=== PATIENT | male | born 1935 | race Caucasian/White ===

== ENCOUNTER 2016-08-09 10:56 | Inpatient (IN) | payer MEDICARE ==
[~2016-08-09 10:56] MED LIST: ALPRAZolam 0.25 MG TAB PO PRN; ALPRAZolam 0.5 MG TAB PO PRN; ASPIRIN 325 MG TAB PO STA; ATORVASTATIN 80 MG TAB PO STA; NITROGLYCERIN SL TABS 0.4 MG TAB SUBLINGUAL PRN; SODIUM CHLORIDE 0.9% 1,000 ML in EMPTY BAG 1 BAG IV ONE
[2016-08-09 11:36] LABS: Basophils % (A) 0 %; CH 33.1; CHCM 33.4; Eosinophils # (A) 0.1 k/uL (0-0.7); Eosinophils % (A) 2 %; HCT 42.5 % (39.0-53.0); HDW 2.39; HGB 14.1 gm/dL (13.0-17.5); Luc # (Auto) 0.04; Luc % (Auto) 1; Lymphocytes # (A) 1.7 k/uL (1.0-4.8); Lymphocytes % (A) 38 %; MCH 33.2 pg (25.0-35.0); MCHC 33.3 g/dL (31.0-37.0); MCV 99.6 fL (80.0-100.0); Mean Platelet Volume 9.1; Monocytes # (A) 0.2 k/uL (0-1.0); Monocytes % (A) 5 %; Neutrophils # (A) 2.4 k/uL (1.3-7.7); Neutrophils % (A) 55 %; RBC 4.26 m/uL (4.30-5.90); RDW 14.1 % (11.5-15.5); WBC 4.4 k/uL (3.8-10.6); WBC (Perox) 4.28
[2016-08-09] MEDS ORDERED: HEPARIN SODIUM 1,000 UNIT/ML VIAL ONE (11:39)
[2016-08-09] MEDS ORDERED: VERAPAMIL 2.5 MG/ML 2 ML AMP ONE (11:39)
[2016-08-09] MEDS ORDERED: LIDOCAINE 2% INJ 20 MG/ML (20 ML MDV) ONE (11:40)
[2016-08-09 11:42] LABS: INR 1.3 (<1.1); Prothrombin Time 12.9 sec (9.0-12.0)
[2016-08-09 11:47] LABS: Glucose 205 mg/dL (74-99)
[2016-08-09 11:48] LABS: Anion Gap 9 mmol/L; Blood Urea Nitrogen 15 mg/dL (9-20); Calcium 9.2 mg/dL (8.4-10.2); Carbon Dioxide 26 mmol/L (22-30); Chloride 108 mmol/L (98-107); Non-African American GFR(MDRD) >60 (>60 ml/min/1.73 sqM); Potassium 4.3 mmol/L (3.5-5.1); Sodium 143 mmol/L (137-145)
[2016-08-09 11:56] LABS: RBC Morphology Normal
[2016-08-09] MEDS ORDERED: MIDAZOLAM 2 MG/2 ML VIAL ONE (11:59)
[2016-08-09] MEDS ORDERED: MIDAZOLAM 2 MG/2 ML VIAL IV ONE (12:24)
[2016-08-09] MEDS ORDERED: fentaNYL (PF) 50 MCG/ML 2 ML AMP ONE ×2 (12:26→12:27)
[2016-08-09] MEDS ORDERED: LIDOCAINE 2% INJ 20 MG/ML SQ ONE (12:26)
[2016-08-09] MEDS: fentaNYL (PF) 50 MCG/ML 2 ML AMP IV ONE ×2 (12:30→12:40)
[2016-08-09] MEDS: VERAPAMIL SYRINGE (5 MG/10 ML) IV ONE ×2 (12:35→12:45)
[2016-08-09] MEDS ORDERED: HEPARIN SODIUM 1,000 UNIT/ML VIAL IV ONE (12:35)
[2016-08-09] MEDS ORDERED: IOHEXOL 350 MG/ML 125ML BOTTLE INJ ONE (12:47)
[2016-08-09 12:58] LABS: Glucose,Whole Blood 184 mg/dL (75-99)
[2016-08-09] MEDS ORDERED: RX INFO: IV CONTRAST WAS GIVEN 1 EACH MISC MISCELLANE PRN (12:59)
[2016-08-09] MEDS ORDERED: SODIUM CHLORIDE 0.9% 1,000 ML IV SCH (13:00)
[2016-08-09 13:28] LABS: Glucose,Whole Blood 151 mg/dL (75-99)
--- NOTE | 2016-08-09 13:54 | P.GSCN ---
History of Present Illness Consult date: 08/09/16 Reason for Consult: Coronary artery disease History of present illness: The patient is an 80-year-old male a history of multiple medical problems who reports worsening dyspnea on exertion for the past several months. He states that he can only walk about 20 yards before getting short of breath. He denies chest pain. He denies uterus, chills, swelling in his legs, or syncopal episodes. He states that overall he is quite independent. He lives alone at home and does all of his activities of daily living himself. Elective cardiac catheterization performed today reveals multivessel coronary artery disease. I was asked to evaluate him for possible coronary artery bypass surgery. 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) - Cardiovascular Reports decreased exercise tolerance, Reports dyspnea on exertion, Reports shortness of breath - Genitourinary Reports kidney stones, Reports urinary hesitancy Past Medical History Past Medical History: Diabetes Mellitus, Deep Vein Thrombosis (DVT), Eye Disorder, Hyperlipidemia, Osteoarthritis (OA), Prostate Disorder, Pulmonary Embolus (PE) Additional Past Medical History / Comment(s): SOB w/exertion History of Any Multi-Drug Resistant Organisms: None Reported Additional Past Surgical History / Comment(s): corneal transplant Past Anesthesia/Blood Transfusion Reactions: No Reported Reaction Past Psychological History: No Psychological Hx Reported Smoking Status: Former smoker Past Alcohol Use History: None Reported Additional Past Alcohol Use History / Comment(s): smoked a little as teen Past Drug Use History: None Reported - Past Family History Mother Family Medical History: No Reported History Medications and Allergies Home Medications Medication Instructions Recorded Confirmed Type Clindamycin Opthalmic 1 drop BOTH EYES TUTH 08/06/16 History Dorzolamide 2% [Trusopt 2%] 1 drops LEFT EYE DAILY 08/06/16 08/09/16 History Glimepiride [Amaryl] 4 mg PO BID 08/06/16 08/09/16 History Ibuprofen [Motrin] 800 mg PO Q8HR PRN 08/06/16 08/09/16 History Metoprolol Succinate [Toprol XL] 25 mg PO DAILY 08/06/16 08/09/16 History Pravastatin Sodium [Pravachol] 10 mg PO DAILY 08/06/16 08/09/16 History Warfarin [Coumadin] 10 mg PO DAILY 08/06/16 08/09/16 History glipiZIDE [Glucotrol] 10 mg PO DAILY 08/06/16 08/09/16 History metFORMIN HCL [metFORMIN HCL ER] 1,000 mg PO BID 08/06/16 08/09/16 History Allergies Allergy/AdvReac Type Severity Reaction Status Date / Time Penicillins Allergy Swelling Verified 08/09/16 11:17 codeine AdvReac agitated Verified 08/09/16 11:17 Surgical - Exam Vital Signs Temp Pulse Resp BP Pulse Ox 97.6 F 61 18 166/77 95 08/09/16 11:27 08/09/16 11:27 08/09/16 11:27 08/09/16 11:27 08/09/16 11:27 - General well developed, well nourished, no distress - Eyes normal ocular movement - Respiratory normal respiratory effort, clear to auscultation - Cardiovascular Rhythm: regular - Abdomen Abdomen: soft, non tender - Psychiatric oriented to time, oriented to person, oriented to place, speech is normal Results - Labs 08/09/16 11:20 08/09/16 11:20 Abnormal Lab Results - Last 24 Hours (Table) 08/09/16 08/09/16 08/09/16 Range/Units 11:20 11:20 11:20 RBC 4.26 L (4.30-5.90) m/uL Plt Count 68 L (150-450) k/uL PT 12.9 H (9.0-12.0) sec Chloride 108 H (98-107) mmol/L Glucose 205 H (74-99) mg/dL POC Glucose (mg/dL) (75-99) mg/dL 08/09/16 08/09/16 Range/Units 11:22 13:07 RBC (4.30-5.90) m/uL Plt Count (150-450) k/uL PT (9.0-12.0) sec Chloride (98-107) mmol/L Glucose (74-99) mg/dL POC Glucose (mg/dL) 184 H 151 H (75-99) mg/dL Diabetes panel 08/09/16 Range/Units 11:20 Sodium 143 (137-145) mmol/L Potassium 4.3 (3.5-5.1) mmol/L Chloride 108 H (98-107) mmol/L Carbon Dioxide 26 (22-30) mmol/L BUN 15 (9-20) mg/dL Creatinine 1.06 (0.66-1.25) mg/dL Glucose 205 H (74-99) mg/dL Calcium 9.2 (8.4-10.2) mg/dL Calcium panel 08/09/16 Range/Units 11:20 Calcium 9.2 (8.4-10.2) mg/dL Pituitary panel 08/09/16 Range/Units 11:20 Sodium 143 (137-145) mmol/L Potassium 4.3 (3.5-5.1) mmol/L Chloride 108 H (98-107) mmol/L Carbon Dioxide 26 (22-30) mmol/L BUN 15 (9-20) mg/dL Creatinine 1.06 (0.66-1.25) mg/dL Glucose 205 H (74-99) mg/dL Calcium 9.2 (8.4-10.2) mg/dL Adrenal panel 08/09/16 Range/Units 11:20 Sodium 143 (137-145) mmol/L Potassium 4.3 (3.5-5.1) mmol/L Chloride 108 H (98-107) mmol/L Carbon Dioxide 26 (22-30) mmol/L BUN 15 (9-20) mg/dL Creatinine 1.06 (0.66-1.25) mg/dL Glucose 205 H (74-99) mg/dL Calcium 9.2 (8.4-10.2) mg/dL Assessment and Plan (1) Coronary artery disease Status: Acute Plan: The patient's cardiac catheterization was personally reviewed. He does appear to have targets suitable for bypass. A coronary artery bypass is recommended. The risks, benefits, and alternatives to this procedure were discussed with the patient and his family members. All of their questions were answered. At this point, the patient is unsure whether he would like to proceed with surgery. He would like to consider his options and discuss them with his family tonight. In fact he wishes to be discharged home this afternoon. I did provide him with my contact information and told him we will check on him again if he is still here in the morning. If he is agreeable, we will obtain the standard preoperative workup to assist in risk-stratifying his surgery. After reviewing his workup thus far, he does appear to have some thrombocytopenia. His most recent platelet count is 68,000. I would like him to be evaluated by hematology as part of his workup. Thank you for allowing me to participate in the care of this patient. Should you have any questions please feel free to contact me at your earliest convenience. Time with Patient: Greater than 30
--- NOTE | 2016-08-09 15:23 | LTR ---
August 09, 2016 RE: Angel Michele Dear Sage: Mr. Angel Michele underwent a heart catheterization today and that showed critical disease involving the distal left main coronary artery with severe triple-vessel CAD. In view of his anatomy, I recommended proceeding with coronary artery bypass grafting. I want to thank you for allowing me to participate in his care and please do not hesitate to call if you have any questions or concerns. Sincerely, FRANCES OLEARY MD
[2016-08-09] MEDS ORDERED: MD COMMUNICATION TO PHARMACY 1 EACH MISC PO ONE (15:33)
[2016-08-09 16:20] LABS: Basophils % (A) 0 %; CH 33.5; CHCM 34.1; Eosinophils # (A) 0.1 k/uL (0-0.7); Eosinophils % (A) 2 %; HDW 2.51; HGB 13.5 gm/dL (13.0-17.5); Luc # (Auto) 0.03; Luc % (Auto) 1; Lymphocytes # (A) 1.3 k/uL (1.0-4.8); Lymphocytes % (A) 36 %; MCH 32.5 pg (25.0-35.0); MCHC 32.9 g/dL (31.0-37.0); MCV 98.7 fL (80.0-100.0); Mean Platelet Volume 9.4; Monocytes # (A) 0.2 k/uL (0-1.0); Monocytes % (A) 6 %; Neutrophils % (A) 56 %; RBC 4.16 m/uL (4.30-5.90); RDW 13.8 % (11.5-15.5); WBC 3.6 k/uL (3.8-10.6); WBC (Perox) 3.36
[2016-08-09 16:24] LABS: INR 1.3 (<1.1); Partial Thromboplastin Time 24.5 sec (22.0-30.0); Prothrombin Time 12.6 sec (9.0-12.0)
[2016-08-09 16:29] LABS: ALT 55 U/L (21-72); AST 37 U/L (17-59); Alkaline Phosphatase 68 U/L (38-126); Anion Gap 7 mmol/L; Blood Urea Nitrogen 14 mg/dL (9-20); Calcium 9.1 mg/dL (8.4-10.2); Carbon Dioxide 25 mmol/L (22-30); Chloride 109 mmol/L (98-107); Cholesterol 175 mg/dL (<200); Glucose 211 mg/dL (74-99); HDL Cholesterol 36 mg/dL (40-60); Magnesium 1.9 mg/dL (1.6-2.3); Non-African American GFR(MDRD) >60 (>60 ml/min/1.73 sqM); Potassium 3.9 mmol/L (3.5-5.1); Sodium 141 mmol/L (137-145); Total Bilirubin 2.1 mg/dL (0.2-1.3); Total Protein 6.5 g/dL (6.3-8.2); Triglycerides 314 mg/dL (<150)
[2016-08-09 16:58] LABS: Hepatitis B Surface Ag Index 0.06
[2016-08-09] MEDS ORDERED: HEPARIN SODIUM,PORCINE 5,000 UNIT/ML 1 ML VIAL IV ONE (17:00)
[2016-08-09 17:04] LABS: Hepatitis B Core IgM Index 0.01
[2016-08-09 17:15] LABS: Hepatitis C Virus IgG Index 0.02
[2016-08-09 17:20] LABS: Hepatitis C Virus IgG Ab Negative (Negative)
[2016-08-09] MEDS: HEPARIN SODIUM,PORCINE/D5W PMX 25,000 UNIT in DEXTROSE/WATER 1 500ML.BAG IV SCH (17:28)
--- NOTE | 2016-08-09 19:20 | XR ---
EXAMINATION TYPE: XR chest 2V DATE OF EXAM: 08/09/2016 6:30 PM COMPARISON: NONE HISTORY: Preoperative. Cardiac surgery. TECHNIQUE: Frontal and lateral views of the chest are obtained. FINDINGS: There is no focal air space opacity, pleural effusion, or pneumothorax seen. The cardiac silhouette size is upper limits of normal. The osseous structures are intact. IMPRESSION: No acute cardiopulmonary process.
[2016-08-09 21:06] LABS: Glucose,Whole Blood 186 mg/dL (75-99)
[2016-08-09] MEDS: GLIMEPIRIDE 4 MG TAB PO SCH (22:06)
[2016-08-09] MEDS: HEPARIN SODIUM,PORCINE 5,000 UNIT/ML 1 ML VIAL IV PRN (22:06)
[2016-08-09 22:29] LABS: Appearance,Urine Clear (Clear); Bilirubin,Urine Negative (Negative); Glucose,Urine (UA) Negative (Negative); Ketones,Urine Negative (Negative); Leukocyte Esterase,Urine Negative (Negative); Nitrite,Urine Negative (Negative); PH, Urine 6.5 (5.0-8.0); Protein,Urine Negative (Negative); Specific Gravity,Urine 1.023 (1.001-1.035); UA Billing (MACRO vs. MICRO) CHEM; Urobilinogen,Urine <2.0 mg/dL (<2.0)
[2016-08-10 06:00] LABS: Glucose,Whole Blood 155 mg/dL (75-99)
[2016-08-10] MEDS: HEPARIN SODIUM,PORCINE 5,000 UNIT/ML 1 ML VIAL IV PRN ×2 (06:21→16:12)
[2016-08-10 06:40] LABS: CH 32.9; MCV 97.4 fL (80.0-100.0); Monocytes # (A) 0.2 k/uL (0-1.0); RDW 13.8 % (11.5-15.5)
[2016-08-10 07:17] LABS: Basophils % (A) 0 %; Eosinophils # (A) 0.1 k/uL (0-0.7); Eosinophils % (A) 2 %; HCT 39.2 % (39.0-53.0); HDW 2.49; HGB 13.1 gm/dL (13.0-17.5); Luc # (Auto) 0.06; Luc % (Auto) 2; Lymphocytes # (A) 1.4 k/uL (1.0-4.8); Lymphocytes % (A) 36 %; MCH 32.6 pg (25.0-35.0); MCHC 33.4 g/dL (31.0-37.0); Mean Platelet Volume 9.5; Monocytes % (A) 6 %; Neutrophils # (A) 2.2 k/uL (1.3-7.7); Neutrophils % (A) 55 %; RBC 4.02 m/uL (4.30-5.90); WBC (Perox) 3.47
--- NOTE | 2016-08-10 08:07 | US ---
EXAMINATION TYPE: US carotid duplex BILAT DATE OF EXAM: 08/09/2016 5:03 PM COMPARISON: NONE CLINICAL HISTORY: Ankle Brachial Index (JENNIFER) . EXAM MEASUREMENTS: RIGHT: Peak Systolic Velocity (PSV) cm/sec ----- Right CCA: 54.3 ----- Right ICA: 51.0 ----- Right ECA: 112.4 ICA/CCA ratio: 0.9 RIGHT: End Diastole cm/sec ----- Right CCA: 11.3 ----- Right ICA: 16.4 ----- Right ECA: 7.2 LEFT: Peak Systolic Velocity (PSV) cm/sec ----- Left CCA: 65.5 ----- Left ICA: 61.2 ----- Left ECA: 82.4 ICA/CCA ratio: 0.9 LEFT: End Diastole cm/sec ----- Left CCA: 12.4 ----- Left ICA: 18.5 ----- Left ECA: 13.3 VERTEBRALS (direction of flow): Right Vertebral: Antegrade Left Vertebral: Antegrade No significant velocity elevations IMPRESSION: 1. Atheromatous plaquing without significant flow-limiting stenosis. Criteria for Assigning % of Stenosis / Diameter reduction (Estimation based on the indirect measurements of the internal carotid artery velocities (ICA PSV). 1. Normal (no stenosis)=ICA PSV < 125 cm/s: ratio < 2.0: ICA EDV<40 cm/s. 2. Less than 50% stenosis=ICA PSV < 125 cm/s: ratio < 2.0: ICA EDV<40 cm/s. 3. 50 to 69% stenosis=ICA PSV of 125 to 230 cm/s: ration 2.0 ? 4.0: ICA EDV 40-100 cm/s. 4. Greater than 70% stenosis to near occlusion= ICA PSV > 230 cm/s: ratio > 4.0: ICA EDV > 100 cm/s. 5. Near occlusion= ICA PSV velocities may be low or undetectable: variable ratio and ICA EDV. 6. Total occlusion=unable to detect flow.
[2016-08-10] MEDS ORDERED: PRAVASTATIN SODIUM 20 MG TAB PO SCH (09:00)
[2016-08-10] MEDS: DORZOLAMIDE HCL 2% DROPS 10 ML BTL LEFT EYE SCH (09:01)
[2016-08-10] MEDS: MUPIROCIN 2% OINT 22 GM TUBE TOPICAL SCH ×2 (09:02→21:08)
[2016-08-10] MEDS: GLIMEPIRIDE 4 MG TAB PO SCH ×2 (09:02→21:08)
[2016-08-10] MEDS: glipiZIDE 10 MG TAB PO SCH (09:02)
[2016-08-10] MEDS: METOPROLOL SUCCINATE (ER) 25 MG TAB.ER.24H PO SCH (09:02)
--- NOTE | 2016-08-10 09:29 | ECHOF ---
Referral Reason:LV function MEASUREMENTS -------- HEIGHT: 177.8 cm WEIGHT: 111.6 kg BP: 151/70 IVSd: 1.6 cm (0.6 - 1.1) LVIDd: 5.1 cm (3.9 - 5.3) LVPWd: 1.6 cm (0.6 - 1.1) IVSs: 2.4 cm LVIDs: 3.6 cm LVPWs: 2.4 cm LAESV Index (A-L): 16.65 ml/m Ao Diam: 3.5 cm (2.0 - 3.7) AV Cusp: 1.9 cm (1.5 - 2.6) LA Diam: 3.8 cm (2.7 - 3.8) MV E Marcio: 0.61 m/s MV DecT: 267 ms MV A Marcio: 0.81 m/s MV E/A Ratio: 0.76 AV maxP.95 mmHg AV meanP.53 mmHg RAP: 5.00 mmHg RVSP: 12.04 mmHg FINDINGS -------- Sinus rhythm. This was a technically difficult study with suboptimal views. There is moderate concentric left ventricular hypertrophy. Overall left ventricular systolic function is low-normal with, an EF between 50 - 55 %. The right ventricle is normal in size and function. Normal LA size by volume 22+/-6 ml/m2. The right atrium is normal in size. 1.5mg of Definity was utilized for enhancement of images Aortic valve is trileaflet and is mildly thickened. There is no evidence of aortic regurgitation. There is no evidence of aortic stenosis. Mild mitral annular calcification present. There is trace mitral regurgitation. Trace tricuspid regurgitation present. There is no evidence of pulmonary hypertension. The right ventricular systolic pressure, as measured by Doppler, is 12.04mmHg. The pulmonic valve was not well visualized. The aortic root size is normal. There is no pericardial effusion. CONCLUSIONS -------- 1. Sinus rhythm. 2. Trace tricuspid regurgitation present. 3. There is no evidence of pulmonary hypertension. 4. The right ventricular systolic pressure, as measured by Doppler, is 12.04mmHg. 5. The pulmonic valve was not well visualized. 6. The aortic root size is normal. 7. There is no pericardial effusion. 8. This was a technically difficult study with suboptimal views. 9. There is moderate concentric left ventricular hypertrophy. 10. Overall left ventricular systolic function is low-normal with, an EF between 50 - 55 %. 11. Normal LA size by volume 22+/-6 ml/m2. 12. 1.5mg of Definity was utilized for enhancement of images 13. Aortic valve is trileaflet and is mildly thickened. 14. Mild mitral annular calcification present. 15. There is trace mitral regurgitation. INVESTMENT ACCOUNTANT: Darwin Schaefer RDCS
--- NOTE | 2016-08-10 09:56 | CC ---
DATE OF SERVICE: August 09, 2016 PERFORMING PHYSICIAN: Angel Tinsley MD, cigar packer and grader. PROCEDURE PERFORMED: Selective right and left coronary angiogram. INDICATION: This is a pleasant 80-year-old gentleman who was referred by Dr. Sage Parks for further evaluation of chest discomfort. The patient has been experiencing intermittent episodes of chest discomfort consistent with angina. He underwent dobutamine stress echocardiogram which showed anterior and inferior ischemia. He was brought today to undergo a heart catheterization. APPROACH: Right radial artery. COMPLICATIONS: None. LEVEL OF SEDATION: Moderate. Sedation length of 30 minutes. PROCEDURE DESCRIPTION: After obtaining informed consent, the patient was brought to the cardiac molder labels. The right common femoral artery was cannulated using micropuncture technique. The micropuncture wire passed easily, then I placed a 6 [place] sheath in the right radial artery. Subsequently, I did selective right and left coronary angiogram using JR4 and JL 3.5 catheters. The procedure was completed without any complication. SELECTIVE CORONARY ANGIOGRAM: 1. The right coronary artery is a large-caliber vessel and it is totally occluded in the midportion. 2. The left main has critical lesion distally appeared to be in the range of 80 to 90%. The lesion involving the ostial left circumflex. 3. The left circumflex is a large-caliber vessel and a nondominant vessel. The ostial left circumflex is diseased in the range of 80% and involving in the plaque from the left main. The left circumflex in the proximal portion gives rise into a large OM branch, which has another disease in the range of 90% to 95%. The left circumflex continues after that as a small to medium caliber vessel in the AV groove. 4. Left anterior descending artery: The ostial/proximal LAD is involved in the plaque from the left main and is heavy calcified with disease that appeared to be in the range of 80% to 90%. The proximal LAD after that had another eccentric lesion, seems to be in the range of 80% to 90%. The LAD in the midportion, seems to have intermediate disease only and distally appeared to have mild disease only. Extensive left to right collaterals were seen filling the RCA distally. CONCLUSION: 1. Heavily calcified right and left coronary system. 2. Occluded right coronary artery in the midportion with collateral fills from the left coronary system. 3. Critical disease involving the distal left main coronary artery and involving the ostial left circumflex and ostial left anterior descending. 4. Critical disease involving the first obtuse marginal branch of the left circumflex. 5. Critical disease involving the proximal left anterior descending. POSTPROCEDURE MANAGEMENT: The patient will be scheduled to be seen by a surgeon for evaluation of coronary arteries.
--- NOTE | 2016-08-10 11:04 | P.PN ---
Subjective Principal diagnosis: Multivessel coronary artery disease, preop coronary artery bypass grafting surgery. Patient currently sitting up in bed in no apparent distress. Son at bedside. Patient is frustrated that he has to wait for surgery. Objective - Vital Signs Vital signs: Vital Signs Temp 97.6 F 08/10/16 09:04 Pulse 60 08/10/16 09:04 Resp 18 08/10/16 09:04 BP 140/81 08/10/16 09:04 Pulse Ox 95 08/10/16 09:04 Intake & Output 08/09/16 08/10/16 08/10/16 18:59 06:59 18:59 Intake Total 795 892.584 240 Output Total 300 300 400 Balance 495 592.584 -160 Weight 109.6 kg Intake: IV 325 600 Sodium Chloride 0.9% 1, 200 600 000 ml @ 100 mls/hr IV . Q10H [facility]OR Rx#:[id number] Intake, IV Titration 20 292.584 Amount Heparin Sodium,Porcine/ 20 292.584 D5w Pmx 25,000 unit In Dextrose/Water 1 500ml. bag @ 8.9 UNITS/KG/HR 19. 86 mls/hr IV .Q24H [facility] Rx #:[id number] Oral 450 240 Output: Urine 300 300 400 Other: Voiding Method Toilet Toilet # Voids 1 1 - Constitutional General appearance: Present: cooperative, no acute distress, obese - Respiratory Details: Lungs sounds most bilaterally. Respirations even, nonlabored. Currently on room air with oxygen saturation 95%. - Cardiovascular Details: S1, S2 present. Regular rate and rhythm, normal sinus rhythm on telemetry. - Gastrointestinal Gastrointestinal Comment(s): Abdomen soft, nontender, nondistended. Active bowel sounds 4 quadrants. - Genitourinary Genitourinary Comment(s): Voiding clear, yellow urine. - Musculoskeletal Musculoskeletal: Present: gait normal, strength equal bilaterally - Psychiatric Psychiatric: Present: A&O x's 3, appropriate affect, intact judgment & insight - Allied health notes Allied health notes reviewed: nursing - Labs CBC & Chem 7: 08/10/16 04:30 08/09/16 15:45 Labs: Abnormal Lab Results - Last 24 Hours (Table) 08/09/16 08/09/16 08/09/16 Range/Units 11:20 11:20 11:20 WBC (3.8-10.6) k/uL RBC 4.26 L (4.30-5.90) m/uL Plt Count 68 L (150-450) k/uL PT 12.9 H (9.0-12.0) sec APTT (22.0-30.0) sec Chloride 108 H (98-107) mmol/L Glucose 205 H (74-99) mg/dL POC Glucose (mg/dL) (75-99) mg/dL Hemoglobin A1c (4.2-6.1) % Total Bilirubin (0.2-1.3) mg/dL Triglycerides (<150) mg/dL HDL Cholesterol (40-60) mg/dL 08/09/16 08/09/16 08/09/16 Range/Units 11:22 13:07 15:45 WBC 3.6 L (3.8-10.6) k/uL RBC 4.16 L (4.30-5.90) m/uL Plt Count 63 L (150-450) k/uL PT (9.0-12.0) sec APTT (22.0-30.0) sec Chloride (98-107) mmol/L Glucose (74-99) mg/dL POC Glucose (mg/dL) 184 H 151 H (75-99) mg/dL Hemoglobin A1c (4.2-6.1) % Total Bilirubin (0.2-1.3) mg/dL Triglycerides (<150) mg/dL HDL Cholesterol (40-60) mg/dL 08/09/16 08/09/16 08/09/16 Range/Units 15:45 15:45 15:45 WBC (3.8-10.6) k/uL RBC (4.30-5.90) m/uL Plt Count (150-450) k/uL PT 12.6 H (9.0-12.0) sec APTT (22.0-30.0) sec Chloride 109 H (98-107) mmol/L Glucose 211 H (74-99) mg/dL POC Glucose (mg/dL) (75-99) mg/dL Hemoglobin A1c 7.0 H (4.2-6.1) % Total Bilirubin 2.1 H (0.2-1.3) mg/dL Triglycerides 314 H (<150) mg/dL HDL Cholesterol 36 L (40-60) mg/dL 08/09/16 08/09/16 08/10/16 Range/Units 20:35 21:05 04:30 WBC (3.8-10.6) k/uL RBC 4.02 L (4.30-5.90) m/uL Plt Count 57 L (150-450) k/uL PT (9.0-12.0) sec APTT 43.3 H (22.0-30.0) sec Chloride (98-107) mmol/L Glucose (74-99) mg/dL POC Glucose (mg/dL) 186 H (75-99) mg/dL Hemoglobin A1c (4.2-6.1) % Total Bilirubin (0.2-1.3) mg/dL Triglycerides (<150) mg/dL HDL Cholesterol (40-60) mg/dL 08/10/16 08/10/16 Range/Units 04:31 05:58 WBC (3.8-10.6) k/uL RBC (4.30-5.90) m/uL Plt Count (150-450) k/uL PT (9.0-12.0) sec APTT 40.8 H (22.0-30.0) sec Chloride (98-107) mmol/L Glucose (74-99) mg/dL POC Glucose (mg/dL) 155 H (75-99) mg/dL Hemoglobin A1c (4.2-6.1) % Total Bilirubin (0.2-1.3) mg/dL Triglycerides (<150) mg/dL HDL Cholesterol (40-60) mg/dL - Imaging and Cardiology Chest x-ray: image reviewed Carotid Dopplers, pulmonary function test, echocardiogram, lower extremity vein mapping reviewed. Assessment and Plan (1) Diabetes Status: Acute (2) Hyperlipidemia Status: Acute (3) History of pulmonary embolus (PE) Status: Acute (4) History of deep vein thrombosis Status: Acute (5) Thrombocytopenia Status: Acute (6) Coronary artery disease Status: Acute Plan: 1. Continue beta abran, statin, heparin drip. Recommend daily aspirin. No Plavix or Coumadin in anticipation of pending surgery. 2. Preoperative teaching initiated and reinforced. 3. Preoperative testing initiated, results reviewed. 4. Hematology consulted secondary to thrombocytopenia. Appreciate recommendations. 5. Patient is agreeable at this time for surgery, however he states that he has to wait longer than Tuesday he wished to go home and come back one week and take him to surgery. Reinforced medical recommendation to remain in the hospital secondary to the nature of his disease process. 6. Encourage increased activity, ambulate in the hallway. 7. Encourage incentive spirometry practice preoperatively. 8. GI/DVT prophylaxis. 9. Anticipate possible coronary artery bypass graft surgery on Tuesday pending completion of all preoperative testing and recommendations of hematology and pulmonology.
[2016-08-10 11:14] LABS: Glucose,Whole Blood 170 mg/dL (75-99)
--- NOTE | 2016-08-10 12:28 | P.CNPUL ---
History of Present Illness Consult date: 08/10/16 Chief complaint: Preoperative pulmonary evaluation for coronary artery bypass surgery History of present illness: 80-year-old male patient, complaining of exertional dyspnea over the past several months. The patient denied having any chest pain. 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 The patient was found to have occluded right coronary artery with collaterals filling from the left. The patient was found to have critical disease involving the left main coronary artery and critical disease involving diffuse marginal branch of circumflex and proximal LAD. Based on this, coronary artery bypass surgery was recommended. The patient was seen by cardiothoracic surgery and the tentative plan to undergo surgery on this patient is on Tuesday. The preoperative echocardiogram showed a preserved LV function with an ejection fraction of 50-55%. No evidence of any pulmonary hypertension. No evidence of any valvular abnormalities. There is evidence of hypertensive heart disease with concentric left ventricular hypertrophy. Chest x-ray shows no acute cardio pulmonary process. He has history of pulmonary embolism and DVT and the patient has been maintained on anticoagulation on outpatient basis with warfarin. Review of Systems All systems: negative Constitutional: Denies chills, Denies fever Eyes: denies blurred vision, denies pain Ears, nose, mouth and throat: Denies headache, Denies sore throat Cardiovascular: Denies chest pain, Denies shortness of breath Respiratory: Reports dyspnea, Denies cough Gastrointestinal: Denies abdominal pain, Denies diarrhea, Denies nausea, Denies vomiting Musculoskeletal: Denies myalgias Integumentary: Denies pruritus, Denies rash Neurological: Denies numbness, Denies weakness Psychiatric: Denies anxiety, Denies depression Endocrine: Denies fatigue, Denies weight change Past Medical History Past Medical History: Diabetes Mellitus, Deep Vein Thrombosis (DVT), Eye Disorder, Hyperlipidemia, Osteoarthritis (OA), Prostate Disorder, Pulmonary Embolus (PE) Additional Past Medical History / Comment(s): Three-vessel coronary artery disease and details discussed above History of Any Multi-Drug Resistant Organisms: None Reported Additional Past Surgical History / Comment(s): corneal transplant Past Anesthesia/Blood Transfusion Reactions: No Reported Reaction Past Psychological History: No Psychological Hx Reported Smoking Status: Former smoker Past Alcohol Use History: None Reported Additional Past Alcohol Use History / Comment(s): smoked a little as teen Past Drug Use History: None Reported - Past Family History Mother Family Medical History: No Reported History Medications and Allergies Home Medications Medication Instructions Recorded Confirmed Type Dorzolamide 2% [Trusopt 2%] 1 drops LEFT EYE BID 08/06/16 08/09/16 History Glimepiride [Amaryl] 4 mg PO BID 08/06/16 08/09/16 History Metoprolol Succinate [Toprol XL] 25 mg PO DAILY 08/06/16 08/09/16 History Pravastatin Sodium [Pravachol] 10 mg PO DAILY 08/06/16 08/09/16 History Warfarin [Coumadin] 10 mg PO DAILY 08/06/16 08/09/16 History glipiZIDE [Glucotrol] 10 mg PO DAILY 08/06/16 08/09/16 History Latanoprost [Xalatan 0.005%] 1 drop BOTH EYES HS 08/09/16 08/09/16 History metFORMIN HCL [Glucophage] 500 mg PO TID-W/MEALS 08/09/16 08/09/16 History prednisoLONE ACETATE 1% OPHTH 1 drops LEFT EYE MOTH 08/09/16 08/09/16 History [Pred Forte 1%] Allergies Allergy/AdvReac Type Severity Reaction Status Date / Time Penicillins Allergy Swelling Verified 08/09/16 19:26 codeine AdvReac Agitation Verified 08/09/16 19:26 Physical Exam Vitals: Vital Signs Temp Pulse Pulse Resp BP BP Pulse Ox 08/10/16 11:35 97.7 F 60 66 16 118/67 96 08/10/16 09:04 97.6 F 60 73 16 140/81 95 08/10/16 04:00 97.8 F 60 18 121/67 96 08/09/16 23:00 98.0 F 60 18 126/69 94 L 08/09/16 20:25 97.0 F L 59 L 18 133/73 94 L 08/09/16 18:21 97.6 F 57 L 17 141/75 94 L 08/09/16 17:15 58 L 18 146/73 98 08/09/16 16:45 58 L 18 162/72 98 08/09/16 16:30 60 18 158/70 98 08/09/16 16:15 58 L 18 164/69 96 08/09/16 16:00 58 L 18 146/74 97 08/09/16 15:44 18 160/77 98 08/09/16 14:32 18 149/70 95 08/09/16 13:00 20 176/82 97 Intake and Output 08/09/16 08/10/16 08/10/16 22:59 06:59 14:59 Intake Total 662.349 800.235 240 Output Total 300 300 400 Balance 362.349 500.235 -160 Intake: IV 100 600 Sodium Chloride 0.9% 1, 100 600 000 ml @ 100 mls/hr IV . Q10H [facility] Rx#:[id number] Intake, IV Titration 112.349 200.235 Amount Heparin Sodium,Porcine/ 112.349 200.235 D5w Pmx 25,000 unit In Dextrose/Water 1 500ml. bag @ 8.9 UNITS/KG/HR 19. 86 mls/hr IV .Q24H [facility] Rx #:[id number] Oral 450 240 Output: Urine 300 300 400 Other: Voiding Method Toilet Toilet Toilet # Voids 1 1 Weight 109.6 kg The patient appeared well nourished and normally developed. Vital signs as documented. Head exam is unremarkable. No scleral icterus or corneal arcus noted. Neck is without jugular venous distension, thyromegaly, or carotid bruits. Carotid upstrokes are brisk bilaterally. Lungs are clear to auscultation and percussion. Cardiac exam reveals the PMI to be normally sized and situated. Rhythm is regular. First and second heart sounds normal. No murmurs, rubs or gallops. Abdominal exam reveals normal bowel sounds, no masses , no organomegaly and no aortic enlargement. Extremities are nonedematous and both femoral and pedal pulses are normal. Results - Laboratory Findings CBC and BMP: 08/10/16 04:30 08/09/16 15:45 PT/INR, D-dimer PT 12.6 sec (9.0-12.0) H 08/09/16 15:45 INR 1.3 (<1.1) 08/09/16 15:45 Abnormal lab findings: Abnormal Labs 08/09/16 08/09/16 08/09/16 11:20 11:20 11:20 WBC RBC 4.26 L Plt Count 68 L PT 12.9 H APTT Chloride 108 H Glucose 205 H POC Glucose (mg/dL) Hemoglobin A1c Total Bilirubin Triglycerides HDL Cholesterol 08/09/16 08/09/16 08/09/16 11:22 13:07 15:45 WBC 3.6 L RBC 4.16 L Plt Count 63 L PT APTT Chloride Glucose POC Glucose (mg/dL) 184 H 151 H Hemoglobin A1c Total Bilirubin Triglycerides HDL Cholesterol 08/09/16 08/09/16 08/09/16 15:45 15:45 15:45 WBC RBC Plt Count PT 12.6 H APTT Chloride 109 H Glucose 211 H POC Glucose (mg/dL) Hemoglobin A1c 7.0 H Total Bilirubin 2.1 H Triglycerides 314 H HDL Cholesterol 36 L 08/09/16 08/09/16 08/10/16 20:35 21:05 04:30 WBC RBC 4.02 L Plt Count 57 L PT APTT 43.3 H Chloride Glucose POC Glucose (mg/dL) 186 H Hemoglobin A1c Total Bilirubin Triglycerides HDL Cholesterol 08/10/16 08/10/16 08/10/16 04:31 05:58 11:12 WBC RBC Plt Count PT APTT 40.8 H Chloride Glucose POC Glucose (mg/dL) 155 H 170 H Hemoglobin A1c Total Bilirubin Triglycerides HDL Cholesterol - Diagnostic Findings Chest x-ray: image reviewed Assessment and Plan Plan: Assessment 1 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 The patient will be undergoing coronary bypass surgery. LV function is preserved with an ejection fraction of 55% 2 diabetes mellitus maintained on oral hypoglycemics 3 hypertension 4 hyperlipidemia 5 previous history of DVT and pulmonary embolism and the patient is demented on it combination with warfarin Plan Provide the patient 7 spirometer. Obtain a bedside spirometry. We'll continue following up this patient. For any postoperative pulmonary care and will manage the mechanical ventilator.
[2016-08-10] MEDS ORDERED: CLINDAMYCIN BOTH EYES SCH (13:00)
--- NOTE | 2016-08-10 14:38 | P.PN ---
Subjective Principal diagnosis: Shortness of breath and chest pain This is an 80-year-old gentleman referred to Dr. Jacques by Dr. Parks because of symptoms of shortness of breath and chest discomfort. He underwent a dobutamine stress echocardiographic study which revealed anterior and inferior ischemia hence the patient was brought here to undergo cardiac catheterization which was performed yesterday. Cardiac catheterization revealed totally occluded right coronary artery in the midportion, the left main has a critical lesion distally in the range of 80-90%. Lesion involving the ostial left circumflex and ostial LAD, critical disease involving the first obtuse marginal branch of the left circumflex, critical disease involving the proximal LAD. Patient was seen by cardiothoracic surgery and is scheduled to undergo coronary artery bypass grafting surgery on Tuesday of this week. He was seen and examined this morning, denies any difficulty breathing, no shortness of breath. Blood pressure 118/60 with a heart rate in the 60s. Hemoglobin 13.1 , platelet count 57. Objective - Vital Signs Vital signs: Vital Signs Temp 97.7 F 08/10/16 11:35 Pulse 60 08/10/16 11:35 Resp 18 08/10/16 11:35 BP 118/67 08/10/16 11:35 Pulse Ox 96 08/10/16 11:35 Intake & Output 08/09/16 08/10/16 08/10/16 18:59 06:59 18:59 Intake Total 795 892.584 480 Output Total 300 300 400 Balance 495 592.584 80 Weight 109.6 kg Intake: IV 325 600 Sodium Chloride 0.9% 1, 200 600 000 ml @ 100 mls/hr IV . Q10H [facility] Rx#:[id number] Intake, IV Titration 20 292.584 Amount Heparin Sodium,Porcine/ 20 292.584 D5w Pmx 25,000 unit In Dextrose/Water 1 500ml. bag @ 8.9 UNITS/KG/HR 19. 86 mls/hr IV .Q24H [facility] Rx #:[id number] Oral 450 480 Output: Urine 300 300 400 Other: Voiding Method Toilet Toilet # Voids 1 1 - Exam PHYSICAL EXAMINATION: HEENT: Head is atraumatic, normocephalic. Pupils equal, round. Neck is supple. There is no elevated jugular venous pressure. HEART EXAMINATION: Heart S1, S2 normal. No murmur or gallop heard. CHEST EXAMINATION: Lungs are clear to auscultation and precussion. No chest wall tenderness is noted on palpation or with deep breathing. ABDOMEN: Soft, nontender. Bowel sounds are heard. No organomegaly noted. Right radial site clean and dry, good distal pulse. EXTREMITIES: 2+ peripheral pulses with no evidence of peripheral edema and no calf tenderness noted. NEUROLOGIC patient is awake, alert and oriented -3. . - Labs CBC & Chem 7: 08/10/16 04:30 08/09/16 15:45 Labs: Abnormal Lab Results - Last 24 Hours (Table) 08/09/16 08/09/16 08/09/16 Range/Units 15:45 15:45 15:45 WBC 3.6 L (3.8-10.6) k/uL RBC 4.16 L (4.30-5.90) m/uL Plt Count 63 L (150-450) k/uL PT 12.6 H (9.0-12.0) sec APTT (22.0-30.0) sec Chloride 109 H (98-107) mmol/L Glucose 211 H (74-99) mg/dL POC Glucose (mg/dL) (75-99) mg/dL Hemoglobin A1c (4.2-6.1) % Total Bilirubin 2.1 H (0.2-1.3) mg/dL Triglycerides 314 H (<150) mg/dL HDL Cholesterol 36 L (40-60) mg/dL 08/09/16 08/09/16 08/09/16 Range/Units 15:45 20:35 21:05 WBC (3.8-10.6) k/uL RBC (4.30-5.90) m/uL Plt Count (150-450) k/uL PT (9.0-12.0) sec APTT 43.3 H (22.0-30.0) sec Chloride (98-107) mmol/L Glucose (74-99) mg/dL POC Glucose (mg/dL) 186 H (75-99) mg/dL Hemoglobin A1c 7.0 H (4.2-6.1) % Total Bilirubin (0.2-1.3) mg/dL Triglycerides (<150) mg/dL HDL Cholesterol (40-60) mg/dL 08/10/16 08/10/1617 Range/Units 04:30 04:31 05:58 WBC (3.8-10.6) k/uL RBC 4.02 L (4.30-5.90) m/uL Plt Count 57 L (150-450) k/uL PT (9.0-12.0) sec APTT 40.8 H (22.0-30.0) sec Chloride (98-107) mmol/L Glucose (74-99) mg/dL POC Glucose (mg/dL) 155 H (75-99) mg/dL Hemoglobin A1c (4.2-6.1) % Total Bilirubin (0.2-1.3) mg/dL Triglycerides (<150) mg/dL HDL Cholesterol (40-60) mg/dL 08/10/16 Range/Units 11:12 WBC (3.8-10.6) k/uL RBC (4.30-5.90) m/uL Plt Count (150-450) k/uL PT (9.0-12.0) sec APTT (22.0-30.0) sec Chloride (98-107) mmol/L Glucose (74-99) mg/dL POC Glucose (mg/dL) 170 H (75-99) mg/dL Hemoglobin A1c (4.2-6.1) % Total Bilirubin (0.2-1.3) mg/dL Triglycerides (<150) mg/dL HDL Cholesterol (40-60) mg/dL Microbiology - Last 24 Hours (Table) 08/09/16 22:10 Urine Culture - Preliminary Urine,Voided 08/09/16 22:10 Nasal Screen MRSA/MSSA ([facility]) - Preliminary Nasal Swab Assessment and Plan (1) S/P cardiac cath Status: Acute (2) Triple vessel coronary artery disease Status: Acute (3) Diabetes Status: Acute (4) History of deep vein thrombosis Status: Acute (5) History of pulmonary embolus (PE) Status: Acute (6) Hyperlipidemia Status: Acute (7) Thrombocytopenia Status: Acute Plan: We will add Lipitor 80 mg 1 tablet daily to the patient's medication regime. Monitor daily CBCs. Tentatively the patient is scheduled to undergo coronary artery bypass grafting surgery on Tuesday. DNP note has been reviewed, I agree with a documented findings and plan of care. Patient was seen and examined.
[2016-08-10] MEDS: prednisoLONE ACETATE 1% OPHTH DROPS 1 ML BTL LEFT EYE SCH (16:08)
[2016-08-10] MEDS: HEPARIN SODIUM,PORCINE/D5W PMX 25,000 UNIT in DEXTROSE/WATER 1 500ML.BAG IV SCH (16:14)
[2016-08-10 16:22] LABS: Glucose,Whole Blood 181 mg/dL (75-99)
[2016-08-10 21:07] LABS: Glucose,Whole Blood 188 mg/dL (75-99)
[2016-08-10] MEDS: LATANOPROST 0.005% OPHTH DROPS 2.5 ML BTL BOTH EYES SCH (21:08)
--- NOTE | 2016-08-10 22:18 | CONS ---
DATE OF CONSULTATION: 08/10/2016 REASON FOR CONSULTATION: Medical management requested by Dr. Tinsley. CONSULTATION: This is a very pleasant 80-year-old patient of Dr. Parks. His chronic stable medical conditions include diabetes, DVT and PE, for which he is on Coumadin, hyperlipidemia, osteoarthritis, enlarged prostate. Patient has been having episodes of increasing shortness of breath and some chest pressure on exertion. Patient did undergo cardiac catheterization, found to have severe triple-vessel disease. Cardiothoracic Surgery was consulted. Occasional dizziness. REVIEW OF SYSTEMS: CONSTITUTIONAL: Tired. HEENT: None. RESPIRATORY: As above. CARDIOVASCULAR: As above. GASTROINTESTINAL: None. GENITOURINARY: None. MUSCULOSKELETAL: Aches and pains in the joints. DERMATOLOGIC: None. HEMATOLOGIC: None. LYMPHATICS: None. PSYCHIATRY: None. NEUROLOGICAL: None. PAST HISTORY: 1. Diabetes. 2. DVT. 3. Hyperlipidemia. 4. Osteoarthritis. 5. Enlarged prostate. 6. PE. PAST SURGICAL HISTORY: Corneal transplant. SOCIAL HISTORY: Lives by himself. Does not smoke. FAMILY HISTORY: Noncontributory. HOME MEDICATIONS: 1. Prednisone Forte 1% one drop to the left eye on Mondays and . 2. Metformin 500 mg p.o. t.i.d. 3. Glucotrol 10 mg p.o. daily. 4. Coumadin 10 mg p.o. daily. 5. Pravachol 10 mg p.o. daily. 6. Toprol XL 25 mg daily. 7. Xalatan 0.005% one drop to both eyes at bedtime. 8. Amaryl 4 mg p.o. b.i.d. 9. Trusopt 2% one drop to the left eye b.i.d. ALLERGIES: 1. PENICILLIN. 2. CODEINE. On examination, temperature 97.7, pulse 56, respiration 16, blood pressure 118/67, pulse ox 96% on room air. GENERAL APPEARANCE: Well built; BMI of 34.7. Sitting up, comfortable. EYES: Pupils equal. Conjunctivae normal. HEENT: External appearance of nose and ears normal. Oral cavity normal. NECK: JVD not raised. Mass not palpable. RESPIRATORY: Effort normal. LUNGS: Fair air entry. CARDIOVASCULAR: First and second sounds normal. No edema. ABDOMEN: Soft, nontender. Liver and spleen not palpable. LYMPHATIC: No lymph node palpable in neck or axillae. PSYCHIATRY: Alert and oriented x3. Mood and affect normal. NEUROLOGICAL: Pupils equal. Cranial nerves grossly intact. Power and sensation grossly intact. MUSCULOSKELETAL: Evidence of osteoarthritis in multiple joints bilaterally. INVESTIGATIONS: White count 3.6, hemoglobin 13.5. INR 1.3. Potassium 3.9. BUN and creatinine are normal. Triglycerides 314. LDL 36. Patient's 2-D echocardiogram shows EF of 50% to 55%. ASSESSMENT: 1. Coronary artery disease defined as triple-vessel disease as per cardiac catheterization. This was an elective procedure. 2. Diabetes mellitus, type 2, on oral hypoglycemic. 3. Chronic deep venous thrombosis/pulmonary embolism, on Coumadin. 4. Hyperlipidemia. 5. 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 6. Benign prostatic hypertrophy. 7. Intravenous heparin monitoring for therapeutic level. PLAN: Home medications are resumed. Coumadin has already been held off. Patient is on IV heparin. Cardiothoracic is looking at a bypass. Care was discussed with the patient. Thank you, Dr. Tinsley.
[2016-08-11] MEDS: HEPARIN SODIUM,PORCINE/D5W PMX 25,000 UNIT in DEXTROSE/WATER 1 500ML.BAG IV SCH ×2 (02:55→22:17)
[2016-08-11 06:22] LABS: Glucose,Whole Blood 171 mg/dL (75-99)
[2016-08-11 06:57] LABS: Basophils % (A) 1 %; CHCM 33.7; Eosinophils # (A) 0.1 k/uL (0-0.7); Eosinophils % (A) 2 %; HDW 2.48; HGB 13.5 gm/dL (13.0-17.5); Luc # (Auto) 0.04; Luc % (Auto) 1; Lymphocytes # (A) 1.6 k/uL (1.0-4.8); Lymphocytes % (A) 39 %; MCH 32.3 pg (25.0-35.0); MCHC 32.8 g/dL (31.0-37.0); MCV 98.4 fL (80.0-100.0); Mean Platelet Volume 9.2; Monocytes # (A) 0.2 k/uL (0-1.0); Monocytes % (A) 5 %; Neutrophils # (A) 2.2 k/uL (1.3-7.7); Neutrophils % (A) 53 %; RBC 4.17 m/uL (4.30-5.90); RDW 13.8 % (11.5-15.5); WBC 4.2 k/uL (3.8-10.6); WBC (Perox) 4.09
[2016-08-11 07:02] LABS: INR 1.3 (<1.1); Partial Thromboplastin Time 60.6 sec (22.0-30.0); Prothrombin Time 12.7 sec (9.0-12.0)
[2016-08-11 07:40] LABS: Anion Gap 9 mmol/L; Blood Urea Nitrogen 16 mg/dL (9-20); Calcium 8.9 mg/dL (8.4-10.2); Carbon Dioxide 21 mmol/L (22-30); Chloride 111 mmol/L (98-107); Glucose 172 mg/dL (74-99); Non-African American GFR(MDRD) >60 (>60 ml/min/1.73 sqM); Potassium 4.2 mmol/L (3.5-5.1); Sodium 141 mmol/L (137-145)
[2016-08-11] MEDS: MUPIROCIN 2% OINT 22 GM TUBE TOPICAL SCH ×2 (09:17→20:28)
[2016-08-11] MEDS: GLIMEPIRIDE 4 MG TAB PO SCH ×2 (09:17→20:27)
[2016-08-11] MEDS: DORZOLAMIDE HCL 2% DROPS 10 ML BTL LEFT EYE SCH (09:17)
[2016-08-11] MEDS: ATORVASTATIN 80 MG TAB PO SCH (09:17)
[2016-08-11] MEDS: glipiZIDE 10 MG TAB PO SCH (09:18)
[2016-08-11] MEDS: METOPROLOL SUCCINATE (ER) 25 MG TAB.ER.24H PO SCH (09:18)
[2016-08-11 12:13] LABS: Glucose,Whole Blood 168 mg/dL (75-99)
--- NOTE | 2016-08-11 12:47 | P.CONS ---
History of Present Illness - Reason for Consult Consult date: 08/11/16 thrombocytopenia Requesting physician: Juliana Albright - Chief Complaint chest pain, GREG - History of Present Illness Mr. Michele is a very pleasant 80 y.o. male who is requiring CABG. He was found to have thrombocytopenia on pre op labs, he denies any previous knowledge of a platelet or blood problem, no recent illnesses, bleeding of any kind, spontaneous bruising, ETOH abuse or liver disease. Pt is no coumadin for afib, he has monthly INR with his PCP Dr. Hdz. Review of Systems All systems: negative Constitutional: Reports as per HPI Past Medical History Past Medical History: Diabetes Mellitus, Deep Vein Thrombosis (DVT), Eye Disorder, Hyperlipidemia, Osteoarthritis (OA), Prostate Disorder, Pulmonary Embolus (PE) Additional Past Medical History / Comment(s): Three-vessel coronary artery disease and details discussed above History of Any Multi-Drug Resistant Organisms: None Reported Additional Past Surgical History / Comment(s): corneal transplant Past Anesthesia/Blood Transfusion Reactions: No Reported Reaction Past Psychological History: No Psychological Hx Reported Smoking Status: Former smoker Past Alcohol Use History: None Reported Additional Past Alcohol Use History / Comment(s): smoked a little as teen Past Drug Use History: None Reported - Past Family History Mother Family Medical History: No Reported History Medications and Allergies Home Medications Medication Instructions Recorded Confirmed Type Dorzolamide 2% [Trusopt 2%] 1 drops LEFT EYE BID 08/06/16 08/09/16 History Glimepiride [Amaryl] 4 mg PO BID 08/06/16 08/09/16 History Metoprolol Succinate [Toprol XL] 25 mg PO DAILY 08/06/16 08/09/16 History Pravastatin Sodium [Pravachol] 10 mg PO DAILY 08/06/16 08/09/16 History Warfarin [Coumadin] 10 mg PO DAILY 08/06/16 08/09/16 History glipiZIDE [Glucotrol] 10 mg PO DAILY 08/06/16 08/09/16 History Latanoprost [Xalatan 0.005%] 1 drop BOTH EYES HS 08/09/16 08/09/16 History metFORMIN HCL [Glucophage] 500 mg PO TID-W/MEALS 08/09/16 08/09/16 History prednisoLONE ACETATE 1% OPHTH 1 drops LEFT EYE MOTH 08/09/16 08/09/16 History [Pred Forte 1%] Allergies Allergy/AdvReac Type Severity Reaction Status Date / Time Penicillins Allergy Swelling Verified 08/09/16 19:26 codeine AdvReac Agitation Verified 08/09/16 19:26 Physical Exam Vitals: Vital Signs Temp Pulse Pulse Resp BP Pulse Ox 08/11/16 08:00 97.9 F 68 18 108/69 94 L 08/11/16 03:00 97.5 F L 56 L 18 132/69 95 08/10/16 23:15 97.5 F L 58 L 18 123/67 96 08/10/16 20:50 97.1 F L 59 L 18 125/64 95 08/10/16 16:00 97.7 F 60 64 16 129/70 96 Intake and Output 08/10/16 08/11/16 08/11/16 22:59 06:59 14:59 Intake Total 447.904 359.893 240 Balance 447.904 359.893 240 Intake: Intake, IV Titration 207.904 359.893 Amount Heparin Sodium,Porcine/ 207.904 359.893 D5w Pmx 25,000 unit In Dextrose/Water 1 500ml. bag @ 8.9 UNITS/KG/HR 19. 86 mls/hr IV .Q24H [facility] Rx #:[id number] Oral 240 240 Other: Voiding Method Toilet Toilet Toilet # Voids 0 2 Weight 110.5 kg - Constitutional General appearance: average body habitus, no acute distress, obese - EENT Eyes: anicteric sclerae, PERRLA, normal appearance ENT: hearing grossly normal, normal oropharynx - Neck Neck: no lymphadenopathy - Respiratory Respiratory: bilateral: CTA - Cardiovascular Heart sounds: normal: S1, S2 leg Peripheral Edema: bilateral: None - Gastrointestinal General gastrointestinal: no absent bowel sounds, no decreased bowel sounds, no distended, no hepatomegaly, no hyperactive bowel sounds, normal bowel sounds, no organomegaly, no rigid, no scaphoid, soft, no splenomegaly, no tenderness, no umbilical hernia, no ventral hernia - Integumentary Integumentary: normal - Neurologic Neurologic: CNII-XII intact - Musculoskeletal Musculoskeletal: strength equal bilaterally - Psychiatric Psychiatric: A&O x's 3, appropriate affect, intact judgment & insight Results CBC & Chem 7: 08/11/16 06:20 08/11/16 06:20 Labs: Abnormal Lab Results - Last 24 Hours (Table) 08/10/16 08/10/16 08/10/16 Range/Units 14:52 16:20 20:55 RBC (4.30-5.90) m/uL Plt Count (150-450) k/uL PT (9.0-12.0) sec APTT 45.0 H (22.0-30.0) sec Chloride (98-107) mmol/L Carbon Dioxide (22-30) mmol/L Glucose (74-99) mg/dL POC Glucose (mg/dL) 181 H 188 H (75-99) mg/dL 08/10/16 08/11/16 08/11/16 Range/Units 22:24 06:15 06:20 RBC 4.17 L (4.30-5.90) m/uL Plt Count 66 L (150-450) k/uL PT (9.0-12.0) sec APTT 66.3 H (22.0-30.0) sec Chloride (98-107) mmol/L Carbon Dioxide (22-30) mmol/L Glucose (74-99) mg/dL POC Glucose (mg/dL) 171 H (75-99) mg/dL 08/11/16 08/11/16 08/11/16 Range/Units 06:20 06:20 11:38 RBC (4.30-5.90) m/uL Plt Count (150-450) k/uL PT 12.7 H (9.0-12.0) sec APTT 60.6 H (22.0-30.0) sec Chloride 111 H (98-107) mmol/L Carbon Dioxide 21 L (22-30) mmol/L Glucose 172 H (74-99) mg/dL POC Glucose (mg/dL) 168 H (75-99) mg/dL Microbiology - Last 24 Hours (Table) 08/09/16 22:10 Nasal Screen MRSA/MSSA ([facility]) - Final Nasal Swab 08/09/16 22:10 Urine Culture - Final Urine,Voided Assessment and Plan (1) Thrombocytopenia Narrative/Plan: Dr. Hopper reviewed with the pt and Dr. Lance that pt is ok from a Hematology standpoint to have CABG as long as platelets remain >50,000. Having a unit platelets on hand post operatively to keep above 50,000 in case of a drop due to extracorporeal circulation. It was discussed that pt will not require anticoagulation post operatively unless arrhythmia so, keep platelets above 50, 000 if anticoagulation needed. We do not have any prior CBC results to review and pt denies a history of having low platelet counts so it is unclear how long this has been present. US has been ordered of liver and spleen to evaluate for any liver disease or spleenomegaly. If thrombocytopenia persistent it can be worked up outpatient. Status: Acute
--- NOTE | 2016-08-11 13:54 | PN ---
DATE OF SERVICE: 08/11/2016 REASON FOR ADMISSION: Increasing shortness of breath, chest pressure/medical management. INTERVAL HISTORY: This is an 80-year-old gentleman who presented to the emergency department after having episodes of increasing shortness of breath and chest pressure on exertion. Patient underwent a heart catheterization, found to have triple-vessel disease. Patient has a planned open heart surgery on Tuesday08/13/2016. Today patient is lying in bed sleeping, with no acute distress noted. Patient has no complaints of chest pain. No shortness of breath, breathing eased. Review of systems done for constitutional, cardiovascular, GI, pulmonary with relevant findings as above. CURRENT MEDICATIONS: 1. Lipitor. 2. Glucotrol. 3. Heparin. 4. Metoprolol. PHYSICAL EXAMINATION: VITAL SIGNS: Temperature 97.9, pulse 68, respiratory rate 18, blood pressure 108/69, oxygen saturation 94% on room air. GENERAL APPEARANCE: Patient is lying in bed with no acute distress noted or voiced. EYES: Pupils equal. Conjunctivae normal. NECK: JVD not raised. Mass not palpable. LUNGS: Diminished to the bases bilaterally. Clear to auscultation in upper lobes. RESPIRATORY: Effort normal, unlabored. CARDIOVASCULAR: First and second sounds noted. No edema. ABDOMEN: Soft, nontender. Liver and spleen not palpable. PSYCHIATRY: Alert and oriented x3. Mood and affect normal. INVESTIGATIONS: White blood cell count 4.2, hemoglobin 13.5, platelet count 66, INR 1.3. Sodium 141, potassium 4.2, BUN 16, creatinine 1.02, blood glucose 172. Pulmonology consult for open heart surgery evaluation. ASSESSMENT: 1. Coronary artery disease to find his triple vessel disease per cardiac catheterization. This is an elective procedure. 2. Diabetes mellitus type 2 on oral hypoglycemics. 3. Chronic deep vein thrombosis, pulmonary embolism on Coumadin. 4. Hyperlipidemia. 5. Primary osteoarthritis of multiple joints bilaterally. 6. Benign prostatic hypertrophy. 7. Intravenous heparin monitoring for therapeutic level. PLAN: Patient is scheduled for cardiac bypass surgery on 08/13/2016. Patient has been seen by Pulmonology. Lower extremity ultrasound has been completed. Hematology/Oncology consulted for thrombocytopenia. Will continue current plan of care and treatment. Patient was seen and examined by Nurse Practitioner Fiorella Kapadia and all elements of the case discussed with attending, Dr. Long. I performed a history and physical examination of this patient and discussed the same with the dictator. I agree with the dictator's note. Any additional findings/opinions, etc. will be noted.
--- NOTE | 2016-08-11 13:58 | P.PN ---
<Juliana Albright - Last Filed: 08/11/16 13:54> Subjective Principal diagnosis: Multivessel coronary artery disease, preop coronary artery bypass grafting surgery. Patient currently sitting up in bed in no apparent distress. Feels ready for surgery. Objective - Vital Signs Vital signs: Vital Signs Temp 97.9 F 08/11/16 08:00 Pulse 68 08/11/16 08:00 Resp 18 08/11/16 08:00 BP 108/69 08/11/16 08:00 Pulse Ox 94 L 08/11/16 08:00 Intake & Output 08/10/16 08/11/16 08/11/16 18:59 06:59 18:59 Intake Total 927.904 359.893 480 Output Total 400 Balance 527.904 359.893 480 Weight 110.5 kg Intake: Intake, IV Titration 207.904 359.893 Amount Heparin Sodium,Porcine/ 207.904 359.893 D5w Pmx 25,000 unit In Dextrose/Water 1 500ml. bag @ 8.9 UNITS/KG/HR 19. 86 mls/hr IV .Q24H [facility] Rx #:[id number] Oral 720 480 Output: Urine 400 Other: Voiding Method Toilet Toilet Toilet # Voids 1 2 1 # Bowel Movements 0 - Constitutional General appearance: Present: cooperative, no acute distress, obese - Respiratory Details: Lungs sounds diminished bilaterally. Respirations even, nonlabored. Currently on room air with oxygen saturation 98%. - Cardiovascular Details: S1, S2 present. Regular rate and rhythm, normal sinus rhythm on telemetry. - Gastrointestinal Gastrointestinal Comment(s): Abdomen soft, nontender, nondistended. Active bowel sounds 4 quadrants. Tolerating diet. - Genitourinary Genitourinary Comment(s): Continues to void clear, yellow urine. - Musculoskeletal Musculoskeletal: Present: gait normal, strength equal bilaterally - Psychiatric Psychiatric: Present: A&O x's 3, appropriate affect, intact judgment & insight - Allied health notes Allied health notes reviewed: nursing - Labs CBC & Chem 7: 08/11/16 06:20 08/11/16 06:20 Labs: Abnormal Lab Results - Last 24 Hours (Table) 08/10/16 08/10/16 08/10/16 Range/Units 14:52 16:20 20:55 RBC (4.30-5.90) m/uL Plt Count (150-450) k/uL PT (9.0-12.0) sec APTT 45.0 H (22.0-30.0) sec Chloride (98-107) mmol/L Carbon Dioxide (22-30) mmol/L Glucose (74-99) mg/dL POC Glucose (mg/dL) 181 H 188 H (75-99) mg/dL 08/10/16 08/11/16 08/11/16 Range/Units 22:24 06:15 06:20 RBC 4.17 L (4.30-5.90) m/uL Plt Count 66 L (150-450) k/uL PT (9.0-12.0) sec APTT 66.3 H (22.0-30.0) sec Chloride (98-107) mmol/L Carbon Dioxide (22-30) mmol/L Glucose (74-99) mg/dL POC Glucose (mg/dL) 171 H (75-99) mg/dL 08/11/16 08/11/16 08/11/16 Range/Units 06:20 06:20 11:38 RBC (4.30-5.90) m/uL Plt Count (150-450) k/uL PT 12.7 H (9.0-12.0) sec APTT 60.6 H (22.0-30.0) sec Chloride 111 H (98-107) mmol/L Carbon Dioxide 21 L (22-30) mmol/L Glucose 172 H (74-99) mg/dL POC Glucose (mg/dL) 168 H (75-99) mg/dL Microbiology - Last 24 Hours (Table) 08/09/16 22:10 Nasal Screen MRSA/MSSA ([facility]) - Final Nasal Swab 08/09/16 22:10 Urine Culture - Final Urine,Voided Assessment and Plan (1) Diabetes Status: Acute (2) Hyperlipidemia Status: Acute (3) History of pulmonary embolus (PE) Status: Acute (4) History of deep vein thrombosis Status: Acute (5) Thrombocytopenia Status: Acute (6) Coronary artery disease Status: Acute Plan: 1. Continue beta abran, statin, heparin drip. 2. Preoperative teaching reinforced. 3. Preoperative testing results reviewed. 4. Hematology consulted secondary to thrombocytopenia. Per the recommendation 67 patient into surgery as long as platelet count is greater than 50,000. We will preemptively order additional platelets for surgery. 5. Anticipate coronary artery bypass graft surgery 08/13/2016. 6. Encourage increased activity, ambulate in the hallway. 7. Encourage incentive spirometry practice preoperatively. 8. GI/DVT prophylaxis. 9. More recommendations patient progresses. Time with Patient: Greater than 30 <Ramin Traore - Last Filed: 08/13/16 16:22> Objective - Vital Signs Vital signs: Vital Signs Temp 98.0 F 08/13/16 06:25 Pulse 83 08/13/16 16:15 Resp 16 08/13/16 06:25 BP 133/64 08/13/16 06:25 Pulse Ox 94 L 08/13/16 06:25 Intake & Output 08/12/16 08/13/16 08/13/16 18:59 06:59 18:59 Intake Total 908 340 952 Output Total 2100 Balance 908 340 -1148 Weight 109.5 kg 109.1 kg Intake: IV 160 340 952 0.9 160 340 Intake, IV Titration 268 Amount Heparin Sodium,Porcine 5, 268 000 unit In Sodium Chloride 0.9% 500 ml @ As Directed IV ONCE PRN Rx# :[id number] Oral 480 Output: Urine 600 Estimated Blood Loss 1500 Other: Voiding Method Toilet Toilet # Voids 1 1 - Labs CBC & Chem 7: 08/13/16 15:00 08/13/16 15:00 Labs: Abnormal Lab Results - Last 24 Hours (Table) 08/12/16 08/12/16 08/12/16 Range/Units 05:59 08:44 16:50 RBC (4.30-5.90) m/uL Hgb (13.0-17.5) gm/dL Hct (39.0-53.0) % Plt Count (150-450) k/uL Lymphocytes # (1.0-4.8) k/uL PT (9.0-12.0) sec Chloride (98-107) mmol/L Carbon Dioxide (22-30) mmol/L Glucose (74-99) mg/dL POC Glucose (mg/dL) 149 H (75-99) mg/dL Calcium (8.4-10.2) mg/dL Magnesium (1.6-2.3) mg/dL Total Bilirubin (0.2-1.3) mg/dL Total Protein (6.3-8.2) g/dL Albumin (3.5-5.0) g/dL RBC Folate 814 H (280 - 791) ng/mL Free [place] LC, Quant 2.06 H (0.33 - 1.94) mg/dL Crossmatch See Detail 08/12/16 08/13/16 08/13/16 Range/Units 20:43 05:40 08:44 RBC (4.30-5.90) m/uL Hgb (13.0-17.5) gm/dL Hct (39.0-53.0) % Plt Count (150-450) k/uL Lymphocytes # (1.0-4.8) k/uL PT (9.0-12.0) sec Chloride (98-107) mmol/L Carbon Dioxide (22-30) mmol/L Glucose (74-99) mg/dL POC Glucose (mg/dL) 217 H 175 H 179 H (75-99) mg/dL Calcium (8.4-10.2) mg/dL Magnesium (1.6-2.3) mg/dL Total Bilirubin (0.2-1.3) mg/dL Total Protein (6.3-8.2) g/dL Albumin (3.5-5.0) g/dL RBC Folate (280 - 791) ng/mL Free [place] LC, Quant (0.33 - 1.94) mg/dL Crossmatch 08/13/16 08/13/16 08/13/16 Range/Units 09:25 10:42 11:32 RBC (4.30-5.90) m/uL Hgb (13.0-17.5) gm/dL Hct (39.0-53.0) % Plt Count (150-450) k/uL Lymphocytes # (1.0-4.8) k/uL PT (9.0-12.0) sec Chloride (98-107) mmol/L Carbon Dioxide (22-30) mmol/L Glucose (74-99) mg/dL POC Glucose (mg/dL) 208 H 207 H 204 H (75-99) mg/dL Calcium (8.4-10.2) mg/dL Magnesium (1.6-2.3) mg/dL Total Bilirubin (0.2-1.3) mg/dL Total Protein (6.3-8.2) g/dL Albumin (3.5-5.0) g/dL RBC Folate (280 - 791) ng/mL Free [place] LC, Quant (0.33 - 1.94) mg/dL Crossmatch 08/13/16 08/13/16 08/13/16 Range/Units 12:01 12:38 13:11 RBC (4.30-5.90) m/uL Hgb (13.0-17.5) gm/dL Hct (39.0-53.0) % Plt Count (150-450) k/uL Lymphocytes # (1.0-4.8) k/uL PT (9.0-12.0) sec Chloride (98-107) mmol/L Carbon Dioxide (22-30) mmol/L Glucose (74-99) mg/dL POC Glucose (mg/dL) 264 H 253 H 263 H (75-99) mg/dL Calcium (8.4-10.2) mg/dL Magnesium (1.6-2.3) mg/dL Total Bilirubin (0.2-1.3) mg/dL Total Protein (6.3-8.2) g/dL Albumin (3.5-5.0) g/dL RBC Folate (280 - 791) ng/mL Free [place] LC, Quant (0.33 - 1.94) mg/dL Crossmatch 08/13/16 08/13/16 08/13/16 Range/Units 14:06 15:00 15:00 RBC (4.30-5.90) m/uL Hgb (13.0-17.5) gm/dL Hct (39.0-53.0) % Plt Count (150-450) k/uL Lymphocytes # (1.0-4.8) k/uL PT 14.5 H (9.0-12.0) sec Chloride 111 H (98-107) mmol/L Carbon Dioxide 21 L (22-30) mmol/L Glucose 171 H (74-99) mg/dL POC Glucose (mg/dL) 209 H (75-99) mg/dL Calcium 8.3 L (8.4-10.2) mg/dL Magnesium 2.5 H (1.6-2.3) mg/dL Total Bilirubin 1.5 H (0.2-1.3) mg/dL Total Protein 4.4 L (6.3-8.2) g/dL Albumin 2.5 L (3.5-5.0) g/dL RBC Folate (280 - 791) ng/mL Free [place] LC, Quant (0.33 - 1.94) mg/dL Crossmatch 08/13/16 08/13/16 Range/Units 15:00 15:04 RBC 3.21 L (4.30-5.90) m/uL Hgb 10.9 L (13.0-17.5) gm/dL Hct 31.4 L (39.0-53.0) % Plt Count 42 L* (150-450) k/uL Lymphocytes # 0.6 L (1.0-4.8) k/uL PT (9.0-12.0) sec Chloride (98-107) mmol/L Carbon Dioxide (22-30) mmol/L Glucose (74-99) mg/dL POC Glucose (mg/dL) 177 H (75-99) mg/dL Calcium (8.4-10.2) mg/dL Magnesium (1.6-2.3) mg/dL Total Bilirubin (0.2-1.3) mg/dL Total Protein (6.3-8.2) g/dL Albumin (3.5-5.0) g/dL RBC Folate (280 - 791) ng/mL Free [place] LC, Quant (0.33 - 1.94) mg/dL Crossmatch Assessment and Plan (1) Coronary artery disease Status: Acute Plan: The patient was seen and examined. I agree with the above assessment and plan. Overall he has been stable. He denies any new complaints or significant chest pain. Hematology was consulted secondary to thrombocytopenia. We are awaiting their recommendations. His surgery has been tentatively scheduled for August 13.
--- NOTE | 2016-08-11 14:51 | P.PN ---
Subjective Principal diagnosis: Shortness of breath and chest pain This is an 80-year-old gentleman referred to Dr. Jacques by Dr. Parks because of symptoms of shortness of breath and chest discomfort. He underwent a dobutamine stress echocardiographic study which revealed anterior and inferior ischemia hence the patient was brought here to undergo cardiac catheterization which was performed yesterday. Cardiac catheterization revealed totally occluded right coronary artery in the midportion, the left main has a critical lesion distally in the range of 80-90%. Lesion involving the ostial left circumflex and ostial LAD, critical disease involving the first obtuse marginal branch of the left circumflex, critical disease involving the proximal LAD. Patient was seen by cardiothoracic surgery and is scheduled to undergo coronary artery bypass grafting surgery on Tuesday of this week. He was seen and examined this morning, denies any difficulty breathing, no shortness of breath. Blood pressure 130/60 with a heart rate in the 60s. Hemoglobin 13.5 , platelet count 66. Patient was seen in consultation by Dr. Hopper who cleared the patient for surgery as long as the platelet count is above 50. Objective - Vital Signs Vital signs: Vital Signs Temp 97.1 F L 08/11/16 12:00 Pulse 55 L 08/11/16 12:00 Resp 18 08/11/16 12:00 BP 130/59 08/11/16 12:00 Pulse Ox 94 L 08/11/16 12:00 Intake & Output 08/10/16 08/11/16 08/11/16 18:59 06:59 18:59 Intake Total 927.904 359.893 480 Output Total 400 Balance 527.904 359.893 480 Weight 110.5 kg Intake: Intake, IV Titration 207.904 359.893 Amount Heparin Sodium,Porcine/ 207.904 359.893 D5w Pmx 25,000 unit In Dextrose/Water 1 500ml. bag @ 8.9 UNITS/KG/HR 19. 86 mls/hr IV .Q24H [facility] Rx #:[id number] Oral 720 480 Output: Urine 400 Other: Voiding Method Toilet Toilet Toilet # Voids 1 2 1 # Bowel Movements 0 - Exam PHYSICAL EXAMINATION: HEENT: Head is atraumatic, normocephalic. Pupils equal, round. Neck is supple. There is no elevated jugular venous pressure. HEART EXAMINATION: Heart S1, S2 normal. No murmur or gallop heard. CHEST EXAMINATION: Lungs are clear to auscultation and precussion. No chest wall tenderness is noted on palpation or with deep breathing. ABDOMEN: Soft, nontender. Bowel sounds are heard. No organomegaly noted. Right radial site clean and dry, good distal pulse. EXTREMITIES: 2+ peripheral pulses with no evidence of peripheral edema and no calf tenderness noted. NEUROLOGIC patient is awake, alert and oriented -3. . - Labs CBC & Chem 7: 08/11/16 06:20 08/11/16 06:20 Labs: Abnormal Lab Results - Last 24 Hours (Table) 08/10/16 08/10/16 08/10/16 Range/Units 14:52 16:20 20:55 RBC (4.30-5.90) m/uL Plt Count (150-450) k/uL PT (9.0-12.0) sec APTT 45.0 H (22.0-30.0) sec Chloride (98-107) mmol/L Carbon Dioxide (22-30) mmol/L Glucose (74-99) mg/dL POC Glucose (mg/dL) 181 H 188 H (75-99) mg/dL 08/10/16 08/11/16 08/11/16 Range/Units 22:24 06:15 06:20 RBC 4.17 L (4.30-5.90) m/uL Plt Count 66 L (150-450) k/uL PT (9.0-12.0) sec APTT 66.3 H (22.0-30.0) sec Chloride (98-107) mmol/L Carbon Dioxide (22-30) mmol/L Glucose (74-99) mg/dL POC Glucose (mg/dL) 171 H (75-99) mg/dL 08/11/16 08/11/16 08/11/16 Range/Units 06:20 06:20 11:38 RBC (4.30-5.90) m/uL Plt Count (150-450) k/uL PT 12.7 H (9.0-12.0) sec APTT 60.6 H (22.0-30.0) sec Chloride 111 H (98-107) mmol/L Carbon Dioxide 21 L (22-30) mmol/L Glucose 172 H (74-99) mg/dL POC Glucose (mg/dL) 168 H (75-99) mg/dL Microbiology - Last 24 Hours (Table) 08/09/16 22:10 Nasal Screen MRSA/MSSA ([facility]) - Final Nasal Swab 08/09/16 22:10 Urine Culture - Final Urine,Voided Assessment and Plan (1) S/P cardiac cath Status: Acute (2) Triple vessel coronary artery disease Status: Acute (3) Diabetes Status: Acute (4) History of deep vein thrombosis Status: Acute (5) History of pulmonary embolus (PE) Status: Acute (6) Hyperlipidemia Status: Acute (7) Thrombocytopenia Status: Acute Plan: We will add sinew current medications. Patient will be scheduled for coronary artery bypass grafting surgery on Tuesday. DNP note has been reviewed, I agree with a documented findings and plan of care. Patient was seen and examined.
--- NOTE | 2016-08-11 16:35 | P.PN ---
Subjective 80-year-old male patient, complaining of exertional dyspnea over the past several months. The patient denied having any chest pain. 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 The patient was found to have occluded right coronary artery with collaterals filling from the left. The patient was found to have critical disease involving the left main coronary artery and critical disease involving diffuse marginal branch of circumflex and proximal LAD. Based on this, coronary artery bypass surgery was recommended. The patient was seen by cardiothoracic surgery and the tentative plan to undergo surgery on this patient is on Tuesday. The preoperative echocardiogram showed a preserved LV function with an ejection fraction of 50-55%. No evidence of any pulmonary hypertension. No evidence of any valvular abnormalities. There is evidence of hypertensive heart disease with concentric left ventricular hypertrophy. Chest x-ray shows no acute cardio pulmonary process. He has history of pulmonary embolism and DVT and the patient has been maintained on anticoagulation on outpatient basis with warfarin. On today's evaluation of 08/11/2016 the patient is stable. The patient has no specific complaints. The patient is using his incentive spirometer. The patient was found to have chronic thrombocytopenia and for that reason a hematology consultation was obtained. History of any chest pain. He remains on IV heparin. Awaiting surgery on Tuesday. A bedside spirometry is still to be done. Objective - Vital Signs Vital signs: Vital Signs Temp 97.1 F L 08/11/16 12:00 Pulse 55 L 08/11/16 12:00 Resp 18 08/11/16 12:00 BP 130/59 08/11/16 12:00 Pulse Ox 94 L 08/11/16 12:00 Intake & Output 08/10/16 08/11/16 08/11/16 18:59 06:59 18:59 Intake Total 927.904 359.893 480 Output Total 400 Balance 527.904 359.893 480 Weight 110.5 kg Intake: Intake, IV Titration 207.904 359.893 Amount Heparin Sodium,Porcine/ 207.904 359.893 D5w Pmx 25,000 unit In Dextrose/Water 1 500ml. bag @ 8.9 UNITS/KG/HR 19. 86 mls/hr IV .Q24H [facility] Rx #:[id number] Oral 720 480 Output: Urine 400 Other: Voiding Method Toilet Toilet Toilet # Voids 1 2 1 # Bowel Movements 0 - Exam The patient appeared well nourished and normally developed. Vital signs as documented. Head exam is unremarkable. No scleral icterus or corneal arcus noted. Neck is without jugular venous distension, thyromegaly, or carotid bruits. Carotid upstrokes are brisk bilaterally. Lungs are clear to auscultation and percussion. Cardiac exam reveals the PMI to be normally sized and situated. Rhythm is regular. First and second heart sounds normal. No murmurs, rubs or gallops. Abdominal exam reveals normal bowel sounds, no masses , no organomegaly and no aortic enlargement. Extremities are nonedematous and both femoral and pedal pulses are normal. - Labs CBC & Chem 7: 08/11/16 06:20 08/11/16 06:20 Labs: Abnormal Lab Results - Last 24 Hours (Table) 08/10/16 08/10/16 08/11/16 Range/Units 20:55 22:24 06:15 RBC (4.30-5.90) m/uL Plt Count (150-450) k/uL PT (9.0-12.0) sec APTT 66.3 H (22.0-30.0) sec Chloride (98-107) mmol/L Carbon Dioxide (22-30) mmol/L Glucose (74-99) mg/dL POC Glucose (mg/dL) 188 H 171 H (75-99) mg/dL 08/11/16 08/11/16 08/11/16 Range/Units 06:20 06:20 06:20 RBC 4.17 L (4.30-5.90) m/uL Plt Count 66 L (150-450) k/uL PT 12.7 H (9.0-12.0) sec APTT 60.6 H (22.0-30.0) sec Chloride 111 H (98-107) mmol/L Carbon Dioxide 21 L (22-30) mmol/L Glucose 172 H (74-99) mg/dL POC Glucose (mg/dL) (75-99) mg/dL 08/11/16 Range/Units 11:38 RBC (4.30-5.90) m/uL Plt Count (150-450) k/uL PT (9.0-12.0) sec APTT (22.0-30.0) sec Chloride (98-107) mmol/L Carbon Dioxide (22-30) mmol/L Glucose (74-99) mg/dL POC Glucose (mg/dL) 168 H (75-99) mg/dL Microbiology - Last 24 Hours (Table) 08/09/16 22:10 Nasal Screen MRSA/MSSA ([facility]) - Final Nasal Swab 08/09/16 22:10 Urine Culture - Final Urine,Voided Assessment and Plan Plan: Assessment 1 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 The patient will be undergoing coronary bypass surgery. LV function is preserved with an ejection fraction of 55% 2 diabetes mellitus maintained on oral hypoglycemics 3 hypertension 4 hyperlipidemia 5 previous history of DVT and pulmonary embolism , maintained on warfarin outpatient basis 6 thrombocytopenia Plan Continue using IS. Awaiting bedside spirometry. Pathology consultation regarding the chronic, cytopenia. Continue IV heparin. Monitor CBC and platelet count. We'll continue to follow.
[2016-08-11 17:08] LABS: Glucose,Whole Blood 136 mg/dL (75-99)
[2016-08-11] MEDS: LATANOPROST 0.005% OPHTH DROPS 2.5 ML BTL BOTH EYES SCH (20:28)
[2016-08-11 20:35] LABS: Glucose,Whole Blood 233 mg/dL (75-99)
--- NOTE | 2016-08-11 22:24 | PN ---
DATE OF SERVICE: 08/11/2016 ATTENDING NOTE: This patient was seen and evaluated by me earlier today. Patient is getting a coronary artery bypass this Tuesday, status post cardiac catheterization. No chest pain. Lying in bed. Current medications are reviewed and include IV heparin. On examination, temperature 97.1, pulse 85, respiration 18, blood pressure 130/59. RESPIRATORY: Effort normal. Lungs are clear. CARDIOVASCULAR: First and second sounds normal. No edema. INVESTIGATIONS: Potassium 4.2, platelets 66. ASSESSMENT: 1. Triple-vessel disease per cardiac catheterization; awaiting coronary artery bypass. 2. Thrombocytopenia, stable. 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 Continue current medication and treatment plan. Await coronary artery bypass.
[2016-08-12 05:57] LABS: Glucose,Whole Blood 172 mg/dL (75-99)
[2016-08-12 06:25] LABS: Basophils % (A) 1 %; CH 32.5; CHCM 33.3; Eosinophils # (A) 0.1 k/uL (0-0.7); Eosinophils % (A) 2 %; HCT 39.1 % (39.0-53.0); HDW 2.53; HGB 13.8 gm/dL (13.0-17.5); Luc # (Auto) 0.07; Luc % (Auto) 2; Lymphocytes # (A) 1.5 k/uL (1.0-4.8); Lymphocytes % (A) 35 %; MCH 34.8 pg (25.0-35.0); MCHC 35.4 g/dL (31.0-37.0); MCV 98.2 fL (80.0-100.0); Mean Platelet Volume 8.6; Monocytes # (A) 0.3 k/uL (0-1.0); Monocytes % (A) 6 %; Neutrophils # (A) 2.3 k/uL (1.3-7.7); Neutrophils % (A) 55 %; RBC 3.98 m/uL (4.30-5.90); RDW 13.9 % (11.5-15.5); WBC 4.2 k/uL (3.8-10.6); WBC (Perox) 4.22
[2016-08-12] MEDS ORDERED: MD COMMUNICATION TO PHARMACY 1 EACH MISC PO ONE (07:42)
[2016-08-12 07:55] LABS: Manual Review Performed
[2016-08-12] MEDS: DORZOLAMIDE HCL 2% DROPS 10 ML BTL LEFT EYE SCH ×2 (08:16→08:17)
[2016-08-12] MEDS: ATORVASTATIN 80 MG TAB PO SCH (08:31)
[2016-08-12] MEDS: MUPIROCIN 2% OINT 22 GM TUBE TOPICAL SCH ×2 (08:31→20:29)
[2016-08-12] MEDS: glipiZIDE 10 MG TAB PO SCH (08:32)
[2016-08-12] MEDS: GLIMEPIRIDE 4 MG TAB PO SCH ×2 (08:32→20:29)
[2016-08-12] MEDS: METOPROLOL SUCCINATE (ER) 25 MG TAB.ER.24H PO SCH (08:32)
[2016-08-12 10:11] LABS: Rheumatoid Factor, Qnt <9 IU/mL (<12)
[2016-08-12 10:57] LABS: Vitamin B12 278 pg/mL
[2016-08-12 11:30] LABS: Glucose,Whole Blood 130 mg/dL (75-99)
--- NOTE | 2016-08-12 14:29 | P.PN ---
Subjective Principal diagnosis: Shortness of breath and chest pain This is an 80-year-old gentleman referred to Dr. Jacques by Dr. Parks because of symptoms of shortness of breath and chest discomfort. He underwent a dobutamine stress echocardiographic study which revealed anterior and inferior ischemia hence the patient was brought here to undergo cardiac catheterization which was performed yesterday. Cardiac catheterization revealed totally occluded right coronary artery in the midportion, the left main has a critical lesion distally in the range of 80-90%. Lesion involving the ostial left circumflex and ostial LAD, critical disease involving the first obtuse marginal branch of the left circumflex, critical disease involving the proximal LAD. Patient was seen by cardiothoracic surgery and is scheduled to undergo coronary artery bypass grafting surgery on Tuesday of this week. He was seen and examined this morning, denies any difficulty breathing, no shortness of breath. Blood pressure 130/60 with a heart rate in the 60s. Hemoglobin 13.8 , platelet count 81. Scheduled for surgery tomorrow. Objective - Vital Signs Vital signs: Vital Signs Temp 97.0 F L 08/12/16 12:00 Pulse 67 08/12/16 12:00 Resp 18 08/12/16 12:00 BP 134/71 08/12/16 12:00 Pulse Ox 94 L 08/12/16 12:00 Intake & Output 08/11/16 08/12/16 08/12/16 18:59 06:59 18:59 Intake Total 980 400 240 Balance 980 400 240 Weight 109.5 kg 109.5 kg Intake: IV 160 0.9 160 Intake, IV Titration 500 Amount Heparin Sodium,Porcine/ 500 D5w Pmx 25,000 unit In Dextrose/Water 1 500ml. bag @ 8.9 UNITS/KG/HR 19. 86 mls/hr IV .Q24H [facility] Rx #:[id number] Oral 480 240 240 Other: Voiding Method Toilet Toilet Toilet # Voids 1 2 1 # Bowel Movements 0 - Exam PHYSICAL EXAMINATION: HEENT: Head is atraumatic, normocephalic. Pupils equal, round. Neck is supple. There is no elevated jugular venous pressure. HEART EXAMINATION: Heart S1, S2 normal. No murmur or gallop heard. CHEST EXAMINATION: Lungs are clear to auscultation and precussion. No chest wall tenderness is noted on palpation or with deep breathing. ABDOMEN: Soft, nontender. Bowel sounds are heard. No organomegaly noted. Right radial site clean and dry, good distal pulse. EXTREMITIES: 2+ peripheral pulses with no evidence of peripheral edema and no calf tenderness noted. NEUROLOGIC patient is awake, alert and oriented -3. . - Labs CBC & Chem 7: 08/12/16 05:59 08/11/16 06:20 Labs: Abnormal Lab Results - Last 24 Hours (Table) 08/09/16 08/11/16 08/11/16 Range/Units 15:45 17:01 20:33 RBC (4.30-5.90) m/uL Plt Count (150-450) k/uL APTT (22.0-30.0) sec POC Glucose (mg/dL) 136 H 233 H (75-99) mg/dL Crossmatch See Detail 08/12/16 08/12/16 08/12/16 Range/Units 05:55 05:59 05:59 RBC 3.98 L (4.30-5.90) m/uL Plt Count 81 L (150-450) k/uL APTT 58.3 H (22.0-30.0) sec POC Glucose (mg/dL) 172 H (75-99) mg/dL Crossmatch 08/12/16 08/12/16 Range/Units 08:44 11:28 RBC (4.30-5.90) m/uL Plt Count (150-450) k/uL APTT (22.0-30.0) sec POC Glucose (mg/dL) 130 H (75-99) mg/dL Crossmatch See Detail Microbiology - Last 24 Hours (Table) 08/09/16 22:10 Nasal Screen MRSA/MSSA ([facility]) - Final Nasal Swab 08/09/16 22:10 Urine Culture - Final Urine,Voided Assessment and Plan (1) S/P cardiac cath Status: Acute (2) Triple vessel coronary artery disease Status: Acute (3) Diabetes Status: Acute (4) History of deep vein thrombosis Status: Acute (5) History of pulmonary embolus (PE) Status: Acute (6) Hyperlipidemia Status: Acute (7) Thrombocytopenia Status: Acute Plan: We will add sinew current medications. Patient will be scheduled for coronary artery bypass grafting surgery on Tuesday. DNP note has been reviewed, I agree with a documented findings and plan of care. Patient was seen and examined.
--- NOTE | 2016-08-12 14:44 | P.PN ---
<Juliana Albright - Last Filed: 08/12/16 14:44> Subjective Principal diagnosis: Multivessel coronary artery disease, preop coronary artery bypass grafting surgery. Patient currently sitting up in bed in no apparent distress. Eating breakfast. Preoperative teaching reinforced. All questions answered. Objective - Vital Signs Vital signs: Vital Signs Temp 97.2 F L 08/12/16 04:00 Pulse 53 L 08/12/16 04:00 Resp 16 08/12/16 04:00 BP 98/49 08/12/16 04:00 Pulse Ox 97 08/12/16 04:00 Intake & Output 08/11/16 08/12/16 08/12/16 18:59 06:59 18:59 Intake Total 980 400 Balance 980 400 Weight 109.5 kg Intake: IV 160 0.9 160 Intake, IV Titration 500 Amount Heparin Sodium,Porcine/ 500 D5w Pmx 25,000 unit In Dextrose/Water 1 500ml. bag @ 8.9 UNITS/KG/HR 19. 86 mls/hr IV .Q24H [facility] Rx #:[id number] Oral 480 240 Other: Voiding Method Toilet Toilet # Voids 1 2 # Bowel Movements 0 - Constitutional General appearance: Present: cooperative, no acute distress, obese - Respiratory Details: Lungs sounds diminished bilaterally. Respirations even, nonlabored. Currently on room air with oxygen saturation 97%. Able to achieve 1250 mL on his incentive spirometry. - Cardiovascular Details: S1, S2 present. Regular rate and rhythm, normal sinus rhythm on telemetry. - Gastrointestinal Gastrointestinal Comment(s): Abdomen soft, nontender, nondistended. Active bowel sounds 4 quadrants. Tolerating diet. - Genitourinary Genitourinary Comment(s): Continues to void clear, yellow urine. - Musculoskeletal Musculoskeletal: Present: gait normal, strength equal bilaterally - Psychiatric Psychiatric: Present: A&O x's 3, appropriate affect, intact judgment & insight - Allied health notes Allied health notes reviewed: nursing - Labs CBC & Chem 7: 08/12/16 05:59 08/11/16 06:20 Labs: Abnormal Lab Results - Last 24 Hours (Table) 08/09/16 08/11/16 08/11/16 Range/Units 15:45 11:38 17:01 RBC (4.30-5.90) m/uL Plt Count (150-450) k/uL APTT (22.0-30.0) sec POC Glucose (mg/dL) 168 H 136 H (75-99) mg/dL Crossmatch See Detail 08/11/16 08/12/16 08/12/16 Range/Units 20:33 05:55 05:59 RBC 3.98 L (4.30-5.90) m/uL Plt Count 81 L (150-450) k/uL APTT (22.0-30.0) sec POC Glucose (mg/dL) 233 H 172 H (75-99) mg/dL Crossmatch 08/12/16 Range/Units 05:59 RBC (4.30-5.90) m/uL Plt Count (150-450) k/uL APTT 58.3 H (22.0-30.0) sec POC Glucose (mg/dL) (75-99) mg/dL Crossmatch Microbiology - Last 24 Hours (Table) 08/09/16 22:10 Nasal Screen MRSA/MSSA ([facility]) - Final Nasal Swab 08/09/16 22:10 Urine Culture - Final Urine,Voided Assessment and Plan (1) Diabetes Status: Acute (2) Hyperlipidemia Status: Acute (3) History of pulmonary embolus (PE) Status: Acute (4) History of deep vein thrombosis Status: Acute (5) Thrombocytopenia Status: Acute (6) Coronary artery disease Status: Acute Plan: 1. Continue beta abran, statin, heparin drip. DC heparin drip tomorrow morning credit collections specialist to OR. 2. Preoperative teaching reinforced. 3. Preoperative testing results reviewed. 4. Hematology cleared patient for surgery as long as platelet count is greater than 50,000. This morning his platelet count is 81,000. Extra platelets ordered. 5. Anticipate coronary artery bypass graft surgery 08/13/2016. Nothing by mouth after midnight. 6. Encourage increased activity, ambulate in the hallway. 7. Encourage incentive spirometry practice preoperatively. 8. GI/DVT prophylaxis. 9. More recommendations patient progresses. Time with Patient: Greater than 30 <Ramin Traore - Last Filed: 08/13/16 16:24> Objective - Vital Signs Vital signs: Vital Signs Temp 98.0 F 08/13/16 06:25 Pulse 83 08/13/16 16:15 Resp 16 08/13/16 06:25 BP 133/64 08/13/16 06:25 Pulse Ox 94 L 08/13/16 06:25 Intake & Output 08/12/16 08/13/16 08/13/16 18:59 06:59 18:59 Intake Total 908 340 952 Output Total 2100 Balance 908 340 -1148 Weight 109.5 kg 109.1 kg Intake: IV 160 340 952 0.9 160 340 Intake, IV Titration 268 Amount Heparin Sodium,Porcine 5, 268 000 unit In Sodium Chloride 0.9% 500 ml @ As Directed IV ONCE PRN Rx# :[id number] Oral 480 Output: Urine 600 Estimated Blood Loss 1500 Other: Voiding Method Toilet Toilet # Voids 1 1 - Labs CBC & Chem 7: 08/13/16 15:00 08/13/16 15:00 Labs: Abnormal Lab Results - Last 24 Hours (Table) 08/12/16 08/12/16 08/12/16 Range/Units 05:59 08:44 16:50 RBC (4.30-5.90) m/uL Hgb (13.0-17.5) gm/dL Hct (39.0-53.0) % Plt Count (150-450) k/uL Lymphocytes # (1.0-4.8) k/uL PT (9.0-12.0) sec Chloride (98-107) mmol/L Carbon Dioxide (22-30) mmol/L Glucose (74-99) mg/dL POC Glucose (mg/dL) 149 H (75-99) mg/dL Calcium (8.4-10.2) mg/dL Magnesium (1.6-2.3) mg/dL Total Bilirubin (0.2-1.3) mg/dL Total Protein (6.3-8.2) g/dL Albumin (3.5-5.0) g/dL RBC Folate 814 H (280 - 791) ng/mL Free [place] LC, Quant 2.06 H (0.33 - 1.94) mg/dL Crossmatch See Detail 08/12/16 08/13/16 08/13/16 Range/Units 20:43 05:40 08:44 RBC (4.30-5.90) m/uL Hgb (13.0-17.5) gm/dL Hct (39.0-53.0) % Plt Count (150-450) k/uL Lymphocytes # (1.0-4.8) k/uL PT (9.0-12.0) sec Chloride (98-107) mmol/L Carbon Dioxide (22-30) mmol/L Glucose (74-99) mg/dL POC Glucose (mg/dL) 217 H 175 H 179 H (75-99) mg/dL Calcium (8.4-10.2) mg/dL Magnesium (1.6-2.3) mg/dL Total Bilirubin (0.2-1.3) mg/dL Total Protein (6.3-8.2) g/dL Albumin (3.5-5.0) g/dL RBC Folate (280 - 791) ng/mL Free [place] LC, Quant (0.33 - 1.94) mg/dL Crossmatch 08/13/16 08/13/16 08/13/16 Range/Units 09:25 10:42 11:32 RBC (4.30-5.90) m/uL Hgb (13.0-17.5) gm/dL Hct (39.0-53.0) % Plt Count (150-450) k/uL Lymphocytes # (1.0-4.8) k/uL PT (9.0-12.0) sec Chloride (98-107) mmol/L Carbon Dioxide (22-30) mmol/L Glucose (74-99) mg/dL POC Glucose (mg/dL) 208 H 207 H 204 H (75-99) mg/dL Calcium (8.4-10.2) mg/dL Magnesium (1.6-2.3) mg/dL Total Bilirubin (0.2-1.3) mg/dL Total Protein (6.3-8.2) g/dL Albumin (3.5-5.0) g/dL RBC Folate (280 - 791) ng/mL Free [place] LC, Quant (0.33 - 1.94) mg/dL Crossmatch 08/13/16 08/13/16 08/13/16 Range/Units 12:01 12:38 13:11 RBC (4.30-5.90) m/uL Hgb (13.0-17.5) gm/dL Hct (39.0-53.0) % Plt Count (150-450) k/uL Lymphocytes # (1.0-4.8) k/uL PT (9.0-12.0) sec Chloride (98-107) mmol/L Carbon Dioxide (22-30) mmol/L Glucose (74-99) mg/dL POC Glucose (mg/dL) 264 H 253 H 263 H (75-99) mg/dL Calcium (8.4-10.2) mg/dL Magnesium (1.6-2.3) mg/dL Total Bilirubin (0.2-1.3) mg/dL Total Protein (6.3-8.2) g/dL Albumin (3.5-5.0) g/dL RBC Folate (280 - 791) ng/mL Free [place] LC, Quant (0.33 - 1.94) mg/dL Crossmatch 08/13/16 08/13/16 08/13/16 Range/Units 14:06 15:00 15:00 RBC (4.30-5.90) m/uL Hgb (13.0-17.5) gm/dL Hct (39.0-53.0) % Plt Count (150-450) k/uL Lymphocytes # (1.0-4.8) k/uL PT 14.5 H (9.0-12.0) sec Chloride 111 H (98-107) mmol/L Carbon Dioxide 21 L (22-30) mmol/L Glucose 171 H (74-99) mg/dL POC Glucose (mg/dL) 209 H (75-99) mg/dL Calcium 8.3 L (8.4-10.2) mg/dL Magnesium 2.5 H (1.6-2.3) mg/dL Total Bilirubin 1.5 H (0.2-1.3) mg/dL Total Protein 4.4 L (6.3-8.2) g/dL Albumin 2.5 L (3.5-5.0) g/dL RBC Folate (280 - 791) ng/mL Free [place] LC, Quant (0.33 - 1.94) mg/dL Crossmatch 08/13/16 08/13/16 Range/Units 15:00 15:04 RBC 3.21 L (4.30-5.90) m/uL Hgb 10.9 L (13.0-17.5) gm/dL Hct 31.4 L (39.0-53.0) % Plt Count 42 L* (150-450) k/uL Lymphocytes # 0.6 L (1.0-4.8) k/uL PT (9.0-12.0) sec Chloride (98-107) mmol/L Carbon Dioxide (22-30) mmol/L Glucose (74-99) mg/dL POC Glucose (mg/dL) 177 H (75-99) mg/dL Calcium (8.4-10.2) mg/dL Magnesium (1.6-2.3) mg/dL Total Bilirubin (0.2-1.3) mg/dL Total Protein (6.3-8.2) g/dL Albumin (3.5-5.0) g/dL RBC Folate (280 - 791) ng/mL Free [place] LC, Quant (0.33 - 1.94) mg/dL Crossmatch Assessment and Plan (1) Coronary artery disease Status: Acute Plan: The patient was seen and examined. I agree with the above assessment and plan. There were no new issues overnight. His platelet count today is 81,000. An ultrasound of the abdomen was ordered by hematology. The patient does not appear to have significant splenomegaly or liver disease. He is scheduled for coronary artery bypass surgery tomorrow.
--- NOTE | 2016-08-12 15:54 | P.PN ---
Subjective 80-year-old male patient, complaining of exertional dyspnea over the past several months. The patient denied having any chest pain. 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 The patient was found to have occluded right coronary artery with collaterals filling from the left. The patient was found to have critical disease involving the left main coronary artery and critical disease involving diffuse marginal branch of circumflex and proximal LAD. Based on this, coronary artery bypass surgery was recommended. The patient was seen by cardiothoracic surgery and the tentative plan to undergo surgery on this patient is on Tuesday. The preoperative echocardiogram showed a preserved LV function with an ejection fraction of 50-55%. No evidence of any pulmonary hypertension. No evidence of any valvular abnormalities. There is evidence of hypertensive heart disease with concentric left ventricular hypertrophy. Chest x-ray shows no acute cardio pulmonary process. He has history of pulmonary embolism and DVT and the patient has been maintained on anticoagulation on outpatient basis with warfarin. On today's evaluation of 08/11/2016 the patient is stable. The patient has no specific complaints. The patient is using his incentive spirometer. The patient was found to have chronic thrombocytopenia and for that reason a hematology consultation was obtained. History of any chest pain. He remains on IV heparin. Awaiting surgery on Tuesday. A bedside spirometry is still to be done. On the patient remains stable. No other changes condition. Surgery will be done tomorrow. Pulmonary will to follow-up on this patient. His platelet counts are stable at 81,000. He remains on IV heparin. Objective - Vital Signs Vital signs: Vital Signs Temp 97.0 F L 08/12/16 12:00 Pulse 67 08/12/16 12:00 Resp 18 08/12/16 12:00 BP 134/71 08/12/16 12:00 Pulse Ox 94 L 08/12/16 12:00 Intake & Output 08/11/16 08/12/16 08/12/16 18:59 06:59 18:59 Intake Total 980 400 240 Balance 980 400 240 Weight 109.5 kg 109.5 kg Intake: IV 160 0.9 160 Intake, IV Titration 500 Amount Heparin Sodium,Porcine/ 500 D5w Pmx 25,000 unit In Dextrose/Water 1 500ml. bag @ 8.9 UNITS/KG/HR 19. 86 mls/hr IV .Q24H [facility] Rx #:[id number] Oral 480 240 240 Other: Voiding Method Toilet Toilet Toilet # Voids 1 2 1 # Bowel Movements 0 - Exam The patient appeared well nourished and normally developed. Vital signs as documented. Head exam is unremarkable. No scleral icterus or corneal arcus noted. Neck is without jugular venous distension, thyromegaly, or carotid bruits. Carotid upstrokes are brisk bilaterally. Lungs are clear to auscultation and percussion. Cardiac exam reveals the PMI to be normally sized and situated. Rhythm is regular. First and second heart sounds normal. No murmurs, rubs or gallops. Abdominal exam reveals normal bowel sounds, no masses , no organomegaly and no aortic enlargement. Extremities are nonedematous and both femoral and pedal pulses are normal. - Labs CBC & Chem 7: 08/12/16 05:59 08/11/16 06:20 Labs: Abnormal Lab Results - Last 24 Hours (Table) 08/09/16 08/11/16 08/11/16 Range/Units 15:45 17:01 20:33 RBC (4.30-5.90) m/uL Plt Count (150-450) k/uL APTT (22.0-30.0) sec POC Glucose (mg/dL) 136 H 233 H (75-99) mg/dL Crossmatch See Detail 08/12/16 08/12/16 08/12/16 Range/Units 05:55 05:59 05:59 RBC 3.98 L (4.30-5.90) m/uL Plt Count 81 L (150-450) k/uL APTT 58.3 H (22.0-30.0) sec POC Glucose (mg/dL) 172 H (75-99) mg/dL Crossmatch 08/12/16 08/12/16 Range/Units 08:44 11:28 RBC (4.30-5.90) m/uL Plt Count (150-450) k/uL APTT (22.0-30.0) sec POC Glucose (mg/dL) 130 H (75-99) mg/dL Crossmatch See Detail Microbiology - Last 24 Hours (Table) 08/09/16 22:10 Nasal Screen MRSA/MSSA ([facility]) - Final Nasal Swab Assessment and Plan Plan: Assessment 1 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 The patient will be undergoing coronary bypass surgery. LV function is preserved with an ejection fraction of 55% 2 diabetes mellitus maintained on oral hypoglycemics 3 hypertension 4 hyperlipidemia 5 previous history of DVT and pulmonary embolism , maintained on warfarin outpatient basis 6 thrombocytopenia Plan Continue using IS. Would continue to follow. Anticipate coronary bypass surgery in a.m.
--- NOTE | 2016-08-12 16:19 | US ---
EXAMINATION TYPE: US abdomen complete DATE OF EXAM: 08/12/2016 2:34 PM COMPARISON: NONE CLINICAL HISTORY: 80-year-old male thrombocytopenia, eval liver/spleen . TECHNIQUE: Multiple sonographic images of the abdomen are obtained. FINDINGS: APPRENTICESHIP TRAINING REPRESENTATIVE NOTES: Patient of large body habitus with extensive midline bowel gas, somewhat limited s tudy Liver Length: 13.9 cm Gallbladder Wall: 0.2 cm CBD: 5.5 mm Spleen: 13.9 cm Right Kidney: 12.8 x 4.9 x 6.2 cm Left Kidney: 12.6 x 4.6 x 4.9 cm Pancreas: Obscured by bowel gas Liver: limited visualization due to limited intercostal window. Visualized portions of the liver deuce ws somewhat echogenic appearance. Gallbladder: No abnormal gallbladder distention, wall thickening, pericholecystic fluid, or shadowin g calculi. A phrygian cap is noted. Evidence for sonographic Tabares's sign: no CBD: not well seen. Visualized portion is normal caliber. Spleen: Borderline enlarged Right Kidney: Lobulated contour without hydronephrosis. There are scattered echogenic foci largest m easuring 0.6 x 0.6 x 0.5cm, possible stones. Left Kidney: No hydronephrosis. Upper IVC: wnl Abd Aorta: Obscured by overlying bowel gas IMPRESSION: 1. Technically limited examination. The visualized portions of the liver show an echogenic appearance suggesting some degree of fatty infiltration. Clinically correlate. 2. Echogenic foci within the right kidney suspected to represent nonobstructive calculi. 3. Borderline splenomegaly (13.9 cm).
[2016-08-12 17:17] LABS: Glucose,Whole Blood 149 mg/dL (75-99)
--- NOTE | 2016-08-12 18:19 | PN ---
DATE OF SERVICE: 08/12/2016 REASON FOR ADMISSION: Increasing shortness of breath, chest pressure, medical management. INTERVAL HISTORY: This is an 80-year-old gentleman who presented to the emergency department with increasing shortness of breath and chest pressure. Patient is now status post heart catheterization, found to have triple-vessel disease. Open heart surgery on Tuesday08/13/2016. Today patient is sitting up at the bedside visiting with family. No acute distress noted or voiced. No shortness of breath. No complaints of chest pain. Walking in the hallways when not with family. Review of systems done for constitutional, cardiovascular, GI, pulmonary, with relevant findings as above. CURRENT MEDICATIONS: 1. Lipitor. 2. Glucotrol. 3. Heparin. 4. Metoprolol. PHYSICAL EXAMINATION: VITAL SIGNS: Temperature 97.0, pulse 67, respirations 18, blood pressure 134/71, oxygen saturation 94% on room air. GENERAL APPEARANCE: Patient is sitting at the bedside. No acute distress noted or voiced. EYES: Pupils equal. Conjunctivae normal. NECK: JVD not raised. Mass not palpable. LUNGS: Diminished to the bases bilaterally. Clear to auscultation, upper lobes. Respiratory effort normal, unlabored. CARDIOVASCULAR: First and second sounds noted. No edema. ABDOMEN: Soft, nontender. Liver and spleen not palpable. PSYCHIATRY: Alert and oriented x3. Mood and affect normal. INVESTIGATIONS: White blood cell count 4.2, hemoglobin 13.8, platelet count 81. Blood glucose 130. ASSESSMENT: 1. Triple-vessel disease per cardiac catheterization; awaiting coronary artery bypass. 2. Thrombocytopenia, stable. Possible ITP. 3. Diabetes mellitus, type 2, on oral hypoglycemics. 4. Chronic deep vein thrombosis, pulmonary embolus, on Coumadin. 5. Hyperlipidemia. 6. 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 7. Benign prosthetic hypertrophy. 8. Intravenous heparin monitoring for therapeutic level. PLAN: Patient is scheduled for cardiac bypass surgery on 08/13/2016. Pulmonology performed preoperative teaching. Hematology/Oncology feels that it is okay for the patient to receive CABG as long as the platelet remains greater than 50,000. Furthermore, patient should not require any anticoagulation postoperatively unless he develops an arrhythmia. Will continue current plan of care and treatment. Patient was seen and examined by nurse practitioner, Fiorella Kapadia, and all elements of the case were discussed with attending, Dr. Long.
[2016-08-12] MEDS: LATANOPROST 0.005% OPHTH DROPS 2.5 ML BTL BOTH EYES SCH (20:23)
[2016-08-12] MEDS: prednisoLONE ACETATE 1% OPHTH DROPS 1 ML BTL LEFT EYE SCH (20:27)
[2016-08-12 20:44] LABS: Glucose,Whole Blood 217 mg/dL (75-99)
[2016-08-13] MEDS ORDERED: PHENYLEPHRINE 40 MG in SODIUM CHLORIDE 0.9% 250 ML IV PRN (05:00)
[2016-08-13] MEDS ORDERED: ASPIRIN 81 MG CHEW PO ONE (05:00)
[2016-08-13] MEDS ORDERED: CALCIUM CHLORIDE 100 MG/ML 10 ML SYRINGE IVP PRN (05:00)
[2016-08-13] MEDS ORDERED: DEXTROSE 5% IN WATER 1,000 ML with POTASSIUM CHLORIDE 110 MEQ, MAGNESIUM SULFATE 16 MEQ... IV PRN ×5 (05:00)
[2016-08-13] MEDS ORDERED: CHLORHEXIDINE GLUCONATE 15 ML CUP MUCOUS MEM PRN (05:00)
[2016-08-13] MEDS ORDERED: SODIUM BICARB 8.4% 50 ML SYR (1 MEQ/ML) IV PRN (05:00)
[2016-08-13] MEDS ORDERED: MAGNESIUM SULFATE SYG 4.06 MEQ/ML SYRINGE IV PRN (05:00)
[2016-08-13] MEDS ORDERED: PHENYLEPHRINE-0.9% NACL SYG 1 MG/10 ML SYRINGE IV PRN ×4 (05:00)
[2016-08-13] MEDS ORDERED: DEXTROSE 5% IN WATER 1,000 ML with POTASSIUM CHLORIDE 25 MEQ, SODIUM CHLORIDE 4MEQ/ML V... IV PRN ×6 (05:00)
[2016-08-13] MEDS ORDERED: AMINOCAPROIC ACID 250 MG/ML 20 ML VIAL IV PRN (05:00)
[2016-08-13] MEDS ORDERED: HEPARIN SODIUM,PORCINE 5,000 UNIT in SODIUM CHLORIDE 0.9% 500 ML IV PRN (05:00)
[2016-08-13] MEDS ORDERED: NITROGLYCERIN-D5W PMX 50 MG in DEXTROSE/WATER 1 250ML.BAG IV PRN (05:00)
[2016-08-13] MEDS ORDERED: ALBUMIN HUMAN 5% 500 ML in EMPTY BAG 1 BAG IVPB PRN ×6 (05:00)
[2016-08-13] MEDS ORDERED: PROTAMINE SULFATE 10 MG/ML 25 ML VIAL IV PRN (05:00)
[2016-08-13] MEDS ORDERED: HEPARIN SODIUM 1,000 UNIT/ML VIAL IV PRN (05:00)
[2016-08-13] MEDS ORDERED: ceFAZolin 1,000 MG in SODIUM CHLORIDE 0.9% IRRIGATIO 1,000 ML IRRIGATION ONE (05:00)
[2016-08-13] MEDS ORDERED: NOREPINEPHRIN 4 MG-0.9% NS PMX 4 MG/250 ML ML IV PRN (05:00)
[2016-08-13] MEDS ORDERED: ceFAZolin 2 GM in SODIUM CHLORIDE 0.9% 30 ML IVPB ONE (05:00)
[2016-08-13] MEDS ORDERED: PAPAVERINE 360 MG in SODIUM CHLORIDE 0.9% 90 ML IV PRN (05:00)
[2016-08-13] MEDS ORDERED: MANNITOL 25% 12.5 GM/50 ML VIAL IV PRN ×2 (05:00)
[2016-08-13] MEDS ORDERED: LACTATED RINGERS 1,000 ML IV PRN (05:00)
[2016-08-13] MEDS ORDERED: NITROGLYCERIN-D5W PMX 25 MG/250 ML BTL IV PRN (05:00)
[2016-08-13] MEDS ORDERED: METOPROLOL TARTRATE 12.5 MG TAB PO ONE (05:00)
[2016-08-13] MEDS ORDERED: ALBUMIN HUMAN 25% 50 ML in EMPTY BAG 1 BAG IVPB PRN (05:00)
[2016-08-13] MEDS ORDERED: AMINOCAPROIC ACID 5,000 MG in DEXTROSE 5% IN WATER 50 ML IV PRN ×4 (05:00)
[2016-08-13] MEDS ORDERED: ceFAZolin 2,000 MG in SODIUM CHLORIDE 0.9% 30 ML IVPB ONE (05:00)
[2016-08-13] MEDS ORDERED: ATORVASTATIN 10 MG TAB PO ONE (05:00)
[2016-08-13] MEDS ORDERED: PROTAMINE SULFATE 250 MG in EMPTY BAG 1 BAG IV PRN (05:00)
[2016-08-13 05:41] LABS: Glucose,Whole Blood 175 mg/dL (75-99)
[2016-08-13] MEDS ORDERED: IV FLUID CONTINUATION 1,000 ML IV ONE (06:33)
[2016-08-13] MEDS ORDERED: PROTAMINE SULFATE 10 MG/ML 25 ML VIAL IV ONE (08:07)
[2016-08-13] MEDS ORDERED: SODIUM CHLORIDE 0.9% IRRIG 1,000 ML BTL IRRIGATION ONE (08:07)
[2016-08-13] MEDS ORDERED: HEPARIN SODIUM,PORCINE 10,000 UNIT/ML 1 ML VIAL ONE (08:07)
[2016-08-13] MEDS ORDERED: VECURONIUM 10 MG VIAL IV ONE (08:07)
[2016-08-13] MEDS ORDERED: fentaNYL (PF) 50 MCG/ML 50 ML VIAL ONE (08:07)
[2016-08-13] MEDS ORDERED: SUCCINYLCHOLINE CHLORIDE 100 MG/5 ML SYR IV ONE (08:07)
[2016-08-13] MEDS ORDERED: PROPOFOL 10 MG/ML 20 ML VIAL IV ONE (08:07)
[2016-08-13] MEDS ORDERED: LIDOCAINE 2% SYG (PF) 100 MG/5 ML ONE (08:07)
[2016-08-13] MEDS ORDERED: PHENYLEPHRINE-0.9% NACL SYG 1 MG/10 ML SYRINGE ONE (08:07)
[2016-08-13] MEDS ORDERED: fentaNYL (PF) 50 MCG/ML 2 ML AMP ONE (08:07)
[2016-08-13] MEDS ORDERED: MAGNESIUM SULFATE 4 MEQ/ML 2 ML VIAL ONE (08:07)
[2016-08-13] MEDS ORDERED: MIDAZOLAM 2 MG/2 ML VIAL ONE (08:07)
[2016-08-13] MEDS ORDERED: CALCIUM CHLORIDE 100 MG/ML 10 ML SYRINGE ONE (08:07)
[2016-08-13] MEDS ORDERED: SODIUM BICARB 8.4% 50 ML SYR (1 MEQ/ML) ONE (08:07)
[2016-08-13] MEDS ORDERED: ePHEDrine 50 MG/ML 1 ML AMP ONE (08:07)
[2016-08-13] MEDS ORDERED: HEPARIN SODIUM 1,000 UNIT/ML VIAL ONE (08:07)
[2016-08-13] MEDS ORDERED: ELECTROLYTE-R (PH 7.4) 1,000 ML IV.SOLN IV ONE (08:07)
[2016-08-13] MEDS ORDERED: VANCOMYCIN 1,000 MG in SODIUM CHLORIDE 0.9% 250 ML IVPB STA (08:09)
[2016-08-13 08:46] LABS: Glucose,Whole Blood 179 mg/dL (75-99)
[2016-08-13] MEDS ORDERED: SODIUM CHLORIDE 0.9% 500 ML with HEPARIN SODIUM,PORCINE 5,000 UNIT IRRIGATION ONE ×2 (08:56)
[2016-08-13] MEDS ORDERED: PAPAVERINE 360 MG in SODIUM CHLORIDE 0.9% 90 ML IRRIGATION ONE (08:57)
[2016-08-13] MEDS ORDERED: VANCOMYCIN 1,000 MG in SODIUM CHLORIDE 0.9% IRRIGATIO 1,000 ML IRRIGATION ONE ×2 (09:04→09:30)
[2016-08-13 09:28] LABS: Glucose,Whole Blood 208 mg/dL (75-99)
[2016-08-13 10:56] LABS: Glucose,Whole Blood 207 mg/dL (75-99)
[2016-08-13 11:34] LABS: Glucose,Whole Blood 204 mg/dL (75-99)
[2016-08-13] MEDS ORDERED: IV VANCOMYCIN PER PHARMACY 1 EACH MISC MISCELLANE PRN (11:43)
[2016-08-13] MEDS ORDERED: Phosphorus Replacement Protoco 1 EACH MISC MISCELLANE PRN (11:43)
[2016-08-13] MEDS ORDERED: BENZOCAINE/MENTHOL LOZENG 1 EACH LOZENGE MUCOUS MEM PRN (11:43)
[2016-08-13] MEDS ORDERED: Potassium Replacement Protocol 1 EACH MISC MISCELLANE PRN (11:43)
[2016-08-13] MEDS ORDERED: CALCIUM GLUCONATE 2,000 MG in SODIUM CHLORIDE 0.9% 100 ML IVPB PRN (11:43)
[2016-08-13] MEDS ORDERED: ONDANSETRON 4 MG/2 ML VIAL IVP PRN (11:43)
[2016-08-13] MEDS ORDERED: hydrALAZINE HCL 20 MG/ML 1 ML VIAL IVP PRN (11:43)
[2016-08-13] MEDS ORDERED: Magnesium Replacement Protocol 1 EACH MISC MISCELLANE PRN (11:43)
[2016-08-13 12:03] LABS: Glucose,Whole Blood 264 mg/dL (75-99)
[2016-08-13 12:57] LABS: Glucose,Whole Blood 253 mg/dL (75-99)
[2016-08-13 13:14] LABS: Free Kappa Lt Chain Qnt, Serum 2.06 mg/dL (0.33 - 1.94); Kappa/Lambda Light Chain Ratio 1.47 (0.26 - 1.65)
[2016-08-13 13:32] LABS: Glucose,Whole Blood 263 mg/dL (75-99)
[2016-08-13 14:08] LABS: Glucose,Whole Blood 209 mg/dL (75-99)
[2016-08-13] MEDS: PROPOFOL 500 MG in EMPTY BAG 1 BAG IV PRN ×5 (15:00→22:57)
[2016-08-13] MEDS ORDERED: CLEVIDIPINE BUTYRATE 25 MG/50 ML VIAL IV ONE (15:00)
[2016-08-13 15:06] LABS: Glucose,Whole Blood 177 mg/dL (75-99)
[2016-08-13] MEDS ORDERED: LACTATED RINGERS 1,000 ML IV SCH (15:15)
[2016-08-13] MEDS ORDERED: MIDAZOLAM 2 MG/2 ML VIAL IV PRN (15:15)
[2016-08-13 15:21] LABS: Basophils % (A) 0 %; CHCM 33.9; Eosinophils % (A) 0 %; HCT 31.4 % (39.0-53.0); HDW 2.54; HGB 10.9 gm/dL (13.0-17.5); Luc # (Auto) 0.03; Luc % (Auto) 1; Lymphocytes # (A) 0.6 k/uL (1.0-4.8); Lymphocytes % (A) 9 %; MCH 33.9 pg (25.0-35.0); MCHC 34.6 g/dL (31.0-37.0); MCV 97.9 fL (80.0-100.0); Mean Platelet Volume 9.8; Monocytes # (A) 0.4 k/uL (0-1.0); Monocytes % (A) 7 %; Neutrophils # (A) 5.1 k/uL (1.3-7.7); Neutrophils % (A) 83 %; RBC 3.21 m/uL (4.30-5.90); WBC 6.1 k/uL (3.8-10.6); WBC (Perox) 5.74
[2016-08-13] MEDS: DORZOLAMIDE HCL 2% DROPS 10 ML BTL LEFT EYE SCH (15:24)
[2016-08-13] MEDS: GLIMEPIRIDE 4 MG TAB PO SCH ×2 (15:24→22:21)
[2016-08-13] MEDS: glipiZIDE 10 MG TAB PO SCH (15:25)
[2016-08-13] MEDS: MUPIROCIN 2% OINT 22 GM TUBE TOPICAL SCH ×2 (15:25→22:28)
[2016-08-13] MEDS: IPRATROPIUM-ALBUTEROL 3 ML NEB INHALATION SCH ×4 (15:25→23:37)
[2016-08-13 15:27] LABS: INR 1.5 (<1.1); Partial Thromboplastin Time 26.6 sec (22.0-30.0); Prothrombin Time 14.5 sec (9.0-12.0)
[2016-08-13] MEDS: INSULIN REGULAR 100 UNIT in SODIUM CHLORIDE 0.9% 100 ML IV PRN (15:30)
[2016-08-13] MEDS: CLEVIDIPINE BUTYRATE 25 MG in EMPTY BAG 1 BAG IV PRN ×3 (15:30→22:17)
--- NOTE | 2016-08-13 15:33 | XR ---
EXAMINATION TYPE: XR chest 1V portable DATE OF EXAM: 08/13/2016 3:25 PM COMPARISON: 08/09/2016 INDICATION: Post CABG TECHNIQUE: Single frontal view of the chest is obtained. FINDINGS: The heart size is normal. The pulmonary vasculature is normal. No suspicious consolidations are evident. An endotracheal tube is present with the tip above the nick. A nasogastric tube is in the upper eso phagus with the tip near the mid to distal esophagus. [place] catheter is present with tip in the r ight main pulmonary artery. 2 mediastinal tubes are present. Left-sided chest tube is present. No pne umothorax is evident. IMPRESSIONS: 1. Multiple lines and catheters. Nasogastric tube tip is within the distal esophagus. 2. No acute pulmonary process.
[2016-08-13 15:39] LABS: Ionized Calcium 5.1 mg/dL (4.5-5.3)
[2016-08-13 15:50] LABS: ALT 48 U/L (21-72); AST 42 U/L (17-59); Alkaline Phosphatase 45 U/L (38-126); Anion Gap 8 mmol/L; Blood Urea Nitrogen 15 mg/dL (9-20); Calcium 8.3 mg/dL (8.4-10.2); Carbon Dioxide 21 mmol/L (22-30); Chloride 111 mmol/L (98-107); Glucose 171 mg/dL (74-99); Magnesium 2.5 mg/dL (1.6-2.3); Non-African American GFR(MDRD) >60 (>60 ml/min/1.73 sqM); Potassium 4.2 mmol/L (3.5-5.1); Sodium 140 mmol/L (137-145); Total Bilirubin 1.5 mg/dL (0.2-1.3); Total Protein 4.4 g/dL (6.3-8.2)
[2016-08-13 16:30] LABS: ABG PCO2 48 mmHg (35-45); ABG PH 7.31 (7.35-7.45); ABG PO2 115 mmHg (83-108)
[2016-08-13 16:31] LABS: ABG Base Excess -2.1 mmol/L; ABG HCO3 23 mmol/L (21-25); ABG TCO2 25 mmol/L (19-24)
[2016-08-13 16:44] LABS: Glucose,Whole Blood 130 mg/dL (75-99)
--- NOTE | 2016-08-13 17:17 | P.PN ---
Subjective 80-year-old male patient, complaining of exertional dyspnea over the past several months. The patient denied having any chest pain. 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 The patient was found to have occluded right coronary artery with collaterals filling from the left. The patient was found to have critical disease involving the left main coronary artery and critical disease involving diffuse marginal branch of circumflex and proximal LAD. Based on this, coronary artery bypass surgery was recommended. The patient was seen by cardiothoracic surgery and the tentative plan to undergo surgery on this patient is on Tuesday. The preoperative echocardiogram showed a preserved LV function with an ejection fraction of 50-55%. No evidence of any pulmonary hypertension. No evidence of any valvular abnormalities. There is evidence of hypertensive heart disease with concentric left ventricular hypertrophy. Chest x-ray shows no acute cardio pulmonary process. He has history of pulmonary embolism and DVT and the patient has been maintained on anticoagulation on outpatient basis with warfarin. On today's evaluation of 08/11/2016 the patient is stable. The patient has no specific complaints. The patient is using his incentive spirometer. The patient was found to have chronic thrombocytopenia and for that reason a hematology consultation was obtained. History of any chest pain. He remains on IV heparin. Awaiting surgery on Tuesday. A bedside spirometry is still to be done. On the patient remains stable. No other changes condition. Surgery will be done tomorrow. Pulmonary will to follow-up on this patient. His platelet counts are stable at 81,000. He remains on IV heparin. On 08/13/2016 I'm seeing this patient following his carotid bypass surgery. The patient underwent the surgery without any major complication. I discussed the case with the thoracic surgeon and the intraoperative course was essentially uncomplicated. The patient currently is intubated on mechanical ventilator. He is still sedated. He is hemodynamically stable. He is on a nitroglycerin and Cleviprex Drip for tight blood pressure control. The patient' s cardiac output is at 6.3 with an index of 2.8. PA pressures 29/17. The patient is also has his chest tubes in place with total amount of output being low at this point despite his underlying thrombocytopenia. He is also on an insulin drip at 40 units an hour for blood sugar control. Chest x-ray shows adequate expansion of both lungs and the chest tubes, ET tube and the [place] catheter in place. The blood gases showed a pH of 7.31 with a pCO2 of 48 and pO2 of 115 and it was not an FiO2 of 100% and I wean down the FiO2 down to 70% and the saturation is currently above 95%. The patient is also on assist control mode of ventilation with a PEEP of 5 and FiO2 of 70% with a tidal volume of 550. His rate is at 12. Postoperative platelet counts is at 42,000. Hemoglobin is at 10.9. The patient has not required any platelet transfusions. Objective - Vital Signs Vital signs: Vital Signs Temp 98.0 F 08/13/16 06:25 Pulse 83 08/13/16 16:15 Resp 16 08/13/16 06:25 BP 133/64 08/13/16 06:25 Pulse Ox 94 L 08/13/16 06:25 Intake & Output 08/12/16 08/13/16 08/13/16 18:59 06:59 18:59 Intake Total 908 340 952 Output Total 2100 Balance 908 340 -1148 Weight 109.5 kg 109.1 kg Intake: IV 160 340 952 0.9 160 340 Intake, IV Titration 268 Amount Heparin Sodium,Porcine 5, 268 000 unit In Sodium Chloride 0.9% 500 ml @ As Directed IV ONCE PRN Rx# :[id number] Oral 480 Output: Urine 600 Estimated Blood Loss 1500 Other: Voiding Method Toilet Toilet # Voids 1 1 - Exam The patient is intubated on a mechanical ventilator. He is sedated with Diprivan and calm and comfortable. Orogastric and orotracheal tube in place. The patient has a right IJ [place] catheter Cordis in place.Head exam was generally normal. There was no scleral icterus or corneal arcus. Mucous membranes were moist.Neck was supple and without jugular venous distension, thyromegaly, or carotid bruits. Carotids were easily palpable bilaterally. There was no adenopathy. Lung sounds are equal and symmetrical breath sounds without any rhonchi or wheezes or any crackles. All of the chest tubes are all in place. Heart sounds are regular, positive S1-S2. No cervical murmurs appreciated. Sternum stable clean and intact.Abdominal exam revealed normal bowel sounds. The abdomen was soft, non-tender, and without masses, organomegaly , or appreciable enlargement of the abdominal aorta. Extremities show diminished pulses. There is no cyanosis or clubbing. All of the surgical wound sites are dry clean and intact at this point. Neurologically the patient remains sedated. - Labs CBC & Chem 7: 08/13/16 15:00 08/13/16 15:00 Labs: Abnormal Lab Results - Last 24 Hours (Table) 08/12/16 08/12/16 08/12/16 Range/Units 05:59 08:44 16:50 RBC (4.30-5.90) m/uL Hgb (13.0-17.5) gm/dL Hct (39.0-53.0) % Plt Count (150-450) k/uL Lymphocytes # (1.0-4.8) k/uL PT (9.0-12.0) sec ABG pH (7.35-7.45) ABG pCO2 (35-45) mmHg ABG pO2 (83-108) mmHg ABG Total CO2 (19-24) mmol/L ABG O2 Saturation (94-97) % Chloride (98-107) mmol/L Carbon Dioxide (22-30) mmol/L Glucose (74-99) mg/dL POC Glucose (mg/dL) 149 H (75-99) mg/dL Calcium (8.4-10.2) mg/dL Magnesium (1.6-2.3) mg/dL Total Bilirubin (0.2-1.3) mg/dL Total Protein (6.3-8.2) g/dL Albumin (3.5-5.0) g/dL RBC Folate 814 H (280 - 791) ng/mL [place] LC, Quant 2.06 H (0.33 - 1.94) mg/dL Crossmatch See Detail 08/12/16 08/13/16 08/13/16 Range/Units 20:43 05:40 08:44 RBC (4.30-5.90) m/uL Hgb (13.0-17.5) gm/dL Hct (39.0-53.0) % Plt Count (150-450) k/uL Lymphocytes # (1.0-4.8) k/uL PT (9.0-12.0) sec ABG pH (7.35-7.45) ABG pCO2 (35-45) mmHg ABG pO2 (83-108) mmHg ABG Total CO2 (19-24) mmol/L ABG O2 Saturation (94-97) % Chloride (98-107) mmol/L Carbon Dioxide (22-30) mmol/L Glucose (74-99) mg/dL POC Glucose (mg/dL) 217 H 175 H 179 H (75-99) mg/dL Calcium (8.4-10.2) mg/dL Magnesium (1.6-2.3) mg/dL Total Bilirubin (0.2-1.3) mg/dL Total Protein (6.3-8.2) g/dL Albumin (3.5-5.0) g/dL RBC Folate (280 - 791) ng/mL [place] LC, Quant (0.33 - 1.94) mg/dL Crossmatch 08/13/16 08/13/16 08/13/16 Range/Units 09:25 10:42 11:32 RBC (4.30-5.90) m/uL Hgb (13.0-17.5) gm/dL Hct (39.0-53.0) % Plt Count (150-450) k/uL Lymphocytes # (1.0-4.8) k/uL PT (9.0-12.0) sec ABG pH (7.35-7.45) ABG pCO2 (35-45) mmHg ABG pO2 (83-108) mmHg ABG Total CO2 (19-24) mmol/L ABG O2 Saturation (94-97) % Chloride (98-107) mmol/L Carbon Dioxide (22-30) mmol/L Glucose (74-99) mg/dL POC Glucose (mg/dL) 208 H 207 H 204 H (75-99) mg/dL Calcium (8.4-10.2) mg/dL Magnesium (1.6-2.3) mg/dL Total Bilirubin (0.2-1.3) mg/dL Total Protein (6.3-8.2) g/dL Albumin (3.5-5.0) g/dL RBC Folate (280 - 791) ng/mL [place] LC, Quant (0.33 - 1.94) mg/dL Crossmatch 08/13/16 08/13/16 08/13/16 Range/Units 12:01 12:38 13:11 RBC (4.30-5.90) m/uL Hgb (13.0-17.5) gm/dL Hct (39.0-53.0) % Plt Count (150-450) k/uL Lymphocytes # (1.0-4.8) k/uL PT (9.0-12.0) sec ABG pH (7.35-7.45) ABG pCO2 (35-45) mmHg ABG pO2 (83-108) mmHg ABG Total CO2 (19-24) mmol/L ABG O2 Saturation (94-97) % Chloride (98-107) mmol/L Carbon Dioxide (22-30) mmol/L Glucose (74-99) mg/dL POC Glucose (mg/dL) 264 H 253 H 263 H (75-99) mg/dL Calcium (8.4-10.2) mg/dL Magnesium (1.6-2.3) mg/dL Total Bilirubin (0.2-1.3) mg/dL Total Protein (6.3-8.2) g/dL Albumin (3.5-5.0) g/dL RBC Folate (280 - 791) ng/mL [place] LC, Quant (0.33 - 1.94) mg/dL Crossmatch 08/13/16 08/13/16 08/13/16 Range/Units 14:06 15:00 15:00 RBC (4.30-5.90) m/uL Hgb (13.0-17.5) gm/dL Hct (39.0-53.0) % Plt Count (150-450) k/uL Lymphocytes # (1.0-4.8) k/uL PT 14.5 H (9.0-12.0) sec ABG pH (7.35-7.45) ABG pCO2 (35-45) mmHg ABG pO2 (83-108) mmHg ABG Total CO2 (19-24) mmol/L ABG O2 Saturation (94-97) % Chloride 111 H (98-107) mmol/L Carbon Dioxide 21 L (22-30) mmol/L Glucose 171 H (74-99) mg/dL POC Glucose (mg/dL) 209 H (75-99) mg/dL Calcium 8.3 L (8.4-10.2) mg/dL Magnesium 2.5 H (1.6-2.3) mg/dL Total Bilirubin 1.5 H (0.2-1.3) mg/dL Total Protein 4.4 L (6.3-8.2) g/dL Albumin 2.5 L (3.5-5.0) g/dL RBC Folate (280 - 791) ng/mL [place] LC, Quant (0.33 - 1.94) mg/dL Crossmatch 08/13/16 08/13/16 08/13/16 Range/Units 15:00 15:04 15:50 RBC 3.21 L (4.30-5.90) m/uL Hgb 10.9 L (13.0-17.5) gm/dL Hct 31.4 L (39.0-53.0) % Plt Count 42 L* (150-450) k/uL Lymphocytes # 0.6 L (1.0-4.8) k/uL PT (9.0-12.0) sec ABG pH 7.31 L (7.35-7.45) ABG pCO2 48 H (35-45) mmHg ABG pO2 115 H (83-108) mmHg ABG Total CO2 25 H (19-24) mmol/L ABG O2 Saturation 98.0 H (94-97) % Chloride (98-107) mmol/L Carbon Dioxide (22-30) mmol/L Glucose (74-99) mg/dL POC Glucose (mg/dL) 177 H (75-99) mg/dL Calcium (8.4-10.2) mg/dL Magnesium (1.6-2.3) mg/dL Total Bilirubin (0.2-1.3) mg/dL Total Protein (6.3-8.2) g/dL Albumin (3.5-5.0) g/dL RBC Folate (280 - 791) ng/mL [place] LC, Quant (0.33 - 1.94) mg/dL Crossmatch 08/13/16 Range/Units 16:43 RBC (4.30-5.90) m/uL Hgb (13.0-17.5) gm/dL Hct (39.0-53.0) % Plt Count (150-450) k/uL Lymphocytes # (1.0-4.8) k/uL PT (9.0-12.0) sec ABG pH (7.35-7.45) ABG pCO2 (35-45) mmHg ABG pO2 (83-108) mmHg ABG Total CO2 (19-24) mmol/L ABG O2 Saturation (94-97) % Chloride (98-107) mmol/L Carbon Dioxide (22-30) mmol/L Glucose (74-99) mg/dL POC Glucose (mg/dL) 130 H (75-99) mg/dL Calcium (8.4-10.2) mg/dL Magnesium (1.6-2.3) mg/dL Total Bilirubin (0.2-1.3) mg/dL Total Protein (6.3-8.2) g/dL Albumin (3.5-5.0) g/dL RBC Folate (280 - 791) ng/mL [place] LC, Quant (0.33 - 1.94) mg/dL Crossmatch Assessment and Plan Plan: Assessment 1 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 The patient underwent carotid bypass surgery and currently is postop day #0. He is hemodynamically stable. He has postoperative hypertension for which is on a combination of nitroglycerin and Cleviprex drip. The patient has adequate cardiac output. Urine output is also adequate. Chest tubes are relatively inactive in terms of his drainage. Mrs. 2 diabetes mellitus on insulin drip for blood sugar control 3 postoperative hypertension currently on a nitroglycerin drip and Cleviprex 4 post thoracotomy respiratory failure, expected, currently on assist control mode of ventilation and the necessary vent changes will be done 5 previous history of DVT and pulmonary embolism , maintained on warfarin outpatient basis, currently on no anti-coagulation most recent INR is at 1.5 6 thrombocytopenia him a stable with a platelet count of 42,000 without evidence of any acute bleeding Plan Continue vent support. Monitor hemodynamics. Wean off the nitroglycerin and Cleviprex drip based on the patient's blood pressure control. Monitor the output from the chest tube. Wean down the FiO2 by 10% and attempt to maintain a saturation above 92%. He is respiratory serrano stable and I would anticipate weaning and extubation with the next 6-12 hours. Reviewed the blood gas. Reviewed the chest x-ray. Reviewed the hemodynamics. We'll continue to follow. Monitor hematologic profile with special attention towards his platelet counts. Continue insulin drip. We'll follow.
[2016-08-13 18:13] LABS: Glucose,Whole Blood 125 mg/dL (75-99)
[2016-08-13 18:20] LABS: Basophils % (A) 0 %; CH 32.7; CHCM 33.1; Eosinophils % (A) 0 %; HCT 35.8 % (39.0-53.0); HDW 2.45; Luc % (Auto) 1; Lymphocytes # (A) 1.1 k/uL (1.0-4.8); Lymphocytes % (A) 12 %; MCH 33.4 pg (25.0-35.0); MCHC 33.6 g/dL (31.0-37.0); MCV 99.4 fL (80.0-100.0); Macrocytosis Slight; Mean Platelet Volume 9.9; Monocytes # (A) 0.7 k/uL (0-1.0); Monocytes % (A) 8 %; Neutrophils # (A) 6.8 k/uL (1.3-7.7); Neutrophils % (A) 78 %; RDW 14.4 % (11.5-15.5); WBC 8.7 k/uL (3.8-10.6); WBC (Perox) 9.03
[2016-08-13 18:25] LABS: INR 1.3 (<1.1); Partial Thromboplastin Time 29.3 sec (22.0-30.0); Prothrombin Time 12.8 sec (9.0-12.0)
[2016-08-13 19:10] LABS: Glucose,Whole Blood 136 mg/dL (75-99)
--- NOTE | 2016-08-13 19:52 | PN ---
DATE OF SERVICE: 08/12/2016 ATTENDING NOTE: Patient was seen and examined by me yesterday on 08/12/16. I reviewed the note of my nurse practitioner Ms. Kapadia and discussed with her. Patient has no chest pain. Awaiting coronary artery bypass tomorrow morning. Lying in bed. Family is at the bedside. On examination, lungs are clear. CARDIOVASCULAR: First and second sounds normal. INVESTIGATIONS: Accu-Cheks are noted. ASSESSMENT: 1. Triple-vessel coronary artery disease per cardiac catheterization; awaiting coronary artery bypass. 2. Thrombocytopenia, stable. 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 IV heparin monitoring for therapeutic level. PLAN: Await CABG. Hematology also saw the patient and okayed him to proceed with surgery.
[2016-08-13 20:04] LABS: Glucose,Whole Blood 162 mg/dL (75-99)
[2016-08-13] MEDS ORDERED: NALOXONE 0.4 MG/ML 1 ML VIAL IV PRN (20:29)
[2016-08-13] MEDS: MORPHINE SULFATE 2 MG/ML SYRINGE IVP PRN (20:45)
[2016-08-13 21:20] LABS: Glucose,Whole Blood 164 mg/dL (75-99)
[2016-08-13 21:32] LABS: Basophils % (A) 0 %; CH 32.6; Eosinophils % (A) 0 %; HCT 36.1 % (39.0-53.0); HDW 2.49; HGB 12.4 gm/dL (13.0-17.5); Luc # (Auto) 0.08; Luc % (Auto) 1; Lymphocytes # (A) 0.9 k/uL (1.0-4.8); Lymphocytes % (A) 10 %; MCHC 34.3 g/dL (31.0-37.0); MCV 99.3 fL (80.0-100.0); Mean Platelet Volume 9.9; Monocytes # (A) 0.6 k/uL (0-1.0); Monocytes % (A) 7 %; Neutrophils # (A) 7.1 k/uL (1.3-7.7); Neutrophils % (A) 82 %; RBC 3.63 m/uL (4.30-5.90); RDW 14.3 % (11.5-15.5); WBC 8.7 k/uL (3.8-10.6)
[2016-08-13 21:46] LABS: INR 1.3 (<1.1); Partial Thromboplastin Time 24.6 sec (22.0-30.0); Prothrombin Time 12.5 sec (9.0-12.0)
[2016-08-13 21:48] LABS: Ionized Calcium 5.2 mg/dL (4.5-5.3)
[2016-08-13 21:56] LABS: Anion Gap 8 mmol/L; Blood Urea Nitrogen 18 mg/dL (9-20); Calcium 8.7 mg/dL (8.4-10.2); Carbon Dioxide 21 mmol/L (22-30); Chloride 110 mmol/L (98-107); Glucose 170 mg/dL (74-99); Magnesium 2.2 mg/dL (1.6-2.3); Non-African American GFR(MDRD) >60 (>60 ml/min/1.73 sqM); Phosphorous 3.4 mg/dL (2.5-4.5); Potassium 4.6 mmol/L (3.5-5.1); Sodium 139 mmol/L (137-145)
[2016-08-13 22:11] LABS: Glucose,Whole Blood 170 mg/dL (75-99)
[2016-08-13] MEDS: VANCOMYCIN 1,750 MG in SODIUM CHLORIDE 0.9% 250 ML IVPB SCH (22:18)
[2016-08-13] MEDS: LATANOPROST 0.005% OPHTH DROPS 2.5 ML BTL BOTH EYES SCH (22:28)
--- NOTE | 2016-08-13 22:40 | OP ---
DATE OF SERVICE: 08/13/2016 SURGEON: Ramin Traore MD LITIGATION SPECIALIST: 1. ARIADNE LOPEZ. 2. ARIADNE LIM PREOPERATIVE DIAGNOSIS: Coronary artery disease. POSTOPERATIVE DIAGNOSIS: Coronary artery disease. OPERATION: 1. Coronary artery bypass grafting x two vessels (left internal mammary artery to left anterior descending artery, saphenous vein graft to obtuse marginal artery). 2. Endoscopic vein harvest left greater saphenous vein. 3. Epiaortic ultrasound. 4. Transesophageal echocardiogram ESTIMATED BLOOD LOSS: ANESTHESIA: General anesthesia. SPECIMENS REMOVED: None. COMPLICATIONS: None. INDICATION: The patient is an 80-year-old male with a history of multiple medical problems, who reports worsening shortness of breath over the past several months. Cardiac catheterization did reveal multivessel coronary artery disease including left main artery disease. An urgent coronary bypass was recommended. The risks, benefits, alternatives to this procedure were discussed with the patient and his family. All of their questions were answered. Consent was obtained. Of note, the patient did present to the hospital with thrombocytopenia. Hematology was consulted. Abdominal ultrasound was obtained with no significant splenomegaly or liver disease noted. He was cleared to proceed with surgery. FINDINGS: The left internal mammary artery was a good conduit with brisk flow. The saphenous vein was a good conduit. The coronary vessels were all heavily calcified. The left anterior descending artery measured 1.3 mm. The obtuse marginal artery measured 1.3 mm. The right coronary artery was heavily calcified and branches were too small for bypass. PROCEDURE IN DETAIL: The patient was taken to the operating room and placed supine on the operating table. After induction of general anesthesia, he was prepped and draped in the usual sterile fashion. Preoperative transesophageal echocardiogram revealed a preserved ejection fraction with mild mitral regurgitation. A median sternotomy was performed. The left internal mammary artery was harvested in standard fashion taking care to clip all branches. The patient's sternum was quite tight as well as his chest wall. Intravenous heparin was administered and the vessel was transected distally revealing brisk flow. Simultaneously greater saphenous vein was harvested from the left lower extremity taking care to tie all branches. The vein was an adequate conduit. A pericardial cradle was created. The ascending aorta was palpated and appeared to be soft and free of disease. Epiaortic ultrasound was performed and no significant plaque was noted in the ascending aorta. There is no significant atheromatous disease either. An arterial cannula was placed in the distal ascending aorta. A venous cannula was placed in the right atrial appendage and directed into the IVC. Both antegrade and retrograde catheters were placed as well. The patient was placed on cardiopulmonary bypass with good decompression of the heart. The aortic crossclamp was applied. Cold blood potassium cardioplegia was delivered to achieve arrest of the heart. Of note, cardioplegia was delivered every 15 to 20 minutes while the patient remained under crossclamp. I began by inspecting the inferior wall. The distal right coronary artery was palpated was heavily calcified. There was no soft spot noted. Additional branches of the inferior side of the heart were likewise identified and dissected free. These were all extremely small in diameter and not amenable to bypass. I chose not to bypass this artery as the right coronary artery was 100% completely occluded with left right collaterals noted on his cardiac catheterization. Attention was then turned to the lateral wall. The obtuse marginal artery was identified. A small arteriotomy was created. This vessel accepted a 1.0 mm probe both proximally and distally. Using saphenous vein in a reverse fashion, an end-to-side anastomosis was created. This was performed using running 7-0 Prolene suture. The graft was hemostatic and had great flow. Next, the left anterior descending artery was identified. It contained significant disease throughout its course. A soft spot was identified. A small arteriotomy was created. This vessel accepted a 1.5 mm probe both proximally and distally. Using the left internal mammary artery, an end-to-side anastomosis was created. This was performed using running 8-0 Prolene suture. The graft was hemostatic. The mammary pedicles intact down to the anterior surface of the heart. The single proximal anastomosis was then performed in an end to side fashion to the ascending aorta. This was performed using running 6-0 Prolene suture. 1 liter of warm blood was delivered in a retrograde fashion. Lidocaine and magnesium were administered as well. The aortic crossclamp was removed. The vein graft was de-aired in the standard fashion. The distal anastomoses were both inspected and appeared to be hemostatic. The retrograde catheter was removed. Temporary atrial and ventricular pacing wires were placed and brought through the skin. The patient was then weaned off cardiopulmonary bypass. He without difficulty. Follow-up transesophageal echocardiogram confirmed normal ejection fraction of along with no change in his valve pathology. Protamine was administered. There were no adverse reactions. The remaining cannulas were then removed. All surgical sites were inspected and appeared to be hemostatic. Reinforcement sutures were placed as needed. Soft tissue was then reapproximated using the ascending aorta as well as over the apex of the heart. A straight 32 [place] chest tube was placed direct into the left pleural space. Two additional straight 32 [place] chest tubes were placed and directed into the mediastinum. These secured to the skin using sutures. The sternum was then reapproximated using stainless wires in a figure of eight fashion. The remainder of the wound was closed in layers. A sterile dressing was applied. The patient appeared to tolerate the procedure well. There were no immediate complications. No blood transfusions were administered. He returned to the ICU in critical but stable condition. FABIEN
[2016-08-13 23:05] LABS: Glucose,Whole Blood 169 mg/dL (75-99)
[2016-08-14 00:10] LABS: Glucose,Whole Blood 157 mg/dL (75-99)
[2016-08-14] MEDS: CLEVIDIPINE BUTYRATE 25 MG in EMPTY BAG 1 BAG IV PRN ×5 (00:11→18:35)
[2016-08-14] MEDS: PROPOFOL 500 MG in EMPTY BAG 1 BAG IV PRN ×7 (00:31→23:25)
[2016-08-14 01:03] LABS: Glucose,Whole Blood 164 mg/dL (75-99)
[2016-08-14 02:04] LABS: Glucose,Whole Blood 163 mg/dL (75-99)
[2016-08-14 02:58] LABS: Glucose,Whole Blood 159 mg/dL (75-99)
[2016-08-14] MEDS: IPRATROPIUM-ALBUTEROL 3 ML NEB INHALATION SCH ×6 (03:26→23:36)
[2016-08-14 04:12] LABS: Glucose,Whole Blood 155 mg/dL (75-99)
[2016-08-14 05:18] LABS: Glucose,Whole Blood 148 mg/dL (75-99)
[2016-08-14 05:43] LABS: Basophils % (A) 0 %; CH 32.7; Eosinophils % (A) 0 %; HCT 36.8 % (39.0-53.0); HDW 2.55; HGB 12.9 gm/dL (13.0-17.5); Luc # (Auto) 0.13; Luc % (Auto) 1; Lymphocytes # (A) 1.2 k/uL (1.0-4.8); Lymphocytes % (A) 9 %; MCH 35.1 pg (25.0-35.0); MCHC 35.1 g/dL (31.0-37.0); MCV 99.8 fL (80.0-100.0); Macrocytosis Slight; Mean Platelet Volume 9.7; Monocytes # (A) 0.9 k/uL (0-1.0); Monocytes % (A) 7 %; Neutrophils # (A) 11.8 k/uL (1.3-7.7); Neutrophils % (A) 84 %; RBC 3.68 m/uL (4.30-5.90); RDW 14.7 % (11.5-15.5); WBC 14.1 k/uL (3.8-10.6); WBC (Perox) 14.59
[2016-08-14 06:19] LABS: ALT 47 U/L (21-72); AST 52 U/L (17-59); Alkaline Phosphatase 48 U/L (38-126); Anion Gap 14 mmol/L; Blood Urea Nitrogen 20 mg/dL (9-20); Calcium 8.8 mg/dL (8.4-10.2); Carbon Dioxide 16 mmol/L (22-30); Chloride 110 mmol/L (98-107); Glucose 148 mg/dL (74-99); Magnesium 2.1 mg/dL (1.6-2.3); Non-African American GFR(MDRD) 53 (>60 ml/min/1.73 sqM); Phosphorous 3.1 mg/dL (2.5-4.5); Potassium 4.3 mmol/L (3.5-5.1); Sodium 140 mmol/L (137-145); Total Bilirubin 1.5 mg/dL (0.2-1.3); Total Protein 5.1 g/dL (6.3-8.2)
[2016-08-14 06:34] LABS: Glucose,Whole Blood 146 mg/dL (75-99)
[2016-08-14] MEDS: INSULIN REGULAR 100 UNIT in SODIUM CHLORIDE 0.9% 100 ML IV PRN ×2 (07:25→23:10)
--- NOTE | 2016-08-14 07:54 | XR ---
EXAMINATION TYPE: XR chest 1V portable DATE OF EXAM: 08/14/2016 7:10 AM Comparison: 08/13/2016 Clinical History: 80-year-old male Post Operative Cardiac Surgery Findings: Right IJ [place] catheter with tip at the distal right main pulmonary artery. ET tube is satisfacto ry. NG tube courses below the diaphragm. Left-sided chest tube is present. No visualized pneumothorax . Mild interstitial and vascular prominence. Patchy retrocardiac opacity. Heart remains enlarged. Impression: 1. Cardiomegaly and possible mild pulmonary vascular congestion. 2. Postsurgical retrocardiac atelectasis.
[2016-08-14 07:56] LABS: Glucose,Whole Blood 141 mg/dL (75-99)
[2016-08-14] MEDS: glipiZIDE 10 MG TAB PO SCH (08:08)
[2016-08-14] MEDS: GLIMEPIRIDE 4 MG TAB PO SCH (08:08)
[2016-08-14] MEDS: MUPIROCIN 2% OINT 22 GM TUBE TOPICAL SCH ×2 (09:07→22:37)
[2016-08-14] MEDS: PANTOPRAZOLE 40 MG/10 ML VIAL IVP SCH (09:07)
[2016-08-14] MEDS: ASPIRIN 325 MG TAB PO SCH (09:07)
[2016-08-14] MEDS: DORZOLAMIDE HCL 2% DROPS 10 ML BTL LEFT EYE SCH (09:07)
[2016-08-14 09:21] LABS: Glucose,Whole Blood 124 mg/dL (75-99)
--- NOTE | 2016-08-14 09:35 | P.PN ---
Subjective 80-year-old male patient, complaining of exertional dyspnea over the past several months. The patient denied having any chest pain. 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 The patient was found to have occluded right coronary artery with collaterals filling from the left. The patient was found to have critical disease involving the left main coronary artery and critical disease involving diffuse marginal branch of circumflex and proximal LAD. Based on this, coronary artery bypass surgery was recommended. The patient was seen by cardiothoracic surgery and the tentative plan to undergo surgery on this patient is on Tuesday. The preoperative echocardiogram showed a preserved LV function with an ejection fraction of 50-55%. No evidence of any pulmonary hypertension. No evidence of any valvular abnormalities. There is evidence of hypertensive heart disease with concentric left ventricular hypertrophy. Chest x-ray shows no acute cardio pulmonary process. He has history of pulmonary embolism and DVT and the patient has been maintained on anticoagulation on outpatient basis with warfarin. On today's evaluation of 08/11/2016 the patient is stable. The patient has no specific complaints. The patient is using his incentive spirometer. The patient was found to have chronic thrombocytopenia and for that reason a hematology consultation was obtained. History of any chest pain. He remains on IV heparin. Awaiting surgery on Tuesday. A bedside spirometry is still to be done. On the patient remains stable. No other changes condition. Surgery will be done tomorrow. Pulmonary will to follow-up on this patient. His platelet counts are stable at 81,000. He remains on IV heparin. On 08/13/2016 I'm seeing this patient following his coronary bypass surgery. The patient underwent the surgery without any major complication. I discussed the case with the thoracic surgeon and the intraoperative course was essentially uncomplicated. The patient currently is intubated on mechanical ventilator. He is still sedated. He is hemodynamically stable. He is on a nitroglycerin and Cleviprex Drip for tight blood pressure control. The patient' s cardiac output is at 6.3 with an index of 2.8. PA pressures 29/17. The patient is also has his chest tubes in place with total amount of output being low at this point despite his underlying thrombocytopenia. He is also on an insulin drip at 40 units an hour for blood sugar control. Chest x-ray shows adequate expansion of both lungs and the chest tubes, ET tube and the [place]-Laya catheter in place. The blood gases showed a pH of 7.31 with a pCO2 of 48 and pO2 of 115 and it was not an FiO2 of 100% and I wean down the FiO2 down to 70% and the saturation is currently above 95%. The patient is also on assist control mode of ventilation with a PEEP of 5 and FiO2 of 70% with a tidal volume of 550. His rate is at 12. Postoperative platelet counts is at 42,000. Hemoglobin is at 10.9. The patient has not required any platelet transfusions. On 08/14/2016 the patient remains intubated on a mechanical ventilator. We failed to wean and extubate this patient yesterday because of oxygenation problems. This morning, the patient remained on assist control mode at the rate of 12, tidal volume 500, FiO2 of 60% and a PEEP of 5. The most recent blood gases showed a pH of 7.44 with a pCO2 of 24 and pO2 of 67. Chest x-ray is showing regular postsurgical changes with a mediastinal and the pleural chest tubes in place, ET tube is in a good location. The patient hemodynamically stable. He remains on a combination of nitroglycerin and Cleviprex drip for blood pressure control. His cardiac output as above 7 and the index is at 3.5. Is producing adequate amount of urine output. He remains sedated with Diprivan which is running at 30 mics. Nitroglycerin drip is running at 5 mics per minute and the Cleviprex is at 60 mg an hour. The patient is also on insulin drip at 10 units an hour. Output from the chest tubes have been 20 mL an hour. Meanwhile the patient had developed an acute kidney injury with a creatinine being up to 1.3. The bicarb level is down to 16 and the patient has a informed of non-anion gap metabolic acidosis. Objective - Vital Signs Vital signs: Vital Signs Temp 98.0 F 08/13/16 06:25 Pulse 77 08/14/16 09:00 Resp 25 H 08/14/16 09:00 BP 100/58 08/13/16 17:00 Pulse Ox 93 L 08/14/16 09:00 Intake & Output 08/13/16 08/14/16 08/14/16 18:59 06:59 18:59 Intake Total 0783.487 1219.237 202.0 Output Total 2538 1287 304 Balance -1236.626 512.237 -102.0 Intake: IV 1152 1130.0 182.5 CO/CI 230 40 Lactated Ringers 1,000 ml 200 480 120 @ 20 mls/hr IV .Q24H [facility] Rx#:[id number] Nitroglycerin-D5w Pmx 50 137.0 1.5 mg In Dextrose/Water 1 250ml.bag @ 5 MCG/MIN 1.5 mls/hr IV .Q24H PRN Rx#: [id number] Vancomycin 1,750 mg In 250 Sodium Chloride 0.9% 250 ml @ 125 mls/hr IVPB Q16H [facility] Rx#:[id number] pressure bag 33 21 Intake, IV Titration 149.374 579.237 19.5 Amount Clevidipine Butyrate 25 4.233 262.567 mg In Empty Bag 1 bag @ 1 MG/HR 2 mls/hr IV .Q24H PRN Rx#:[id number] Insulin Regular 100 unit 28.933 72.067 19.5 In Sodium Chloride 0.9% 100 ml @ Titrate IV .Q0M PRN Rx#:[id number] Nitroglycerin-D5w Pmx 50 16.208 mg In Dextrose/Water 1 250ml.bag @ 5 MCG/MIN 1.5 mls/hr IV .Q24H PRN Rx#: [id number] Propofol 500 mg In Empty 100 244.603 Bag 1 bag @ Titrate IV . Q0M PRN Rx#:[id number] Oral 90 Output: Chest Tube Drainage 135 443 194 Chest Tube Bilateral 90 254 130 Mediastinal Chest Tube Left Lateral 45 169 64 Chest Chest Tube Left Mid- 20 Axillary Chest Gastric Drainage 350 Drainage 30 0 Left Calf 30 0 Urine 873 494 110 Estimated Blood Loss 1500 Other: Voiding Method Indwelling Catheter Indwelling Catheter # Bowel Movements 0 ABP, PAP, CO, CI - Last Documented Arterial Blood Pressure 113/39 Pulmonary Artery Pressure 27/13 Cardiac Output 7.8 Cardiac Index 3.5 - Exam The patient is intubated on a mechanical ventilator. He is sedated with Diprivan and calm and comfortable. Orogastric and orotracheal tube in place. The patient has a right IJ [place]-Laya catheter Cordis in place.Head exam was generally normal. There was no scleral icterus or corneal arcus. Mucous membranes were moist.Neck was supple and without jugular venous distension, thyromegaly, or carotid bruits. Carotids were easily palpable bilaterally. There was no adenopathy. Lung sounds are equal and symmetrical breath sounds without any rhonchi or wheezes or any crackles. All of the chest tubes are all in place. Heart sounds are regular, positive S1-S2. No cervical murmurs appreciated. Sternum stable clean and intact.Abdominal exam revealed normal bowel sounds. The abdomen was soft, non-tender, and without masses, organomegaly , or appreciable enlargement of the abdominal aorta. Extremities show diminished pulses. There is no cyanosis or clubbing. All of the surgical wound sites are dry clean and intact at this point. Neurologically the patient remains sedated. - Labs CBC & Chem 7: 08/14/16 05:20 08/14/16 05:20 Labs: Abnormal Lab Results - Last 24 Hours (Table) 08/12/16 08/12/16 08/13/16 Range/Units 05:59 08:44 10:42 WBC (3.8-10.6) k/uL RBC (4.30-5.90) m/uL Hgb (13.0-17.5) gm/dL Hct (39.0-53.0) % MCH (25.0-35.0) pg Plt Count (150-450) k/uL Neutrophils # (1.3-7.7) k/uL Lymphocytes # (1.0-4.8) k/uL PT (9.0-12.0) sec ABG pH (7.35-7.45) ABG pCO2 (35-45) mmHg ABG pO2 (83-108) mmHg ABG Total CO2 (19-24) mmol/L ABG O2 Saturation (94-97) % Chloride (98-107) mmol/L Carbon Dioxide (22-30) mmol/L Creatinine (0.66-1.25) mg/dL Glucose (74-99) mg/dL POC Glucose (mg/dL) 207 H (75-99) mg/dL Calcium (8.4-10.2) mg/dL Magnesium (1.6-2.3) mg/dL Total Bilirubin (0.2-1.3) mg/dL Total Protein (6.3-8.2) g/dL Albumin (3.5-5.0) g/dL RBC Folate 814 H (280 - 791) ng/mL [facility] [place] LC, Quant 2.06 H (0.33 - 1.94) mg/dL Crossmatch See Detail 08/13/16 08/13/16 08/13/16 Range/Units 11:32 12:01 12:38 WBC (3.8-10.6) k/uL RBC (4.30-5.90) m/uL Hgb (13.0-17.5) gm/dL Hct (39.0-53.0) % MCH (25.0-35.0) pg Plt Count (150-450) k/uL Neutrophils # (1.3-7.7) k/uL Lymphocytes # (1.0-4.8) k/uL PT (9.0-12.0) sec ABG pH (7.35-7.45) ABG pCO2 (35-45) mmHg ABG pO2 (83-108) mmHg ABG Total CO2 (19-24) mmol/L ABG O2 Saturation (94-97) % Chloride (98-107) mmol/L Carbon Dioxide (22-30) mmol/L Creatinine (0.66-1.25) mg/dL Glucose (74-99) mg/dL POC Glucose (mg/dL) 204 H 264 H 253 H (75-99) mg/dL Calcium (8.4-10.2) mg/dL Magnesium (1.6-2.3) mg/dL Total Bilirubin (0.2-1.3) mg/dL Total Protein (6.3-8.2) g/dL Albumin (3.5-5.0) g/dL RBC Folate (280 - 791) ng/mL [facility] [place] LC, Quant (0.33 - 1.94) mg/dL Crossmatch 08/13/16 08/13/16 08/13/16 Range/Units 13:11 14:06 15:00 WBC (3.8-10.6) k/uL RBC (4.30-5.90) m/uL Hgb (13.0-17.5) gm/dL Hct (39.0-53.0) % MCH (25.0-35.0) pg Plt Count (150-450) k/uL Neutrophils # (1.3-7.7) k/uL Lymphocytes # (1.0-4.8) k/uL PT 14.5 H (9.0-12.0) sec ABG pH (7.35-7.45) ABG pCO2 (35-45) mmHg ABG pO2 (83-108) mmHg ABG Total CO2 (19-24) mmol/L ABG O2 Saturation (94-97) % Chloride (98-107) mmol/L Carbon Dioxide (22-30) mmol/L Creatinine (0.66-1.25) mg/dL Glucose (74-99) mg/dL POC Glucose (mg/dL) 263 H 209 H (75-99) mg/dL Calcium (8.4-10.2) mg/dL Magnesium (1.6-2.3) mg/dL Total Bilirubin (0.2-1.3) mg/dL Total Protein (6.3-8.2) g/dL Albumin (3.5-5.0) g/dL RBC Folate (280 - 791) ng/mL [facility] [place] LC, Quant (0.33 - 1.94) mg/dL Crossmatch 08/13/16 08/13/16 08/13/16 Range/Units 15:00 15:00 15:04 WBC (3.8-10.6) k/uL RBC 3.21 L (4.30-5.90) m/uL Hgb 10.9 L (13.0-17.5) gm/dL Hct 31.4 L (39.0-53.0) % MCH (25.0-35.0) pg Plt Count 42 L* (150-450) k/uL Neutrophils # (1.3-7.7) k/uL Lymphocytes # 0.6 L (1.0-4.8) k/uL PT (9.0-12.0) sec ABG pH (7.35-7.45) ABG pCO2 (35-45) mmHg ABG pO2 (83-108) mmHg ABG Total CO2 (19-24) mmol/L ABG O2 Saturation (94-97) % Chloride 111 H (98-107) mmol/L Carbon Dioxide 21 L (22-30) mmol/L Creatinine (0.66-1.25) mg/dL Glucose 171 H (74-99) mg/dL POC Glucose (mg/dL) 177 H (75-99) mg/dL Calcium 8.3 L (8.4-10.2) mg/dL Magnesium 2.5 H (1.6-2.3) mg/dL Total Bilirubin 1.5 H (0.2-1.3) mg/dL Total Protein 4.4 L (6.3-8.2) g/dL Albumin 2.5 L (3.5-5.0) g/dL RBC Folate (280 - 791) ng/mL [facility] [place] LC, Quant (0.33 - 1.94) mg/dL Crossmatch 08/13/16 08/13/16 08/13/16 Range/Units 15:50 16:43 18:10 WBC (3.8-10.6) k/uL RBC 3.60 L (4.30-5.90) m/uL Hgb 12.0 L (13.0-17.5) gm/dL Hct 35.8 L (39.0-53.0) % MCH (25.0-35.0) pg Plt Count 71 L D (150-450) k/uL Neutrophils # (1.3-7.7) k/uL Lymphocytes # (1.0-4.8) k/uL PT (9.0-12.0) sec ABG pH 7.31 L (7.35-7.45) ABG pCO2 48 H (35-45) mmHg ABG pO2 115 H (83-108) mmHg ABG Total CO2 25 H (19-24) mmol/L ABG O2 Saturation 98.0 H (94-97) % Chloride (98-107) mmol/L Carbon Dioxide (22-30) mmol/L Creatinine (0.66-1.25) mg/dL Glucose (74-99) mg/dL POC Glucose (mg/dL) 130 H (75-99) mg/dL Calcium (8.4-10.2) mg/dL Magnesium (1.6-2.3) mg/dL Total Bilirubin (0.2-1.3) mg/dL Total Protein (6.3-8.2) g/dL Albumin (3.5-5.0) g/dL RBC Folate (280 - 791) ng/mL [facility] [place] LC, Quant (0.33 - 1.94) mg/dL Crossmatch 08/13/16 08/13/16 08/13/16 Range/Units 18:10 18:12 19:09 WBC (3.8-10.6) k/uL RBC (4.30-5.90) m/uL Hgb (13.0-17.5) gm/dL Hct (39.0-53.0) % MCH (25.0-35.0) pg Plt Count (150-450) k/uL Neutrophils # (1.3-7.7) k/uL Lymphocytes # (1.0-4.8) k/uL PT 12.8 H (9.0-12.0) sec ABG pH (7.35-7.45) ABG pCO2 (35-45) mmHg ABG pO2 (83-108) mmHg ABG Total CO2 (19-24) mmol/L ABG O2 Saturation (94-97) % Chloride (98-107) mmol/L Carbon Dioxide (22-30) mmol/L Creatinine (0.66-1.25) mg/dL Glucose (74-99) mg/dL POC Glucose (mg/dL) 125 H 136 H (75-99) mg/dL Calcium (8.4-10.2) mg/dL Magnesium (1.6-2.3) mg/dL Total Bilirubin (0.2-1.3) mg/dL Total Protein (6.3-8.2) g/dL Albumin (3.5-5.0) g/dL RBC Folate (280 - 791) ng/mL [facility] [place] LC, Quant (0.33 - 1.94) mg/dL Crossmatch 08/13/16 08/13/16 08/13/16 Range/Units 20:03 21:19 21:20 WBC (3.8-10.6) k/uL RBC 3.63 L (4.30-5.90) m/uL Hgb 12.4 L (13.0-17.5) gm/dL Hct 36.1 L (39.0-53.0) % MCH (25.0-35.0) pg Plt Count 62 L (150-450) k/uL Neutrophils # (1.3-7.7) k/uL Lymphocytes # 0.9 L (1.0-4.8) k/uL PT (9.0-12.0) sec ABG pH (7.35-7.45) ABG pCO2 (35-45) mmHg ABG pO2 (83-108) mmHg ABG Total CO2 (19-24) mmol/L ABG O2 Saturation (94-97) % Chloride (98-107) mmol/L Carbon Dioxide (22-30) mmol/L Creatinine (0.66-1.25) mg/dL Glucose (74-99) mg/dL POC Glucose (mg/dL) 162 H 164 H (75-99) mg/dL Calcium (8.4-10.2) mg/dL Magnesium (1.6-2.3) mg/dL Total Bilirubin (0.2-1.3) mg/dL Total Protein (6.3-8.2) g/dL Albumin (3.5-5.0) g/dL RBC Folate (280 - 791) ng/mL [facility] [place] LC, Quant (0.33 - 1.94) mg/dL Crossmatch 08/13/16 08/13/16 08/13/16 Range/Units 21:20 21:20 22:10 WBC (3.8-10.6) k/uL RBC (4.30-5.90) m/uL Hgb (13.0-17.5) gm/dL Hct (39.0-53.0) % MCH (25.0-35.0) pg Plt Count (150-450) k/uL Neutrophils # (1.3-7.7) k/uL Lymphocytes # (1.0-4.8) k/uL PT 12.5 H (9.0-12.0) sec ABG pH (7.35-7.45) ABG pCO2 (35-45) mmHg ABG pO2 (83-108) mmHg ABG Total CO2 (19-24) mmol/L ABG O2 Saturation (94-97) % Chloride 110 H (98-107) mmol/L Carbon Dioxide 21 L (22-30) mmol/L Creatinine (0.66-1.25) mg/dL Glucose 170 H (74-99) mg/dL POC Glucose (mg/dL) 170 H (75-99) mg/dL Calcium (8.4-10.2) mg/dL Magnesium (1.6-2.3) mg/dL Total Bilirubin (0.2-1.3) mg/dL Total Protein (6.3-8.2) g/dL Albumin (3.5-5.0) g/dL RBC Folate (280 - 791) ng/mL [facility] [place] LC, Quant (0.33 - 1.94) mg/dL Crossmatch 08/13/16 08/14/16 08/14/16 Range/Units 23:04 00:08 01:01 WBC (3.8-10.6) k/uL RBC (4.30-5.90) m/uL Hgb (13.0-17.5) gm/dL Hct (39.0-53.0) % MCH (25.0-35.0) pg Plt Count (150-450) k/uL Neutrophils # (1.3-7.7) k/uL Lymphocytes # (1.0-4.8) k/uL PT (9.0-12.0) sec ABG pH (7.35-7.45) ABG pCO2 (35-45) mmHg ABG pO2 (83-108) mmHg ABG Total CO2 (19-24) mmol/L ABG O2 Saturation (94-97) % Chloride (98-107) mmol/L Carbon Dioxide (22-30) mmol/L Creatinine (0.66-1.25) mg/dL Glucose (74-99) mg/dL POC Glucose (mg/dL) 169 H 157 H 164 H (75-99) mg/dL Calcium (8.4-10.2) mg/dL Magnesium (1.6-2.3) mg/dL Total Bilirubin (0.2-1.3) mg/dL Total Protein (6.3-8.2) g/dL Albumin (3.5-5.0) g/dL RBC Folate (280 - 791) ng/mL [facility] [place] LC, Quant (0.33 - 1.94) mg/dL Crossmatch 08/14/16 08/14/16 08/14/16 Range/Units 02:02 02:57 04:10 WBC (3.8-10.6) k/uL RBC (4.30-5.90) m/uL Hgb (13.0-17.5) gm/dL Hct (39.0-53.0) % MCH (25.0-35.0) pg Plt Count (150-450) k/uL Neutrophils # (1.3-7.7) k/uL Lymphocytes # (1.0-4.8) k/uL PT (9.0-12.0) sec ABG pH (7.35-7.45) ABG pCO2 (35-45) mmHg ABG pO2 (83-108) mmHg ABG Total CO2 (19-24) mmol/L ABG O2 Saturation (94-97) % Chloride (98-107) mmol/L Carbon Dioxide (22-30) mmol/L Creatinine (0.66-1.25) mg/dL Glucose (74-99) mg/dL POC Glucose (mg/dL) 163 H 159 H 155 H (75-99) mg/dL Calcium (8.4-10.2) mg/dL Magnesium (1.6-2.3) mg/dL Total Bilirubin (0.2-1.3) mg/dL Total Protein (6.3-8.2) g/dL Albumin (3.5-5.0) g/dL RBC Folate (280 - 791) ng/mL [facility] [place] LC, Quant (0.33 - 1.94) mg/dL Crossmatch 08/14/16 08/14/16 08/14/16 Range/Units 05:16 05:20 05:20 WBC 14.1 H (3.8-10.6) k/uL RBC 3.68 L (4.30-5.90) m/uL Hgb 12.9 L (13.0-17.5) gm/dL Hct 36.8 L (39.0-53.0) % MCH 35.1 H (25.0-35.0) pg Plt Count 81 L (150-450) k/uL Neutrophils # 11.8 H (1.3-7.7) k/uL Lymphocytes # (1.0-4.8) k/uL PT (9.0-12.0) sec ABG pH (7.35-7.45) ABG pCO2 (35-45) mmHg ABG pO2 (83-108) mmHg ABG Total CO2 (19-24) mmol/L ABG O2 Saturation (94-97) % Chloride 110 H (98-107) mmol/L Carbon Dioxide 16 L (22-30) mmol/L Creatinine 1.30 H (0.66-1.25) mg/dL Glucose 148 H (74-99) mg/dL POC Glucose (mg/dL) 148 H (75-99) mg/dL Calcium (8.4-10.2) mg/dL Magnesium (1.6-2.3) mg/dL Total Bilirubin 1.5 H (0.2-1.3) mg/dL Total Protein 5.1 L (6.3-8.2) g/dL Albumin 2.9 L (3.5-5.0) g/dL RBC Folate (280 - 791) ng/mL [facility] [place] LC, Quant (0.33 - 1.94) mg/dL Crossmatch 08/14/16 08/14/16 08/14/16 Range/Units 06:32 07:54 09:19 WBC (3.8-10.6) k/uL RBC (4.30-5.90) m/uL Hgb (13.0-17.5) gm/dL Hct (39.0-53.0) % MCH (25.0-35.0) pg Plt Count (150-450) k/uL Neutrophils # (1.3-7.7) k/uL Lymphocytes # (1.0-4.8) k/uL PT (9.0-12.0) sec ABG pH (7.35-7.45) ABG pCO2 (35-45) mmHg ABG pO2 (83-108) mmHg ABG Total CO2 (19-24) mmol/L ABG O2 Saturation (94-97) % Chloride (98-107) mmol/L Carbon Dioxide (22-30) mmol/L Creatinine (0.66-1.25) mg/dL Glucose (74-99) mg/dL POC Glucose (mg/dL) 146 H 141 H 124 H (75-99) mg/dL Calcium (8.4-10.2) mg/dL Magnesium (1.6-2.3) mg/dL Total Bilirubin (0.2-1.3) mg/dL Total Protein (6.3-8.2) g/dL Albumin (3.5-5.0) g/dL RBC Folate (280 - 791) ng/mL [facility] [place] LC, Quant (0.33 - 1.94) mg/dL Crossmatch Assessment and Plan Plan: Assessment 1 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 The patient underwent carotid bypass surgery and currently is postop day #1. 2 postoperative hypertension. He is hemodynamically stable. He has postoperative hypertension for which is on a combination of nitroglycerin and Cleviprex drip. The patient has adequate cardiac output. Urine output is also adequate. Chest tubes are relatively inactive in terms of his drainage. 2 diabetes mellitus on insulin drip for blood sugar control 3 postoperative hypertension currently on a nitroglycerin drip and Cleviprex 4 post thoracotomy respiratory failure, expected, currently the oxygenation remains borderline with a pO2 of 67 while being on a PEEP of 5 with an FiO2 of 60%. Chest x-ray findings are stable. Hemodynamically stable. Hemodynamic diameters are all stable. 5 previous history of DVT and pulmonary embolism , maintained on warfarin outpatient basis, currently on no anti-coagulation most recent INR is at 1.5 6 thrombocytopenia him a stable with a platelet count, without evidence of any acute bleeding 7 acute kidney injury, creatinine is up to 1.3 8 non-anion gap metabolic acidosis 9 respiratory alkalosis, partly compensatory. Plan Continue vent support. Keep the patient on assist control mode of ventilation. Increase the tidal volume at 600 which has helped this patient up at the rate below 30. The patient has a minute ventilation of around 17-18 L/m. Chest x- ray was reviewed. Hemodynamically stable. We'll suggest putting this patient on a bicarb drip at 75 seen in our to optimize his at least status and improve his metabolic acidosis. We will repeat the blood gases within the next few hours and see if there is any room for further weaning the FiO2. Once the oxidation improves, the patient will be subjected to further weaning off the mechanical ventilator. We'll continue to follow make further recommendations accordingly. Meanwhile, continue the Cleviprex drip, wean off the nitroglycerin drip, monitor the output from the chest tubes, we'll continue to follow make further recommendations accordingly. Critical care evaluation. More than 30 minutes. Time with Patient: Greater than 30
[2016-08-14 09:51] LABS: ABG HCO3 16 mmol/L (21-25); ABG PCO2 24 mmHg (35-45); ABG PH 7.44 (7.35-7.45); ABG PO2 67 mmHg (83-108); ABG TCO2 16 mmol/L (19-24)
[2016-08-14 09:52] LABS: ABG Base Excess -7.2 mmol/L
[2016-08-14] MEDS: METOPROLOL TARTRATE 25 MG TAB PO SCH ×2 (10:02→22:36)
[2016-08-14] MEDS ORDERED: PROPOFOL 50 ML IV ONE (10:03)
--- NOTE | 2016-08-14 10:28 | PN ---
DATE OF SERVICE: 08/13/2016 PRESENTING COMPLAINT: Status post CABG. INTERVAL HISTORY: This patient was seen and examined by me yesterday on 08/13/16 in the ICU. Patient is status post CABG and is on a ventilator with FiO2 of 70 and PEEP of 5. Telemetry shows sinus rhythm. Patient's drips include lactated Ringer's, IV propofol. He also did get Amicar. Patient also was on IV clevidipine, IV insulin drip, intubated and IV Levophed. No family is at the bedside. Patient has 1 mediastinal and [address] Review of systems cannot be done. Patient is intubated. Current medications are reviewed; as above. On examination, pulse 75, respiration 19, blood pressure 126/54, pulse ox 94% on ventilator. GENERAL APPEARANCE: Lying in bed. Intubated. EYES: Pupils equal. Conjunctivae normal. ENT: Endotracheal tube in place. NECK: JVD unable to assess. Mass not palpable. RESPIRATORY: Effort normal. LUNGS: Diminished breath sounds. CARDIOVASCULAR: First and second sounds normal. No edema. CHEST WALL: Patient has 2 chest tubes and 1 mediastinal tube. ABDOMEN: Soft, nontender. Liver and spleen not palpable. NEUROLOGICAL: Pupils are equal. Plantars are equivocal. INVESTIGATIONS: White count 8.7, hemoglobin 12.4, platelets 62. Potassium 4.6. Accu-Cheks are noted. ASSESSMENT: 1. Status post coronary artery bypass graft for triple-vessel coronary artery disease. 2. Coronary artery disease. 3. Diabetes mellitus, type 2, on oral hypoglycemic. 4. Chronic deep venous thrombosis, pulmonary embolism, on Coumadin long-term. 5. Hyperlipidemia. 6. 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 7. Benign prostrate hypertrophy. 8. 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 9. Postoperative ventilator support. PLAN: Continue current medication and treatment plan. Patient will be closely followed.
[2016-08-14] MEDS: WATER FOR INJECTION, STERILE 1,000 ML with SODIUM ACETATE 150 MEQ IV SCH ×2 (10:30)
[2016-08-14 10:45] LABS: Glucose,Whole Blood 124 mg/dL (75-99)
[2016-08-14 11:01] LABS: Glucose,Whole Blood 130 mg/dL (75-99)
--- NOTE | 2016-08-14 11:02 | P.PN ---
Progress Note - Text CV Surgery Nursing POD: #1 coronary artery bypass grafting 2 utilizing the left internal mammary artery to left anterior descending coronary artery and reverse saphenous vein graft to the obtuse marginal branch. Endoscopic vein harvesting of the left greater saphenous vein. Epi-aortic ultrasonography and transesophageal echocardiogram Patient sedated on mechanical ventilation, no distress noted. Vital Signs: Vital Signs - 24 hr 08/13/16 08/13/16 08/13/16 15:15 15:30 15:45 Pulse Rate 86 84 84 Respiratory 12 15 12 Rate Blood Pressure 100/58 100/58 100/58 O2 Sat by Pulse 98 99 98 Oximetry 08/13/16 08/13/16 08/13/16 16:00 16:02 16:15 Pulse Rate 84 84 82 Respiratory 13 12 Rate Blood Pressure 100/58 100/58 O2 Sat by Pulse 97 97 Oximetry 08/13/16 08/13/16 08/13/16 16:30 16:45 17:00 Pulse Rate 84 85 86 Respiratory 12 12 12 Rate Blood Pressure 100/58 100/58 100/58 O2 Sat by Pulse 95 94 L 94 L Oximetry 08/13/16 08/13/16 08/13/16 17:15 17:30 17:45 Pulse Rate 87 87 87 Respiratory 16 15 17 Rate Blood Pressure O2 Sat by Pulse 93 L 93 L 94 L Oximetry 08/13/16 08/13/16 08/13/16 18:00 18:15 18:30 Pulse Rate 86 84 82 Respiratory 17 17 16 Rate Blood Pressure O2 Sat by Pulse 94 L 94 L 94 L Oximetry 08/13/16 08/13/16 08/13/16 18:45 19:00 19:15 Pulse Rate 78 81 81 Respiratory 17 18 18 Rate Blood Pressure O2 Sat by Pulse 93 L 93 L 92 L Oximetry 08/13/16 08/13/16 08/13/16 19:30 19:41 19:45 Pulse Rate 80 81 77 Respiratory 12 17 Rate Blood Pressure O2 Sat by Pulse 92 L 94 L Oximetry 08/13/16 08/13/16 08/13/16 20:00 20:01 20:15 Pulse Rate 76 77 75 Respiratory 14 19 Rate Blood Pressure O2 Sat by Pulse 95 94 L Oximetry 08/13/16 08/13/16 08/13/16 20:30 20:45 21:00 Pulse Rate 76 88 77 Respiratory 20 20 21 Rate Blood Pressure O2 Sat by Pulse 93 L 93 L 94 L Oximetry 08/13/16 08/13/16 08/13/16 21:15 21:30 21:45 Pulse Rate 74 79 69 Respiratory 19 13 21 Rate Blood Pressure O2 Sat by Pulse 93 L 93 L 93 L Oximetry 08/13/16 08/13/16 08/13/16 22:00 22:15 22:30 Pulse Rate 72 72 72 Respiratory 14 12 12 Rate Blood Pressure O2 Sat by Pulse 93 L 93 L 90 L Oximetry 08/13/16 08/13/16 08/13/16 22:45 23:00 23:15 Pulse Rate 72 71 70 Respiratory 12 12 12 Rate Blood Pressure O2 Sat by Pulse 91 L 91 L 91 L Oximetry 08/13/16 08/13/16 08/13/16 23:30 23:43 23:45 Pulse Rate 71 78 71 Respiratory 12 23 Rate Blood Pressure O2 Sat by Pulse 91 L 90 L Oximetry 08/14/16 08/14/16 08/14/16 00:00 00:15 00:24 Pulse Rate 76 75 77 Respiratory 22 20 Rate Blood Pressure O2 Sat by Pulse 92 L 93 L Oximetry 08/14/16 08/14/16 08/14/16 00:30 00:45 01:00 Pulse Rate 77 78 76 Respiratory 25 H 25 H 25 H Rate Blood Pressure O2 Sat by Pulse 90 L 89 L 90 L Oximetry 08/14/16 08/14/16 08/14/16 01:15 01:30 01:45 Pulse Rate 82 83 78 Respiratory 27 H 26 H 27 H Rate Blood Pressure O2 Sat by Pulse 91 L 91 L 91 L Oximetry 08/14/16 08/14/16 08/14/16 02:00 02:15 02:30 Pulse Rate 80 82 78 Respiratory 26 H 25 H 25 H Rate Blood Pressure O2 Sat by Pulse 92 L 91 L 92 L Oximetry 08/14/16 08/14/16 08/14/16 02:45 03:00 03:15 Pulse Rate 80 82 81 Respiratory 23 24 25 H Rate Blood Pressure O2 Sat by Pulse 92 L 93 L 93 L Oximetry 08/14/16 08/14/16 08/14/16 03:30 03:31 03:43 Pulse Rate 81 76 81 Respiratory 26 H Rate Blood Pressure O2 Sat by Pulse 92 L Oximetry 05/08/14/16 08/14/16 03:45 04:00 04:15 Pulse Rate 79 83 87 Respiratory 26 H 31 H 27 H Rate Blood Pressure O2 Sat by Pulse 93 L 92 L 92 L Oximetry 08/14/16 08/14/16 08/14/16 04:30 05:00 05:30 Pulse Rate 81 93 85 Respiratory 29 H 30 H 29 H Rate Blood Pressure O2 Sat by Pulse 92 L 92 L 93 L Oximetry 08/14/16 08/14/16 08/14/16 06:00 06:30 07:00 Pulse Rate 97 87 95 Respiratory 29 H 30 H 31 H Rate Blood Pressure O2 Sat by Pulse 92 L 93 L 91 L Oximetry 08/14/16 08/14/16 08/14/16 08:00 09:00 10:00 Pulse Rate 85 77 75 Respiratory 30 H 25 H 23 Rate Blood Pressure O2 Sat by Pulse 92 L 93 L 94 L Oximetry ABP, PAP, CO, CI - Last 8 Hours Arterial Blood Pressure 116/42 Arterial Blood Pressure 113/39 Arterial Blood Pressure 121/41 Arterial Blood Pressure 117/39 Arterial Blood Pressure 128/42 Arterial Blood Pressure 150/41 Arterial Blood Pressure 139/46 Arterial Blood Pressure 142/45 Arterial Blood Pressure 135/44 Arterial Blood Pressure 118/48 Arterial Blood Pressure 136/44 Arterial Blood Pressure 130/45 Arterial Blood Pressure 136/48 Arterial Blood Pressure 131/52 Arterial Blood Pressure 137/49 Pulmonary Artery Pressure 26/14 Pulmonary Artery Pressure 27/13 Pulmonary Artery Pressure 25/13 Pulmonary Artery Pressure 26/11 Pulmonary Artery Pressure 26/12 Pulmonary Artery Pressure 30/11 Pulmonary Artery Pressure 33/17 Pulmonary Artery Pressure 32/14 Pulmonary Artery Pressure 34/14 Pulmonary Artery Pressure 31/16 Pulmonary Artery Pressure 35/20 Pulmonary Artery Pressure 30/14 Pulmonary Artery Pressure 30/17 Pulmonary Artery Pressure 30/15 Pulmonary Artery Pressure 34/16 Cardiac Output 7.8 Cardiac Output 7.8 Cardiac Output 8.4 Cardiac Output 8.4 Cardiac Output 7.9 Cardiac Output 7.9 Cardiac Output 7.9 Cardiac Output 7.9 Cardiac Output 7.9 Cardiac Output 7.9 Cardiac Output 8.6 Cardiac Output 8.6 Cardiac Output 8.6 Cardiac Output 8.6 Cardiac Output 6.1 Cardiac Index 3.5 Cardiac Index 3.7 Cardiac Index 3.5 Cardiac Index 3.8 Labs: Short CBC 08/13/16 08/13/16 08/13/16 Range/Units 15:00 18:10 21:20 WBC 6.1 8.7 8.7 (3.8-10.6) k/uL Hgb 10.9 L 12.0 L 12.4 L (13.0-17.5) gm/dL Hct 31.4 L 35.8 L 36.1 L (39.0-53.0) % Plt Count 42 L* 71 L D 62 L (150-450) k/uL Neutrophils # 5.1 6.8 7.1 (1.3-7.7) k/uL 08/14/16 Range/Units 05:20 WBC 14.1 H (3.8-10.6) k/uL Hgb 12.9 L (13.0-17.5) gm/dL Hct 36.8 L (39.0-53.0) % Plt Count 81 L (150-450) k/uL Neutrophils # 11.8 H (1.3-7.7) k/uL BMP 08/13/16 08/13/16 08/14/16 15:00 21:20 05:20 Sodium 140 139 140 Potassium 4.2 4.6 4.3 Chloride 111 H 110 H 110 H Carbon Dioxide 21 L 21 L 16 L BUN 15 18 20 Creatinine 1.00 1.00 1.30 H Glucose 171 H 170 H 148 H Calcium 8.3 L 8.7 8.8 Liver Function 08/13/16 08/14/16 Range/Units 15:00 05:20 Total Bilirubin 1.5 H 1.5 H (0.2-1.3) mg/dL AST 42 52 (17-59) U/L ALT 48 47 (21-72) U/L Alkaline Phosphatase 45 48 (38-126) U/L Albumin 2.5 L 2.9 L (3.5-5.0) g/dL IV Fluids: Nitroglycerin drip at 5 mcg/m, clevidipine drip at 16 mg per hour, propofol at 30 mcg/kg/m, insulin at 9 units per hour. Cardiac output: 7.8 L/m Cardiac index: 3.5 L/m Pulmonary artery pressures: 24 over 13 mmHg CVP: 9 mmHg Lungs: Respirations are even and nonlabored, lungs essentially clear O2 sat: 94% Heart: S1S2, regular rate and rhythm, bedside telemetry shows a normal sinus rhythm with a rate of 76 Sternum stable, chest incision clean with silverlon dressing clean and dry. Abdomen: Soft, Positive bowel sounds present in all 4 quadrants. CBGs: 136-177 mg/dL U/O: Thornton catheter is draining adequate amounts of urine Chest Tubes: Left pleural chest tube and mediastinal chest tubes without visible air leak and with minimal drainage Intake & Output 08/12/16 08/13/16 08/14/16 08/15/16 06:59 06:59 06:59 06:59 Intake Total 1380 1248 3100.611 311.0 Output Total 3825 376 Balance 1380 1248 -724.389 -65.0 Weight 109.5 kg 109.1 kg Plan: Status post CABG 2 day #1 Ventilator management per pulmonary service. Wean from ventilator when tolerating. Watch renal status closely.
[2016-08-14] MEDS ORDERED: HYDROcodone/APAP 5-325MG 1 EACH TAB PO PRN (11:47)
[2016-08-14] MEDS ORDERED: ACETAMINOPHEN TAB 325 MG TAB PO PRN (11:48)
[2016-08-14] MEDS ORDERED: METOPROLOL TARTRATE 12.5 MG TAB PO SCH (11:48)
[2016-08-14] MEDS ORDERED: BISACODYL 10 MG SUPP RECTAL PRN (11:49)
[2016-08-14] MEDS ORDERED: MAGNESIUM HYDROXIDE 2,400 MG/10 ML CUP PO PRN (11:49)
[2016-08-14] MEDS: ATORVASTATIN 40 MG TAB PO SCH (12:00)
[2016-08-14 12:30] LABS: Glucose,Whole Blood 134 mg/dL (75-99)
[2016-08-14 13:18] LABS: ABG PCO2 26 mmHg (35-45); ABG PH 7.48 (7.35-7.45)
[2016-08-14 13:18] LABS: Glucose,Whole Blood 128 mg/dL (75-99)
[2016-08-14 13:19] LABS: ABG HCO3 19 mmol/L (21-25); ABG PO2 82 mmHg (83-108); ABG TCO2 20 mmol/L (19-24)
[2016-08-14] MEDS: VANCOMYCIN 1,750 MG in SODIUM CHLORIDE 0.9% 250 ML IVPB SCH (13:26)
[2016-08-14 15:15] LABS: Glucose,Whole Blood 120 mg/dL (75-99)
[2016-08-14 16:57] LABS: Glucose,Whole Blood 111 mg/dL (75-99)
--- NOTE | 2016-08-14 17:55 | PN ---
Mr. Michele underwent bypass surgery. He is still intubated. His breath sounds are rhonchorous bilaterally. He had coronary artery bypass grafting x2 ( ) left internal mammary to the LAD and reverse vein graft to the obtuse marginal He has known severe triple-vessel coronary artery disease with preserved LV systolic function. He is currently intubated on the ventilator. He failed weaning protocol. On examination, he is afebrile. Pulse is in the 70s. Blood pressure 100/58 mmHg. IMPRESSION: Coronary artery disease, status post coronary artery bypass grafting, intubated at this time. An attempt at weaning is being made today. In terms of his cardiac medications, he is back on aspirin 325 mg p.o. daily, atorvastatin 40 mg daily, and metoprolol 25 mg twice daily. Continue current management.
[2016-08-14 17:59] LABS: Glucose,Whole Blood 123 mg/dL (75-99)
[2016-08-14 18:18] LABS: ABG Base Excess -2.3 mmol/L; ABG HCO3 20 mmol/L (21-25); ABG PCO2 25 mmHg (35-45); ABG PH 7.52 (7.35-7.45); ABG PO2 57 mmHg (83-108); ABG TCO2 21 mmol/L (19-24)
[2016-08-14] MEDS: MORPHINE SULFATE 2 MG/ML SYRINGE IVP PRN (18:25)
[2016-08-14] MEDS ORDERED: ACETAMINOPHEN IV (For NPO) 1,000 MG in EMPTY BAG 1 BAG IVPB ONE (18:30)
--- NOTE | 2016-08-14 18:49 | PN ---
DATE OF SERVICE: 08/14/2016 PRESENTING COMPLAINT: Status post CABG This is a patient who is status post CABG x2 and is on the ventilator with an FiO2 of 50% and PEEP of 5. Telemetry shows sinus rhythm. Patient's drips include lactated Ringer's IV, propofol, nitroglycerin, and insulin. Family was at the bedside. Patient has one mediastinal and [address] Review of systems cannot be done. Patient is intubated. Current medications are reviewed as above. PHYSICAL EXAMINATION: VITAL SIGNS: Temperature ( ) pulse 72, blood pressure 129/48, respirations 16, oxygen saturation 97% on mechanical ventilation FiO2 of 50%. GENERAL APPEARANCE: Lying in bed, intubated. EYES: Pupils equal. Conjunctivae normal. ENT endotracheal tube in place. NECK: JVD unable to assess. Mass not palpable. Respiratory effort normal. LUNGS: Diminished breath sounds. CARDIOVASCULAR: First and second sounds normal, no edema. Chest wall patient has 2 chest tubes and one mediastinal tube. ABDOMEN: Soft, nontender. Liver and spleen not palpable. NEUROLOGIC: Pupils are equal. Plantars equivocal. INVESTIGATIONS: White blood cell count 14.1, hemoglobin 12.9, platelets 81. Sodium 140, potassium 4.3, BUN 20, creatinine 1.30. Chest x-ray cardiomegaly, and possible mild pulmonary vascular congestion with postsurgical retrocardiac atelectasis. ASSESSMENT: 1. 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 2. Coronary artery disease. 3. Diabetes mellitus, type II on oral hypoglycemics. 4. 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 5. Hyperlipidemia. 6. Primary osteoarthritis of multiple joints bilaterally. 7. Benign prosthetic hypertrophy. 8. 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 9. Postoperative ventilator support. PLAN: Continue current medication and treatment plan. Patient will be closely followed. Patient was seen and examined by nurse practitioner, Fiorella Kapadia and all elements of the case discussed with attending, Dr. Long. I performed a history and physical examination of this patient and discussed the same with the dictator. I agree with the dictator's note. Any additional findings/opinions, etc. will be noted.
[2016-08-14 19:01] LABS: Glucose,Whole Blood 122 mg/dL (75-99)
--- NOTE | 2016-08-14 19:19 | XR ---
EXAMINATION TYPE: XR chest 1V portable DATE OF EXAM: 08/14/2016 7:00 PM Comparison: 08/14/2016 Clinical History: 80-year-old male sob Findings: ET tube is satisfactory. NG tube courses to at least the lower thorax but the distal aspect is not we ll seen due to the degree of penetration. Median sternotomy wires are present. Right IJ Raymond-Laya cat heter has its tip in the distal right main pulmonary artery. Diffuse interstitial prominence with pat duncan bibasilar opacities and hazy density at the left base suggesting trace effusion. Left-sided chest tube remains in place without appreciable pneumothorax. Mediastinal drains are also present. Impression: Correlate for mild pulmonary vascular congestion. Bibasilar patchy opacities are slightly increased, probably representing atelectasis. Suspected trace left effusion as well.
[2016-08-14 20:16] LABS: Calcium 8.2 mg/dL (8.4-10.2); Potassium 3.9 mmol/L (3.5-5.1)
[2016-08-14 20:17] LABS: Glucose,Whole Blood 110 mg/dL (75-99)
[2016-08-14 20:17] LABS: CHCM 33.6; HCT 34.1 % (39.0-53.0); HDW 2.49; HGB 11.5 gm/dL (13.0-17.5); Immature Gran Flag Moderate; MCH 33.2 pg (25.0-35.0); MCHC 33.7 g/dL (31.0-37.0); MCV 98.6 fL (80.0-100.0); Mean Platelet Volume 10.7; RBC 3.46 m/uL (4.30-5.90); RDW 14.8 % (11.5-15.5); WBC 3.6 k/uL (3.8-10.6); WBC (Perox) 3.66
[2016-08-14 20:22] LABS: Add Differential Manual Differential
[2016-08-14 20:25] LABS: Manual Review Performed; Nucleated Red Blood Cells 0 /100 WBC (0-0); Total Cells Counted 100
[2016-08-14 20:26] LABS: RBC Morphology Normal
[2016-08-14 21:09] LABS: Glucose,Whole Blood 118 mg/dL (75-99)
[2016-08-14] MEDS ORDERED: SODIUM CHLORIDE 0.9% 1,000 ML IV ONE (21:19)
[2016-08-14] MEDS: LATANOPROST 0.005% OPHTH DROPS 2.5 ML BTL BOTH EYES SCH (22:36)
[2016-08-14] MEDS: CHLORHEXIDINE GLUCONATE 15 ML CUP MUCOUS MEM SCH (22:36)
--- NOTE | 2016-08-14 22:39 | PN ---
DATE OF SERVICE: 08/14/2016 ATTENDING NOTE: This patient was seen and examined by me earlier today in the ICU. I reviewed the note of my nurse practitioner, Ms. Kapadia, and discussed with her. Patient remains on the ventilator, intubated. Chest tubes remain in place. On examination, blood pressure 120/48. LUNGS: Diminished breath sounds. CARDIOVASCULAR: Heart sounds muffled. INVESTIGATIONS: Hemoglobin 11.5. BUN 26, creatinine 1.41. ASSESSMENT: Status post coronary artery bypass grafting. PLAN: Continue supportive care. Patient remains on IV propofol, insulin. Follow.
[2016-08-14 23:10] LABS: Glucose,Whole Blood 147 mg/dL (75-99)
[2016-08-15 00:22] LABS: Glucose,Whole Blood 137 mg/dL (75-99)
[2016-08-15 01:11] LABS: Glucose,Whole Blood 123 mg/dL (75-99)
[2016-08-15] MEDS: WATER FOR INJECTION, STERILE 1,000 ML with SODIUM ACETATE 150 MEQ IV SCH ×2 (01:12)
[2016-08-15] MEDS: PROPOFOL 500 MG in EMPTY BAG 1 BAG IV PRN ×10 (01:51→22:30)
[2016-08-15 02:13] LABS: Glucose,Whole Blood 115 mg/dL (75-99)
[2016-08-15 03:08] LABS: Glucose,Whole Blood 130 mg/dL (75-99)
[2016-08-15] MEDS: IPRATROPIUM-ALBUTEROL 3 ML NEB INHALATION SCH ×6 (03:19→23:26)
[2016-08-15 05:06] LABS: Glucose,Whole Blood 127 mg/dL (75-99)
[2016-08-15 05:34] LABS: Basophils % (A) 0 %; CH 33.2; CHCM 33.5; Eosinophils % (A) 0 %; HCT 32.5 % (39.0-53.0); HDW 2.47; HGB 10.6 gm/dL (13.0-17.5); Luc # (Auto) 0.07; Luc % (Auto) 1; Lymphocytes # (A) 0.9 k/uL (1.0-4.8); Lymphocytes % (A) 16 %; MCH 32.7 pg (25.0-35.0); MCHC 32.7 g/dL (31.0-37.0); MCV 99.8 fL (80.0-100.0); Macrocytosis Slight; Mean Platelet Volume 10.4; Monocytes # (A) 0.3 k/uL (0-1.0); Monocytes % (A) 5 %; Neutrophils # (A) 4.4 k/uL (1.3-7.7); Neutrophils % (A) 77 %; RBC 3.26 m/uL (4.30-5.90); RDW 14.8 % (11.5-15.5); WBC 5.7 k/uL (3.8-10.6); WBC (Perox) 6.05
[2016-08-15 05:40] LABS: INR 1.4 (<1.1); Prothrombin Time 13.6 sec (9.0-12.0)
--- NOTE | 2016-08-15 05:46 | P.PN ---
Subjective Principal diagnosis: cad cabg Patient is still intubated. On IV drips. Blood pressure 133/51 and 140/50 mmHg pulse rate is in the 90s Breath sounds are reduced bilaterally, heart sounds are distant abdomen is soft extremities are cool Impression Coronary artery disease status post coronary artery bypass grafting 2 vessel grafting Patient is still intubated and IV drips Plan Continue ICU management and ventilatory care Continue aspirin murmur metoprolol, statins Objective - Vital Signs Vital signs: Vital Signs Temp 97.8 F 08/14/16 16:00 Pulse 91 08/15/16 03:43 Resp 17 08/15/16 03:30 BP 100/58 08/13/16 17:00 Pulse Ox 99 08/15/16 03:30 Intake & Output 08/14/16 08/14/16 08/15/16 06:59 18:59 06:59 Intake Total 8196.702 2320.217 1902.364 Output Total 1287 889 283 Balance 512.237 841.321 2199.364 Intake: IV 1130.0 863.5 1494 Albumin Human 25% 50 ml 50 In Empty Bag 1 bag @ 100 mls/hr IVPB ONCE PRN Rx#: [id number] CO/CI 230 110 50 Lactated Ringers 1,000 ml 480 400 270 @ 20 mls/hr IV .Q24H [facility] Rx#:[id number] Nitroglycerin-D5w Pmx 50 137.0 1.5 mg In Dextrose/Water 1 250ml.bag @ 5 MCG/MIN 1.5 mls/hr IV .Q24H PRN Rx#: [id number] Sodium Chloride 0.9% 1, 1000 000 ml @ 999 mls/hr IV . Q1H1M [facility] Rx#:[id number] Vancomycin 1,750 mg In 250 250 Sodium Chloride 0.9% 250 ml @ 125 mls/hr IVPB Q16H [facility] Rx#:[id number] cefTAZidime 2 gm In 100 Sodium Chloride 0.9% 100 ml @ 100 mls/hr IVPB Q12HR [facility] Rx#:[id number] pressure bag 33 102 24 Intake, IV Titration 579.237 839.717 408.364 Amount ACETAMINOPHEN IV (For NPO 100 ) 1,000 mg In Empty Bag 1 bag @ 400 mls/hr IVPB ONCE ONE Rx#:[id number] Clevidipine Butyrate 25 262.567 50 5.667 mg In Empty Bag 1 bag @ 1 MG/HR 2 mls/hr IV .Q24H [facility] Rx#:[id number] Insulin Regular 100 unit 72.067 89.717 36.525 In Sodium Chloride 0.9% 100 ml @ Titrate IV .Q0M [facility]N Rx#:[id number] Propofol 500 mg In Empty 244.603 100 191.172 Bag 1 bag @ Titrate IV . Q0M PRN Rx#:[id number] Water For Injection, 600 75 Sterile 1,000 ml @ 50 mls /hr IV .[id number] [facility] with Sodium Acetate 150 meq Rx #:[id number] Oral 90 Output: Chest Tube Drainage 443 406 92 Chest Tube Bilateral 254 310 70 Mediastinal Chest Tube Left Lateral 169 96 22 Chest Chest Tube Left Mid- 20 Axillary Chest Gastric Drainage 350 Drainage 0 15 0 Left Calf 0 15 0 Urine 494 468 191 Other: Voiding Method Indwelling Catheter Indwelling Catheter Indwelling Catheter # Voids 1 # Bowel Movements 0 ABP, PAP, CO, CI - Last Documented Arterial Blood Pressure 133/51 Pulmonary Artery Pressure 26/18 Cardiac Output 7.5 Cardiac Index 3.3 - Labs CBC & Chem 7: 08/14/16 20:00 08/14/16 20:00 Labs: Abnormal Lab Results - Last 24 Hours (Table) 08/14/16 08/14/16 08/14/16 Range/Units 05:20 05:20 06:32 WBC 14.1 H (3.8-10.6) k/uL RBC 3.68 L (4.30-5.90) m/uL Hgb 12.9 L (13.0-17.5) gm/dL Hct 36.8 L (39.0-53.0) % MCH 35.1 H (25.0-35.0) pg Plt Count 81 L (150-450) k/uL Neutrophils # 11.8 H (1.3-7.7) k/uL Lymphocytes # (Manual) (1.0-4.8) k/uL ABG pH (7.35-7.45) ABG pCO2 (35-45) mmHg ABG pO2 (83-108) mmHg ABG HCO3 (21-25) mmol/L ABG Total CO2 (19-24) mmol/L ABG O2 Saturation (94-97) % Chloride 110 H (98-107) mmol/L Carbon Dioxide 16 L (22-30) mmol/L BUN (9-20) mg/dL Creatinine 1.30 H (0.66-1.25) mg/dL Glucose 148 H (74-99) mg/dL POC Glucose (mg/dL) 146 H (75-99) mg/dL Plasma Lactic Acid Ziggy (0.7-2.0) mmol/L Calcium (8.4-10.2) mg/dL Total Bilirubin 1.5 H (0.2-1.3) mg/dL Total Protein 5.1 L (6.3-8.2) g/dL Albumin 2.9 L (3.5-5.0) g/dL 08/14/16 08/14/16 08/14/16 Range/Units 07:54 08:50 09:19 WBC (3.8-10.6) k/uL RBC (4.30-5.90) m/uL Hgb (13.0-17.5) gm/dL Hct (39.0-53.0) % MCH (25.0-35.0) pg Plt Count (150-450) k/uL Neutrophils # (1.3-7.7) k/uL Lymphocytes # (Manual) (1.0-4.8) k/uL ABG pH (7.35-7.45) ABG pCO2 24 L (35-45) mmHg ABG pO2 67 L (83-108) mmHg ABG HCO3 16 L (21-25) mmol/L ABG Total CO2 16 L (19-24) mmol/L ABG O2 Saturation (94-97) % Chloride (98-107) mmol/L Carbon Dioxide (22-30) mmol/L BUN (9-20) mg/dL Creatinine (0.66-1.25) mg/dL Glucose (74-99) mg/dL POC Glucose (mg/dL) 141 H 124 H (75-99) mg/dL Plasma Lactic Acid Ziggy (0.7-2.0) mmol/L Calcium (8.4-10.2) mg/dL Total Bilirubin (0.2-1.3) mg/dL Total Protein (6.3-8.2) g/dL Albumin (3.5-5.0) g/dL 08/14/16 08/14/16 08/14/16 Range/Units 10:44 11:00 12:26 WBC (3.8-10.6) k/uL RBC (4.30-5.90) m/uL Hgb (13.0-17.5) gm/dL Hct (39.0-53.0) % MCH (25.0-35.0) pg Plt Count (150-450) k/uL Neutrophils # (1.3-7.7) k/uL Lymphocytes # (Manual) (1.0-4.8) k/uL ABG pH (7.35-7.45) ABG pCO2 (35-45) mmHg ABG pO2 (83-108) mmHg ABG HCO3 (21-25) mmol/L ABG Total CO2 (19-24) mmol/L ABG O2 Saturation (94-97) % Chloride (98-107) mmol/L Carbon Dioxide (22-30) mmol/L BUN (9-20) mg/dL Creatinine (0.66-1.25) mg/dL Glucose (74-99) mg/dL POC Glucose (mg/dL) 124 H 130 H 134 H (75-99) mg/dL Plasma Lactic Acid Ziggy (0.7-2.0) mmol/L Calcium (8.4-10.2) mg/dL Total Bilirubin (0.2-1.3) mg/dL Total Protein (6.3-8.2) g/dL Albumin (3.5-5.0) g/dL 08/14/16 08/14/16 08/14/16 Range/Units 13:00 13:17 15:14 WBC (3.8-10.6) k/uL RBC (4.30-5.90) m/uL Hgb (13.0-17.5) gm/dL Hct (39.0-53.0) % MCH (25.0-35.0) pg Plt Count (150-450) k/uL Neutrophils # (1.3-7.7) k/uL Lymphocytes # (Manual) (1.0-4.8) k/uL ABG pH 7.48 H (7.35-7.45) ABG pCO2 26 L (35-45) mmHg ABG pO2 82 L (83-108) mmHg ABG HCO3 19 L (21-25) mmol/L ABG Total CO2 (19-24) mmol/L ABG O2 Saturation (94-97) % Chloride (98-107) mmol/L Carbon Dioxide (22-30) mmol/L BUN (9-20) mg/dL Creatinine (0.66-1.25) mg/dL Glucose (74-99) mg/dL POC Glucose (mg/dL) 128 H 120 H (75-99) mg/dL Plasma Lactic Acid Ziggy (0.7-2.0) mmol/L Calcium (8.4-10.2) mg/dL Total Bilirubin (0.2-1.3) mg/dL Total Protein (6.3-8.2) g/dL Albumin (3.5-5.0) g/dL 08/14/16 08/14/16 08/14/16 Range/Units 15:20 16:56 17:58 WBC (3.8-10.6) k/uL RBC (4.30-5.90) m/uL Hgb (13.0-17.5) gm/dL Hct (39.0-53.0) % MCH (25.0-35.0) pg Plt Count (150-450) k/uL Neutrophils # (1.3-7.7) k/uL Lymphocytes # (Manual) (1.0-4.8) k/uL ABG pH 7.52 H (7.35-7.45) ABG pCO2 25 L (35-45) mmHg ABG pO2 57 L (83-108) mmHg ABG HCO3 20 L (21-25) mmol/L ABG Total CO2 (19-24) mmol/L ABG O2 Saturation 93.0 L (94-97) % Chloride (98-107) mmol/L Carbon Dioxide (22-30) mmol/L BUN (9-20) mg/dL Creatinine (0.66-1.25) mg/dL Glucose (74-99) mg/dL POC Glucose (mg/dL) 111 H 123 H (75-99) mg/dL Plasma Lactic Acid Ziggy (0.7-2.0) mmol/L Calcium (8.4-10.2) mg/dL Total Bilirubin (0.2-1.3) mg/dL Total Protein (6.3-8.2) g/dL Albumin (3.5-5.0) g/dL 08/14/16 08/14/16 08/14/16 Range/Units 18:57 20:00 20:00 WBC 3.6 L (3.8-10.6) k/uL RBC 3.46 L (4.30-5.90) m/uL Hgb 11.5 L (13.0-17.5) gm/dL Hct 34.1 L (39.0-53.0) % MCH (25.0-35.0) pg Plt Count 51 L (150-450) k/uL Neutrophils # (1.3-7.7) k/uL Lymphocytes # (Manual) 0.5 L (1.0-4.8) k/uL ABG pH (7.35-7.45) ABG pCO2 (35-45) mmHg ABG pO2 (83-108) mmHg ABG HCO3 (21-25) mmol/L ABG Total CO2 (19-24) mmol/L ABG O2 Saturation (94-97) % Chloride 109 H (98-107) mmol/L Carbon Dioxide (22-30) mmol/L BUN 26 H (9-20) mg/dL Creatinine 1.41 H (0.66-1.25) mg/dL Glucose 116 H (74-99) mg/dL POC Glucose (mg/dL) 122 H (75-99) mg/dL Plasma Lactic Acid Ziggy (0.7-2.0) mmol/L Calcium 8.2 L (8.4-10.2) mg/dL Total Bilirubin (0.2-1.3) mg/dL Total Protein (6.3-8.2) g/dL Albumin (3.5-5.0) g/dL 08/14/16 08/14/16 08/14/16 Range/Units 20:05 20:16 21:08 WBC (3.8-10.6) k/uL RBC (4.30-5.90) m/uL Hgb (13.0-17.5) gm/dL Hct (39.0-53.0) % MCH (25.0-35.0) pg Plt Count (150-450) k/uL Neutrophils # (1.3-7.7) k/uL Lymphocytes # (Manual) (1.0-4.8) k/uL ABG pH (7.35-7.45) ABG pCO2 (35-45) mmHg ABG pO2 (83-108) mmHg ABG HCO3 (21-25) mmol/L ABG Total CO2 (19-24) mmol/L ABG O2 Saturation (94-97) % Chloride (98-107) mmol/L Carbon Dioxide (22-30) mmol/L BUN (9-20) mg/dL Creatinine (0.66-1.25) mg/dL Glucose (74-99) mg/dL POC Glucose (mg/dL) 110 H 118 H (75-99) mg/dL Plasma Lactic Acid Zgigy 3.8 H* (0.7-2.0) mmol/L Calcium (8.4-10.2) mg/dL Total Bilirubin (0.2-1.3) mg/dL Total Protein (6.3-8.2) g/dL Albumin (3.5-5.0) g/dL 08/14/16 08/15/16 08/15/16 Range/Units 23:08 00:21 01:10 WBC (3.8-10.6) k/uL RBC (4.30-5.90) m/uL Hgb (13.0-17.5) gm/dL Hct (39.0-53.0) % MCH (25.0-35.0) pg Plt Count (150-450) k/uL Neutrophils # (1.3-7.7) k/uL Lymphocytes # (Manual) (1.0-4.8) k/uL ABG pH (7.35-7.45) ABG pCO2 (35-45) mmHg ABG pO2 (83-108) mmHg ABG HCO3 (21-25) mmol/L ABG Total CO2 (19-24) mmol/L ABG O2 Saturation (94-97) % Chloride (98-107) mmol/L Carbon Dioxide (22-30) mmol/L BUN (9-20) mg/dL Creatinine (0.66-1.25) mg/dL Glucose (74-99) mg/dL POC Glucose (mg/dL) 147 H 137 H 123 H (75-99) mg/dL Plasma Lactic Acid Ziggy (0.7-2.0) mmol/L Calcium (8.4-10.2) mg/dL Total Bilirubin (0.2-1.3) mg/dL Total Protein (6.3-8.2) g/dL Albumin (3.5-5.0) g/dL 08/15/16 08/15/16 08/15/16 Range/Units 02:10 03:06 05:05 WBC (3.8-10.6) k/uL RBC (4.30-5.90) m/uL Hgb (13.0-17.5) gm/dL Hct (39.0-53.0) % MCH (25.0-35.0) pg Plt Count (150-450) k/uL Neutrophils # (1.3-7.7) k/uL Lymphocytes # (Manual) (1.0-4.8) k/uL ABG pH (7.35-7.45) ABG pCO2 (35-45) mmHg ABG pO2 (83-108) mmHg ABG HCO3 (21-25) mmol/L ABG Total CO2 (19-24) mmol/L ABG O2 Saturation (94-97) % Chloride (98-107) mmol/L Carbon Dioxide (22-30) mmol/L BUN (9-20) mg/dL Creatinine (0.66-1.25) mg/dL Glucose (74-99) mg/dL POC Glucose (mg/dL) 115 H 130 H 127 H (75-99) mg/dL Plasma Lactic Acid Ziggy (0.7-2.0) mmol/L Calcium (8.4-10.2) mg/dL Total Bilirubin (0.2-1.3) mg/dL Total Protein (6.3-8.2) g/dL Albumin (3.5-5.0) g/dL Microbiology - Last 24 Hours (Table) 08/14/16 19:56 Gram Stain - Preliminary Sputum
[2016-08-15 05:51] LABS: ABG Base Excess -1.6 mmol/L; ABG HCO3 22 mmol/L (21-25); ABG PCO2 30 mmHg (35-45); ABG PH 7.47 (7.35-7.45); ABG PO2 78 mmHg (83-108); ABG TCO2 22 mmol/L (19-24)
[2016-08-15 06:05] LABS: Ionized Calcium 4.8 mg/dL (4.5-5.3)
[2016-08-15 06:13] LABS: Calcium 8.2 mg/dL (8.4-10.2); Phosphorous 3.3 mg/dL (2.5-4.5); Potassium 3.9 mmol/L (3.5-5.1); Total Bilirubin 2.5 mg/dL (0.2-1.3); Total Protein 4.6 g/dL (6.3-8.2)
[2016-08-15 06:21] LABS: Glucose,Whole Blood 123 mg/dL (75-99)
[2016-08-15] MEDS ORDERED: POTASSIUM CHLORIDE ORAL LIQUID 40 MEQ/30 ML CUP NG-TUBE SCH (07:00)
[2016-08-15 07:13] LABS: Glucose,Whole Blood 120 mg/dL (75-99)
[2016-08-15 08:31] LABS: Glucose,Whole Blood 106 mg/dL (75-99)
[2016-08-15] MEDS: MAGNESIUM SULFATE-D5W PMX 1 GM in DEXTROSE/WATER 1 100ML.BAG IVPB SCH ×2 (08:33→09:42)
[2016-08-15] MEDS: PANTOPRAZOLE 40 MG/10 ML VIAL IVP SCH (08:37)
[2016-08-15] MEDS: CHLORHEXIDINE GLUCONATE 15 ML CUP MUCOUS MEM SCH ×2 (08:37→21:33)
[2016-08-15] MEDS: METOPROLOL TARTRATE 25 MG TAB PO SCH ×2 (08:38→21:34)
[2016-08-15] MEDS: ATORVASTATIN 40 MG TAB PO SCH (08:39)
--- NOTE | 2016-08-15 08:40 | XR ---
EXAMINATION TYPE: XR chest 1V portable DATE OF EXAM: 08/15/2016 7:41 AM COMPARISON: 08/14/2016 INDICATION: Postop open heart TECHNIQUE: Single frontal view of the chest is obtained. FINDINGS: The heart size is normal. The pulmonary vasculature is normal. No suspicious focal consolidations are evident. Endotracheal tube is present with tip above the nick. A nasogastric tube is present, distal tip is not visualized due to degree of penetration. Left-sided chest tube is present. Sternotomy wires are p resent from the patient's CABG. [place] catheter is present with tip in the main pulmonary artery r egion. Findings appear stable from prior study. IMPRESSION: 1. No acute pulmonary process. 2. Lines and catheters discussed above. 3 exam appears stable from prior study
[2016-08-15] MEDS: DORZOLAMIDE HCL 2% DROPS 10 ML BTL LEFT EYE SCH (08:48)
[2016-08-15] MEDS: MUPIROCIN 2% OINT 22 GM TUBE TOPICAL SCH ×2 (08:49→21:33)
[2016-08-15] MEDS ORDERED: FUROSEMIDE 10 MG/ML 4 ML VIAL IV STA (09:14)
--- NOTE | 2016-08-15 09:14 | P.PN ---
Subjective 80-year-old male patient, complaining of exertional dyspnea over the past several months. The patient denied having any chest pain. 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 The patient was found to have occluded right coronary artery with collaterals filling from the left. The patient was found to have critical disease involving the left main coronary artery and critical disease involving diffuse marginal branch of circumflex and proximal LAD. Based on this, coronary artery bypass surgery was recommended. The patient was seen by cardiothoracic surgery and the tentative plan to undergo surgery on this patient is on Tuesday. The preoperative echocardiogram showed a preserved LV function with an ejection fraction of 50-55%. No evidence of any pulmonary hypertension. No evidence of any valvular abnormalities. There is evidence of hypertensive heart disease with concentric left ventricular hypertrophy. Chest x-ray shows no acute cardio pulmonary process. He has history of pulmonary embolism and DVT and the patient has been maintained on anticoagulation on outpatient basis with warfarin. On today's evaluation of 08/11/2016 the patient is stable. The patient has no specific complaints. The patient is using his incentive spirometer. The patient was found to have chronic thrombocytopenia and for that reason a hematology consultation was obtained. History of any chest pain. He remains on IV heparin. Awaiting surgery on Tuesday. A bedside spirometry is still to be done. On the patient remains stable. No other changes condition. Surgery will be done tomorrow. Pulmonary will to follow-up on this patient. His platelet counts are stable at 81,000. He remains on IV heparin. On 08/13/2016 I'm seeing this patient following his coronary bypass surgery. The patient underwent the surgery without any major complication. I discussed the case with the thoracic surgeon and the intraoperative course was essentially uncomplicated. The patient currently is intubated on mechanical ventilator. He is still sedated. He is hemodynamically stable. He is on a nitroglycerin and Cleviprex Drip for tight blood pressure control. The patient' s cardiac output is at 6.3 with an index of 2.8. PA pressures 29/17. The patient is also has his chest tubes in place with total amount of output being low at this point despite his underlying thrombocytopenia. He is also on an insulin drip at 40 units an hour for blood sugar control. Chest x-ray shows adequate expansion of both lungs and the chest tubes, ET tube and the Ace-Laya catheter in place. The blood gases showed a pH of 7.31 with a pCO2 of 48 and pO2 of 115 and it was not an FiO2 of 100% and I wean down the FiO2 down to 70% and the saturation is currently above 95%. The patient is also on assist control mode of ventilation with a PEEP of 5 and FiO2 of 70% with a tidal volume of 550. His rate is at 12. Postoperative platelet counts is at 42,000. Hemoglobin is at 10.9. The patient has not required any platelet transfusions. On 08/14/2016 the patient remains intubated on a mechanical ventilator. We failed to wean and extubate this patient yesterday because of oxygenation problems. This morning, the patient remained on assist control mode at the rate of 12, tidal volume 500, FiO2 of 60% and a PEEP of 5. The most recent blood gases showed a pH of 7.44 with a pCO2 of 24 and pO2 of 67. Chest x-ray is showing regular postsurgical changes with a mediastinal and the pleural chest tubes in place, ET tube is in a good location. The patient hemodynamically stable. He remains on a combination of nitroglycerin and Cleviprex drip for blood pressure control. His cardiac output as above 7 and the index is at 3.5. Is producing adequate amount of urine output. He remains sedated with Diprivan which is running at 30 mics. Nitroglycerin drip is running at 5 mics per minute and the Cleviprex is at 60 mg an hour. The patient is also on insulin drip at 10 units an hour. Output from the chest tubes have been 20 mL an hour. Meanwhile the patient had developed an acute kidney injury with a creatinine being up to 1.3. The bicarb level is down to 16 and the patient has a informed of non-anion gap metabolic acidosis. On 08/15/2016, the patient remains intubated. I was unable to wean this patient off the mechanical ventilator for several reasons. First and foremost, the patient was having borderline oxygenation. At the later stage, the patient started acting septic where he started having chills and fever and purulent foul -smelling respiratory secretions were also suctioned from his orotracheal tube. Based on all this, cultures and pain and the patient was started on IV Fortaz. Meanwhile, the patient was given IV fluids, overnight he received a bolus of normal saline 1 L and 2 boluses of albumin 12.5 g which improved his urine output. At this point in time, the patient is postop day #2. He is resting comfortably in bed. He is sedated with Diprivan and is calm and comfortable. He is an assist-control mode of ventilation and the most recent vent settings include an assist-control of 12, tidal volume of 600, FiO2 of 70% and a PEEP of 8. The most recent blood gases showed a pH of 7.47 with a pCO2 of 30 and pO2 of 78. Nevertheless, his pulse ox currently on the monitor is at 99% and FiO2 has been drop down to 60% and we will gradually weaning it down to maintain a saturation above 95%. He is afebrile for now. He still has a right IJ Ace-Laya catheter and hemodynamic parameters show a cardiac output of 6 with an index of 2.7. The patient's white cell count is not elevated at 5.7. He will was stable at 10.6. Renal function is impaired with a creatinine of 1.4. He is off the Catapres drip. He is off the nitroglycerin drip. He is producing around 20-30 mL of urine output on an hourly basis and he has gained significant amount of weight and there is third spacing. Chest x-ray shows increased tone vessel markings. ET tube and NG tube are all in good location. The KARL drain in the left lower extremity is in place and the total amount of output is 10 mL. The 2 mediastinal chest tubes in the left pleural chest tubes are also in place with minimal amount of output. Platelet count is stable at 40 ,000. He insulin drip is on hold for now. Objective - Vital Signs Vital signs: Vital Signs Temp 97.8 F 08/14/16 16:00 Pulse 88 08/15/16 08:01 Resp 14 08/15/16 08:00 BP 100/58 08/13/16 17:00 Pulse Ox 99 08/15/16 08:00 Intake & Output 08/14/16 08/15/16 08/15/16 18:59 06:59 18:59 Intake Total 4826.505 5216.364 427 Output Total 889 710 152 Balance 744.844 1198.364 275 Weight 122.5 kg Intake: IV 863.5 2657 277 0.9@75 20 Albumin Human 25% 50 ml 50 In Empty Bag 1 bag @ 100 mls/hr IVPB ONCE PRN Rx#: [id number] CO/CI 110 70 20 Lactated Ringers 1,000 ml 400 570 50 @ 20 mls/hr IV .Q24H [facility] Rx#:[id number] Nitroglycerin-D5w Pmx 50 1.5 mg In Dextrose/Water 1 250ml.bag @ 5 MCG/MIN 1.5 mls/hr IV .Q24H PRN Rx#: [id number] Sodium Chloride 0.9% 1, 1000 000 ml @ 999 mls/hr IV . Q1H1M ONE Rx#:[id number] Vancomycin 1,750 mg In 250 Sodium Chloride 0.9% 250 ml @ 125 mls/hr IVPB Q16H [facility] Rx#:[id number] Water For Injection, 825 75 Sterile 1,000 ml @ 50 mls /hr IV .[id number] [facility] with Sodium Acetate 150 meq Rx #:[id number] cefTAZidime 2 gm In 100 100 Sodium Chloride 0.9% 100 ml @ 100 mls/hr IVPB Q12HR [facility] Rx#:[id number] pressure bag 102 42 12 Intake, IV Titration 839.717 408.364 150 Amount ACETAMINOPHEN IV (For NPO 100 ) 1,000 mg In Empty Bag 1 bag @ 400 mls/hr IVPB ONCE ONE Rx#:[id number] Clevidipine Butyrate 25 50 5.667 mg In Empty Bag 1 bag @ 1 MG/HR 2 mls/hr IV .Q24H PRN Rx#:[id number] Insulin Regular 100 unit 89.717 36.525 In Sodium Chloride 0.9% 100 ml @ Titrate IV .Q0M PRN Rx#:[id number] Magnesium Sulfate-D5w Pmx 100 1 gm In Dextrose/Water 1 100ml.bag @ 100 mls/hr IVPB Q1H [facility] Rx#: [id number] Propofol 500 mg In Empty 100 191.172 50 Bag 1 bag @ Titrate IV . Q0M PRN Rx#:[id number] Water For Injection, 600 75 Sterile 1,000 ml @ 50 mls /hr IV .[id number] [facility] with Sodium Acetate 150 meq Rx #:[id number] Output: Chest Tube Drainage 406 134 22 Chest Tube Bilateral 310 100 20 Mediastinal Chest Tube Left Lateral 96 34 2 Chest Gastric Drainage 150 Drainage 15 20 Left Calf 15 20 Urine 468 406 130 Other: Voiding Method Indwelling Catheter Indwelling Catheter # Voids 1 # Bowel Movements 0 ABP, PAP, CO, CI - Last Documented Arterial Blood Pressure 140/52 Pulmonary Artery Pressure 30/17 Cardiac Output 6 Cardiac Index 2.7 - Exam The patient is intubated on a mechanical ventilator. He is sedated with Diprivan and calm and comfortable. Orogastric and orotracheal tube in place. The patient has a right IJ Ace-Laya catheter Cordis in place.Head exam was generally normal. There was no scleral icterus or corneal arcus. Mucous membranes were moist.Neck was supple and without jugular venous distension, thyromegaly, or carotid bruits. Carotids were easily palpable bilaterally. There was no adenopathy. Lung sounds are equal and symmetrical breath sounds without any rhonchi or wheezes or any crackles. All of the chest tubes are all in place. Heart sounds are regular, positive S1-S2. No cervical murmurs appreciated. Sternum stable clean and intact.Abdominal exam revealed normal bowel sounds. The abdomen was soft, non-tender, and without masses, organomegaly , or appreciable enlargement of the abdominal aorta. Extremities show diminished pulses. There is no cyanosis or clubbing. All of the surgical wound sites are dry clean and intact at this point. Neurologically the patient remains sedated. - Labs CBC & Chem 7: 08/15/16 05:08 08/15/16 05:08 Labs: Abnormal Lab Results - Last 24 Hours (Table) 08/14/16 08/14/16 08/14/16 Range/Units 08:50 09:19 10:44 WBC (3.8-10.6) k/uL RBC (4.30-5.90) m/uL Hgb (13.0-17.5) gm/dL Hct (39.0-53.0) % Plt Count (150-450) k/uL Lymphocytes # (1.0-4.8) k/uL Lymphocytes # (Manual) (1.0-4.8) k/uL PT (9.0-12.0) sec ABG pH (7.35-7.45) ABG pCO2 24 L (35-45) mmHg ABG pO2 67 L (83-108) mmHg ABG HCO3 16 L (21-25) mmol/L ABG Total CO2 16 L (19-24) mmol/L ABG O2 Saturation (94-97) % ABG Lactic Acid (0.5-1.6) mmol/L Chloride (98-107) mmol/L BUN (9-20) mg/dL Creatinine (0.66-1.25) mg/dL Glucose (74-99) mg/dL POC Glucose (mg/dL) 124 H 124 H (75-99) mg/dL Plasma Lactic Acid Ziggy (0.7-2.0) mmol/L Calcium (8.4-10.2) mg/dL Total Bilirubin (0.2-1.3) mg/dL Total Protein (6.3-8.2) g/dL Albumin (3.5-5.0) g/dL 08/14/16 08/14/16 08/14/16 Range/Units 11:00 12:26 13:00 WBC (3.8-10.6) k/uL RBC (4.30-5.90) m/uL Hgb (13.0-17.5) gm/dL Hct (39.0-53.0) % Plt Count (150-450) k/uL Lymphocytes # (1.0-4.8) k/uL Lymphocytes # (Manual) (1.0-4.8) k/uL PT (9.0-12.0) sec ABG pH 7.48 H (7.35-7.45) ABG pCO2 26 L (35-45) mmHg ABG pO2 82 L (83-108) mmHg ABG HCO3 19 L (21-25) mmol/L ABG Total CO2 (19-24) mmol/L ABG O2 Saturation (94-97) % ABG Lactic Acid (0.5-1.6) mmol/L Chloride (98-107) mmol/L BUN (9-20) mg/dL Creatinine (0.66-1.25) mg/dL Glucose (74-99) mg/dL POC Glucose (mg/dL) 130 H 134 H (75-99) mg/dL Plasma Lactic Acid Ziggy (0.7-2.0) mmol/L Calcium (8.4-10.2) mg/dL Total Bilirubin (0.2-1.3) mg/dL Total Protein (6.3-8.2) g/dL Albumin (3.5-5.0) g/dL 08/14/16 08/14/16 08/14/16 Range/Units 13:17 15:14 15:20 WBC (3.8-10.6) k/uL RBC (4.30-5.90) m/uL Hgb (13.0-17.5) gm/dL Hct (39.0-53.0) % Plt Count (150-450) k/uL Lymphocytes # (1.0-4.8) k/uL Lymphocytes # (Manual) (1.0-4.8) k/uL PT (9.0-12.0) sec ABG pH 7.52 H (7.35-7.45) ABG pCO2 25 L (35-45) mmHg ABG pO2 57 L (83-108) mmHg ABG HCO3 20 L (21-25) mmol/L ABG Total CO2 (19-24) mmol/L ABG O2 Saturation 93.0 L (94-97) % ABG Lactic Acid (0.5-1.6) mmol/L Chloride (98-107) mmol/L BUN (9-20) mg/dL Creatinine (0.66-1.25) mg/dL Glucose (74-99) mg/dL POC Glucose (mg/dL) 128 H 120 H (75-99) mg/dL Plasma Lactic Acid Ziggy (0.7-2.0) mmol/L Calcium (8.4-10.2) mg/dL Total Bilirubin (0.2-1.3) mg/dL Total Protein (6.3-8.2) g/dL Albumin (3.5-5.0) g/dL 08/14/16 08/14/16 08/14/16 Range/Units 16:56 17:58 18:57 WBC (3.8-10.6) k/uL RBC (4.30-5.90) m/uL Hgb (13.0-17.5) gm/dL Hct (39.0-53.0) % Plt Count (150-450) k/uL Lymphocytes # (1.0-4.8) k/uL Lymphocytes # (Manual) (1.0-4.8) k/uL PT (9.0-12.0) sec ABG pH (7.35-7.45) ABG pCO2 (35-45) mmHg ABG pO2 (83-108) mmHg ABG HCO3 (21-25) mmol/L ABG Total CO2 (19-24) mmol/L ABG O2 Saturation (94-97) % ABG Lactic Acid (0.5-1.6) mmol/L Chloride (98-107) mmol/L BUN (9-20) mg/dL Creatinine (0.66-1.25) mg/dL Glucose (74-99) mg/dL POC Glucose (mg/dL) 111 H 123 H 122 H (75-99) mg/dL Plasma Lactic Acid Ziggy (0.7-2.0) mmol/L Calcium (8.4-10.2) mg/dL Total Bilirubin (0.2-1.3) mg/dL Total Protein (6.3-8.2) g/dL Albumin (3.5-5.0) g/dL 08/14/16 08/14/16 08/14/16 Range/Units 20:00 20:00 20:05 WBC 3.6 L (3.8-10.6) k/uL RBC 3.46 L (4.30-5.90) m/uL Hgb 11.5 L (13.0-17.5) gm/dL Hct 34.1 L (39.0-53.0) % Plt Count 51 L (150-450) k/uL Lymphocytes # (1.0-4.8) k/uL Lymphocytes # (Manual) 0.5 L (1.0-4.8) k/uL PT (9.0-12.0) sec ABG pH (7.35-7.45) ABG pCO2 (35-45) mmHg ABG pO2 (83-108) mmHg ABG HCO3 (21-25) mmol/L ABG Total CO2 (19-24) mmol/L ABG O2 Saturation (94-97) % ABG Lactic Acid (0.5-1.6) mmol/L Chloride 109 H (98-107) mmol/L BUN 26 H (9-20) mg/dL Creatinine 1.41 H (0.66-1.25) mg/dL Glucose 116 H (74-99) mg/dL POC Glucose (mg/dL) (75-99) mg/dL Plasma Lactic Acid Ziggy 3.8 H* (0.7-2.0) mmol/L Calcium 8.2 L (8.4-10.2) mg/dL Total Bilirubin (0.2-1.3) mg/dL Total Protein (6.3-8.2) g/dL Albumin (3.5-5.0) g/dL 08/14/16 08/14/16 08/14/16 Range/Units 20:16 21:08 23:08 WBC (3.8-10.6) k/uL RBC (4.30-5.90) m/uL Hgb (13.0-17.5) gm/dL Hct (39.0-53.0) % Plt Count (150-450) k/uL Lymphocytes # (1.0-4.8) k/uL Lymphocytes # (Manual) (1.0-4.8) k/uL PT (9.0-12.0) sec ABG pH (7.35-7.45) ABG pCO2 (35-45) mmHg ABG pO2 (83-108) mmHg ABG HCO3 (21-25) mmol/L ABG Total CO2 (19-24) mmol/L ABG O2 Saturation (94-97) % ABG Lactic Acid (0.5-1.6) mmol/L Chloride (98-107) mmol/L BUN (9-20) mg/dL Creatinine (0.66-1.25) mg/dL Glucose (74-99) mg/dL POC Glucose (mg/dL) 110 H 118 H 147 H (75-99) mg/dL Plasma Lactic Acid Ziggy (0.7-2.0) mmol/L Calcium (8.4-10.2) mg/dL Total Bilirubin (0.2-1.3) mg/dL Total Protein (6.3-8.2) g/dL Albumin (3.5-5.0) g/dL 08/15/16 08/15/16 08/15/16 Range/Units 00:21 01:10 02:10 WBC (3.8-10.6) k/uL RBC (4.30-5.90) m/uL Hgb (13.0-17.5) gm/dL Hct (39.0-53.0) % Plt Count (150-450) k/uL Lymphocytes # (1.0-4.8) k/uL Lymphocytes # (Manual) (1.0-4.8) k/uL PT (9.0-12.0) sec ABG pH (7.35-7.45) ABG pCO2 (35-45) mmHg ABG pO2 (83-108) mmHg ABG HCO3 (21-25) mmol/L ABG Total CO2 (19-24) mmol/L ABG O2 Saturation (94-97) % ABG Lactic Acid (0.5-1.6) mmol/L Chloride (98-107) mmol/L BUN (9-20) mg/dL Creatinine (0.66-1.25) mg/dL Glucose (74-99) mg/dL POC Glucose (mg/dL) 137 H 123 H 115 H (75-99) mg/dL Plasma Lactic Acid Ziggy (0.7-2.0) mmol/L Calcium (8.4-10.2) mg/dL Total Bilirubin (0.2-1.3) mg/dL Total Protein (6.3-8.2) g/dL Albumin (3.5-5.0) g/dL 08/15/16 08/15/16 08/15/16 Range/Units 03:06 04:50 05:05 WBC (3.8-10.6) k/uL RBC (4.30-5.90) m/uL Hgb (13.0-17.5) gm/dL Hct (39.0-53.0) % Plt Count (150-450) k/uL Lymphocytes # (1.0-4.8) k/uL Lymphocytes # (Manual) (1.0-4.8) k/uL PT (9.0-12.0) sec ABG pH 7.47 H (7.35-7.45) ABG pCO2 30 L (35-45) mmHg ABG pO2 78 L (83-108) mmHg ABG HCO3 (21-25) mmol/L ABG Total CO2 (19-24) mmol/L ABG O2 Saturation (94-97) % ABG Lactic Acid (0.5-1.6) mmol/L Chloride (98-107) mmol/L BUN (9-20) mg/dL Creatinine (0.66-1.25) mg/dL Glucose (74-99) mg/dL POC Glucose (mg/dL) 130 H 127 H (75-99) mg/dL Plasma Lactic Acid Ziggy (0.7-2.0) mmol/L Calcium (8.4-10.2) mg/dL Total Bilirubin (0.2-1.3) mg/dL Total Protein (6.3-8.2) g/dL Albumin (3.5-5.0) g/dL 08/15/16 08/15/16 08/15/16 Range/Units 05:08 05:08 05:08 WBC (3.8-10.6) k/uL RBC 3.26 L (4.30-5.90) m/uL Hgb 10.6 L (13.0-17.5) gm/dL Hct 32.5 L (39.0-53.0) % Plt Count 40 L* (150-450) k/uL Lymphocytes # 0.9 L (1.0-4.8) k/uL Lymphocytes # (Manual) (1.0-4.8) k/uL PT 13.6 H (9.0-12.0) sec ABG pH (7.35-7.45) ABG pCO2 (35-45) mmHg ABG pO2 (83-108) mmHg ABG HCO3 (21-25) mmol/L ABG Total CO2 (19-24) mmol/L ABG O2 Saturation (94-97) % ABG Lactic Acid (0.5-1.6) mmol/L Chloride (98-107) mmol/L BUN 27 H (9-20) mg/dL Creatinine 1.40 H (0.66-1.25) mg/dL Glucose 125 H (74-99) mg/dL POC Glucose (mg/dL) (75-99) mg/dL Plasma Lactic Acid Ziggy (0.7-2.0) mmol/L Calcium 8.2 L (8.4-10.2) mg/dL Total Bilirubin 2.5 H (0.2-1.3) mg/dL Total Protein 4.6 L (6.3-8.2) g/dL Albumin 2.5 L (3.5-5.0) g/dL 08/15/16 08/15/16 08/15/16 Range/Units 05:08 06:19 07:12 WBC (3.8-10.6) k/uL RBC (4.30-5.90) m/uL Hgb (13.0-17.5) gm/dL Hct (39.0-53.0) % Plt Count (150-450) k/uL Lymphocytes # (1.0-4.8) k/uL Lymphocytes # (Manual) (1.0-4.8) k/uL PT (9.0-12.0) sec ABG pH (7.35-7.45) ABG pCO2 (35-45) mmHg ABG pO2 (83-108) mmHg ABG HCO3 (21-25) mmol/L ABG Total CO2 (19-24) mmol/L ABG O2 Saturation (94-97) % ABG Lactic Acid 5.0 H* (0.5-1.6) mmol/L Chloride (98-107) mmol/L BUN (9-20) mg/dL Creatinine (0.66-1.25) mg/dL Glucose (74-99) mg/dL POC Glucose (mg/dL) 123 H 120 H (75-99) mg/dL Plasma Lactic Acid Ziggy (0.7-2.0) mmol/L Calcium (8.4-10.2) mg/dL Total Bilirubin (0.2-1.3) mg/dL Total Protein (6.3-8.2) g/dL Albumin (3.5-5.0) g/dL 08/15/16 Range/Units 08:29 WBC (3.8-10.6) k/uL RBC (4.30-5.90) m/uL Hgb (13.0-17.5) gm/dL Hct (39.0-53.0) % Plt Count (150-450) k/uL Lymphocytes # (1.0-4.8) k/uL Lymphocytes # (Manual) (1.0-4.8) k/uL PT (9.0-12.0) sec ABG pH (7.35-7.45) ABG pCO2 (35-45) mmHg ABG pO2 (83-108) mmHg ABG HCO3 (21-25) mmol/L ABG Total CO2 (19-24) mmol/L ABG O2 Saturation (94-97) % ABG Lactic Acid (0.5-1.6) mmol/L Chloride (98-107) mmol/L BUN (9-20) mg/dL Creatinine (0.66-1.25) mg/dL Glucose (74-99) mg/dL POC Glucose (mg/dL) 106 H (75-99) mg/dL Plasma Lactic Acid Ziggy (0.7-2.0) mmol/L Calcium (8.4-10.2) mg/dL Total Bilirubin (0.2-1.3) mg/dL Total Protein (6.3-8.2) g/dL Albumin (3.5-5.0) g/dL Microbiology - Last 24 Hours (Table) 08/14/16 19:56 Gram Stain - Preliminary Sputum Assessment and Plan Plan: Assessment 1 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 The patient underwent carotid bypass surgery and currently is postop day #2. 2 postoperative hypoxemia with difficulties and weaning due to ongoing oxygenation problem. Meanwhile the patient is producing purulent sputum and he had fever along with foul-smelling rest or secretions. Cultures were obtained and is showing gram-negative and gram-positive cocci and the patient is currently on IV Fortaz. White cell count is not elevated. No hypotension. Mild lactic acidosis is present. 2 diabetes mellitus on insulin drip for blood sugar control 3 postoperative hypertension currently off nitroglycerin drip and Cleviprex 4 post thoracotomy respiratory failure, expected, currently the oxygenation remains borderline . Chest x-ray findings are consistent with increased interstitial markings probably related to fluid overload. The patient has adequate cardiac index output for now. Hemodynamically stable. 5 previous history of DVT and pulmonary embolism , maintained on warfarin outpatient basis, 6 thrombocytopenia him a stable with a platelet count, without evidence of any acute bleeding 7 acute kidney injury, creatinine is up to 1.4 8 non-anion gap metabolic acidosis, recovered while the patient on a bicarb drip and her most recent blood gases show a component of respiratory alkalosis. Plan Continue vent support. Patient will be kept on a PEEP of 8 and FiO2 will be gradually weaned down to 60% on down to 50% of the pulse ox tolerates. Will try to maintain a saturation above 95% at all times. Meanwhile, sputum sample was sent for Gram stain and culture results are still pending and the patient was started on IV Fortaz. The patient may benefit from diuresis. We'll give him a dose of Lasix 40 mg of push and will monitor his urine output and fluid balance. Meanwhile, we will stop the bicarb drip and was switched patient to a normal saline infusion at the rate of 75 mL an hour., Continue propofol drip. Repeat lactic acid levels. No plans for weaning today and I expect the patient needs to be more stable in terms of his oxygenation and respiratory status prior to considering any further weaning. [facility]. We'll continue to follow make further recommendations based on his progress. May consider tube feedings with the next 24 hours if fails to wean. Critically care evaluation. More than 30 minutes.
[2016-08-15 09:52] LABS: Glucose,Whole Blood 165 mg/dL (75-99)
[2016-08-15] MEDS: SODIUM CHLORIDE 0.9% 1,000 ML IV SCH (10:16)
[2016-08-15 11:11] LABS: Glucose,Whole Blood 168 mg/dL (75-99)
[2016-08-15 12:20] LABS: Glucose,Whole Blood 137 mg/dL (75-99)
[2016-08-15 13:10] LABS: Glucose,Whole Blood 150 mg/dL (75-99)
[2016-08-15] MEDS: HYDROcodone/APAP 5-325MG 1 EACH TAB PO PRN ×3 (13:19→22:09)
--- NOTE | 2016-08-15 13:23 | P.PN ---
Progress Note - Text CV Surgery Nursing POD: #2, coronary artery bypass grafting 2 utilizing the left internal mammary artery to left anterior descending coronary artery and reverse saphenous vein graft to the obtuse marginal branch. Endoscopic vein harvesting of the left greater saphenous vein. Epi-aortic ultrasonography and transesophageal echocardiogram. Patient sedated on mechanical ventilation, no apparent distress noted Vital Signs: Vital Signs - 24 hr 08/14/16 08/14/16 08/14/16 14:00 15:00 15:23 Temperature Pulse Rate 72 67 70 Respiratory 16 20 Rate O2 Sat by Pulse 97 96 Oximetry 08/14/16 08/14/16 08/14/16 15:30 15:55 16:00 Temperature 97.8 F Pulse Rate 71 71 Respiratory 27 H 16 Rate O2 Sat by Pulse 93 L 94 L Oximetry 08/14/16 08/14/16 08/14/16 17:00 18:00 19:00 Temperature Pulse Rate 94 93 82 Respiratory 12 27 H 24 Rate O2 Sat by Pulse 92 L 93 L 94 L Oximetry 08/14/16 08/14/16 08/14/16 19:46 20:00 20:30 Temperature Pulse Rate 84 83 85 Respiratory 17 15 Rate O2 Sat by Pulse 97 95 Oximetry 08/14/16 08/14/16 08/14/16 20:37 21:00 21:30 Temperature Pulse Rate 84 93 94 Respiratory 21 20 Rate O2 Sat by Pulse 96 96 Oximetry 08/14/16 08/14/16 08/14/16 22:00 22:30 23:00 Temperature Pulse Rate 92 94 89 Respiratory 21 20 18 Rate O2 Sat by Pulse 98 96 99 Oximetry 08/14/16 08/14/16 08/15/16 23:30 23:41 00:00 Temperature Pulse Rate 94 94 98 Respiratory 21 17 Rate O2 Sat by Pulse 97 97 Oximetry 08/15/16 08/15/16 08/15/16 00:18 00:30 01:00 Temperature Pulse Rate 97 96 97 Respiratory 21 22 Rate O2 Sat by Pulse 96 95 Oximetry 08/15/16 08/15/16 08/15/16 01:30 02:00 02:30 Temperature Pulse Rate 94 95 91 Respiratory 23 22 21 Rate O2 Sat by Pulse 96 95 96 Oximetry 08/15/16 08/15/16 08/15/16 03:00 03:22 03:30 Temperature Pulse Rate 92 92 92 Respiratory 21 17 Rate O2 Sat by Pulse 96 99 Oximetry 08/15/16 08/15/16 08/15/16 03:43 04:00 04:30 Temperature Pulse Rate 91 95 90 Respiratory 24 21 Rate O2 Sat by Pulse 97 96 Oximetry 08/15/16 08/15/16 08/15/16 05:00 05:30 06:00 Temperature Pulse Rate 90 81 79 Respiratory 23 21 20 Rate O2 Sat by Pulse 97 96 97 Oximetry 08/15/16 08/15/16 08/15/16 06:30 07:00 07:30 Temperature Pulse Rate 79 79 78 Respiratory 20 21 19 Rate O2 Sat by Pulse 97 98 98 Oximetry 08/15/16 08/15/16 08/15/16 07:44 08:00 08:01 Temperature Pulse Rate 78 81 88 Respiratory 20 Rate O2 Sat by Pulse 99 Oximetry 08/15/16 08/15/16 08/15/16 08:30 09:00 09:30 Temperature Pulse Rate 79 77 69 Respiratory 18 18 17 Rate O2 Sat by Pulse 99 98 Oximetry 08/15/16 08/15/16 08/15/16 10:00 10:30 11:00 Temperature Pulse Rate 66 69 80 Respiratory 20 20 19 Rate O2 Sat by Pulse 97 97 96 Oximetry 08/15/16 08/15/16 08/15/16 11:30 11:59 12:00 Temperature Pulse Rate 75 78 Respiratory 18 17 Rate O2 Sat by Pulse 98 96 98 Oximetry 08/15/16 08/15/16 12:30 13:00 Temperature Pulse Rate 91 89 Respiratory 13 14 Rate O2 Sat by Pulse 98 97 Oximetry ABP, PAP, CO, CI - Last 8 Hours Arterial Blood Pressure 129/49 Arterial Blood Pressure 135/51 Arterial Blood Pressure 123/48 Arterial Blood Pressure 124/47 Arterial Blood Pressure 113/46 Arterial Blood Pressure 106/47 Arterial Blood Pressure 103/46 Arterial Blood Pressure 108/41 Arterial Blood Pressure 138/48 Arterial Blood Pressure 90/70 Arterial Blood Pressure 140/52 Arterial Blood Pressure 131/48 Arterial Blood Pressure 116/48 Arterial Blood Pressure 124/48 Arterial Blood Pressure 133/49 Arterial Blood Pressure 125/49 Pulmonary Artery Pressure 27/17 Pulmonary Artery Pressure 29/17 Pulmonary Artery Pressure 28/16 Pulmonary Artery Pressure 31/18 Pulmonary Artery Pressure 30/17 Pulmonary Artery Pressure 31/17 Pulmonary Artery Pressure 33/19 Pulmonary Artery Pressure 34/19 Pulmonary Artery Pressure 32/18 Pulmonary Artery Pressure 29/18 Pulmonary Artery Pressure 30/17 Pulmonary Artery Pressure 26/15 Pulmonary Artery Pressure 28/14 Pulmonary Artery Pressure 27/15 Pulmonary Artery Pressure 28/15 Pulmonary Artery Pressure 28/16 Cardiac Output 5.5 Cardiac Output 5.5 Cardiac Output 5.5 Cardiac Output 5.4 Cardiac Output 5.4 Cardiac Output 5.4 Cardiac Output 5.4 Cardiac Output 5.4 Cardiac Output 5.4 Cardiac Output 5.4 Cardiac Output 6 Cardiac Output 6 Cardiac Output 6 Cardiac Output 6 Cardiac Output 6 Cardiac Output 6 Cardiac Index 2.4 Cardiac Index 2.4 Cardiac Index 2.7 Labs: Short CBC 08/14/16 08/15/16 Range/Units 20:00 05:08 WBC 3.6 L 5.7 (3.8-10.6) k/uL Hgb 11.5 L 10.6 L (13.0-17.5) gm/dL Hct 34.1 L 32.5 L (39.0-53.0) % Plt Count 51 L 40 L* (150-450) k/uL Neutrophils # 4.4 (1.3-7.7) k/uL BMP 08/14/16 08/15/16 20:00 05:08 Sodium 139 140 Potassium 3.9 3.9 Chloride 109 H 106 Carbon Dioxide 22 22 BUN 26 H 27 H Creatinine 1.41 H 1.40 H Glucose 116 H 125 H Calcium 8.2 L 8.2 L Liver Function 08/15/16 Range/Units 05:08 Total Bilirubin 2.5 H (0.2-1.3) mg/dL AST 41 (17-59) U/L ALT 39 (21-72) U/L Alkaline Phosphatase 38 (38-126) U/L Albumin 2.5 L (3.5-5.0) g/dL IV Fluids: Propofol at 40 mcg/kg/m, insulin drip is at 7.5 units per hour Cardiac output: 5.4 L/m Cardiac index: 2.4 L/m Pulmonary artery pressures: 32/18 mmHg Lungs: Lungs are essentially clear to auscultation Heart: S1S2, regular rate and rhythm bedside telemetry shows a normal sinus rhythm with a rate of 87 Sternum stable, chest incision clean with silverlon dressing clean and dry. Abdomen: Soft, Positive bowel sounds present in all 4 quadrants. CBGs: 106-127 mg/dL U/O: Thornton catheter to dependent drainage with adequate urine output Intake & Output 08/13/16 08/14/16 08/15/16 08/16/16 06:59 06:59 06:59 06:59 Intake Total 1248 3100.611 4768.581 806 Output Total 3825 1599 1378 Balance 1248 -703.389 7754.581 -572 Weight 109.1 kg 122.5 kg Intake & Output 08/14/16 08/15/16 08/15/16 22:59 06:59 14:59 Intake Total 2344.783 1230.414 806 Output Total 167 016 3345 Balance 1942.783 677.414 -572 Weight 122.5 kg Intake: IV 1769 1064 306 0.9@75 20 Albumin Human 25% 50 ml 50 In Empty Bag 1 bag @ 100 mls/hr IVPB ONCE PRN Rx#: [id number] CO/CI 50 40 40 Lactated Ringers 1,000 ml 290 400 50 @ 20 mls/hr IV .Q24H [facility] Rx#:[id number] Sodium Chloride 0.9% 1, 1000 000 ml @ 999 mls/hr IV . Q1H1M ONE Rx#:[id number] Water For Injection, 225 600 75 Sterile 1,000 ml @ 50 mls /hr IV .[id number] [facility] with Sodium Acetate 150 meq Rx #:[id number] cefTAZidime 2 gm In 100 100 Sodium Chloride 0.9% 100 ml @ 100 mls/hr IVPB Q12HR [facility] Rx#:[id number] pressure bag 54 24 21 Intake, IV Titration 575.783 166.414 500 Amount ACETAMINOPHEN IV (For NPO 100 ) 1,000 mg In Empty Bag 1 bag @ 400 mls/hr IVPB ONCE ONE Rx#:[id number] Clevidipine Butyrate 25 5.667 mg In Empty Bag 1 bag @ 1 MG/HR 2 mls/hr IV .Q24H PRN Rx#:[id number] Insulin Regular 100 unit 45.116 25.242 In Sodium Chloride 0.9% 100 ml @ Titrate IV .Q0M PRN Rx#:[id number] Magnesium Sulfate-D5w Pmx 200 1 gm In Dextrose/Water 1 100ml.bag @ 100 mls/hr IVPB Q1H [facility] Rx#: [id number] Propofol 500 mg In Empty 50 141.172 50 Bag 1 bag @ Titrate IV . Q0M PRN Rx#:[id number] Sodium Chloride 0.9% 1, 250 000 ml @ 50 mls/hr IV . Q20H [facility] Rx#:[id number] Water For Injection, 375 Sterile 1,000 ml @ 50 mls /hr IV .[id number] [facility] with Sodium Acetate 150 meq Rx #:[id number] Output: Chest Tube Drainage 126 78 48 Chest Tube Bilateral 90 60 40 Mediastinal Chest Tube Left Lateral 36 18 8 Chest Gastric Drainage 150 Drainage 15 20 Left Calf 15 20 Urine 886 932 7858 Other: Voiding Method Indwelling Catheter Indwelling Catheter Indwelling Catheter # Bowel Movements 0 Chest Tubes: Mediastinal chest tubes 2 and left pleural chest tube without visible air leaks and with minimal drainage Plan: Vent management per pulmonology Await sputum culture results Discontinue mediastinal chest tubes Change aspirin dose to low dose in light of platelet count.
[2016-08-15 15:06] LABS: Glucose,Whole Blood 129 mg/dL (75-99)
[2016-08-15 16:32] LABS: Glucose,Whole Blood 105 mg/dL (75-99)
[2016-08-15 17:01] LABS: Glucose,Whole Blood 113 mg/dL (75-99)
[2016-08-15 17:05] LABS: ABG Base Excess -0.1 mmol/L; ABG HCO3 23 mmol/L (21-25); ABG PCO2 30 mmHg (35-45); ABG PH 7.49 (7.35-7.45); ABG PO2 79 mmHg (83-108); ABG TCO2 24 mmol/L (19-24)
[2016-08-15 18:05] LABS: Glucose,Whole Blood 125 mg/dL (75-99)
--- NOTE | 2016-08-15 18:51 | PN ---
DATE OF SERVICE: 08/15/2016 PRESENTING COMPLAINT: Status post CABG . INTERVAL HISTORY: This is a patient who is status post CABG x2 and is currently on the ventilator with an FiO2 of 60%, PEEP of 8. Telemetry shows sinus rhythm. Patient's drips include lactated Ringer's IV, propofol and insulin. Patient has one left pleural chest tube in place. Review of systems cannot be done. Patient is intubated. Current medications reviewed above. PHYSICAL EXAMINATION: VITAL SIGNS: Temperature 98.0, pulse 90, respiratory rate 17, mechanical ventilation in place. Blood pressure 125/51, oxygen saturation 97% on FiO2 of 50%. GENERAL APPEARANCE: Lying in bed, intubated. EYES: Pupils equal. Conjunctivae normal. ENT: Endotracheal tube is in place. NECK: JVD unable to assess. Mass not palpable. Respiratory effort normal on the ventilator. LUNGS: Diminished breath sounds bilaterally. CARDIOVASCULAR: First and second sounds noted. Generalized edema. CHEST WALL: Patient has 1 chest tube. ABDOMEN: Soft, nontender. Liver and spleen not palpable. NEUROLOGIC: Pupils are equal. Plantars unequivocal. INVESTIGATIONS: White blood cell count 5.7, hemoglobin 10.6, platelets 77, INR 1.4. Sodium 140, potassium 3.9, BUN 27, creatinine 1.40. Arterial blood gas pH 7.49, pCO2 30 PaO2 79, HC03 23, base excess -0.1, lactic acid 4.7. Chest x-ray no acute pulmonary process. ASSESSMENT: 1. 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 Slow to improve. 2. Coronary artery disease. 3. Diabetes mellitus, type II, on oral hypoglycemics. 4. 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 5. Hyperlipidemia. 6. Primary osteoarthritis of multiple joints bilaterally. 7. Benign prostatic hypertrophy. 8. Thrombocytopenia, likely, idiopathic thrombocytopenic purpura. 9. Postoperative ventilator support, slow to wean. PLAN: Continue current medication and treatment plan. Pulmonary, cardiovascular surgery, currently following patient. Pulmonology will continue with ventilator management support. Plan is to ultimately weaned down patient and prepare for extubation. Sputum sample was sent for Gram stain pending results. Patient was prophylactically started on IV Fortaz. Additionally, patient may benefit from diuresis and received 40 mg of IV push Lasix. We will consider initiating tube feedings in the next 24 hours if the patient does not wean. Will continue to follow. Patient was seen and examined by nurse practitioner, Fiorella Kapadia, and all case the elements of the case were discussed with the attending, Dr. Long. I performed a history and physical examination of this patient and discussed the same with the dictator. I agree with the dictator's note. Any additional findings/opinions, etc. will be noted.
[2016-08-15 18:59] LABS: Glucose,Whole Blood 113 mg/dL (75-99)
[2016-08-15] MEDS: INSULIN REGULAR 100 UNIT in SODIUM CHLORIDE 0.9% 100 ML IV PRN (18:59)
[2016-08-15 20:15] LABS: Glucose,Whole Blood 120 mg/dL (75-99)
[2016-08-15 21:20] LABS: Glucose,Whole Blood 111 mg/dL (75-99)
[2016-08-15 22:06] LABS: Glucose,Whole Blood 107 mg/dL (75-99)
[2016-08-15] MEDS: LATANOPROST 0.005% OPHTH DROPS 2.5 ML BTL BOTH EYES SCH (22:20)
[2016-08-15 23:07] LABS: Glucose,Whole Blood 125 mg/dL (75-99)
[2016-08-16 00:02] LABS: Glucose,Whole Blood 124 mg/dL (75-99)
[2016-08-16] MEDS: PROPOFOL 500 MG in EMPTY BAG 1 BAG IV PRN ×8 (00:25→21:00)
[2016-08-16 01:08] LABS: Glucose,Whole Blood 120 mg/dL (75-99)
[2016-08-16 02:11] LABS: Glucose,Whole Blood 118 mg/dL (75-99)
[2016-08-16] MEDS: IPRATROPIUM-ALBUTEROL 3 ML NEB INHALATION SCH ×6 (03:18→23:39)
[2016-08-16 03:22] LABS: Glucose,Whole Blood 117 mg/dL (75-99)
[2016-08-16] MEDS: CLEVIDIPINE BUTYRATE 25 MG in EMPTY BAG 1 BAG IV PRN (04:18)
[2016-08-16] MEDS: MORPHINE SULFATE 2 MG/ML SYRINGE IVP PRN (04:18)
[2016-08-16] MEDS: HYDROcodone/APAP 5-325MG 1 EACH TAB PO PRN ×4 (04:21→21:42)
[2016-08-16 04:44] LABS: Glucose,Whole Blood 125 mg/dL (75-99)
[2016-08-16 05:33] LABS: Basophils % (A) 0 %; CH 32.7; CHCM 32.7; Eosinophils # (A) 0.1 k/uL (0-0.7); Eosinophils % (A) 1 %; HCT 32.4 % (39.0-53.0); HGB 10.9 gm/dL (13.0-17.5); Luc # (Auto) 0.18; Luc % (Auto) 2; Lymphocytes # (A) 3.1 k/uL (1.0-4.8); Lymphocytes % (A) 26 %; MCH 33.9 pg (25.0-35.0); MCHC 33.7 g/dL (31.0-37.0); MCV 100.7 fL (80.0-100.0); Macrocytosis Slight; Mean Platelet Volume 10.4; Monocytes # (A) 0.5 k/uL (0-1.0); Monocytes % (A) 4 %; Neutrophils # (A) 7.9 k/uL (1.3-7.7); Neutrophils % (A) 67 %; RBC 3.22 m/uL (4.30-5.90); RDW 14.8 % (11.5-15.5); WBC 11.9 k/uL (3.8-10.6); WBC (Perox) 12.03
[2016-08-16 05:49] LABS: ABG Base Excess -1.2 mmol/L; ABG HCO3 23 mmol/L (21-25); ABG PCO2 36 mmHg (35-45); ABG PH 7.42 (7.35-7.45); ABG PO2 61 mmHg (83-108); ABG TCO2 24 mmol/L (19-24)
[2016-08-16 05:52] LABS: Methylmalonic Acid 0.13 umol/L (<0.40)
[2016-08-16 06:10] LABS: Glucose,Whole Blood 130 mg/dL (75-99)
[2016-08-16 06:25] LABS: Calcium 8.1 mg/dL (8.4-10.2); Total Protein 4.8 g/dL (6.3-8.2)
[2016-08-16 06:49] LABS: Phosphorous 4.1 mg/dL (2.5-4.5); Potassium 4.2 mmol/L (3.5-5.1)
[2016-08-16 06:50] LABS: Magnesium 2.5 mg/dL (1.6-2.3)
--- NOTE | 2016-08-16 06:55 | XR ---
EXAMINATION TYPE: XR chest 1V portable DATE OF EXAM: 08/16/2016 4:51 AM HISTORY: post op cabg, mechanically ventillated. REFERENCE: Previous study dated 08/15/2016. FINDINGS: There has been a midline sternotomy. The patient is ET tube, NG tube and Austin-Laya catheter remain in place, unchanged in appearance. There is a left pleural drain in place. The heart is enlarged. There is bibasilar airspace disease. I suspect small effusions. IMPRESSION: 1. CARDIOMEGALY. 2. WORSENING BIBASILAR AIRSPACE DISEASE. 3. I SUSPECT SMALL EFFUSIONS.
[2016-08-16] MEDS: INSULIN REGULAR 100 UNIT in SODIUM CHLORIDE 0.9% 100 ML IV PRN (07:00)
[2016-08-16] MEDS ORDERED: FUROSEMIDE 10 MG/ML 4 ML VIAL IV STA (07:19)
[2016-08-16 07:52] LABS: Glucose,Whole Blood 136 mg/dL (75-99)
[2016-08-16] MEDS: SODIUM CHLORIDE 0.9% 1,000 ML IV SCH (07:55)
[2016-08-16] MEDS: MUPIROCIN 2% OINT 22 GM TUBE TOPICAL SCH ×2 (08:03→21:48)
[2016-08-16] MEDS: CHLORHEXIDINE GLUCONATE 15 ML CUP MUCOUS MEM SCH ×2 (08:03→21:47)
[2016-08-16] MEDS: PANTOPRAZOLE 40 MG/10 ML VIAL IVP SCH (08:03)
[2016-08-16] MEDS: METOPROLOL TARTRATE 25 MG TAB PO SCH ×2 (08:03→21:48)
[2016-08-16] MEDS: ATORVASTATIN 40 MG TAB PO SCH (08:03)
[2016-08-16] MEDS: DORZOLAMIDE HCL 2% DROPS 10 ML BTL LEFT EYE SCH (08:04)
--- NOTE | 2016-08-16 09:13 | PN ---
DATE OF SERVICE: 08/15/2016 ATTENDING NOTE: The patient seen and examined by me yesterday on 08/15/2016. I reviewed the note of my nurse practitioner, Ms. Kapadia and discussed with her. Patient is status post CABG and remains on the ventilator. Telemetry shows sinus rhythm. Patient is on IV propofol insulin, having significant amount of tracheal secretion, dirty in color, foul smelling. Patient also did spike a fever, started on antibiotics. On examination, vital signs noted. LUNGS: Decreased breath sounds. CARDIOVASCULAR: First and second sounds normal. CHEST: There is questionable infiltrate. ASSESSMENT: 1. Status post bypass. 2. Per Pulmonary because of increased trach secretions, foul smelling, empirically put on antibiotics. PLAN: Continue current medication and treatment plan. Supportive care. Patient remains on the ventilator.
[2016-08-16 09:30] LABS: Glucose,Whole Blood 108 mg/dL (75-99)
[2016-08-16] MEDS: ENOXAPARIN 80 MG/0.8 ML SYRINGE SQ SCH ×2 (10:12→21:47)
--- NOTE | 2016-08-16 10:16 | XR ---
EXAMINATION TYPE: XR abdomen 1V DATE OF EXAM ORDERED: 08/16/2016 10:05 AM HISTORY: abdominal distention. COMPARISON: None. FINDINGS: There has been a midline sternotomy. A left pleural drain is in place. An NG tube has its tip in the stomach. A battery pack projects over the epigastric region. A temperature probe projects over the lower pelvis. The abdominal gas pattern is normal. There is no evidence of obstruction. No definite free air is see n. No unusual calcifications are seen. Both hips are nonspherical. IMPRESSION: 1. POSTOPERATIVE CHANGE. 2. NO ACUTE INTRA-ABDOMINAL ABNORMALITY. 3. PLEASE CORRELATE CLINICALLY FOR FEMOROACETABULAR IMPINGEMENT SYNDROME IMPINGEMENT SYNDROME.
[2016-08-16 11:04] LABS: Glucose,Whole Blood 123 mg/dL (75-99)
--- NOTE | 2016-08-16 13:02 | P.PN ---
Subjective Principal diagnosis: Status post CABG postoperative day #3. 80-year-old male patient, complaining of exertional dyspnea over the past several months. The patient denied having any chest pain. 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 The patient was found to have occluded right coronary artery with collaterals filling from the left. The patient was found to have critical disease involving the left main coronary artery and critical disease involving diffuse marginal branch of circumflex and proximal LAD. Based on this, coronary artery bypass surgery was recommended. The patient was seen by cardiothoracic surgery and the tentative plan to undergo surgery on this patient is on Tuesday. The preoperative echocardiogram showed a preserved LV function with an ejection fraction of 50-55%. No evidence of any pulmonary hypertension. No evidence of any valvular abnormalities. There is evidence of hypertensive heart disease with concentric left ventricular hypertrophy. Chest x-ray shows no acute cardio pulmonary process. He has history of pulmonary embolism and DVT and the patient has been maintained on anticoagulation on outpatient basis with warfarin. On today's evaluation of 08/11/2016 the patient is stable. The patient has no specific complaints. The patient is using his incentive spirometer. The patient was found to have chronic thrombocytopenia and for that reason a hematology consultation was obtained. History of any chest pain. He remains on IV heparin. Awaiting surgery on Tuesday. A bedside spirometry is still to be done. On 08/13/2016 I'm seeing this patient following his coronary bypass surgery. The patient underwent the surgery without any major complication. I discussed the case with the thoracic surgeon and the intraoperative course was essentially uncomplicated. The patient currently is intubated on mechanical ventilator. He is still sedated. He is hemodynamically stable. He is on a nitroglycerin and Cleviprex Drip for tight blood pressure control. The patient' s cardiac output is at 6.3 with an index of 2.8. PA pressures 29/17. The patient is also has his chest tubes in place with total amount of output being low at this point despite his underlying thrombocytopenia. He is also on an insulin drip at 40 units an hour for blood sugar control. Chest x-ray shows adequate expansion of both lungs and the chest tubes, ET tube and the Roselle-Laya catheter in place. The blood gases showed a pH of 7.31 with a pCO2 of 48 and pO2 of 115 and it was not an FiO2 of 100% and I wean down the FiO2 down to 70% and the saturation is currently above 95%. The patient is also on assist control mode of ventilation with a PEEP of 5 and FiO2 of 70% with a tidal volume of 550. His rate is at 12. Postoperative platelet counts is at 42,000. Hemoglobin is at 10.9. The patient has not required any platelet transfusions. On 08/14/2016 the patient remains intubated on a mechanical ventilator. We failed to wean and extubate this patient yesterday because of oxygenation problems. This morning, the patient remained on assist control mode at the rate of 12, tidal volume 500, FiO2 of 60% and a PEEP of 5. The most recent blood gases showed a pH of 7.44 with a pCO2 of 24 and pO2 of 67. Chest x-ray is showing regular postsurgical changes with a mediastinal and the pleural chest tubes in place, ET tube is in a good location. The patient hemodynamically stable. He remains on a combination of nitroglycerin and Cleviprex drip for blood pressure control. His cardiac output as above 7 and the index is at 3.5. Is producing adequate amount of urine output. He remains sedated with Diprivan which is running at 30 mics. Nitroglycerin drip is running at 5 mics per minute and the Cleviprex is at 60 mg an hour. The patient is also on insulin drip at 10 units an hour. Output from the chest tubes have been 20 mL an hour. Meanwhile the patient had developed an acute kidney injury with a creatinine being up to 1.3. The bicarb level is down to 16 and the patient has a informed of non-anion gap metabolic acidosis. On 08/15/2016, the patient remains intubated. I was unable to wean this patient off the mechanical ventilator for several reasons. First and foremost, the patient was having borderline oxygenation. At the later stage, the patient started acting septic where he started having chills and fever and purulent foul -smelling respiratory secretions were also suctioned from his orotracheal tube. Based on all this, cultures and pain and the patient was started on IV Fortaz. Meanwhile, the patient was given IV fluids, overnight he received a bolus of normal saline 1 L and 2 boluses of albumin 12.5 g which improved his urine output. At this point in time, the patient is postop day #2. He is resting comfortably in bed. He is sedated with Diprivan and is calm and comfortable. He is an assist-control mode of ventilation and the most recent vent settings include an assist-control of 12, tidal volume of 600, FiO2 of 70% and a PEEP of 8. The most recent blood gases showed a pH of 7.47 with a pCO2 of 30 and pO2 of 78. Nevertheless, his pulse ox currently on the monitor is at 99% and FiO2 has been drop down to 60% and we will gradually weaning it down to maintain a saturation above 95%. He is afebrile for now. He still has a right IJ Roselle-Laya catheter and hemodynamic parameters show a cardiac output of 6 with an index of 2.7. The patient's white cell count is not elevated at 5.7. He will was stable at 10.6. Renal function is impaired with a creatinine of 1.4. He is off the Catapres drip. He is off the nitroglycerin drip. He is producing around 20-30 mL of urine output on an hourly basis and he has gained significant amount of weight and there is third spacing. Chest x-ray shows increased tone vessel markings. ET tube and NG tube are all in good location. The KARL drain in the left lower extremity is in place and the total amount of output is 10 mL. The 2 mediastinal chest tubes in the left pleural chest tubes are also in place with minimal amount of output. Platelet count is stable at 40 ,000. He insulin drip is on hold for now. On 08/16/2016, patient remains intubated, his gases are very marginal, remains on FiO2 of 70%, PEEP is now up to 12, chest x-ray shows what looks like a right lower lobe pneumonia and consolidation in the medial aspect of the right lower lobe. Patient is on broad-spectrum antibiotics coverage. Ventilator settings were reviewed, she is presently on FiO2 of 70%, PEEP of 12, tidal volume of 550 assist control rate of 14. Labs were reviewed, WBC count is 11.9 hemoglobin is 10.9. ABG showed a pO2 of 61 pCO2 of 36 pH of 7.42. Basic metabolic profile is normal however his BUN is 41 and creatinine is 1.40 baseline creatinine was 1.0 on 08/13. Chest x-ray showed cardiomegaly, worsening by basilar airspace disease especially at the right base and small pleural effusions noted. Patient is receiving Lasix daily. Remains on propofol drip. And fully sedated. Objective - Vital Signs Vital signs: Vital Signs Temp 98.2 F 08/16/16 12:00 Pulse 77 08/16/16 12:11 Resp 28 H 08/16/16 12:00 BP 93/45 08/16/16 12:00 Pulse Ox 99 08/16/16 12:00 Intake & Output 08/15/16 08/16/16 08/16/16 18:59 06:59 18:59 Intake Total 5965.016 6995.577 523.633 Output Total 7883 377 4906 Balance -537.377 471.577 -536.367 Weight 121.6 kg 120.1 kg Intake: IV 348 169 48 0.9@75 20 CO/CI 70 70 30 Lactated Ringers 1,000 ml 50 @ 20 mls/hr IV .Q24H [facility] Rx#:[id number] Water For Injection, 75 Sterile 1,000 ml @ 50 mls /hr IV .[id number] [facility] with Sodium Acetate 150 meq Rx #:[id number] cefTAZidime 2 gm In 100 Sodium Chloride 0.9% 100 ml @ 100 mls/hr IVPB Q12HR [facility] Rx#:[id number] pressure bag 33 99 18 Intake, IV Titration 1007.623 984.577 475.633 Amount Clevidipine Butyrate 25 3.767 46.233 mg In Empty Bag 1 bag @ 1 MG/HR 2 mls/hr IV .Q24H PRN Rx#:[id number] Insulin Regular 100 unit 75.758 52.408 29.4 In Sodium Chloride 0.9% 100 ml @ Titrate IV .Q0M PRN Rx#:[id number] Magnesium Sulfate-D5w Pmx 200 1 gm In Dextrose/Water 1 100ml.bag @ 100 mls/hr IVPB Q1H [facility] Rx#: [id number] Propofol 500 mg In Empty 181.865 278.402 50 Bag 1 bag @ Titrate IV . Q0M PRN Rx#:[id number] Sodium Chloride 0.9% 1, 550 550 250 000 ml @ 50 mls/hr IV . Q20H [facility] Rx#:[id number] cefTAZidime 2 gm In 100 100 Sodium Chloride 0.9% 100 ml @ 100 mls/hr IVPB Q12HR [facility] Rx#:[id number] Output: Chest Tube Drainage 48 30 10 Chest Tube Bilateral 40 Mediastinal Chest Tube Left Lateral 8 30 10 Chest Gastric Drainage 100 Drainage 80 Left Calf 80 Urine 1845 572 950 Other: Voiding Method Indwelling Catheter Indwelling Catheter Indwelling Catheter ABP, PAP, CO, CI - Last Documented Arterial Blood Pressure 114/62 Pulmonary Artery Pressure 41/23 Cardiac Output 7.4 Cardiac Index 3.3 - Exam The patient is intubated on a mechanical ventilator. He is sedated with Diprivan and calm and comfortable. Orogastric and orotracheal tube in place. The patient has a right IJ Roselle-Laya catheter Cordis in place.Head exam was generally normal. There was no scleral icterus or corneal arcus. Mucous membranes were moist.Neck was supple and without jugular venous distension, thyromegaly, or carotid bruits. Carotids were easily palpable bilaterally. There was no adenopathy. Lung sounds are equal and symmetrical breath sounds without any rhonchi or wheezes or any crackles. All of the chest tubes are all in place. Heart sounds are regular, positive S1-S2. No cervical murmurs appreciated. Sternum stable clean and intact.Abdominal exam slightly distended and diminished bowel sounds.. The abdomen was soft, non-tender, and without masses, organomegaly, or appreciable enlargement of the abdominal aorta. Extremities show diminished pulses. There is no cyanosis or clubbing. All of the surgical wound sites are dry clean and intact at this point. Neurologically the patient remains sedated. - Labs CBC & Chem 7: 08/16/16 04:50 08/16/16 04:50 Labs: Abnormal Lab Results - Last 24 Hours (Table) 08/15/16 08/15/16 08/15/16 Range/Units 13:08 15:04 16:30 WBC (3.8-10.6) k/uL RBC (4.30-5.90) m/uL Hgb (13.0-17.5) gm/dL Hct (39.0-53.0) % MCV (80.0-100.0) fL Plt Count (150-450) k/uL Neutrophils # (1.3-7.7) k/uL ABG pH (7.35-7.45) ABG pCO2 (35-45) mmHg ABG pO2 (83-108) mmHg ABG O2 Saturation (94-97) % ABG Lactic Acid (0.5-1.6) mmol/L BUN (9-20) mg/dL Creatinine (0.66-1.25) mg/dL Glucose (74-99) mg/dL POC Glucose (mg/dL) 150 H 129 H 105 H (75-99) mg/dL Calcium (8.4-10.2) mg/dL Magnesium (1.6-2.3) mg/dL Total Bilirubin (0.2-1.3) mg/dL Total Protein (6.3-8.2) g/dL Albumin (3.5-5.0) g/dL 08/15/16 08/15/16 08/15/16 Range/Units 16:59 17:03 18:03 WBC (3.8-10.6) k/uL RBC (4.30-5.90) m/uL Hgb (13.0-17.5) gm/dL Hct (39.0-53.0) % MCV (80.0-100.0) fL Plt Count (150-450) k/uL Neutrophils # (1.3-7.7) k/uL ABG pH 7.49 H (7.35-7.45) ABG pCO2 30 L (35-45) mmHg ABG pO2 79 L (83-108) mmHg ABG O2 Saturation (94-97) % ABG Lactic Acid (0.5-1.6) mmol/L BUN (9-20) mg/dL Creatinine (0.66-1.25) mg/dL Glucose (74-99) mg/dL POC Glucose (mg/dL) 113 H 125 H (75-99) mg/dL Calcium (8.4-10.2) mg/dL Magnesium (1.6-2.3) mg/dL Total Bilirubin (0.2-1.3) mg/dL Total Protein (6.3-8.2) g/dL Albumin (3.5-5.0) g/dL 08/15/16 08/15/16 08/15/16 Range/Units 18:58 20:13 21:19 WBC (3.8-10.6) k/uL RBC (4.30-5.90) m/uL Hgb (13.0-17.5) gm/dL Hct (39.0-53.0) % MCV (80.0-100.0) fL Plt Count (150-450) k/uL Neutrophils # (1.3-7.7) k/uL ABG pH (7.35-7.45) ABG pCO2 (35-45) mmHg ABG pO2 (83-108) mmHg ABG O2 Saturation (94-97) % ABG Lactic Acid (0.5-1.6) mmol/L BUN (9-20) mg/dL Creatinine (0.66-1.25) mg/dL Glucose (74-99) mg/dL POC Glucose (mg/dL) 113 H 120 H 111 H (75-99) mg/dL Calcium (8.4-10.2) mg/dL Magnesium (1.6-2.3) mg/dL Total Bilirubin (0.2-1.3) mg/dL Total Protein (6.3-8.2) g/dL Albumin (3.5-5.0) g/dL 08/15/16 08/15/16 08/15/16 Range/Units 21:20 22:03 23:04 WBC (3.8-10.6) k/uL RBC (4.30-5.90) m/uL Hgb (13.0-17.5) gm/dL Hct (39.0-53.0) % MCV (80.0-100.0) fL Plt Count (150-450) k/uL Neutrophils # (1.3-7.7) k/uL ABG pH (7.35-7.45) ABG pCO2 (35-45) mmHg ABG pO2 (83-108) mmHg ABG O2 Saturation (94-97) % ABG Lactic Acid 2.5 H* (0.5-1.6) mmol/L BUN (9-20) mg/dL Creatinine (0.66-1.25) mg/dL Glucose (74-99) mg/dL POC Glucose (mg/dL) 107 H 125 H (75-99) mg/dL Calcium (8.4-10.2) mg/dL Magnesium (1.6-2.3) mg/dL Total Bilirubin (0.2-1.3) mg/dL Total Protein (6.3-8.2) g/dL Albumin (3.5-5.0) g/dL 08/16/16 08/16/16 08/16/16 Range/Units 00:01 01:06 02:08 WBC (3.8-10.6) k/uL RBC (4.30-5.90) m/uL Hgb (13.0-17.5) gm/dL Hct (39.0-53.0) % MCV (80.0-100.0) fL Plt Count (150-450) k/uL Neutrophils # (1.3-7.7) k/uL ABG pH (7.35-7.45) ABG pCO2 (35-45) mmHg ABG pO2 (83-108) mmHg ABG O2 Saturation (94-97) % ABG Lactic Acid (0.5-1.6) mmol/L BUN (9-20) mg/dL Creatinine (0.66-1.25) mg/dL Glucose (74-99) mg/dL POC Glucose (mg/dL) 124 H 120 H 118 H (75-99) mg/dL Calcium (8.4-10.2) mg/dL Magnesium (1.6-2.3) mg/dL Total Bilirubin (0.2-1.3) mg/dL Total Protein (6.3-8.2) g/dL Albumin (3.5-5.0) g/dL 08/16/16 08/16/16 08/16/16 Range/Units 03:21 04:43 04:50 WBC (3.8-10.6) k/uL RBC (4.30-5.90) m/uL Hgb (13.0-17.5) gm/dL Hct (39.0-53.0) % MCV (80.0-100.0) fL Plt Count (150-450) k/uL Neutrophils # (1.3-7.7) k/uL ABG pH (7.35-7.45) ABG pCO2 (35-45) mmHg ABG pO2 (83-108) mmHg ABG O2 Saturation (94-97) % ABG Lactic Acid (0.5-1.6) mmol/L BUN 41 H (9-20) mg/dL Creatinine 1.40 H (0.66-1.25) mg/dL Glucose 127 H (74-99) mg/dL POC Glucose (mg/dL) 117 H 125 H (75-99) mg/dL Calcium 8.1 L (8.4-10.2) mg/dL Magnesium 2.5 H (1.6-2.3) mg/dL Total Bilirubin 2.0 H (0.2-1.3) mg/dL Total Protein 4.8 L (6.3-8.2) g/dL Albumin 2.5 L (3.5-5.0) g/dL 08/16/16 08/16/16 08/16/16 Range/Units 04:50 04:50 05:25 WBC 11.9 H (3.8-10.6) k/uL RBC 3.22 L (4.30-5.90) m/uL Hgb 10.9 L (13.0-17.5) gm/dL Hct 32.4 L (39.0-53.0) % MCV 100.7 H (80.0-100.0) fL Plt Count 61 L D (150-450) k/uL Neutrophils # 7.9 H (1.3-7.7) k/uL ABG pH (7.35-7.45) ABG pCO2 (35-45) mmHg ABG pO2 61 L (83-108) mmHg ABG O2 Saturation 92.0 L (94-97) % ABG Lactic Acid 2.9 H* (0.5-1.6) mmol/L BUN (9-20) mg/dL Creatinine (0.66-1.25) mg/dL Glucose (74-99) mg/dL POC Glucose (mg/dL) (75-99) mg/dL Calcium (8.4-10.2) mg/dL Magnesium (1.6-2.3) mg/dL Total Bilirubin (0.2-1.3) mg/dL Total Protein (6.3-8.2) g/dL Albumin (3.5-5.0) g/dL 08/16/16 08/16/16 08/16/16 Range/Units 06:08 07:51 09:29 WBC (3.8-10.6) k/uL RBC (4.30-5.90) m/uL Hgb (13.0-17.5) gm/dL Hct (39.0-53.0) % MCV (80.0-100.0) fL Plt Count (150-450) k/uL Neutrophils # (1.3-7.7) k/uL ABG pH (7.35-7.45) ABG pCO2 (35-45) mmHg ABG pO2 (83-108) mmHg ABG O2 Saturation (94-97) % ABG Lactic Acid (0.5-1.6) mmol/L BUN (9-20) mg/dL Creatinine (0.66-1.25) mg/dL Glucose (74-99) mg/dL POC Glucose (mg/dL) 130 H 136 H 108 H (75-99) mg/dL Calcium (8.4-10.2) mg/dL Magnesium (1.6-2.3) mg/dL Total Bilirubin (0.2-1.3) mg/dL Total Protein (6.3-8.2) g/dL Albumin (3.5-5.0) g/dL 08/16/16 Range/Units 11:03 WBC (3.8-10.6) k/uL RBC (4.30-5.90) m/uL Hgb (13.0-17.5) gm/dL Hct (39.0-53.0) % MCV (80.0-100.0) fL Plt Count (150-450) k/uL Neutrophils # (1.3-7.7) k/uL ABG pH (7.35-7.45) ABG pCO2 (35-45) mmHg ABG pO2 (83-108) mmHg ABG O2 Saturation (94-97) % ABG Lactic Acid (0.5-1.6) mmol/L BUN (9-20) mg/dL Creatinine (0.66-1.25) mg/dL Glucose (74-99) mg/dL POC Glucose (mg/dL) 123 H (75-99) mg/dL Calcium (8.4-10.2) mg/dL Magnesium (1.6-2.3) mg/dL Total Bilirubin (0.2-1.3) mg/dL Total Protein (6.3-8.2) g/dL Albumin (3.5-5.0) g/dL Microbiology - Last 24 Hours (Table) 08/14/16 19:56 Gram Stain - Preliminary Sputum Sputum Culture - Preliminary Gram Neg Bacilli Assessment and Plan Plan: 1 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 The patient underwent carotid bypass surgery and currently is postop day #3 2 postoperative hypoxemia with difficulties and weaning due to ongoing oxygenation problem. Meanwhile the patient is producing purulent sputum and he had fever along with foul-smelling rest or secretions. Cultures were obtained and is showing gram-negative and gram-positive cocci and the patient is currently on IV Fortaz. White cell count is not elevated. No hypotension. Mild lactic acidosis is present. 2 diabetes mellitus on insulin drip for blood sugar control 3 postoperative hypertension currently off nitroglycerin drip and Cleviprex 4 post thoracotomy respiratory failure, expected, currently the oxygenation remains borderline . Chest x-ray findings are consistent with increased interstitial markings probably related to fluid overload. The patient has adequate cardiac index output for now. Hemodynamically stable. 5 previous history of DVT and pulmonary embolism , maintained on warfarin outpatient basis, patient will be restarted on Lovenox 80 mg subcu every 12 hours beginning today. In the meantime we'll continue to monitor his low platelets. Patient has chronic thrombocytopenia to begin with. 6 thrombocytopenia him a stable with a platelet count, without evidence of any acute bleeding 7 acute kidney injury, creatinine is up to 1.4 Recommendation: Continue ventilatory support, PEEP was increased to 12, wean FiO2 gradually down now after increasing PEEP if tolerated. Maintain a pulse oximetry of over 93% continue antibiotics in the form IV Fortaz, continue diuretics intermittently, continue propofol drip, I held his feeding earlier today only because of abdominal distention, that would likely be started again later today or in a.m. Prognosis remains guarded, we'll continue to follow. Heparin in the form of Lovenox was restarted at 80 mg subcu every 12 hours knowing that the patient had previous history of DVT and pulmonary embolism. Presently I cannot send the patient down for a CT angiogram of the chest knowing that his creatinine is 1.4. Critical care time is 34 minutes. Time with Patient: Greater than 30
[2016-08-16 13:10] LABS: Glucose,Whole Blood 110 mg/dL (75-99)
--- NOTE | 2016-08-16 14:33 | P.PN ---
Subjective Principal diagnosis: Multivessel coronary artery disease POD #3 coronary artery bypass grafting 2 vessels (left internal mammary artery to left anterior descending artery, saphenous vein graft to obtuse marginal artery). Endoscopic vein harvest left greater saphenous vein. Epi-aortic ultrasound. Transesophageal echocardiogram. Patient remains sedated on mechanical ventilation. Objective - Vital Signs Vital signs: Vital Signs Temp 98.2 F 08/16/16 12:00 Pulse 78 08/16/16 14:00 Resp 16 08/16/16 14:00 BP 93/45 08/16/16 13:00 Pulse Ox 97 08/16/16 14:00 Intake & Output 08/15/16 08/16/16 08/16/16 18:59 06:59 18:59 Intake Total 3044.098 0765.577 637.216 Output Total 1196 654 9644 Balance -537.377 471.577 -622.784 Weight 121.6 kg 120.1 kg Intake: IV 348 169 51 0.9@75 20 CO/CI 70 70 30 Lactated Ringers 1,000 ml 50 @ 20 mls/hr IV .Q24H [facility] Rx#:[id number] Water For Injection, 75 Sterile 1,000 ml @ 50 mls /hr IV .[id number] [facility] with Sodium Acetate 150 meq Rx #:[id number] cefTAZidime 2 gm In 100 Sodium Chloride 0.9% 100 ml @ 100 mls/hr IVPB Q12HR [facility] Rx#:[id number] pressure bag 33 99 21 Intake, IV Titration 1007.623 984.577 586.216 Amount Clevidipine Butyrate 25 3.767 46.233 mg In Empty Bag 1 bag @ 1 MG/HR 2 mls/hr IV .Q24H [facility]N Rx#:[id number] Insulin Regular 100 unit 75.758 52.408 39.983 In Sodium Chloride 0.9% 100 ml @ Titrate IV .Q0M PRN Rx#:[id number] Magnesium Sulfate-D5w Pmx 200 1 gm In Dextrose/Water 1 100ml.bag @ 100 mls/hr IVPB Q1H [facility] Rx#: [id number] Propofol 500 mg In Empty 181.865 278.402 100 Bag 1 bag @ Titrate IV . Q0M PRN Rx#:[id number] Sodium Chloride 0.9% 1, 550 550 300 000 ml @ 50 mls/hr IV . Q20H [facility] Rx#:[id number] cefTAZidime 2 gm In 100 100 Sodium Chloride 0.9% 100 ml @ 100 mls/hr IVPB Q12HR [facility] Rx#:[id number] Output: Chest Tube Drainage 48 30 10 Chest Tube Bilateral 40 Mediastinal Chest Tube Left Lateral 8 30 10 Chest Gastric Drainage 100 Drainage 80 Left Calf 80 Urine 8663 664 1247 Other: Voiding Method Indwelling Catheter Indwelling Catheter Indwelling Catheter ABP, PAP, CO, CI - Last Documented Arterial Blood Pressure 119/65 Pulmonary Artery Pressure 41/23 Cardiac Output 7.4 Cardiac Index 3.3 - Constitutional General appearance: Present: no acute distress - Respiratory Details: Lungs sounds diminished bilaterally. Respirations even, nonlabored on mechanical ventilation. Current ventilator settings FiO2 60%, respiratory rate 14, tidal volume 550, PEEP 12. Left pleural chest tube with minimal serous output. No air leak present. - Cardiovascular Details: S1, S2 present. Regular rate and rhythm, normal sinus rhythm on telemetry. Sternum stable. A/V epicardial pacemaker wires connected to generator, generator turned off. Heart hugger in place. Teds/SCDs present. Generalized edema present. - Gastrointestinal Gastrointestinal Comment(s): Abdomen soft, nontender, slightly distended. Hypoactive bowel sounds present. OG tube present. - Genitourinary Genitourinary Comment(s): Thornton present draining clear, yellow urine. Output approximated 30 mL/h. - Integumentary Integumentary Comment(s): Anterior chest incision well approximated and covered with dry intact dressing. Left lower extremity EVH site well approximated with KARL drain present. - Psychiatric Psychiatric Comment(s): Currently sedated on mechanical ventilation. - Allied health notes Allied health notes reviewed: nursing - Labs CBC & Chem 7: 08/16/16 04:50 08/16/16 04:50 Labs: Abnormal Lab Results - Last 24 Hours (Table) 08/15/16 08/15/16 08/15/16 Range/Units 15:04 16:30 16:59 WBC (3.8-10.6) k/uL RBC (4.30-5.90) m/uL Hgb (13.0-17.5) gm/dL Hct (39.0-53.0) % MCV (80.0-100.0) fL Plt Count (150-450) k/uL Neutrophils # (1.3-7.7) k/uL ABG pH (7.35-7.45) ABG pCO2 (35-45) mmHg ABG pO2 (83-108) mmHg ABG O2 Saturation (94-97) % ABG Lactic Acid (0.5-1.6) mmol/L BUN (9-20) mg/dL Creatinine (0.66-1.25) mg/dL Glucose (74-99) mg/dL POC Glucose (mg/dL) 129 H 105 H 113 H (75-99) mg/dL Calcium (8.4-10.2) mg/dL Magnesium (1.6-2.3) mg/dL Total Bilirubin (0.2-1.3) mg/dL Total Protein (6.3-8.2) g/dL Albumin (3.5-5.0) g/dL 08/15/16 08/15/16 08/15/16 Range/Units 17:03 18:03 18:58 WBC (3.8-10.6) k/uL RBC (4.30-5.90) m/uL Hgb (13.0-17.5) gm/dL Hct (39.0-53.0) % MCV (80.0-100.0) fL Plt Count (150-450) k/uL Neutrophils # (1.3-7.7) k/uL ABG pH 7.49 H (7.35-7.45) ABG pCO2 30 L (35-45) mmHg ABG pO2 79 L (83-108) mmHg ABG O2 Saturation (94-97) % ABG Lactic Acid (0.5-1.6) mmol/L BUN (9-20) mg/dL Creatinine (0.66-1.25) mg/dL Glucose (74-99) mg/dL POC Glucose (mg/dL) 125 H 113 H (75-99) mg/dL Calcium (8.4-10.2) mg/dL Magnesium (1.6-2.3) mg/dL Total Bilirubin (0.2-1.3) mg/dL Total Protein (6.3-8.2) g/dL Albumin (3.5-5.0) g/dL 08/15/16 08/15/16 08/15/16 Range/Units 20:13 21:19 21:20 WBC (3.8-10.6) k/uL RBC (4.30-5.90) m/uL Hgb (13.0-17.5) gm/dL Hct (39.0-53.0) % MCV (80.0-100.0) fL Plt Count (150-450) k/uL Neutrophils # (1.3-7.7) k/uL ABG pH (7.35-7.45) ABG pCO2 (35-45) mmHg ABG pO2 (83-108) mmHg ABG O2 Saturation (94-97) % ABG Lactic Acid 2.5 H* (0.5-1.6) mmol/L BUN (9-20) mg/dL Creatinine (0.66-1.25) mg/dL Glucose (74-99) mg/dL POC Glucose (mg/dL) 120 H 111 H (75-99) mg/dL Calcium (8.4-10.2) mg/dL Magnesium (1.6-2.3) mg/dL Total Bilirubin (0.2-1.3) mg/dL Total Protein (6.3-8.2) g/dL Albumin (3.5-5.0) g/dL 08/15/16 08/15/16 08/16/16 Range/Units 22:03 23:04 00:01 WBC (3.8-10.6) k/uL RBC (4.30-5.90) m/uL Hgb (13.0-17.5) gm/dL Hct (39.0-53.0) % MCV (80.0-100.0) fL Plt Count (150-450) k/uL Neutrophils # (1.3-7.7) k/uL ABG pH (7.35-7.45) ABG pCO2 (35-45) mmHg ABG pO2 (83-108) mmHg ABG O2 Saturation (94-97) % ABG Lactic Acid (0.5-1.6) mmol/L BUN (9-20) mg/dL Creatinine (0.66-1.25) mg/dL Glucose (74-99) mg/dL POC Glucose (mg/dL) 107 H 125 H 124 H (75-99) mg/dL Calcium (8.4-10.2) mg/dL Magnesium (1.6-2.3) mg/dL Total Bilirubin (0.2-1.3) mg/dL Total Protein (6.3-8.2) g/dL Albumin (3.5-5.0) g/dL 08/16/16 08/16/16 08/16/16 Range/Units 01:06 02:08 03:21 WBC (3.8-10.6) k/uL RBC (4.30-5.90) m/uL Hgb (13.0-17.5) gm/dL Hct (39.0-53.0) % MCV (80.0-100.0) fL Plt Count (150-450) k/uL Neutrophils # (1.3-7.7) k/uL ABG pH (7.35-7.45) ABG pCO2 (35-45) mmHg ABG pO2 (83-108) mmHg ABG O2 Saturation (94-97) % ABG Lactic Acid (0.5-1.6) mmol/L BUN (9-20) mg/dL Creatinine (0.66-1.25) mg/dL Glucose (74-99) mg/dL POC Glucose (mg/dL) 120 H 118 H 117 H (75-99) mg/dL Calcium (8.4-10.2) mg/dL Magnesium (1.6-2.3) mg/dL Total Bilirubin (0.2-1.3) mg/dL Total Protein (6.3-8.2) g/dL Albumin (3.5-5.0) g/dL 08/16/16 08/16/16 08/16/16 Range/Units 04:43 04:50 04:50 WBC 11.9 H (3.8-10.6) k/uL RBC 3.22 L (4.30-5.90) m/uL Hgb 10.9 L (13.0-17.5) gm/dL Hct 32.4 L (39.0-53.0) % MCV 100.7 H (80.0-100.0) fL Plt Count 61 L D (150-450) k/uL Neutrophils # 7.9 H (1.3-7.7) k/uL ABG pH (7.35-7.45) ABG pCO2 (35-45) mmHg ABG pO2 (83-108) mmHg ABG O2 Saturation (94-97) % ABG Lactic Acid (0.5-1.6) mmol/L BUN 41 H (9-20) mg/dL Creatinine 1.40 H (0.66-1.25) mg/dL Glucose 127 H (74-99) mg/dL POC Glucose (mg/dL) 125 H (75-99) mg/dL Calcium 8.1 L (8.4-10.2) mg/dL Magnesium 2.5 H (1.6-2.3) mg/dL Total Bilirubin 2.0 H (0.2-1.3) mg/dL Total Protein 4.8 L (6.3-8.2) g/dL Albumin 2.5 L (3.5-5.0) g/dL 08/16/16 08/16/16 08/16/16 Range/Units 04:50 05:25 06:08 WBC (3.8-10.6) k/uL RBC (4.30-5.90) m/uL Hgb (13.0-17.5) gm/dL Hct (39.0-53.0) % MCV (80.0-100.0) fL Plt Count (150-450) k/uL Neutrophils # (1.3-7.7) k/uL ABG pH (7.35-7.45) ABG pCO2 (35-45) mmHg ABG pO2 61 L (83-108) mmHg ABG O2 Saturation 92.0 L (94-97) % ABG Lactic Acid 2.9 H* (0.5-1.6) mmol/L BUN (9-20) mg/dL Creatinine (0.66-1.25) mg/dL Glucose (74-99) mg/dL POC Glucose (mg/dL) 130 H (75-99) mg/dL Calcium (8.4-10.2) mg/dL Magnesium (1.6-2.3) mg/dL Total Bilirubin (0.2-1.3) mg/dL Total Protein (6.3-8.2) g/dL Albumin (3.5-5.0) g/dL 08/16/16 08/16/16 08/16/16 Range/Units 07:51 09:29 11:03 WBC (3.8-10.6) k/uL RBC (4.30-5.90) m/uL Hgb (13.0-17.5) gm/dL Hct (39.0-53.0) % MCV (80.0-100.0) fL Plt Count (150-450) k/uL Neutrophils # (1.3-7.7) k/uL ABG pH (7.35-7.45) ABG pCO2 (35-45) mmHg ABG pO2 (83-108) mmHg ABG O2 Saturation (94-97) % ABG Lactic Acid (0.5-1.6) mmol/L BUN (9-20) mg/dL Creatinine (0.66-1.25) mg/dL Glucose (74-99) mg/dL POC Glucose (mg/dL) 136 H 108 H 123 H (75-99) mg/dL Calcium (8.4-10.2) mg/dL Magnesium (1.6-2.3) mg/dL Total Bilirubin (0.2-1.3) mg/dL Total Protein (6.3-8.2) g/dL Albumin (3.5-5.0) g/dL 08/16/16 Range/Units 13:08 WBC (3.8-10.6) k/uL RBC (4.30-5.90) m/uL Hgb (13.0-17.5) gm/dL Hct (39.0-53.0) % MCV (80.0-100.0) fL Plt Count (150-450) k/uL Neutrophils # (1.3-7.7) k/uL ABG pH (7.35-7.45) ABG pCO2 (35-45) mmHg ABG pO2 (83-108) mmHg ABG O2 Saturation (94-97) % ABG Lactic Acid (0.5-1.6) mmol/L BUN (9-20) mg/dL Creatinine (0.66-1.25) mg/dL Glucose (74-99) mg/dL POC Glucose (mg/dL) 110 H (75-99) mg/dL Calcium (8.4-10.2) mg/dL Magnesium (1.6-2.3) mg/dL Total Bilirubin (0.2-1.3) mg/dL Total Protein (6.3-8.2) g/dL Albumin (3.5-5.0) g/dL Microbiology - Last 24 Hours (Table) 08/14/16 19:56 Gram Stain - Preliminary Sputum Sputum Culture - Preliminary Gram Neg Bacilli - Imaging and Cardiology Chest x-ray: image reviewed Assessment and Plan (1) Diabetes Status: Acute (2) Hyperlipidemia Status: Acute (3) History of pulmonary embolus (PE) Status: Acute (4) History of deep vein thrombosis Status: Acute (5) Thrombocytopenia Status: Acute (6) Coronary artery disease Status: Acute Plan: 1. Continue beta abran, statin. Aspirin, Plavix on hold secondary to thrombocytopenia. 2. Lovenox added per primary. 3. Ventilator management per pulmonology. Wean O2 as tolerated. Lasix given IV push this morning per pulmonology. 4. Antibiotics per pulmonary. Will follow cultures. 5. Daily labs, chest x-rays. 6. GI/DVT prophylaxis. 7. More recommendations as patient progresses. Time with Patient: Greater than 30
[2016-08-16 14:46] LABS: Glucose,Whole Blood 130 mg/dL (75-99)
[2016-08-16] MEDS: prednisoLONE ACETATE 1% OPHTH DROPS 1 ML BTL LEFT EYE SCH (15:13)
[2016-08-16 16:48] LABS: Glucose,Whole Blood 142 mg/dL (75-99)
[2016-08-16] MEDS ORDERED: DEXTROSE 5% IN WATER 100 ML with AMIODARONE 150 MG IV ONE (17:03)
[2016-08-16] MEDS: AMIODARONE 450 MG in DEXTROSE 5% IN WATER 250 ML IV SCH ×2 (18:00)
[2016-08-16 18:48] LABS: Glucose,Whole Blood 137 mg/dL (75-99)
[2016-08-16 20:23] LABS: Glucose,Whole Blood 134 mg/dL (75-99)
--- NOTE | 2016-08-16 22:06 | PN ---
DATE OF SERVICE: 08/16/2016 PRESENTING COMPLAINT: Status post CABG. INTERVAL HISTORY: This is a patient who is status post CABG x2 and is currently on the ventilator with an FiO2 of 80%, PEEP of 8. Telemetry shows sinus rhythm. Patient's drips include lactated Ringer's IV, propofol, insulin, ( ), which was subsequently weaned off during my visit. Patient has one left pleural chest tube in place. Patient does appear comfortable on the ventilator. Review of systems cannot be done; patient is intubated. CURRENT MEDICATIONS: Reviewed above. PHYSICAL EXAMINATION: VITAL SIGNS: Temperature 98.2, pulse 90, respirations 15, blood pressure 126/58, oxygen saturation 98% on FiO2 of 80%. GENERAL APPEARANCE: Patient is lying comfortably in bed, on the ventilator, breathing comfortably. Appears restful. EYES: Pupils equal. Conjunctivae normal. NECK: JVD unable to assess. Mass not palpable. RESPIRATORY: Effort normal on the ventilator. LUNGS: Diminished breath sounds bilaterally. CARDIOVASCULAR: First and second sounds noted. Generalized edema. CHEST WALL: Patient has one chest tube. Midline incision covered with a surgical dressing. ABDOMEN: Soft, nontender. Liver and spleen not palpable. NEUROLOGIC: Pupils equal, plantars ( )equivocal. INVESTIGATIONS: White blood cell count 11.9, hemoglobin 10.9, platelet count 61. Sodium 139, potassium 4.2. BUN 41, creatinine 1.40. Chest x-ray shows cardiomegaly, worsening bibasilar airspace disease; suspect small effusions. ASSESSMENT: 1. Status post coronary artery bypass graft for triple-vessel coronary artery disease, slow to respond. 2. Coronary artery disease. 3. Diabetes mellitus, type 2, on oral hypoglycemics. 4. Chronic deep vein thrombosis, pulmonary embolism, on Coumadin fci. 5. Hyperlipidemia. 6. 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 7. Benign prosthetic hypertrophy. 8. 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 9. Postoperative ventilator support, slow to wean. PLAN: Continue current medication and treatment plan. Pulmonary and Cardiovascular Surgery are currently following the patient. Pulmonology continues with ventilator management and support. Continue to attempt to wean patient and prepare for extubation. Patient has likely developed pneumonia, per Pulmonology's note. Therefore patient remains intubated and antibiotic coverage has been provided. Cultures have been sent. Patient received additional doses of Lasix overnight in efforts to diurese patient. Tube feedings have been initiated. Will continue to follow. Patient was seen and examined by nurse practitioner, Fiorella Kapadia, and all elements of the case were discussed with the attending, Dr. Long.
[2016-08-16 22:21] LABS: Basophils % (A) 0 %; CH 32.7; CHCM 32.6; Eosinophils # (A) 0.1 k/uL (0-0.7); Eosinophils % (A) 1 %; HCT 32.3 % (39.0-53.0); HDW 2.68; HGB 10.5 gm/dL (13.0-17.5); Luc # (Auto) 0.12; Luc % (Auto) 1; Lymphocytes # (A) 0.9 k/uL (1.0-4.8); Lymphocytes % (A) 10 %; MCH 32.9 pg (25.0-35.0); MCHC 32.6 g/dL (31.0-37.0); MCV 100.9 fL (80.0-100.0); Macrocytosis Slight; Mean Platelet Volume 10.8; Monocytes # (A) 0.5 k/uL (0-1.0); Monocytes % (A) 6 %; Neutrophils # (A) 6.9 k/uL (1.3-7.7); Neutrophils % (A) 82 %; RDW 14.8 % (11.5-15.5); WBC 8.4 k/uL (3.8-10.6); WBC (Perox) 8.58
[2016-08-16] MEDS ORDERED: SODIUM CHLORIDE 0.9% 500 ML IV ONE (22:58)
[2016-08-16] MEDS: LATANOPROST 0.005% OPHTH DROPS 2.5 ML BTL BOTH EYES SCH (23:24)
[2016-08-17] MEDS: PROPOFOL 500 MG in EMPTY BAG 1 BAG IV PRN ×5 (00:19→22:09)
[2016-08-17 00:35] LABS: Glucose,Whole Blood 127 mg/dL (75-99)
[2016-08-17] MEDS: AMIODARONE 450 MG in DEXTROSE 5% IN WATER 250 ML IV SCH ×6 (02:47→18:33)
[2016-08-17] MEDS: IPRATROPIUM-ALBUTEROL 3 ML NEB INHALATION SCH ×6 (03:27→23:02)
[2016-08-17 03:40] LABS: Glucose,Whole Blood 112 mg/dL (75-99)
[2016-08-17 04:04] LABS: Basophils % (A) 0 %; CH 32.6; CHCM 32.9; Eosinophils # (A) 0.2 k/uL (0-0.7); Eosinophils % (A) 2 %; HCT 31.8 % (39.0-53.0); HDW 2.69; HGB 10.4 gm/dL (13.0-17.5); Luc # (Auto) 0.15; Luc % (Auto) 2; Lymphocytes # (A) 1.1 k/uL (1.0-4.8); Lymphocytes % (A) 14 %; MCH 32.8 pg (25.0-35.0); MCHC 32.9 g/dL (31.0-37.0); MCV 99.8 fL (80.0-100.0); Macrocytosis Slight; Mean Platelet Volume 10.4; Monocytes # (A) 0.4 k/uL (0-1.0); Monocytes % (A) 5 %; Neutrophils # (A) 6.4 k/uL (1.3-7.7); Neutrophils % (A) 77 %; RBC 3.19 m/uL (4.30-5.90); RDW 14.7 % (11.5-15.5); WBC 8.3 k/uL (3.8-10.6); WBC (Perox) 8.43
[2016-08-17 04:19] LABS: Calcium 7.8 mg/dL (8.4-10.2); Magnesium 2.9 mg/dL (1.6-2.3); Phosphorous 4.2 mg/dL (2.5-4.5)
[2016-08-17 06:37] LABS: Glucose,Whole Blood 112 mg/dL (75-99)
[2016-08-17 06:37] LABS: Glucose,Whole Blood 63 mg/dL (75-99)
[2016-08-17] MEDS: SODIUM CHLORIDE 0.9% 1,000 ML IV SCH ×2 (06:41→22:12)
[2016-08-17 07:05] LABS: Glucose,Whole Blood 117 mg/dL (75-99)
[2016-08-17 08:11] LABS: Glucose,Whole Blood 107 mg/dL (75-99)
--- NOTE | 2016-08-17 08:31 | XR ---
EXAMINATION TYPE: XR chest 1V portable DATE OF EXAM: 08/17/2016 6:56 AM COMPARISON: Prior chest x-ray 16 Aug 2016 HISTORY: Postop cardiac surgery TECHNIQUE: Single frontal view of the chest is obtained. FINDINGS: Patient is rotated. Endotracheal tube, NG tube, left chest tube are overlying appropriate positions. There are overlying cardiac leads, patient post median sternotomy. No sizable pneumothorax or pleural effusion. Lung volumes are low. There is some improvement in aeration and possibly evalua asa status. IMPRESSION: Improvement in volume status, aeration.
[2016-08-17 08:41] LABS: ABG Base Excess -1.9 mmol/L; ABG HCO3 22 mmol/L (21-25); ABG PCO2 34 mmHg (35-45); ABG PH 7.42 (7.35-7.45); ABG PO2 84 mmHg (83-108); ABG TCO2 23 mmol/L (19-24)
--- NOTE | 2016-08-17 08:43 | PN ---
DATE OF SERVICE: 08/16/2016 ATTENDING NOTE: Patient was seen and examined by me earlier today. I reviewed the notes of my nurse practitioner, Ms. Kapadia, and agreed with her and discussed with her. The patient remains on the ventilator. ( ) now up to 12. Drips include insulin and propofol. Chest tubes remained in place. Patient is intubated. On examination, patient was intubated. Afebrile. Blood pressure 156/58. LUNGS: Diminished breath sounds. CARDIOVASCULAR: Heart sounds muffled. ABDOMEN: Soft. INVESTIGATIONS: White count 8.4, hemoglobin 10.5. ASSESSMENT: 1. Coronary artery bypass and triple vessel coronary artery disease. 2. Diabetes mellitus, type 2. 3. Chronic deep venous thrombosis and pulmonary embolism on Coumadin. 4. Pneumonia, on antibiotic. PLAN: Continue current medications and treatment plan. Continue with antibiotics. Will follow. Will ( ) and wean.
[2016-08-17] MEDS: ATORVASTATIN 40 MG TAB PO SCH (08:49)
[2016-08-17] MEDS: CHLORHEXIDINE GLUCONATE 15 ML CUP MUCOUS MEM SCH ×2 (08:50→22:11)
[2016-08-17] MEDS: DORZOLAMIDE HCL 2% DROPS 10 ML BTL LEFT EYE SCH (08:50)
[2016-08-17] MEDS: ENOXAPARIN 80 MG/0.8 ML SYRINGE SQ SCH ×2 (08:50→22:11)
[2016-08-17] MEDS: MUPIROCIN 2% OINT 22 GM TUBE TOPICAL SCH ×2 (08:51→22:11)
[2016-08-17] MEDS: PANTOPRAZOLE 40 MG/10 ML VIAL IVP SCH (08:51)
[2016-08-17 09:25] LABS: Glucose,Whole Blood 104 mg/dL (75-99)
--- NOTE | 2016-08-17 09:49 | P.PN ---
Subjective Principal diagnosis: Multivessel coronary artery disease POD #4 coronary artery bypass grafting 2 vessels (left internal mammary artery to left anterior descending artery, saphenous vein graft to obtuse marginal artery). Endoscopic vein harvest left greater saphenous vein. Epi-aortic ultrasound. Transesophageal echocardiogram. Patient remains sedated on mechanical ventilation. Started on amiodarone drip yesterday for irregular heart rhythm. Objective - Vital Signs Vital signs: Vital Signs Temp 99.5 F 08/17/16 08:00 Pulse 69 08/17/16 08:00 Resp 87 H 08/17/16 08:00 BP 115/59 08/17/16 08:00 Pulse Ox 96 08/17/16 08:00 Intake & Output 08/16/16 08/17/16 08/17/16 18:59 06:59 18:59 Intake Total 269.851 4551.983 226.008 Output Total 1495 845 95 Balance -679.870 791.983 131.008 Weight 120.1 kg Intake: IV 51 166 56 CO/CI 30 Sodium Chloride 0.9% 1, 50 000 ml @ 50 mls/hr IV . Q20H [facility] Rx#:[id number] cefTAZidime 2 gm In 100 Sodium Chloride 0.9% 100 ml @ 100 mls/hr IVPB Q12HR [facility] Rx#:[id number] pressure bag 21 66 6 Intake, IV Titration 789.820 5747.983 170.008 Amount Amiodarone 450 mg In 263.500 104.135 Dextrose 5% in Water 250 ml @ 1 MG/MIN 34.53 mls/ hr IV .Q7H31M [facility] Rx#: [id number] Clevidipine Butyrate 25 46.233 mg In Empty Bag 1 bag @ 1 MG/HR 2 mls/hr IV .Q24H [facility] Rx#:[id number] Insulin Regular 100 unit 39.983 57.483 In Sodium Chloride 0.9% 100 ml @ Titrate IV .Q0M [facility] Rx#:[id number] Propofol 500 mg In Empty 127.914 150 15.873 Bag 1 bag @ Titrate IV . Q0M [facility] Rx#:[id number] Sodium Chloride 0.9% 1, 450 500 50 000 ml @ 50 mls/hr IV . Q20H [facility] Rx#:[id number] Sodium Chloride 0.9% 500 500 ml @ 999 mls/hr IV .Q31M [facility] Rx#:[id number] cefTAZidime 2 gm In 100 Sodium Chloride 0.9% 100 ml @ 100 mls/hr IVPB Q12HR [facility] Rx#:[id number] Output: Chest Tube Drainage 10 60 0 Chest Tube Left Lateral 10 60 0 Chest Gastric Drainage 100 Urine 1385 735 95 Stool 50 Other: Voiding Method Indwelling Catheter Indwelling Catheter # Bowel Movements 1 ABP, PAP, CO, CI - Last Documented Arterial Blood Pressure 175/54 Pulmonary Artery Pressure 41/23 Cardiac Output 7.4 Cardiac Index 3.3 - Constitutional General appearance: Present: no acute distress, obese - Respiratory Details: Lungs sounds diminished bilaterally. Respirations even, nonlabored on mechanical ventilation. Current settings FiO2 40%, tidal volume 550, respiratory rate 14, PEEP 12. Left pleural chest tube to -20 cm wall suction. Drained 50 mL serous fluid in the last 24 hours. No air leak present. - Cardiovascular Details: S1, S2 present. Regular rate and rhythm, sinus bradycardia to sinus rhythm on telemetry. Sternum stable. Pacemaker generator was attached to the patient overnight, VVI with a backup rate of 50. Currently turned off. Heart hugger in place. Teds/SCDs present. Trace bilateral lower extremity edema present. - Gastrointestinal Gastrointestinal Comment(s): Abdomen soft, nontender, slightly distended. Hypoactive bowel sounds present. OG tube present. - Genitourinary Genitourinary Comment(s): Thornton present draining clear, yellow urine. Approximately 30-100 mL/h overnight. - Integumentary Integumentary Comment(s): Anterior chest incision well approximated and covered with dry intact dressing. Left lower extremity EVH site well approximated with KARL drain in place. - Neurologic Neurologic Comment(s): Currently sedated on mechanical ventilation. Does withdraw to painful stimuli. - Allied health notes Allied health notes reviewed: nursing - Labs CBC & Chem 7: 08/17/16 03:30 08/17/16 03:30 Labs: Abnormal Lab Results - Last 24 Hours (Table) 08/16/16 08/16/16 08/16/16 Range/Units 11:03 13:08 14:45 RBC (4.30-5.90) m/uL Hgb (13.0-17.5) gm/dL Hct (39.0-53.0) % MCV (80.0-100.0) fL Plt Count (150-450) k/uL Lymphocytes # (1.0-4.8) k/uL ABG pCO2 (35-45) mmHg ABG Lactic Acid (0.5-1.6) mmol/L Chloride (98-107) mmol/L BUN (9-20) mg/dL Creatinine (0.66-1.25) mg/dL Glucose (74-99) mg/dL POC Glucose (mg/dL) 123 H 110 H 130 H (75-99) mg/dL Calcium (8.4-10.2) mg/dL Magnesium (1.6-2.3) mg/dL 08/16/16 08/16/16 08/16/16 Range/Units 15:20 16:46 18:47 RBC (4.30-5.90) m/uL Hgb (13.0-17.5) gm/dL Hct (39.0-53.0) % MCV (80.0-100.0) fL Plt Count (150-450) k/uL Lymphocytes # (1.0-4.8) k/uL ABG pCO2 (35-45) mmHg ABG Lactic Acid 3.1 H* (0.5-1.6) mmol/L Chloride (98-107) mmol/L BUN (9-20) mg/dL Creatinine (0.66-1.25) mg/dL Glucose (74-99) mg/dL POC Glucose (mg/dL) 142 H 137 H (75-99) mg/dL Calcium (8.4-10.2) mg/dL Magnesium (1.6-2.3) mg/dL 08/16/16 08/16/16 08/17/16 Range/Units 20:22 22:00 00:28 RBC 3.20 L (4.30-5.90) m/uL Hgb 10.5 L (13.0-17.5) gm/dL Hct 32.3 L (39.0-53.0) % MCV 100.9 H (80.0-100.0) fL Plt Count 64 L (150-450) k/uL Lymphocytes # 0.9 L (1.0-4.8) k/uL ABG pCO2 (35-45) mmHg ABG Lactic Acid (0.5-1.6) mmol/L Chloride (98-107) mmol/L BUN (9-20) mg/dL Creatinine (0.66-1.25) mg/dL Glucose (74-99) mg/dL POC Glucose (mg/dL) 134 H 127 H (75-99) mg/dL Calcium (8.4-10.2) mg/dL Magnesium (1.6-2.3) mg/dL 08/17/16 08/17/16 08/17/16 Range/Units 03:30 03:30 03:35 RBC 3.19 L (4.30-5.90) m/uL Hgb 10.4 L (13.0-17.5) gm/dL Hct 31.8 L (39.0-53.0) % MCV (80.0-100.0) fL Plt Count 64 L (150-450) k/uL Lymphocytes # (1.0-4.8) k/uL ABG pCO2 (35-45) mmHg ABG Lactic Acid (0.5-1.6) mmol/L Chloride 108 H (98-107) mmol/L BUN 48 H (9-20) mg/dL Creatinine 1.60 H (0.66-1.25) mg/dL Glucose 112 H (74-99) mg/dL POC Glucose (mg/dL) 112 H (75-99) mg/dL Calcium 7.8 L (8.4-10.2) mg/dL Magnesium 2.9 H (1.6-2.3) mg/dL 08/17/16 08/17/16 08/17/16 Range/Units 06:34 06:35 07:04 RBC (4.30-5.90) m/uL Hgb (13.0-17.5) gm/dL Hct (39.0-53.0) % MCV (80.0-100.0) fL Plt Count (150-450) k/uL Lymphocytes # (1.0-4.8) k/uL ABG pCO2 (35-45) mmHg ABG Lactic Acid (0.5-1.6) mmol/L Chloride (98-107) mmol/L BUN (9-20) mg/dL Creatinine (0.66-1.25) mg/dL Glucose (74-99) mg/dL POC Glucose (mg/dL) 63 L 112 H 117 H (75-99) mg/dL Calcium (8.4-10.2) mg/dL Magnesium (1.6-2.3) mg/dL 08/17/16 08/17/16 08/17/16 Range/Units 08:10 08:33 09:23 RBC (4.30-5.90) m/uL Hgb (13.0-17.5) gm/dL Hct (39.0-53.0) % MCV (80.0-100.0) fL Plt Count (150-450) k/uL Lymphocytes # (1.0-4.8) k/uL ABG pCO2 34 L (35-45) mmHg ABG Lactic Acid (0.5-1.6) mmol/L Chloride (98-107) mmol/L BUN (9-20) mg/dL Creatinine (0.66-1.25) mg/dL Glucose (74-99) mg/dL POC Glucose (mg/dL) 107 H 104 H (75-99) mg/dL Calcium (8.4-10.2) mg/dL Magnesium (1.6-2.3) mg/dL - Imaging and Cardiology Chest x-ray: image reviewed Assessment and Plan (1) Diabetes Status: Acute (2) Hyperlipidemia Status: Acute (3) History of pulmonary embolus (PE) Status: Acute (4) History of deep vein thrombosis Status: Acute (5) Thrombocytopenia Status: Acute (6) Coronary artery disease Status: Acute Plan: 1. Continue beta abran, statin, Lovenox. Aspirin, Plavix on hold secondary to thrombocytopenia. 2. DC amiodarone drip. Converted to oral amiodarone for A. fib prophylaxis. 3. Ventilator management per pulmonology. Wean O2 as tolerated. 4. Begin tube feeding today. 5. Antibiotics per pulmonary. Will follow cultures. 6. Daily labs, chest x-rays. 7. GI/DVT prophylaxis. 8. More recommendations as patient progresses. Time with Patient: Greater than 30
[2016-08-17] MEDS: AMIODARONE 200 MG TAB PO SCH ×2 (09:59→22:10)
[2016-08-17 10:38] LABS: Glucose,Whole Blood 125 mg/dL (75-99)
[2016-08-17 11:11] LABS: Glucose,Whole Blood 147 mg/dL (75-99)
[2016-08-17 11:11] LABS: Glucose,Whole Blood 147 mg/dL (75-99)
--- NOTE | 2016-08-17 11:26 | CDI ---
In responding to this query, please exercise your independent professional judgment. The [facility] Coding Staff and Clinical Documentation Specialists appreciate your assistance in clarifying documentation, maintaining compliance with coding guidelines, accurately documenting patients condition and capturing severity of illness. The fact that a question is asked does not imply that any particular answer is desired or expected. Communication forms are a method of clarifying documentation and are not made part of the Legal Health Record. Thank you in advance for your clarification. Last Revision, Apr 2016 Gwen Govea [address] [place] [address] Documentation Clarification Form Date: 08/17/2016 10:44:00 AM From: Mary Rebolledo RN, CCDS Admit Date: 08/09/2016 12:47:00 PM Patient Name: Angel Michele Visit Number: [id number] Dr. Ramin Traore/ Juliana Leal MAMMALOGIST Patients Admitting Diagnosis: CAD Post-Operative Diagnosis: CAD Procedure performed: Coronary artery bypass grafting x two vessels (left internal mammary artery to left anterior descending artery, saphenous vein graft to obtuse marginal artery). 2. Endoscopic vein harvest left greater saphenous vein. 3. Epiaortic ultrasound. 4. Transesophageal echocardiogram The patient presented with the following respiratory symptoms SOB with exertion for elective 2 vessel CABG History/Risk Factors: PE, SOB with exertion Tobacco use: former smoker Clinical Indicators: 08/16 Pulmonary: " post thoracotomy respiratory failure, expected, currently the oxygenation remains borderline . Chest x-ray findings are consistent with increased interstitial markings probably related to fluid overload. The patient has adequate cardiac index output for now. postoperative hypoxemia with difficulties and weaning due to ongoing oxygenation problem. Meanwhile the patient is producing purulent sputum and he had fever along with foul-smelling rest or secretions. Cultures were obtained and is showing gram-negative and gram -positive cocci and the patient is currently on IV Fortaz Vital signs/Pulse oximetry: Temp 97, HR 64, RR 18, B/P 13/84, spo2 95% ra 08/16 Lung/Breathing assessment: Diminished breath sounds bilaterally. 08/17 ABG/CBG: pH 7.42 pCO2 22 pHCO3 22 Lactate -1.9 Treatment: Breathing TX: Duoneb Q 2 hrs PRN Continuous Pulse ox: in ICU Vent: AC12, TV 600, FIO2 60%, PEEP 8 O2: weaned from 100% to 60% In your professional opinion, can you please clarify if these findings signify one of the following conditions? Acuity: o x Acute o Chronic o Acute on Chronic Respiratory Status: o Respiratory failure with hypercapnia o x Respiratory failure with hypoxia o Acute Respiratory Distress o Other Diagnosis, please specify o Unable to determine An expected post-procedural or post-surgical condition Integral to the procedure Inherent to the procedure An unexpected post-procedural or post-surgical condition, related to surgical care Other, please specify _likely pneumonia acquired before surgery Unable to determine Please document in your progress notes and discharge summary in order to capture severity of illness and risk of mortality. Include clinical findings that support your diagnosis. FYI: Press F11 to launch patient chart Place X here if this finding has no clinical significance, is not applicable or if you are not able to provide any additional documentation. FABIEN
--- NOTE | 2016-08-17 11:45 | ECHOF ---
Referral Reason:LV function MEASUREMENTS -------- HEIGHT: 177.8 cm WEIGHT: 119.7 kg BP: 115/59 IVSd: 1.5 cm (0.6 - 1.1) LVIDd: 4.5 cm (3.9 - 5.3) LVPWd: 1.4 cm (0.6 - 1.1) IVSs: 2.0 cm LVIDs: 3.2 cm LVPWs: 2.0 cm FINDINGS -------- Sinus rhythm. This was a technically difficult study with suboptimal views. No subcostals due to surgery. Patient is on a vent. TDS due to CABG and Bandages. Patient has chest tube and bandages in apical area. Overall left ventricular systolic function is normal with, an EF between 60 - 65 %. The right ventricle is normal in size and function. The left atrium was not well visualized. The right atrium was not well visualized. The aortic valve was not well visualized. The mitral valve was not well visualized. The tricuspid valve was not well visualized. The pulmonic valve was not well visualized. CONCLUSIONS -------- 1. Sinus rhythm. 2. The aortic valve was not well visualized. 3. The mitral valve was not well visualized. 4. The tricuspid valve was not well visualized. 5. The pulmonic valve was not well visualized. 6. This was a very technically difficult study with suboptimal views. 7. No subcostals due to surgery and bandages. 8. Patient is on a vent. 9. TDS due to CABG and Bandages. 10. Patient has chest tube and bandages in apical area. 11. Overall left ventricular systolic function is normal with, an EF between 60 - 65 %. 12. The left atrium was not well visualized. 13. The right atrium was not well visualized. PHONE SCREENER: Darwin Schaefer, [facility]
--- NOTE | 2016-08-17 11:50 | CDI ---
In responding to this query, please exercise your independent professional judgment. The [facility] Coding Staff and Clinical Documentation Specialists appreciate your assistance in clarifying documentation, maintaining compliance with coding guidelines, accurately documenting patients condition and capturing severity of illness. The fact that a question is asked does not imply that any particular answer is desired or expected. Communication forms are a method of clarifying documentation and are not made part of the Legal Health Record. Thank you in advance for your clarification. Last Revision, January 2015 Gwen Govea [address] [place] [address] Documentation Clarification Form Clinical Validation Review Date: 08/17/2016 11:28:00 AM From: Mary Rebolledo RN, CCDS Admit Date: 08/09/2016 12:47:00 PM Patient Name: Angel Michele Visit Number: [id number] Dr. Ramin Traore/Juliana Albright CNP Pneumonia was documented in your notes on: 08/16/16 History/Risk Factors: SOB with Exertion Clinical Indicators: 08/16 Pulmonary Progress Note: On 08/16/2016, patient remains intubated, his gases are very marginal, remains on FiO2 of 70%, PEEP is now up to 12, chest x- ray shows what looks like a right lower lobe pneumonia and consolidation in the medial aspect of the right lower lobe. Patient is on broad-spectrum antibiotics coverage." 08/16 Attending Progress Note: "Patient has likely developed pneumonia, per Pulmonology note. Therefore patient remains intubated and antibiotic coverage has been provided. Cultures have been sent. WBC: 8.4/8.3 Left shift: .9/1.1 08/16 CXR:"1. CARDIOMEGALY. 2. WORSENING BIBASILAR AIRSPACE DISEASE. 3. I SUSPECT SMALL EFFUSIONS. 08/16 Lung/Breathing assessment: "LUNGS: Diminished breath sounds bilaterally." Treatment: Antibiotics: Ceftazidime 2gm IVPB Q 12 hrs O2: FIO2 @ 60% Breathing TX: Duoneb Q4hrs and Q 2 hrs PRN SOB In order to capture the severity of condition, please clarify if the condition signifies and you are treating for: Post-operative Pneumonia (Please Identify Organism if known) Was this an expected or unexpected complication? Aspiration Pneumonia, identify if: Due to solids or liquids Bacterial Pneumonia, specify causal organism (if known) Gram Negative Pneumonia Due to Strep Due to Staph Due to E. coli Other bacteria (specify) Viral Pneumonia, specify casual organism (if known) Ventilator Associated Pneumonia Unable to determine Link any associated conditions to the pneumonia: Influenza with secondary gram negative pneumonia Sepsis due to pneumonia Acute respiratory failure due to pneumonia Other, please specify Please document in your progress notes and discharge summary in order to capture severity of illness and risk of mortality. Include clinical findings that support your diagnosis. FYI: Press F11 to launch patient chart. Place X here if this finding has no clinical significance, is not applicable or if you are not able to provide any additional documentation. FABIEN
[2016-08-17] MEDS: METOPROLOL TARTRATE 25 MG TAB PO SCH ×2 (12:22→22:48)
[2016-08-17 13:07] LABS: Glucose,Whole Blood 146 mg/dL (75-99)
--- NOTE | 2016-08-17 15:27 | PN ---
DATE OF SERVICE: 08/16/2016 Patient is still intubated. His heart rate in the 70s to 80s. His blood pressure is 111/55 mmHg. His labs are reviewed. His white count is elevated at 11.9, hemoglobin was 10.9. Electrolytes show BUN of 41, creatinine of 1.4. Magnesium is 2.5. IMPRESSION: 1. Coronary artery disease, status post coronary artery bypass grafting. 2. Being treated for pneumonitis. Patient is still intubated on account of inability to wean. PLAN: Continue cardiac medications. He went into atrial fibrillation. He is on IV amiodarone at this time. We will switch to p.o. amiodarone tomorrow. Continue other cardiac medications including statins, aspirin and beta blockers.
--- NOTE | 2016-08-17 15:29 | PN ---
DATE OF SERVICE: 08/17/2016 Mr. Michele still is intubated. His heart rates are now in the 50s. He is atrially paced. IV amiodarone is being discontinued, oral amiodarone is being started. He remains on IV antibiotics. Breath sounds are reduced bilaterally. Heart sounds are distant. Abdomen is soft. IMPRESSION: Coronary artery disease, status post coronary artery bypass grafting, postoperative pneumonitis and inability to wean in acute respiratory failure. PLAN: Continue cardiac medications. He received 2 doses of beta blockers ( ) for now and all of the cardiac medications will continue.
--- NOTE | 2016-08-17 15:54 | P.PN ---
Subjective Principal diagnosis: Status post CABG postoperative day # 4. 80-year-old male patient, complaining of exertional dyspnea over the past several months. The patient denied having any chest pain. 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 The patient was found to have occluded right coronary artery with collaterals filling from the left. The patient was found to have critical disease involving the left main coronary artery and critical disease involving diffuse marginal branch of circumflex and proximal LAD. Based on this, coronary artery bypass surgery was recommended. The patient was seen by cardiothoracic surgery and the tentative plan to undergo surgery on this patient is on Tuesday. The preoperative echocardiogram showed a preserved LV function with an ejection fraction of 50-55%. No evidence of any pulmonary hypertension. No evidence of any valvular abnormalities. There is evidence of hypertensive heart disease with concentric left ventricular hypertrophy. Chest x-ray shows no acute cardio pulmonary process. He has history of pulmonary embolism and DVT and the patient has been maintained on anticoagulation on outpatient basis with warfarin. On today's evaluation of 08/11/2016 the patient is stable. The patient has no specific complaints. The patient is using his incentive spirometer. The patient was found to have chronic thrombocytopenia and for that reason a hematology consultation was obtained. History of any chest pain. He remains on IV heparin. Awaiting surgery on Tuesday. A bedside spirometry is still to be done. On 08/13/2016 I'm seeing this patient following his coronary bypass surgery. The patient underwent the surgery without any major complication. I discussed the case with the thoracic surgeon and the intraoperative course was essentially uncomplicated. The patient currently is intubated on mechanical ventilator. He is still sedated. He is hemodynamically stable. He is on a nitroglycerin and Cleviprex Drip for tight blood pressure control. The patient' s cardiac output is at 6.3 with an index of 2.8. PA pressures 29/17. The patient is also has his chest tubes in place with total amount of output being low at this point despite his underlying thrombocytopenia. He is also on an insulin drip at 40 units an hour for blood sugar control. Chest x-ray shows adequate expansion of both lungs and the chest tubes, ET tube and the [place]aya catheter in place. The blood gases showed a pH of 7.31 with a pCO2 of 48 and pO2 of 115 and it was not an FiO2 of 100% and I wean down the FiO2 down to 70% and the saturation is currently above 95%. The patient is also on assist control mode of ventilation with a PEEP of 5 and FiO2 of 70% with a tidal volume of 550. His rate is at 12. Postoperative platelet counts is at 42,000. Hemoglobin is at 10.9. The patient has not required any platelet transfusions. On 08/14/2016 the patient remains intubated on a mechanical ventilator. We failed to wean and extubate this patient yesterday because of oxygenation problems. This morning, the patient remained on assist control mode at the rate of 12, tidal volume 500, FiO2 of 60% and a PEEP of 5. The most recent blood gases showed a pH of 7.44 with a pCO2 of 24 and pO2 of 67. Chest x-ray is showing regular postsurgical changes with a mediastinal and the pleural chest tubes in place, ET tube is in a good location. The patient hemodynamically stable. He remains on a combination of nitroglycerin and Cleviprex drip for blood pressure control. His cardiac output as above 7 and the index is at 3.5. Is producing adequate amount of urine output. He remains sedated with Diprivan which is running at 30 mics. Nitroglycerin drip is running at 5 mics per minute and the Cleviprex is at 60 mg an hour. The patient is also on insulin drip at 10 units an hour. Output from the chest tubes have been 20 mL an hour. Meanwhile the patient had developed an acute kidney injury with a creatinine being up to 1.3. The bicarb level is down to 16 and the patient has a informed of non-anion gap metabolic acidosis. On 08/15/2016, the patient remains intubated. I was unable to wean this patient off the mechanical ventilator for several reasons. First and foremost, the patient was having borderline oxygenation. At the later stage, the patient started acting septic where he started having chills and fever and purulent foul -smelling respiratory secretions were also suctioned from his orotracheal tube. Based on all this, cultures and pain and the patient was started on IV Fortaz. Meanwhile, the patient was given IV fluids, overnight he received a bolus of normal saline 1 L and 2 boluses of albumin 12.5 g which improved his urine output. At this point in time, the patient is postop day #2. He is resting comfortably in bed. He is sedated with Diprivan and is calm and comfortable. He is an assist-control mode of ventilation and the most recent vent settings include an assist-control of 12, tidal volume of 600, FiO2 of 70% and a PEEP of 8. The most recent blood gases showed a pH of 7.47 with a pCO2 of 30 and pO2 of 78. Nevertheless, his pulse ox currently on the monitor is at 99% and FiO2 has been drop down to 60% and we will gradually weaning it down to maintain a saturation above 95%. He is afebrile for now. He still has a right IJ [place] catheter and hemodynamic parameters show a cardiac output of 6 with an index of 2.7. The patient's white cell count is not elevated at 5.7. He will was stable at 10.6. Renal function is impaired with a creatinine of 1.4. He is off the Catapres drip. He is off the nitroglycerin drip. He is producing around 20-30 mL of urine output on an hourly basis and he has gained significant amount of weight and there is third spacing. Chest x-ray shows increased tone vessel markings. ET tube and NG tube are all in good location. The KARL drain in the left lower extremity is in place and the total amount of output is 10 mL. The 2 mediastinal chest tubes in the left pleural chest tubes are also in place with minimal amount of output. Platelet count is stable at 40 ,000. He insulin drip is on hold for now. On 08/16/2016, patient remains intubated, his gases are very marginal, remains on FiO2 of 70%, PEEP is now up to 12, chest x-ray shows what looks like a right lower lobe pneumonia and consolidation in the medial aspect of the right lower lobe. Patient is on broad-spectrum antibiotics coverage. Ventilator settings were reviewed, she is presently on FiO2 of 70%, PEEP of 12, tidal volume of 550 assist control rate of 14. Labs were reviewed, WBC count is 11.9 hemoglobin is 10.9. ABG showed a pO2 of 61 pCO2 of 36 pH of 7.42. Basic metabolic profile is normal however his BUN is 41 and creatinine is 1.40 baseline creatinine was 1.0 on 08/13. Chest x-ray showed cardiomegaly, worsening by basilar airspace disease especially at the right base and small pleural effusions noted. Patient is receiving Lasix daily. Remains on propofol drip. And fully sedated. On 08/17/2016, patient seems to have made a significant improvement from the pulmonary perspective. I was able to cut down his FiO2 to 45%, PEEP is down to 5, tidal volume is 550, and assist control rate is 14. ABG this morning showed a pO2 of 84 pCO2 of 34 pH of 7.42. However when attempted to wean the patient, he went into atrial fibrillation with RVR, hence I decided to hold back on weaning and placed back on assist control mode of mechanical ventilation. CBC showed a hemoglobin of 10.4 WBC count is 8.3. Basic metabolic profile is normal BUN is 58 creatinine is 1.60. Yesterday, patient was placed on Lovenox at 80 mg subcu every 12 hours, and this is mostly to replace his Coumadin since the patient had previous history of hypercoagulable state and pulmonary embolism , and I felt it would be worthwhile placing him on Lovenox instead of Coumadin for the time being. This was also discussed with the surgeon on the case. Platelets remain about the same today compared to yesterday. Not much of a change but they have always been low. Objective - Vital Signs Vital signs: Vital Signs Temp 99.1 F 08/17/16 12:00 Pulse 50 L 08/17/16 15:41 Resp 25 H 08/17/16 12:00 BP 146/69 08/17/16 12:00 Pulse Ox 97 08/17/16 12:00 Intake & Output 08/16/16 08/17/16 08/17/16 18:59 06:59 18:59 Intake Total 022.613 3481.983 450.599 Output Total 1495 845 245 Balance -679.870 791.983 205.599 Weight 120.1 kg Intake: IV 51 166 216 CO/CI 30 Sodium Chloride 0.9% 1, 110 000 ml @ 50 mls/hr IV . Q20H [facility] Rx#:[id number] cefTAZidime 2 gm In 100 100 Sodium Chloride 0.9% 100 ml @ 100 mls/hr IVPB Q12HR [facility] Rx#:[id number] pressure bag 21 66 6 Intake, IV Titration 840.013 4726.983 204.599 Amount Amiodarone 450 mg In 263.500 104.135 Dextrose 5% in Water 250 ml @ 1 MG/MIN 34.53 mls/ hr IV .Q7H31M [facility] Rx#: [id number] Clevidipine Butyrate 25 46.233 mg In Empty Bag 1 bag @ 1 MG/HR 2 mls/hr IV .Q24H [facility] Rx#:[id number] Insulin Regular 100 unit 39.983 57.483 0 In Sodium Chloride 0.9% 100 ml @ Titrate IV .Q0M [facility]N Rx#:[id number] Propofol 500 mg In Empty 127.914 150 50.464 Bag 1 bag @ Titrate IV . Q0M [facility] Rx#:[id number] Sodium Chloride 0.9% 1, 450 500 50 000 ml @ 50 mls/hr IV . Q20H [facility] Rx#:[id number] Sodium Chloride 0.9% 500 500 ml @ 999 mls/hr IV .Q31M [facility] Rx#:[id number] cefTAZidime 2 gm In 100 Sodium Chloride 0.9% 100 ml @ 100 mls/hr IVPB Q12HR [facility] Rx#:[id number] Tube Feeding 30 Output: Chest Tube Drainage 10 60 20 Chest Tube Left Lateral 10 60 20 Chest Gastric Drainage 100 Urine 1385 735 225 Stool 50 Other: Voiding Method Indwelling Catheter Indwelling Catheter # Bowel Movements 1 ABP, PAP, CO, CI - Last Documented Arterial Blood Pressure 175/54 Pulmonary Artery Pressure 41/23 Cardiac Output 7.4 Cardiac Index 3.3 - Exam The patient is intubated on a mechanical ventilator. He is sedated with Diprivan and calm and comfortable. Orogastric and orotracheal tube in place. The patient has a right IJ [place] catheter Cordis in place.Head exam was generally normal. There was no scleral icterus or corneal arcus. Mucous membranes were moist.Neck was supple and without jugular venous distension, thyromegaly, or carotid bruits. Carotids were easily palpable bilaterally. There was no adenopathy. Lung sounds are equal and symmetrical breath sounds without any rhonchi or wheezes or any crackles. All of the chest tubes are all in place. Heart sounds are regular, positive S1-S2. No cervical murmurs appreciated. Sternum stable clean and intact.Abdominal exam slightly distended and diminished bowel sounds.. The abdomen was soft, non-tender, and without masses, organomegaly, or appreciable enlargement of the abdominal aorta. Extremities show diminished pulses. There is no cyanosis or clubbing. All of the surgical wound sites are dry clean and intact at this point. Neurologically the patient remains sedated. - Labs CBC & Chem 7: 08/17/16 03:30 08/17/16 03:30 Labs: Abnormal Lab Results - Last 24 Hours (Table) 08/16/16 08/16/16 08/16/16 Range/Units 15:20 16:46 18:47 RBC (4.30-5.90) m/uL Hgb (13.0-17.5) gm/dL Hct (39.0-53.0) % MCV (80.0-100.0) fL Plt Count (150-450) k/uL Lymphocytes # (1.0-4.8) k/uL ABG pCO2 (35-45) mmHg ABG Lactic Acid 3.1 H* (0.5-1.6) mmol/L Chloride (98-107) mmol/L BUN (9-20) mg/dL Creatinine (0.66-1.25) mg/dL Glucose (74-99) mg/dL POC Glucose (mg/dL) 142 H 137 H (75-99) mg/dL Calcium (8.4-10.2) mg/dL Magnesium (1.6-2.3) mg/dL 08/16/16 08/16/16 08/17/16 Range/Units 20:22 22:00 00:28 RBC 3.20 L (4.30-5.90) m/uL Hgb 10.5 L (13.0-17.5) gm/dL Hct 32.3 L (39.0-53.0) % MCV 100.9 H (80.0-100.0) fL Plt Count 64 L (150-450) k/uL Lymphocytes # 0.9 L (1.0-4.8) k/uL ABG pCO2 (35-45) mmHg ABG Lactic Acid (0.5-1.6) mmol/L Chloride (98-107) mmol/L BUN (9-20) mg/dL Creatinine (0.66-1.25) mg/dL Glucose (74-99) mg/dL POC Glucose (mg/dL) 134 H 127 H (75-99) mg/dL Calcium (8.4-10.2) mg/dL Magnesium (1.6-2.3) mg/dL 08/17/16 08/17/16 08/17/16 Range/Units 03:30 03:30 03:35 RBC 3.19 L (4.30-5.90) m/uL Hgb 10.4 L (13.0-17.5) gm/dL Hct 31.8 L (39.0-53.0) % MCV (80.0-100.0) fL Plt Count 64 L (150-450) k/uL Lymphocytes # (1.0-4.8) k/uL ABG pCO2 (35-45) mmHg ABG Lactic Acid (0.5-1.6) mmol/L Chloride 108 H (98-107) mmol/L BUN 48 H (9-20) mg/dL Creatinine 1.60 H (0.66-1.25) mg/dL Glucose 112 H (74-99) mg/dL POC Glucose (mg/dL) 112 H (75-99) mg/dL Calcium 7.8 L (8.4-10.2) mg/dL Magnesium 2.9 H (1.6-2.3) mg/dL 08/17/16 08/17/16 08/17/16 Range/Units 06:34 06:35 07:04 RBC (4.30-5.90) m/uL Hgb (13.0-17.5) gm/dL Hct (39.0-53.0) % MCV (80.0-100.0) fL Plt Count (150-450) k/uL Lymphocytes # (1.0-4.8) k/uL ABG pCO2 (35-45) mmHg ABG Lactic Acid (0.5-1.6) mmol/L Chloride (98-107) mmol/L BUN (9-20) mg/dL Creatinine (0.66-1.25) mg/dL Glucose (74-99) mg/dL POC Glucose (mg/dL) 63 L 112 H 117 H (75-99) mg/dL Calcium (8.4-10.2) mg/dL Magnesium (1.6-2.3) mg/dL 08/17/16 08/17/16 08/17/16 Range/Units 08:10 08:33 09:23 RBC (4.30-5.90) m/uL Hgb (13.0-17.5) gm/dL Hct (39.0-53.0) % MCV (80.0-100.0) fL Plt Count (150-450) k/uL Lymphocytes # (1.0-4.8) k/uL ABG pCO2 34 L (35-45) mmHg ABG Lactic Acid (0.5-1.6) mmol/L Chloride (98-107) mmol/L BUN (9-20) mg/dL Creatinine (0.66-1.25) mg/dL Glucose (74-99) mg/dL POC Glucose (mg/dL) 107 H 104 H (75-99) mg/dL Calcium (8.4-10.2) mg/dL Magnesium (1.6-2.3) mg/dL 08/17/16 08/17/16 08/17/16 Range/Units 10:36 11:08 11:10 RBC (4.30-5.90) m/uL Hgb (13.0-17.5) gm/dL Hct (39.0-53.0) % MCV (80.0-100.0) fL Plt Count (150-450) k/uL Lymphocytes # (1.0-4.8) k/uL ABG pCO2 (35-45) mmHg ABG Lactic Acid (0.5-1.6) mmol/L Chloride (98-107) mmol/L BUN (9-20) mg/dL Creatinine (0.66-1.25) mg/dL Glucose (74-99) mg/dL POC Glucose (mg/dL) 125 H 147 H 147 H (75-99) mg/dL Calcium (8.4-10.2) mg/dL Magnesium (1.6-2.3) mg/dL 08/17/16 Range/Units 13:06 RBC (4.30-5.90) m/uL Hgb (13.0-17.5) gm/dL Hct (39.0-53.0) % MCV (80.0-100.0) fL Plt Count (150-450) k/uL Lymphocytes # (1.0-4.8) k/uL ABG pCO2 (35-45) mmHg ABG Lactic Acid (0.5-1.6) mmol/L Chloride (98-107) mmol/L BUN (9-20) mg/dL Creatinine (0.66-1.25) mg/dL Glucose (74-99) mg/dL POC Glucose (mg/dL) 146 H (75-99) mg/dL Calcium (8.4-10.2) mg/dL Magnesium (1.6-2.3) mg/dL Assessment and Plan Plan: 1 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 The patient underwent coronary bypass surgery and currently is postop day #3 2 postoperative hypoxemia with difficulties and weaning due to ongoing oxygenation problem. Meanwhile the patient is producing purulent sputum and he had fever along with foul-smelling rest or secretions. Cultures were obtained and is showing gram-negative and gram-positive cocci and the patient is currently on IV Fortaz. White cell count is not elevated. No hypotension. Mild lactic acidosis is present. 2 diabetes mellitus on insulin drip for blood sugar control 3 postoperative hypertension currently off nitroglycerin drip and Cleviprex 4 post thoracotomy respiratory failure, expected, currently the oxygenation remains borderline . Chest x-ray findings are consistent with increased interstitial markings probably related to fluid overload. The patient has adequate cardiac index output for now. Hemodynamically stable. Possibility of acute lung injury is not entirely ruled out. But based on the gases today, there seems to be a significant improvement this was also noted on the chest x- ray today. 5 previous history of DVT and pulmonary embolism , maintained on warfarin outpatient basis, patient will be restarted on Lovenox 80 mg subcu every 12 hours beginning today. In the meantime we'll continue to monitor his low platelets. Patient has chronic thrombocytopenia to begin with. 6 thrombocytopenia him a stable with a platelet count, without evidence of any acute bleeding 7 acute kidney injury, creatinine is up to 1.6 8 postoperative respiratory failure, failure to wean which was not expected, mostly secondary to hypoxic respiratory failure secondary to pneumonia, hospital -acquired, sputum is positive for gram-negative bacilli, final report is pending. suspect some component of congestive heart failure, and possible acute lung injury. Possibility of pulmonary embolism is not entirely ruled out , but felt to be less likely. However will empirically continue antibiotics, bronchodilators, and Lovenox subcu. Recommendation: Continue ventilatory support, weaning attempt was made today, however his heart rate was a bit of a concern since it went as high as 160 and I had to go back on assist control mode of mechanical ventilation. We'll hold on further weaning at this point. continue antibiotics in the form IV Fortaz, continue diuretics intermittently, continue propofol drip, I held his feeding earlier today only because of abdominal distention, that would likely be started today Prognosis remains guarded, we'll continue to follow. Heparin in the form of Lovenox was restarted at 80 mg subcu every 12 hours knowing that the patient had previous history of DVT and pulmonary embolism. Presently I cannot send the patient down for a CT angiogram of the chest knowing that his creatinine is 1.6. This constellation of anticoagulation with thoracic surgery on the case. We will hold on diuretics for now. We'll continue to follow. Critical care time is 35 minutes.
[2016-08-17 15:59] LABS: Glucose,Whole Blood 129 mg/dL (75-99)
--- NOTE | 2016-08-17 18:03 | PN ---
DATE OF SERVICE: 08/17/2016 PRESENTING COMPLAINT: Status post CABG. INTERVAL HISTORY: This is a patient who is status post CABG x2 and is currently on the ventilator with an FiO2 of 40%, PEEP of 12. Telemetry shows atrial fibrillation. Patient's drips include lactated Ringer's IV, propofol, insulin, which is on hold, and an amiodarone bolus. Patient has one left pleural chest tube in place. Patient is comfortable on the ventilator. Review of systems cannot be done. Patient is intubated. Current medications reviewed above. PHYSICAL EXAMINATION: VITAL SIGNS: Temperature 99.1, pulse 60, respirations 25, blood pressure 146/69, oxygen saturation 97% on the ventilator. GENERAL APPEARANCE: Patient is lying comfortably in bed on the ventilator, breathing comfortably. Appears restful. EYES: Pupils equal. Conjunctivae normal. NECK: JVD unable to assess. Mass not palpable. RESPIRATORY: Effort normal on the ventilator. LUNGS: Diminished breath sounds bilaterally. CARDIOVASCULAR: First and second sounds noted. Heart rhythm irregular. Generalized edema. CHEST WALL: Patient has one chest tube. Midline incision covered with a surgical dressing. ABDOMEN: Soft, nontender. Liver and spleen not palpable. NEUROLOGIC: Pupils equal. Plantars equivocal. INVESTIGATIONS: White blood cell count 8.3, hemoglobin 10.4, platelet count 64. Blood gas shows pH 7.42, pCO2 34, pO2 84, HCO3 22, base excess -1.9. Sodium 140, potassium 4.0. BUN 48, creatinine 1.60. Chest x-ray shows improvement in volume status and aeration. ASSESSMENT: 1. Status post coronary artery bypass graft for triple-vessel coronary artery disease, slow to respond. 2. Coronary artery disease. 3. Diabetes mellitus, type 2, on oral hypoglycemics. 4. 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 5. Hyperlipidemia, controlled. 6. Primary osteoarthritis of multiple joints bilaterally. 7. Benign prosthetic hypertrophy, stable. 8. 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 9. Postoperative ventilator support, slow to wean. PLAN: Continue current medication and treatment plan. Pulmonary and Cardiovascular Surgery are following the patient. Pulmonology continues with ventilator management and support. Will continue to follow Pulmonology's recommendations for extubation of this patient. Patient has likely developed a pneumonia and consequently is currently on antibiotics. Tube feedings will be initiated today. Will continue to follow. Patient was seen and examined by nurse practitioner, Fiorella Kapadia, and all elements of the case were discussed with attending, Dr. Long.
[2016-08-17 18:04] LABS: Glucose,Whole Blood 110 mg/dL (75-99)
[2016-08-17 18:31] LABS: Glucose,Whole Blood 145 mg/dL (75-99)
[2016-08-17] MEDS: INSULIN REGULAR 100 UNIT in SODIUM CHLORIDE 0.9% 100 ML IV PRN (18:57)
[2016-08-17 20:25] LABS: Glucose,Whole Blood 110 mg/dL (75-99)
--- NOTE | 2016-08-17 21:59 | PN ---
DATE OF SERVICE: 08/17/2016 ATTENDING NOTE: This patient was seen and examined by me earlier today. I reviewed the note of my nurse practitioner, Ms. Kapadia, agreed with it and discussed the same with her. Patient remains on the ventilator, although the PEEP has come to 5. FiO2 is 40%. Tube feeding has been started at 15 mL/hour. Patient remains on IV insulin and IV propofol. Secretions are a little bit decreased. On examination, decreased breath sounds. Heart sounds irregular. INVESTIGATIONS: Blood work noted. ASSESSMENT: 1. Status post coronary artery bypass. 2. Postoperative ventilator support remains. 3. Pneumonia; consider Gram-negative organism. Antibiotics are in place. Slow to wean.
[2016-08-17] MEDS: LATANOPROST 0.005% OPHTH DROPS 2.5 ML BTL BOTH EYES SCH (22:11)
[2016-08-17 22:49] LABS: Glucose,Whole Blood 113 mg/dL (75-99)
[2016-08-18 00:23] LABS: Glucose,Whole Blood 117 mg/dL (75-99)
[2016-08-18] MEDS: PROPOFOL 500 MG in EMPTY BAG 1 BAG IV PRN ×4 (01:20→08:55)
[2016-08-18 01:21] LABS: Glucose,Whole Blood 155 mg/dL (75-99)
[2016-08-18 02:43] LABS: Glucose,Whole Blood 153 mg/dL (75-99)
[2016-08-18] MEDS: IPRATROPIUM-ALBUTEROL 3 ML NEB INHALATION SCH ×6 (03:06→23:53)
[2016-08-18 04:37] LABS: Glucose,Whole Blood 134 mg/dL (75-99)
[2016-08-18 04:46] LABS: Basophils % (A) 0 %; CH 32.4; CHCM 32.6; Eosinophils # (A) 0.1 k/uL (0-0.7); Eosinophils % (A) 2 %; HCT 29.7 % (39.0-53.0); HDW 2.81; HGB 9.5 gm/dL (13.0-17.5); Luc # (Auto) 0.09; Luc % (Auto) 1; Lymphocytes # (A) 0.6 k/uL (1.0-4.8); Lymphocytes % (A) 10 %; MCV 100.1 fL (80.0-100.0); Macrocytosis Slight; Mean Platelet Volume 10.3; Monocytes # (A) 0.3 k/uL (0-1.0); Monocytes % (A) 6 %; Neutrophils % (A) 81 %; RBC 2.97 m/uL (4.30-5.90); RDW 14.6 % (11.5-15.5); WBC 6.2 k/uL (3.8-10.6); WBC (Perox) 6.11
[2016-08-18 05:09] LABS: Calcium 7.7 mg/dL (8.4-10.2); Phosphorous 3.2 mg/dL (2.5-4.5); Potassium 3.7 mmol/L (3.5-5.1)
[2016-08-18] MEDS ORDERED: POTASSIUM CHLORIDE ORAL LIQUID 40 MEQ/30 ML CUP NG-TUBE ONE (06:45)
[2016-08-18 07:02] LABS: Glucose,Whole Blood 129 mg/dL (75-99)
--- NOTE | 2016-08-18 07:13 | XR ---
EXAMINATION TYPE: XR chest 1V portable DATE OF EXAM: 08/18/2016 7:05 AM COMPARISON: 08/17/2016 HISTORY: Post cardiac surgery TECHNIQUE: Single frontal view of the chest is obtained. FINDINGS: Instrument station is stable. No sizable pneumothorax. Persistent airspace disease and ple ural effusion noted. Heart size enlarged but stable. Arthropathy of the shoulders. IMPRESSION: 1. Bilateral airspace disease and pleural effusion mild underlying venous congestion not excluded. Fi ndings stable
[2016-08-18 08:45] LABS: Glucose,Whole Blood 133 mg/dL (75-99)
[2016-08-18 08:53] LABS: ABG Base Excess 0.6 mmol/L; ABG HCO3 24 mmol/L (21-25); ABG PCO2 35 mmHg (35-45); ABG PH 7.46 (7.35-7.45); ABG PO2 97 mmHg (83-108); ABG TCO2 25 mmol/L (19-24)
[2016-08-18] MEDS: CHLORHEXIDINE GLUCONATE 15 ML CUP MUCOUS MEM SCH ×2 (08:56→21:57)
[2016-08-18] MEDS: DORZOLAMIDE HCL 2% DROPS 10 ML BTL LEFT EYE SCH (08:56)
[2016-08-18] MEDS: ENOXAPARIN 80 MG/0.8 ML SYRINGE SQ SCH (08:56)
[2016-08-18] MEDS: MUPIROCIN 2% OINT 22 GM TUBE TOPICAL SCH ×2 (08:57→21:59)
[2016-08-18] MEDS: AMIODARONE 200 MG TAB PO SCH (08:57)
[2016-08-18] MEDS: ATORVASTATIN 40 MG TAB PO SCH (08:57)
[2016-08-18] MEDS: PANTOPRAZOLE 40 MG/10 ML VIAL IVP SCH (08:57)
[2016-08-18 10:20] LABS: Glucose,Whole Blood 136 mg/dL (75-99)
--- NOTE | 2016-08-18 11:43 | P.PN ---
<Juliana Albright - Last Filed: 08/18/16 11:34> Subjective Principal diagnosis: Multivessel coronary artery disease POD #5 coronary artery bypass grafting 2 vessels (left internal mammary artery to left anterior descending artery, saphenous vein graft to obtuse marginal artery). Endoscopic vein harvest left greater saphenous vein. Epi-aortic ultrasound. Transesophageal echocardiogram. Postoperative acute hypoxic respiratory failure requiring mechanical ventilation , failure to wean secondary to Serratia marcescens pneumonia, an unexpected postoperative complication. Patient remains sedated on mechanical ventilation. Attempted to wean yesterday with patient demonstrating fast irregular heart rhythm, most likely paroxysmal atrial fibrillation and patient was started on amiodarone. This morning patient exhibits sinus rhythm to sinus bradycardia with PACs, occasional junctional escape beats. Objective - Vital Signs Vital signs: Vital Signs Temp 99.0 F 08/18/16 08:00 Pulse 62 08/18/16 11:12 Resp 18 08/18/16 10:00 BP 130/54 08/18/16 10:00 Pulse Ox 100 08/18/16 10:00 Intake & Output 08/17/16 08/18/16 08/18/16 18:59 06:59 18:59 Intake Total 1549.533 1137.198 438.301 Output Total 745 930 230 Balance 346.701 293.198 208.301 Weight 120.6 kg Intake: IV 422 402 198 Sodium Chloride 0.9% 1, 250 230 80 000 ml @ 50 mls/hr IV . Q20H [facility] Rx#:[id number] cefTAZidime 2 gm In 100 100 100 Sodium Chloride 0.9% 100 ml @ 100 mls/hr IVPB Q12HR [facility] Rx#:[id number] pressure bag 72 72 18 Intake, IV Titration 414.701 281.198 56.301 Amount Amiodarone 450 mg In 272.132 Dextrose 5% in Water 250 ml @ 1 MG/MIN 34.53 mls/ hr IV .Q7H31M [facility] Rx#: [id number] Insulin Regular 100 unit 8.634 43.408 18.15 In Sodium Chloride 0.9% 100 ml @ Titrate IV .Q0M PRN Rx#:[id number] Propofol 500 mg In Empty 83.935 117.790 38.151 Bag 1 bag @ Titrate IV . Q0M PRN Rx#:[id number] Sodium Chloride 0.9% 1, 50 120 000 ml @ 50 mls/hr IV . Q20H [facility] Rx#:[id number] Oral 40 Tube Feeding 225 480 144 Other 30 60 Output: Chest Tube Drainage 70 80 Chest Tube Left Lateral 70 80 Chest Drainage 90 100 Left Calf 90 100 Urine 585 750 230 Other: Voiding Method Indwelling Catheter Indwelling Catheter Indwelling Catheter # Bowel Movements 0 ABP, PAP, CO, CI - Last Documented Arterial Blood Pressure 175/54 Pulmonary Artery Pressure 41/23 Cardiac Output 7.4 Cardiac Index 3.3 - Constitutional General appearance: Present: no acute distress, obese - Respiratory Details: Lungs sounds coarse bilaterally. Respirations even, nonlabored on mechanical ventilation. Current ventilator settings FiO2 45%, tidal 550, respiratory rate 14, PEEP 5. Left pleural chest tube remains to -20 cm wall suction, 50 mL serous output overnight, 130 mL last 24 hours. No air leak present. - Cardiovascular Details: S1, S2 present. Regular to irregular rate and rhythm, sinus rhythm to sinus bradycardia with PACs, occasional junctional escape beats. A/V epicardial pacemaker wires present. Heart hugger/teds/SCDs present. Trace bilateral lower extremity edema present. - Gastrointestinal Gastrointestinal Comment(s): Abdomen soft, nontender, nondistended. Hypoactive bowel sounds 4 quadrants. Currently tube fed at a rate of 36 mL/h which is goal. - Genitourinary Genitourinary Comment(s): Thornton present draining clear, yellow urine. Output 50-75 mL/h - Integumentary Integumentary Comment(s): Anterior chest incision well approximated and covered with dry intact dressing. Left lower extremity EVH site well approximated with KARL present. - Psychiatric Psychiatric Comment(s): Currently sedated on mechanical ventilation. - Allied health notes Allied health notes reviewed: nursing - Labs CBC & Chem 7: 08/18/16 04:30 08/18/16 10:19 Labs: Abnormal Lab Results - Last 24 Hours (Table) 08/17/16 08/17/16 08/17/16 Range/Units 13:06 15:58 18:03 RBC (4.30-5.90) m/uL Hgb (13.0-17.5) gm/dL Hct (39.0-53.0) % MCV (80.0-100.0) fL Plt Count (150-450) k/uL Lymphocytes # (1.0-4.8) k/uL ABG pH (7.35-7.45) ABG Total CO2 (19-24) mmol/L ABG O2 Saturation (94-97) % Chloride (98-107) mmol/L BUN (9-20) mg/dL Creatinine (0.66-1.25) mg/dL Glucose (74-99) mg/dL POC Glucose (mg/dL) 146 H 129 H 110 H (75-99) mg/dL Calcium (8.4-10.2) mg/dL Magnesium (1.6-2.3) mg/dL 08/17/16 08/17/16 08/17/16 Range/Units 18:29 20:22 22:47 RBC (4.30-5.90) m/uL Hgb (13.0-17.5) gm/dL Hct (39.0-53.0) % MCV (80.0-100.0) fL Plt Count (150-450) k/uL Lymphocytes # (1.0-4.8) k/uL ABG pH (7.35-7.45) ABG Total CO2 (19-24) mmol/L ABG O2 Saturation (94-97) % Chloride (98-107) mmol/L BUN (9-20) mg/dL Creatinine (0.66-1.25) mg/dL Glucose (74-99) mg/dL POC Glucose (mg/dL) 145 H 110 H 113 H (75-99) mg/dL Calcium (8.4-10.2) mg/dL Magnesium (1.6-2.3) mg/dL 08/18/16 08/18/16 08/18/16 Range/Units 00:21 01:19 02:40 RBC (4.30-5.90) m/uL Hgb (13.0-17.5) gm/dL Hct (39.0-53.0) % MCV (80.0-100.0) fL Plt Count (150-450) k/uL Lymphocytes # (1.0-4.8) k/uL ABG pH (7.35-7.45) ABG Total CO2 (19-24) mmol/L ABG O2 Saturation (94-97) % Chloride (98-107) mmol/L BUN (9-20) mg/dL Creatinine (0.66-1.25) mg/dL Glucose (74-99) mg/dL POC Glucose (mg/dL) 117 H 155 H 153 H (75-99) mg/dL Calcium (8.4-10.2) mg/dL Magnesium (1.6-2.3) mg/dL 08/18/16 08/18/16 08/18/16 Range/Units 04:30 04:30 04:35 RBC 2.97 L (4.30-5.90) m/uL Hgb 9.5 L (13.0-17.5) gm/dL Hct 29.7 L (39.0-53.0) % MCV 100.1 H (80.0-100.0) fL Plt Count 67 L (150-450) k/uL Lymphocytes # 0.6 L (1.0-4.8) k/uL ABG pH (7.35-7.45) ABG Total CO2 (19-24) mmol/L ABG O2 Saturation (94-97) % Chloride 110 H (98-107) mmol/L BUN 49 H (9-20) mg/dL Creatinine 1.42 H (0.66-1.25) mg/dL Glucose 154 H (74-99) mg/dL POC Glucose (mg/dL) 134 H (75-99) mg/dL Calcium 7.7 L (8.4-10.2) mg/dL Magnesium 3.0 H (1.6-2.3) mg/dL 08/18/16 08/18/16 08/18/16 Range/Units 07:01 08:10 08:42 RBC (4.30-5.90) m/uL Hgb (13.0-17.5) gm/dL Hct (39.0-53.0) % MCV (80.0-100.0) fL Plt Count (150-450) k/uL Lymphocytes # (1.0-4.8) k/uL ABG pH 7.46 H (7.35-7.45) ABG Total CO2 25 H (19-24) mmol/L ABG O2 Saturation 98.0 H (94-97) % Chloride (98-107) mmol/L BUN (9-20) mg/dL Creatinine (0.66-1.25) mg/dL Glucose (74-99) mg/dL POC Glucose (mg/dL) 129 H 133 H (75-99) mg/dL Calcium (8.4-10.2) mg/dL Magnesium (1.6-2.3) mg/dL 08/18/16 08/18/16 Range/Units 08:42 10:16 RBC (4.30-5.90) m/uL Hgb (13.0-17.5) gm/dL Hct (39.0-53.0) % MCV (80.0-100.0) fL Plt Count (150-450) k/uL Lymphocytes # (1.0-4.8) k/uL ABG pH (7.35-7.45) ABG Total CO2 (19-24) mmol/L ABG O2 Saturation (94-97) % Chloride (98-107) mmol/L BUN (9-20) mg/dL Creatinine (0.66-1.25) mg/dL Glucose (74-99) mg/dL POC Glucose (mg/dL) 133 H 136 H (75-99) mg/dL Calcium (8.4-10.2) mg/dL Magnesium (1.6-2.3) mg/dL Microbiology - Last 24 Hours (Table) 08/14/16 19:56 Gram Stain - Final Sputum Sputum Culture - Final Serratia marcescens - Imaging and Cardiology Chest x-ray: image reviewed Assessment and Plan (1) Diabetes Status: Acute (2) Hyperlipidemia Status: Acute (3) History of pulmonary embolus (PE) Status: Acute (4) History of deep vein thrombosis Status: Acute (5) Thrombocytopenia Status: Acute (6) Coronary artery disease Status: Acute Plan: 1. Continue statin, Lovenox. Decrease beta abran to 12.5 twice a day. Aspirin, Plavix remain on hold secondary to thrombocytopenia 2. Decrease amiodarone to 200 mg daily per cardiology for atrial fibrillation prophylaxis.. 3. Ventilator management per pulmonology. Wean O2 as tolerated. 4. Continue tube feedings 5. Antibiotics per pulmonary. Sputum culture positive for Serratia marcescens 6. Daily labs, chest x-rays. 7. GI/DVT prophylaxis. 8. More recommendations as patient progresses. Time with Patient: Greater than 30 <Ramin Traore - Last Filed: 08/18/16 18:12> Objective - Vital Signs Vital signs: Vital Signs Temp 100.3 F H 08/18/16 16:00 Pulse 59 L 08/18/16 17:00 Resp 15 08/18/16 17:00 BP 122/53 08/18/16 17:00 Pulse Ox 99 08/18/16 17:00 Intake & Output 08/17/16 08/18/16 08/18/16 18:59 06:59 18:59 Intake Total 1455.061 7652.198 654.301 Output Total 745 930 785 Balance 346.701 293.198 -130.699 Weight 120.6 kg Intake: IV 422 402 414 Sodium Chloride 0.9% 1, 250 230 260 000 ml @ 50 mls/hr IV . Q20H [facility] Rx#:[id number] cefTAZidime 2 gm In 100 100 100 Sodium Chloride 0.9% 100 ml @ 100 mls/hr IVPB Q12HR [facility] Rx#:[id number] pressure bag 72 72 54 Intake, IV Titration 414.701 281.198 56.301 Amount Amiodarone 450 mg In 272.132 Dextrose 5% in Water 250 ml @ 1 MG/MIN 34.53 mls/ hr IV .Q7H31M [facility] Rx#: [id number] Insulin Regular 100 unit 8.634 43.408 18.15 In Sodium Chloride 0.9% 100 ml @ Titrate IV .Q0M PRN Rx#:[id number] Propofol 500 mg In Empty 83.935 117.790 38.151 Bag 1 bag @ Titrate IV . Q0M [facility]N Rx#:[id number] Sodium Chloride 0.9% 1, 50 120 000 ml @ 50 mls/hr IV . Q20H [facility] Rx#:[id number] Oral 40 Tube Feeding 225 480 144 Other 30 60 Output: Chest Tube Drainage 70 80 0 Chest Tube Left Lateral 70 80 0 Chest Drainage 90 100 130 Left Calf 90 100 130 Urine 585 750 655 Other: Voiding Method Indwelling Catheter Indwelling Catheter Indwelling Catheter # Bowel Movements 0 0 ABP, PAP, CO, CI - Last Documented Arterial Blood Pressure 175/54 Pulmonary Artery Pressure 41/23 Cardiac Output 7.4 Cardiac Index 3.3 - Labs CBC & Chem 7: 08/18/16 04:30 05/24/17 10:19 Labs: Abnormal Lab Results - Last 24 Hours (Table) 08/17/16 08/17/16 08/17/16 Range/Units 18:29 20:22 22:47 RBC (4.30-5.90) m/uL Hgb (13.0-17.5) gm/dL Hct (39.0-53.0) % MCV (80.0-100.0) fL Plt Count (150-450) k/uL Lymphocytes # (1.0-4.8) k/uL ABG pH (7.35-7.45) ABG Total CO2 (19-24) mmol/L ABG O2 Saturation (94-97) % Chloride (98-107) mmol/L BUN (9-20) mg/dL Creatinine (0.66-1.25) mg/dL Glucose (74-99) mg/dL POC Glucose (mg/dL) 145 H 110 H 113 H (75-99) mg/dL Calcium (8.4-10.2) mg/dL Magnesium (1.6-2.3) mg/dL 08/18/16 08/18/16 08/18/16 Range/Units 00:21 01:19 02:40 RBC (4.30-5.90) m/uL Hgb (13.0-17.5) gm/dL Hct (39.0-53.0) % MCV (80.0-100.0) fL Plt Count (150-450) k/uL Lymphocytes # (1.0-4.8) k/uL ABG pH (7.35-7.45) ABG Total CO2 (19-24) mmol/L ABG O2 Saturation (94-97) % Chloride (98-107) mmol/L BUN (9-20) mg/dL Creatinine (0.66-1.25) mg/dL Glucose (74-99) mg/dL POC Glucose (mg/dL) 117 H 155 H 153 H (75-99) mg/dL Calcium (8.4-10.2) mg/dL Magnesium (1.6-2.3) mg/dL 08/18/16 08/18/16 08/18/16 Range/Units 04:30 04:30 04:35 RBC 2.97 L (4.30-5.90) m/uL Hgb 9.5 L (13.0-17.5) gm/dL Hct 29.7 L (39.0-53.0) % MCV 100.1 H (80.0-100.0) fL Plt Count 67 L (150-450) k/uL Lymphocytes # 0.6 L (1.0-4.8) k/uL ABG pH (7.35-7.45) ABG Total CO2 (19-24) mmol/L ABG O2 Saturation (94-97) % Chloride 110 H (98-107) mmol/L BUN 49 H (9-20) mg/dL Creatinine 1.42 H (0.66-1.25) mg/dL Glucose 154 H (74-99) mg/dL POC Glucose (mg/dL) 134 H (75-99) mg/dL Calcium 7.7 L (8.4-10.2) mg/dL Magnesium 3.0 H (1.6-2.3) mg/dL 08/18/16 08/18/16 08/18/16 Range/Units 07:01 08:10 08:42 RBC (4.30-5.90) m/uL Hgb (13.0-17.5) gm/dL Hct (39.0-53.0) % MCV (80.0-100.0) fL Plt Count (150-450) k/uL Lymphocytes # (1.0-4.8) k/uL ABG pH 7.46 H (7.35-7.45) ABG Total CO2 25 H (19-24) mmol/L ABG O2 Saturation 98.0 H (94-97) % Chloride (98-107) mmol/L BUN (9-20) mg/dL Creatinine (0.66-1.25) mg/dL Glucose (74-99) mg/dL POC Glucose (mg/dL) 129 H 133 H (75-99) mg/dL Calcium (8.4-10.2) mg/dL Magnesium (1.6-2.3) mg/dL 08/18/16 08/18/16 08/18/16 Range/Units 08:42 10:16 12:26 RBC (4.30-5.90) m/uL Hgb (13.0-17.5) gm/dL Hct (39.0-53.0) % MCV (80.0-100.0) fL Plt Count (150-450) k/uL Lymphocytes # (1.0-4.8) k/uL ABG pH (7.35-7.45) ABG Total CO2 (19-24) mmol/L ABG O2 Saturation (94-97) % Chloride (98-107) mmol/L BUN (9-20) mg/dL Creatinine (0.66-1.25) mg/dL Glucose (74-99) mg/dL POC Glucose (mg/dL) 133 H 136 H 122 H (75-99) mg/dL Calcium (8.4-10.2) mg/dL Magnesium (1.6-2.3) mg/dL 08/18/16 08/18/16 08/18/16 Range/Units 14:18 16:02 18:06 RBC (4.30-5.90) m/uL Hgb (13.0-17.5) gm/dL Hct (39.0-53.0) % MCV (80.0-100.0) fL Plt Count (150-450) k/uL Lymphocytes # (1.0-4.8) k/uL ABG pH (7.35-7.45) ABG Total CO2 (19-24) mmol/L ABG O2 Saturation (94-97) % Chloride (98-107) mmol/L BUN (9-20) mg/dL Creatinine (0.66-1.25) mg/dL Glucose (74-99) mg/dL POC Glucose (mg/dL) 134 H 135 H 126 H (75-99) mg/dL Calcium (8.4-10.2) mg/dL Magnesium (1.6-2.3) mg/dL Microbiology - Last 24 Hours (Table) 08/14/16 19:56 Gram Stain - Final Sputum Sputum Culture - Final Serratia marcescens Assessment and Plan (1) Coronary artery disease Status: Acute Plan: The patient was seen and examined. Agree with the above assessment and plan. He continues to have sinus bradycardia. We will decrease his beta abran to 12.5 mg twice a day. He remains intubated. His PEEP is down to 5 today. The plan is to wean to extubate once he wakes up some more. Continues to have thick secretions from his ET tube. Infectious disease is following him and started him on antibiotics secondary to Serratia in the sputum. He has thrombocytopenia which has been stable. His kidney function is improving with a creatinine of 1.4 today. We will continue with tube feeds. We will also obtain a PICC line in anticipation of long-term need for intravenous access.
--- NOTE | 2016-08-18 11:51 | P.ARTDOP ---
Arterial Doppler LOWER EXTREMITY ARTERIAL DOPPLER: DATE OF SERVICE: 08/10/2016 Reason for study: Pre-CABG. Doppler waveforms: Multiphasic bilaterally throughout. Pulse volume recording: []. Pressure gradients: None. Ankle-brachial indices: Greater than 1 bilaterally. Toe pressures: [] on the right, [] on the left Impression: Normal study.
--- NOTE | 2016-08-18 11:53 | P.VSCSTY ---
Greater Saphenous Vein Mapping This is bilateral lower extremity greater saphenous vein mapping. Date of service 08/09/2016 Vein quality and ultrasound appearance normal. Vein size groin right 7.0 x 7.2 groin left 5.5 x 5.1 High thigh right 6.6 x 4.7 high thigh left 5.4 x 4.0 Mid thigh right 6.1 x 4.4 mid thigh left 5.2 x 4.1 Above-knee right 4.5 x 3.6 above- knee left 5.1 x 3.0 Below knee right 3.4 x 2.8 below-knee left 6.4 x 4.0 Mid calf right 4.7 x 3.2 mid calf left 4.8 x 2.6 Ankle right 3.2 x 2.8 ankle left 3.7 x 2.3 Impression usable bilateral greater saphenous vein.
--- NOTE | 2016-08-18 12:23 | P.PN ---
Subjective Principal diagnosis: Status post CABG postoperative day # 5 80-year-old male patient, complaining of exertional dyspnea over the past several months. The patient denied having any chest pain. 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 The patient was found to have occluded right coronary artery with collaterals filling from the left. The patient was found to have critical disease involving the left main coronary artery and critical disease involving diffuse marginal branch of circumflex and proximal LAD. Based on this, coronary artery bypass surgery was recommended. The patient was seen by cardiothoracic surgery and the tentative plan to undergo surgery on this patient is on Tuesday. The preoperative echocardiogram showed a preserved LV function with an ejection fraction of 50-55%. No evidence of any pulmonary hypertension. No evidence of any valvular abnormalities. There is evidence of hypertensive heart disease with concentric left ventricular hypertrophy. Chest x-ray shows no acute cardio pulmonary process. He has history of pulmonary embolism and DVT and the patient has been maintained on anticoagulation on outpatient basis with warfarin. On today's evaluation of 08/11/2016 the patient is stable. The patient has no specific complaints. The patient is using his incentive spirometer. The patient was found to have chronic thrombocytopenia and for that reason a hematology consultation was obtained. History of any chest pain. He remains on IV heparin. Awaiting surgery on Tuesday. A bedside spirometry is still to be done. On 08/13/2016 I'm seeing this patient following his coronary bypass surgery. The patient underwent the surgery without any major complication. I discussed the case with the thoracic surgeon and the intraoperative course was essentially uncomplicated. The patient currently is intubated on mechanical ventilator. He is still sedated. He is hemodynamically stable. He is on a nitroglycerin and Cleviprex Drip for tight blood pressure control. The patient' s cardiac output is at 6.3 with an index of 2.8. PA pressures 29/17. The patient is also has his chest tubes in place with total amount of output being low at this point despite his underlying thrombocytopenia. He is also on an insulin drip at 40 units an hour for blood sugar control. Chest x-ray shows adequate expansion of both lungs and the chest tubes, ET tube and the [place]-Laya catheter in place. The blood gases showed a pH of 7.31 with a pCO2 of 48 and pO2 of 115 and it was not an FiO2 of 100% and I wean down the FiO2 down to 70% and the saturation is currently above 95%. The patient is also on assist control mode of ventilation with a PEEP of 5 and FiO2 of 70% with a tidal volume of 550. His rate is at 12. Postoperative platelet counts is at 42,000. Hemoglobin is at 10.9. The patient has not required any platelet transfusions. On 08/14/2016 the patient remains intubated on a mechanical ventilator. We failed to wean and extubate this patient yesterday because of oxygenation problems. This morning, the patient remained on assist control mode at the rate of 12, tidal volume 500, FiO2 of 60% and a PEEP of 5. The most recent blood gases showed a pH of 7.44 with a pCO2 of 24 and pO2 of 67. Chest x-ray is showing regular postsurgical changes with a mediastinal and the pleural chest tubes in place, ET tube is in a good location. The patient hemodynamically stable. He remains on a combination of nitroglycerin and Cleviprex drip for blood pressure control. His cardiac output as above 7 and the index is at 3.5. Is producing adequate amount of urine output. He remains sedated with Diprivan which is running at 30 mics. Nitroglycerin drip is running at 5 mics per minute and the Cleviprex is at 60 mg an hour. The patient is also on insulin drip at 10 units an hour. Output from the chest tubes have been 20 mL an hour. Meanwhile the patient had developed an acute kidney injury with a creatinine being up to 1.3. The bicarb level is down to 16 and the patient has a informed of non-anion gap metabolic acidosis. On 08/15/2016, the patient remains intubated. I was unable to wean this patient off the mechanical ventilator for several reasons. First and foremost, the patient was having borderline oxygenation. At the later stage, the patient started acting septic where he started having chills and fever and purulent foul -smelling respiratory secretions were also suctioned from his orotracheal tube. Based on all this, cultures and pain and the patient was started on IV Fortaz. Meanwhile, the patient was given IV fluids, overnight he received a bolus of normal saline 1 L and 2 boluses of albumin 12.5 g which improved his urine output. At this point in time, the patient is postop day #2. He is resting comfortably in bed. He is sedated with Diprivan and is calm and comfortable. He is an assist-control mode of ventilation and the most recent vent settings include an assist-control of 12, tidal volume of 600, FiO2 of 70% and a PEEP of 8. The most recent blood gases showed a pH of 7.47 with a pCO2 of 30 and pO2 of 78. Nevertheless, his pulse ox currently on the monitor is at 99% and FiO2 has been drop down to 60% and we will gradually weaning it down to maintain a saturation above 95%. He is afebrile for now. He still has a right IJ [place]Laya catheter and hemodynamic parameters show a cardiac output of 6 with an index of 2.7. The patient's white cell count is not elevated at 5.7. He will was stable at 10.6. Renal function is impaired with a creatinine of 1.4. He is off the Catapres drip. He is off the nitroglycerin drip. He is producing around 20-30 mL of urine output on an hourly basis and he has gained significant amount of weight and there is third spacing. Chest x-ray shows increased tone vessel markings. ET tube and NG tube are all in good location. The KARL drain in the left lower extremity is in place and the total amount of output is 10 mL. The 2 mediastinal chest tubes in the left pleural chest tubes are also in place with minimal amount of output. Platelet count is stable at 40 ,000. He insulin drip is on hold for now. On 08/16/2016, patient remains intubated, his gases are very marginal, remains on FiO2 of 70%, PEEP is now up to 12, chest x-ray shows what looks like a right lower lobe pneumonia and consolidation in the medial aspect of the right lower lobe. Patient is on broad-spectrum antibiotics coverage. Ventilator settings were reviewed, she is presently on FiO2 of 70%, PEEP of 12, tidal volume of 550 assist control rate of 14. Labs were reviewed, WBC count is 11.9 hemoglobin is 10.9. ABG showed a pO2 of 61 pCO2 of 36 pH of 7.42. Basic metabolic profile is normal however his BUN is 41 and creatinine is 1.40 baseline creatinine was 1.0 on 08/13. Chest x-ray showed cardiomegaly, worsening by basilar airspace disease especially at the right base and small pleural effusions noted. Patient is receiving Lasix daily. Remains on propofol drip. And fully sedated. On 08/17/2016, patient seems to have made a significant improvement from the pulmonary perspective. I was able to cut down his FiO2 to 45%, PEEP is down to 5, tidal volume is 550, and assist control rate is 14. ABG this morning showed a pO2 of 84 pCO2 of 34 pH of 7.42. However when attempted to wean the patient, he went into atrial fibrillation with RVR, hence I decided to hold back on weaning and placed back on assist control mode of mechanical ventilation. CBC showed a hemoglobin of 10.4 WBC count is 8.3. Basic metabolic profile is normal BUN is 58 creatinine is 1.60. Yesterday, patient was placed on Lovenox at 80 mg subcu every 12 hours, and this is mostly to replace his Coumadin since the patient had previous history of hypercoagulable state and pulmonary embolism , and I felt it would be worthwhile placing him on Lovenox instead of Coumadin for the time being. This was also discussed with the surgeon on the case. Platelets remain about the same today compared to yesterday. Not much of a change but they have always been low. On 08/18/2016, patient remains on mechanical ventilation, sedated, patient failed weaning yesterday because of tachycardia and increased shortness of breath upon initial weaning trial. Today however I plan to discontinue propofol , and give him another weaning trial today. Patient seems to be hemodynamically stable. Heart rate is in the 60s. Vent settings tidal volume of 550 assist control of 14 FiO2 is 45% PEEP is 5. ABG showed a pO2 of 97 pCO2 of 35 pH of 7.46. Chest x-ray showed by basilardisease, and small pleural effusions right more so than left. Sputum has been positive for Serratia marcescens, patient remains on Fortaz. The Serratia marcescens is sensitive to Fortaz. CBC is showing WBC count of 6.2 hemoglobin 9.5. Electrolytes were noted to be normal. BUN is 49 creatinine is 1.42. Patient remains on Lovenox every 12 hours. Objective - Vital Signs Vital signs: Vital Signs Temp 99.0 F 08/18/16 08:00 Pulse 62 08/18/16 11:38 Resp 18 08/18/16 10:00 BP 144/58 08/18/16 11:00 Pulse Ox 98 08/18/16 11:00 Intake & Output 08/17/16 08/18/16 08/18/16 18:59 06:59 18:59 Intake Total 0127.480 8855.198 474.301 Output Total 745 930 305 Balance 346.701 293.198 169.301 Weight 120.6 kg Intake: IV 422 402 234 Sodium Chloride 0.9% 1, 250 230 110 000 ml @ 50 mls/hr IV . Q20H [facility] Rx#:[id number] cefTAZidime 2 gm In 100 100 100 Sodium Chloride 0.9% 100 ml @ 100 mls/hr IVPB Q12HR [facility] Rx#:[id number] pressure bag 72 72 24 Intake, IV Titration 414.701 281.198 56.301 Amount Amiodarone 450 mg In 272.132 Dextrose 5% in Water 250 ml @ 1 MG/MIN 34.53 mls/ hr IV .[id number] [facility] Rx#: [id number] Insulin Regular 100 unit 8.634 43.408 18.15 In Sodium Chloride 0.9% 100 ml @ Titrate IV .Q0M PRN Rx#:[id number] Propofol 500 mg In Empty 83.935 117.790 38.151 Bag 1 bag @ Titrate IV . Q0M PRN Rx#:[id number] Sodium Chloride 0.9% 1, 50 120 000 ml @ 50 mls/hr IV . Q20H [facility] Rx#:[id number] Oral 40 Tube Feeding 225 480 144 Other 30 60 Output: Chest Tube Drainage 70 80 Chest Tube Left Lateral 70 80 Chest Drainage 90 100 Left Calf 90 100 Urine 585 750 305 Other: Voiding Method Indwelling Catheter Indwelling Catheter Indwelling Catheter # Bowel Movements 0 ABP, PAP, CO, CI - Last Documented Arterial Blood Pressure 175/54 Pulmonary Artery Pressure 41/23 Cardiac Output 7.4 Cardiac Index 3.3 - Exam The patient is intubated on a mechanical ventilator. He is sedated with Diprivan and calm and comfortable. Orogastric and orotracheal tube in place. The patient has a right IJ [place]aya catheter Cordis in place.Head exam was generally normal. There was no scleral icterus or corneal arcus. Mucous membranes were moist.Neck was supple and without jugular venous distension, thyromegaly, or carotid bruits. Carotids were easily palpable bilaterally. There was no adenopathy. Lung sounds are equal and symmetrical breath sounds without any rhonchi or wheezes or any crackles. All of the chest tubes are all in place. Heart sounds are regular, positive S1-S2. No cervical murmurs appreciated. Sternum stable clean and intact.Abdominal exam slightly distended and diminished bowel sounds.. The abdomen was soft, non-tender, and without masses, organomegaly, or appreciable enlargement of the abdominal aorta. Extremities show diminished pulses. There is no cyanosis or clubbing. All of the surgical wound sites are dry clean and intact at this point. Neurologically the patient remains sedated. - Labs CBC & Chem 7: 08/18/16 04:30 08/18/16 10:19 Labs: Abnormal Lab Results - Last 24 Hours (Table) 08/17/16 08/17/16 08/17/16 Range/Units 13:06 15:58 18:03 RBC (4.30-5.90) m/uL Hgb (13.0-17.5) gm/dL Hct (39.0-53.0) % MCV (80.0-100.0) fL Plt Count (150-450) k/uL Lymphocytes # (1.0-4.8) k/uL ABG pH (7.35-7.45) ABG Total CO2 (19-24) mmol/L ABG O2 Saturation (94-97) % Chloride (98-107) mmol/L BUN (9-20) mg/dL Creatinine (0.66-1.25) mg/dL Glucose (74-99) mg/dL POC Glucose (mg/dL) 146 H 129 H 110 H (75-99) mg/dL Calcium (8.4-10.2) mg/dL Magnesium (1.6-2.3) mg/dL 08/17/16 08/17/16 08/17/16 Range/Units 18:29 20:22 22:47 RBC (4.30-5.90) m/uL Hgb (13.0-17.5) gm/dL Hct (39.0-53.0) % MCV (80.0-100.0) fL Plt Count (150-450) k/uL Lymphocytes # (1.0-4.8) k/uL ABG pH (7.35-7.45) ABG Total CO2 (19-24) mmol/L ABG O2 Saturation (94-97) % Chloride (98-107) mmol/L BUN (9-20) mg/dL Creatinine (0.66-1.25) mg/dL Glucose (74-99) mg/dL POC Glucose (mg/dL) 145 H 110 H 113 H (75-99) mg/dL Calcium (8.4-10.2) mg/dL Magnesium (1.6-2.3) mg/dL 08/18/16 08/18/16 08/18/16 Range/Units 00:21 01:19 02:40 RBC (4.30-5.90) m/uL Hgb (13.0-17.5) gm/dL Hct (39.0-53.0) % MCV (80.0-100.0) fL Plt Count (150-450) k/uL Lymphocytes # (1.0-4.8) k/uL ABG pH (7.35-7.45) ABG Total CO2 (19-24) mmol/L ABG O2 Saturation (94-97) % Chloride (98-107) mmol/L BUN (9-20) mg/dL Creatinine (0.66-1.25) mg/dL Glucose (74-99) mg/dL POC Glucose (mg/dL) 117 H 155 H 153 H (75-99) mg/dL Calcium (8.4-10.2) mg/dL Magnesium (1.6-2.3) mg/dL 08/18/16 08/18/16 08/18/16 Range/Units 04:30 04:30 04:35 RBC 2.97 L (4.30-5.90) m/uL Hgb 9.5 L (13.0-17.5) gm/dL Hct 29.7 L (39.0-53.0) % MCV 100.1 H (80.0-100.0) fL Plt Count 67 L (150-450) k/uL Lymphocytes # 0.6 L (1.0-4.8) k/uL ABG pH (7.35-7.45) ABG Total CO2 (19-24) mmol/L ABG O2 Saturation (94-97) % Chloride 110 H (98-107) mmol/L BUN 49 H (9-20) mg/dL Creatinine 1.42 H (0.66-1.25) mg/dL Glucose 154 H (74-99) mg/dL POC Glucose (mg/dL) 134 H (75-99) mg/dL Calcium 7.7 L (8.4-10.2) mg/dL Magnesium 3.0 H (1.6-2.3) mg/dL 08/18/16 08/18/16 08/18/16 Range/Units 07:01 08:10 08:42 RBC (4.30-5.90) m/uL Hgb (13.0-17.5) gm/dL Hct (39.0-53.0) % MCV (80.0-100.0) fL Plt Count (150-450) k/uL Lymphocytes # (1.0-4.8) k/uL ABG pH 7.46 H (7.35-7.45) ABG Total CO2 25 H (19-24) mmol/L ABG O2 Saturation 98.0 H (94-97) % Chloride (98-107) mmol/L BUN (9-20) mg/dL Creatinine (0.66-1.25) mg/dL Glucose (74-99) mg/dL POC Glucose (mg/dL) 129 H 133 H (75-99) mg/dL Calcium (8.4-10.2) mg/dL Magnesium (1.6-2.3) mg/dL 08/18/16 08/18/16 Range/Units 08:42 10:16 RBC (4.30-5.90) m/uL Hgb (13.0-17.5) gm/dL Hct (39.0-53.0) % MCV (80.0-100.0) fL Plt Count (150-450) k/uL Lymphocytes # (1.0-4.8) k/uL ABG pH (7.35-7.45) ABG Total CO2 (19-24) mmol/L ABG O2 Saturation (94-97) % Chloride (98-107) mmol/L BUN (9-20) mg/dL Creatinine (0.66-1.25) mg/dL Glucose (74-99) mg/dL POC Glucose (mg/dL) 133 H 136 H (75-99) mg/dL Calcium (8.4-10.2) mg/dL Magnesium (1.6-2.3) mg/dL Microbiology - Last 24 Hours (Table) 08/14/16 19:56 Gram Stain - Final Sputum Sputum Culture - Final Serratia marcescens Assessment and Plan Plan: 1 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 The patient underwent coronary bypass surgery and currently is postop day 5 2 postoperative hypoxemia with difficulties and weaning due to ongoing oxygenation problem. Meanwhile the patient is producing purulent sputum and he had fever along with foul-smelling rest or secretions. Cultures were obtained and is showing gram-negative and gram-positive cocci and the patient is currently on IV Fortaz. White cell count is not elevated. No hypotension. Mild lactic acidosis is present. 2 diabetes mellitus on insulin drip for blood sugar control 3 postoperative hypertension currently off nitroglycerin drip and Cleviprex 4 post thoracotomy respiratory failure, expected, currently the oxygenation remains borderline . Chest x-ray findings are consistent with increased interstitial markings probably related to fluid overload. The patient has adequate cardiac index output for now. Hemodynamically stable. Possibility of acute lung injury is not entirely ruled out. But based on the gases today, there seems to be a significant improvement this was also noted on the chest x- ray today. 5 previous history of DVT and pulmonary embolism , maintained on warfarin outpatient basis, patient will be restarted on Lovenox 80 mg subcu every 12 hours beginning today. In the meantime we'll continue to monitor his low platelets. Patient has chronic thrombocytopenia to begin with. 6 thrombocytopenia him a stable with a platelet count, without evidence of any acute bleeding 7 acute kidney injury, creatinine is down to 1.42 8 postoperative respiratory failure, failure to wean which was not expected, mostly secondary to hypoxic respiratory failure secondary to pneumonia, hospital -acquired, sputum is positive for gram-negative bacilli, final report is pending. suspect some component of congestive heart failure, and possible acute lung injury. Possibility of pulmonary embolism is not entirely ruled out , but felt to be less likely. However will empirically continue antibiotics, bronchodilators, and Lovenox subcu. Recommendation: I plan to give the patient another weaning trial today, we'll discontinue propofol, will possibly utilize Precedex if necessary. Patient will be awakened, a CPAP with pressure support trial be given, and if tolerated will proceed with extubation today hopefully. Discussed the plan with the nurse taking care of the patient, and we will proceed with weaning trial hopefully today. Critical care time is 32 minutes. Time with Patient: Greater than 30
[2016-08-18 12:35] LABS: Glucose,Whole Blood 122 mg/dL (75-99)
[2016-08-18 14:20] LABS: Glucose,Whole Blood 134 mg/dL (75-99)
--- NOTE | 2016-08-18 14:34 | PN ---
Mr. Michele is an 80-year-old male patient who has 2+ coronary artery disease who underwent coronary artery bypass grafting several days back. He remains on a mechanical ventilator. He failed his weaning trial because he was tachycardic and short of breath. Today his heart rates are in the 60s. Chest x-ray shows pleural effusions, right greater than left. He is being treated for Serratia pneumonitis and is on Fortaz, white count is normal. On examination, his blood pressure is 144/58 mmHg, pulse rate is in the 50s and 60s, sometimes increases in the 80s at night. The rhythm is in sinus rhythm with PACs followed by junctional escape. Breath sounds reduced bilaterally. Heart sounds are distant. Abdomen is soft. He is intubated. Rhythm was reviewed and shows sinus rhythm with PAC, followed by a pause and an escaped beat. SUGGEST: Continue cardiac medications but reduce metoprolol to 12.5 mg twice daily. Also reduce the amiodarone to 200 mg once daily. Although he is relatively bradycardic most times, when he wakes up his heart rate goes up and I suspect that once he gets extubated, the heart rates will improve. He has already received IV amiodarone for PAF and we can cut back on the dose and limit the dose to only one month of amiodarone.
[2016-08-18 16:06] LABS: Glucose,Whole Blood 135 mg/dL (75-99)
[2016-08-18 18:08] LABS: Glucose,Whole Blood 126 mg/dL (75-99)
[2016-08-18 19:53] LABS: Glucose,Whole Blood 92 mg/dL (75-99)
[2016-08-18 21:06] LABS: Glucose,Whole Blood 138 mg/dL (75-99)
[2016-08-18] MEDS: INSULIN REGULAR 100 UNIT in SODIUM CHLORIDE 0.9% 100 ML IV PRN (21:07)
[2016-08-18] MEDS ORDERED: LORazepam 2 MG/ML SYRINGE IV PRN (21:11)
--- NOTE | 2016-08-18 21:45 | PN ---
DATE OF SERVICE: 08/18/2016 PRESENTING COMPLAINT: Status post CABG. INTERVAL HISTORY: This is a patient who is status post CABG x2 and is currently on the ventilator with an FiO2 of 40%, PEEP of 8. Telemetry shows atrial fibrillation. Patient's drips include lactated Ringer's IV, propofol which is currently on hold, insulin. Patient has one left pleural chest tube in place. Patient appears comfortable on the ventilator. Review of systems cannot be done. Patient remains intubated. Current medications reviewed above. PHYSICAL EXAMINATION: VITAL SIGNS: Temperature 100.3, pulse 48, respirations 15, blood pressure 127/55, oxygen saturation 99% on the ventilator. GENERAL APPEARANCE: Patient remains intubated on the ventilator, resting comfortably. Patient is not conversant, not awake, does respond to noxious stimuli. EYES: Pupils equal. Conjunctivae normal. NECK: JVD unable to assess. Mass not palpable. Respiratory effort normal on the ventilator. LUNGS: Diminished breath sounds bilaterally. CARDIOVASCULAR: First and second sounds noted, heart rhythm irregular. Generalized edema. Chest wall: Patient has one chest tube. Midline incision covered with surgical dressing. ABDOMEN: Soft, nontender. Liver and spleen not palpable. NEUROLOGIC: Pupils equal. Plantars equivocal. INVESTIGATIONS: White blood cell count 6.2, hemoglobin 9.5, BUN 49, creatinine 1.42, blood glucose 154. Gram stain for sputum returned Serratia Marcescens. ASSESSMENT: 1. Status post coronary artery bypass graft for triple vessel coronary artery disease, slow to respond. 2. Coronary artery disease. 3. Diabetes mellitus, type II, on oral hypoglycemics. 4. 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 5. Hyperlipidemia controlled. 6. Primary osteoarthritis of multiple joints bilaterally. 7. Benign prosthetic hypertrophy, stable. 8. 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 9. Postoperative ventilator support, slow to wean. 10. Postoperative respiratory failure, secondary to pneumonia, hospital acquired, sputum cultures positive for gram-negative bacilli. Organism is Serratia Marcescens. PLAN: Continue medication current medication and treatment plan. Pulmonology has attempted spontaneous breathing trial and patient has not been successful. Currently propofol will remain off until such time patient is arousable. Cardiology suggests reducing metoprolol to 12.5 mg twice daily, amiodarone to 200 mg daily. Patient's heart rate is considerably lower than it has been over the previous days. Tube feedings will be continued at a rate of 36 liters hour x24 hours a day. Will continue to follow. Patient was seen and examined by nurse practitioner, Fiorella Kapadia, and all elements of the case were discussed and the attending, Dr. Long. I performed a history and physical examination of this patient and discussed the same with the dictator. I agree with the dictator's note. Any additional findings/opinions, etc. will be noted.
[2016-08-18] MEDS: METOPROLOL TARTRATE 12.5 MG TAB PO SCH (21:57)
[2016-08-18] MEDS: LATANOPROST 0.005% OPHTH DROPS 2.5 ML BTL BOTH EYES SCH (21:58)
[2016-08-19] MEDS: SODIUM CHLORIDE 0.9% 1,000 ML IV SCH (00:42)
[2016-08-19 00:43] LABS: Glucose,Whole Blood 163 mg/dL (75-99)
[2016-08-19 01:14] LABS: Glucose,Whole Blood 150 mg/dL (75-99)
[2016-08-19 03:19] LABS: Glucose,Whole Blood 126 mg/dL (75-99)
[2016-08-19] MEDS: IPRATROPIUM-ALBUTEROL 3 ML NEB INHALATION SCH ×6 (03:34→23:16)
[2016-08-19 04:20] LABS: Glucose,Whole Blood 137 mg/dL (75-99)
[2016-08-19 04:35] LABS: Basophils % (A) 0 %; CH 32.5; CHCM 32.6; Eosinophils # (A) 0.1 k/uL (0-0.7); Eosinophils % (A) 2 %; HCT 29.6 % (39.0-53.0); HDW 2.86; HGB 9.6 gm/dL (13.0-17.5); Luc # (Auto) 0.08; Luc % (Auto) 2; Lymphocytes # (A) 0.4 k/uL (1.0-4.8); Lymphocytes % (A) 11 %; MCH 32.6 pg (25.0-35.0); MCHC 32.5 g/dL (31.0-37.0); MCV 100.5 fL (80.0-100.0); Macrocytosis Slight; Mean Platelet Volume 10.8; Monocytes # (A) 0.4 k/uL (0-1.0); Monocytes % (A) 10 %; Neutrophils # (A) 3.1 k/uL (1.3-7.7); Neutrophils % (A) 75 %; RBC 2.94 m/uL (4.30-5.90); RDW 14.7 % (11.5-15.5); WBC 4.2 k/uL (3.8-10.6); WBC (Perox) 4.35
[2016-08-19 04:52] LABS: INR 1.1 (<1.1); Partial Thromboplastin Time 27.1 sec (22.0-30.0); Prothrombin Time 11.4 sec (9.0-12.0)
[2016-08-19 04:56] LABS: Anion Gap 8 mmol/L; Blood Urea Nitrogen 44 mg/dL (9-20); Calcium 7.7 mg/dL (8.4-10.2); Carbon Dioxide 24 mmol/L (22-30); Chloride 114 mmol/L (98-107); Glucose 135 mg/dL (74-99); Non-African American GFR(MDRD) 57 (>60 ml/min/1.73 sqM); Phosphorous 2.9 mg/dL (2.5-4.5); Potassium 4.1 mmol/L (3.5-5.1); Sodium 146 mmol/L (137-145)
[2016-08-19 06:31] LABS: Glucose,Whole Blood 129 mg/dL (75-99)
[2016-08-19 08:30] LABS: ABG Base Excess 0.7 mmol/L; ABG HCO3 24 mmol/L (21-25); ABG Oxygen Saturation 99.1 % (94-97); ABG PCO2 30 mmHg (35-45); ABG PH 7.51 (7.35-7.45); ABG PO2 123 mmHg (83-108); ABG TCO2 25 mmol/L (19-24)
[2016-08-19] MEDS: ATORVASTATIN 40 MG TAB PO SCH (08:31)
[2016-08-19] MEDS: AMIODARONE 200 MG TAB PO SCH (08:31)
[2016-08-19] MEDS: CHLORHEXIDINE GLUCONATE 15 ML CUP MUCOUS MEM SCH ×2 (08:31→20:17)
[2016-08-19] MEDS: METOPROLOL TARTRATE 12.5 MG TAB PO SCH ×2 (08:31→20:16)
[2016-08-19] MEDS: PANTOPRAZOLE 40 MG/10 ML VIAL IVP SCH (08:32)
[2016-08-19] MEDS: DORZOLAMIDE HCL 2% DROPS 10 ML BTL LEFT EYE SCH (08:32)
[2016-08-19] MEDS: MUPIROCIN 2% OINT 22 GM TUBE TOPICAL SCH ×2 (08:32→20:17)
[2016-08-19 10:04] LABS: Glucose,Whole Blood 149 mg/dL (75-99)
--- NOTE | 2016-08-19 10:14 | XR ---
EXAMINATION TYPE: XR chest 1V portable DATE OF EXAM: 08/19/2016 6:41 AM COMPARISON: 08/18/2016 INDICATION: Postop cardiac surgery TECHNIQUE: Single frontal view of the chest is obtained. FINDINGS: The heart size is normal. The pulmonary vasculature is normal. The lungs are clear. Endotracheal tube has its tip above the nick. Nasogastric tube has its tip in left upper quadrant o f the abdomen. Left-sided chest tube has its tip directed towards the left hilum. No pneumothorax is present. IMPRESSION: 1. No acute pulmonary process. 2. Multiple lines and catheters discussed above.
--- NOTE | 2016-08-19 10:24 | PN ---
Mr. Angel Michele is an 80-year-old male patient who underwent coronary artery bypass grafting for severe triple vessel coronary artery disease. I saw him on the 18 of August and this is a dictation pertaining to the 18 of August evaluation. I am dictating on the . Mr. Michele remains intubated. His heart rate is in the 50s and 60s. I reviewed his ECGs and telemetry strips and it shows sinus rhythm with PACs followed by a pause and a junctional escape rhythm. Breath sounds are reduced bilaterally. Some crackles at the bases. Heart sounds are distant. IMPRESSION: 1. Coronary artery disease, status post coronary artery bypass grafting. 2. Postoperative pneumonitis being treated for Serratia. SUGGEST: Reduce the dose of amiodarone oral to 200 mg p.o. daily and reduce the dose of metoprolol to 12.5 mg p.o. daily, but please continue ( ). Continue statins. Continue ICU care.
--- NOTE | 2016-08-19 10:33 | PN ---
DATE OF SERVICE: 08/18/2016 ATTENDING NOTE: This patient seen and examined by me on 08/18/16. I reviewed the note of my nurse practitioner, Ms. Kapadia. Discussed and agreed with the same. Patient remains on the ventilator, FiO2 of 40 and PEEP of 8. Propofol was discontinued earlier. Patient somewhat started to move about. ON EXAMINATION: LUNGS: Decreased breath sounds. CARDIOVASCULAR: First and second sounds normal. Patient is moving about. ASSESSMENT: Status post coronary artery bypass graft, being treated for ( ) also treated for pneumonia, growing Serratia marcescens. PLAN: Continue with antibiotics, supportive care, weaning as per Pulmonary and Cardiology. Will follow.
--- NOTE | 2016-08-19 11:04 | P.PN ---
<Juliana Albright - Last Filed: 08/19/16 10:54> Subjective Principal diagnosis: Multivessel coronary artery disease POD #6 coronary artery bypass grafting 2 vessels (left internal mammary artery to left anterior descending artery, saphenous vein graft to obtuse marginal artery). Endoscopic vein harvest left greater saphenous vein. Epi-aortic ultrasound. Transesophageal echocardiogram. Postoperative acute hypoxic respiratory failure requiring mechanical ventilation , failure to wean secondary to Serratia marcescens pneumonia, an unexpected postoperative complication. Patient remains on mechanical ventilation. He has been off sedation for 24 hours, he will open his eyes but does not follow any commands. He is off amiodarone drip, switched to oral amiodarone. Amiodarone and Lopressor dose is decreased yesterday per cardiology. Objective - Vital Signs Vital signs: Vital Signs Temp 98.5 F 08/19/16 08:00 Pulse 75 08/19/16 10:00 Resp 23 08/19/16 10:00 BP 119/47 08/19/16 10:00 Pulse Ox 97 08/19/16 10:00 Intake & Output 08/18/16 08/19/16 08/19/16 18:59 06:59 18:59 Intake Total 495.860 6840.042 372 Output Total 895 1090 450 Balance -163.299 -72.958 -78 Weight 118.25 kg 118.25 kg Intake: IV 486 384 312 Sodium Chloride 0.9% 1, 320 330 200 000 ml @ 50 mls/hr IV . Q20H [facility] Rx#:[id number] cefTAZidime 2 gm In 100 100 Sodium Chloride 0.9% 100 ml @ 100 mls/hr IVPB Q12HR [facility] Rx#:[id number] pressure bag 66 54 12 Intake, IV Titration 61.701 69.042 Amount Insulin Regular 100 unit 23.55 69.042 In Sodium Chloride 0.9% 100 ml @ Titrate IV .Q0M [facility]N Rx#:[id number] Propofol 500 mg In Empty 38.151 Bag 1 bag @ Titrate IV . Q0M [facility]N Rx#:[id number] Oral 40 Tube Feeding 144 504 60 Other 60 Output: Chest Tube Drainage 0 170 30 Chest Tube Left Lateral 0 170 30 Chest Drainage 130 320 125 Left Calf 130 320 125 Urine 765 450 295 Stool 150 Other: Voiding Method Indwelling Catheter Indwelling Catheter Indwelling Catheter # Voids 1 # Bowel Movements 0 0 ABP, PAP, CO, CI - Last Documented Arterial Blood Pressure 175/54 Pulmonary Artery Pressure 41/23 Cardiac Output 7.4 Cardiac Index 3.3 - Constitutional General appearance: Present: no acute distress, obese - Respiratory Details: Lungs sounds diminished bilaterally. Respirations even, nonlabored on mechanical ventilation. Current settings FiO2 45%, tidal volume 550, respiratory rate 14, PEEP 5. - Cardiovascular Details: S1, S2 present. Regular rate, irregular rhythm. Sinus rhythm with PACs on telemetry. Heart hugger in place. Teds/SCDs present. A/V epicardial pacemaker wires present. Trace bilateral lower extremity edema still present. - Gastrointestinal Gastrointestinal Comment(s): Abdomen soft, nontender, nondistended. Active bowel sounds 4 quadrants. Receiving tube feeding at 36 mL/h through OG tube. - Genitourinary Genitourinary Comment(s): Thornton present draining clear, yellow urine. Output 75 mL/h overnight. - Integumentary Integumentary Comment(s): Anterior chest incision well approximated and covered with dry intact dressing. - Neurologic Neurologic Comment(s): Again, patient has been off sedation for 24 hours. He will open his eyes to command but does not follow any other commands. He does withdraw to painful stimuli. - Allied health notes Allied health notes reviewed: nursing - Labs CBC & Chem 7: 08/19/16 04:15 08/19/16 04:15 Labs: Abnormal Lab Results - Last 24 Hours (Table) 08/18/16 08/18/16 08/18/16 Range/Units 12:26 14:18 16:02 RBC (4.30-5.90) m/uL Hgb (13.0-17.5) gm/dL Hct (39.0-53.0) % MCV (80.0-100.0) fL Plt Count (150-450) k/uL Lymphocytes # (1.0-4.8) k/uL ABG pH (7.35-7.45) ABG pCO2 (35-45) mmHg ABG pO2 (83-108) mmHg ABG Total CO2 (19-24) mmol/L ABG O2 Saturation (94-97) % Sodium (137-145) mmol/L Chloride (98-107) mmol/L BUN (9-20) mg/dL Glucose (74-99) mg/dL POC Glucose (mg/dL) 122 H 134 H 135 H (75-99) mg/dL Calcium (8.4-10.2) mg/dL Magnesium (1.6-2.3) mg/dL 08/18/16 08/18/16 08/19/16 Range/Units 18:06 21:05 00:21 RBC (4.30-5.90) m/uL Hgb (13.0-17.5) gm/dL Hct (39.0-53.0) % MCV (80.0-100.0) fL Plt Count (150-450) k/uL Lymphocytes # (1.0-4.8) k/uL ABG pH (7.35-7.45) ABG pCO2 (35-45) mmHg ABG pO2 (83-108) mmHg ABG Total CO2 (19-24) mmol/L ABG O2 Saturation (94-97) % Sodium (137-145) mmol/L Chloride (98-107) mmol/L BUN (9-20) mg/dL Glucose (74-99) mg/dL POC Glucose (mg/dL) 126 H 138 H 163 H (75-99) mg/dL Calcium (8.4-10.2) mg/dL Magnesium (1.6-2.3) mg/dL 08/19/16 08/19/16 08/19/16 Range/Units 01:04 03:17 04:15 RBC 2.94 L (4.30-5.90) m/uL Hgb 9.6 L (13.0-17.5) gm/dL Hct 29.6 L (39.0-53.0) % MCV 100.5 H (80.0-100.0) fL Plt Count 72 L (150-450) k/uL Lymphocytes # 0.4 L (1.0-4.8) k/uL ABG pH (7.35-7.45) ABG pCO2 (35-45) mmHg ABG pO2 (83-108) mmHg ABG Total CO2 (19-24) mmol/L ABG O2 Saturation (94-97) % Sodium (137-145) mmol/L Chloride (98-107) mmol/L BUN (9-20) mg/dL Glucose (74-99) mg/dL POC Glucose (mg/dL) 150 H 126 H (75-99) mg/dL Calcium (8.4-10.2) mg/dL Magnesium (1.6-2.3) mg/dL 08/19/16 08/19/16 08/19/16 Range/Units 04:15 04:18 06:29 RBC (4.30-5.90) m/uL Hgb (13.0-17.5) gm/dL Hct (39.0-53.0) % MCV (80.0-100.0) fL Plt Count (150-450) k/uL Lymphocytes # (1.0-4.8) k/uL ABG pH (7.35-7.45) ABG pCO2 (35-45) mmHg ABG pO2 (83-108) mmHg ABG Total CO2 (19-24) mmol/L ABG O2 Saturation (94-97) % Sodium 146 H (137-145) mmol/L Chloride 114 H (98-107) mmol/L BUN 44 H (9-20) mg/dL Glucose 135 H (74-99) mg/dL POC Glucose (mg/dL) 137 H 129 H (75-99) mg/dL Calcium 7.7 L (8.4-10.2) mg/dL Magnesium 3.0 H (1.6-2.3) mg/dL 08/19/16 08/19/16 Range/Units 08:14 10:02 RBC (4.30-5.90) m/uL Hgb (13.0-17.5) gm/dL Hct (39.0-53.0) % MCV (80.0-100.0) fL Plt Count (150-450) k/uL Lymphocytes # (1.0-4.8) k/uL ABG pH 7.51 H (7.35-7.45) ABG pCO2 30 L (35-45) mmHg ABG pO2 123 H (83-108) mmHg ABG Total CO2 25 H (19-24) mmol/L ABG O2 Saturation 99.1 H (94-97) % Sodium (137-145) mmol/L Chloride (98-107) mmol/L BUN (9-20) mg/dL Glucose (74-99) mg/dL POC Glucose (mg/dL) 149 H (75-99) mg/dL Calcium (8.4-10.2) mg/dL Magnesium (1.6-2.3) mg/dL - Imaging and Cardiology Chest x-ray: image reviewed Assessment and Plan (1) Diabetes Status: Acute (2) Hyperlipidemia Status: Acute (3) History of pulmonary embolus (PE) Status: Acute (4) History of deep vein thrombosis Status: Acute (5) Thrombocytopenia Status: Acute (6) Coronary artery disease Status: Acute (7) Postoperative acute respiratory failure Status: Acute (8) Pneumonia due to Serratia marcescens Status: Acute Plan: 1. Continue statin, beta abran. Aspirin, Plavix remain on hold secondary to thrombocytopenia 2. Continue amiodarone for atrial fibrillation prophylaxis 3. Lovenox on hold for 24 hours in order to place PICC line catheter. 4. CT of brain ordered per pulmonary. Results pending. Ativan discontinued secondary to possibility of oversedation. 5. Ventilator management per pulmonology. Wean O2 as tolerated. 6. Continue tube feedings 7. Antibiotics per pulmonary/ID. Sputum culture positive for Serratia marcescens 8. Daily labs, chest x-rays. 9. GI/DVT prophylaxis. 10. More recommendations as patient progresses. Time with Patient: Greater than 30 <Ramin Traore - Last Filed: 08/20/16 17:27> Objective - Vital Signs Vital signs: Vital Signs Temp 98.6 F 08/20/16 16:00 Pulse 70 08/20/16 16:00 Resp 25 H 08/20/16 16:00 BP 152/62 08/20/16 16:00 Pulse Ox 100 08/20/16 16:00 Intake & Output 08/19/16 08/20/16 08/20/16 18:59 06:59 18:59 Intake Total 762.478 3588.125 1020.058 Output Total 1030 840 756 Balance -333.292 600.125 264.058 Weight 118.25 kg 118.9 kg 118.9 kg Intake: IV 483 370 310 0.9 240 20 Lactated Ringers 1,000 ml 160 @ 20 mls/hr IV .Q24H [facility] Rx#:[id number] Sodium Chloride 0.9% 1, 350 000 ml @ 50 mls/hr IV . Q20H [facility] Rx#:[id number] cefTAZidime 2 gm In 100 100 100 Sodium Chloride 0.9% 100 ml @ 100 mls/hr IVPB Q12HR [facility] Rx#:[id number] pressure bag 33 30 30 Intake, IV Titration 63.708 60.125 50.058 Amount Insulin Regular 100 unit 13.708 60.125 50.058 In Sodium Chloride 0.9% 100 ml @ Titrate IV .Q0M PRN Rx#:[id number] Lactated Ringers 1,000 ml 50 @ 10 mls/hr IV .Q24H [facility] Rx#:[id number] Tube Feeding 150 1010 600 Other 60 Output: Chest Tube Drainage 70 40 40 Chest Tube Left Lateral 70 40 40 Chest Drainage 125 35 125 Left Calf 125 35 125 Urine 835 765 590 Stool 1 Other: Voiding Method Indwelling Catheter Indwelling Catheter Indwelling Catheter # Bowel Movements 1 ABP, PAP, CO, CI - Last Documented Arterial Blood Pressure 144/51 Pulmonary Artery Pressure 41/23 Cardiac Output 7.4 Cardiac Index 3.3 - Labs CBC & Chem 7: 08/20/16 05:30 08/20/16 05:30 Labs: Abnormal Lab Results - Last 24 Hours (Table) 08/19/16 08/19/16 08/19/16 Range/Units 17:22 18:13 20:36 RBC (4.30-5.90) m/uL Hgb (13.0-17.5) gm/dL Hct (39.0-53.0) % Plt Count (150-450) k/uL Lymphocytes # (1.0-4.8) k/uL ABG pH (7.35-7.45) ABG pCO2 (35-45) mmHg ABG pO2 (83-108) mmHg ABG O2 Saturation (94-97) % Sodium (137-145) mmol/L Chloride (98-107) mmol/L BUN (9-20) mg/dL Glucose (74-99) mg/dL POC Glucose (mg/dL) 123 H 138 H 161 H (75-99) mg/dL Calcium (8.4-10.2) mg/dL Magnesium (1.6-2.3) mg/dL Total Bilirubin (0.2-1.3) mg/dL AST (17-59) U/L Alkaline Phosphatase (38-126) U/L Total Protein (6.3-8.2) g/dL Albumin (3.5-5.0) g/dL 08/19/16 08/20/16 08/20/16 Range/Units 22:25 00:26 02:28 RBC (4.30-5.90) m/uL Hgb (13.0-17.5) gm/dL Hct (39.0-53.0) % Plt Count (150-450) k/uL Lymphocytes # (1.0-4.8) k/uL ABG pH (7.35-7.45) ABG pCO2 (35-45) mmHg ABG pO2 (83-108) mmHg ABG O2 Saturation (94-97) % Sodium (137-145) mmol/L Chloride (98-107) mmol/L BUN (9-20) mg/dL Glucose (74-99) mg/dL POC Glucose (mg/dL) 159 H 144 H 141 H (75-99) mg/dL Calcium (8.4-10.2) mg/dL Magnesium (1.6-2.3) mg/dL Total Bilirubin (0.2-1.3) mg/dL AST (17-59) U/L Alkaline Phosphatase (38-126) U/L Total Protein (6.3-8.2) g/dL Albumin (3.5-5.0) g/dL 08/20/16 08/20/16 08/20/16 Range/Units 04:50 05:30 05:30 RBC 2.95 L (4.30-5.90) m/uL Hgb 9.8 L (13.0-17.5) gm/dL Hct 29.2 L (39.0-53.0) % Plt Count 68 L (150-450) k/uL Lymphocytes # 0.6 L (1.0-4.8) k/uL ABG pH (7.35-7.45) ABG pCO2 (35-45) mmHg ABG pO2 (83-108) mmHg ABG O2 Saturation (94-97) % Sodium 148 H (137-145) mmol/L Chloride 116 H (98-107) mmol/L BUN 42 H (9-20) mg/dL Glucose 163 H (74-99) mg/dL POC Glucose (mg/dL) 143 H (75-99) mg/dL Calcium 7.7 L (8.4-10.2) mg/dL Magnesium 2.8 H (1.6-2.3) mg/dL Total Bilirubin 1.5 H (0.2-1.3) mg/dL AST 125 H (17-59) U/L Alkaline Phosphatase 156 H (38-126) U/L Total Protein 4.8 L (6.3-8.2) g/dL Albumin 2.2 L (3.5-5.0) g/dL 08/20/16 08/20/16 08/20/16 Range/Units 05:30 07:41 08:46 RBC (4.30-5.90) m/uL Hgb (13.0-17.5) gm/dL Hct (39.0-53.0) % Plt Count (150-450) k/uL Lymphocytes # (1.0-4.8) k/uL ABG pH 7.51 H (7.35-7.45) ABG pCO2 29 L (35-45) mmHg ABG pO2 122 H (83-108) mmHg ABG O2 Saturation 99.0 H (94-97) % Sodium (137-145) mmol/L Chloride (98-107) mmol/L BUN (9-20) mg/dL Glucose (74-99) mg/dL POC Glucose (mg/dL) 165 H 146 H (75-99) mg/dL Calcium (8.4-10.2) mg/dL Magnesium (1.6-2.3) mg/dL Total Bilirubin (0.2-1.3) mg/dL AST (17-59) U/L Alkaline Phosphatase (38-126) U/L Total Protein (6.3-8.2) g/dL Albumin (3.5-5.0) g/dL 08/20/16 08/20/16 08/20/16 Range/Units 10:37 12:24 14:23 RBC (4.30-5.90) m/uL Hgb (13.0-17.5) gm/dL Hct (39.0-53.0) % Plt Count (150-450) k/uL Lymphocytes # (1.0-4.8) k/uL ABG pH (7.35-7.45) ABG pCO2 (35-45) mmHg ABG pO2 (83-108) mmHg ABG O2 Saturation (94-97) % Sodium (137-145) mmol/L Chloride (98-107) mmol/L BUN (9-20) mg/dL Glucose (74-99) mg/dL POC Glucose (mg/dL) 155 H 164 H 147 H (75-99) mg/dL Calcium (8.4-10.2) mg/dL Magnesium (1.6-2.3) mg/dL Total Bilirubin (0.2-1.3) mg/dL AST (17-59) U/L Alkaline Phosphatase (38-126) U/L Total Protein (6.3-8.2) g/dL Albumin (3.5-5.0) g/dL 08/20/16 Range/Units 16:08 RBC (4.30-5.90) m/uL Hgb (13.0-17.5) gm/dL Hct (39.0-53.0) % Plt Count (150-450) k/uL Lymphocytes # (1.0-4.8) k/uL ABG pH (7.35-7.45) ABG pCO2 (35-45) mmHg ABG pO2 (83-108) mmHg ABG O2 Saturation (94-97) % Sodium (137-145) mmol/L Chloride (98-107) mmol/L BUN (9-20) mg/dL Glucose (74-99) mg/dL POC Glucose (mg/dL) 133 H (75-99) mg/dL Calcium (8.4-10.2) mg/dL Magnesium (1.6-2.3) mg/dL Total Bilirubin (0.2-1.3) mg/dL AST (17-59) U/L Alkaline Phosphatase (38-126) U/L Total Protein (6.3-8.2) g/dL Albumin (3.5-5.0) g/dL Assessment and Plan (1) Coronary artery disease Status: Acute Plan: The patient was seen and examined. I agree with the above assessment and plan. His thrombocytopenia has been stable. He did receive a computed tomography scan of the brain which was negative for any acute processes. He remains quite sleepy but does follow commands. I would avoid Ativan since we are actively assessing his mental status. We will continue with tube feedings and antibiotics.
--- NOTE | 2016-08-19 11:37 | CT ---
EXAMINATION TYPE: CT brain wo con DATE OF EXAM: 08/19/2016 11:32 AM COMPARISON: NONE HISTORY: mental status changes Unenhanced CT of the brain was performed. The ventricles, basal cisterns and sulci overlying the cerebral convexities demonstrate mild enlargem ent. There is no evidence for intracranial hemorrhage or sulcal effacement. There is decreased attenuation about the periventricular white matter and deep white matter of both c erebral hemispheres, compatible with chronic small vessel ischemia. Differential diagnosis does inclu de demyelination. No mass effects are seen.No midline shift. Osseous calvarium is intact. If symptoms persist consider MRI. IMPRESSION: 1. Age related atrophic and chronic small vessel ischemic change without acute intracranial process s een at this time.
--- NOTE | 2016-08-19 11:39 | P.PN ---
Subjective Principal diagnosis: Status post CABG postoperative day # 6 80-year-old male patient, complaining of exertional dyspnea over the past several months. The patient denied having any chest pain. 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 The patient was found to have occluded right coronary artery with collaterals filling from the left. The patient was found to have critical disease involving the left main coronary artery and critical disease involving diffuse marginal branch of circumflex and proximal LAD. Based on this, coronary artery bypass surgery was recommended. The patient was seen by cardiothoracic surgery and the tentative plan to undergo surgery on this patient is on Tuesday. The preoperative echocardiogram showed a preserved LV function with an ejection fraction of 50-55%. No evidence of any pulmonary hypertension. No evidence of any valvular abnormalities. There is evidence of hypertensive heart disease with concentric left ventricular hypertrophy. Chest x-ray shows no acute cardio pulmonary process. He has history of pulmonary embolism and DVT and the patient has been maintained on anticoagulation on outpatient basis with warfarin. On today's evaluation of 08/11/2016 the patient is stable. The patient has no specific complaints. The patient is using his incentive spirometer. The patient was found to have chronic thrombocytopenia and for that reason a hematology consultation was obtained. History of any chest pain. He remains on IV heparin. Awaiting surgery on Tuesday. A bedside spirometry is still to be done. On 08/13/2016 I'm seeing this patient following his coronary bypass surgery. The patient underwent the surgery without any major complication. I discussed the case with the thoracic surgeon and the intraoperative course was essentially uncomplicated. The patient currently is intubated on mechanical ventilator. He is still sedated. He is hemodynamically stable. He is on a nitroglycerin and Cleviprex Drip for tight blood pressure control. The patient' s cardiac output is at 6.3 with an index of 2.8. PA pressures 29/17. The patient is also has his chest tubes in place with total amount of output being low at this point despite his underlying thrombocytopenia. He is also on an insulin drip at 40 units an hour for blood sugar control. Chest x-ray shows adequate expansion of both lungs and the chest tubes, ET tube and the Placida-Laya catheter in place. The blood gases showed a pH of 7.31 with a pCO2 of 48 and pO2 of 115 and it was not an FiO2 of 100% and I wean down the FiO2 down to 70% and the saturation is currently above 95%. The patient is also on assist control mode of ventilation with a PEEP of 5 and FiO2 of 70% with a tidal volume of 550. His rate is at 12. Postoperative platelet counts is at 42,000. Hemoglobin is at 10.9. The patient has not required any platelet transfusions. On 08/14/2016 the patient remains intubated on a mechanical ventilator. We failed to wean and extubate this patient yesterday because of oxygenation problems. This morning, the patient remained on assist control mode at the rate of 12, tidal volume 500, FiO2 of 60% and a PEEP of 5. The most recent blood gases showed a pH of 7.44 with a pCO2 of 24 and pO2 of 67. Chest x-ray is showing regular postsurgical changes with a mediastinal and the pleural chest tubes in place, ET tube is in a good location. The patient hemodynamically stable. He remains on a combination of nitroglycerin and Cleviprex drip for blood pressure control. His cardiac output as above 7 and the index is at 3.5. Is producing adequate amount of urine output. He remains sedated with Diprivan which is running at 30 mics. Nitroglycerin drip is running at 5 mics per minute and the Cleviprex is at 60 mg an hour. The patient is also on insulin drip at 10 units an hour. Output from the chest tubes have been 20 mL an hour. Meanwhile the patient had developed an acute kidney injury with a creatinine being up to 1.3. The bicarb level is down to 16 and the patient has a informed of non-anion gap metabolic acidosis. On 08/15/2016, the patient remains intubated. I was unable to wean this patient off the mechanical ventilator for several reasons. First and foremost, the patient was having borderline oxygenation. At the later stage, the patient started acting septic where he started having chills and fever and purulent foul -smelling respiratory secretions were also suctioned from his orotracheal tube. Based on all this, cultures and pain and the patient was started on IV Fortaz. Meanwhile, the patient was given IV fluids, overnight he received a bolus of normal saline 1 L and 2 boluses of albumin 12.5 g which improved his urine output. At this point in time, the patient is postop day #2. He is resting comfortably in bed. He is sedated with Diprivan and is calm and comfortable. He is an assist-control mode of ventilation and the most recent vent settings include an assist-control of 12, tidal volume of 600, FiO2 of 70% and a PEEP of 8. The most recent blood gases showed a pH of 7.47 with a pCO2 of 30 and pO2 of 78. Nevertheless, his pulse ox currently on the monitor is at 99% and FiO2 has been drop down to 60% and we will gradually weaning it down to maintain a saturation above 95%. He is afebrile for now. He still has a right IJ Placida-Laya catheter and hemodynamic parameters show a cardiac output of 6 with an index of 2.7. The patient's white cell count is not elevated at 5.7. He will was stable at 10.6. Renal function is impaired with a creatinine of 1.4. He is off the Catapres drip. He is off the nitroglycerin drip. He is producing around 20-30 mL of urine output on an hourly basis and he has gained significant amount of weight and there is third spacing. Chest x-ray shows increased tone vessel markings. ET tube and NG tube are all in good location. The KARL drain in the left lower extremity is in place and the total amount of output is 10 mL. The 2 mediastinal chest tubes in the left pleural chest tubes are also in place with minimal amount of output. Platelet count is stable at 40 ,000. He insulin drip is on hold for now. On 08/16/2016, patient remains intubated, his gases are very marginal, remains on FiO2 of 70%, PEEP is now up to 12, chest x-ray shows what looks like a right lower lobe pneumonia and consolidation in the medial aspect of the right lower lobe. Patient is on broad-spectrum antibiotics coverage. Ventilator settings were reviewed, she is presently on FiO2 of 70%, PEEP of 12, tidal volume of 550 assist control rate of 14. Labs were reviewed, WBC count is 11.9 hemoglobin is 10.9. ABG showed a pO2 of 61 pCO2 of 36 pH of 7.42. Basic metabolic profile is normal however his BUN is 41 and creatinine is 1.40 baseline creatinine was 1.0 on 08/13. Chest x-ray showed cardiomegaly, worsening by basilar airspace disease especially at the right base and small pleural effusions noted. Patient is receiving Lasix daily. Remains on propofol drip. And fully sedated. On 08/17/2016, patient seems to have made a significant improvement from the pulmonary perspective. I was able to cut down his FiO2 to 45%, PEEP is down to 5, tidal volume is 550, and assist control rate is 14. ABG this morning showed a pO2 of 84 pCO2 of 34 pH of 7.42. However when attempted to wean the patient, he went into atrial fibrillation with RVR, hence I decided to hold back on weaning and placed back on assist control mode of mechanical ventilation. CBC showed a hemoglobin of 10.4 WBC count is 8.3. Basic metabolic profile is normal BUN is 58 creatinine is 1.60. Yesterday, patient was placed on Lovenox at 80 mg subcu every 12 hours, and this is mostly to replace his Coumadin since the patient had previous history of hypercoagulable state and pulmonary embolism , and I felt it would be worthwhile placing him on Lovenox instead of Coumadin for the time being. This was also discussed with the surgeon on the case. Platelets remain about the same today compared to yesterday. Not much of a change but they have always been low. On 08/18/2016, patient remains on mechanical ventilation, sedated, patient failed weaning yesterday because of tachycardia and increased shortness of breath upon initial weaning trial. Today however I plan to discontinue propofol , and give him another weaning trial today. Patient seems to be hemodynamically stable. Heart rate is in the 60s. Vent settings tidal volume of 550 assist control of 14 FiO2 is 45% PEEP is 5. ABG showed a pO2 of 97 pCO2 of 35 pH of 7.46. Chest x-ray showed by basilardisease, and small pleural effusions right more so than left. Sputum has been positive for Serratia marcescens, patient remains on Fortaz. The Serratia marcescens is sensitive to Fortaz. CBC is showing WBC count of 6.2 hemoglobin 9.5. Electrolytes were noted to be normal. BUN is 49 creatinine is 1.42. Patient remains on Lovenox every 12 hours. On 08/19/2016, patient remains on mechanical ventilation, off all sedatives and narcotics, however the patient does not seem to be waking up appropriately as expected. Opens eyes at the most, does not follow any instructions, and this is in spite of holding sedation for the last 24 hours. He did receive 1 dose of Ativan last night for restlessness. At any rate I have recommended a CT of the brain today, and I recommended that we continue to hold all narcotics and sedatives, and this was the patient is awake and follows instructions, we will proceed with rapid weaning and possibly extubation today. However his mental status seems to be the main reason for not extubating the patient. Ventilator settings are basically the same, he remains on tidal volume of 550, assist control of 14, FiO2 of 45% and PEEP is 5. ABG showed a pO2 of 123 pCO2 of 30 and pH of 7.51. WBC count is 4.2 hemoglobin is 9.6. Renal profile is improving , BUN is 44 creatinine is 1.22. Sodium is a bit on the high side 146. Objective - Vital Signs Vital signs: Vital Signs Temp 98.5 F 08/19/16 08:00 Pulse 75 08/19/16 10:00 Resp 23 08/19/16 10:00 BP 119/47 08/19/16 10:00 Pulse Ox 97 08/19/16 10:00 Intake & Output 08/18/16 08/19/16 08/19/16 18:59 06:59 18:59 Intake Total 888.821 0946.042 372 Output Total 895 1090 450 Balance -163.299 -72.958 -78 Weight 118.25 kg 118.25 kg Intake: IV 486 384 312 Sodium Chloride 0.9% 1, 320 330 200 000 ml @ 50 mls/hr IV . Q20H IGOR Rx#:[id number] cefTAZidime 2 gm In 100 100 Sodium Chloride 0.9% 100 ml @ 100 mls/hr IVPB Q12HR IGOR Rx#:[id number] pressure bag 66 54 12 Intake, IV Titration 61.701 69.042 Amount Insulin Regular 100 unit 23.55 69.042 In Sodium Chloride 0.9% 100 ml @ Titrate IV .Q0M PRN Rx#:[id number] Propofol 500 mg In Empty 38.151 Bag 1 bag @ Titrate IV . Q0M PRN Rx#:[id number] Oral 40 Tube Feeding 144 504 60 Other 60 Output: Chest Tube Drainage 0 170 30 Chest Tube Left Lateral 0 170 30 Chest Drainage 130 320 125 Left Calf 130 320 125 Urine 765 450 295 Stool 150 Other: Voiding Method Indwelling Catheter Indwelling Catheter Indwelling Catheter # Voids 1 # Bowel Movements 0 0 ABP, PAP, CO, CI - Last Documented Arterial Blood Pressure 175/54 Pulmonary Artery Pressure 41/23 Cardiac Output 7.4 Cardiac Index 3.3 - Exam The patient is intubated on a mechanical ventilator. He is calm off all narcotics and sedatives.. Orogastric and orotracheal tube in place.Head exam was generally normal. There was no scleral icterus or corneal arcus. Mucous membranes were moist.Neck was supple and without jugular venous distension, thyromegaly, or carotid bruits. Carotids were easily palpable bilaterally. There was no adenopathy. Lung sounds are equal and symmetrical breath sounds without any rhonchi or wheezes or any crackles. Left sided chest tube in place. Heart sounds are regular, positive S1-S2. No cervical murmurs appreciated. Sternum stable clean and intact.Abdominal exam slightly distended and diminished bowel sounds.. The abdomen was soft, non-tender, and without masses, organomegaly, or appreciable enlargement of the abdominal aorta. Extremities show diminished pulses. There is no cyanosis or clubbing. All of the surgical wound sites are dry clean and intact at this point. Neurologically patient seems to be quite sedated, in spite of being off narcotics and sedatives, at the most the patient would open his eyes and close them back again, does not follow any instructions. CT of the brain is pending. - Labs CBC & Chem 7: 08/19/16 04:15 08/19/16 04:15 Labs: Abnormal Lab Results - Last 24 Hours (Table) 08/18/16 08/18/16 08/18/16 Range/Units 12:26 14:18 16:02 RBC (4.30-5.90) m/uL Hgb (13.0-17.5) gm/dL Hct (39.0-53.0) % MCV (80.0-100.0) fL Plt Count (150-450) k/uL Lymphocytes # (1.0-4.8) k/uL ABG pH (7.35-7.45) ABG pCO2 (35-45) mmHg ABG pO2 (83-108) mmHg ABG Total CO2 (19-24) mmol/L ABG O2 Saturation (94-97) % Sodium (137-145) mmol/L Chloride (98-107) mmol/L BUN (9-20) mg/dL Glucose (74-99) mg/dL POC Glucose (mg/dL) 122 H 134 H 135 H (75-99) mg/dL Calcium (8.4-10.2) mg/dL Magnesium (1.6-2.3) mg/dL 08/18/16 08/18/16 08/19/16 Range/Units 18:06 21:05 00:21 RBC (4.30-5.90) m/uL Hgb (13.0-17.5) gm/dL Hct (39.0-53.0) % MCV (80.0-100.0) fL Plt Count (150-450) k/uL Lymphocytes # (1.0-4.8) k/uL ABG pH (7.35-7.45) ABG pCO2 (35-45) mmHg ABG pO2 (83-108) mmHg ABG Total CO2 (19-24) mmol/L ABG O2 Saturation (94-97) % Sodium (137-145) mmol/L Chloride (98-107) mmol/L BUN (9-20) mg/dL Glucose (74-99) mg/dL POC Glucose (mg/dL) 126 H 138 H 163 H (75-99) mg/dL Calcium (8.4-10.2) mg/dL Magnesium (1.6-2.3) mg/dL 08/19/16 08/19/16 08/19/16 Range/Units 01:04 03:17 04:15 RBC 2.94 L (4.30-5.90) m/uL Hgb 9.6 L (13.0-17.5) gm/dL Hct 29.6 L (39.0-53.0) % MCV 100.5 H (80.0-100.0) fL Plt Count 72 L (150-450) k/uL Lymphocytes # 0.4 L (1.0-4.8) k/uL ABG pH (7.35-7.45) ABG pCO2 (35-45) mmHg ABG pO2 (83-108) mmHg ABG Total CO2 (19-24) mmol/L ABG O2 Saturation (94-97) % Sodium (137-145) mmol/L Chloride (98-107) mmol/L BUN (9-20) mg/dL Glucose (74-99) mg/dL POC Glucose (mg/dL) 150 H 126 H (75-99) mg/dL Calcium (8.4-10.2) mg/dL Magnesium (1.6-2.3) mg/dL 08/19/16 08/19/16 08/19/16 Range/Units 04:15 04:18 06:29 RBC (4.30-5.90) m/uL Hgb (13.0-17.5) gm/dL Hct (39.0-53.0) % MCV (80.0-100.0) fL Plt Count (150-450) k/uL Lymphocytes # (1.0-4.8) k/uL ABG pH (7.35-7.45) ABG pCO2 (35-45) mmHg ABG pO2 (83-108) mmHg ABG Total CO2 (19-24) mmol/L ABG O2 Saturation (94-97) % Sodium 146 H (137-145) mmol/L Chloride 114 H (98-107) mmol/L BUN 44 H (9-20) mg/dL Glucose 135 H (74-99) mg/dL POC Glucose (mg/dL) 137 H 129 H (75-99) mg/dL Calcium 7.7 L (8.4-10.2) mg/dL Magnesium 3.0 H (1.6-2.3) mg/dL 08/19/16 08/19/16 Range/Units 08:14 10:02 RBC (4.30-5.90) m/uL Hgb (13.0-17.5) gm/dL Hct (39.0-53.0) % MCV (80.0-100.0) fL Plt Count (150-450) k/uL Lymphocytes # (1.0-4.8) k/uL ABG pH 7.51 H (7.35-7.45) ABG pCO2 30 L (35-45) mmHg ABG pO2 123 H (83-108) mmHg ABG Total CO2 25 H (19-24) mmol/L ABG O2 Saturation 99.1 H (94-97) % Sodium (137-145) mmol/L Chloride (98-107) mmol/L BUN (9-20) mg/dL Glucose (74-99) mg/dL POC Glucose (mg/dL) 149 H (75-99) mg/dL Calcium (8.4-10.2) mg/dL Magnesium (1.6-2.3) mg/dL Assessment and Plan Plan: 1 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 The patient underwent coronary bypass surgery and currently is postop day 6 2 postoperative hypoxemia with difficulties in weaning due to ongoing oxygenation problem. This was felt to be related to air space disease, and possible pneumonia involving the right lower lobe mostly. Could also be acute lung injury related. 2 diabetes mellitus on insulin drip for blood sugar control 3 postoperative hypertension currently off nitroglycerin drip and Cleviprex 4 post thoracotomy respiratory failure, expected, currently the oxygenation remains borderline . Chest x-ray findings are consistent with increased interstitial markings probably related to fluid overload. The patient has adequate cardiac index output for now. Hemodynamically stable. Possibility of acute lung injury is not entirely ruled out. But based on the gases today, there seems to be a significant improvement this was also noted on the chest x- ray today. 5 previous history of DVT and pulmonary embolism , maintained on warfarin outpatient basis, patient will be restarted on Lovenox 80 mg subcu every 12 hours beginning today. In the meantime we'll continue to monitor his low platelets. Patient has chronic thrombocytopenia to begin with. 6 thrombocytopenia him a stable with a platelet count, without evidence of any acute bleeding 7 acute kidney injury, creatinine is down to 1.2 to 8 postoperative respiratory failure, failure to wean which was not expected, mostly secondary to hypoxic respiratory failure secondary to pneumonia, hospital -acquired, sputum is positive for gram-negative bacilli, final report is pending. suspect some component of congestive heart failure, and possible acute lung injury. Possibility of pulmonary embolism is not entirely ruled out , but felt to be less likely. However will empirically continue antibiotics, bronchodilators, and Lovenox subcu. Recommendation: I plan to wean and extubate the patient, however considering his mental status being the main issue at this point, I will arrange for a CT of the brain, continue to hold narcotics and sedatives for now, and assorted the patient shows any improvement in his neurological status, will follow the weaning protocol, and possibly extubate. However the patient would clearly failed weaning and extubation at this point because of his mental status. CT of the brain was ordered, and it is pending at the time of this dictation. Critical care time is 34 minutes. Time with Patient: Greater than 30
[2016-08-19 11:58] LABS: Glucose,Whole Blood 185 mg/dL (75-99)
[2016-08-19] MEDS ORDERED: LIDOCAINE 2% INJ 20 MG/ML SQ ONE (12:06)
--- NOTE | 2016-08-19 12:50 | XR ---
EXAMINATION TYPE: XR chest 1V portable DATE OF EXAM: 08/19/2016 12:20 PM COMPARISON: NONE INDICATION: PICC line placement TECHNIQUE: Single frontal view of the chest is obtained. FINDINGS: The heart size is normal. The pulmonary vasculature is normal. No suspicious consolidations are evident. Endotracheal tube is present with the tip above the nick. Nasogastric tube transverses the thorax t ip in left upper quadrant of the abdomen. Left-sided chest tube has its tip directed towards the left hilum. PICC line is been placed on the right with the tip in the proximal right atrium IMPRESSION: 1. No acute pulmonary process. 2. Multiple lines and catheters. 3. Placement of a PICC line with the tip in the proximal right atrium
--- NOTE | 2016-08-19 13:18 | PN ---
Angel Michele is still intubated. His breath sounds are reduced bilaterally. Heart sounds are soft. His blood pressure is 112/62 mmHg, heart rate is in the 60s and 70s. He has PACs. IMPRESSION: Coronary artery disease, status post coronary artery bypass grafting and still intubated with Serratia pneumonitis being on antibiotics. PLAN: Continue current medications and we will ( ) the dose of amiodarone and beta blockers.
--- NOTE | 2016-08-19 15:02 | IR ---
PICC LINE PLACEMENT: HISTORY: Infection requiring long-term antibiotic therapy PROCEDURE: Ultrasound guidance of PICC line placement. LIQUOR BRIDGE OPERATOR: Dr. Davila. COMPLICATIONS: None ANESTHESIA: 1. 1% Lidocaine locally. FINDINGS/TECHNIQUE: The procedure was explained to the patient. The risks, complications, benefits and alternatives were discussed and any questions were answered. Informed consent was obtained. The patient was placed supine on the fluoroscopic table and prepped and draped in the usual sterile fas ion. Utilizing a 21 gauge needle and sonographic guidance, access in the left basilic vein was achi eved and there is placement of a 0.018 guidewire. The vein is patent. A 5-F. Sheath was placed over the guidewire. The guidewire and dilator were removed and a 5-F. Double lumen PICC line was placed through the sheath with the chest x-ray confirming the tip at the level of the SVC. The sheath was r emoved, the catheter was flushed and sutured into position. The patient was stable throughout the pr ocedure and remained stable upon discharge from the Department of Radiology. The vein puncture was patent under ultrasound. A jasso scale image was obtained to document patency of the vein punctured. All elements of the maximal barrier technique were utilized. IMPRESSION: 1. Successful PICC line placement under ultrasound performed bedside within the ICU.
[2016-08-19 15:15] LABS: Glucose,Whole Blood 148 mg/dL (75-99)
[2016-08-19] MEDS: LACTATED RINGERS 1,000 ML IV SCH (15:16)
[2016-08-19] MEDS: prednisoLONE ACETATE 1% OPHTH DROPS 1 ML BTL LEFT EYE SCH (17:00)
[2016-08-19] MEDS ORDERED: LORazepam 2 MG/ML SYRINGE ONE (17:19)
[2016-08-19 17:26] LABS: Glucose,Whole Blood 123 mg/dL (75-99)
[2016-08-19] MEDS ORDERED: LORazepam 2 MG/ML SYRINGE IV STA (17:29)
[2016-08-19 18:15] LABS: Glucose,Whole Blood 138 mg/dL (75-99)
--- NOTE | 2016-08-19 18:20 | XR ---
EXAMINATION TYPE: XR chest 1V portable DATE OF EXAM: 08/19/2016 6:02 PM COMPARISON: 08/19/2016 HISTORY: Line placement short of breath TECHNIQUE: Single frontal view of the chest is obtained. FINDINGS: There is no heart failure. There is a left chest tube. There is right central venous erlinda ter with the tip probably in the right atrium. Endotracheal tube appears in good position. There are sternal wires. There is no sign of pleural effusion. There is no sign of pneumothorax. Nasogastric tu be is noted. IMPRESSION: No acute lung disease. No heart failure. No change compared to exam earlier today at 12: 00 PM.
[2016-08-19] MEDS: LATANOPROST 0.005% OPHTH DROPS 2.5 ML BTL BOTH EYES SCH (20:14)
[2016-08-19 20:46] LABS: Glucose,Whole Blood 161 mg/dL (75-99)
[2016-08-19 22:27] LABS: Glucose,Whole Blood 159 mg/dL (75-99)
--- NOTE | 2016-08-19 22:37 | PN ---
DATE OF SERVICE: 08/19/2016 PRESENTING COMPLAINT: Status post CABG. INTERVAL HISTORY: This is a patient who is status post CABG x2 and is currently on the ventilator with an FiO2 of 40%, PEEP of 5. Telemetry shows sinus bradycardia, sinus rhythm with PACs. Patient's drips include lactated Ringer's IV, propofol, which is currently on hold, insulin, Fortaz antibiotic. Patient has one left pleural chest tube in place. Patient appears comfortable on the ventilator. Review of systems cannot be done. Patient remains intubated. CURRENT MEDICATIONS: As reviewed above. PHYSICAL EXAMINATION: VITAL SIGNS: Temperature 98.1, pulse 72, respirations 21, blood pressure 143/54, oxygen saturation 96% on FiO2 of 40% on the ventilator. GENERAL APPEARANCE: Patient remains intubated on the ventilator, resting comfortably. Patient is not conversant nor is he sedated any longer. Propofol has been off for more than 24 hours. EYES: Pupils equal. Conjunctivae normal. NECK: JVD unable to assess. Mass not palpable. RESPIRATORY: Effort normal on the ventilator. LUNGS: Diminished breath sounds bilaterally. CARDIOVASCULAR: First and second sounds noted. Heart rhythm regular. Generalized edema. CHEST WALL: Patient has one chest tube. Midline incision covered with a surgical dressing. Heart Hugger in place. ABDOMEN: Soft, nontender. Liver and spleen not palpable. NEUROLOGIC: Pupils equal. Plantars equivocal. INVESTIGATIONS: White blood cell count 4.2, hemoglobin 9.6, platelet count 72. Sodium 146. BUN 44, creatinine 1.22. Chest x-ray shows no acute pulmonary process; PICC line in place. CT of the brain shows age-related atrophic and chronic small vessel ischemic changes. No acute intracranial process. ASSESSMENT: 1. Status post coronary artery bypass graft for triple-vessel coronary artery disease, slow to respond. 2. Coronary artery disease. 3. Diabetes mellitus, type 2, on oral hypoglycemics. 4. Chronic deep vein thrombosis, pulmonary embolism, on Coumadin group home. 5. Hyperlipidemia, controlled. 6. 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 7. Benign prostatic hypertrophy, stable. 8. 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 9. Postoperative ventilator support, slow to wean. 10. Postoperative respiratory failure secondary to pneumonia, hospital-acquired. Sputum cultures positive for Gram-negative bacilli. Organism is Serratia marcescens. PLAN: Today pulmonology/ICU team attempted to wean the patient and ready the patient for extubation. Patient's mental status is the confounding issue. Patient has been off sedation for the previous 24 hours and continues to not wake up. Patient had some mild activity was mildly interactive; however, he received pain medication and Ativan overnight and consequently patient is still unable to participate in the spontaneous breathing trial. Tube feedings will continue. Cardiology continues to follow. Will continue to follow closely. Patient was seen and examined by nurse practitioner Fiorella Kapadia, and all elements of the case were discussed with the attending, Dr. Long.
[2016-08-19] MEDS: ENOXAPARIN 80 MG/0.8 ML SYRINGE SQ SCH (22:49)
[2016-08-20 00:27] LABS: Glucose,Whole Blood 144 mg/dL (75-99)
[2016-08-20] MEDS: INSULIN REGULAR 100 UNIT in SODIUM CHLORIDE 0.9% 100 ML IV PRN ×2 (02:29→23:14)
[2016-08-20 02:30] LABS: Glucose,Whole Blood 141 mg/dL (75-99)
[2016-08-20] MEDS: IPRATROPIUM-ALBUTEROL 3 ML NEB INHALATION SCH ×6 (03:21→23:36)
[2016-08-20 04:52] LABS: Glucose,Whole Blood 143 mg/dL (75-99)
[2016-08-20 05:32] LABS: Glucose,Whole Blood 165 mg/dL (75-99)
[2016-08-20 05:41] LABS: Basophils % (A) 0 %; CH 32.6; CHCM 33.2; Eosinophils # (A) 0.1 k/uL (0-0.7); Eosinophils % (A) 2 %; HCT 29.2 % (39.0-53.0); HGB 9.8 gm/dL (13.0-17.5); Luc # (Auto) 0.12; Luc % (Auto) 2; Lymphocytes # (A) 0.6 k/uL (1.0-4.8); Lymphocytes % (A) 11 %; MCH 33.2 pg (25.0-35.0); MCHC 33.6 g/dL (31.0-37.0); MCV 98.8 fL (80.0-100.0); Mean Platelet Volume 10.8; Monocytes # (A) 0.3 k/uL (0-1.0); Monocytes % (A) 5 %; Neutrophils # (A) 4.3 k/uL (1.3-7.7); Neutrophils % (A) 80 %; RBC 2.95 m/uL (4.30-5.90); RDW 14.6 % (11.5-15.5); WBC 5.4 k/uL (3.8-10.6); WBC (Perox) 5.54
[2016-08-20 05:55] LABS: Chloride 116 mmol/L (98-107); Glucose 163 mg/dL (74-99); Total Protein 4.8 g/dL (6.3-8.2)
[2016-08-20 06:16] LABS: ALT 70 U/L (21-72); AST 125 U/L (17-59); Alkaline Phosphatase 156 U/L (38-126); Anion Gap 8 mmol/L; Blood Urea Nitrogen 42 mg/dL (9-20); Calcium 7.7 mg/dL (8.4-10.2); Carbon Dioxide 24 mmol/L (22-30); Magnesium 2.8 mg/dL (1.6-2.3); Non-African American GFR(MDRD) 58 (>60 ml/min/1.73 sqM); Phosphorous 2.8 mg/dL (2.5-4.5); Sodium 148 mmol/L (137-145); Total Bilirubin 1.5 mg/dL (0.2-1.3)
--- NOTE | 2016-08-20 07:18 | XR ---
EXAMINATION TYPE: XR chest 1V portable DATE OF EXAM: 08/20/2016 6:27 AM Comparison: 08/19/2016 Clinical History: 80-year-old male postop cardiac surgery Findings: ET tube is satisfactory. NG tube courses below the diaphragm. Left pleural drain remains in place. Ri ght PICC tip at the lower SVC level. Heart remains mildly enlarged. Some patchy retrocardiac opacity remains. No significant pleural effus ion or new consolidation. No appreciable pneumothorax. Impression: Borderline heart size and similar patchy retrocardiac opacity, likely postsurgical atelectasis.
[2016-08-20 07:47] LABS: ABG Base Excess 0.3 mmol/L; ABG HCO3 23 mmol/L (21-25); ABG PCO2 29 mmHg (35-45); ABG PH 7.51 (7.35-7.45); ABG PO2 122 mmHg (83-108); ABG TCO2 24 mmol/L (19-24)
[2016-08-20 08:47] LABS: Glucose,Whole Blood 146 mg/dL (75-99)
[2016-08-20] MEDS: ASPIRIN 81 MG CHEW PO SCH (08:48)
[2016-08-20] MEDS: DORZOLAMIDE HCL 2% DROPS 10 ML BTL LEFT EYE SCH (08:48)
[2016-08-20] MEDS: CHLORHEXIDINE GLUCONATE 15 ML CUP MUCOUS MEM SCH ×2 (08:48→20:02)
[2016-08-20] MEDS: AMIODARONE 200 MG TAB PO SCH ×2 (08:48→09:54)
[2016-08-20] MEDS: MUPIROCIN 2% OINT 22 GM TUBE TOPICAL SCH ×2 (08:49→20:02)
[2016-08-20] MEDS: ENOXAPARIN 80 MG/0.8 ML SYRINGE SQ SCH ×2 (08:49→20:02)
[2016-08-20] MEDS: METOPROLOL TARTRATE 25 MG TAB PO SCH ×2 (08:49→20:02)
[2016-08-20] MEDS: PANTOPRAZOLE 40 MG/10 ML VIAL IVP SCH (09:54)
--- NOTE | 2016-08-20 10:32 | P.PN ---
<Juliana Albright - Last Filed: 08/20/16 10:24> Subjective Principal diagnosis: Multivessel coronary artery disease POD #7 coronary artery bypass grafting 2 vessels (left internal mammary artery to left anterior descending artery, saphenous vein graft to obtuse marginal artery). Endoscopic vein harvest left greater saphenous vein. Epi-aortic ultrasound. Transesophageal echocardiogram. Postoperative acute hypoxic respiratory failure requiring mechanical ventilation , failure to wean secondary to Serratia marcescens pneumonia, an unexpected postoperative complication. Patient remains on mechanical ventilation. He has been off sedation for 48 hours except for an occasional dose of Ativan given by pulmonology, he will open his eyes and he did wiggle his toes to command this morning, but he is still sleepy and not moving without provocation. Objective - Vital Signs Vital signs: Vital Signs Temp 98.6 F 08/20/16 08:00 Pulse 70 08/20/16 09:00 Resp 21 08/20/16 09:00 BP 139/60 08/20/16 09:00 Pulse Ox 99 08/20/16 09:00 Intake & Output 08/19/16 08/20/16 08/20/16 18:59 06:59 18:59 Intake Total 553.722 3346.125 83.575 Output Total 1030 840 325 Balance -333.292 600.125 -241.425 Weight 118.25 kg 118.9 kg Intake: IV 483 370 69 0.9 240 60 Sodium Chloride 0.9% 1, 350 000 ml @ 50 mls/hr IV . Q20H [facility] Rx#:[id number] cefTAZidime 2 gm In 100 100 Sodium Chloride 0.9% 100 ml @ 100 mls/hr IVPB Q12HR [facility] Rx#:[id number] pressure bag 33 30 9 Intake, IV Titration 63.708 60.125 14.575 Amount Insulin Regular 100 unit 13.708 60.125 14.575 In Sodium Chloride 0.9% 100 ml @ Titrate IV .Q0M [facility]N Rx#:[id number] Lactated Ringers 1,000 ml 50 @ 10 mls/hr IV .Q24H [facility] Rx#:[id number] Tube Feeding 150 1010 Output: Chest Tube Drainage 70 40 20 Chest Tube Left Lateral 70 40 20 Chest Drainage 125 35 95 Left Calf 125 35 95 Urine 835 765 210 Other: Voiding Method Indwelling Catheter Indwelling Catheter ABP, PAP, CO, CI - Last Documented Arterial Blood Pressure 144/51 Pulmonary Artery Pressure 41/23 Cardiac Output 7.4 Cardiac Index 3.3 - Constitutional General appearance: Present: no acute distress, obese - Respiratory Details: Lungs sounds diminished bilaterally. Respirations even, nonlabored on mechanical ventilation. Current settings FiO2 50%, tidal volume 550, respiratory rate 14, PEEP 8. Left pleural chest tube to -20 cm wall suction, drained 40 mL serous fluid overnight, 170 mL in the last 24 hours. No air leak present. - Cardiovascular Details: S1, S2 present. Regular rate and rhythm, normal sinus rhythm on telemetry. Heart hugger/teds/SCDs in place. A/V epicardial pacemaker wires present, grounded. Bilateral lower extremity edema remains. - Gastrointestinal Gastrointestinal Comment(s): Abdomen soft, nontender, nondistended. Active bowel sounds 4 quadrants. Currently receiving tube feedings at 60 mL per hour through OG tube. - Genitourinary Genitourinary Comment(s): Thornton present draining clear, yellow urine. Approximate 60-100 mL per hour. - Integumentary Integumentary Comment(s): Anterior chest incision well approximated and covered with dry intact dressing. Left lower extremity EVH site well approximated with KARL present. - Neurologic Neurologic Comment(s): Remains on mechanical ventilation, will open eyes and will HARRIS hose to command, upper extremities withdraw to painful stimuli. - Allied health notes Allied health notes reviewed: nursing - Labs CBC & Chem 7: 08/20/16 05:30 08/20/16 05:30 Labs: Abnormal Lab Results - Last 24 Hours (Table) 08/19/16 08/19/16 08/19/16 Range/Units 11:55 15:13 17:22 RBC (4.30-5.90) m/uL Hgb (13.0-17.5) gm/dL Hct (39.0-53.0) % Plt Count (150-450) k/uL Lymphocytes # (1.0-4.8) k/uL ABG pH (7.35-7.45) ABG pCO2 (35-45) mmHg ABG pO2 (83-108) mmHg ABG O2 Saturation (94-97) % Sodium (137-145) mmol/L Chloride (98-107) mmol/L BUN (9-20) mg/dL Glucose (74-99) mg/dL POC Glucose (mg/dL) 185 H 148 H 123 H (75-99) mg/dL Calcium (8.4-10.2) mg/dL Magnesium (1.6-2.3) mg/dL Total Bilirubin (0.2-1.3) mg/dL AST (17-59) U/L Alkaline Phosphatase (38-126) U/L Total Protein (6.3-8.2) g/dL Albumin (3.5-5.0) g/dL 08/19/16 08/19/16 08/19/16 Range/Units 18:13 20:36 22:25 RBC (4.30-5.90) m/uL Hgb (13.0-17.5) gm/dL Hct (39.0-53.0) % Plt Count (150-450) k/uL Lymphocytes # (1.0-4.8) k/uL ABG pH (7.35-7.45) ABG pCO2 (35-45) mmHg ABG pO2 (83-108) mmHg ABG O2 Saturation (94-97) % Sodium (137-145) mmol/L Chloride (98-107) mmol/L BUN (9-20) mg/dL Glucose (74-99) mg/dL POC Glucose (mg/dL) 138 H 161 H 159 H (75-99) mg/dL Calcium (8.4-10.2) mg/dL Magnesium (1.6-2.3) mg/dL Total Bilirubin (0.2-1.3) mg/dL AST (17-59) U/L Alkaline Phosphatase (38-126) U/L Total Protein (6.3-8.2) g/dL Albumin (3.5-5.0) g/dL 08/20/16 08/20/16 08/20/16 Range/Units 00:26 02:28 04:50 RBC (4.30-5.90) m/uL Hgb (13.0-17.5) gm/dL Hct (39.0-53.0) % Plt Count (150-450) k/uL Lymphocytes # (1.0-4.8) k/uL ABG pH (7.35-7.45) ABG pCO2 (35-45) mmHg ABG pO2 (83-108) mmHg ABG O2 Saturation (94-97) % Sodium (137-145) mmol/L Chloride (98-107) mmol/L BUN (9-20) mg/dL Glucose (74-99) mg/dL POC Glucose (mg/dL) 144 H 141 H 143 H (75-99) mg/dL Calcium (8.4-10.2) mg/dL Magnesium (1.6-2.3) mg/dL Total Bilirubin (0.2-1.3) mg/dL AST (17-59) U/L Alkaline Phosphatase (38-126) U/L Total Protein (6.3-8.2) g/dL Albumin (3.5-5.0) g/dL 08/20/16 08/20/16 08/20/16 Range/Units 05:30 05:30 05:30 RBC 2.95 L (4.30-5.90) m/uL Hgb 9.8 L (13.0-17.5) gm/dL Hct 29.2 L (39.0-53.0) % Plt Count 68 L (150-450) k/uL Lymphocytes # 0.6 L (1.0-4.8) k/uL ABG pH (7.35-7.45) ABG pCO2 (35-45) mmHg ABG pO2 (83-108) mmHg ABG O2 Saturation (94-97) % Sodium 148 H (137-145) mmol/L Chloride 116 H (98-107) mmol/L BUN 42 H (9-20) mg/dL Glucose 163 H (74-99) mg/dL POC Glucose (mg/dL) 165 H (75-99) mg/dL Calcium 7.7 L (8.4-10.2) mg/dL Magnesium 2.8 H (1.6-2.3) mg/dL Total Bilirubin 1.5 H (0.2-1.3) mg/dL AST 125 H (17-59) U/L Alkaline Phosphatase 156 H (38-126) U/L Total Protein 4.8 L (6.3-8.2) g/dL Albumin 2.2 L (3.5-5.0) g/dL 08/20/16 08/20/16 Range/Units 07:41 08:46 RBC (4.30-5.90) m/uL Hgb (13.0-17.5) gm/dL Hct (39.0-53.0) % Plt Count (150-450) k/uL Lymphocytes # (1.0-4.8) k/uL ABG pH 7.51 H (7.35-7.45) ABG pCO2 29 L (35-45) mmHg ABG pO2 122 H (83-108) mmHg ABG O2 Saturation 99.0 H (94-97) % Sodium (137-145) mmol/L Chloride (98-107) mmol/L BUN (9-20) mg/dL Glucose (74-99) mg/dL POC Glucose (mg/dL) 146 H (75-99) mg/dL Calcium (8.4-10.2) mg/dL Magnesium (1.6-2.3) mg/dL Total Bilirubin (0.2-1.3) mg/dL AST (17-59) U/L Alkaline Phosphatase (38-126) U/L Total Protein (6.3-8.2) g/dL Albumin (3.5-5.0) g/dL - Imaging and Cardiology Chest x-ray: image reviewed Assessment and Plan (1) Diabetes Status: Acute (2) Hyperlipidemia Status: Acute (3) History of pulmonary embolus (PE) Status: Acute (4) History of deep vein thrombosis Status: Acute (5) Thrombocytopenia Status: Acute (6) Coronary artery disease Status: Acute (7) Postoperative acute respiratory failure Status: Acute (8) Pneumonia due to Serratia marcescens Status: Acute Plan: 1. Will hold statin secondary to elevated liver enzymes. Increase beta abran to 25 mg twice a day. Baby aspirin re-added 2. Continue amiodarone for atrial fibrillation prophylaxis 3. Continue Lovenox secondary to history of DVT. 4. CT of brain demonstrated no acute process. 5. Ventilator management per pulmonology. Wean O2 as tolerated. 6. Continue tube feedings 7. Antibiotics per pulmonary/ID. Sputum culture positive for Serratia marcescens 8. Daily labs, chest x-rays. 9. GI/DVT prophylaxis. 10. More recommendations as patient progresses. Time with Patient: Greater than 30 <Ramin Traore - Last Filed: 08/20/16 17:25> Objective - Vital Signs Vital signs: Vital Signs Temp 98.6 F 08/20/16 16:00 Pulse 70 08/20/16 16:00 Resp 25 H 08/20/16 16:00 BP 152/62 08/20/16 16:00 Pulse Ox 100 08/20/16 16:00 Intake & Output 08/19/16 08/20/16 08/20/16 18:59 06:59 18:59 Intake Total 335.519 7480.125 1020.058 Output Total 1030 840 756 Balance -333.292 600.125 264.058 Weight 118.25 kg 118.9 kg 118.9 kg Intake: IV 483 370 310 0.9 240 20 Lactated Ringers 1,000 ml 160 @ 20 mls/hr IV .Q24H [facility] Rx#:[id number] Sodium Chloride 0.9% 1, 350 000 ml @ 50 mls/hr IV . Q20H [facility] Rx#:[id number] cefTAZidime 2 gm In 100 100 100 Sodium Chloride 0.9% 100 ml @ 100 mls/hr IVPB Q12HR [facility] Rx#:[id number] pressure bag 33 30 30 Intake, IV Titration 63.708 60.125 50.058 Amount Insulin Regular 100 unit 13.708 60.125 50.058 In Sodium Chloride 0.9% 100 ml @ Titrate IV .Q0M PRN Rx#:[id number] Lactated Ringers 1,000 ml 50 @ 10 mls/hr IV .Q24H [facility] Rx#:[id number] Tube Feeding 150 1010 600 Other 60 Output: Chest Tube Drainage 70 40 40 Chest Tube Left Lateral 70 40 40 Chest Drainage 125 35 125 Left Calf 125 35 125 Urine 835 765 590 Stool 1 Other: Voiding Method Indwelling Catheter Indwelling Catheter Indwelling Catheter # Bowel Movements 1 ABP, PAP, CO, CI - Last Documented Arterial Blood Pressure 144/51 Pulmonary Artery Pressure 41/23 Cardiac Output 7.4 Cardiac Index 3.3 - Labs CBC & Chem 7: 08/20/16 05:30 08/20/16 05:30 Labs: Abnormal Lab Results - Last 24 Hours (Table) 08/19/16 08/19/16 08/19/16 Range/Units 17:22 18:13 20:36 RBC (4.30-5.90) m/uL Hgb (13.0-17.5) gm/dL Hct (39.0-53.0) % Plt Count (150-450) k/uL Lymphocytes # (1.0-4.8) k/uL ABG pH (7.35-7.45) ABG pCO2 (35-45) mmHg ABG pO2 (83-108) mmHg ABG O2 Saturation (94-97) % Sodium (137-145) mmol/L Chloride (98-107) mmol/L BUN (9-20) mg/dL Glucose (74-99) mg/dL POC Glucose (mg/dL) 123 H 138 H 161 H (75-99) mg/dL Calcium (8.4-10.2) mg/dL Magnesium (1.6-2.3) mg/dL Total Bilirubin (0.2-1.3) mg/dL AST (17-59) U/L Alkaline Phosphatase (38-126) U/L Total Protein (6.3-8.2) g/dL Albumin (3.5-5.0) g/dL 08/19/16 08/20/16 08/20/16 Range/Units 22:25 00:26 02:28 RBC (4.30-5.90) m/uL Hgb (13.0-17.5) gm/dL Hct (39.0-53.0) % Plt Count (150-450) k/uL Lymphocytes # (1.0-4.8) k/uL ABG pH (7.35-7.45) ABG pCO2 (35-45) mmHg ABG pO2 (83-108) mmHg ABG O2 Saturation (94-97) % Sodium (137-145) mmol/L Chloride (98-107) mmol/L BUN (9-20) mg/dL Glucose (74-99) mg/dL POC Glucose (mg/dL) 159 H 144 H 141 H (75-99) mg/dL Calcium (8.4-10.2) mg/dL Magnesium (1.6-2.3) mg/dL Total Bilirubin (0.2-1.3) mg/dL AST (17-59) U/L Alkaline Phosphatase (38-126) U/L Total Protein (6.3-8.2) g/dL Albumin (3.5-5.0) g/dL 08/20/16 08/20/16 08/20/16 Range/Units 04:50 05:30 05:30 RBC 2.95 L (4.30-5.90) m/uL Hgb 9.8 L (13.0-17.5) gm/dL Hct 29.2 L (39.0-53.0) % Plt Count 68 L (150-450) k/uL Lymphocytes # 0.6 L (1.0-4.8) k/uL ABG pH (7.35-7.45) ABG pCO2 (35-45) mmHg ABG pO2 (83-108) mmHg ABG O2 Saturation (94-97) % Sodium 148 H (137-145) mmol/L Chloride 116 H (98-107) mmol/L BUN 42 H (9-20) mg/dL Glucose 163 H (74-99) mg/dL POC Glucose (mg/dL) 143 H (75-99) mg/dL Calcium 7.7 L (8.4-10.2) mg/dL Magnesium 2.8 H (1.6-2.3) mg/dL Total Bilirubin 1.5 H (0.2-1.3) mg/dL AST 125 H (17-59) U/L Alkaline Phosphatase 156 H (38-126) U/L Total Protein 4.8 L (6.3-8.2) g/dL Albumin 2.2 L (3.5-5.0) g/dL 08/20/16 08/20/16 08/20/16 Range/Units 05:30 07:41 08:46 RBC (4.30-5.90) m/uL Hgb (13.0-17.5) gm/dL Hct (39.0-53.0) % Plt Count (150-450) k/uL Lymphocytes # (1.0-4.8) k/uL ABG pH 7.51 H (7.35-7.45) ABG pCO2 29 L (35-45) mmHg ABG pO2 122 H (83-108) mmHg ABG O2 Saturation 99.0 H (94-97) % Sodium (137-145) mmol/L Chloride (98-107) mmol/L BUN (9-20) mg/dL Glucose (74-99) mg/dL POC Glucose (mg/dL) 165 H 146 H (75-99) mg/dL Calcium (8.4-10.2) mg/dL Magnesium (1.6-2.3) mg/dL Total Bilirubin (0.2-1.3) mg/dL AST (17-59) U/L Alkaline Phosphatase (38-126) U/L Total Protein (6.3-8.2) g/dL Albumin (3.5-5.0) g/dL 08/20/16 08/20/16 08/20/16 Range/Units 10:37 12:24 14:23 RBC (4.30-5.90) m/uL Hgb (13.0-17.5) gm/dL Hct (39.0-53.0) % Plt Count (150-450) k/uL Lymphocytes # (1.0-4.8) k/uL ABG pH (7.35-7.45) ABG pCO2 (35-45) mmHg ABG pO2 (83-108) mmHg ABG O2 Saturation (94-97) % Sodium (137-145) mmol/L Chloride (98-107) mmol/L BUN (9-20) mg/dL Glucose (74-99) mg/dL POC Glucose (mg/dL) 155 H 164 H 147 H (75-99) mg/dL Calcium (8.4-10.2) mg/dL Magnesium (1.6-2.3) mg/dL Total Bilirubin (0.2-1.3) mg/dL AST (17-59) U/L Alkaline Phosphatase (38-126) U/L Total Protein (6.3-8.2) g/dL Albumin (3.5-5.0) g/dL 08/20/16 Range/Units 16:08 RBC (4.30-5.90) m/uL Hgb (13.0-17.5) gm/dL Hct (39.0-53.0) % Plt Count (150-450) k/uL Lymphocytes # (1.0-4.8) k/uL ABG pH (7.35-7.45) ABG pCO2 (35-45) mmHg ABG pO2 (83-108) mmHg ABG O2 Saturation (94-97) % Sodium (137-145) mmol/L Chloride (98-107) mmol/L BUN (9-20) mg/dL Glucose (74-99) mg/dL POC Glucose (mg/dL) 133 H (75-99) mg/dL Calcium (8.4-10.2) mg/dL Magnesium (1.6-2.3) mg/dL Total Bilirubin (0.2-1.3) mg/dL AST (17-59) U/L Alkaline Phosphatase (38-126) U/L Total Protein (6.3-8.2) g/dL Albumin (3.5-5.0) g/dL Assessment and Plan (1) Coronary artery disease Status: Acute Plan: The patient was seen and examined. I agree with the above assessment and plan. Overall he has been stable overnight. He is in sinus rhythm this afternoon. He is tolerating his tube feeds. He is currently on 50% and 5 of PEEP. He is still quite groggy. He does open his eyes and follows some simple commands but he is not yet awake enough or strong enough to be extubated. His platelet count is stable and he is tolerating a baby aspirin. He remains on antibiotics as directed by infectious disease. He is also on anticoagulation secondary to history of DVT.
[2016-08-20 10:38] LABS: Glucose,Whole Blood 155 mg/dL (75-99)
--- NOTE | 2016-08-20 11:23 | P.PN ---
Subjective Principal diagnosis: Status post CABG postoperative day # 7 80-year-old male patient, complaining of exertional dyspnea over the past several months. The patient denied having any chest pain. 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 The patient was found to have occluded right coronary artery with collaterals filling from the left. The patient was found to have critical disease involving the left main coronary artery and critical disease involving diffuse marginal branch of circumflex and proximal LAD. Based on this, coronary artery bypass surgery was recommended. The patient was seen by cardiothoracic surgery and the tentative plan to undergo surgery on this patient is on Tuesday. The preoperative echocardiogram showed a preserved LV function with an ejection fraction of 50-55%. No evidence of any pulmonary hypertension. No evidence of any valvular abnormalities. There is evidence of hypertensive heart disease with concentric left ventricular hypertrophy. Chest x-ray shows no acute cardio pulmonary process. He has history of pulmonary embolism and DVT and the patient has been maintained on anticoagulation on outpatient basis with warfarin. On today's evaluation of 08/11/2016 the patient is stable. The patient has no specific complaints. The patient is using his incentive spirometer. The patient was found to have chronic thrombocytopenia and for that reason a hematology consultation was obtained. History of any chest pain. He remains on IV heparin. Awaiting surgery on Tuesday. A bedside spirometry is still to be done. On 08/13/2016 I'm seeing this patient following his coronary bypass surgery. The patient underwent the surgery without any major complication. I discussed the case with the thoracic surgeon and the intraoperative course was essentially uncomplicated. The patient currently is intubated on mechanical ventilator. He is still sedated. He is hemodynamically stable. He is on a nitroglycerin and Cleviprex Drip for tight blood pressure control. The patient' s cardiac output is at 6.3 with an index of 2.8. PA pressures 29/17. The patient is also has his chest tubes in place with total amount of output being low at this point despite his underlying thrombocytopenia. He is also on an insulin drip at 40 units an hour for blood sugar control. Chest x-ray shows adequate expansion of both lungs and the chest tubes, ET tube and the [place] catheter in place. The blood gases showed a pH of 7.31 with a pCO2 of 48 and pO2 of 115 and it was not an FiO2 of 100% and I wean down the FiO2 down to 70% and the saturation is currently above 95%. The patient is also on assist control mode of ventilation with a PEEP of 5 and FiO2 of 70% with a tidal volume of 550. His rate is at 12. Postoperative platelet counts is at 42,000. Hemoglobin is at 10.9. The patient has not required any platelet transfusions. On 08/14/2016 the patient remains intubated on a mechanical ventilator. We failed to wean and extubate this patient yesterday because of oxygenation problems. This morning, the patient remained on assist control mode at the rate of 12, tidal volume 500, FiO2 of 60% and a PEEP of 5. The most recent blood gases showed a pH of 7.44 with a pCO2 of 24 and pO2 of 67. Chest x-ray is showing regular postsurgical changes with a mediastinal and the pleural chest tubes in place, ET tube is in a good location. The patient hemodynamically stable. He remains on a combination of nitroglycerin and Cleviprex drip for blood pressure control. His cardiac output as above 7 and the index is at 3.5. Is producing adequate amount of urine output. He remains sedated with Diprivan which is running at 30 mics. Nitroglycerin drip is running at 5 mics per minute and the Cleviprex is at 60 mg an hour. The patient is also on insulin drip at 10 units an hour. Output from the chest tubes have been 20 mL an hour. Meanwhile the patient had developed an acute kidney injury with a creatinine being up to 1.3. The bicarb level is down to 16 and the patient has a informed of non-anion gap metabolic acidosis. On 08/15/2016, the patient remains intubated. I was unable to wean this patient off the mechanical ventilator for several reasons. First and foremost, the patient was having borderline oxygenation. At the later stage, the patient started acting septic where he started having chills and fever and purulent foul -smelling respiratory secretions were also suctioned from his orotracheal tube. Based on all this, cultures and pain and the patient was started on IV Fortaz. Meanwhile, the patient was given IV fluids, overnight he received a bolus of normal saline 1 L and 2 boluses of albumin 12.5 g which improved his urine output. At this point in time, the patient is postop day #2. He is resting comfortably in bed. He is sedated with Diprivan and is calm and comfortable. He is an assist-control mode of ventilation and the most recent vent settings include an assist-control of 12, tidal volume of 600, FiO2 of 70% and a PEEP of 8. The most recent blood gases showed a pH of 7.47 with a pCO2 of 30 and pO2 of 78. Nevertheless, his pulse ox currently on the monitor is at 99% and FiO2 has been drop down to 60% and we will gradually weaning it down to maintain a saturation above 95%. He is afebrile for now. He still has a right IJ [place] catheter and hemodynamic parameters show a cardiac output of 6 with an index of 2.7. The patient's white cell count is not elevated at 5.7. He will was stable at 10.6. Renal function is impaired with a creatinine of 1.4. He is off the Catapres drip. He is off the nitroglycerin drip. He is producing around 20-30 mL of urine output on an hourly basis and he has gained significant amount of weight and there is third spacing. Chest x-ray shows increased tone vessel markings. ET tube and NG tube are all in good location. The KARL drain in the left lower extremity is in place and the total amount of output is 10 mL. The 2 mediastinal chest tubes in the left pleural chest tubes are also in place with minimal amount of output. Platelet count is stable at 40 ,000. He insulin drip is on hold for now. On 08/16/2016, patient remains intubated, his gases are very marginal, remains on FiO2 of 70%, PEEP is now up to 12, chest x-ray shows what looks like a right lower lobe pneumonia and consolidation in the medial aspect of the right lower lobe. Patient is on broad-spectrum antibiotics coverage. Ventilator settings were reviewed, she is presently on FiO2 of 70%, PEEP of 12, tidal volume of 550 assist control rate of 14. Labs were reviewed, WBC count is 11.9 hemoglobin is 10.9. ABG showed a pO2 of 61 pCO2 of 36 pH of 7.42. Basic metabolic profile is normal however his BUN is 41 and creatinine is 1.40 baseline creatinine was 1.0 on 08/13. Chest x-ray showed cardiomegaly, worsening by basilar airspace disease especially at the right base and small pleural effusions noted. Patient is receiving Lasix daily. Remains on propofol drip. And fully sedated. On 08/17/2016, patient seems to have made a significant improvement from the pulmonary perspective. I was able to cut down his FiO2 to 45%, PEEP is down to 5, tidal volume is 550, and assist control rate is 14. ABG this morning showed a pO2 of 84 pCO2 of 34 pH of 7.42. However when attempted to wean the patient, he went into atrial fibrillation with RVR, hence I decided to hold back on weaning and placed back on assist control mode of mechanical ventilation. CBC showed a hemoglobin of 10.4 WBC count is 8.3. Basic metabolic profile is normal BUN is 58 creatinine is 1.60. Yesterday, patient was placed on Lovenox at 80 mg subcu every 12 hours, and this is mostly to replace his Coumadin since the patient had previous history of hypercoagulable state and pulmonary embolism , and I felt it would be worthwhile placing him on Lovenox instead of Coumadin for the time being. This was also discussed with the surgeon on the case. Platelets remain about the same today compared to yesterday. Not much of a change but they have always been low. On 08/18/2016, patient remains on mechanical ventilation, sedated, patient failed weaning yesterday because of tachycardia and increased shortness of breath upon initial weaning trial. Today however I plan to discontinue propofol , and give him another weaning trial today. Patient seems to be hemodynamically stable. Heart rate is in the 60s. Vent settings tidal volume of 550 assist control of 14 FiO2 is 45% PEEP is 5. ABG showed a pO2 of 97 pCO2 of 35 pH of 7.46. Chest x-ray showed by basilardisease, and small pleural effusions right more so than left. Sputum has been positive for Serratia marcescens, patient remains on Fortaz. The Serratia marcescens is sensitive to Fortaz. CBC is showing WBC count of 6.2 hemoglobin 9.5. Electrolytes were noted to be normal. BUN is 49 creatinine is 1.42. Patient remains on Lovenox every 12 hours. On 08/19/2016, patient remains on mechanical ventilation, off all sedatives and narcotics, however the patient does not seem to be waking up appropriately as expected. Opens eyes at the most, does not follow any instructions, and this is in spite of holding sedation for the last 24 hours. He did receive 1 dose of Ativan last night for restlessness. At any rate I have recommended a CT of the brain today, and I recommended that we continue to hold all narcotics and sedatives, and this was the patient is awake and follows instructions, we will proceed with rapid weaning and possibly extubation today. However his mental status seems to be the main reason for not extubating the patient. Ventilator settings are basically the same, he remains on tidal volume of 550, assist control of 14, FiO2 of 45% and PEEP is 5. ABG showed a pO2 of 123 pCO2 of 30 and pH of 7.51. WBC count is 4.2 hemoglobin is 9.6. Renal profile is improving , BUN is 44 creatinine is 1.22. Sodium is a bit on the high side 146. On 08/20/2016, patient remains off sedation, he did receive 1 mg of Ativan last night for extreme tachypnea with respiratory rate going as high as 40. However patient settled down easily with Ativan, and follow-up ABG and chest x-ray this morning are showing definite improvement overall. Patient remains on mechanical ventilation. Ventilator settings are about the same, and I was able to cut down the PEEP from 8-5. Remains on 50% FiO2. Assist control rate is 12 and tidal volume is 550. ABG showed a pO2 of 122 pCO2 of 29 pH of 7.50. Electrolytes continued to show hypernatremia and BUN of 42 creatinine of 1.20, patient is receiving free water via nasogastric tube to correct his hypernatremia. Mentation serrano, patient seems to be a bit more awake today compared to the previous days. At least he is opening his eyes upon verbal stimulation, he is following simple instructions like wiggling toes, squeezing hands, and sticking tongue upon request. Seems to be very appropriate. But remained generally weak. And falls asleep easily if left alone. Objective - Vital Signs Vital signs: Vital Signs Temp 98.6 F 08/20/16 08:00 Pulse 63 08/20/16 11:10 Resp 25 H 08/20/16 11:00 BP 98/50 08/20/16 11:00 Pulse Ox 99 08/20/16 11:00 Intake & Output 08/19/16 08/20/16 08/20/16 18:59 06:59 18:59 Intake Total 041.726 1058.125 269.575 Output Total 1030 840 485 Balance -333.292 600.125 -215.425 Weight 118.25 kg 118.9 kg 118.9 kg Intake: IV 483 370 195 0.9 240 80 Sodium Chloride 0.9% 1, 350 000 ml @ 50 mls/hr IV . Q20H [facility] Rx#:[id number] cefTAZidime 2 gm In 100 100 100 Sodium Chloride 0.9% 100 ml @ 100 mls/hr IVPB Q12HR [facility] Rx#:[id number] pressure bag 33 30 15 Intake, IV Titration 63.708 60.125 14.575 Amount Insulin Regular 100 unit 13.708 60.125 14.575 In Sodium Chloride 0.9% 100 ml @ Titrate IV .Q0M PRN Rx#:[id number] Lactated Ringers 1,000 ml 50 @ 10 mls/hr IV .Q24H [facility] Rx#:[id number] Tube Feeding 150 1010 60 Output: Chest Tube Drainage 70 40 30 Chest Tube Left Lateral 70 40 30 Chest Drainage 125 35 135 Left Calf 125 35 135 Urine 835 765 320 Other: Voiding Method Indwelling Catheter Indwelling Catheter Indwelling Catheter ABP, PAP, CO, CI - Last Documented Arterial Blood Pressure 144/51 Pulmonary Artery Pressure 41/23 Cardiac Output 7.4 Cardiac Index 3.3 - Exam Physical Exam: Revealed an 80-year-old white male on mechanical ventilation, in no form of respiratory distress. Endotracheal tube and orogastric tube are intact. HEENT:[Neck is supple.] [No neck masses.] [No thyromegaly.] [No JVD.] Chest: [Diminished breath sounds at the bases, no crackles, no rhonchi, no wheezes.] Cardiac Exam: [Normal S1 and S2, no S3 gallop, no murmur.] Abdomen: [Soft, nontender, no megaly, no rebound, no guarding, normal bowel sounds.] Extremities: [No clubbing, 1+ bipedal edema, no cyanosis.] Neurological Exam: Patient is definitely more arousable today, opens eyes, follows simple instructions, remained generally weak, and tends to fall asleep easily when left alone. - Labs CBC & Chem 7: 08/20/16 05:30 08/20/16 05:30 Labs: Abnormal Lab Results - Last 24 Hours (Table) 08/19/16 08/19/16 08/19/16 Range/Units 11:55 15:13 17:22 RBC (4.30-5.90) m/uL Hgb (13.0-17.5) gm/dL Hct (39.0-53.0) % Plt Count (150-450) k/uL Lymphocytes # (1.0-4.8) k/uL ABG pH (7.35-7.45) ABG pCO2 (35-45) mmHg ABG pO2 (83-108) mmHg ABG O2 Saturation (94-97) % Sodium (137-145) mmol/L Chloride (98-107) mmol/L BUN (9-20) mg/dL Glucose (74-99) mg/dL POC Glucose (mg/dL) 185 H 148 H 123 H (75-99) mg/dL Calcium (8.4-10.2) mg/dL Magnesium (1.6-2.3) mg/dL Total Bilirubin (0.2-1.3) mg/dL AST (17-59) U/L Alkaline Phosphatase (38-126) U/L Total Protein (6.3-8.2) g/dL Albumin (3.5-5.0) g/dL 08/19/16 08/19/16 08/19/16 Range/Units 18:13 20:36 22:25 RBC (4.30-5.90) m/uL Hgb (13.0-17.5) gm/dL Hct (39.0-53.0) % Plt Count (150-450) k/uL Lymphocytes # (1.0-4.8) k/uL ABG pH (7.35-7.45) ABG pCO2 (35-45) mmHg ABG pO2 (83-108) mmHg ABG O2 Saturation (94-97) % Sodium (137-145) mmol/L Chloride (98-107) mmol/L BUN (9-20) mg/dL Glucose (74-99) mg/dL POC Glucose (mg/dL) 138 H 161 H 159 H (75-99) mg/dL Calcium (8.4-10.2) mg/dL Magnesium (1.6-2.3) mg/dL Total Bilirubin (0.2-1.3) mg/dL AST (17-59) U/L Alkaline Phosphatase (38-126) U/L Total Protein (6.3-8.2) g/dL Albumin (3.5-5.0) g/dL 08/20/16 08/20/16 08/20/16 Range/Units 00: 02:28 04:50 RBC (4.30-5.90) m/uL Hgb (13.0-17.5) gm/dL Hct (39.0-53.0) % Plt Count (150-450) k/uL Lymphocytes # (1.0-4.8) k/uL ABG pH (7.35-7.45) ABG pCO2 (35-45) mmHg ABG pO2 (83-108) mmHg ABG O2 Saturation (94-97) % Sodium (137-145) mmol/L Chloride (98-107) mmol/L BUN (9-20) mg/dL Glucose (74-99) mg/dL POC Glucose (mg/dL) 144 H 141 H 143 H (75-99) mg/dL Calcium (8.4-10.2) mg/dL Magnesium (1.6-2.3) mg/dL Total Bilirubin (0.2-1.3) mg/dL AST (17-59) U/L Alkaline Phosphatase (38-126) U/L Total Protein (6.3-8.2) g/dL Albumin (3.5-5.0) g/dL 08/20/16 08/20/16 08/20/16 Range/Units 05:30 05:30 05:30 RBC 2.95 L (4.30-5.90) m/uL Hgb 9.8 L (13.0-17.5) gm/dL Hct 29.2 L (39.0-53.0) % Plt Count 68 L (150-450) k/uL Lymphocytes # 0.6 L (1.0-4.8) k/uL ABG pH (7.35-7.45) ABG pCO2 (35-45) mmHg ABG pO2 (83-108) mmHg ABG O2 Saturation (94-97) % Sodium 148 H (137-145) mmol/L Chloride 116 H (98-107) mmol/L BUN 42 H (9-20) mg/dL Glucose 163 H (74-99) mg/dL POC Glucose (mg/dL) 165 H (75-99) mg/dL Calcium 7.7 L (8.4-10.2) mg/dL Magnesium 2.8 H (1.6-2.3) mg/dL Total Bilirubin 1.5 H (0.2-1.3) mg/dL AST 125 H (17-59) U/L Alkaline Phosphatase 156 H (38-126) U/L Total Protein 4.8 L (6.3-8.2) g/dL Albumin 2.2 L (3.5-5.0) g/dL 08/20/16 08/20/16 08/20/16 Range/Units 07:41 08:46 10:37 RBC (4.30-5.90) m/uL Hgb (13.0-17.5) gm/dL Hct (39.0-53.0) % Plt Count (150-450) k/uL Lymphocytes # (1.0-4.8) k/uL ABG pH 7.51 H (7.35-7.45) ABG pCO2 29 L (35-45) mmHg ABG pO2 122 H (83-108) mmHg ABG O2 Saturation 99.0 H (94-97) % Sodium (137-145) mmol/L Chloride (98-107) mmol/L BUN (9-20) mg/dL Glucose (74-99) mg/dL POC Glucose (mg/dL) 146 H 155 H (75-99) mg/dL Calcium (8.4-10.2) mg/dL Magnesium (1.6-2.3) mg/dL Total Bilirubin (0.2-1.3) mg/dL AST (17-59) U/L Alkaline Phosphatase (38-126) U/L Total Protein (6.3-8.2) g/dL Albumin (3.5-5.0) g/dL Assessment and Plan Plan: 1 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 The patient underwent coronary bypass surgery and currently is postop day 7 2 postoperative hypoxemia with difficulties in weaning due to ongoing oxygenation problem. This was felt to be related to air space disease, and possible pneumonia involving the right lower lobe mostly. Could also be acute lung injury related. 2 diabetes mellitus on insulin drip for blood sugar control 3 postoperative hypertension currently off nitroglycerin drip and Cleviprex 4 post thoracotomy respiratory failure, expected, currently the oxygenation remains borderline . Chest x-ray findings are consistent with increased interstitial markings probably related to fluid overload. The patient has adequate cardiac index output for now. Hemodynamically stable. Possibility of acute lung injury is not entirely ruled out. But based on the gases today, there seems to be a significant improvement this was also noted on the chest x- ray today. 5 previous history of DVT and pulmonary embolism , maintained on warfarin outpatient basis, patient will be restarted on Lovenox 80 mg subcu every 12 hours beginning today. In the meantime we'll continue to monitor his low platelets. Patient has chronic thrombocytopenia to begin with. 6 thrombocytopenia him a stable with a platelet count, without evidence of any acute bleeding 7 acute kidney injury, creatinine is down to 1.2 , hyponatremia being corrected with fluid boluses via nasogastric tube. 8 postoperative respiratory failure, failure to wean which was not expected, mostly secondary to hypoxic respiratory failure secondary to pneumonia, hospital -acquired, sputum is positive for Serratia marcescens. suspect some component of congestive heart failure, and possible acute lung injury. Possibility of pulmonary embolism is not entirely ruled out, but felt to be less likely. However will empirically continue antibiotics, bronchodilators, and Lovenox subcu. Recommendation: I plan to wean and extubate the patient, however considering his mental status being the main issue at this point, patient seems to be doing a bit better from the neurological perspective today compared to the last few days, we'll continue to hold sedation and narcotics, we'll address weaning and extubation as soon as the patient is wake and off and seems to be a bit stronger. At this point my fear is if extubated, the patient cannot protect his airways considering his overall mental status. We'll continue to follow. Critical care time is 34 minutes. Time with Patient: Greater than 30
[2016-08-20 12:25] LABS: Glucose,Whole Blood 164 mg/dL (75-99)
[2016-08-20] MEDS: LACTATED RINGERS 1,000 ML IV SCH (12:26)
[2016-08-20 14:18] LABS: Ionized Calcium 4.9 mg/dL (4.5-5.3)
--- NOTE | 2016-08-20 14:21 | PN ---
Mr. Michele is still intubated. His heart rate is in the 60s. His blood pressure is 121/60 mmHg, respirations are increased, he is febrile, 100.7 degrees Fahrenheit. IMPRESSION: Coronary artery disease, status post coronary artery bypass grafting with chronic respiratory failure, unable to wean at this time, on IV antibiotics. Continue cardiac medications, continue ICU care for now.
[2016-08-20 14:26] LABS: Glucose,Whole Blood 147 mg/dL (75-99)
[2016-08-20 14:41] LABS: Mis test requested (Blood) Ionized Calcium
[2016-08-20 16:09] LABS: Glucose,Whole Blood 133 mg/dL (75-99)
[2016-08-20 18:17] LABS: Glucose,Whole Blood 189 mg/dL (75-99)
--- NOTE | 2016-08-20 18:24 | PN ---
DATE OF SERVICE: 08/19/2016 ATTENDING NOTE: This patient examined by me on 08/19/2016. I reviewed the note of my nurse practitioner, Ms. Kapadia. Patient remains on the ventilator. Drips include IV propofol which was held this morning. Antibiotics are in place. Trach secretions still present. Tube feeding is in place. On examination: Started to respond less. LUNGS: Decreased breath sounds. CARDIOVASCULAR: First and second sounds normal. ASSESSMENT: 1. Status post coronary artery bypass. 2. Acute metabolic encephalopathy. Patient is slow to come out of sedation. Follow up closely. Patient also being treated for pneumonia. Growing Serratia marcescens. Continue antibiotics.
[2016-08-20 19:59] LABS: Glucose,Whole Blood 165 mg/dL (75-99)
[2016-08-20] MEDS: LATANOPROST 0.005% OPHTH DROPS 2.5 ML BTL BOTH EYES SCH (20:02)
[2016-08-20 21:53] LABS: Glucose,Whole Blood 172 mg/dL (75-99)
--- NOTE | 2016-08-20 21:59 | PN ---
DATE OF SERVICE: 08/20/2016 PRESENTING COMPLAINT: Status post CABG. INTERVAL HISTORY: This is a patient who is status post CABG x2 and is currently on the ventilator with an FiO2 of 45%, PEEP of 5. Telemetry shows sinus bradycardia. Patient's drips include lactated Ringer's IV, insulin drip. Fortaz antibiotic for serratia organism. Patient has one left pleural chest tube in place. Patient appears comfortable on the ventilator. However, patient after nearly 48 hours of propofol being held, patient still has not awoken. Review of systems cannot be done. Patient remains intubated. Current medications as reviewed above. PHYSICAL EXAMINATION: VITAL SIGNS: Temperature 98.6, pulse 70, respirations 25, blood pressure 152/62, oxygen saturation 100% on the ventilator at FiO2 of 45%. GENERAL APPEARANCE: Patient remains intubated on the ventilator, resting comfortably. Patient is not conversant, nor is he sedated any longer. Propofol has been off for nearly 48 hours. EYES: Pupils equal. Conjunctivae normal. NECK: JVD unable to assess. Mass not palpable. RESPIRATORY: Effort normal on the ventilator. LUNGS: Diminished breath sounds bilaterally. CARDIOVASCULAR: First and second sounds noted. Heart rhythm regular. Generalized edema. CHEST WALL: Patient has one chest tube. Midline incision covered with surgical dressing. Heart Hugger in place. ABDOMEN: Soft, nontender. Liver and spleen not palpable. NEUROLOGIC: Pupils equal. Plantars equivocal. INVESTIGATIONS: White blood cell count 5.4, hemoglobin 9.8, platelet count 68. Sodium 148. BUN 42, creatinine 1.2. Chest x-ray reveals borderline heart size and similar patchy retrocardiac opacity, likely post-surgical atelectasis. ASSESSMENT: 1. Status post coronary artery bypass grafting for triple-vessel coronary artery disease, slow to respond. 2. Coronary artery disease. 3. Diabetes mellitus, type 2, on oral hypoglycemics. 4. Chronic deep vein thrombosis, pulmonary embolism, on Coumadin custodial. 5. Hyperlipidemia, controlled. 6. 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 7. Benign prosthetic hypertrophy, stable. 8. 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 9. Postoperative ventilator support, slow to wean. 10. Postoperative respiratory failure secondary to pneumonia, hospital-acquired. Sputum cultures positive for Gram-negative bacilli. Organism is Serratia marcescens. PLAN: ICU team would like to attempt to wean the patient. However, patient has not been on sedation for the past nearly 48 hours and patient still barely wakes up. Patient's mental status continues to be the confounding issue. Patient has had some mild interaction; when you call his name he will open his eyes; however, he does not wake up enough to be participatory in a spontaneous breathing trial. Tube feedings are at goal and will continue. Cardiology continues to follow. Will monitor closely. Patient was seen and examined by nurse practitioner Fiorella Kapadia, and all elements of the case were discussed with attending, Dr. Long.
[2016-08-20 23:50] LABS: Glucose,Whole Blood 127 mg/dL (75-99)
[2016-08-21 02:14] LABS: Glucose,Whole Blood 141 mg/dL (75-99)
[2016-08-21] MEDS: IPRATROPIUM-ALBUTEROL 3 ML NEB INHALATION SCH ×4 (03:13→15:51)
[2016-08-21 04:11] LABS: Glucose,Whole Blood 153 mg/dL (75-99)
[2016-08-21 04:28] LABS: Basophils % (A) 0 %; CH 32.1; CHCM 32.9; Eosinophils # (A) 0.1 k/uL (0-0.7); Eosinophils % (A) 1 %; HCT 29.7 % (39.0-53.0); HDW 3.15; HGB 9.9 gm/dL (13.0-17.5); Luc # (Auto) 0.17; Luc % (Auto) 2; Lymphocytes # (A) 1.3 k/uL (1.0-4.8); Lymphocytes % (A) 19 %; MCH 32.8 pg (25.0-35.0); MCHC 33.3 g/dL (31.0-37.0); MCV 98.5 fL (80.0-100.0); Mean Platelet Volume 9.9; Monocytes # (A) 0.3 k/uL (0-1.0); Monocytes % (A) 4 %; Neutrophils # (A) 5.2 k/uL (1.3-7.7); Neutrophils % (A) 73 %; RBC 3.02 m/uL (4.30-5.90); RDW 14.8 % (11.5-15.5); WBC 7.1 k/uL (3.8-10.6); WBC (Perox) 6.98
[2016-08-21 04:58] LABS: ALT 78 U/L (21-72); AST 127 U/L (17-59); Alkaline Phosphatase 158 U/L (38-126); Anion Gap 7 mmol/L; Blood Urea Nitrogen 42 mg/dL (9-20); Calcium 7.8 mg/dL (8.4-10.2); Carbon Dioxide 25 mmol/L (22-30); Chloride 118 mmol/L (98-107); Glucose 170 mg/dL (74-99); Magnesium 2.6 mg/dL (1.6-2.3); Non-African American GFR(MDRD) >60 (>60 ml/min/1.73 sqM); Phosphorous 2.8 mg/dL (2.5-4.5); Potassium 3.9 mmol/L (3.5-5.1); Sodium 150 mmol/L (137-145); Total Bilirubin 1.4 mg/dL (0.2-1.3); Total Protein 4.8 g/dL (6.3-8.2)
[2016-08-21 06:57] LABS: Glucose,Whole Blood 164 mg/dL (75-99)
[2016-08-21 07:35] LABS: ABG Base Excess 0.6 mmol/L; ABG HCO3 23 mmol/L (21-25); ABG PCO2 30 mmHg (35-45); ABG PO2 104 mmHg (83-108); ABG TCO2 24 mmol/L (19-24)
--- NOTE | 2016-08-21 07:52 | XR ---
EXAMINATION TYPE: XR chest 1V portable DATE OF EXAM: 08/21/2016 COMPARISON: Prior chest x-ray July HISTORY: Status post cardiac surgery, intubated TECHNIQUE: Single frontal view of the chest is obtained. FINDINGS: Endotracheal tube, NG tube are overlying appropriate positions. Right-sided PICC line show s the tip at the cavoatrial junction level, left-sided chest tube is stable. No sizable pneumothorax or pleural effusion. Patchy basilar density is present, the heart remains enlarged. There may be some improvement in the interstitium and central vascularity. There are overlying cardiac leads. IMPRESSION: There may be some improvement in volume status, aeration. Basilar atelectasis suspected. Additional follow-up recommended.
[2016-08-21] MEDS ORDERED: POTASSIUM CHLORIDE ORAL LIQUID 40 MEQ/30 ML CUP NG-TUBE SCH (08:00)
[2016-08-21 08:43] LABS: Glucose,Whole Blood 159 mg/dL (75-99)
[2016-08-21] MEDS: ENOXAPARIN 80 MG/0.8 ML SYRINGE SQ SCH ×2 (08:51→21:39)
[2016-08-21] MEDS: METOPROLOL TARTRATE 25 MG TAB PO SCH (08:52)
[2016-08-21] MEDS: CHLORHEXIDINE GLUCONATE 15 ML CUP MUCOUS MEM SCH (08:52)
[2016-08-21] MEDS: MUPIROCIN 2% OINT 22 GM TUBE TOPICAL SCH ×2 (08:52→21:40)
[2016-08-21] MEDS: AMIODARONE 200 MG TAB PO SCH (08:52)
[2016-08-21] MEDS: PANTOPRAZOLE 40 MG/10 ML VIAL IVP SCH (08:52)
[2016-08-21] MEDS: ASPIRIN 81 MG CHEW PO SCH (08:53)
[2016-08-21] MEDS: DORZOLAMIDE HCL 2% DROPS 10 ML BTL LEFT EYE SCH (08:53)
[2016-08-21 10:29] LABS: Glucose,Whole Blood 133 mg/dL (75-99)
[2016-08-21 10:29] LABS: Glucose,Whole Blood 137 mg/dL (75-99)
[2016-08-21] MEDS: DEXTROSE 5% IN WATER 1,000 ML IV SCH (10:30)
--- NOTE | 2016-08-21 10:50 | P.PN ---
Subjective Principal diagnosis: Status post CABG postoperative day # 8 80-year-old male patient, complaining of exertional dyspnea over the past several months. The patient denied having any chest pain. 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 The patient was found to have occluded right coronary artery with collaterals filling from the left. The patient was found to have critical disease involving the left main coronary artery and critical disease involving diffuse marginal branch of circumflex and proximal LAD. Based on this, coronary artery bypass surgery was recommended. The patient was seen by cardiothoracic surgery and the tentative plan to undergo surgery on this patient is on Tuesday. The preoperative echocardiogram showed a preserved LV function with an ejection fraction of 50-55%. No evidence of any pulmonary hypertension. No evidence of any valvular abnormalities. There is evidence of hypertensive heart disease with concentric left ventricular hypertrophy. Chest x-ray shows no acute cardio pulmonary process. He has history of pulmonary embolism and DVT and the patient has been maintained on anticoagulation on outpatient basis with warfarin. On today's evaluation of 08/11/2016 the patient is stable. The patient has no specific complaints. The patient is using his incentive spirometer. The patient was found to have chronic thrombocytopenia and for that reason a hematology consultation was obtained. History of any chest pain. He remains on IV heparin. Awaiting surgery on Tuesday. A bedside spirometry is still to be done. On 08/13/2016 I'm seeing this patient following his coronary bypass surgery. The patient underwent the surgery without any major complication. I discussed the case with the thoracic surgeon and the intraoperative course was essentially uncomplicated. The patient currently is intubated on mechanical ventilator. He is still sedated. He is hemodynamically stable. He is on a nitroglycerin and Cleviprex Drip for tight blood pressure control. The patient' s cardiac output is at 6.3 with an index of 2.8. PA pressures 29/17. The patient is also has his chest tubes in place with total amount of output being low at this point despite his underlying thrombocytopenia. He is also on an insulin drip at 40 units an hour for blood sugar control. Chest x-ray shows adequate expansion of both lungs and the chest tubes, ET tube and the Chazy-Laya catheter in place. The blood gases showed a pH of 7.31 with a pCO2 of 48 and pO2 of 115 and it was not an FiO2 of 100% and I wean down the FiO2 down to 70% and the saturation is currently above 95%. The patient is also on assist control mode of ventilation with a PEEP of 5 and FiO2 of 70% with a tidal volume of 550. His rate is at 12. Postoperative platelet counts is at 42,000. Hemoglobin is at 10.9. The patient has not required any platelet transfusions. On 08/14/2016 the patient remains intubated on a mechanical ventilator. We failed to wean and extubate this patient yesterday because of oxygenation problems. This morning, the patient remained on assist control mode at the rate of 12, tidal volume 500, FiO2 of 60% and a PEEP of 5. The most recent blood gases showed a pH of 7.44 with a pCO2 of 24 and pO2 of 67. Chest x-ray is showing regular postsurgical changes with a mediastinal and the pleural chest tubes in place, ET tube is in a good location. The patient hemodynamically stable. He remains on a combination of nitroglycerin and Cleviprex drip for blood pressure control. His cardiac output as above 7 and the index is at 3.5. Is producing adequate amount of urine output. He remains sedated with Diprivan which is running at 30 mics. Nitroglycerin drip is running at 5 mics per minute and the Cleviprex is at 60 mg an hour. The patient is also on insulin drip at 10 units an hour. Output from the chest tubes have been 20 mL an hour. Meanwhile the patient had developed an acute kidney injury with a creatinine being up to 1.3. The bicarb level is down to 16 and the patient has a informed of non-anion gap metabolic acidosis. On 08/15/2016, the patient remains intubated. I was unable to wean this patient off the mechanical ventilator for several reasons. First and foremost, the patient was having borderline oxygenation. At the later stage, the patient started acting septic where he started having chills and fever and purulent foul -smelling respiratory secretions were also suctioned from his orotracheal tube. Based on all this, cultures and pain and the patient was started on IV Fortaz. Meanwhile, the patient was given IV fluids, overnight he received a bolus of normal saline 1 L and 2 boluses of albumin 12.5 g which improved his urine output. At this point in time, the patient is postop day #2. He is resting comfortably in bed. He is sedated with Diprivan and is calm and comfortable. He is an assist-control mode of ventilation and the most recent vent settings include an assist-control of 12, tidal volume of 600, FiO2 of 70% and a PEEP of 8. The most recent blood gases showed a pH of 7.47 with a pCO2 of 30 and pO2 of 78. Nevertheless, his pulse ox currently on the monitor is at 99% and FiO2 has been drop down to 60% and we will gradually weaning it down to maintain a saturation above 95%. He is afebrile for now. He still has a right IJ Chazy-Laya catheter and hemodynamic parameters show a cardiac output of 6 with an index of 2.7. The patient's white cell count is not elevated at 5.7. He will was stable at 10.6. Renal function is impaired with a creatinine of 1.4. He is off the Catapres drip. He is off the nitroglycerin drip. He is producing around 20-30 mL of urine output on an hourly basis and he has gained significant amount of weight and there is third spacing. Chest x-ray shows increased tone vessel markings. ET tube and NG tube are all in good location. The KARL drain in the left lower extremity is in place and the total amount of output is 10 mL. The 2 mediastinal chest tubes in the left pleural chest tubes are also in place with minimal amount of output. Platelet count is stable at 40 ,000. He insulin drip is on hold for now. On 08/16/2016, patient remains intubated, his gases are very marginal, remains on FiO2 of 70%, PEEP is now up to 12, chest x-ray shows what looks like a right lower lobe pneumonia and consolidation in the medial aspect of the right lower lobe. Patient is on broad-spectrum antibiotics coverage. Ventilator settings were reviewed, she is presently on FiO2 of 70%, PEEP of 12, tidal volume of 550 assist control rate of 14. Labs were reviewed, WBC count is 11.9 hemoglobin is 10.9. ABG showed a pO2 of 61 pCO2 of 36 pH of 7.42. Basic metabolic profile is normal however his BUN is 41 and creatinine is 1.40 baseline creatinine was 1.0 on 08/13. Chest x-ray showed cardiomegaly, worsening by basilar airspace disease especially at the right base and small pleural effusions noted. Patient is receiving Lasix daily. Remains on propofol drip. And fully sedated. On 08/17/2016, patient seems to have made a significant improvement from the pulmonary perspective. I was able to cut down his FiO2 to 45%, PEEP is down to 5, tidal volume is 550, and assist control rate is 14. ABG this morning showed a pO2 of 84 pCO2 of 34 pH of 7.42. However when attempted to wean the patient, he went into atrial fibrillation with RVR, hence I decided to hold back on weaning and placed back on assist control mode of mechanical ventilation. CBC showed a hemoglobin of 10.4 WBC count is 8.3. Basic metabolic profile is normal BUN is 58 creatinine is 1.60. Yesterday, patient was placed on Lovenox at 80 mg subcu every 12 hours, and this is mostly to replace his Coumadin since the patient had previous history of hypercoagulable state and pulmonary embolism , and I felt it would be worthwhile placing him on Lovenox instead of Coumadin for the time being. This was also discussed with the surgeon on the case. Platelets remain about the same today compared to yesterday. Not much of a change but they have always been low. On 08/18/2016, patient remains on mechanical ventilation, sedated, patient failed weaning yesterday because of tachycardia and increased shortness of breath upon initial weaning trial. Today however I plan to discontinue propofol , and give him another weaning trial today. Patient seems to be hemodynamically stable. Heart rate is in the 60s. Vent settings tidal volume of 550 assist control of 14 FiO2 is 45% PEEP is 5. ABG showed a pO2 of 97 pCO2 of 35 pH of 7.46. Chest x-ray showed by basilardisease, and small pleural effusions right more so than left. Sputum has been positive for Serratia marcescens, patient remains on Fortaz. The Serratia marcescens is sensitive to Fortaz. CBC is showing WBC count of 6.2 hemoglobin 9.5. Electrolytes were noted to be normal. BUN is 49 creatinine is 1.42. Patient remains on Lovenox every 12 hours. On 08/19/2016, patient remains on mechanical ventilation, off all sedatives and narcotics, however the patient does not seem to be waking up appropriately as expected. Opens eyes at the most, does not follow any instructions, and this is in spite of holding sedation for the last 24 hours. He did receive 1 dose of Ativan last night for restlessness. At any rate I have recommended a CT of the brain today, and I recommended that we continue to hold all narcotics and sedatives, and this was the patient is awake and follows instructions, we will proceed with rapid weaning and possibly extubation today. However his mental status seems to be the main reason for not extubating the patient. Ventilator settings are basically the same, he remains on tidal volume of 550, assist control of 14, FiO2 of 45% and PEEP is 5. ABG showed a pO2 of 123 pCO2 of 30 and pH of 7.51. WBC count is 4.2 hemoglobin is 9.6. Renal profile is improving , BUN is 44 creatinine is 1.22. Sodium is a bit on the high side 146. On 08/20/2016, patient remains off sedation, he did receive 1 mg of Ativan last night for extreme tachypnea with respiratory rate going as high as 40. However patient settled down easily with Ativan, and follow-up ABG and chest x-ray this morning are showing definite improvement overall. Patient remains on mechanical ventilation. Ventilator settings are about the same, and I was able to cut down the PEEP from 8-5. Remains on 50% FiO2. Assist control rate is 12 and tidal volume is 550. ABG showed a pO2 of 122 pCO2 of 29 pH of 7.50. Electrolytes continued to show hypernatremia and BUN of 42 creatinine of 1.20, patient is receiving free water via nasogastric tube to correct his hypernatremia. Mentation serrano, patient seems to be a bit more awake today compared to the previous days. At least he is opening his eyes upon verbal stimulation, he is following simple instructions like wiggling toes, squeezing hands, and sticking tongue upon request. Seems to be very appropriate. But remained generally weak. And falls asleep easily if left alone. Reevaluated on 08/21/2016, patient remains off sedation, he seems to be a bit more awake today compared to the last few days. Patient is still responding to all verbal stimuli, seems to be generally weak, but again this is the best I have seen him in the last 7 days. Patient remains on mechanical ventilation, ventilator settings are basically the same. His ABG showed a pO2 of 104 pCO2 of 30 pH of 7.50 chest x-ray showed mostly by basilar atelectasis right more so than left. CBC showed a hemoglobin of 9.9 electrolytes showed elevated sodium of 150 which I plan to correct with free water flushes via nasogastric tube. BUN is 42 creatinine is 1.09. Patient is relatively asymptomatic except for being generally weak. Objective - Vital Signs Vital signs: Vital Signs Temp 98.9 F 08/21/16 08:00 Pulse 66 08/21/16 10:00 Resp 19 08/21/16 10:00 BP 112/56 08/21/16 10:00 Pulse Ox 100 08/21/16 10:00 Intake & Output 08/20/16 08/21/16 08/21/16 18:59 06:59 18:59 Intake Total 1282.358 957.309 302.617 Output Total 936 1276 267 Balance 346.358 -318.691 35.617 Weight 118.9 kg Intake: IV 336 75 168 0.9 20 Dextrose 5% in Water 1, 50 000 ml @ 50 mls/hr IV . Q20H [facility] Rx#:[id number] Lactated Ringers 1,000 ml 180 @ 20 mls/hr IV .Q24H [facility] Rx#:[id number] cefTAZidime 2 gm In 100 100 Sodium Chloride 0.9% 100 ml @ 100 mls/hr IVPB Q12HR [facility] Rx#:[id number] pressure bag 36 75 18 Intake, IV Titration 76.358 72.309 74.617 Amount Insulin Regular 100 unit 56.358 52.309 34.617 In Sodium Chloride 0.9% 100 ml @ Titrate IV .Q0M [facility]N Rx#:[id number] Lactated Ringers 1,000 ml 20 20 40 @ 10 mls/hr IV .Q24H [facility] Rx#:[id number] Tube Feeding 780 720 60 Other 90 90 Output: Chest Tube Drainage 70 50 Chest Tube Left Lateral 70 50 Chest Drainage 125 170 Left Calf 125 170 Urine 740 1050 265 Stool 1 6 2 Other: Voiding Method Indwelling Catheter Indwelling Catheter Indwelling Catheter # Voids 1 # Bowel Movements 1 ABP, PAP, CO, CI - Last Documented Arterial Blood Pressure 144/51 Pulmonary Artery Pressure 41/23 Cardiac Output 7.4 Cardiac Index 3.3 - Exam Physical Exam: Revealed an 80-year-old white male on mechanical ventilation, in no form of respiratory distress. Endotracheal tube and orogastric tube are intact. HEENT:[Neck is supple.] [No neck masses.] [No thyromegaly.] [No JVD.] Chest: [Diminished breath sounds at the bases, no crackles, no rhonchi, no wheezes.] Cardiac Exam: [Normal S1 and S2, no S3 gallop, no murmur.] Abdomen: [Soft, nontender, no megaly, no rebound, no guarding, normal bowel sounds.] Extremities: [No clubbing, 1+ bipedal edema, no cyanosis.] Neurological Exam: Patient is definitely more arousable today, opens eyes, follows simple instructions, remained generally weak, - Labs CBC & Chem 7: 08/21/16 04:10 08/21/16 04:10 Labs: Abnormal Lab Results - Last 24 Hours (Table) 08/20/16 08/20/16 08/20/16 Range/Units 12:24 14:23 16:08 RBC (4.30-5.90) m/uL Hgb (13.0-17.5) gm/dL Hct (39.0-53.0) % Plt Count (150-450) k/uL ABG pH (7.35-7.45) ABG pCO2 (35-45) mmHg ABG O2 Saturation (94-97) % Sodium (137-145) mmol/L Chloride (98-107) mmol/L BUN (9-20) mg/dL Glucose (74-99) mg/dL POC Glucose (mg/dL) 164 H 147 H 133 H (75-99) mg/dL Calcium (8.4-10.2) mg/dL Magnesium (1.6-2.3) mg/dL Total Bilirubin (0.2-1.3) mg/dL AST (17-59) U/L ALT (21-72) U/L Alkaline Phosphatase (38-126) U/L Total Protein (6.3-8.2) g/dL Albumin (3.5-5.0) g/dL 08/20/16 08/20/16 08/20/16 Range/Units 18:16 19:56 21:51 RBC (4.30-5.90) m/uL Hgb (13.0-17.5) gm/dL Hct (39.0-53.0) % Plt Count (150-450) k/uL ABG pH (7.35-7.45) ABG pCO2 (35-45) mmHg ABG O2 Saturation (94-97) % Sodium (137-145) mmol/L Chloride (98-107) mmol/L BUN (9-20) mg/dL Glucose (74-99) mg/dL POC Glucose (mg/dL) 189 H 165 H 172 H (75-99) mg/dL Calcium (8.4-10.2) mg/dL Magnesium (1.6-2.3) mg/dL Total Bilirubin (0.2-1.3) mg/dL AST (17-59) U/L ALT (21-72) U/L Alkaline Phosphatase (38-126) U/L Total Protein (6.3-8.2) g/dL Albumin (3.5-5.0) g/dL 08/20/16 08/21/16 08/21/16 Range/Units 23:49 02:12 04:08 RBC (4.30-5.90) m/uL Hgb (13.0-17.5) gm/dL Hct (39.0-53.0) % Plt Count (150-450) k/uL ABG pH (7.35-7.45) ABG pCO2 (35-45) mmHg ABG O2 Saturation (94-97) % Sodium (137-145) mmol/L Chloride (98-107) mmol/L BUN (9-20) mg/dL Glucose (74-99) mg/dL POC Glucose (mg/dL) 127 H 141 H 153 H (75-99) mg/dL Calcium (8.4-10.2) mg/dL Magnesium (1.6-2.3) mg/dL Total Bilirubin (0.2-1.3) mg/dL AST (17-59) U/L ALT (21-72) U/L Alkaline Phosphatase (38-126) U/L Total Protein (6.3-8.2) g/dL Albumin (3.5-5.0) g/dL 08/21/16 08/21/16 08/21/16 Range/Units 04:10 04:10 06:56 RBC 3.02 L (4.30-5.90) m/uL Hgb 9.9 L (13.0-17.5) gm/dL Hct 29.7 L (39.0-53.0) % Plt Count 77 L (150-450) k/uL ABG pH (7.35-7.45) ABG pCO2 (35-45) mmHg ABG O2 Saturation (94-97) % Sodium 150 H (137-145) mmol/L Chloride 118 H (98-107) mmol/L BUN 42 H (9-20) mg/dL Glucose 170 H (74-99) mg/dL POC Glucose (mg/dL) 164 H (75-99) mg/dL Calcium 7.8 L (8.4-10.2) mg/dL Magnesium 2.6 H (1.6-2.3) mg/dL Total Bilirubin 1.4 H (0.2-1.3) mg/dL AST 127 H (17-59) U/L ALT 78 H (21-72) U/L Alkaline Phosphatase 158 H (38-126) U/L Total Protein 4.8 L (6.3-8.2) g/dL Albumin 2.2 L (3.5-5.0) g/dL 08/21/16 08/21/16 08/21/16 Range/Units 07:25 08:40 10:25 RBC (4.30-5.90) m/uL Hgb (13.0-17.5) gm/dL Hct (39.0-53.0) % Plt Count (150-450) k/uL ABG pH 7.50 H (7.35-7.45) ABG pCO2 30 L (35-45) mmHg ABG O2 Saturation 99.0 H (94-97) % Sodium (137-145) mmol/L Chloride (98-107) mmol/L BUN (9-20) mg/dL Glucose (74-99) mg/dL POC Glucose (mg/dL) 159 H 133 H (75-99) mg/dL Calcium (8.4-10.2) mg/dL Magnesium (1.6-2.3) mg/dL Total Bilirubin (0.2-1.3) mg/dL AST (17-59) U/L ALT (21-72) U/L Alkaline Phosphatase (38-126) U/L Total Protein (6.3-8.2) g/dL Albumin (3.5-5.0) g/dL 08/21/ Range/Units 10:27 RBC (4.30-5.90) m/uL Hgb (13.0-17.5) gm/dL Hct (39.0-53.0) % Plt Count (150-450) k/uL ABG pH (7.35-7.45) ABG pCO2 (35-45) mmHg ABG O2 Saturation (94-97) % Sodium (137-145) mmol/L Chloride (98-107) mmol/L BUN (9-20) mg/dL Glucose (74-99) mg/dL POC Glucose (mg/dL) 137 H (75-99) mg/dL Calcium (8.4-10.2) mg/dL Magnesium (1.6-2.3) mg/dL Total Bilirubin (0.2-1.3) mg/dL AST (17-59) U/L ALT (21-72) U/L Alkaline Phosphatase (38-126) U/L Total Protein (6.3-8.2) g/dL Albumin (3.5-5.0) g/dL Assessment and Plan Plan: 1 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 The patient underwent coronary bypass surgery and currently is postop day 8 2 postoperative hypoxemia with difficulties in weaning due to ongoing oxygenation problem. This was felt to be related to air space disease, and possible pneumonia involving the right lower lobe mostly. Could also be acute lung injury related. 3diabetes mellitus on insulin drip for blood sugar control 4 post thoracotomy respiratory failure, expected, currently the oxygenation remains borderline . Chest x-ray findings are consistent with increased interstitial markings probably related to fluid overload. The patient has adequate cardiac index output for now. Hemodynamically stable. Possibility of acute lung injury is not entirely ruled out. However significant improvement was noted in the chest x-ray and in the ABG over the last few days. 5 previous history of DVT and pulmonary embolism , maintained on warfarin outpatient basis, patient will be restarted on Lovenox 80 mg subcu every 12 hours beginning today. In the meantime we'll continue to monitor his low platelets. Patient has chronic thrombocytopenia to begin with. 6 thrombocytopenia him a stable with a platelet count, without evidence of any acute bleeding 7 acute kidney injury, creatinine is down to 1.09, hypernatremia, being corrected with free water flushes. 8 postoperative respiratory failure, failure to wean which was not expected, mostly secondary to hypoxic respiratory failure secondary to pneumonia, hospital -acquired, sputum is positive for Serratia marcescens. suspect some component of congestive heart failure, and possible acute lung injury. Possibility of pulmonary embolism is not entirely ruled out, but felt to be less likely. However will empirically continue antibiotics, bronchodilators, and Lovenox subcu. Recommendation: I plan to wean and extubate the patient, likely today, patient will be placed on IMV pressure support mode of mechanical ventilation, I will gradually cut down the IMV rate, and keep him on a pressure support of 8, until we reach a pressure support of 8 and CPAP of 5. If the patient continues to do well, may seriously consider extubation today. Still a bit of concern about his generalized weakness, but it seems to be this is the best he has been over the last 7 days. Discussed his condition with the nurses at bedside, discussed all his issues and adjusted his vent settings as well as IV fluid and rate and free water flushes were ordered. Critical care time is 33 minutes. Time with Patient: Greater than 30
--- NOTE | 2016-08-21 11:19 | P.PN ---
<Sarabjit Awan - Last Filed: 08/21/16 11:18> Progress Note - Text CV Surgery Nursing Principal diagnosis: Multivessel coronary artery disease POD #8 coronary artery bypass grafting 2 vessels (left internal mammary artery to left anterior descending artery, saphenous vein graft to obtuse marginal artery). Endoscopic vein harvest left greater saphenous vein. Intraoperative Epi -aortic ultrasound. Intraoperative Transesophageal echocardiogram. Postoperative acute hypoxic respiratory failure requiring mechanical ventilation , failure to wean secondary to Serratia marcescens pneumonia, an unexpected postoperative complication. Patient remains intubated with mechanical ventilator support. He has his eyes open this a.m. and is following simple commands appropriately to all 4 extremities. He shook his head no when asked if he is having any pain. His sedation has been on hold now for almost 72 hours. Vital Signs: Afebrile Vital Signs - 24 hr 08/20/16 08/20/16 08/20/16 10:00 11:00 11:10 Temperature Pulse Rate 64 62 63 Respiratory 20 25 H Rate Blood Pressure 127/45 98/50 O2 Sat by Pulse 99 99 Oximetry 08/20/16 08/20/16 08/20/16 11:23 12:00 13:00 Temperature 100.7 F H Pulse Rate 69 67 68 Respiratory 26 H 23 Rate Blood Pressure 121/60 150/61 O2 Sat by Pulse 99 98 Oximetry 08/20/16 08/20/16 08/20/16 14:00 15:00 15:20 Temperature Pulse Rate 64 67 67 Respiratory 21 25 H Rate Blood Pressure 130/58 134/59 O2 Sat by Pulse 99 98 Oximetry 08/20/16 08/20/16 08/20/16 15:32 16:00 17:00 Temperature 98.6 F Pulse Rate 68 70 73 Respiratory 25 H 30 H Rate Blood Pressure 152/62 145/59 O2 Sat by Pulse 98 98 Oximetry 08/20/16 08/20/16 08/20/16 18:00 19:00 19:57 Temperature Pulse Rate 71 75 76 Respiratory 23 22 Rate Blood Pressure 163/68 144/66 O2 Sat by Pulse 99 98 Oximetry 08/20/16 08/20/16 08/20/16 20:00 20:12 21:00 Temperature 98.5 F Pulse Rate 76 65 61 Respiratory 23 19 Rate Blood Pressure 165/65 135/47 O2 Sat by Pulse 98 99 Oximetry 08/20/16 08/20/16 08/20/16 22:00 22:21 23:00 Temperature Pulse Rate 70 67 69 Respiratory 22 19 26 H Rate Blood Pressure 135/57 125/59 125/59 O2 Sat by Pulse 99 99 100 Oximetry 08/20/16 08/20/16 08/21/16 23:29 23:40 00:00 Temperature 98.9 F Pulse Rate 70 80 74 Respiratory 24 Rate Blood Pressure 139/65 O2 Sat by Pulse 99 Oximetry 08/21/16 08/21/16 08/21/16 01:00 02:00 03:00 Temperature Pulse Rate 86 71 72 Respiratory 24 19 22 Rate Blood Pressure 143/65 145/68 145/68 O2 Sat by Pulse 99 99 100 Oximetry 08/21/16 08/21/16 08/21/16 03:05 03:16 03:20 Temperature Pulse Rate 73 72 Respiratory Rate Blood Pressure O2 Sat by Pulse 100 Oximetry 08/21/16 08/21/16 08/21/16 04:00 05:00 06:00 Temperature 98.9 F Pulse Rate 75 74 70 Respiratory 32 H 20 17 Rate Blood Pressure 135/60 135/60 O2 Sat by Pulse 100 99 100 Oximetry 08/21/16 08/21/16 08/21/16 07:00 07:17 07:33 Temperature Pulse Rate 74 79 73 Respiratory 20 Rate Blood Pressure O2 Sat by Pulse 99 Oximetry 08/21/16 08/21/16 08:00 09:00 Temperature 98.9 F Pulse Rate 77 80 Respiratory 26 H 25 H Rate Blood Pressure 148/68 145/54 O2 Sat by Pulse 100 98 Oximetry Labs: Short CBC 08/21/16 Range/Units 04:10 WBC 7.1 (3.8-10.6) k/uL Hgb 9.9 L (13.0-17.5) gm/dL Hct 29.7 L (39.0-53.0) % Plt Count 77 L (150-450) k/uL Neutrophils # 5.2 (1.3-7.7) k/uL BMP 08/21/16 04:10 Sodium 150 H Potassium 3.9 Chloride 118 H Carbon Dioxide 25 BUN 42 H Creatinine 1.09 Glucose 170 H Calcium 7.8 L Liver Function 08/21/16 Range/Units 04:10 Total Bilirubin 1.4 H (0.2-1.3) mg/dL AST 127 H (17-59) U/L ALT 78 H (21-72) U/L Alkaline Phosphatase 158 H (38-126) U/L Albumin 2.2 L (3.5-5.0) g/dL ABG ABG pH 7.50 (7.35-7.45) H 08/21/16 07:25 ABG pCO2 30 mmHg (35-45) L 08/21/16 07:25 ABG pO2 104 mmHg (83-108) 08/21/16 07:25 ABG O2 Saturation 99.0 % (94-97) H 08/21/16 07:25 Microbiology 08/14/16 19:56 Sputum Gram Stain - Final 08/14/16 19:56 Sputum Sputum Culture - Final Serratia marcescens 08/09/16 22:10 Nasal Swab Nasal Screen MRSA/MSSA ([facility]) - Final 08/09/16 22:10 Urine,Voided Urine Culture - Final IV Fluids: Lactated Ringer's at 20 mL per hour Insulin drip at 6.5 units per hour. Lungs: Few scattered rhonchi throughout, diminished bilateral bases. Respirations are symmetrical and unlabored with mechanical ventilator support. Current ventilator settings are as follows, SIMV 6, PS 8, TV 550, PEEP 5, FIO2 50%. O2 sat: 99% with 50% FiO2 mechanical ventilator support. Heart: S1S2, regular rhythm and rate, negative for S3, gallop or murmur. Bedside telemetry showing normal sinus rhythm heart rate 81. Sternum stable, chest incision clean with sternal dressing clean and dry. Heart hugger in place, the patient will need assistance using the heart hugger due to his upper extremity weakness. Left leg incisions clean dry and well approximated. No drainage noted. KARL drain in place to his left lower leg, 110 mL output in the last 12 hours of thin serosanguineous drainage. Abdomen: Soft, Positive bowel sounds present in all 4 quadrants, positive bowel movement this a.m. OG tube in place with vital high-protein to feeding infusing at 60 mL per hour, with 30 mL every 4 hours automatic water flushes. CBGs: 127-164 mg/dL in the last 24 hours. U/O: Adequate, Thornton catheter for accurate I&O. 760 mL output in the last 8 hours. Chest Tubes: Left pleural chest tube without air leak, remains to water seal. Draining thin serosanguineous drainage. 50 mL output in the last 8 hours, 160 mL output in the last 24 hours. 24 hr Total: Intake & Output 08/19/16 08/20/16 08/21/16 08/22/16 06:59 06:59 06:59 06:59 Intake Total 7194.952 6279.833 2239.667 83.800 Output Total 1984 1870 2212 1 Balance -236.257 266.833 27.667 82.800 Weight 118.25 kg 118.9 kg 118.9 kg Active Medications Acetaminophen (Tylenol Tab) 650 mg PO Q6HR PRN PRN Reason: Mild Pain or Fever > 38.3 C Last Admin: 08/19/16 20:16 Dose: 650 mg Hydrocodone Bitart/Acetaminophen ([place] 5-325) 2 each PO Q4HR PRN PRN Reason: Severe Pain Last Admin: 08/16/16 21:42 Dose: 2 each Hydrocodone Bitart/Acetaminophen ([place] 5-325) 1 each PO Q4HR PRN PRN Reason: Moderate Pain Albuterol/Ipratropium (Duoneb 0.5 Mg-3 Mg/3 Ml Soln) 3 ml INHALATION RT-Q4H [facility] Last Admin: 08/21/16 07:15 Dose: 3 ml Albuterol/Ipratropium (Duoneb 0.5 Mg-3 Mg/3 Ml Soln) 3 ml INHALATION RT-Q2H PRN PRN Reason: Shortness Of Breath Or Wheezing Amiodarone HCl (Cordarone) 200 mg PO DAILY [facility] Last Admin: 08/21/16 08:52 Dose: 200 mg Aspirin (Aspirin) 81 mg PO DAILY [facility] Last Admin: 08/21/16 08:53 Dose: 81 mg Atorvastatin Calcium (Lipitor) 40 mg PO DAILY [facility] Last Admin: 08/19/16 08:31 Dose: 40 mg Benzocaine/Menthol (Cepacol Lozenge) 1 each MUCOUS MEM Q2H PRN PRN Reason: Sore Throat Bisacodyl (Dulcolax) 10 mg RECTAL DAILY PRN PRN Reason: Constipation Last Admin: 08/16/16 09:24 Dose: 10 mg Chlorhexidine Gluconate (Peridex) 15 ml MUCOUS MEM BID [facility] Last Admin: 08/21/16 08:52 Dose: 15 ml Dorzolamide HCl (Trusopt) 1 drops LEFT EYE DAILY [facility] Last Admin: 08/21/16 08:53 Dose: 1 drops Enoxaparin Sodium (Lovenox) 80 mg SQ Q12HR [facility] Last Admin: 08/21/16 08:51 Dose: 80 mg Insulin Human Regular 100 unit (/ Sodium Chloride) 101 mls @ 0 mls/hr IV .Q0M PRN; Titrate PRN Reason: OPEN HEART Last Infusion: 08/21/16 08:30 Dose: 5.5 mls/hr Ceftazidime 2 gm/ Sodium (Chloride) 100 mls @ 100 mls/hr IVPB Q12HR [facility] Last Admin: 08/21/16 08:52 Dose: 100 mls/hr Dextrose/Water (Dextrose 5%-Water Iv Soln) 1,000 mls @ 50 mls/hr IV .Q20H [facility] Latanoprost (Xalatan 0.005%) 1 drops BOTH EYES HS [facility] Last Admin: 08/20/16 20:02 Dose: 1 drops Magnesium Hydroxide (Milk Of Magnesia) 2,400 mg PO BID PRN PRN Reason: Constipation Last Admin: 08/16/16 09:22 Dose: 2,400 mg Metoprolol Tartrate (Lopressor) 25 mg PO BID [facility] Last Admin: 08/21/16 08:52 Dose: 25 mg Miscellaneous Information (Magnesium Per Protocol) 1 each MISCELLANE DAILY PRN ; Protocol PRN Reason: Per Protocol Miscellaneous Information (Phosphorus Per Protocol) 1 each MISCELLANE DAILY PRN ; Protocol PRN Reason: Per Protocol Miscellaneous Information (Potassium Per Protocol) 1 each MISCELLANE DAILY PRN ; Protocol PRN Reason: Per Protocol Mupirocin (Bactroban Oint) 1 applic TOPICAL BID [facility] Last Admin: 08/21/16 08:52 Dose: 1 applic Naloxone HCl (Narcan) 0.2 mg IV Q2M PRN PRN Reason: Opioid Reversal Nitroglycerin (Nitrostat) 0.4 mg SUBLINGUAL Q5M PRN PRN Reason: Chest Pain Ondansetron HCl (Zofran) 4 mg IVP Q6HR PRN PRN Reason: Nausea And Vomiting Pantoprazole Sodium (Protonix) 40 mg IVP DAILY [facility] Last Admin: 08/21/16 08:52 Dose: 40 mg Prednisolone Acetate (Pred Forte 1%) 1 drops LEFT EYE MOTH [facility] Last Admin: 08/19/16 17:00 Dose: 1 drops Plan: 1. Will continue to hold statin secondary to elevated liver enzymes AST 127, ALT 78. 2. Continue amiodarone for atrial fibrillation prophylaxis. 3. Continue Lovenox secondary to history of DVT. 4. We will give Lasix 20 mg IV 1 today. 5. Ventilator management per Dr. Lazo from pulmonology medicine. Weaning trials ordered for this a.m. 6. Continue tube feedings, vital high-protein which is at goal. We will increase his automatic water flushes to 50 mL every 4 hours. 7. Antibiotics management per pulmonary medicine/infectious disease Sputum culture positive for Serratia marcescens 8. Daily labs, chest x-rays. 9. GI/DVT prophylaxis. 10. We will discontinue his left pleural chest tube. 11. More recommendations as patient progresses. <Ramin Traore - Last Filed: 08/21/16 11:43> Progress Note - Text The patient was seen and examined. I agree with the above assessment and plan. He looks more awake today than he has all week. He is opening his eyes, interacting, and following commands. He moves all 4 extremities. We will continue to wean his ventilator today with hopes of extubation. Otherwise he remains stable. We'll discontinue his remaining pleural chest tube. His sodium has increased and we will start some gentle hydration. He will continue antibiotics as directed by infectious disease.
--- NOTE | 2016-08-21 11:57 | PN ---
DATE OF SERVICE: 08/20/2016 ATTENDING NOTE: This patient was seen and examined by me on 08/20/2016. I reviewed the note of my nurse practitioner, Ms. Kapadia. I discussed and agreed to the same. Patient remains on the ventilator. He is on IV antibiotics for Serratia marcescens. Chest tube remains in place. He has been ( ) 48 hours. ON EXAMINATION: Lying in bed, intubated. Does respond to commands. LUNGS: Decreased breath sounds. CARDIOVASCULAR: First and second sounds normal. Some trach secretions are present. INVESTIGATIONS: Accu-Cheks are noted. Blood gas did show pH of 7.51. White count 5.4, hemoglobin 9.8. Sodium 148. ASSESSMENT: 1. Status post coronary artery bypass grafting. 2. Coronary artery disease. 3. Serratia marcescens pneumonia. 4. Alkalosis with some hypernatremia. Patient may be a little bit fluid deficit. PLAN: Discussed with Dr. Lazo. At this point, suggest to continue current treatment plan. Will follow.
[2016-08-21 12:03] LABS: Glucose,Whole Blood 120 mg/dL (75-99)
[2016-08-21 13:18] LABS: ABG Base Excess 0.2 mmol/L; ABG HCO3 23 mmol/L (21-25); ABG PCO2 30 mmHg (35-45); ABG PO2 109 mmHg (83-108); ABG TCO2 24 mmol/L (19-24)
--- NOTE | 2016-08-21 13:47 | PN ---
Mr. Michele is now opening his eyes. His heart rate is in the 60s, sinus rhythm. His blood pressure is 137/64 mmHg. Breath sounds are reduced bilaterally. Heart sounds S1, S2 are soft. His labs are reviewed and his sodium 150. His AST is 127, ALT 78. IMPRESSION: 1. Very slow progress after coronary artery bypass grafting, still intubated. 2. Acute on chronic respiratory failure. 3. Hypernatremia. SUGGEST: Continue cardiac medications and nephrology evaluation for hypernatremia. Patient's arms and legs are edematous.
[2016-08-21 14:11] LABS: Glucose,Whole Blood 126 mg/dL (75-99)
[2016-08-21 16:28] LABS: Glucose,Whole Blood 125 mg/dL (75-99)
[2016-08-21] MEDS: INSULIN REGULAR 100 UNIT in SODIUM CHLORIDE 0.9% 100 ML IV PRN (16:38)
[2016-08-21 18:09] LABS: Glucose,Whole Blood 130 mg/dL (75-99)
[2016-08-21] MEDS: METOPROLOL TARTRATE 5 MG/5 ML VIAL IVP SCH (21:40)
[2016-08-21] MEDS: LATANOPROST 0.005% OPHTH DROPS 2.5 ML BTL BOTH EYES SCH (21:40)
[2016-08-21 21:43] LABS: Glucose,Whole Blood 119 mg/dL (75-99)
[2016-08-22 00:10] LABS: Glucose,Whole Blood 89 mg/dL (75-99)
[2016-08-22 01:33] LABS: Glucose,Whole Blood 103 mg/dL (75-99)
[2016-08-22 03:20] LABS: Basophils % (A) 0 %; CH 32.1; CHCM 31.7; Eosinophils # (A) 0.2 k/uL (0-0.7); Eosinophils % (A) 2 %; HCT 30.8 % (39.0-53.0); HDW 3.22; HGB 9.9 gm/dL (13.0-17.5); Hypochromasia Slight; Luc # (Auto) 0.12; Luc % (Auto) 2; Lymphocytes # (A) 1.1 k/uL (1.0-4.8); Lymphocytes % (A) 17 %; MCH 32.9 pg (25.0-35.0); MCHC 32.3 g/dL (31.0-37.0); Macrocytosis Slight; Mean Platelet Volume 10.3; Monocytes # (A) 0.3 k/uL (0-1.0); Monocytes % (A) 4 %; Neutrophils % (A) 75 %; RBC 3.02 m/uL (4.30-5.90); RDW 14.7 % (11.5-15.5); WBC 6.7 k/uL (3.8-10.6); WBC (Perox) 6.94
[2016-08-22 03:39] LABS: ALT 75 U/L (21-72); AST 101 U/L (17-59); Alkaline Phosphatase 153 U/L (38-126); Anion Gap 4 mmol/L; Blood Urea Nitrogen 38 mg/dL (9-20); Calcium 7.9 mg/dL (8.4-10.2); Carbon Dioxide 27 mmol/L (22-30); Chloride 118 mmol/L (98-107); Glucose 123 mg/dL (74-99); Magnesium 2.6 mg/dL (1.6-2.3); Non-African American GFR(MDRD) >60 (>60 ml/min/1.73 sqM); Phosphorous 2.9 mg/dL (2.5-4.5); Sodium 149 mmol/L (137-145); Total Bilirubin 1.5 mg/dL (0.2-1.3); Total Protein 4.8 g/dL (6.3-8.2)
[2016-08-22 04:14] LABS: Glucose,Whole Blood 124 mg/dL (75-99)
[2016-08-22] MEDS: METOPROLOL TARTRATE 5 MG/5 ML VIAL IVP SCH ×3 (06:08→18:45)
[2016-08-22 06:14] LABS: Glucose,Whole Blood 124 mg/dL (75-99)
[2016-08-22] MEDS: DEXTROSE 5% IN WATER 1,000 ML IV SCH ×2 (07:08→10:12)
[2016-08-22] MEDS: IPRATROPIUM-ALBUTEROL 3 ML NEB INHALATION PRN ×2 (07:35→11:20)
[2016-08-22 07:53] LABS: Glucose,Whole Blood 118 mg/dL (75-99)
--- NOTE | 2016-08-22 07:58 | XR ---
EXAMINATION TYPE: XR chest 1V portable DATE OF EXAM: 08/22/2016 COMPARISON: Prior chest x-ray 21 Aug 2016 HISTORY: Postop cardiac surgery TECHNIQUE: Single frontal view of the chest is obtained. FINDINGS: Patient is post median sternotomy and rotated. There is been interval extubation. Lung vol umes are low. No pneumothorax or pleural effusion. Right-sided PICC line is stable. Left-sided chest tube is no longer evident. Interstitium and central vascularity are prominent, the heart remains enla rged. IMPRESSION: Low lung volumes, rotated exam. Correlate for possible volume overload, pulmonary venous hypertension and interstitial edema. Interval tube removal as described.
[2016-08-22] MEDS: ENOXAPARIN 80 MG/0.8 ML SYRINGE SQ SCH ×2 (08:39→20:30)
[2016-08-22] MEDS: DORZOLAMIDE HCL 2% DROPS 10 ML BTL LEFT EYE SCH (08:39)
[2016-08-22] MEDS: PANTOPRAZOLE 40 MG/10 ML VIAL IVP SCH (08:39)
[2016-08-22] MEDS: MUPIROCIN 2% OINT 22 GM TUBE TOPICAL SCH (08:40)
--- NOTE | 2016-08-22 09:04 | PN ---
DATE OF SERVICE: 08/21/2016 This is an 80-year-old gentleman who was admitted after CAD, CABG. He was extubated today. The patient had respiratory failure. The patient is mildly confused. The blood sugar is being controlled by insulin drip at this time, up to 5 to 6 units/hour. The patient has symptomatic multivessel disease. The patient also had a postoperative hypoxemia. PAST MEDICAL HISTORY: Reviewed. REVIEW OF SYSTEMS: CARDIOVASCULAR: No angina or palpitations. RESPIRATORY: As mentioned earlier. GI: As mentioned earlier. : No dysuria or hematuria. MEDICATIONS: Reviewed and include: 1. Tylenol 650 every 6 q.i.d. and p.r.n. 2. Cordarone 200 mg daily. 3. Aspirin 81 mg. 4. Lipitor 40 mg daily. 5. Cepacol. 6. Dulcolax. 7. Ceftazidime 2 g IV b.i.d. 8. Trusopt one drop. 9. Lovenox 80 mg subcu b.i.d. 10. Xalatan. 11. Milk of magnesia. 12. Lopressor. 13. Magnesium replacement protocol. 14. Nitrostat. 15. Zofran. 16. Protonix. The patient is alert and oriented x3. Pulse 81, blood pressure 140/70, respirations 22, temperature normal, pulse ox 97% on 5 liters. HEENT: Conjunctivae normal. Oral mucosa moist. CARDIOVASCULAR: S1 and S2. LUNGS: Bilateral scattered rhonchi and crackles. ABDOMEN: Soft. Nontender. EXTREMITIES: No edema. LABS: WBC 7, hemoglobin is 9.9. ABG, pH of 7.7, otherwise, total bilirubin is 1.4. AST 137, ALT 78. ASSESSMENT: 1. Status post coronary artery disease with triple vessel disease and coronary artery bypass grafting. 2. Diabetes mellitus type 2, on insulin drip. 3. 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 4. Hyperlipidemia. 5. Primary degenerative joint disease, multiple joints bilaterally. 6. Benign prostatic hypertrophy, stable. 7. 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 8. Postoperative ventilator support. 9. Possible acute respiratory failure secondary to pneumonia, hospital acquired. 10. Sputum culture, gram negative bacilli and serratia marcescens. 11. Elevated liver function tests. RECOMMENDATIONS AND DISCUSSION: In this 80-year-old gentleman who presented with multiple medical issues, we will monitor the patient closely. Continue current medications, continue with insulin drip. Once the patient's p.o. intake is stable, the patient will be transitioned to 3 shot protocol and continue to monitor. Otherwise, continue bronchodilators, empiric antibiotics, medications and DVT prophylaxis. Closely follow. Follow closely with cardiology as well as pulmonology. Further recommendations to follow.
[2016-08-22 09:53] LABS: Glucose,Whole Blood 125 mg/dL (75-99)
[2016-08-22] MEDS: NYSTATIN 100,000 UNIT/ML SUSP 500,000 UNIT/5 ML CUP PO SCH ×4 (10:12→22:05)
--- NOTE | 2016-08-22 11:44 | P.PN ---
<Sarabjit Awan - Last Filed: 08/22/16 11:44> Progress Note - Text CV Surgery Nursing Principal diagnosis: Multivessel coronary artery disease POD #9 coronary artery bypass grafting 2 vessels (left internal mammary artery to left anterior descending artery, saphenous vein graft to obtuse marginal artery). Endoscopic vein harvest left greater saphenous vein. Intraoperative Epi -aortic ultrasound. Intraoperative Transesophageal echocardiogram. Postoperative acute hypoxic respiratory failure requiring mechanical ventilation , failure to wean secondary to Serratia marcescens pneumonia, an unexpected postoperative complication. Patient awake and alert, no distress noted, he is complaining of a sore mouth. The patient is oriented x [address] He can state the year, but does not know the day or current time. Vital Signs: Afebrile Vital Signs - 24 hr 08/21/16 08/21/16 08/21/16 11:00 11:09 11:28 Temperature Pulse Rate 78 67 64 Respiratory 22 Rate Blood Pressure 137/64 O2 Sat by Pulse 100 Oximetry 08/21/16 08/21/16 08/21/16 12:00 13:00 14:00 Temperature 98.5 F Pulse Rate 89 66 65 Respiratory 22 18 29 H Rate Blood Pressure 125/60 119/61 149/74 O2 Sat by Pulse 99 99 93 L Oximetry 08/21/16 08/21/16 08/21/16 15:00 15:57 16:00 Temperature 98.6 F Pulse Rate 81 68 68 Respiratory 22 19 Rate Blood Pressure 140/57 130/52 O2 Sat by Pulse 96 96 96 Oximetry 08/21/16 08/21/16 08/21/16 16:19 17:00 18:00 Temperature Pulse Rate 68 72 70 Respiratory 20 17 Rate Blood Pressure 128/59 122/53 O2 Sat by Pulse 96 97 Oximetry 08/21/16 08/21/16 08/21/16 19:00 20:00 21:00 Temperature Pulse Rate 79 74 71 Respiratory 16 18 18 Rate Blood Pressure 117/55 159/60 134/60 O2 Sat by Pulse 97 95 97 Oximetry 08/21/16 08/21/16 08/21/16 22:00 23:00 23:02 Temperature Pulse Rate 57 L 61 67 Respiratory 18 18 21 Rate Blood Pressure 125/54 118/52 117/55 O2 Sat by Pulse 98 97 98 Oximetry 08/21/16 08/22/16 08/22/16 23:17 00:00 01:00 Temperature Pulse Rate 63 85 Respiratory 18 19 17 Rate Blood Pressure 134/54 109/52 O2 Sat by Pulse 97 96 Oximetry 08/22/16 08/22/16 08/22/16 02:00 03:00 04:00 Temperature Pulse Rate 73 71 69 Respiratory 31 H 33 H 26 H Rate Blood Pressure 111/55 127/58 114/53 O2 Sat by Pulse 96 96 96 Oximetry 08/22/16 08/22/16 08/22/16 05:00 06:00 07:00 Temperature Pulse Rate 75 71 60 Respiratory 21 23 17 Rate Blood Pressure 126/50 104/56 104/53 O2 Sat by Pulse 97 97 98 Oximetry 08/22/16 08/22/16 08/22/16 07:35 07:45 07:47 Temperature Pulse Rate 71 69 Respiratory Rate Blood Pressure O2 Sat by Pulse 96 Oximetry 08/22/16 08/22/16 08/22/16 08:00 09:00 10:00 Temperature 97.8 F Pulse Rate 64 64 66 Respiratory 20 15 17 Rate Blood Pressure 126/60 113/52 103/51 O2 Sat by Pulse 99 95 97 Oximetry Labs: Short CBC 08/22/16 Range/Units 03:10 WBC 6.7 (3.8-10.6) k/uL Hgb 9.9 L (13.0-17.5) gm/dL Hct 30.8 L (39.0-53.0) % Plt Count 82 L (150-450) k/uL Neutrophils # 5.0 (1.3-7.7) k/uL BMP 08/21/16 08/22/16 12:00 03:10 Sodium 149 H Potassium 4.0 4.0 Chloride 118 H Carbon Dioxide 27 BUN 38 H Creatinine 1.11 Glucose 123 H Calcium 7.9 L Liver Function 08/22/16 Range/Units 03:10 Total Bilirubin 1.5 H (0.2-1.3) mg/dL AST 101 H (17-59) U/L ALT 75 H (21-72) U/L Alkaline Phosphatase 153 H (38-126) U/L Albumin 2.1 L (3.5-5.0) g/dL Microbiology 08/14/16 19:56 Sputum Gram Stain - Final 08/14/16 19:56 Sputum Sputum Culture - Final Serratia marcescens 08/09/16 22:10 Nasal Swab Nasal Screen MRSA/MSSA ([facility]) - Final 08/09/16 22:10 Urine,Voided Urine Culture - Final IV Fluids: D5W at 50 mL per hour Insulin drip at 3.5 units per hour. Lungs: Essentially clear throughout, diminished bilateral bases. Respirations are symmetrical and unlabored. O2 sat: 97% on 3 L nasal cannula. I/S: 250-500 mL, reviewed with the patient important of using his incentive spirometry every hour while awake. The patient will need further encouragement on his incentive spirometry due to his generalized weakness. Heart: S1S2, regular rhythm and rate, negative for S3, gallop or murmur. Bedside telemetry showing normal sinus rhythm with frequent PACs heart rate 97. Sternum stable, chest incision clean with sternal dressing clean and dry. No drainage noted. Heart hugger in place, the patient will need further instructions and encouragement to use the heart hugger due to his generalized weakness. Left leg incisions clean dry and well approximated. There is a small fluid- filled blister to his incision to his left mid leg. KARL drain remains in place, 140 mL output in the last 8 hours, 200 mL output in the last 24 hours. Right arm PICC line clean dry and intact. Knee-high HARRIS hose and sequential compression devices in place to his bilateral lower extremities. Abdomen: Soft and distended, Positive hypoactive bowel sounds present in all 4 quadrants. Last BM documented 08/21/16. The patient failed his bedside swallow test last p.m. with color coding to his tongue, he is complaining of a sore mouth. CBGs: 103-130 mg/dL last 24 hours. U/O: Adequate, Thornton catheter for accurate I&O. 450 mL output in the last 8 hours. 24 hr Total: Intake & Output 08/20/16 08/21/16 08/22/16 08/23/16 06:59 06:59 06:59 06:59 Intake Total 2136.833 2239.667 1171.225 292.80 Output Total 1870 2212 1239 180 Balance 266.833 27.667 -67.775 112.80 Weight 118.9 kg 118.9 kg 117.3 kg 117.3 kg Active Medications Acetaminophen (Tylenol Tab) 650 mg PO Q6HR PRN PRN Reason: Mild Pain or Fever > 38.3 C Last Admin: 08/19/16 20:16 Dose: 650 mg Albuterol/Ipratropium (Duoneb 0.5 Mg-3 Mg/3 Ml Soln) 3 ml INHALATION RT-Q2H PRN PRN Reason: Shortness Of Breath Or Wheezing Last Admin: 08/22/16 07:35 Dose: 3 ml Amiodarone HCl (Cordarone) 200 mg PO DAILY [facility] Last Admin: 08/21/16 08:52 Dose: 200 mg Aspirin (Aspirin) 81 mg PO DAILY [facility] Last Admin: 08/21/16 08:53 Dose: 81 mg Atorvastatin Calcium (Lipitor) 40 mg PO DAILY [facility] Last Admin: 08/19/16 08:31 Dose: 40 mg Benzocaine/Menthol (Cepacol Lozenge) 1 each MUCOUS MEM Q2H PRN PRN Reason: Sore Throat Bisacodyl (Dulcolax) 10 mg RECTAL DAILY PRN PRN Reason: Constipation Last Admin: 08/16/16 09:24 Dose: 10 mg Dorzolamide HCl (Trusopt) 1 drops LEFT EYE DAILY [facility] Last Admin: 08/22/16 08:39 Dose: 1 drops Enoxaparin Sodium (Lovenox) 80 mg SQ Q12HR [facility] Last Admin: 08/22/16 08:39 Dose: 80 mg Insulin Human Regular 100 unit (/ Sodium Chloride) 101 mls @ 0 mls/hr IV .Q0M PRN; Titrate PRN Reason: OPEN HEART Last Infusion: 08/22/16 10:10 Dose: 3.5 mls/hr Ceftazidime 2 gm/ Sodium (Chloride) 100 mls @ 100 mls/hr IVPB Q12HR [facility] Last Admin: 08/22/16 08:39 Dose: 100 mls/hr Dextrose/Water (Dextrose 5%-Water Iv Soln) 1,000 mls @ 75 mls/hr IV .[id number] [facility] Last Admin: 08/22/16 10:12 Dose: 75 mls/hr Latanoprost (Xalatan 0.005%) 1 drops BOTH EYES HS [facility] Last Admin: 08/21/16 21:40 Dose: 1 drops Magnesium Hydroxide (Milk Of Magnesia) 2,400 mg PO BID PRN PRN Reason: Constipation Last Admin: 08/16/16 09:22 Dose: 2,400 mg Metoprolol Tartrate (Lopressor) 5 mg IVP Q6HR [facility] Last Admin: 08/22/16 06:08 Dose: 5 mg Miscellaneous Information (Magnesium Per Protocol) 1 each MISCELLANE DAILY PRN ; Protocol PRN Reason: Per Protocol Miscellaneous Information (Phosphorus Per Protocol) 1 each MISCELLANE DAILY PRN ; Protocol PRN Reason: Per Protocol Miscellaneous Information (Potassium Per Protocol) 1 each MISCELLANE DAILY PRN ; Protocol PRN Reason: Per Protocol Mupirocin (Bactroban Oint) 1 applic TOPICAL BID [facility] Last Admin: 08/22/16 08:40 Dose: 1 applic Naloxone HCl (Narcan) 0.2 mg IV Q2M PRN PRN Reason: Opioid Reversal Nitroglycerin (Nitrostat) 0.4 mg SUBLINGUAL Q5M PRN PRN Reason: Chest Pain Nystatin (Mycostatin Oral Susp) 500,000 unit PO QID [facility] Last Admin: 08/22/16 10:12 Dose: 500,000 unit Ondansetron HCl (Zofran) 4 mg IVP Q6HR PRN PRN Reason: Nausea And Vomiting Pantoprazole Sodium (Protonix) 40 mg IVP DAILY [facility] Last Admin: 08/22/16 08:39 Dose: 40 mg Prednisolone Acetate (Pred Forte 1%) 1 drops LEFT EYE MOTH [facility] Last Admin: 08/19/16 17:00 Dose: 1 drops Plan: 1. Will continue to hold statin secondary to elevated liver enzymes AST 101, ALT 75. 2. Continue amiodarone 200 mg by mouth daily for atrial fibrillation prophylaxis. 3. Continue Lovenox secondary to history of DVT. 4. Dobhoff tube will need to be placed for failed swallow evaluation and for nutrition needs. 5. Pulmonary Management per Dr Lazo, wean O2 as tolerated. Encourage use of his incentive spirometry every hour while awake. 6. Nystatin swish and spit 500,000 units by mouth 4 times a day added by Dr. Lazo. 7. Antibiotics management per pulmonary medicine/infectious disease Sputum culture positive for Serratia marcescens 8. Daily labs, chest x-rays. 9. GI/DVT prophylaxis. 10. Increase activity as tolerated, physical therapy in place and following. 11. More recommendations as patient progresses. <Habib,Ramin - Last Filed: 08/22/16 11:58> Progress Note - Text The patient was seen and examined. I agree with the above assessment and plan. The patient was extubated yesterday and is alert, oriented, and moving all extremities this morning. However, he does remain significantly debilitated. He did fail his swallow test. Place a Dobbhoff for nutrition and administration of oral medications. We'll continue to wean his oxygen as tolerated. We will sit him up in a cardiac chair. He is currently on antibiotics as directed by infectious disease. He remains on Lovenox secondary to his history of DVT.
--- NOTE | 2016-08-22 11:57 | PN ---
Angel Michele is an 80-year-old male patient with known coronary artery grafting and after a prolonged intubation he is now extubated today. He is following commands. He is unable to swallow. His pulse rate is in the 70s, sinus rhythm. Blood pressure is 103/51 mmHg. Breath sounds are reduced bilaterally from poor respiratory effort. Heart sounds are irregular. ABDOMEN: Soft. EXTREMITIES: Warm. IMPRESSION: 1. Coronary artery disease, status post coronary artery bypass grafting. 2. Chronic respiratory failure. 3. Difficulty weaning after surgery. 4. Pneumonitis being treated. 5. History of paroxysmal atrial fibrillation, currently sinus rhythm. Suggest: Continue medications IV version for now and once his NG tube/OG tube is placed, then medications will be changed to oral.
[2016-08-22 11:59] LABS: Glucose,Whole Blood 118 mg/dL (75-99)
--- NOTE | 2016-08-22 12:06 | XR ---
EXAMINATION TYPE: XR chest 1V portable DATE OF EXAM: 08/22/2016 COMPARISON: Prior chest x-ray 22 Aug 2016 at earlier time. HISTORY: Dobbhoff tube placement TECHNIQUE: frontal view of the chest is obtained on 2 images. FINDINGS: Lung volumes are low. Technique is somewhat limited. Right-sided PICC line is present. Pat ient is post median sternotomy. Distal tip of the Dobbhoff tube is present in the stomach. IMPRESSION: Dobbhoff tube within the stomach.
--- NOTE | 2016-08-22 13:29 | P.PN ---
Subjective Principal diagnosis: Status post CABG postoperative day # 9 80-year-old male patient, complaining of exertional dyspnea over the past several months. The patient denied having any chest pain. 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 The patient was found to have occluded right coronary artery with collaterals filling from the left. The patient was found to have critical disease involving the left main coronary artery and critical disease involving diffuse marginal branch of circumflex and proximal LAD. Based on this, coronary artery bypass surgery was recommended. The patient was seen by cardiothoracic surgery and the tentative plan to undergo surgery on this patient is on Tuesday. The preoperative echocardiogram showed a preserved LV function with an ejection fraction of 50-55%. No evidence of any pulmonary hypertension. No evidence of any valvular abnormalities. There is evidence of hypertensive heart disease with concentric left ventricular hypertrophy. Chest x-ray shows no acute cardio pulmonary process. He has history of pulmonary embolism and DVT and the patient has been maintained on anticoagulation on outpatient basis with warfarin. On today's evaluation of 08/11/2016 the patient is stable. The patient has no specific complaints. The patient is using his incentive spirometer. The patient was found to have chronic thrombocytopenia and for that reason a hematology consultation was obtained. History of any chest pain. He remains on IV heparin. Awaiting surgery on Tuesday. A bedside spirometry is still to be done. On 08/13/2016 I'm seeing this patient following his coronary bypass surgery. The patient underwent the surgery without any major complication. I discussed the case with the thoracic surgeon and the intraoperative course was essentially uncomplicated. The patient currently is intubated on mechanical ventilator. He is still sedated. He is hemodynamically stable. He is on a nitroglycerin and Cleviprex Drip for tight blood pressure control. The patient' s cardiac output is at 6.3 with an index of 2.8. PA pressures 29/17. The patient is also has his chest tubes in place with total amount of output being low at this point despite his underlying thrombocytopenia. He is also on an insulin drip at 40 units an hour for blood sugar control. Chest x-ray shows adequate expansion of both lungs and the chest tubes, ET tube and the Savage-Laya catheter in place. The blood gases showed a pH of 7.31 with a pCO2 of 48 and pO2 of 115 and it was not an FiO2 of 100% and I wean down the FiO2 down to 70% and the saturation is currently above 95%. The patient is also on assist control mode of ventilation with a PEEP of 5 and FiO2 of 70% with a tidal volume of 550. His rate is at 12. Postoperative platelet counts is at 42,000. Hemoglobin is at 10.9. The patient has not required any platelet transfusions. On 08/14/2016 the patient remains intubated on a mechanical ventilator. We failed to wean and extubate this patient yesterday because of oxygenation problems. This morning, the patient remained on assist control mode at the rate of 12, tidal volume 500, FiO2 of 60% and a PEEP of 5. The most recent blood gases showed a pH of 7.44 with a pCO2 of 24 and pO2 of 67. Chest x-ray is showing regular postsurgical changes with a mediastinal and the pleural chest tubes in place, ET tube is in a good location. The patient hemodynamically stable. He remains on a combination of nitroglycerin and Cleviprex drip for blood pressure control. His cardiac output as above 7 and the index is at 3.5. Is producing adequate amount of urine output. He remains sedated with Diprivan which is running at 30 mics. Nitroglycerin drip is running at 5 mics per minute and the Cleviprex is at 60 mg an hour. The patient is also on insulin drip at 10 units an hour. Output from the chest tubes have been 20 mL an hour. Meanwhile the patient had developed an acute kidney injury with a creatinine being up to 1.3. The bicarb level is down to 16 and the patient has a informed of non-anion gap metabolic acidosis. On 08/15/2016, the patient remains intubated. I was unable to wean this patient off the mechanical ventilator for several reasons. First and foremost, the patient was having borderline oxygenation. At the later stage, the patient started acting septic where he started having chills and fever and purulent foul -smelling respiratory secretions were also suctioned from his orotracheal tube. Based on all this, cultures and pain and the patient was started on IV Fortaz. Meanwhile, the patient was given IV fluids, overnight he received a bolus of normal saline 1 L and 2 boluses of albumin 12.5 g which improved his urine output. At this point in time, the patient is postop day #2. He is resting comfortably in bed. He is sedated with Diprivan and is calm and comfortable. He is an assist-control mode of ventilation and the most recent vent settings include an assist-control of 12, tidal volume of 600, FiO2 of 70% and a PEEP of 8. The most recent blood gases showed a pH of 7.47 with a pCO2 of 30 and pO2 of 78. Nevertheless, his pulse ox currently on the monitor is at 99% and FiO2 has been drop down to 60% and we will gradually weaning it down to maintain a saturation above 95%. He is afebrile for now. He still has a right IJ Savage-Laya catheter and hemodynamic parameters show a cardiac output of 6 with an index of 2.7. The patient's white cell count is not elevated at 5.7. He will was stable at 10.6. Renal function is impaired with a creatinine of 1.4. He is off the Catapres drip. He is off the nitroglycerin drip. He is producing around 20-30 mL of urine output on an hourly basis and he has gained significant amount of weight and there is third spacing. Chest x-ray shows increased tone vessel markings. ET tube and NG tube are all in good location. The KRAL drain in the left lower extremity is in place and the total amount of output is 10 mL. The 2 mediastinal chest tubes in the left pleural chest tubes are also in place with minimal amount of output. Platelet count is stable at 40 ,000. He insulin drip is on hold for now. On 08/16/2016, patient remains intubated, his gases are very marginal, remains on FiO2 of 70%, PEEP is now up to 12, chest x-ray shows what looks like a right lower lobe pneumonia and consolidation in the medial aspect of the right lower lobe. Patient is on broad-spectrum antibiotics coverage. Ventilator settings were reviewed, she is presently on FiO2 of 70%, PEEP of 12, tidal volume of 550 assist control rate of 14. Labs were reviewed, WBC count is 11.9 hemoglobin is 10.9. ABG showed a pO2 of 61 pCO2 of 36 pH of 7.42. Basic metabolic profile is normal however his BUN is 41 and creatinine is 1.40 baseline creatinine was 1.0 on 08/13. Chest x-ray showed cardiomegaly, worsening by basilar airspace disease especially at the right base and small pleural effusions noted. Patient is receiving Lasix daily. Remains on propofol drip. And fully sedated. On 08/17/2016, patient seems to have made a significant improvement from the pulmonary perspective. I was able to cut down his FiO2 to 45%, PEEP is down to 5, tidal volume is 550, and assist control rate is 14. ABG this morning showed a pO2 of 84 pCO2 of 34 pH of 7.42. However when attempted to wean the patient, he went into atrial fibrillation with RVR, hence I decided to hold back on weaning and placed back on assist control mode of mechanical ventilation. CBC showed a hemoglobin of 10.4 WBC count is 8.3. Basic metabolic profile is normal BUN is 58 creatinine is 1.60. Yesterday, patient was placed on Lovenox at 80 mg subcu every 12 hours, and this is mostly to replace his Coumadin since the patient had previous history of hypercoagulable state and pulmonary embolism , and I felt it would be worthwhile placing him on Lovenox instead of Coumadin for the time being. This was also discussed with the surgeon on the case. Platelets remain about the same today compared to yesterday. Not much of a change but they have always been low. On 08/18/2016, patient remains on mechanical ventilation, sedated, patient failed weaning yesterday because of tachycardia and increased shortness of breath upon initial weaning trial. Today however I plan to discontinue propofol , and give him another weaning trial today. Patient seems to be hemodynamically stable. Heart rate is in the 60s. Vent settings tidal volume of 550 assist control of 14 FiO2 is 45% PEEP is 5. ABG showed a pO2 of 97 pCO2 of 35 pH of 7.46. Chest x-ray showed by basilardisease, and small pleural effusions right more so than left. Sputum has been positive for Serratia marcescens, patient remains on Fortaz. The Serratia marcescens is sensitive to Fortaz. CBC is showing WBC count of 6.2 hemoglobin 9.5. Electrolytes were noted to be normal. BUN is 49 creatinine is 1.42. Patient remains on Lovenox every 12 hours. On 08/19/2016, patient remains on mechanical ventilation, off all sedatives and narcotics, however the patient does not seem to be waking up appropriately as expected. Opens eyes at the most, does not follow any instructions, and this is in spite of holding sedation for the last 24 hours. He did receive 1 dose of Ativan last night for restlessness. At any rate I have recommended a CT of the brain today, and I recommended that we continue to hold all narcotics and sedatives, and this was the patient is awake and follows instructions, we will proceed with rapid weaning and possibly extubation today. However his mental status seems to be the main reason for not extubating the patient. Ventilator settings are basically the same, he remains on tidal volume of 550, assist control of 14, FiO2 of 45% and PEEP is 5. ABG showed a pO2 of 123 pCO2 of 30 and pH of 7.51. WBC count is 4.2 hemoglobin is 9.6. Renal profile is improving , BUN is 44 creatinine is 1.22. Sodium is a bit on the high side 146. On 08/20/2016, patient remains off sedation, he did receive 1 mg of Ativan last night for extreme tachypnea with respiratory rate going as high as 40. However patient settled down easily with Ativan, and follow-up ABG and chest x-ray this morning are showing definite improvement overall. Patient remains on mechanical ventilation. Ventilator settings are about the same, and I was able to cut down the PEEP from 8-5. Remains on 50% FiO2. Assist control rate is 12 and tidal volume is 550. ABG showed a pO2 of 122 pCO2 of 29 pH of 7.50. Electrolytes continued to show hypernatremia and BUN of 42 creatinine of 1.20, patient is receiving free water via nasogastric tube to correct his hypernatremia. Mentation serrano, patient seems to be a bit more awake today compared to the previous days. At least he is opening his eyes upon verbal stimulation, he is following simple instructions like wiggling toes, squeezing hands, and sticking tongue upon request. Seems to be very appropriate. But remained generally weak. And falls asleep easily if left alone. Reevaluated on 08/21/2016, patient remains off sedation, he seems to be a bit more awake today compared to the last few days. Patient is still responding to all verbal stimuli, seems to be generally weak, but again this is the best I have seen him in the last 7 days. Patient remains on mechanical ventilation, ventilator settings are basically the same. His ABG showed a pO2 of 104 pCO2 of 30 pH of 7.50 chest x-ray showed mostly by basilar atelectasis right more so than left. CBC showed a hemoglobin of 9.9 electrolytes showed elevated sodium of 150 which I plan to correct with free water flushes via nasogastric tube. BUN is 42 creatinine is 1.09. Patient is relatively asymptomatic except for being generally weak. Reevaluated on 08/22/2016, patient tolerated the extubation very well over the last 24 hours. He seems to be very appropriate, generally weak, but not as lethargic as he was over the last few days. Patient agreed to have a Dobbhoff tube placed and this was placed successfully, plan to start the Dobbhoff tube feeding to improve his nutritional status. Labs showed WBC count of 6.7 hemoglobin is 9.9. Sodium is down to 149 BUN is 38 creatinine is 1.11. Chest x -ray this morning showed low lung volumes, mild interstitial edema, no evidence of pneumonia. Objective - Vital Signs Vital signs: Vital Signs Temp 98 F 08/22/16 12:00 Pulse 68 08/22/16 12:00 Resp 21 08/22/16 12:00 BP 135/59 08/22/16 12:00 Pulse Ox 96 08/22/16 12:00 Intake & Output 08/21/16 08/22/16 08/22/16 18:59 06:59 18:59 Intake Total 836.441 334.784 449.333 Output Total 625 614 276 Balance 211.441 -279.216 173.333 Weight 117.4 kg 117.3 kg 117.3 kg Intake: IV 616 306 275 Dextrose 5% in Water 1, 450 300 175 000 ml @ 50 mls/hr IV . Q20H [facility]OR Rx#:[id number] cefTAZidime 2 gm In 100 100 Sodium Chloride 0.9% 100 ml @ 100 mls/hr IVPB Q12HR [facility]OR Rx#:[id number] pressure bag 66 6 Intake, IV Titration 100.441 28.784 174.333 Amount Dextrose 5% in Water 1, 150 000 ml @ 75 mls/hr IV . [id number] [facility]OR Rx#:[id number] Insulin Regular 100 unit 60.441 28.784 24.333 In Sodium Chloride 0.9% 100 ml @ Titrate IV .Q0M PRN Rx#:[id number] Lactated Ringers 1,000 ml 40 @ 10 mls/hr IV .Q24H IGOR Rx#:[id number] Tube Feeding 120 Output: Drainage 20 Left Calf 20 Urine 603 610 275 Stool 2 4 1 Other: Voiding Method Indwelling Catheter Indwelling Catheter Indwelling Catheter # Voids 1 # Bowel Movements 1 ABP, PAP, CO, CI - Last Documented Arterial Blood Pressure 144/51 Pulmonary Artery Pressure 41/23 Cardiac Output 7.4 Cardiac Index 3.3 - Exam Physical Exam: Revealed an 80-year-old white male on mechanical ventilation, in no form of respiratory distress. Patient is presently on few liters nasal cannula. HEENT:[Neck is supple.] [No neck masses.] [No thyromegaly.] [No JVD.] There is evidence of oropharyngeal thrush, hence nystatin swish and swallow was initiated. Chest: [Diminished breath sounds at the bases, no crackles at the bases no rhonchi, no wheezes.] Cardiac Exam: [Normal S1 and S2, no S3 gallop, no murmur.] Abdomen: [Soft, nontender, no megaly, no rebound, no guarding, normal bowel sounds.] Extremities: [No clubbing, 1+ bipedal edema, no cyanosis.] Neurological Exam: No focal neurologic deficit, however the patient is noted to be generally weak. - Labs CBC & Chem 7: 08/22/16 03:10 08/22/16 03:10 Labs: Abnormal Lab Results - Last 24 Hours (Table) 08/21/16 08/21/16 08/21/16 Range/Units 14:07 16:21 18:08 RBC (4.30-5.90) m/uL Hgb (13.0-17.5) gm/dL Hct (39.0-53.0) % MCV (80.0-100.0) fL Plt Count (150-450) k/uL Sodium (137-145) mmol/L Chloride (98-107) mmol/L BUN (9-20) mg/dL Glucose (74-99) mg/dL POC Glucose (mg/dL) 126 H 125 H 130 H (75-99) mg/dL Calcium (8.4-10.2) mg/dL Magnesium (1.6-2.3) mg/dL Total Bilirubin (0.2-1.3) mg/dL AST (17-59) U/L ALT (21-72) U/L Alkaline Phosphatase (38-126) U/L Total Protein (6.3-8.2) g/dL Albumin (3.5-5.0) g/dL 08/21/16 08/22/16 08/22/16 Range/Units 21:41 01:30 03:10 RBC 3.02 L (4.30-5.90) m/uL Hgb 9.9 L (13.0-17.5) gm/dL Hct 30.8 L (39.0-53.0) % MCV 102.0 H (80.0-100.0) fL Plt Count 82 L (150-450) k/uL Sodium (137-145) mmol/L Chloride (98-107) mmol/L BUN (9-20) mg/dL Glucose (74-99) mg/dL POC Glucose (mg/dL) 119 H 103 H (75-99) mg/dL Calcium (8.4-10.2) mg/dL Magnesium (1.6-2.3) mg/dL Total Bilirubin (0.2-1.3) mg/dL AST (17-59) U/L ALT (21-72) U/L Alkaline Phosphatase (38-126) U/L Total Protein (6.3-8.2) g/dL Albumin (3.5-5.0) g/dL 08/22/16 08/22/16 08/22/16 Range/Units 03:10 04:11 06:11 RBC (4.30-5.90) m/uL Hgb (13.0-17.5) gm/dL Hct (39.0-53.0) % MCV (80.0-100.0) fL Plt Count (150-450) k/uL Sodium 149 H (137-145) mmol/L Chloride 118 H (98-107) mmol/L BUN 38 H (9-20) mg/dL Glucose 123 H (74-99) mg/dL POC Glucose (mg/dL) 124 H 124 H (75-99) mg/dL Calcium 7.9 L (8.4-10.2) mg/dL Magnesium 2.6 H (1.6-2.3) mg/dL Total Bilirubin 1.5 H (0.2-1.3) mg/dL AST 101 H (17-59) U/L ALT 75 H (21-72) U/L Alkaline Phosphatase 153 H (38-126) U/L Total Protein 4.8 L (6.3-8.2) g/dL Albumin 2.1 L (3.5-5.0) g/dL 08/22/16 08/22/16 08/22/16 Range/Units 07:52 09:51 11:56 RBC (4.30-5.90) m/uL Hgb (13.0-17.5) gm/dL Hct (39.0-53.0) % MCV (80.0-100.0) fL Plt Count (150-450) k/uL Sodium (137-145) mmol/L Chloride (98-107) mmol/L BUN (9-20) mg/dL Glucose (74-99) mg/dL POC Glucose (mg/dL) 118 H 125 H 118 H (75-99) mg/dL Calcium (8.4-10.2) mg/dL Magnesium (1.6-2.3) mg/dL Total Bilirubin (0.2-1.3) mg/dL AST (17-59) U/L ALT (21-72) U/L Alkaline Phosphatase (38-126) U/L Total Protein (6.3-8.2) g/dL Albumin (3.5-5.0) g/dL Assessment and Plan Plan: 1 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 The patient underwent coronary bypass surgery and currently is postop day 9 2 postoperative hypoxemia with difficulties in weaning due to ongoing oxygenation problem. This was felt to be related to air space disease, and possible pneumonia involving the right lower lobe mostly. Could also be acute lung injury related. 3diabetes mellitus on insulin drip for blood sugar control 4 post thoracotomy respiratory failure, patient was difficult to wean until yesterday and he weaned and extubated uneventfully. 5 previous history of DVT and pulmonary embolism , maintained on warfarin outpatient basis, patient will be restarted on Lovenox 80 mg subcu every 12 hours beginning today. In the meantime we'll continue to monitor his low platelets. Patient has chronic thrombocytopenia to begin with. 6 thrombocytopenia him a stable with a platelet count, without evidence of any acute bleeding 7 acute kidney injury, creatinine is down to 1. 11, hypernatremia, being corrected with free water flushes. 8 postoperative respiratory failure, resolved, patient is now off mechanical ventilation. Recommendation: Since the patient tolerated the extubation well over the last 24 hours, will start initiating more mobilization of the patient, we'll continue free water flushes, we'll address his oropharyngeal thrush, nystatin swish and swallow was initiated. a Dobbhoff tube was placed uneventfully, and we'll continue to monitor his fluid status and his electrolytes. Early ambulation would definitely help. Patient seems to be generally weak. Prognosis remains guarded, critical care time is 33 minutes. Time with Patient: Greater than 30
[2016-08-22] MEDS: ASPIRIN 81 MG CHEW PO SCH (13:32)
[2016-08-22] MEDS: AMIODARONE 200 MG TAB PO SCH (13:33)
[2016-08-22 14:39] LABS: Glucose,Whole Blood 112 mg/dL (75-99)
[2016-08-22 15:52] LABS: Glucose,Whole Blood 136 mg/dL (75-99)
[2016-08-22] MEDS: INSULIN REGULAR 100 UNIT in SODIUM CHLORIDE 0.9% 100 ML IV PRN (15:57)
[2016-08-22 16:52] LABS: Glucose,Whole Blood 138 mg/dL (75-99)
[2016-08-22 18:07] LABS: Glucose,Whole Blood 123 mg/dL (75-99)
--- NOTE | 2016-08-22 20:26 | PN ---
DATE OF SERVICE: 08/22/2016 This 80-year-old gentleman who was admitted after CAD, CABG also had diabetes mellitus. Also the patient had swallow test. The patient started on Dobhoff catheter. The patient still on insulin drip 3 to 4 units per hour. Sensorium improved significantly. The patient is still mildly confused. The patient is doing about tube feeds at 500 mL on incentive spirometry. The patient is being closely monitored. The patient being followed closely by cardiology and pulmonology and cardiothoracic surgery. Past medical history reviewed. REVIEW OF SYSTEMS: CARDIOVASCULAR: No angina. No palpitations. RESPIRATORY: As mentioned earlier. GI: As mentioned earlier. : No dysuria. Current medications include: 1. Tylenol 650 q.6 p.r.n. 2. DuoNeb q.i.d. and p.r.n. 3. Cordarone 200 milligrams daily. 4. Aspirin 81 mg daily. 5. Lipitor 40 mg. 7. Dulcolax 10 mg daily. 8. Ceftazidime 2 grams IV b.i.d. 9. Trusopt daily. 10. Lovenox 40 mg subcu b.i.d. 11. Milk of magnesia. 12. Lopressor. 13. Narcan. 14. Mycostatin. 15. Zofran. 16. Protonix. Patient is alert and oriented x2. Pulse 58, blood pressure ntd, respiratory rate 20, temperature 98 degrees, pulse ox 98% on 2 L. HEENT: Conjunctivae normal. Oral mucosa moist. NECK: No jugular venous distention. No carotid bruit. No lymph node enlargement. CARDIOVASCULAR: S1, S2 muffled. RESPIRATORY: Breath sounds diminished at the bases. A few scattered rhonchi. Expiratory wheezing. ABDOMEN: Soft, nontender. LEGS: No edema. No swelling. CENTRAL NERVOUS SYSTEM: No focal deficits. LABS: Hemoglobin 9.9. Otherwise, sodium is 149. ASSESSMENT: 1. Status post coronary artery disease, triple vessel disease and coronary artery bypass grafting. 2. Diabetes mellitus type 2 on insulin drip. 3. Failed swallow on Dobbhoff feeding. 4. 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 5. Hyperlipidemia. 6. degenerative joint disease in multiple joints bilaterally. 7. Benign prostatic hypertrophy is stable. 8. 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 9. Postoperative ventilator support. 10. Postoperative acute respiratory failure secondary to pneumonia, hospital acquired. 11. gram negative bacilli and Serratia Marcescens. 12. Elevated LFTs. RECOMMENDATIONS AND DISCUSSION: This 80-year-old gentleman who presented with multiple complex medical issues, we will monitor the patient closely. Continue the current medications. Continue symptomatic treatment. The patient started on Dobhoff. I recommend continue with insulin drip and once the patient is taking p.o. medications and may be discontinued. Otherwise, continue the reset of the medications. Incentive spirometry. Monitor lytes closely. Further recommendations to follow. MTDD
[2016-08-22 20:28] LABS: Glucose,Whole Blood 132 mg/dL (75-99)
[2016-08-22] MEDS: LATANOPROST 0.005% OPHTH DROPS 2.5 ML BTL BOTH EYES SCH (20:29)
[2016-08-22 22:08] LABS: Glucose,Whole Blood 117 mg/dL (75-99)
[2016-08-23 00:09] LABS: Glucose,Whole Blood 140 mg/dL (75-99)
[2016-08-23] MEDS: METOPROLOL TARTRATE 5 MG/5 ML VIAL IVP SCH ×2 (00:10→05:25)
[2016-08-23 02:15] LABS: Glucose,Whole Blood 133 mg/dL (75-99)
[2016-08-23 04:53] LABS: Glucose,Whole Blood 141 mg/dL (75-99)
[2016-08-23 05:28] LABS: ALT 74 U/L (21-72); AST 101 U/L (17-59); Alkaline Phosphatase 180 U/L (38-126); Anion Gap 5 mmol/L; Blood Urea Nitrogen 36 mg/dL (9-20); Calcium 7.9 mg/dL (8.4-10.2); Carbon Dioxide 27 mmol/L (22-30); Chloride 116 mmol/L (98-107); Glucose 144 mg/dL (74-99); Magnesium 2.5 mg/dL (1.6-2.3); Non-African American GFR(MDRD) >60 (>60 ml/min/1.73 sqM); Phosphorous 2.7 mg/dL (2.5-4.5); Potassium 3.5 mmol/L (3.5-5.1); Sodium 148 mmol/L (137-145); Total Bilirubin 1.2 mg/dL (0.2-1.3); Total Protein 4.7 g/dL (6.3-8.2)
[2016-08-23 05:41] LABS: Basophils % (A) 0 %; CHCM 32.5; Eosinophils # (A) 0.2 k/uL (0-0.7); Eosinophils % (A) 3 %; HCT 30.5 % (39.0-53.0); HDW 3.29; HGB 9.9 gm/dL (13.0-17.5); Hypochromasia Slight; Luc # (Auto) 0.06; Luc % (Auto) 1; Lymphocytes # (A) 1.1 k/uL (1.0-4.8); Lymphocytes % (A) 18 %; MCH 32.1 pg (25.0-35.0); MCHC 32.3 g/dL (31.0-37.0); MCV 99.3 fL (80.0-100.0); Macrocytosis Slight; Monocytes # (A) 0.3 k/uL (0-1.0); Monocytes % (A) 5 %; Neutrophils # (A) 4.4 k/uL (1.3-7.7); Neutrophils % (A) 73 %; RBC 3.08 m/uL (4.30-5.90); RDW 14.6 % (11.5-15.5); WBC 6.1 k/uL (3.8-10.6); WBC (Perox) 6.41
[2016-08-23 06:02] LABS: Glucose,Whole Blood 140 mg/dL (75-99)
[2016-08-23 06:20] LABS: Manual Review Performed
[2016-08-23] MEDS: POTASSIUM CHLORIDE ORAL LIQUID 40 MEQ/30 ML CUP NG-TUBE SCH ×2 (06:38→08:11)
--- NOTE | 2016-08-23 07:16 | XR ---
EXAMINATION TYPE: XR chest 1V portable DATE OF EXAM: 08/23/2016 COMPARISON: Prior chest x-ray 22 Aug 2016 HISTORY: Postop cardiac surgery TECHNIQUE: Single frontal view of the chest is obtained. FINDINGS: Dobbhoff tube is present, distal tip is not seen. Patient is post median sternotomy. Right -sided PICC line is stable. The heart is enlarged. Lung volumes are low. No evident pneumothorax or p leural effusion. Central vascularity is prominent. There is increased to the interstitium. IMPRESSION: Low lung volume. Difficult to exclude volume overload, pulmonary venous hypertension and interstitial edema, follow-up recommended
[2016-08-23] MEDS: DEXTROSE 5% IN WATER 1,000 ML IV SCH ×2 (07:36→08:13)
[2016-08-23] MEDS ORDERED: POTASSIUM CHLORIDE 20 MEQ in WATER FOR INJECTION 1 100ML.BAG IVPB SCH (08:00)
[2016-08-23 08:01] LABS: Glucose,Whole Blood 141 mg/dL (75-99)
[2016-08-23] MEDS: ENOXAPARIN 80 MG/0.8 ML SYRINGE SQ SCH ×2 (08:11→20:43)
[2016-08-23] MEDS: ASPIRIN 81 MG CHEW PO SCH (08:12)
[2016-08-23] MEDS: PANTOPRAZOLE 40 MG/10 ML VIAL IVP SCH (08:12)
[2016-08-23] MEDS: NYSTATIN 100,000 UNIT/ML SUSP 500,000 UNIT/5 ML CUP PO SCH ×4 (08:12→21:06)
[2016-08-23] MEDS: AMIODARONE 200 MG TAB PO SCH (08:12)
[2016-08-23] MEDS: DORZOLAMIDE HCL 2% DROPS 10 ML BTL LEFT EYE SCH (08:12)
[2016-08-23 10:25] LABS: Glucose,Whole Blood 118 mg/dL (75-99)
--- NOTE | 2016-08-23 10:47 | PN ---
DATE OF SERVICE: 08/23/2016 An 80-year-old male patient who has coronary artery disease, coronary artery bypass grafting, and just got extubated yesterday after prolonged weaning process. He has pneumonitis. His heart rate is normal with occasional PACs. He is sleeping comfortably. Breath sounds are reduced bilaterally. Heart sounds soft. Extremities are warm. IMPRESSION: Coronary artery disease, status post coronary artery grafting, pneumonitis, and prolonged wean. Suggest we stop all oral medications. He is on amiodarone 200 mg p.o. daily and there should be a stop order for this and this should be stopped in 4 weeks completely. Atorvastatin and aspirin to continue. DVT prophylaxis to be continue. Should be back on metoprolol 25 mg twice daily.
[2016-08-23] MEDS: BISMUTH SUBSALICYLATE 4,192 MG/240 ML BOTTLE PO PRN ×3 (11:21→21:54)
--- NOTE | 2016-08-23 11:50 | P.PN ---
<Juliana Albright - Last Filed: 08/23/16 11:50> Subjective Principal diagnosis: Multivessel coronary artery disease POD #10 coronary artery bypass grafting 2 vessels (left internal mammary artery to left anterior descending artery, saphenous vein graft to obtuse marginal artery). Endoscopic vein harvest left greater saphenous vein. Epi- aortic ultrasound. Transesophageal echocardiogram. Postoperative acute hypoxic respiratory failure requiring mechanical ventilation , failure to wean secondary to Serratia marcescens pneumonia, an unexpected postoperative complication. Postoperative paroxysmal atrial fibrillation, expected outcome, treated with amiodarone. Patient was extubated and pleural chest tube discontinued over the weekend. Currently awake and alert in no apparent distress, failed swallow eval twice. Currently receiving tube feedings through Dobbhoff. Slow progress. Objective - Vital Signs Vital signs: Vital Signs Temp 98.4 F 08/23/16 04:00 Pulse 61 08/23/16 07:00 Resp 21 08/23/16 07:00 BP 120/61 08/23/16 07:00 Pulse Ox 95 08/23/16 07:00 Intake & Output 08/22/16 08/23/16 08/23/16 18:59 06:59 18:59 Intake Total 0040.675 2087.525 128 Output Total 513 527 30 Balance 484.957 3482.525 98 Weight 117.3 kg 117.6 kg Intake: IV 275 100 Dextrose 5% in Water 1, 175 000 ml @ 50 mls/hr IV . Q20H [facility] Rx#:[id number] cefTAZidime 2 gm In 100 100 Sodium Chloride 0.9% 100 ml @ 100 mls/hr IVPB Q12HR [facility] Rx#:[id number] Intake, IV Titration 641.733 852.525 88 Amount Dextrose 5% in Water 1, 600 825 75 000 ml @ 75 mls/hr IV . [id number] [facility] Rx#:[id number] Insulin Regular 100 unit 41.733 27.525 13 In Sodium Chloride 0.9% 100 ml @ Titrate IV .Q0M PRN Rx#:[id number] Tube Feeding 100 360 40 Other 200 600 Output: Urine 511 527 30 Stool 2 Other: Voiding Method Indwelling Catheter Indwelling Catheter # Bowel Movements 1 2 ABP, PAP, CO, CI - Last Documented Arterial Blood Pressure 144/51 Pulmonary Artery Pressure 41/23 Cardiac Output 7.4 Cardiac Index 3.3 - Constitutional General appearance: Present: cooperative, no acute distress, obese - Respiratory Details: Lungs sounds diminished bilaterally. Respirations even, nonlabored. Currently 2 L nasal cannula with oxygen saturation 96%. Able to achieve 500 mL on his incentive spirometry. - Cardiovascular Details: S1, S2 present. Regular rate and rhythm, normal sinus rhythm, occasional sinus bradycardia on telemetry. Sternum stable. Heart hugger in place with patient having difficulty demonstrating appropriate use. Generalized edema present. Teds/SCDs present. A/V epicardial pacemaker wires present, grounded. - Gastrointestinal Gastrointestinal Comment(s): Abdomen soft, nontender, nondistended. Active bowel sounds 4 quadrants. Dobbhoff present. Tube feeding infusing at 40 mL per hour, goal is 65 mL per hour. - Genitourinary Genitourinary Comment(s): Thornton present draining clear, yellow urine. Approximately 30-60 mL/h overnight. - Integumentary Integumentary Comment(s): Anterior chest incision well approximated and covered with dry intact dressing. - Musculoskeletal Musculoskeletal: Present: generalized weakness - Psychiatric Psychiatric Comment(s): Alert and oriented to person and place, forgetful of month and year, reorients - Allied health notes Allied health notes reviewed: nursing - Labs CBC & Chem 7: 08/23/16 04:45 08/23/16 04:45 Labs: Abnormal Lab Results - Last 24 Hours (Table) 08/22/16 08/22/16 08/22/16 Range/Units 09:51 11:56 14:38 RBC (4.30-5.90) m/uL Hgb (13.0-17.5) gm/dL Hct (39.0-53.0) % Plt Count (150-450) k/uL Sodium (137-145) mmol/L Chloride (98-107) mmol/L BUN (9-20) mg/dL Glucose (74-99) mg/dL POC Glucose (mg/dL) 125 H 118 H 112 H (75-99) mg/dL Calcium (8.4-10.2) mg/dL Magnesium (1.6-2.3) mg/dL AST (17-59) U/L ALT (21-72) U/L Alkaline Phosphatase (38-126) U/L Total Protein (6.3-8.2) g/dL Albumin (3.5-5.0) g/dL 08/22/16 08/22/16 08/22/16 Range/Units 15:50 16:50 18:05 RBC (4.30-5.90) m/uL Hgb (13.0-17.5) gm/dL Hct (39.0-53.0) % Plt Count (150-450) k/uL Sodium (137-145) mmol/L Chloride (98-107) mmol/L BUN (9-20) mg/dL Glucose (74-99) mg/dL POC Glucose (mg/dL) 136 H 138 H 123 H (75-99) mg/dL Calcium (8.4-10.2) mg/dL Magnesium (1.6-2.3) mg/dL AST (17-59) U/L ALT (21-72) U/L Alkaline Phosphatase (38-126) U/L Total Protein (6.3-8.2) g/dL Albumin (3.5-5.0) g/dL 08/22/16 08/22/16 08/23/16 Range/Units 20:26 22:05 00:07 RBC (4.30-5.90) m/uL Hgb (13.0-17.5) gm/dL Hct (39.0-53.0) % Plt Count (150-450) k/uL Sodium (137-145) mmol/L Chloride (98-107) mmol/L BUN (9-20) mg/dL Glucose (74-99) mg/dL POC Glucose (mg/dL) 132 H 117 H 140 H (75-99) mg/dL Calcium (8.4-10.2) mg/dL Magnesium (1.6-2.3) mg/dL AST (17-59) U/L ALT (21-72) U/L Alkaline Phosphatase (38-126) U/L Total Protein (6.3-8.2) g/dL Albumin (3.5-5.0) g/dL 08/23/16 08/23/16 08/23/16 Range/Units 02:12 04:45 04:45 RBC 3.08 L (4.30-5.90) m/uL Hgb 9.9 L (13.0-17.5) gm/dL Hct 30.5 L (39.0-53.0) % Plt Count 115 L (150-450) k/uL Sodium 148 H (137-145) mmol/L Chloride 116 H (98-107) mmol/L BUN 36 H (9-20) mg/dL Glucose 144 H (74-99) mg/dL POC Glucose (mg/dL) 133 H (75-99) mg/dL Calcium 7.9 L (8.4-10.2) mg/dL Magnesium 2.5 H (1.6-2.3) mg/dL AST 101 H (17-59) U/L ALT 74 H (21-72) U/L Alkaline Phosphatase 180 H (38-126) U/L Total Protein 4.7 L (6.3-8.2) g/dL Albumin 2.0 L (3.5-5.0) g/dL 08/23/16 08/23/16 08/23/16 Range/Units 04:51 06:00 07:59 RBC (4.30-5.90) m/uL Hgb (13.0-17.5) gm/dL Hct (39.0-53.0) % Plt Count (150-450) k/uL Sodium (137-145) mmol/L Chloride (98-107) mmol/L BUN (9-20) mg/dL Glucose (74-99) mg/dL POC Glucose (mg/dL) 141 H 140 H 141 H (75-99) mg/dL Calcium (8.4-10.2) mg/dL Magnesium (1.6-2.3) mg/dL AST (17-59) U/L ALT (21-72) U/L Alkaline Phosphatase (38-126) U/L Total Protein (6.3-8.2) g/dL Albumin (3.5-5.0) g/dL - Imaging and Cardiology Chest x-ray: image reviewed Assessment and Plan (1) Diabetes Status: Acute (2) Hyperlipidemia Status: Acute (3) History of pulmonary embolus (PE) Status: Acute (4) History of deep vein thrombosis Status: Acute (5) Thrombocytopenia Status: Acute (6) Coronary artery disease Status: Acute (7) Postoperative acute respiratory failure Status: Acute (8) Pneumonia due to Serratia marcescens Status: Acute (9) Paroxysmal atrial fibrillation Status: Acute Plan: 1. Will continue hold statin secondary to elevated liver enzymes. Continue baby aspirin, Lopressor. 2. Continue amiodarone for atrial fibrillation prophylaxis 3. Continue Lovenox secondary to history of DVT. 4. Wean O2 as tolerated. Encourage incentive spirometry use. 5. Increase activity as tolerated. Physical therapy to follow. 6. Continue tube feedings until able to tolerate diet. Speech therapy to follow. 7. Antibiotics per pulmonary/ID. Sputum culture positive for Serratia marcescens 8. Daily labs, chest x-rays. 9. GI/DVT prophylaxis. 10. More recommendations as patient progresses. Time with Patient: Greater than 30 <Ramin Traore - Last Filed: 08/23/16 12:01> Objective - Vital Signs Vital signs: Vital Signs Temp 97.9 F 08/23/16 08:00 Pulse 65 08/23/16 11:00 Resp 19 08/23/16 11:00 BP 106/50 08/23/16 11:00 Pulse Ox 96 08/23/16 11:00 Intake & Output 08/22/16 08/23/16 08/23/16 18:59 06:59 18:59 Intake Total 7921.958 3596.525 809.4 Output Total 513 527 250 Balance 043.734 5512.525 559.4 Weight 117.3 kg 117.6 kg Intake: IV 275 100 100 Dextrose 5% in Water 1, 175 000 ml @ 50 mls/hr IV . Q20H [facility] Rx#:[id number] cefTAZidime 2 gm In 100 100 100 Sodium Chloride 0.9% 100 ml @ 100 mls/hr IVPB Q12HR [facility] Rx#:[id number] Intake, IV Titration 641.733 852.525 349.4 Amount Dextrose 5% in Water 1, 600 825 325 000 ml @ 75 mls/hr IV . [id number] [facility] Rx#:[id number] Insulin Regular 100 unit 41.733 27.525 24.4 In Sodium Chloride 0.9% 100 ml @ Titrate IV .Q0M PRN Rx#:[id number] Tube Feeding 100 360 160 Other 200 600 200 Output: Drainage 30 Left Calf 30 Urine 511 527 220 Stool 2 Other: Voiding Method Indwelling Catheter Indwelling Catheter Indwelling Catheter # Bowel Movements 1 2 1 ABP, PAP, CO, CI - Last Documented Arterial Blood Pressure 144/51 Pulmonary Artery Pressure 41/23 Cardiac Output 7.4 Cardiac Index 3.3 - Labs CBC & Chem 7: 08/23/16 04:45 08/23/16 04:45 Labs: Abnormal Lab Results - Last 24 Hours (Table) 08/22/16 08/22/16 08/22/16 Range/Units 11:56 14:38 15:50 RBC (4.30-5.90) m/uL Hgb (13.0-17.5) gm/dL Hct (39.0-53.0) % Plt Count (150-450) k/uL Sodium (137-145) mmol/L Chloride (98-107) mmol/L BUN (9-20) mg/dL Glucose (74-99) mg/dL POC Glucose (mg/dL) 118 H 112 H 136 H (75-99) mg/dL Calcium (8.4-10.2) mg/dL Magnesium (1.6-2.3) mg/dL AST (17-59) U/L ALT (21-72) U/L Alkaline Phosphatase (38-126) U/L Total Protein (6.3-8.2) g/dL Albumin (3.5-5.0) g/dL 08/22/16 08/22/16 08/22/16 Range/Units 16:50 18:05 20:26 RBC (4.30-5.90) m/uL Hgb (13.0-17.5) gm/dL Hct (39.0-53.0) % Plt Count (150-450) k/uL Sodium (137-145) mmol/L Chloride (98-107) mmol/L BUN (9-20) mg/dL Glucose (74-99) mg/dL POC Glucose (mg/dL) 138 H 123 H 132 H (75-99) mg/dL Calcium (8.4-10.2) mg/dL Magnesium (1.6-2.3) mg/dL AST (17-59) U/L ALT (21-72) U/L Alkaline Phosphatase (38-126) U/L Total Protein (6.3-8.2) g/dL Albumin (3.5-5.0) g/dL 08/22/16 08/23/16 08/23/16 Range/Units 22:05 00:07 02:12 RBC (4.30-5.90) m/uL Hgb (13.0-17.5) gm/dL Hct (39.0-53.0) % Plt Count (150-450) k/uL Sodium (137-145) mmol/L Chloride (98-107) mmol/L BUN (9-20) mg/dL Glucose (74-99) mg/dL POC Glucose (mg/dL) 117 H 140 H 133 H (75-99) mg/dL Calcium (8.4-10.2) mg/dL Magnesium (1.6-2.3) mg/dL AST (17-59) U/L ALT (21-72) U/L Alkaline Phosphatase (38-126) U/L Total Protein (6.3-8.2) g/dL Albumin (3.5-5.0) g/dL 08/23/16 08/23/16 08/23/16 Range/Units 04:45 04:45 04:51 RBC 3.08 L (4.30-5.90) m/uL Hgb 9.9 L (13.0-17.5) gm/dL Hct 30.5 L (39.0-53.0) % Plt Count 115 L (150-450) k/uL Sodium 148 H (137-145) mmol/L Chloride 116 H (98-107) mmol/L BUN 36 H (9-20) mg/dL Glucose 144 H (74-99) mg/dL POC Glucose (mg/dL) 141 H (75-99) mg/dL Calcium 7.9 L (8.4-10.2) mg/dL Magnesium 2.5 H (1.6-2.3) mg/dL AST 101 H (17-59) U/L ALT 74 H (21-72) U/L Alkaline Phosphatase 180 H (38-126) U/L Total Protein 4.7 L (6.3-8.2) g/dL Albumin 2.0 L (3.5-5.0) g/dL 08/23/16 08/23/16 08/23/16 Range/Units 06:00 07:59 10:23 RBC (4.30-5.90) m/uL Hgb (13.0-17.5) gm/dL Hct (39.0-53.0) % Plt Count (150-450) k/uL Sodium (137-145) mmol/L Chloride (98-107) mmol/L BUN (9-20) mg/dL Glucose (74-99) mg/dL POC Glucose (mg/dL) 140 H 141 H 118 H (75-99) mg/dL Calcium (8.4-10.2) mg/dL Magnesium (1.6-2.3) mg/dL AST (17-59) U/L ALT (21-72) U/L Alkaline Phosphatase (38-126) U/L Total Protein (6.3-8.2) g/dL Albumin (3.5-5.0) g/dL Assessment and Plan (1) Coronary artery disease Status: Acute Plan: The patient was seen and examined. I agree with the above assessment and plan. He remains hemodynamic was stable. We will continue with low-dose beta abran and amiodarone. His thrombocytopenia is improving. He is currently on aspirin. Her remains on Lovenox secondary to his history of DVT. He did fail his swallow again today. We'll continue with tube feeds via the Dobbhoff tube. He's been having some loose bowel movements which is likely related to his tube feeds. His sodium is still elevated and he has been receiving free water. I do think he would benefit from a dose of Lasix. Antibiotics as directed by infectious disease. He remains debilitated and will continue to have physical therapy work with him.
[2016-08-23 11:58] LABS: Glucose,Whole Blood 120 mg/dL (75-99)
[2016-08-23] MEDS ORDERED: FUROSEMIDE 10 MG/ML 4 ML VIAL IV STA (12:09)
--- NOTE | 2016-08-23 12:36 | P.PN ---
Subjective Principal diagnosis: Status post CABG postoperative day # 10 80-year-old male patient, complaining of exertional dyspnea over the past several months. The patient denied having any chest pain. 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 The patient was found to have occluded right coronary artery with collaterals filling from the left. The patient was found to have critical disease involving the left main coronary artery and critical disease involving diffuse marginal branch of circumflex and proximal LAD. Based on this, coronary artery bypass surgery was recommended. The patient was seen by cardiothoracic surgery and the tentative plan to undergo surgery on this patient is on Tuesday. The preoperative echocardiogram showed a preserved LV function with an ejection fraction of 50-55%. No evidence of any pulmonary hypertension. No evidence of any valvular abnormalities. There is evidence of hypertensive heart disease with concentric left ventricular hypertrophy. Chest x-ray shows no acute cardio pulmonary process. He has history of pulmonary embolism and DVT and the patient has been maintained on anticoagulation on outpatient basis with warfarin. On today's evaluation of 08/11/2016 the patient is stable. The patient has no specific complaints. The patient is using his incentive spirometer. The patient was found to have chronic thrombocytopenia and for that reason a hematology consultation was obtained. History of any chest pain. He remains on IV heparin. Awaiting surgery on Tuesday. A bedside spirometry is still to be done. On 08/13/2016 I'm seeing this patient following his coronary bypass surgery. The patient underwent the surgery without any major complication. I discussed the case with the thoracic surgeon and the intraoperative course was essentially uncomplicated. The patient currently is intubated on mechanical ventilator. He is still sedated. He is hemodynamically stable. He is on a nitroglycerin and Cleviprex Drip for tight blood pressure control. The patient' s cardiac output is at 6.3 with an index of 2.8. PA pressures 29/17. The patient is also has his chest tubes in place with total amount of output being low at this point despite his underlying thrombocytopenia. He is also on an insulin drip at 40 units an hour for blood sugar control. Chest x-ray shows adequate expansion of both lungs and the chest tubes, ET tube and the [place]-Laya catheter in place. The blood gases showed a pH of 7.31 with a pCO2 of 48 and pO2 of 115 and it was not an FiO2 of 100% and I wean down the FiO2 down to 70% and the saturation is currently above 95%. The patient is also on assist control mode of ventilation with a PEEP of 5 and FiO2 of 70% with a tidal volume of 550. His rate is at 12. Postoperative platelet counts is at 42,000. Hemoglobin is at 10.9. The patient has not required any platelet transfusions. On 08/14/2016 the patient remains intubated on a mechanical ventilator. We failed to wean and extubate this patient yesterday because of oxygenation problems. This morning, the patient remained on assist control mode at the rate of 12, tidal volume 500, FiO2 of 60% and a PEEP of 5. The most recent blood gases showed a pH of 7.44 with a pCO2 of 24 and pO2 of 67. Chest x-ray is showing regular postsurgical changes with a mediastinal and the pleural chest tubes in place, ET tube is in a good location. The patient hemodynamically stable. He remains on a combination of nitroglycerin and Cleviprex drip for blood pressure control. His cardiac output as above 7 and the index is at 3.5. Is producing adequate amount of urine output. He remains sedated with Diprivan which is running at 30 mics. Nitroglycerin drip is running at 5 mics per minute and the Cleviprex is at 60 mg an hour. The patient is also on insulin drip at 10 units an hour. Output from the chest tubes have been 20 mL an hour. Meanwhile the patient had developed an acute kidney injury with a creatinine being up to 1.3. The bicarb level is down to 16 and the patient has a informed of non-anion gap metabolic acidosis. On 08/15/2016, the patient remains intubated. I was unable to wean this patient off the mechanical ventilator for several reasons. First and foremost, the patient was having borderline oxygenation. At the later stage, the patient started acting septic where he started having chills and fever and purulent foul -smelling respiratory secretions were also suctioned from his orotracheal tube. Based on all this, cultures and pain and the patient was started on IV Fortaz. Meanwhile, the patient was given IV fluids, overnight he received a bolus of normal saline 1 L and 2 boluses of albumin 12.5 g which improved his urine output. At this point in time, the patient is postop day #2. He is resting comfortably in bed. He is sedated with Diprivan and is calm and comfortable. He is an assist-control mode of ventilation and the most recent vent settings include an assist-control of 12, tidal volume of 600, FiO2 of 70% and a PEEP of 8. The most recent blood gases showed a pH of 7.47 with a pCO2 of 30 and pO2 of 78. Nevertheless, his pulse ox currently on the monitor is at 99% and FiO2 has been drop down to 60% and we will gradually weaning it down to maintain a saturation above 95%. He is afebrile for now. He still has a right IJ [place]-Laya catheter and hemodynamic parameters show a cardiac output of 6 with an index of 2.7. The patient's white cell count is not elevated at 5.7. He will was stable at 10.6. Renal function is impaired with a creatinine of 1.4. He is off the Catapres drip. He is off the nitroglycerin drip. He is producing around 20-30 mL of urine output on an hourly basis and he has gained significant amount of weight and there is third spacing. Chest x-ray shows increased tone vessel markings. ET tube and NG tube are all in good location. The KARL drain in the left lower extremity is in place and the total amount of output is 10 mL. The 2 mediastinal chest tubes in the left pleural chest tubes are also in place with minimal amount of output. Platelet count is stable at 40 ,000. He insulin drip is on hold for now. On 08/16/2016, patient remains intubated, his gases are very marginal, remains on FiO2 of 70%, PEEP is now up to 12, chest x-ray shows what looks like a right lower lobe pneumonia and consolidation in the medial aspect of the right lower lobe. Patient is on broad-spectrum antibiotics coverage. Ventilator settings were reviewed, she is presently on FiO2 of 70%, PEEP of 12, tidal volume of 550 assist control rate of 14. Labs were reviewed, WBC count is 11.9 hemoglobin is 10.9. ABG showed a pO2 of 61 pCO2 of 36 pH of 7.42. Basic metabolic profile is normal however his BUN is 41 and creatinine is 1.40 baseline creatinine was 1.0 on 08/13. Chest x-ray showed cardiomegaly, worsening by basilar airspace disease especially at the right base and small pleural effusions noted. Patient is receiving Lasix daily. Remains on propofol drip. And fully sedated. On 08/17/2016, patient seems to have made a significant improvement from the pulmonary perspective. I was able to cut down his FiO2 to 45%, PEEP is down to 5, tidal volume is 550, and assist control rate is 14. ABG this morning showed a pO2 of 84 pCO2 of 34 pH of 7.42. However when attempted to wean the patient, he went into atrial fibrillation with RVR, hence I decided to hold back on weaning and placed back on assist control mode of mechanical ventilation. CBC showed a hemoglobin of 10.4 WBC count is 8.3. Basic metabolic profile is normal BUN is 58 creatinine is 1.60. Yesterday, patient was placed on Lovenox at 80 mg subcu every 12 hours, and this is mostly to replace his Coumadin since the patient had previous history of hypercoagulable state and pulmonary embolism , and I felt it would be worthwhile placing him on Lovenox instead of Coumadin for the time being. This was also discussed with the surgeon on the case. Platelets remain about the same today compared to yesterday. Not much of a change but they have always been low. On 08/18/2016, patient remains on mechanical ventilation, sedated, patient failed weaning yesterday because of tachycardia and increased shortness of breath upon initial weaning trial. Today however I plan to discontinue propofol , and give him another weaning trial today. Patient seems to be hemodynamically stable. Heart rate is in the 60s. Vent settings tidal volume of 550 assist control of 14 FiO2 is 45% PEEP is 5. ABG showed a pO2 of 97 pCO2 of 35 pH of 7.46. Chest x-ray showed by basilardisease, and small pleural effusions right more so than left. Sputum has been positive for Serratia marcescens, patient remains on Fortaz. The Serratia marcescens is sensitive to Fortaz. CBC is showing WBC count of 6.2 hemoglobin 9.5. Electrolytes were noted to be normal. BUN is 49 creatinine is 1.42. Patient remains on Lovenox every 12 hours. On 08/19/2016, patient remains on mechanical ventilation, off all sedatives and narcotics, however the patient does not seem to be waking up appropriately as expected. Opens eyes at the most, does not follow any instructions, and this is in spite of holding sedation for the last 24 hours. He did receive 1 dose of Ativan last night for restlessness. At any rate I have recommended a CT of the brain today, and I recommended that we continue to hold all narcotics and sedatives, and this was the patient is awake and follows instructions, we will proceed with rapid weaning and possibly extubation today. However his mental status seems to be the main reason for not extubating the patient. Ventilator settings are basically the same, he remains on tidal volume of 550, assist control of 14, FiO2 of 45% and PEEP is 5. ABG showed a pO2 of 123 pCO2 of 30 and pH of 7.51. WBC count is 4.2 hemoglobin is 9.6. Renal profile is improving , BUN is 44 creatinine is 1.22. Sodium is a bit on the high side 146. On 08/20/2016, patient remains off sedation, he did receive 1 mg of Ativan last night for extreme tachypnea with respiratory rate going as high as 40. However patient settled down easily with Ativan, and follow-up ABG and chest x-ray this morning are showing definite improvement overall. Patient remains on mechanical ventilation. Ventilator settings are about the same, and I was able to cut down the PEEP from 8-5. Remains on 50% FiO2. Assist control rate is 12 and tidal volume is 550. ABG showed a pO2 of 122 pCO2 of 29 pH of 7.50. Electrolytes continued to show hypernatremia and BUN of 42 creatinine of 1.20, patient is receiving free water via nasogastric tube to correct his hypernatremia. Mentation serrano, patient seems to be a bit more awake today compared to the previous days. At least he is opening his eyes upon verbal stimulation, he is following simple instructions like wiggling toes, squeezing hands, and sticking tongue upon request. Seems to be very appropriate. But remained generally weak. And falls asleep easily if left alone. Reevaluated on 08/21/2016, patient remains off sedation, he seems to be a bit more awake today compared to the last few days. Patient is still responding to all verbal stimuli, seems to be generally weak, but again this is the best I have seen him in the last 7 days. Patient remains on mechanical ventilation, ventilator settings are basically the same. His ABG showed a pO2 of 104 pCO2 of 30 pH of 7.50 chest x-ray showed mostly by basilar atelectasis right more so than left. CBC showed a hemoglobin of 9.9 electrolytes showed elevated sodium of 150 which I plan to correct with free water flushes via nasogastric tube. BUN is 42 creatinine is 1.09. Patient is relatively asymptomatic except for being generally weak. Reevaluated on 08/22/2016, patient tolerated the extubation very well over the last 24 hours. He seems to be very appropriate, generally weak, but not as lethargic as he was over the last few days. Patient agreed to have a Dobbhoff tube placed and this was placed successfully, plan to start the Dobbhoff tube feeding to improve his nutritional status. Labs showed WBC count of 6.7 hemoglobin is 9.9. Sodium is down to 149 BUN is 38 creatinine is 1.11. Chest x -ray this morning showed low lung volumes, mild interstitial edema, no evidence of pneumonia. Reevaluated today on 08/23/2016, patient continues to do relatively well, however were still dealing with a significantly and profoundly weak patient, and he will likely require a predatory animal exterminator of rehabilitation before he will be able to ambulate on his own. 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 His nutritional status is being addressed, patient is receiving tube feeding via Dobbhoff, his chest x- ray is showing significant improvement, his labs were all reviewed, sodium is improving it is down to 148 today. Hemoglobin is 9.9, blood sugar is 144 Objective - Vital Signs Vital signs: Vital Signs Temp 97.9 F 08/23/16 08:00 Pulse 65 08/23/16 11:00 Resp 19 08/23/16 11:00 BP 106/50 08/23/16 11:00 Pulse Ox 96 08/23/16 11:00 Intake & Output 08/22/16 08/23/16 08/23/16 18:59 06:59 18:59 Intake Total 5593.090 7945.525 884.4 Output Total 513 527 290 Balance 472.202 2016.525 594.4 Weight 117.3 kg 117.6 kg Intake: IV 275 100 100 Dextrose 5% in Water 1, 175 000 ml @ 50 mls/hr IV . Q20H [facility] Rx#:[id number] cefTAZidime 2 gm In 100 100 100 Sodium Chloride 0.9% 100 ml @ 100 mls/hr IVPB Q12HR [facility] Rx#:[id number] Intake, IV Titration 641.733 852.525 424.4 Amount Dextrose 5% in Water 1, 600 825 400 000 ml @ 75 mls/hr IV . [id number] [facility] Rx#:[id number] Insulin Regular 100 unit 41.733 27.525 24.4 In Sodium Chloride 0.9% 100 ml @ Titrate IV .Q0M [facility] Rx#:[id number] Tube Feeding 100 360 160 Other 200 600 200 Output: Drainage 30 Left Calf 30 Urine 511 527 260 Stool 2 Other: Voiding Method Indwelling Catheter Indwelling Catheter Indwelling Catheter # Bowel Movements 1 2 1 ABP, PAP, CO, CI - Last Documented Arterial Blood Pressure 144/51 Pulmonary Artery Pressure 41/23 Cardiac Output 7.4 Cardiac Index 3.3 - Exam Physical Exam: Revealed an 80-year-old white male on mechanical ventilation, in no form of respiratory distress. Patient is presently on few liters nasal cannula. HEENT:[Neck is supple.] [No neck masses.] [No thyromegaly.] [No JVD.] There is evidence of oropharyngeal thrush, hence nystatin swish and swallow was initiated. Chest: [Diminished breath sounds at the bases, no crackles at the bases no rhonchi, no wheezes.] Cardiac Exam: [Normal S1 and S2, no S3 gallop, no murmur.] Abdomen: [Soft, nontender, no megaly, no rebound, no guarding, normal bowel sounds.] Extremities: [No clubbing, 1+ bipedal edema, no cyanosis.] Neurological Exam: No focal neurologic deficit, however the patient is noted to be generally weak. - Labs CBC & Chem 7: 08/23/16 04:45 08/23/16 04:45 Labs: Abnormal Lab Results - Last 24 Hours (Table) 08/22/16 08/22/16 08/22/16 Range/Units 14:38 15:50 16:50 RBC (4.30-5.90) m/uL Hgb (13.0-17.5) gm/dL Hct (39.0-53.0) % Plt Count (150-450) k/uL Sodium (137-145) mmol/L Chloride (98-107) mmol/L BUN (9-20) mg/dL Glucose (74-99) mg/dL POC Glucose (mg/dL) 112 H 136 H 138 H (75-99) mg/dL Calcium (8.4-10.2) mg/dL Magnesium (1.6-2.3) mg/dL AST (17-59) U/L ALT (21-72) U/L Alkaline Phosphatase (38-126) U/L Total Protein (6.3-8.2) g/dL Albumin (3.5-5.0) g/dL 08/22/16 08/22/16 08/22/16 Range/Units 18:05 20:26 22:05 RBC (4.30-5.90) m/uL Hgb (13.0-17.5) gm/dL Hct (39.0-53.0) % Plt Count (150-450) k/uL Sodium (137-145) mmol/L Chloride (98-107) mmol/L BUN (9-20) mg/dL Glucose (74-99) mg/dL POC Glucose (mg/dL) 123 H 132 H 117 H (75-99) mg/dL Calcium (8.4-10.2) mg/dL Magnesium (1.6-2.3) mg/dL AST (17-59) U/L ALT (21-72) U/L Alkaline Phosphatase (38-126) U/L Total Protein (6.3-8.2) g/dL Albumin (3.5-5.0) g/dL 08/23/16 08/23/16 08/23/16 Range/Units 00:07 02:12 04:45 RBC 3.08 L (4.30-5.90) m/uL Hgb 9.9 L (13.0-17.5) gm/dL Hct 30.5 L (39.0-53.0) % Plt Count 115 L (150-450) k/uL Sodium (137-145) mmol/L Chloride (98-107) mmol/L BUN (9-20) mg/dL Glucose (74-99) mg/dL POC Glucose (mg/dL) 140 H 133 H (75-99) mg/dL Calcium (8.4-10.2) mg/dL Magnesium (1.6-2.3) mg/dL AST (17-59) U/L ALT (21-72) U/L Alkaline Phosphatase (38-126) U/L Total Protein (6.3-8.2) g/dL Albumin (3.5-5.0) g/dL 08/23/16 08/23/16 08/23/16 Range/Units 04:45 04:51 06:00 RBC (4.30-5.90) m/uL Hgb (13.0-17.5) gm/dL Hct (39.0-53.0) % Plt Count (150-450) k/uL Sodium 148 H (137-145) mmol/L Chloride 116 H (98-107) mmol/L BUN 36 H (9-20) mg/dL Glucose 144 H (74-99) mg/dL POC Glucose (mg/dL) 141 H 140 H (75-99) mg/dL Calcium 7.9 L (8.4-10.2) mg/dL Magnesium 2.5 H (1.6-2.3) mg/dL AST 101 H (17-59) U/L ALT 74 H (21-72) U/L Alkaline Phosphatase 180 H (38-126) U/L Total Protein 4.7 L (6.3-8.2) g/dL Albumin 2.0 L (3.5-5.0) g/dL 08/23/16 08/23/16 08/23/16 Range/Units 07:59 10:23 11:57 RBC (4.30-5.90) m/uL Hgb (13.0-17.5) gm/dL Hct (39.0-53.0) % Plt Count (150-450) k/uL Sodium (137-145) mmol/L Chloride (98-107) mmol/L BUN (9-20) mg/dL Glucose (74-99) mg/dL POC Glucose (mg/dL) 141 H 118 H 120 H (75-99) mg/dL Calcium (8.4-10.2) mg/dL Magnesium (1.6-2.3) mg/dL AST (17-59) U/L ALT (21-72) U/L Alkaline Phosphatase (38-126) U/L Total Protein (6.3-8.2) g/dL Albumin (3.5-5.0) g/dL Assessment and Plan Plan: 1 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 The patient underwent coronary bypass surgery and currently is postop day 10 2 postoperative hypoxemia with difficulties in weaning due to ongoing oxygenation problem. This was felt to be related to air space disease, and possible pneumonia involving the right lower lobe mostly. Could also be acute lung injury related. /This has resolved over the last few days. Patient was extubated 3 days ago. 3diabetes mellitus on insulin drip for blood sugar control 4 post thoracotomy respiratory failure, patient was difficult to wean until yesterday and he weaned and extubated uneventfully. 5 previous history of DVT and pulmonary embolism , maintained on warfarin outpatient basis, patient will be restarted on Lovenox 80 mg subcu every 12 hours beginning today. In the meantime we'll continue to monitor his low platelets. Patient has chronic thrombocytopenia to begin with. 6 thrombocytopenia him a stable with a platelet count, without evidence of any acute bleeding 7 acute kidney injury, creatinine is down to 1. 11, hypernatremia, being corrected with free water flushes. 8 postoperative respiratory failure, resolved, patient is now off mechanical ventilation. 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 Recommendation: Continue present supportive care measures, physical therapy to evaluate, continue nutritional support, continue antibiotics, patient will require to remain in the ICU. We'll continue to follow. Time with Patient: Less than 30
[2016-08-23 14:10] LABS: Glucose,Whole Blood 152 mg/dL (75-99)
[2016-08-23] MEDS ORDERED: POTASSIUM CHLORIDE ORAL LIQUID 40 MEQ/30 ML CUP NG-TUBE SCH ×2 (15:00→21:00)
[2016-08-23] MEDS: INSULIN REGULAR 100 UNIT in SODIUM CHLORIDE 0.9% 100 ML IV PRN (15:13)
[2016-08-23 16:21] LABS: Glucose,Whole Blood 131 mg/dL (75-99)
[2016-08-23] MEDS: prednisoLONE ACETATE 1% OPHTH DROPS 1 ML BTL LEFT EYE SCH (16:21)
[2016-08-23 17:55] LABS: Glucose,Whole Blood 162 mg/dL (75-99)
[2016-08-23 20:15] LABS: Glucose,Whole Blood 129 mg/dL (75-99)
[2016-08-23] MEDS: LATANOPROST 0.005% OPHTH DROPS 2.5 ML BTL BOTH EYES SCH (20:42)
--- NOTE | 2016-08-23 21:05 | PN ---
DATE OF SERVICE: 08/23/2016 This 80-year-old gentleman who was admitted with CAD coronary artery bypass grafting is being closely monitored at this time. The patient also has diabetes mellitus. The patient continues to be slightly drowsy. The patient has Dobhoff catheter. The patient also has swallowing issues also. On exam, alert and oriented times three. Pulse 66, blood pressure 114/54, respiratory rate 20, temperature 98.9, pulse ox 94% on 2 liters. HEENT: Conjunctivae normal. Oral mucosa moist. NECK: No jugular venous distention. CARDIOVASCULAR: S1, S2 muffled. RESPIRATORY: Breath sounds diminished at the bases. Bilateral scattered rhonchi and crackles. ABDOMEN: Soft, nontender. No mass palpable. LEGS: No edema. No swelling. CENTRAL NERVOUS SYSTEM: No focal deficits. LABS: Accu-Cheks 121, 52, hemoglobin 9.9. Other labs are noted. Sodium 148. ASSESSMENT: 1. Status post coronary artery disease, and coronary artery bypass grafting. 2. Diabetes mellitus type 2 on insulin drip. 3. Failed swallow with Dobhoff feeding. 4. 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 5. Hyperlipidemia. 6. History of degenerative joint disease multiple joints bilaterally. 7. Benign prostatic hypertrophy, stable. 8. 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 9. Postoperative ventilator support. Postoperative ventilatory with secondary to pneumonia. Hospital acquired. 10. Gram-negative bacilli and Serratia Marcescens in the sputum. 11. Elevated LFTs. RECOMMENDATIONS AND DISCUSSION: In this 80-year-old gentleman who presented with multiple complex medical issues, we will monitor the patient closely. Continue the current medications. Continue symptomatic treatment. Otherwise, at this time, continue with insulin drip and once the patient is p.o. can be transitioned into insulin periodic injection. Otherwise, continue to monitor. Further recommendations to follow. MTDD
[2016-08-23] MEDS: METOPROLOL TARTRATE 25 MG TAB PO SCH (21:06)
[2016-08-23 22:09] LABS: Glucose,Whole Blood 118 mg/dL (75-99)
[2016-08-24 00:17] LABS: Glucose,Whole Blood 138 mg/dL (75-99)
[2016-08-24 02:08] LABS: Glucose,Whole Blood 151 mg/dL (75-99)
[2016-08-24] MEDS: DEXTROSE 5% IN WATER 1,000 ML IV SCH (02:18)
[2016-08-24 04:25] LABS: Glucose,Whole Blood 144 mg/dL (75-99)
[2016-08-24 04:44] LABS: Basophils % (A) 1 %; CH 32.2; CHCM 31.5; Eosinophils # (A) 0.2 k/uL (0-0.7); Eosinophils % (A) 3 %; HCT 30.2 % (39.0-53.0); HDW 3.08; HGB 9.5 gm/dL (13.0-17.5); Hypochromasia Slight; Luc # (Auto) 0.06; Luc % (Auto) 1; Lymphocytes # (A) 1.1 k/uL (1.0-4.8); Lymphocytes % (A) 20 %; MCH 32.2 pg (25.0-35.0); MCHC 31.3 g/dL (31.0-37.0); MCV 102.8 fL (80.0-100.0); Macrocytosis Slight; Mean Platelet Volume 10.3; Monocytes # (A) 0.3 k/uL (0-1.0); Monocytes % (A) 5 %; Neutrophils # (A) 3.9 k/uL (1.3-7.7); Neutrophils % (A) 70 %; RBC 2.94 m/uL (4.30-5.90); RDW 14.7 % (11.5-15.5); WBC 5.6 k/uL (3.8-10.6)
[2016-08-24 04:45] LABS: Ionized Calcium 5.1 mg/dL (4.5-5.3)
[2016-08-24 04:51] LABS: Anion Gap 4 mmol/L; Blood Urea Nitrogen 31 mg/dL (9-20); Calcium 7.7 mg/dL (8.4-10.2); Carbon Dioxide 27 mmol/L (22-30); Chloride 114 mmol/L (98-107); Glucose 136 mg/dL (74-99); Magnesium 2.2 mg/dL (1.6-2.3); Non-African American GFR(MDRD) >60 (>60 ml/min/1.73 sqM); Potassium 3.9 mmol/L (3.5-5.1); Sodium 145 mmol/L (137-145)
[2016-08-24] MEDS: BISMUTH SUBSALICYLATE 4,192 MG/240 ML BOTTLE PO PRN (05:31)
[2016-08-24 05:45] LABS: Glucose,Whole Blood 127 mg/dL (75-99)
--- NOTE | 2016-08-24 07:39 | XR ---
EXAMINATION TYPE: XR chest 1V portable DATE OF EXAM: 08/24/2016 6:46 AM COMPARISON: 08/23/2016 INDICATION: Assess lung findings TECHNIQUE: Single frontal view of the chest is obtained. FINDINGS: The heart size is upper limits of normal. The pulmonary vasculature is normal. Previous right lower lobe infiltrate is resolved. PICC line enters on the right with the tip in the proximal right atrium. There is a catheter in the m idline, the distal tip is not clearly identified. Sternotomy wires are in the midline. IMPRESSION: 1. Improved right lower lobe infiltrate. 2. Lines and catheters.
[2016-08-24] MEDS ORDERED: POTASSIUM CHLORIDE ORAL LIQUID 40 MEQ/30 ML CUP NG-TUBE SCH (08:00)
--- NOTE | 2016-08-24 08:05 | P.PN ---
Addendum entered and electronically signed by Juliana Albright, [employer]ATOR-C 08/24/16 12:40 : Addendum: A/V epicardial PM wires discontinued without incident. Pt passed his mod barium swallow, Dobhoff dc'd, diet ordered. Will transition to coumadin. Original Note: <Juliana Albright - Last Filed: 08/24/16 08:05> Subjective Principal diagnosis: Multivessel coronary artery disease POD #11 coronary artery bypass grafting 2 vessels (left internal mammary artery to left anterior descending artery, saphenous vein graft to obtuse marginal artery). Endoscopic vein harvest left greater saphenous vein. Epi- aortic ultrasound. Transesophageal echocardiogram. Postoperative acute hypoxic respiratory failure requiring mechanical ventilation , failure to wean secondary to Serratia marcescens pneumonia, an unexpected postoperative complication. Postoperative paroxysmal atrial fibrillation, expected outcome, treated with amiodarone. Currently awake and alert, sitting up in cardiac chair in no apparent distress. Wants to go back to bed. Failed swallow eval twice. Receiving tube feedings through Dobbhoff. Slow progress. Objective - Vital Signs Vital signs: Vital Signs Temp 97.8 F 08/24/16 05:00 Pulse 90 08/24/16 06:00 Resp 26 H 08/24/16 06:00 BP 136/59 08/24/16 06:00 Pulse Ox 95 08/24/16 06:00 Intake & Output 08/23/16 08/24/16 08/24/16 18:59 06:59 18:59 Intake Total 3429.791 4904.317 Output Total 2560 715 Balance -977.393 4856.317 Weight 117 kg Intake: IV 100 100 cefTAZidime 2 gm In 100 100 Sodium Chloride 0.9% 100 ml @ 100 mls/hr IVPB Q12HR [facility] Rx#:[id number] Intake, IV Titration 901.359 802.317 Amount Dextrose 5% in Water 1, 850 750 000 ml @ 75 mls/hr IV . [id number] [facility] Rx#:[id number] Insulin Regular 100 unit 51.359 52.317 In Sodium Chloride 0.9% 100 ml @ Titrate IV .Q0M PRN Rx#:[id number] Tube Feeding 490 570 Other 400 600 Output: Drainage 30 Left Calf 30 Urine 2530 715 Other: Voiding Method Indwelling Catheter Indwelling Catheter # Bowel Movements 1 1 ABP, PAP, CO, CI - Last Documented Arterial Blood Pressure 144/51 Pulmonary Artery Pressure 41/23 Cardiac Output 7.4 Cardiac Index 3.3 - Constitutional General appearance: Present: cooperative, no acute distress, obese - Respiratory Details: Lungs sounds diminished bilaterally, coarse bilateral bases. Respirations even , nonlabored. Currently 2 L nasal cannula oxygen saturation 96%. Only able to achieve 500 mL on his incentive spirometry. Effective cough with productive yellow sputum. - Cardiovascular Details: S1, S2 present. Regular rate and rhythm, normal sinus rhythm on telemetry. Sternum stable. Heart hugger in place with patient unable to demonstrate appropriate use. Teds/SCDs present. Bilateral lower extremity edema present. A/V epicardial pacemaker wires present but grounded. - Gastrointestinal Gastrointestinal Comment(s): Abdomen soft, nondistended, nontender, obese. Active bowel sounds 4 quadrants. Currently tube fed through Dobbhoff at a rate of 65 mL per hour. - Genitourinary Genitourinary Comment(s): Thornton present draining clear, yellow urine. Approximately 40-60 mL/h overnight. Patient did diurese 2.5 L over 7 hours yesterday after Lasix IV push given. - Integumentary Integumentary Comment(s): Anterior chest incision well approximated and covered with dry intact dressing. Left lower extremity EVH site well approximated, KARL drain in place. - Musculoskeletal Musculoskeletal: Present: generalized weakness - Psychiatric Psychiatric: Present: A&O x's 3, appropriate affect, intact judgment & insight - Allied health notes Allied health notes reviewed: nursing - Labs CBC & Chem 7: 08/24/16 04:25 08/24/16 04:25 Labs: Abnormal Lab Results - Last 24 Hours (Table) 08/23/16 08/23/16 08/23/16 Range/Units 07:59 10:23 11:57 RBC (4.30-5.90) m/uL Hgb (13.0-17.5) gm/dL Hct (39.0-53.0) % MCV (80.0-100.0) fL Plt Count (150-450) k/uL Chloride (98-107) mmol/L BUN (9-20) mg/dL Glucose (74-99) mg/dL POC Glucose (mg/dL) 141 H 118 H 120 H (75-99) mg/dL Calcium (8.4-10.2) mg/dL 08/23/16 08/23/16 08/23/16 Range/Units 14:08 16:20 17:53 RBC (4.30-5.90) m/uL Hgb (13.0-17.5) gm/dL Hct (39.0-53.0) % MCV (80.0-100.0) fL Plt Count (150-450) k/uL Chloride (98-107) mmol/L BUN (9-20) mg/dL Glucose (74-99) mg/dL POC Glucose (mg/dL) 152 H 131 H 162 H (75-99) mg/dL Calcium (8.4-10.2) mg/dL 08/23/16 08/23/16 08/24/16 Range/Units 20:13 22:08 00:13 RBC (4.30-5.90) m/uL Hgb (13.0-17.5) gm/dL Hct (39.0-53.0) % MCV (80.0-100.0) fL Plt Count (150-450) k/uL Chloride (98-107) mmol/L BUN (9-20) mg/dL Glucose (74-99) mg/dL POC Glucose (mg/dL) 129 H 118 H 138 H (75-99) mg/dL Calcium (8.4-10.2) mg/dL 08/24/16 08/24/16 08/24/16 Range/Units 02:07 04:19 04:25 RBC (4.30-5.90) m/uL Hgb (13.0-17.5) gm/dL Hct (39.0-53.0) % MCV (80.0-100.0) fL Plt Count (150-450) k/uL Chloride 114 H (98-107) mmol/L BUN 31 H (9-20) mg/dL Glucose 136 H (74-99) mg/dL POC Glucose (mg/dL) 151 H 144 H (75-99) mg/dL Calcium 7.7 L (8.4-10.2) mg/dL 08/24/16 08/24/16 Range/Units 04:25 05:44 RBC 2.94 L (4.30-5.90) m/uL Hgb 9.5 L (13.0-17.5) gm/dL Hct 30.2 L (39.0-53.0) % MCV 102.8 H (80.0-100.0) fL Plt Count 130 L (150-450) k/uL Chloride (98-107) mmol/L BUN (9-20) mg/dL Glucose (74-99) mg/dL POC Glucose (mg/dL) 127 H (75-99) mg/dL Calcium (8.4-10.2) mg/dL - Imaging and Cardiology Chest x-ray: image reviewed Assessment and Plan (1) Diabetes Status: Acute (2) Hyperlipidemia Status: Acute (3) History of pulmonary embolus (PE) Status: Acute (4) History of deep vein thrombosis Status: Acute (5) Thrombocytopenia Status: Acute (6) Coronary artery disease Status: Acute (7) Postoperative acute respiratory failure Status: Acute (8) Pneumonia due to Serratia marcescens Status: Acute (9) Paroxysmal atrial fibrillation Status: Acute Plan: 1. Will continue to hold statin secondary to elevated liver enzymes. Increase aspirin to 325 mg daily, continue Lopressor. 2. Continue amiodarone for atrial fibrillation prophylaxis 3. Continue Lovenox secondary to history of DVT. Will begin Coumadin for anticoagulation, however holding off at this point in case patient needs PEG tube. 4. Wean O2 as tolerated. Encourage incentive spirometry use. 5. Increase activity as tolerated. Physical therapy to follow. 6. Continue tube feedings until able to tolerate diet. Speech therapy to follow. 7. Antibiotics per pulmonary/ID. Sputum culture positive for Serratia marcescens 8. Daily labs, chest x-rays. 9. GI/DVT prophylaxis. 10. More recommendations as patient progresses. Time with Patient: Greater than 30 <Ramin Traore - Last Filed: 08/24/16 13:26> Objective - Vital Signs Vital signs: Vital Signs Temp 97.8 F 08/24/16 05:00 Pulse 71 08/24/16 12:25 Resp 29 H 08/24/16 11:00 BP 127/61 08/24/16 11:00 Pulse Ox 95 08/24/16 08:00 Intake & Output 08/23/16 08/24/16 08/24/16 18:59 06:59 18:59 Intake Total 7709.374 6695.317 695 Output Total 2560 821 355 Balance -923.570 2626.317 340 Weight 117 kg Intake: IV 100 100 475 Dextrose 5% in Water 1, 375 000 ml @ 75 mls/hr IV . [id number] [facility] Rx#:[id number] cefTAZidime 2 gm In 100 100 100 Sodium Chloride 0.9% 100 ml @ 100 mls/hr IVPB Q12HR [facility] Rx#:[id number] Intake, IV Titration 901.359 952.317 Amount Dextrose 5% in Water 1, 850 900 000 ml @ 75 mls/hr IV . [id number] [facility] Rx#:[id number] Insulin Regular 100 unit 51.359 52.317 In Sodium Chloride 0.9% 100 ml @ Titrate IV .Q0M PRN Rx#:[id number] Oral 40 Tube Feeding 490 690 180 Other 400 600 Output: Drainage 30 25 Left Calf 30 25 Urine 2530 795 355 Stool 1 Other: Voiding Method Indwelling Catheter Indwelling Catheter # Voids 1 # Bowel Movements 1 1 1 ABP, PAP, CO, CI - Last Documented Arterial Blood Pressure 144/51 Pulmonary Artery Pressure 41/23 Cardiac Output 7.4 Cardiac Index 3.3 - Labs CBC & Chem 7: 08/24/16 04:25 08/24/16 04:25 Labs: Abnormal Lab Results - Last 24 Hours (Table) 08/23/16 08/23/16 08/23/16 Range/Units 14:08 16:20 17:53 RBC (4.30-5.90) m/uL Hgb (13.0-17.5) gm/dL Hct (39.0-53.0) % MCV (80.0-100.0) fL Plt Count (150-450) k/uL Chloride (98-107) mmol/L BUN (9-20) mg/dL Glucose (74-99) mg/dL POC Glucose (mg/dL) 152 H 131 H 162 H (75-99) mg/dL Calcium (8.4-10.2) mg/dL 08/23/16 08/23/16 08/24/16 Range/Units 20:13 22:08 00:13 RBC (4.30-5.90) m/uL Hgb (13.0-17.5) gm/dL Hct (39.0-53.0) % MCV (80.0-100.0) fL Plt Count (150-450) k/uL Chloride (98-107) mmol/L BUN (9-20) mg/dL Glucose (74-99) mg/dL POC Glucose (mg/dL) 129 H 118 H 138 H (75-99) mg/dL Calcium (8.4-10.2) mg/dL 08/24/16 08/24/16 08/24/16 Range/Units 02:07 04:19 04:25 RBC (4.30-5.90) m/uL Hgb (13.0-17.5) gm/dL Hct (39.0-53.0) % MCV (80.0-100.0) fL Plt Count (150-450) k/uL Chloride 114 H (98-107) mmol/L BUN 31 H (9-20) mg/dL Glucose 136 H (74-99) mg/dL POC Glucose (mg/dL) 151 H 144 H (75-99) mg/dL Calcium 7.7 L (8.4-10.2) mg/dL 08/24/16 08/24/16 08/24/16 Range/Units 04:25 05:44 08:06 RBC 2.94 L (4.30-5.90) m/uL Hgb 9.5 L (13.0-17.5) gm/dL Hct 30.2 L (39.0-53.0) % MCV 102.8 H (80.0-100.0) fL Plt Count 130 L (150-450) k/uL Chloride (98-107) mmol/L BUN (9-20) mg/dL Glucose (74-99) mg/dL POC Glucose (mg/dL) 127 H 135 H (75-99) mg/dL Calcium (8.4-10.2) mg/dL 08/24/16 Range/Units 12:35 RBC (4.30-5.90) m/uL Hgb (13.0-17.5) gm/dL Hct (39.0-53.0) % MCV (80.0-100.0) fL Plt Count (150-450) k/uL Chloride (98-107) mmol/L BUN (9-20) mg/dL Glucose (74-99) mg/dL POC Glucose (mg/dL) 214 H (75-99) mg/dL Calcium (8.4-10.2) mg/dL Assessment and Plan (1) Coronary artery disease Status: Acute Plan: The patient was seen and examined. I agree with the above assessment and plan. Overall he looks better and more alert. He is down to 2 L nasal cannula oxygen. He did pass his swallow study today. His Dobbhoff tube was removed. We will begin feeding him this afternoon. His temporary pacing wires were removed. He is diuresing well with Lasix. He remains on antibiotics as directed by infectious disease. We will begin Coumadin this evening. Physical therapy will be working with him. [facility].
[2016-08-24 08:08] LABS: Glucose,Whole Blood 135 mg/dL (75-99)
[2016-08-24] MEDS: ASPIRIN 325 MG TAB PO SCH ×2 (08:34→16:59)
[2016-08-24] MEDS: AMIODARONE 200 MG TAB PO SCH (08:35)
[2016-08-24] MEDS: PANTOPRAZOLE 40 MG TABLET PO SCH (08:36)
[2016-08-24] MEDS: METOPROLOL TARTRATE 25 MG TAB PO SCH ×3 (08:36→21:01)
[2016-08-24] MEDS ORDERED: FUROSEMIDE 10 MG/ML 4 ML VIAL IV STA (08:37)
[2016-08-24] MEDS ORDERED: ASPIRIN 81 MG CHEW PO SCH (09:00)
[2016-08-24] MEDS: ENOXAPARIN 80 MG/0.8 ML SYRINGE SQ SCH ×2 (09:11→20:59)
[2016-08-24] MEDS: DORZOLAMIDE HCL 2% DROPS 10 ML BTL LEFT EYE SCH (09:12)
[2016-08-24] MEDS: NYSTATIN 100,000 UNIT/ML SUSP 500,000 UNIT/5 ML CUP PO SCH ×4 (09:12→21:01)
[2016-08-24] MEDS ORDERED: INSULIN LISPRO (humaLOG) 300 UNIT/3 ML VIAL SQ SCH (12:00)
[2016-08-24] MEDS: IPRATROPIUM-ALBUTEROL 3 ML NEB INHALATION SCH ×2 (12:13→19:53)
--- NOTE | 2016-08-24 12:14 | FL ---
EXAMINATION TYPE: FL barium swallow w video DATE OF EXAM: 08/24/2016 MODIFIED SWALLOW / DEGLUTITION STUDY CLINICAL HISTORY: Post open cardiac surgery with coughing and choking, rule out aspiration. TECHNIQUE: Deglutition study is performed utilizing thin liquid barium, honey and nectar thick liqui d barium, barium thick applesauce, and barium coated cracker. A total of 2.57 minutes of fluoroscopic time was utilized during procedure. COMPARISON: None. FINDINGS: The oral and pharyngeal phases show satisfactory initiation and propagation with all modali ties tested. Normal mastication is seen with solid modalities tested. There is no evidence of penet ration or aspiration with any modality tested. Mild old pharyngeal residue was appreciated. Nasogastr ic tube is noted. IMPRESSION: No penetration or aspiration identified. No Please refer to speech therapist notes for fu rther details if necessary.
--- NOTE | 2016-08-24 12:19 | PN ---
This is a patient who was admitted initially on August 09 with chest pain. In underwent a 2-vessel bypass grafting on August 13. He developed pneumonia and sepsis and was finally extubated on the 21 of August. Still very profoundly weak. Does not have any pain. Denies any shortness of breath or chest discomfort. He has currently has been weaned down to 2 L nasal cannula and a D5W IV at 75 mL an hour. Also getting an insulin drip at 3.5 units an hour. The patient is feeling much, much better. Still has a way to ago. Would like to be discharged to a rehab facility for additional rehabilitation. Currently, his vital signs are stable. Temperature 97.8, heart rate 71, respiratory rate 20, blood pressure 143/64, mean 90 and a saturation 95% on 2 L. Appears in no acute distress. HEENT examination is grossly unremarkable. Mucous membranes are moist. No oral lesions. Nasal O2 in place. NECK: Supple. Full range of motion. No adenopathy or thyromegaly. Neck veins are flat. Cardiovascular examination reveals regular rhythm and rate. S1, S2 normal. No S3, S4 or murmur. Lungs reveal relatively clear breath sounds. ( ) take a deep breath. There is a few scattered areas of rhonchi. No wheezes. No crackles. ABDOMEN: Soft. Bowel sounds are heard. There were no masses or tenderness. Extremities are intact. Minimal edema. Skin without rash. Lab data is reviewed. White count 5.6, hemoglobin 9.5, hematocrit 30.2, platelet count 130,000. Sodium, potassium normal. Chloride is 114, CO2 of 27. BUN and creatinine were 31 and 1.14. The rest of the labs look okay. Microbiology is showing evidence of some Serratia marcescens on the sputum from . The sensitivities are noted. Chest x-ray shows resolving right lower lobe infiltrate. ASSESSMENT: 1. Postoperative day #11, status post bypass grafting. 2. Postoperative hypoxemia with difficulty in weaning from mechanical ventilation secondary to pneumonia and atelectasis right lower lobe. 3. Diabetes mellitus. 4. Post thoracotomy respiratory failure. 5. History of deep venous thrombosis and pulmonary embolism. 6. Thrombocytopenia. 7. Acute kidney injury. 8. Critical illness polyneuropathy. 9. Serratia marcescens pneumonia/tracheobronchitis. PLAN: Will review the sensitivities to make sure he is on appropriate antibiotics. Medications are reviewed. He will need rehab with PT, OT. Additional recommendations and suggestions are forthcoming. Prognosis is guarded.
[2016-08-24 12:37] LABS: Glucose,Whole Blood 214 mg/dL (75-99)
--- NOTE | 2016-08-24 12:57 | PN ---
This is an 80-year-old gentleman who is status post CABG, has had prolonged hospitalization, extubated of vent, doing better this morning. He is on amiodarone 200 daily. On exam, comfortable at rest. Vital signs are stable. Chest exam reveals diminished air entry at the bases. Heart exam reveals first and second heart sounds. No gallop. Examination of the extremities reveals trace edema. Peripheral pulses are felt. Labs show that the hemoglobin is 9.5. Potassium is 3.9. Creatinine is 1.1. ASSESSMENT: 1. Coronary artery disease, status post coronary artery bypass graft. 2. Paroxysmal atrial fibrillation. PLAN: Patient will continue the amiodarone and the metoprolol that he is currently on.
[2016-08-24 17:19] LABS: Glucose,Whole Blood 146 mg/dL (75-99)
[2016-08-24] MEDS ORDERED: WARFARIN 5 MG TAB PO ONE (18:00)
[2016-08-24] MEDS: INSULIN LISPRO (humaLOG) 300 UNIT/3 ML VIAL SQ SCH ×3 (20:01→20:58)
--- NOTE | 2016-08-24 20:34 | PN ---
DATE OF SERVICE: 08/24/2016 This 80-year-old gentleman, admitted after CAD, CABG, is being closely monitored. The patient has an insulin drip. Blood sugars are fluctuating. No chest pain. No palpitation. Oral intake appears to be improving. Dobhoff has been removed. On exam, alert and oriented x2. Pulse is 74, blood pressure 137/71, respiration 23, temperature normal, pulse 94% on 2 L. HEENT: Conjunctivae normal. NECK: No jugular venous distention. CARDIOVASCULAR SYSTEM: S1, S2 muffled. RESPIRATORY SYSTEM: Breath sounds diminished at the bases. A few scattered rhonchi. No crackles. ABDOMEN: Soft, non-tender. LEGS: No edema. No swelling. NERVOUS SYSTEM: No focal deficit. LABS: WBC 5.6, hemoglobin 9.4. Platelets 130. Accu-Cheks are 135 and 214. ASSESSMENT: 1. Status post coronary artery disease, coronary artery bypass grafting. 2. Diabetes mellitus, type 2, status post insulin drip. 3. Status post Dobhoff feeding. 4. 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 5. Hyperlipidemia. 6. History of degenerative joint disease, including in multiple joints bilaterally. 7. Benign prostatic hypertrophy, stable. 8. 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 9. Postoperative ventilator support secondary to pneumonia, hospital-acquired. 10. Gram-negative bacilli and Serratia marcescens in the sputum. 11. Elevated liver function tests. RECOMMENDATIONS AND DISCUSSION: I recommend to continue with the current medications, continue with symptomatic treatment, continue with insulin regimen. Otherwise, monitor blood sugars closely. Incentive spirometry. Continue the rest of the medications. Further recommendations to follow.
[2016-08-24 20:56] LABS: Glucose,Whole Blood 159 mg/dL (75-99)
[2016-08-24] MEDS: INSULIN NPH 300 UNIT/3 ML VIAL SQ SCH (20:58)
[2016-08-24] MEDS: LATANOPROST 0.005% OPHTH DROPS 2.5 ML BTL BOTH EYES SCH (21:01)
[2016-08-24] MEDS: POTASSIUM CHLORIDE 10 MEQ, LIDOCAINE 2% INJ 10 MG in SODIUM CHLORIDE 0.9% 100 ML IV SCH (23:00)
[2016-08-25] MEDS: POTASSIUM CHLORIDE 10 MEQ, LIDOCAINE 2% INJ 10 MG in SODIUM CHLORIDE 0.9% 100 ML IV SCH (00:56)
[2016-08-25] MEDS: INSULIN LISPRO (humaLOG) 300 UNIT/3 ML VIAL SQ SCH ×6 (01:04→22:16)
[2016-08-25 01:05] LABS: Glucose,Whole Blood 140 mg/dL (75-99)
[2016-08-25 05:50] LABS: ALT 73 U/L (21-72); AST 63 U/L (17-59); Alkaline Phosphatase 176 U/L (38-126); Anion Gap 4 mmol/L; Blood Urea Nitrogen 28 mg/dL (9-20); Calcium 7.9 mg/dL (8.4-10.2); Carbon Dioxide 27 mmol/L (22-30); Chloride 113 mmol/L (98-107); Glucose 137 mg/dL (74-99); Magnesium 2.2 mg/dL (1.6-2.3); Non-African American GFR(MDRD) >60 (>60 ml/min/1.73 sqM); Potassium 4.4 mmol/L (3.5-5.1); Sodium 144 mmol/L (137-145); Total Bilirubin 1.1 mg/dL (0.2-1.3); Total Protein 4.9 g/dL (6.3-8.2)
[2016-08-25 06:00] LABS: INR 1.4 (<1.1); Prothrombin Time 13.7 sec (9.0-12.0)
--- NOTE | 2016-08-25 06:45 | XR ---
EXAMINATION TYPE: XR chest 1V portable DATE OF EXAM: 08/25/2016 CLINICAL HISTORY: Difficulty breathing progress study. Post open cardiac surgery. TECHNIQUE: Single AP portable upright view of the chest is obtained. COMPARISON: Chest x-ray from one day earlier FINDINGS: A right-sided PICC line is stable in appearance. Sternal wires and mediastinal clips are r edemonstrated. There is persistent cardiomegaly with central vascular congestion. There is no new foc al airspace opacity, pleural effusion, or pneumothorax seen bilaterally. Somewhat low lung volumes ar e redemonstrated. Osseous structures are intact. IMPRESSION: Overall stable findings, cardiomegaly with central vascular congestion, no new infiltra te is seen.
[2016-08-25] MEDS: IPRATROPIUM-ALBUTEROL 3 ML NEB INHALATION SCH ×3 (07:38→20:50)
[2016-08-25 07:39] LABS: CH 31.8; CHCM 31.6; HCT 29.6 % (39.0-53.0); HDW 3.05; HGB 9.4 gm/dL (13.0-17.5); Hypochromasia Slight; MCH 32.1 pg (25.0-35.0); MCHC 31.7 g/dL (31.0-37.0); MCV 101.2 fL (80.0-100.0); Macrocytosis Slight; Mean Platelet Volume 10.7; RBC 2.92 m/uL (4.30-5.90); RDW 14.7 % (11.5-15.5); WBC 5.5 k/uL (3.8-10.6); WBC (Perox) 5.33
[2016-08-25 07:48] LABS: Glucose,Whole Blood 133 mg/dL (75-99)
[2016-08-25] MEDS: INSULN ASP PRT/INSULIN ASPART 100 UNIT/ML 10 ML VIAL SQ SCH (07:56)
--- NOTE | 2016-08-25 08:33 | P.PN ---
Subjective Principal diagnosis: Multivessel coronary artery disease POD #12 coronary artery bypass grafting 2 vessels (left internal mammary artery to left anterior descending artery, saphenous vein graft to obtuse marginal artery). Endoscopic vein harvest left greater saphenous vein. Epi- aortic ultrasound. Transesophageal echocardiogram. Postoperative acute hypoxic respiratory failure requiring mechanical ventilation , failure to wean secondary to Serratia marcescens pneumonia, an unexpected postoperative complication, likely pneumonia acquired prior to surgery. Postoperative paroxysmal atrial fibrillation, expected outcome, treated with amiodarone. History of DVT/PE, on chronic Coumadin. History of hyperlipidemia. Uncontrolled type 2 diabetes mellitus, hemoglobin A1c 7.0%. Currently sitting up in chair position in the bed in no apparent distress. Past barium swallow yesterday, diet added, patient tolerating diet. Per nursing patient had 3-4 minute run of atrial fibrillation with rapid ventricular response last night, abated on its own, patient currently is on amiodarone and Lopressor. Objective - Vital Signs Vital signs: Vital Signs Temp 98.5 F 08/25/16 04:00 Pulse 66 08/25/16 06:00 Resp 20 08/25/16 06:00 BP 116/54 08/25/16 06:00 Pulse Ox 93 L 08/25/16 06:00 Intake & Output 08/24/16 08/25/16 08/25/16 18:59 06:59 18:59 Intake Total 695 431 Output Total 1855 544 Balance -1160 -113 Weight 115 kg Intake: IV 475 120 Dextrose 5% in Water 1, 375 000 ml @ 75 mls/hr IV . [id number] [facility] Rx#:[id number] Lactated Ringers 1,000 ml 20 @ 20 mls/hr IV .Q24H [facility] Rx#:[id number] cefTAZidime 2 gm In 100 100 Sodium Chloride 0.9% 100 ml @ 100 mls/hr IVPB Q12HR [facility] Rx#:[id number] Intake, IV Titration 240 Amount Lactated Ringers 1,000 ml 40 @ 10 mls/hr IV .Q24H PRN Rx#:[id number] Potassium Chloride 10 meq 200 Lidocaine 2% Inj 10 mg In Sodium Chloride 0.9% 100 ml @ 100 mls/hr IV Q1HR [facility] Rx#:[id number] Oral 40 71 Tube Feeding 180 Output: Drainage 0 0 Left Calf 0 0 Urine 1855 543 Stool 1 Other: Voiding Method Indwelling Catheter Indwelling Catheter # Voids 1 # Bowel Movements 2 ABP, PAP, CO, CI - Last Documented Arterial Blood Pressure 144/51 Pulmonary Artery Pressure 41/23 Cardiac Output 7.4 Cardiac Index 3.3 - Constitutional General appearance: Present: cooperative, no acute distress, obese - Respiratory Details: Lungs sounds diminished bilaterally. Respirations even, nonlabored. Currently on 2 L nasal cannula with oxygen saturation 93%. Only able to achieve 500 mL on his incentive spirometry. Minimally effective cough. - Cardiovascular Details: S1, S2 present. Regular rate and rhythm, normal sinus rhythm on telemetry. Sternum is stable. Heart hugger in place with patient starting to utilize appropriately. Bilateral lower semi-trace edema still present. Teds/SCDs present. - Gastrointestinal Gastrointestinal Comment(s): Abdomen soft, nontender, nondistended, obese. Bowel sounds present 4 quadrants. Tolerating diet. Bowel movement 3 yesterday. - Genitourinary Genitourinary Comment(s): Thornton present draining clear, yellow urine. Output 35-75 mL/h overnight. Diuresed approximated 1600 mL after Lasix given yesterday. - Integumentary Integumentary Comment(s): Anterior chest incision well approximated and covered with dry intact dressing. Left lower extremity EVH site approximated with KARL draining in place. - Musculoskeletal Musculoskeletal: Present: generalized weakness - Psychiatric Psychiatric: Present: A&O x's 3, appropriate affect, intact judgment & insight - Allied health notes Allied health notes reviewed: nursing - Labs CBC & Chem 7: 08/25/16 05:25 08/25/16 05:25 Labs: Abnormal Lab Results - Last 24 Hours (Table) 08/24/16 08/24/16 08/24/16 Range/Units 08:06 12:35 17:17 PT (9.0-12.0) sec Chloride (98-107) mmol/L BUN (9-20) mg/dL Glucose (74-99) mg/dL POC Glucose (mg/dL) 135 H 214 H 146 H (75-99) mg/dL Calcium (8.4-10.2) mg/dL AST (17-59) U/L ALT (21-72) U/L Alkaline Phosphatase (38-126) U/L Total Protein (6.3-8.2) g/dL Albumin (3.5-5.0) g/dL 08/24/16 08/25/16 08/25/16 Range/Units 20:49 01:01 05:25 PT 13.7 H (9.0-12.0) sec Chloride (98-107) mmol/L BUN (9-20) mg/dL Glucose (74-99) mg/dL POC Glucose (mg/dL) 159 H 140 H (75-99) mg/dL Calcium (8.4-10.2) mg/dL AST (17-59) U/L ALT (21-72) U/L Alkaline Phosphatase (38-126) U/L Total Protein (6.3-8.2) g/dL Albumin (3.5-5.0) g/dL 08/25/16 Range/Units 05:25 PT (9.0-12.0) sec Chloride 113 H (98-107) mmol/L BUN 28 H (9-20) mg/dL Glucose 137 H (74-99) mg/dL POC Glucose (mg/dL) (75-99) mg/dL Calcium 7.9 L (8.4-10.2) mg/dL AST 63 H (17-59) U/L ALT 73 H (21-72) U/L Alkaline Phosphatase 176 H (38-126) U/L Total Protein 4.9 L (6.3-8.2) g/dL Albumin 2.1 L (3.5-5.0) g/dL - Imaging and Cardiology Chest x-ray: image reviewed Assessment and Plan (1) Diabetes Status: Acute (2) Hyperlipidemia Status: Acute (3) History of pulmonary embolus (PE) Status: Acute (4) History of deep vein thrombosis Status: Acute (5) Thrombocytopenia Status: Acute (6) Coronary artery disease Status: Acute (7) Postoperative acute respiratory failure Status: Acute (8) Pneumonia due to Serratia marcescens Status: Acute (9) Paroxysmal atrial fibrillation Status: Acute Plan: 1. Continue aspirin, Lopressor. Will restart statin. 2. Continue amiodarone for atrial fibrillation prophylaxis 3. Continue Lovenox secondary to history of DVT. Convert to Coumadin for anticoagulation. INR 1.4 this morning, will give 5 mg of Coumadin this evening. 4. Wean O2 as tolerated. Encourage incentive spirometry use. Will start Lasix 20 mg IV push twice a day. 5. Increase activity as tolerated. Physical therapy to follow. 6. Will discontinue KARL drain. 7. Antibiotics per pulmonary/ID. Sputum culture positive for Serratia marcescens 8. Daily labs, chest x-rays. 9. GI/DVT prophylaxis. 10. Will transfer out of ICU today. 11. Would appreciate physical therapy and occupational therapy recommendations , patient will need rehabilitation upon discharge. Time with Patient: Greater than 30
[2016-08-25 08:55] LABS: Add Differential Manual Differential
[2016-08-25] MEDS ORDERED: DEXTROSE 5% IN WATER 100 ML with AMIODARONE 150 MG IV ONE (09:00)
[2016-08-25] MEDS ORDERED: METOPROLOL TARTRATE 50 MG TAB PO SCH (09:00)
[2016-08-25 09:02] LABS: Nucleated Red Blood Cells 0 /100 WBC (0-0); RBC Morphology Normal; Total Cells Counted 100
[2016-08-25 09:03] LABS: Manual Review Performed
[2016-08-25] MEDS: PANTOPRAZOLE 40 MG TABLET PO SCH (09:09)
[2016-08-25] MEDS: ASPIRIN 325 MG TAB PO SCH (09:09)
[2016-08-25] MEDS: AMIODARONE 200 MG TAB PO SCH (09:09)
[2016-08-25] MEDS: METOPROLOL TARTRATE 25 MG TAB PO SCH ×2 (09:11→20:37)
[2016-08-25] MEDS: ENOXAPARIN 80 MG/0.8 ML SYRINGE SQ SCH ×2 (09:12→20:35)
[2016-08-25] MEDS: DORZOLAMIDE HCL 2% DROPS 10 ML BTL LEFT EYE SCH (09:12)
[2016-08-25] MEDS: FUROSEMIDE 10 MG/ML 2 ML VIAL IV SCH ×2 (09:13→20:36)
[2016-08-25] MEDS: NYSTATIN 100,000 UNIT/ML SUSP 500,000 UNIT/5 ML CUP PO SCH ×4 (09:14→20:37)
[2016-08-25] MEDS: ATORVASTATIN 40 MG TAB PO SCH (09:25)
--- NOTE | 2016-08-25 10:47 | P.PN ---
Subjective Principal diagnosis: Coronary artery disease 80-year-old male patient, complaining of exertional dyspnea over the past several months. The patient denied having any chest pain. 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 The patient was found to have occluded right coronary artery with collaterals filling from the left. The patient was found to have critical disease involving the left main coronary artery and critical disease involving diffuse marginal branch of circumflex and proximal LAD. Based on this, coronary artery bypass surgery was recommended. The patient was seen by cardiothoracic surgery and the tentative plan to undergo surgery on this patient is on Tuesday. The preoperative echocardiogram showed a preserved LV function with an ejection fraction of 50-55%. No evidence of any pulmonary hypertension. No evidence of any valvular abnormalities. There is evidence of hypertensive heart disease with concentric left ventricular hypertrophy. Chest x-ray shows no acute cardio pulmonary process. He has history of pulmonary embolism and DVT and the patient has been maintained on anticoagulation on outpatient basis with warfarin. On today's evaluation of 08/11/2016 the patient is stable. The patient has no specific complaints. The patient is using his incentive spirometer. The patient was found to have chronic thrombocytopenia and for that reason a hematology consultation was obtained. History of any chest pain. He remains on IV heparin. Awaiting surgery on Tuesday. A bedside spirometry is still to be done. On 08/13/2016 I'm seeing this patient following his coronary bypass surgery. The patient underwent the surgery without any major complication. I discussed the case with the thoracic surgeon and the intraoperative course was essentially uncomplicated. The patient currently is intubated on mechanical ventilator. He is still sedated. He is hemodynamically stable. He is on a nitroglycerin and Cleviprex Drip for tight blood pressure control. The patient' s cardiac output is at 6.3 with an index of 2.8. PA pressures 29/17. The patient is also has his chest tubes in place with total amount of output being low at this point despite his underlying thrombocytopenia. He is also on an insulin drip at 40 units an hour for blood sugar control. Chest x-ray shows adequate expansion of both lungs and the chest tubes, ET tube and the [place]-Laya catheter in place. The blood gases showed a pH of 7.31 with a pCO2 of 48 and pO2 of 115 and it was not an FiO2 of 100% and I wean down the FiO2 down to 70% and the saturation is currently above 95%. The patient is also on assist control mode of ventilation with a PEEP of 5 and FiO2 of 70% with a tidal volume of 550. His rate is at 12. Postoperative platelet counts is at 42,000. Hemoglobin is at 10.9. The patient has not required any platelet transfusions. On 08/14/2016 the patient remains intubated on a mechanical ventilator. We failed to wean and extubate this patient yesterday because of oxygenation problems. This morning, the patient remained on assist control mode at the rate of 12, tidal volume 500, FiO2 of 60% and a PEEP of 5. The most recent blood gases showed a pH of 7.44 with a pCO2 of 24 and pO2 of 67. Chest x-ray is showing regular postsurgical changes with a mediastinal and the pleural chest tubes in place, ET tube is in a good location. The patient hemodynamically stable. He remains on a combination of nitroglycerin and Cleviprex drip for blood pressure control. His cardiac output as above 7 and the index is at 3.5. Is producing adequate amount of urine output. He remains sedated with Diprivan which is running at 30 mics. Nitroglycerin drip is running at 5 mics per minute and the Cleviprex is at 60 mg an hour. The patient is also on insulin drip at 10 units an hour. Output from the chest tubes have been 20 mL an hour. Meanwhile the patient had developed an acute kidney injury with a creatinine being up to 1.3. The bicarb level is down to 16 and the patient has a informed of non-anion gap metabolic acidosis. On 08/15/2016, the patient remains intubated. I was unable to wean this patient off the mechanical ventilator for several reasons. First and foremost, the patient was having borderline oxygenation. At the later stage, the patient started acting septic where he started having chills and fever and purulent foul -smelling respiratory secretions were also suctioned from his orotracheal tube. Based on all this, cultures and pain and the patient was started on IV Fortaz. Meanwhile, the patient was given IV fluids, overnight he received a bolus of normal saline 1 L and 2 boluses of albumin 12.5 g which improved his urine output. At this point in time, the patient is postop day #2. He is resting comfortably in bed. He is sedated with Diprivan and is calm and comfortable. He is an assist-control mode of ventilation and the most recent vent settings include an assist-control of 12, tidal volume of 600, FiO2 of 70% and a PEEP of 8. The most recent blood gases showed a pH of 7.47 with a pCO2 of 30 and pO2 of 78. Nevertheless, his pulse ox currently on the monitor is at 99% and FiO2 has been drop down to 60% and we will gradually weaning it down to maintain a saturation above 95%. He is afebrile for now. He still has a right IJ [place]-Laya catheter and hemodynamic parameters show a cardiac output of 6 with an index of 2.7. The patient's white cell count is not elevated at 5.7. He will was stable at 10.6. Renal function is impaired with a creatinine of 1.4. He is off the Catapres drip. He is off the nitroglycerin drip. He is producing around 20-30 mL of urine output on an hourly basis and he has gained significant amount of weight and there is third spacing. Chest x-ray shows increased tone vessel markings. ET tube and NG tube are all in good location. The KARL drain in the left lower extremity is in place and the total amount of output is 10 mL. The 2 mediastinal chest tubes in the left pleural chest tubes are also in place with minimal amount of output. Platelet count is stable at 40 ,000. He insulin drip is on hold for now. On 08/16/2016, patient remains intubated, his gases are very marginal, remains on FiO2 of 70%, PEEP is now up to 12, chest x-ray shows what looks like a right lower lobe pneumonia and consolidation in the medial aspect of the right lower lobe. Patient is on broad-spectrum antibiotics coverage. Ventilator settings were reviewed, she is presently on FiO2 of 70%, PEEP of 12, tidal volume of 550 assist control rate of 14. Labs were reviewed, WBC count is 11.9 hemoglobin is 10.9. ABG showed a pO2 of 61 pCO2 of 36 pH of 7.42. Basic metabolic profile is normal however his BUN is 41 and creatinine is 1.40 baseline creatinine was 1.0 on 08/13. Chest x-ray showed cardiomegaly, worsening by basilar airspace disease especially at the right base and small pleural effusions noted. Patient is receiving Lasix daily. Remains on propofol drip. And fully sedated. On 08/17/2016, patient seems to have made a significant improvement from the pulmonary perspective. I was able to cut down his FiO2 to 45%, PEEP is down to 5, tidal volume is 550, and assist control rate is 14. ABG this morning showed a pO2 of 84 pCO2 of 34 pH of 7.42. However when attempted to wean the patient, he went into atrial fibrillation with RVR, hence I decided to hold back on weaning and placed back on assist control mode of mechanical ventilation. CBC showed a hemoglobin of 10.4 WBC count is 8.3. Basic metabolic profile is normal BUN is 58 creatinine is 1.60. Yesterday, patient was placed on Lovenox at 80 mg subcu every 12 hours, and this is mostly to replace his Coumadin since the patient had previous history of hypercoagulable state and pulmonary embolism , and I felt it would be worthwhile placing him on Lovenox instead of Coumadin for the time being. This was also discussed with the surgeon on the case. Platelets remain about the same today compared to yesterday. Not much of a change but they have always been low. On 08/18/2016, patient remains on mechanical ventilation, sedated, patient failed weaning yesterday because of tachycardia and increased shortness of breath upon initial weaning trial. Today however I plan to discontinue propofol , and give him another weaning trial today. Patient seems to be hemodynamically stable. Heart rate is in the 60s. Vent settings tidal volume of 550 assist control of 14 FiO2 is 45% PEEP is 5. ABG showed a pO2 of 97 pCO2 of 35 pH of 7.46. Chest x-ray showed by basilardisease, and small pleural effusions right more so than left. Sputum has been positive for Serratia marcescens, patient remains on Fortaz. The Serratia marcescens is sensitive to Fortaz. CBC is showing WBC count of 6.2 hemoglobin 9.5. Electrolytes were noted to be normal. BUN is 49 creatinine is 1.42. Patient remains on Lovenox every 12 hours. On 08/19/2016, patient remains on mechanical ventilation, off all sedatives and narcotics, however the patient does not seem to be waking up appropriately as expected. Opens eyes at the most, does not follow any instructions, and this is in spite of holding sedation for the last 24 hours. He did receive 1 dose of Ativan last night for restlessness. At any rate I have recommended a CT of the brain today, and I recommended that we continue to hold all narcotics and sedatives, and this was the patient is awake and follows instructions, we will proceed with rapid weaning and possibly extubation today. However his mental status seems to be the main reason for not extubating the patient. Ventilator settings are basically the same, he remains on tidal volume of 550, assist control of 14, FiO2 of 45% and PEEP is 5. ABG showed a pO2 of 123 pCO2 of 30 and pH of 7.51. WBC count is 4.2 hemoglobin is 9.6. Renal profile is improving , BUN is 44 creatinine is 1.22. Sodium is a bit on the high side 146. On 08/20/2016, patient remains off sedation, he did receive 1 mg of Ativan last night for extreme tachypnea with respiratory rate going as high as 40. However patient settled down easily with Ativan, and follow-up ABG and chest x-ray this morning are showing definite improvement overall. Patient remains on mechanical ventilation. Ventilator settings are about the same, and I was able to cut down the PEEP from 8-5. Remains on 50% FiO2. Assist control rate is 12 and tidal volume is 550. ABG showed a pO2 of 122 pCO2 of 29 pH of 7.50. Electrolytes continued to show hypernatremia and BUN of 42 creatinine of 1.20, patient is receiving free water via nasogastric tube to correct his hypernatremia. Mentation serrano, patient seems to be a bit more awake today compared to the previous days. At least he is opening his eyes upon verbal stimulation, he is following simple instructions like wiggling toes, squeezing hands, and sticking tongue upon request. Seems to be very appropriate. But remained generally weak. And falls asleep easily if left alone. Reevaluated on 08/21/2016, patient remains off sedation, he seems to be a bit more awake today compared to the last few days. Patient is still responding to all verbal stimuli, seems to be generally weak, but again this is the best I have seen him in the last 7 days. Patient remains on mechanical ventilation, ventilator settings are basically the same. His ABG showed a pO2 of 104 pCO2 of 30 pH of 7.50 chest x-ray showed mostly by basilar atelectasis right more so than left. CBC showed a hemoglobin of 9.9 electrolytes showed elevated sodium of 150 which I plan to correct with free water flushes via nasogastric tube. BUN is 42 creatinine is 1.09. Patient is relatively asymptomatic except for being generally weak. Reevaluated on 08/22/2016, patient tolerated the extubation very well over the last 24 hours. He seems to be very appropriate, generally weak, but not as lethargic as he was over the last few days. Patient agreed to have a Dobbhoff tube placed and this was placed successfully, plan to start the Dobbhoff tube feeding to improve his nutritional status. Labs showed WBC count of 6.7 hemoglobin is 9.9. Sodium is down to 149 BUN is 38 creatinine is 1.11. Chest x -ray this morning showed low lung volumes, mild interstitial edema, no evidence of pneumonia. Reevaluated today on 08/23/2016, patient continues to do relatively well, however were still dealing with a significantly and profoundly weak patient, and he will likely require a long term care social worker of rehabilitation before he will be able to ambulate on his own. 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 His nutritional status is being addressed, patient is receiving tube feeding via Dobbhoff, his chest x- ray is showing significant improvement, his labs were all reviewed, sodium is improving it is down to 148 today. Hemoglobin is 9.9, blood sugar is 144 Patient is seen again today 08/25/2016 in follow-up in the intensive care unit. He is awake and alert in no acute distress. He denies any worsening shortness of breath, cough or congestion. He has been slow to progress. He was only able to stand at the bedside yesterday with physical therapy. They'll work with him again today. His chest x-ray reveals overall stable findings there is evidence of cardiomegaly with some mild central vascular congestion. No new infiltrates. He did receive an additional 20 mg of IV Lasix today. Maintaining O2 saturations in the low 90s on 2 L/m per nasal cannula. He's afebrile. He has had issues with atrial fibrillation with a rapid ventricular response in the high 190s to 200. He's received amiodarone boluses. Is currently in a sinus rhythm. Blood pressure stable. No other drips. Objective - Vital Signs Vital signs: Vital Signs Temp 98.9 F 08/25/16 08:00 Pulse 81 08/25/16 10:00 Resp 23 08/25/16 10:00 BP 113/67 08/25/16 10:00 Pulse Ox 96 08/25/16 10:00 Intake & Output 08/24/16 08/25/16 08/25/16 18:59 06:59 18:59 Intake Total 695 431 100 Output Total 1855 544 430 Balance -1160 -113 -330 Weight 115 kg 115 kg Intake: IV 475 120 100 Dextrose 5% in Water 1, 375 000 ml @ 75 mls/hr IV . [id number] [facility] Rx#:[id number] Lactated Ringers 1,000 ml 20 @ 20 mls/hr IV .Q24H [facility] Rx#:[id number] cefTAZidime 2 gm In 100 100 100 Sodium Chloride 0.9% 100 ml @ 100 mls/hr IVPB Q12HR [facility] Rx#:[id number] Intake, IV Titration 240 Amount Lactated Ringers 1,000 ml 40 @ 10 mls/hr IV .Q24H [facility] Rx#:[id number] Potassium Chloride 10 meq 200 Lidocaine 2% Inj 10 mg In Sodium Chloride 0.9% 100 ml @ 100 mls/hr IV Q1HR [facility] Rx#:[id number] Oral 40 71 Tube Feeding 180 Output: Drainage 0 0 Left Calf 0 0 Urine 1855 543 430 Stool 1 Other: Voiding Method Indwelling Catheter Indwelling Catheter # Voids 1 # Bowel Movements 2 ABP, PAP, CO, CI - Last Documented Arterial Blood Pressure 144/51 Pulmonary Artery Pressure 41/23 Cardiac Output 7.4 Cardiac Index 3.3 - Exam GENERAL EXAM: Obese. Alert, fairly comfortable in no apparent distress. HEAD: Normocephalic. EYES: Normal reaction of pupils, equal size. NOSE: Clear with pink turbinates. THROAT: No erythema or exudates. NECK: No masses, no JVD. CHEST: Sternal dressing dry and intact. LUNGS: Equal air entry with us in the posterior bases. Diminished.. CVS: S1 and S2 normal with no audible murmurs, regular rhythm. ABDOMEN: No hepatosplenomegaly, normal bowel sounds, no guarding or rigidity. Extremities: There is 1-2+ peripheral edema. No clubbing, no cyanosis. Peripheral pulses are intact. - Labs CBC & Chem 7: 08/25/16 05:25 08/25/16 05:25 Labs: Abnormal Lab Results - Last 24 Hours (Table) 08/24/16 08/24/16 08/24/16 Range/Units 12:35 17: 20:49 RBC (4.30-5.90) m/uL Hgb (13.0-17.5) gm/dL Hct (39.0-53.0) % MCV (80.0-100.0) fL Plt Count (150-450) k/uL PT (9.0-12.0) sec Chloride (98-107) mmol/L BUN (9-20) mg/dL Glucose (74-99) mg/dL POC Glucose (mg/dL) 214 H 146 H 159 H (75-99) mg/dL Calcium (8.4-10.2) mg/dL AST (17-59) U/L ALT (21-72) U/L Alkaline Phosphatase (38-126) U/L Total Protein (6.3-8.2) g/dL Albumin (3.5-5.0) g/dL 08/25/16 08/25/16 08/25/16 Range/Units 01:01 05:25 05:25 RBC (4.30-5.90) m/uL Hgb (13.0-17.5) gm/dL Hct (39.0-53.0) % MCV (80.0-100.0) fL Plt Count (150-450) k/uL PT 13.7 H (9.0-12.0) sec Chloride 113 H (98-107) mmol/L BUN 28 H (9-20) mg/dL Glucose 137 H (74-99) mg/dL POC Glucose (mg/dL) 140 H (75-99) mg/dL Calcium 7.9 L (8.4-10.2) mg/dL AST 63 H (17-59) U/L ALT 73 H (21-72) U/L Alkaline Phosphatase 176 H (38-126) U/L Total Protein 4.9 L (6.3-8.2) g/dL Albumin 2.1 L (3.5-5.0) g/dL 08/25/16 08/25/16 Range/Units 05:25 07:47 RBC 2.92 L (4.30-5.90) m/uL Hgb 9.4 L (13.0-17.5) gm/dL Hct 29.6 L (39.0-53.0) % MCV 101.2 H (80.0-100.0) fL Plt Count 121 L (150-450) k/uL PT (9.0-12.0) sec Chloride (98-107) mmol/L BUN (9-20) mg/dL Glucose (74-99) mg/dL POC Glucose (mg/dL) 133 H (75-99) mg/dL Calcium (8.4-10.2) mg/dL AST (17-59) U/L ALT (21-72) U/L Alkaline Phosphatase (38-126) U/L Total Protein (6.3-8.2) g/dL Albumin (3.5-5.0) g/dL Assessment and Plan Plan: Impression: 1 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 The patient underwent coronary bypass surgery and currently is postop day 12 2 postoperative hypoxemia with difficulties in weaning due to ongoing oxygenation problem. This was felt to be related to air space disease, and possible pneumonia involving the right lower lobe mostly. Could also be acute lung injury related. /This has resolved over the last few days. Patient was extubated 4 days ago. Taking good O2 saturations in the 90s on 2 L/m per nasal cannula. Chest x-ray shows evidence of small bilateral pleural effusions. 3 diabetes mellitus on insulin drip for blood sugar control 4 post thoracotomy respiratory failure, patient was difficult to wean until yesterday and he weaned and extubated uneventfully. 5 previous history of DVT and pulmonary embolism , maintained on warfarin outpatient basis, patient will be restarted on Lovenox 80 mg subcu every 12 hours beginning today. In the meantime we'll continue to monitor his low platelets. Patient has chronic thrombocytopenia to begin with. 6 thrombocytopenia him a stable with a platelet count, without evidence of any acute bleeding 7 acute kidney injury, creatinine is down to 1. 11, hypernatremia, being corrected with free water flushes. 8 postoperative respiratory failure, resolved, patient is now off mechanical ventilation. 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 Plan: The patient was seen and evaluated by Dr. Aviles. His chest x-ray and labs were reviewed. We'll continue with the patient's current medications. He is again educated regarding the increased use of the incentive spirometer and cough and deep breathing exercises. Physical therapy is working with the patient and hopefully he will progress from here. The plan is for probable inpatient rehabilitation once discharge. We'll continue to follow. Time with Patient: Greater than 30
[2016-08-25 11:35] LABS: Glucose,Whole Blood 162 mg/dL (75-99)
--- NOTE | 2016-08-25 15:02 | P.PN ---
Subjective Principal diagnosis: S/P coronary artery bypass grafting surgery This is an 80-year-old gentleman who is status post coronary artery bypass grafting surgery.patient has had a prolonged coursepostoperatively, today is being followed on the telemetry unit. He has no complaints at the time of my examination, therapy did have him standing up at bedside today. patient states " that made him feel great".Blood pressure 103/60 with a heart rate in the 70s.Hemoglobin 9.4.AST 63, ALT 73, alk phos 176.chest x-ray reveals overall stable findings, cardiomegaly with central vascular congestion. No new infiltrate is seen. Remaining in normal sinus rhythm. Objective - Vital Signs Vital signs: Vital Signs Temp 97.2 F L 08/25/16 12:25 Pulse 74 08/25/16 12:25 Resp 20 08/25/16 12:25 BP 98/54 08/25/16 12:25 Pulse Ox 96 08/25/16 12:25 Intake & Output 08/24/16 08/25/16 08/25/16 18:59 06:59 18:59 Intake Total 695 431 340 Output Total 1855 544 782 Balance -1160 -113 -442 Weight 115 kg 115 kg Intake: IV 475 120 100 Dextrose 5% in Water 1, 375 000 ml @ 75 mls/hr IV . [id number] [facility] Rx#:[id number] Lactated Ringers 1,000 ml 20 @ 20 mls/hr IV .Q24H [facility] Rx#:[id number] cefTAZidime 2 gm In 100 100 100 Sodium Chloride 0.9% 100 ml @ 100 mls/hr IVPB Q12HR [facility] Rx#:[id number] Intake, IV Titration 240 Amount Lactated Ringers 1,000 ml 40 @ 10 mls/hr IV .Q24H [facility] Rx#:[id number] Potassium Chloride 10 meq 200 Lidocaine 2% Inj 10 mg In Sodium Chloride 0.9% 100 ml @ 100 mls/hr IV Q1HR [facility] Rx#:[id number] Oral 40 71 240 Tube Feeding 180 Output: Drainage 0 0 Left Calf 0 0 Urine 1855 543 780 Stool 1 2 Other: Voiding Method Indwelling Catheter Indwelling Catheter Indwelling Catheter # Voids 1 # Bowel Movements 2 ABP, PAP, CO, CI - Last Documented Arterial Blood Pressure 144/51 Pulmonary Artery Pressure 41/23 Cardiac Output 7.4 Cardiac Index 3.3 - Exam PHYSICAL EXAMINATION: HEENT: Head is atraumatic, normocephalic. Pupils equal, round. Neck is supple. There is no elevated jugular venous pressure. HEART EXAMINATION: Heart S1, S2 normal. No murmur or gallop heard. CHEST EXAMINATION: Lungs are clear with diminished air entry to bilateral bases ABDOMEN: Soft, nontender. Bowel sounds are heard. No organomegaly noted. Right radial site clean and dry, good distal pulse. EXTREMITIES: 2+ peripheral pulses with 2+ evidence of peripheral edema and no calf tenderness noted. NEUROLOGIC patient is awake, alert and oriented -3. . - Labs CBC & Chem 7: 08/25/16 05:25 08/25/16 05: Labs: Abnormal Lab Results - Last 24 Hours (Table) 08/24/16 08/24/16 08/25/16 Range/Units 17: 20:49 01:01 RBC (4.30-5.90) m/uL Hgb (13.0-17.5) gm/dL Hct (39.0-53.0) % MCV (80.0-100.0) fL Plt Count (150-450) k/uL PT (9.0-12.0) sec Chloride (98-107) mmol/L BUN (9-20) mg/dL Glucose (74-99) mg/dL POC Glucose (mg/dL) 146 H 159 H 140 H (75-99) mg/dL Calcium (8.4-10.2) mg/dL AST (17-59) U/L ALT (21-72) U/L Alkaline Phosphatase (38-126) U/L Total Protein (6.3-8.2) g/dL Albumin (3.5-5.0) g/dL 08/25/16 08/25/16 08/25/16 Range/Units 05:25 05:25 05:25 RBC 2.92 L (4.30-5.90) m/uL Hgb 9.4 L (13.0-17.5) gm/dL Hct 29.6 L (39.0-53.0) % MCV 101.2 H (80.0-100.0) fL Plt Count 121 L (150-450) k/uL PT 13.7 H (9.0-12.0) sec Chloride 113 H (98-107) mmol/L BUN 28 H (9-20) mg/dL Glucose 137 H (74-99) mg/dL POC Glucose (mg/dL) (75-99) mg/dL Calcium 7.9 L (8.4-10.2) mg/dL AST 63 H (17-59) U/L ALT 73 H (21-72) U/L Alkaline Phosphatase 176 H (38-126) U/L Total Protein 4.9 L (6.3-8.2) g/dL Albumin 2.1 L (3.5-5.0) g/dL 08/25/16 08/25/16 Range/Units 07:47 11:34 RBC (4.30-5.90) m/uL Hgb (13.0-17.5) gm/dL Hct (39.0-53.0) % MCV (80.0-100.0) fL Plt Count (150-450) k/uL PT (9.0-12.0) sec Chloride (98-107) mmol/L BUN (9-20) mg/dL Glucose (74-99) mg/dL POC Glucose (mg/dL) 133 H 162 H (75-99) mg/dL Calcium (8.4-10.2) mg/dL AST (17-59) U/L ALT (21-72) U/L Alkaline Phosphatase (38-126) U/L Total Protein (6.3-8.2) g/dL Albumin (3.5-5.0) g/dL Assessment and Plan (1) S/P cardiac cath Status: Acute (2) Triple vessel coronary artery disease Status: Acute (3) Diabetes Status: Acute (4) History of deep vein thrombosis Status: Acute (5) History of pulmonary embolus (PE) Status: Acute (6) Hyperlipidemia Status: Acute (7) Thrombocytopenia Status: Acute (8) S/P CABG (coronary artery bypass graft) Status: Acute Plan: From cardiology's perspective, we will continue current medications. Progressing well. DNP note has been reviewed, I agree with a documented findings and plan of care. Patient was seen and examined.
--- NOTE | 2016-08-25 16:57 | P.CONS ---
History of Present Illness - Chief Complaint Cardiac debility - History of Present Illness I had the opportunity to see patient for inpatient rehab consultation with regard to cardiac debility. He was admitted with acute onset shortness of breath and coronary artery disease. Seen by Dr. Traore. Seen by Dr. Nieto for pulmonary management. Seen by Dr. Hopper for thrombocytopenia. PT and OT to prescribed. PT reports total assistance for bed mobility. Moderate assistance for transfers but fatigues quickly. Unable to stand. Previous functional history, as elicited from patient: 80-year-old right-handed white male who is single lives and 2 floor home with grandson who works. 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 Previously independent. Regular doctor is in [place]. Family history of cancer in father. Review of Systems Review of systems: Patient denies any problems despite specific questions with regard to breathing, weakness etc. ENT: Denies sneezes or discharge. Eyes: Denies discharge or photophobia. Cardiac: Denies chest pain or palpitation. Pulmonary: Denies cough or shortness of breath. Gastrointestinal: Denies nausea, emesis, constipation, diarrhea. Genitourinary: Denies discharge or frequency. Musculoskeletal: Denies muscle or bone aches. Neurologic: Denies motor or sensory change. Endocrine: Denies shakes or sweats. Oncology: Denies cancers. Dermatologic: Denies rash, itching, pruritus. ALLERGY/immunology: Denies sneezes, rashes. Past Medical History Past Medical History: Diabetes Mellitus, Deep Vein Thrombosis (DVT), Eye Disorder, Hyperlipidemia, Osteoarthritis (OA), Prostate Disorder, Pulmonary Embolus (PE) Additional Past Medical History / Comment(s): Three-vessel coronary artery disease and details discussed above History of Any Multi-Drug Resistant Organisms: None Reported Additional Past Surgical History / Comment(s): corneal transplant Past Anesthesia/Blood Transfusion Reactions: No Reported Reaction Past Psychological History: No Psychological Hx Reported Smoking Status: Former smoker Past Alcohol Use History: None Reported Additional Past Alcohol Use History / Comment(s): smoked a little as teen Past Drug Use History: None Reported - Past Family History Mother Family Medical History: No Reported History Medications and Allergies Home Medications Medication Instructions Recorded Confirmed Type Dorzolamide 2% [Trusopt 2%] 1 drops LEFT EYE BID 08/06/16 08/09/16 History Glimepiride [Amaryl] 4 mg PO BID 08/06/16 08/09/16 History Metoprolol Succinate [Toprol XL] 25 mg PO DAILY 08/06/16 08/09/16 History Pravastatin Sodium [Pravachol] 10 mg PO DAILY 08/06/16 08/09/16 History Warfarin [Coumadin] 10 mg PO DAILY 08/06/16 08/09/16 History glipiZIDE [Glucotrol] 10 mg PO DAILY 08/06/16 08/09/16 History Latanoprost [Xalatan 0.005%] 1 drop BOTH EYES HS 08/09/16 08/09/16 History metFORMIN HCL [Glucophage] 500 mg PO TID-W/MEALS 08/09/16 08/09/16 History prednisoLONE ACETATE 1% OPHTH 1 drops LEFT EYE MOTH 08/09/16 08/09/16 History [Pred Forte 1%] Allergies Allergy/AdvReac Type Severity Reaction Status Date / Time Penicillins Allergy Rash/Hives Verified 08/13/16 00:31 codeine AdvReac Agitation Verified 08/09/16 19:26 Physical Exam Vitals: Vital Signs Temp Pulse Pulse Pulse Resp BP BP 08/25/16 12:25 97.2 F L 74 74 20 98/54 08/25/16 11:00 75 23 103/61 08/25/16 10:00 81 23 113/67 08/25/16 09:00 94 33 H 135/57 08/25/16 08:00 98.9 F 85 26 H 114/50 08/25/16 07:49 80 08/25/16 07:38 67 08/25/16 07:00 88 22 117/52 08/25/16 06:00 66 20 116/54 08/25/16 05:00 66 24 111/55 08/25/16 04:00 98.5 F 64 21 108/56 08/25/16 03:00 62 18 98/52 08/25/16 02:00 69 22 119/57 08/25/16 01:00 67 22 121/56 08/25/16 00:00 99.6 F 71 22 114/55 08/24/16 23:05 68 22 114/55 08/24/16 23:00 67 26 H 97/51 08/24/16 22:00 64 9 L 119/60 08/24/16 21:00 88 25 H 119/60 08/24/16 20:16 61 08/24/16 20:00 98.9 F 51 L 28 H 161/60 08/24/16 19:55 59 L 08/24/16 19:00 110 H 35 H 172/66 08/24/16 18:00 107 H 30 H 150/66 08/24/16 17:00 21 Pulse Ox 08/25/16 12:25 96 08/25/16 11:00 95 08/25/16 10:00 96 08/25/16 09:00 94 L 08/25/16 08:00 92 L 08/25/16 07:49 08/25/16 07:38 08/25/16 07:00 94 L 08/25/16 06:00 93 L 08/25/16 05:00 94 L 08/25/16 04:00 95 08/25/16 03:00 96 08/25/16 02:00 94 L 08/25/16 01:00 95 08/25/16 00:00 95 08/24/16 23:05 94 L 08/24/16 23:00 94 L 08/24/16 22:00 95 08/24/16 21:00 92 L 08/24/16 20:16 08/24/16 20:00 99 08/24/16 19:55 08/24/16 19:00 94 L 08/24/16 18:00 95 08/24/16 17:00 94 L Intake and Output 08/25/16 08/25/16 08/25/16 06:59 14:59 22:59 Intake Total 306 340 Output Total 333 782 Balance -27 -442 Intake: IV 20 100 Lactated Ringers 1,000 ml 20 @ 20 mls/hr IV .Q24H [facility] Rx#:[id number] cefTAZidime 2 gm In 100 Sodium Chloride 0.9% 100 ml @ 100 mls/hr IVPB Q12HR [facility] Rx#:[id number] Intake, IV Titration 240 Amount Lactated Ringers 1,000 ml 40 @ 10 mls/hr IV .Q24H [facility] Rx#:[id number] Potassium Chloride 10 meq 200 Lidocaine 2% Inj 10 mg In Sodium Chloride 0.9% 100 ml @ 100 mls/hr IV Q1HR [facility] Rx#:[id number] Oral 46 240 Output: Drainage 0 Left Calf 0 Urine 333 780 Stool 2 Other: Voiding Method Indwelling Catheter Indwelling Catheter Weight 115 kg 115 kg Patient Weight 08/26/16 06:59 Weight 115 kg Skin: Good color, texture, turgor. General: Medium build and comfortable appearance. Head: Normocephalic, atraumatic. Eyes: Symmetric. Pupils equal round. Ears: Symmetric. Hearing within normal limits. Mouth: Clear. Neck: Supple. Carotid without bruit. Cardiac: Regular rate and rhythm. Lungs: Clear anteriorly and posteriorly. Abdomen: Soft active nontender. Extremities: Normal tone. Edema forelegs and feet. Moderate arthritic changes major joints. Neurological: Mental status: Alert, cooperative, pleasant. Cranial nerves: Symmetric facial tone and trapezius. Motor: Generalized weakness but is able to elevate all limbs off of bed. Sensation: Intact throughout. DTRs: Symmetric and equal throughout. Mobility: Did not attempt to sit or stand on my own. Results CBC & Chem 7: 08/25/16 05:25 08/25/16 05:25 Labs: Abnormal Lab Results - Last 24 Hours (Table) 08/24/16 08/24/16 08/25/16 Range/Units 17: 20:49 01:01 RBC (4.30-5.90) m/uL Hgb (13.0-17.5) gm/dL Hct (39.0-53.0) % MCV (80.0-100.0) fL Plt Count (150-450) k/uL PT (9.0-12.0) sec Chloride (98-107) mmol/L BUN (9-20) mg/dL Glucose (74-99) mg/dL POC Glucose (mg/dL) 146 H 159 H 140 H (75-99) mg/dL Calcium (8.4-10.2) mg/dL AST (17-59) U/L ALT (21-72) U/L Alkaline Phosphatase (38-126) U/L Total Protein (6.3-8.2) g/dL Albumin (3.5-5.0) g/dL 08/25/16 08/25/16 08/25/16 Range/Units 05:25 05:25 05:25 RBC 2.92 L (4.30-5.90) m/uL Hgb 9.4 L (13.0-17.5) gm/dL Hct 29.6 L (39.0-53.0) % MCV 101.2 H (80.0-100.0) fL Plt Count 121 L (150-450) k/uL PT 13.7 H (9.0-12.0) sec Chloride 113 H (98-107) mmol/L BUN 28 H (9-20) mg/dL Glucose 137 H (74-99) mg/dL POC Glucose (mg/dL) (75-99) mg/dL Calcium 7.9 L (8.4-10.2) mg/dL AST 63 H (17-59) U/L ALT 73 H (21-72) U/L Alkaline Phosphatase 176 H (38-126) U/L Total Protein 4.9 L (6.3-8.2) g/dL Albumin 2.1 L (3.5-5.0) g/dL 08/25/16 08/25/16 Range/Units 07:47 11:34 RBC (4.30-5.90) m/uL Hgb (13.0-17.5) gm/dL Hct (39.0-53.0) % MCV (80.0-100.0) fL Plt Count (150-450) k/uL PT (9.0-12.0) sec Chloride (98-107) mmol/L BUN (9-20) mg/dL Glucose (74-99) mg/dL POC Glucose (mg/dL) 133 H 162 H (75-99) mg/dL Calcium (8.4-10.2) mg/dL AST (17-59) U/L ALT (21-72) U/L Alkaline Phosphatase (38-126) U/L Total Protein (6.3-8.2) g/dL Albumin (3.5-5.0) g/dL Chest x-ray: report reviewed (Chest x-rays followed.) Assessment and Plan (1) Coronary artery disease Status: Acute Plan: Impression: 1. Cardiac debility. 2. Status post coronary bypassing. 3. Serratia pneumonia. 4. History of PE and DVT. 5. Diabetes. 6. Dyslipidemia. 7. Osteeoarthritis. 8. History of disorder of eyes and prostate. Comments and plan: At this time PT ongoing OT prescribed. Follow therapies with yourself. Patient currently two-person assistance for functional mobility. Not currently ready for full inpatient rehab.
[2016-08-25 17:07] LABS: Glucose,Whole Blood 91 mg/dL (75-99)
[2016-08-25] MEDS ORDERED: WARFARIN 5 MG TAB PO ONE (18:00)
[2016-08-25] MEDS: LATANOPROST 0.005% OPHTH DROPS 2.5 ML BTL BOTH EYES SCH (20:36)
[2016-08-25 21:06] LABS: Glucose,Whole Blood 134 mg/dL (75-99)
[2016-08-25] MEDS: INSULIN NPH 300 UNIT/3 ML VIAL SQ SCH (22:16)
--- NOTE | 2016-08-25 23:08 | PN ---
DATE OF SERVICE: 08/25/2016 INTERVAL HISTORY: This is a gentleman who is status post CABG x2 and has been progressing very slowly. Today patient is sitting up in the bed, alert. He has just finished his breakfast. Looks well. Heart Hugger in place. Patient had a burst of atrial fibrillation, for which he received amiodarone this morning. Patient has now converted back into sinus rhythm. Patient is stable, looks well, smiling, happy, very conversant. Review of systems is done for constitutional, cardiovascular, GI, pulmonary, with relevant findings as above. CURRENT MEDICATIONS: 1. Amiodarone 200 mg p.o. daily. 2. Aspirin 325 mg p.o. daily. 3. Lipitor 40 mg p.o. daily. 4. Lovenox 80 mg subcutaneously q.12 hours. 5. Lasix 20 mg IV push q.12 hours. 6. Metoprolol 25 mg p.o. b.i.d. 7. Protonix 40 mg p.o. daily. PHYSICAL EXAMINATION: VITAL SIGNS: Temperature 97.2, pulse 74, respiratory rate 20, blood pressure 104/56, oxygen saturation 96% on 2 L nasal cannula. GENERAL APPEARANCE: Patient is awake and alert, looks happy. He is tearful at times; however, very conversant and happy to answer questions. EYES: Pupils equal. Conjunctivae normal. NECK: JVD not raised. Mass not palpable. LUNGS: Breath sounds diminished bilaterally. RESPIRATORY: Effort normal. CARDIOVASCULAR: First and second sounds noted. Generalized edema, particularly to the left hand and lower extremities. ABDOMEN: Slightly distended. Soft, nontender. Bowel sounds distant x4. PSYCHIATRY: Alert and oriented x3. Mood and affect are normal. INVESTIGATIONS: Hemoglobin 9.4. INR 1.4. Blood glucose 137. AST 63, ALT 73, alkaline phosphatase 176. Chest x-ray reveals an overall stable finding; no new infiltrate seen on x-ray. ASSESSMENT: 1. Status post coronary artery bypass grafting for triple-vessel coronary artery disease, slow to respond. 2. Coronary artery disease. 3. Diabetes mellitus, type 2, on oral hypoglycemics. 4. Chronic deep vein thrombosis, pulmonary embolism, on Coumadin fpc. 5. Hyperglycemia, controlled. 6. 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 7. Benign prostatic hypertrophy, stable. 8. 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 9. Postoperative respiratory failure secondary to pneumonia, hospital-acquired. Sputum cultures were positive for Gram-negative bacilli. Organism is Serratia marcescens. Patient continues on antibiotic therapy. 10. Medical debility secondary to hospitalization and surgery. PLAN: Patient is progressing, however slowly. Patient has significant medical debility secondary to his surgery, for which physical therapy will continue as well as occupational therapy. Long-term planning for patient to go to inpatient rehab. Patient was seen by Inpatient Rehab today; patient is not quite ready for ( ) admission to inpatient rehab. Cardiology and Pulmonology will continue to follow and maintain their current treatment plans and regimen. No new changes have been made by these 2 groups. Will continue to monitor very closely. Patient may be ready for stepdown in care to [facility] later on today. Patient was seen and examined by nurse practitioner Fiorella Kapadia, and all elements of the case were discussed with attending, Dr. Long.
[2016-08-26 02:14] LABS: Glucose,Whole Blood 132 mg/dL (75-99)
[2016-08-26] MEDS: INSULIN LISPRO (humaLOG) 300 UNIT/3 ML VIAL SQ SCH ×6 (02:23→21:00)
[2016-08-26 06:29] LABS: Glucose,Whole Blood 121 mg/dL (75-99)
--- NOTE | 2016-08-26 07:13 | XR ---
EXAMINATION TYPE: XR chest 2V DATE OF EXAM: 08/26/2016 COMPARISON: 08/25/2016 HISTORY: Shortness of breath TECHNIQUE: Frontal and lateral views of the chest are obtained. FINDINGS: There is continued cardiomegaly with pulmonary venous congestion. Lung volumes are diminished. Basilar atelectasis or infiltrates persist. Right-sided PICC line is in place. Changes of median sternotomy and CABG. IMPRESSION: 1. No change in pulmonary venous congestion with basilar atelectasis or infiltrates.
[2016-08-26 07:22] LABS: Basophils % (A) 0 %; CHCM 32.7; Eosinophils # (A) 0.2 k/uL (0-0.7); Eosinophils % (A) 3 %; HCT 28.8 % (39.0-53.0); HDW 3.38; HGB 9.6 gm/dL (13.0-17.5); Hypochromasia Slight; Luc % (Auto) 2; Lymphocytes # (A) 1.4 k/uL (1.0-4.8); Lymphocytes % (A) 21 %; MCH 32.9 pg (25.0-35.0); MCHC 33.4 g/dL (31.0-37.0); MCV 98.5 fL (80.0-100.0); Macrocytosis Slight; Mean Platelet Volume 9.6; Monocytes # (A) 0.2 k/uL (0-1.0); Monocytes % (A) 3 %; Neutrophils # (A) 4.6 k/uL (1.3-7.7); Neutrophils % (A) 71 %; RBC 2.93 m/uL (4.30-5.90); RDW 15.3 % (11.5-15.5); WBC 6.4 k/uL (3.8-10.6); WBC (Perox) 6.98
[2016-08-26 07:27] LABS: ALT 63 U/L (21-72); AST 50 U/L (17-59); Alkaline Phosphatase 156 U/L (38-126); Anion Gap 5 mmol/L; Blood Urea Nitrogen 28 mg/dL (9-20); Carbon Dioxide 26 mmol/L (22-30); Chloride 111 mmol/L (98-107); Glucose 125 mg/dL (74-99); Magnesium 2.1 mg/dL (1.6-2.3); Non-African American GFR(MDRD) >60 (>60 ml/min/1.73 sqM); Potassium 3.9 mmol/L (3.5-5.1); Sodium 142 mmol/L (137-145); Total Bilirubin 1.2 mg/dL (0.2-1.3); Total Protein 5.1 g/dL (6.3-8.2)
[2016-08-26 07:30] LABS: INR 1.4 (<1.1); Prothrombin Time 13.4 sec (9.0-12.0)
[2016-08-26] MEDS: IPRATROPIUM-ALBUTEROL 3 ML NEB INHALATION SCH ×3 (07:46→20:38)
[2016-08-26] MEDS: ATORVASTATIN 40 MG TAB PO SCH (08:07)
[2016-08-26] MEDS: ASPIRIN 325 MG TAB PO SCH (08:07)
[2016-08-26] MEDS: AMIODARONE 200 MG TAB PO SCH (08:07)
[2016-08-26] MEDS: DORZOLAMIDE HCL 2% DROPS 10 ML BTL LEFT EYE SCH (08:08)
[2016-08-26] MEDS: ENOXAPARIN 80 MG/0.8 ML SYRINGE SQ SCH ×2 (08:09→23:28)
[2016-08-26] MEDS: FUROSEMIDE 10 MG/ML 2 ML VIAL IV SCH ×2 (08:09→23:28)
[2016-08-26] MEDS: NYSTATIN 100,000 UNIT/ML SUSP 500,000 UNIT/5 ML CUP PO SCH ×4 (08:10→23:30)
[2016-08-26] MEDS: PANTOPRAZOLE 40 MG TABLET PO SCH (08:10)
[2016-08-26] MEDS: METOPROLOL TARTRATE 25 MG TAB PO SCH ×2 (08:10→23:30)
[2016-08-26] MEDS: INSULN ASP PRT/INSULIN ASPART 100 UNIT/ML 10 ML VIAL SQ SCH (08:35)
--- NOTE | 2016-08-26 09:34 | P.PN ---
Subjective Principal diagnosis: Multivessel coronary artery disease POD #13 coronary artery bypass grafting 2 vessels (left internal mammary artery to left anterior descending artery, saphenous vein graft to obtuse marginal artery). Endoscopic vein harvest left greater saphenous vein. Epi- aortic ultrasound. Transesophageal echocardiogram. Postoperative acute hypoxic respiratory failure requiring mechanical ventilation , failure to wean secondary to Serratia marcescens pneumonia, an unexpected postoperative complication, likely pneumonia acquired prior to surgery. Postoperative paroxysmal atrial fibrillation, expected outcome, treated with amiodarone. History of DVT/PE, on chronic Coumadin. History of hyperlipidemia. Uncontrolled type 2 diabetes mellitus, hemoglobin A1c 7.0%. Currently sitting up in bed in no apparent distress, eating breakfast. Transfer out of ICU to [facility]. [facility] yesterday. Thornton catheter just discontinued. Was evaluated by Dr. Ortega yesterday, not appropriate for inpatient rehab at this time. Objective - Vital Signs Vital signs: Vital Signs Temp 96.4 F L 08/26/16 04:00 Pulse 69 08/26/16 04:00 Resp 16 08/26/16 04:00 BP 130/58 08/26/16 04:00 Pulse Ox 95 08/26/16 07:46 Intake & Output 08/25/16 08/26/16 08/26/16 18:59 06:59 18:59 Intake Total 520 Output Total 065 811 9090 Balance -263 -325 -1300 Weight 115 kg Intake: IV 100 cefTAZidime 2 gm In 100 Sodium Chloride 0.9% 100 ml @ 100 mls/hr IVPB Q12HR [facility] Rx#:[id number] Oral 420 Output: Urine 649 174 3786 Stool 3 Other: Voiding Method Indwelling Catheter Indwelling Catheter ABP, PAP, CO, CI - Last Documented Arterial Blood Pressure 144/51 Pulmonary Artery Pressure 41/23 Cardiac Output 7.4 Cardiac Index 3.3 - Constitutional General appearance: Present: cooperative, no acute distress, obese - Respiratory Details: Lungs sounds diminished bilaterally with coarse breath sounds bilateral bases. Respirations even, nonlabored. Currently on 2 L nasal cannula with oxygen saturation 95%. Only able to achieve 500 mL on his incentive spirometry. Minimally effective cough. - Cardiovascular Details: S1, S2 present. Regular rate and rhythm, normal sinus rhythm on telemetry. No A. fib events noted overnight. Sternum stable. Heart hugger in place with patient demonstrating appropriate use. Bilateral lower extremity edema still present. Teds/SCDs present. - Gastrointestinal Gastrointestinal Comment(s): abdomen soft, nontender, nondistended. Active bowel sounds 4 quadrants. Tolerating diet. - Genitourinary Genitourinary Comment(s): Thornton discontinue this morning, due to void. - Integumentary Integumentary Comment(s): Anterior chest incision well approximated and covered with clean dry intact dressing. Left lower extremity EVH site well approximated. - Musculoskeletal Musculoskeletal: Present: generalized weakness - Psychiatric Psychiatric: Present: A&O x's 3, appropriate affect, intact judgment & insight - Allied health notes Allied health notes reviewed: nursing - Labs CBC & Chem 7: 08/26/16 06:33 08/26/16 06:33 Labs: Abnormal Lab Results - Last 24 Hours (Table) 08/25/16 08/25/16 08/26/16 Range/Units 11:34 21:04 02:13 RBC (4.30-5.90) m/uL Hgb (13.0-17.5) gm/dL Hct (39.0-53.0) % Plt Count (150-450) k/uL PT (9.0-12.0) sec Chloride (98-107) mmol/L BUN (9-20) mg/dL Glucose (74-99) mg/dL POC Glucose (mg/dL) 162 H 134 H 132 H (75-99) mg/dL Calcium (8.4-10.2) mg/dL Alkaline Phosphatase (38-126) U/L Total Protein (6.3-8.2) g/dL Albumin (3.5-5.0) g/dL 08/26/16 08/26/16 08/26/16 Range/Units 06:23 06:33 06:33 RBC 2.93 L (4.30-5.90) m/uL Hgb 9.6 L (13.0-17.5) gm/dL Hct 28.8 L (39.0-53.0) % Plt Count 136 L (150-450) k/uL PT (9.0-12.0) sec Chloride 111 H (98-107) mmol/L BUN 28 H (9-20) mg/dL Glucose 125 H (74-99) mg/dL POC Glucose (mg/dL) 121 H (75-99) mg/dL Calcium 8.0 L (8.4-10.2) mg/dL Alkaline Phosphatase 156 H (38-126) U/L Total Protein 5.1 L (6.3-8.2) g/dL Albumin 2.2 L (3.5-5.0) g/dL 08/26/16 Range/Units 06:33 RBC (4.30-5.90) m/uL Hgb (13.0-17.5) gm/dL Hct (39.0-53.0) % Plt Count (150-450) k/uL PT 13.4 H (9.0-12.0) sec Chloride (98-107) mmol/L BUN (9-20) mg/dL Glucose (74-99) mg/dL POC Glucose (mg/dL) (75-99) mg/dL Calcium (8.4-10.2) mg/dL Alkaline Phosphatase (38-126) U/L Total Protein (6.3-8.2) g/dL Albumin (3.5-5.0) g/dL - Imaging and Cardiology Chest x-ray: report reviewed, image reviewed Assessment and Plan (1) Diabetes Status: Acute (2) Hyperlipidemia Status: Acute (3) History of pulmonary embolus (PE) Status: Acute (4) History of deep vein thrombosis Status: Acute (5) Thrombocytopenia Status: Acute (6) Coronary artery disease Status: Acute (7) Postoperative acute respiratory failure Status: Acute (8) Pneumonia due to Serratia marcescens Status: Acute (9) Paroxysmal atrial fibrillation Status: Acute Plan: 1. Continue aspirin, Lopressor, statin, Lasix. 2. Continue amiodarone for atrial fibrillation prophylaxis 3. Continue Lovenox secondary to history of DVT. Convert to Coumadin for anticoagulation. INR 1.4 this morning, will give 5 mg of Coumadin this evening. 4. Wean O2 as tolerated. Encourage incentive spirometry use. 5. Increase activity as tolerated. Physical therapy to follow. 6. Daily labs. 7. GI/DVT prophylaxis. 8. Appreciate physical therapy and occupational therapy recommendations, patient will need rehabilitation upon discharge, currently not a candidate for inpatient rehab per Dr. Ortega. Time with Patient: Greater than 30
--- NOTE | 2016-08-26 11:03 | PN ---
DATE OF SERVICE: 08/25/2016 ATTENDING NOTE: This patient was seen and examined by me on 08/25/2016. I reviewed the note of my nurse practitioner, Ms. Kapadia, and discussed additional note as below. The patient is status post CABG, doing well. Tolerating his diet. Had a burst of atrial fibrillation for which patient received amiodarone, back in sinus rhythm. Patient is comfortable. On examination, blood pressure 104/56, pulse ox 96% on 2 L. LUNGS: Slightly decreased breath sounds. CARDIOVASCULAR: First and second sounds normal. The patient is on Lovenox. ASSESSMENT: 1. Status post coronary artery bypass graft. 2. Diabetes mellitus type 2, chronically on insulin. 3. Chronic deep venous thrombosis on Coumadin long-term. PLAN: Continue current medication and treatment plan. Patient will continue with Coumadin. Looking at inpatient rehab.
--- NOTE | 2016-08-26 11:22 | P.PN ---
Subjective Principal diagnosis: S/P coronary artery bypass grafting surgery This is an 80-year-old gentleman who is status post coronary artery bypass grafting surgery.patient has had a prolonged coursepostoperatively, today is being followed on the telemetry unit. He has no complaints at the time of my examination, sitting up in the chair at bedside. Reaching 750 on his incentive spirometry. Blood pressure 109/60 with a heart rate in the 70s.Hemoglobin 9.6. Feeling much better overall today. Objective - Vital Signs Vital signs: Vital Signs Temp 96.4 F L 08/26/16 08:00 Pulse 75 08/26/16 08:00 Resp 16 08/26/16 08:00 BP 109/58 08/26/16 08:00 Pulse Ox 97 08/26/16 08:00 Intake & Output 08/25/16 08/26/16 08/26/16 18:59 06:59 18:59 Intake Total 520 180 Output Total 540 458 6941 Balance -263 -325 -1371 Weight 115 kg 121 kg Intake: IV 100 cefTAZidime 2 gm In 100 Sodium Chloride 0.9% 100 ml @ 100 mls/hr IVPB Q12HR [facility] Rx#:[id number] Oral 420 180 Output: Urine 894 064 3161 Stool 3 1 Other: Voiding Method Indwelling Catheter Indwelling Catheter Bedside Commode Urinal ABP, PAP, CO, CI - Last Documented Arterial Blood Pressure 144/51 Pulmonary Artery Pressure 41/23 Cardiac Output 7.4 Cardiac Index 3.3 - Exam PHYSICAL EXAMINATION: HEENT: Head is atraumatic, normocephalic. Pupils equal, round. Neck is supple. There is no elevated jugular venous pressure. HEART EXAMINATION: Heart S1, S2 normal. No murmur or gallop heard. CHEST EXAMINATION: Lungs are clear with diminished air entry to bilateral bases ABDOMEN: Soft, nontender. Bowel sounds are heard. No organomegaly noted. Right radial site clean and dry, good distal pulse. EXTREMITIES: 2+ peripheral pulses with 2+ evidence of peripheral edema and no calf tenderness noted. NEUROLOGIC patient is awake, alert and oriented -3. . - Labs CBC & Chem 7: 08/26/16 06:33 08/26/16 06:33 Labs: Abnormal Lab Results - Last 24 Hours (Table) 08/25/16 08/25/16 08/26/16 Range/Units 11:34 21:04 02:13 RBC (4.30-5.90) m/uL Hgb (13.0-17.5) gm/dL Hct (39.0-53.0) % Plt Count (150-450) k/uL PT (9.0-12.0) sec Chloride (98-107) mmol/L BUN (9-20) mg/dL Glucose (74-99) mg/dL POC Glucose (mg/dL) 162 H 134 H 132 H (75-99) mg/dL Calcium (8.4-10.2) mg/dL Alkaline Phosphatase (38-126) U/L Total Protein (6.3-8.2) g/dL Albumin (3.5-5.0) g/dL 08/26/16 08/26/16 08/26/16 Range/Units 06:23 06:33 06:33 RBC 2.93 L (4.30-5.90) m/uL Hgb 9.6 L (13.0-17.5) gm/dL Hct 28.8 L (39.0-53.0) % Plt Count 136 L (150-450) k/uL PT (9.0-12.0) sec Chloride 111 H (98-107) mmol/L BUN 28 H (9-20) mg/dL Glucose 125 H (74-99) mg/dL POC Glucose (mg/dL) 121 H (75-99) mg/dL Calcium 8.0 L (8.4-10.2) mg/dL Alkaline Phosphatase 156 H (38-126) U/L Total Protein 5.1 L (6.3-8.2) g/dL Albumin 2.2 L (3.5-5.0) g/dL 08/26/16 Range/Units 06:33 RBC (4.30-5.90) m/uL Hgb (13.0-17.5) gm/dL Hct (39.0-53.0) % Plt Count (150-450) k/uL PT 13.4 H (9.0-12.0) sec Chloride (98-107) mmol/L BUN (9-20) mg/dL Glucose (74-99) mg/dL POC Glucose (mg/dL) (75-99) mg/dL Calcium (8.4-10.2) mg/dL Alkaline Phosphatase (38-126) U/L Total Protein (6.3-8.2) g/dL Albumin (3.5-5.0) g/dL Assessment and Plan (1) S/P cardiac cath Status: Acute (2) Triple vessel coronary artery disease Status: Acute (3) Diabetes Status: Acute (4) History of deep vein thrombosis Status: Acute (5) History of pulmonary embolus (PE) Status: Acute (6) Hyperlipidemia Status: Acute (7) Thrombocytopenia Status: Acute (8) S/P CABG (coronary artery bypass graft) Status: Acute Plan: From cardiology's perspective, we will continue current medications. Progressing well. DNP note has been reviewed, I agree with a documented findings and plan of care. Patient was seen and examined.
[2016-08-26 11:56] LABS: Glucose,Whole Blood 170 mg/dL (75-99)
--- NOTE | 2016-08-26 12:08 | P.PN ---
Subjective Principal diagnosis: Coronary artery disease 80-year-old male patient, complaining of exertional dyspnea over the past several months. The patient denied having any chest pain. 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 The patient was found to have occluded right coronary artery with collaterals filling from the left. The patient was found to have critical disease involving the left main coronary artery and critical disease involving diffuse marginal branch of circumflex and proximal LAD. Based on this, coronary artery bypass surgery was recommended. The patient was seen by cardiothoracic surgery and the tentative plan to undergo surgery on this patient is on Tuesday. The preoperative echocardiogram showed a preserved LV function with an ejection fraction of 50-55%. No evidence of any pulmonary hypertension. No evidence of any valvular abnormalities. There is evidence of hypertensive heart disease with concentric left ventricular hypertrophy. Chest x-ray shows no acute cardio pulmonary process. He has history of pulmonary embolism and DVT and the patient has been maintained on anticoagulation on outpatient basis with warfarin. On today's evaluation of 08/11/2016 the patient is stable. The patient has no specific complaints. The patient is using his incentive spirometer. The patient was found to have chronic thrombocytopenia and for that reason a hematology consultation was obtained. History of any chest pain. He remains on IV heparin. Awaiting surgery on Tuesday. A bedside spirometry is still to be done. On 08/13/2016 I'm seeing this patient following his coronary bypass surgery. The patient underwent the surgery without any major complication. I discussed the case with the thoracic surgeon and the intraoperative course was essentially uncomplicated. The patient currently is intubated on mechanical ventilator. He is still sedated. He is hemodynamically stable. He is on a nitroglycerin and Cleviprex Drip for tight blood pressure control. The patient' s cardiac output is at 6.3 with an index of 2.8. PA pressures 29/17. The patient is also has his chest tubes in place with total amount of output being low at this point despite his underlying thrombocytopenia. He is also on an insulin drip at 40 units an hour for blood sugar control. Chest x-ray shows adequate expansion of both lungs and the chest tubes, ET tube and the Seattle-Laya catheter in place. The blood gases showed a pH of 7.31 with a pCO2 of 48 and pO2 of 115 and it was not an FiO2 of 100% and I wean down the FiO2 down to 70% and the saturation is currently above 95%. The patient is also on assist control mode of ventilation with a PEEP of 5 and FiO2 of 70% with a tidal volume of 550. His rate is at 12. Postoperative platelet counts is at 42,000. Hemoglobin is at 10.9. The patient has not required any platelet transfusions. On 08/14/2016 the patient remains intubated on a mechanical ventilator. We failed to wean and extubate this patient yesterday because of oxygenation problems. This morning, the patient remained on assist control mode at the rate of 12, tidal volume 500, FiO2 of 60% and a PEEP of 5. The most recent blood gases showed a pH of 7.44 with a pCO2 of 24 and pO2 of 67. Chest x-ray is showing regular postsurgical changes with a mediastinal and the pleural chest tubes in place, ET tube is in a good location. The patient hemodynamically stable. He remains on a combination of nitroglycerin and Cleviprex drip for blood pressure control. His cardiac output as above 7 and the index is at 3.5. Is producing adequate amount of urine output. He remains sedated with Diprivan which is running at 30 mics. Nitroglycerin drip is running at 5 mics per minute and the Cleviprex is at 60 mg an hour. The patient is also on insulin drip at 10 units an hour. Output from the chest tubes have been 20 mL an hour. Meanwhile the patient had developed an acute kidney injury with a creatinine being up to 1.3. The bicarb level is down to 16 and the patient has a informed of non-anion gap metabolic acidosis. On 08/15/2016, the patient remains intubated. I was unable to wean this patient off the mechanical ventilator for several reasons. First and foremost, the patient was having borderline oxygenation. At the later stage, the patient started acting septic where he started having chills and fever and purulent foul -smelling respiratory secretions were also suctioned from his orotracheal tube. Based on all this, cultures and pain and the patient was started on IV Fortaz. Meanwhile, the patient was given IV fluids, overnight he received a bolus of normal saline 1 L and 2 boluses of albumin 12.5 g which improved his urine output. At this point in time, the patient is postop day #2. He is resting comfortably in bed. He is sedated with Diprivan and is calm and comfortable. He is an assist-control mode of ventilation and the most recent vent settings include an assist-control of 12, tidal volume of 600, FiO2 of 70% and a PEEP of 8. The most recent blood gases showed a pH of 7.47 with a pCO2 of 30 and pO2 of 78. Nevertheless, his pulse ox currently on the monitor is at 99% and FiO2 has been drop down to 60% and we will gradually weaning it down to maintain a saturation above 95%. He is afebrile for now. He still has a right IJ Seattle-Laya catheter and hemodynamic parameters show a cardiac output of 6 with an index of 2.7. The patient's white cell count is not elevated at 5.7. He will was stable at 10.6. Renal function is impaired with a creatinine of 1.4. He is off the Catapres drip. He is off the nitroglycerin drip. He is producing around 20-30 mL of urine output on an hourly basis and he has gained significant amount of weight and there is third spacing. Chest x-ray shows increased tone vessel markings. ET tube and NG tube are all in good location. The KARL drain in the left lower extremity is in place and the total amount of output is 10 mL. The 2 mediastinal chest tubes in the left pleural chest tubes are also in place with minimal amount of output. Platelet count is stable at 40 ,000. He insulin drip is on hold for now. On 08/16/2016, patient remains intubated, his gases are very marginal, remains on FiO2 of 70%, PEEP is now up to 12, chest x-ray shows what looks like a right lower lobe pneumonia and consolidation in the medial aspect of the right lower lobe. Patient is on broad-spectrum antibiotics coverage. Ventilator settings were reviewed, she is presently on FiO2 of 70%, PEEP of 12, tidal volume of 550 assist control rate of 14. Labs were reviewed, WBC count is 11.9 hemoglobin is 10.9. ABG showed a pO2 of 61 pCO2 of 36 pH of 7.42. Basic metabolic profile is normal however his BUN is 41 and creatinine is 1.40 baseline creatinine was 1.0 on 08/13. Chest x-ray showed cardiomegaly, worsening by basilar airspace disease especially at the right base and small pleural effusions noted. Patient is receiving Lasix daily. Remains on propofol drip. And fully sedated. On 08/17/2016, patient seems to have made a significant improvement from the pulmonary perspective. I was able to cut down his FiO2 to 45%, PEEP is down to 5, tidal volume is 550, and assist control rate is 14. ABG this morning showed a pO2 of 84 pCO2 of 34 pH of 7.42. However when attempted to wean the patient, he went into atrial fibrillation with RVR, hence I decided to hold back on weaning and placed back on assist control mode of mechanical ventilation. CBC showed a hemoglobin of 10.4 WBC count is 8.3. Basic metabolic profile is normal BUN is 58 creatinine is 1.60. Yesterday, patient was placed on Lovenox at 80 mg subcu every 12 hours, and this is mostly to replace his Coumadin since the patient had previous history of hypercoagulable state and pulmonary embolism , and I felt it would be worthwhile placing him on Lovenox instead of Coumadin for the time being. This was also discussed with the surgeon on the case. Platelets remain about the same today compared to yesterday. Not much of a change but they have always been low. On 08/18/2016, patient remains on mechanical ventilation, sedated, patient failed weaning yesterday because of tachycardia and increased shortness of breath upon initial weaning trial. Today however I plan to discontinue propofol , and give him another weaning trial today. Patient seems to be hemodynamically stable. Heart rate is in the 60s. Vent settings tidal volume of 550 assist control of 14 FiO2 is 45% PEEP is 5. ABG showed a pO2 of 97 pCO2 of 35 pH of 7.46. Chest x-ray showed by basilardisease, and small pleural effusions right more so than left. Sputum has been positive for Serratia marcescens, patient remains on Fortaz. The Serratia marcescens is sensitive to Fortaz. CBC is showing WBC count of 6.2 hemoglobin 9.5. Electrolytes were noted to be normal. BUN is 49 creatinine is 1.42. Patient remains on Lovenox every 12 hours. On 08/19/2016, patient remains on mechanical ventilation, off all sedatives and narcotics, however the patient does not seem to be waking up appropriately as expected. Opens eyes at the most, does not follow any instructions, and this is in spite of holding sedation for the last 24 hours. He did receive 1 dose of Ativan last night for restlessness. At any rate I have recommended a CT of the brain today, and I recommended that we continue to hold all narcotics and sedatives, and this was the patient is awake and follows instructions, we will proceed with rapid weaning and possibly extubation today. However his mental status seems to be the main reason for not extubating the patient. Ventilator settings are basically the same, he remains on tidal volume of 550, assist control of 14, FiO2 of 45% and PEEP is 5. ABG showed a pO2 of 123 pCO2 of 30 and pH of 7.51. WBC count is 4.2 hemoglobin is 9.6. Renal profile is improving , BUN is 44 creatinine is 1.22. Sodium is a bit on the high side 146. On 08/20/2016, patient remains off sedation, he did receive 1 mg of Ativan last night for extreme tachypnea with respiratory rate going as high as 40. However patient settled down easily with Ativan, and follow-up ABG and chest x-ray this morning are showing definite improvement overall. Patient remains on mechanical ventilation. Ventilator settings are about the same, and I was able to cut down the PEEP from 8-5. Remains on 50% FiO2. Assist control rate is 12 and tidal volume is 550. ABG showed a pO2 of 122 pCO2 of 29 pH of 7.50. Electrolytes continued to show hypernatremia and BUN of 42 creatinine of 1.20, patient is receiving free water via nasogastric tube to correct his hypernatremia. Mentation serrano, patient seems to be a bit more awake today compared to the previous days. At least he is opening his eyes upon verbal stimulation, he is following simple instructions like wiggling toes, squeezing hands, and sticking tongue upon request. Seems to be very appropriate. But remained generally weak. And falls asleep easily if left alone. Reevaluated on 08/21/2016, patient remains off sedation, he seems to be a bit more awake today compared to the last few days. Patient is still responding to all verbal stimuli, seems to be generally weak, but again this is the best I have seen him in the last 7 days. Patient remains on mechanical ventilation, ventilator settings are basically the same. His ABG showed a pO2 of 104 pCO2 of 30 pH of 7.50 chest x-ray showed mostly by basilar atelectasis right more so than left. CBC showed a hemoglobin of 9.9 electrolytes showed elevated sodium of 150 which I plan to correct with free water flushes via nasogastric tube. BUN is 42 creatinine is 1.09. Patient is relatively asymptomatic except for being generally weak. Reevaluated on 08/22/2016, patient tolerated the extubation very well over the last 24 hours. He seems to be very appropriate, generally weak, but not as lethargic as he was over the last few days. Patient agreed to have a Dobbhoff tube placed and this was placed successfully, plan to start the Dobbhoff tube feeding to improve his nutritional status. Labs showed WBC count of 6.7 hemoglobin is 9.9. Sodium is down to 149 BUN is 38 creatinine is 1.11. Chest x -ray this morning showed low lung volumes, mild interstitial edema, no evidence of pneumonia. 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 His nutritional status is being addressed, patient is receiving tube feeding via Dobbhoff, his chest x- ray is showing significant improvement, his labs were all reviewed, sodium is improving it is down to 148 today. Hemoglobin is 9.9, blood sugar is 144 Patient is seen again today 08/25/2016 in follow-up in the intensive care unit. He is awake and alert in no acute distress. He denies any worsening shortness of breath, cough or congestion. He has been slow to progress. He was only able to stand at the bedside yesterday with physical therapy. They'll work with him again today. His chest x-ray reveals overall stable findings there is evidence of cardiomegaly with some mild central vascular congestion. No new infiltrates. He did receive an additional 20 mg of IV Lasix today. Maintaining O2 saturations in the low 90s on 2 L/m per nasal cannula. He's afebrile. He has had issues with atrial fibrillation with a rapid ventricular response in the high 190s to 200. He's received amiodarone boluses. Is currently in a sinus rhythm. Blood pressure stable. No other drips. The patient is seen again today 08/26/2016 in follow-up on the selective care unit. He is awake and alert in no acute distress. He is currently sitting up in a chair at the bedside. He's been working with physical therapy and taking a few steps today. He was seen and evaluated by Dr. Ortega who feels he is not quite ready for full inpatient rehabilitation at this point. He denies any worsening shortness of breath cough or congestion. The patient continues to do poorly with the incentive spirometer only getting 2 approximate 500 mL's. He is again encouraged regarding the increased use. He is maintaining good O2 saturations in the upper 90s on room air. He's been hemodynamically stable. Afebrile. His heart rate is regular with better rate control. Objective - Vital Signs Vital signs: Vital Signs Temp 96.4 F L 08/26/16 08:00 Pulse 75 08/26/16 08:00 Resp 16 08/26/16 08:00 BP 109/58 08/26/16 08:00 Pulse Ox 97 08/26/16 08:00 Intake & Output 08/25/16 08/26/16 08/26/16 18:59 06:59 18:59 Intake Total 520 180 Output Total 450 270 1397 Balance -263 -325 -1371 Weight 115 kg 121 kg Intake: IV 100 cefTAZidime 2 gm In 100 Sodium Chloride 0.9% 100 ml @ 100 mls/hr IVPB Q12HR [facility] Rx#:[id number] Oral 420 180 Output: Urine 270 050 2728 Stool 3 1 Other: Voiding Method Indwelling Catheter Indwelling Catheter Bedside Commode Urinal ABP, PAP, CO, CI - Last Documented Arterial Blood Pressure 144/51 Pulmonary Artery Pressure 41/23 Cardiac Output 7.4 Cardiac Index 3.3 - Exam GENERAL EXAM: Obese. Alert, fairly comfortable in no apparent distress. HEAD: Normocephalic. EYES: Normal reaction of pupils, equal size. NOSE: Clear with pink turbinates. THROAT: No erythema or exudates. NECK: No masses, no JVD. CHEST: Sternal dressing dry and intact. LUNGS: Equal air entry with us in the posterior bases. Diminished.. CVS: S1 and S2 normal with no audible murmurs, regular rhythm. ABDOMEN: No hepatosplenomegaly, normal bowel sounds, no guarding or rigidity. Extremities: There is 1-2+ peripheral edema. No clubbing, no cyanosis. Peripheral pulses are intact. - Labs CBC & Chem 7: 08/26/16 06:33 08/26/16 06:33 Labs: Abnormal Lab Results - Last 24 Hours (Table) 08/25/16 08/26/16 08/26/16 Range/Units 21:04 02:13 06:23 RBC (4.30-5.90) m/uL Hgb (13.0-17.5) gm/dL Hct (39.0-53.0) % Plt Count (150-450) k/uL PT (9.0-12.0) sec Chloride (98-107) mmol/L BUN (9-20) mg/dL Glucose (74-99) mg/dL POC Glucose (mg/dL) 134 H 132 H 121 H (75-99) mg/dL Calcium (8.4-10.2) mg/dL Alkaline Phosphatase (38-126) U/L Total Protein (6.3-8.2) g/dL Albumin (3.5-5.0) g/dL 08/26/16 08/26/16 08/26/16 Range/Units 06:33 06:33 06:33 RBC 2.93 L (4.30-5.90) m/uL Hgb 9.6 L (13.0-17.5) gm/dL Hct 28.8 L (39.0-53.0) % Plt Count 136 L (150-450) k/uL PT 13.4 H (9.0-12.0) sec Chloride 111 H (98-107) mmol/L BUN 28 H (9-20) mg/dL Glucose 125 H (74-99) mg/dL POC Glucose (mg/dL) (75-99) mg/dL Calcium 8.0 L (8.4-10.2) mg/dL Alkaline Phosphatase 156 H (38-126) U/L Total Protein 5.1 L (6.3-8.2) g/dL Albumin 2.2 L (3.5-5.0) g/dL 08/26/16 Range/Units 11:31 RBC (4.30-5.90) m/uL Hgb (13.0-17.5) gm/dL Hct (39.0-53.0) % Plt Count (150-450) k/uL PT (9.0-12.0) sec Chloride (98-107) mmol/L BUN (9-20) mg/dL Glucose (74-99) mg/dL POC Glucose (mg/dL) 170 H (75-99) mg/dL Calcium (8.4-10.2) mg/dL Alkaline Phosphatase (38-126) U/L Total Protein (6.3-8.2) g/dL Albumin (3.5-5.0) g/dL Assessment and Plan Plan: Impression: 1 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 The patient underwent coronary bypass surgery and currently is postop day #13. 2 postoperative hypoxemia with difficulties in weaning due to ongoing oxygenation problem. This was felt to be related to air space disease, and possible pneumonia involving the right lower lobe mostly. Could also be acute lung injury related. /This has resolved over the last few days. Patient was extubated 4 days ago. Taking good O2 saturations in the 90s on 2 L/m per nasal cannula. Chest x-ray shows evidence of small bilateral pleural effusions. 3 diabetes mellitus on insulin drip for blood sugar control 4 post thoracotomy respiratory failure, patient was difficult to wean until yesterday and he weaned and extubated uneventfully. 5 previous history of DVT and pulmonary embolism , maintained on warfarin outpatient basis, patient will be restarted on Lovenox 80 mg subcu every 12 hours beginning today. In the meantime we'll continue to monitor his low platelets. Patient has chronic thrombocytopenia to begin with. 6 thrombocytopenia him a stable with a platelet count, without evidence of any acute bleeding 7 acute kidney injury, creatinine is down to 1. 16. 8 postoperative respiratory failure, resolved, patient is now off mechanical ventilation. 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 Plan: The patient was seen and evaluated by Dr. Aviles. His chest x-ray and labs were reviewed. We'll continue with the patient's current medications. He is again educated regarding the increased use of the incentive spirometer and cough and deep breathing exercises. Physical therapy is working with the patient and is able to take a few steps today. He was seen and evaluated by Dr. Ortega for inpatient rehabilitation but is not a candidate at this point. We'll continue to follow.
[2016-08-26 16:29] LABS: Glucose,Whole Blood 117 mg/dL (75-99)
[2016-08-26] MEDS ORDERED: WARFARIN 5 MG TAB PO ONE (18:00)
[2016-08-26] MEDS: prednisoLONE ACETATE 1% OPHTH DROPS 1 ML BTL LEFT EYE SCH (18:17)
[2016-08-26 21:03] LABS: Glucose,Whole Blood 146 mg/dL (75-99)
[2016-08-26] MEDS: LATANOPROST 0.005% OPHTH DROPS 2.5 ML BTL BOTH EYES SCH (23:29)
[2016-08-26] MEDS: INSULIN NPH 300 UNIT/3 ML VIAL SQ SCH (23:29)
[2016-08-27 02:15] LABS: Glucose,Whole Blood 104 mg/dL (75-99)
[2016-08-27 06:15] LABS: Glucose,Whole Blood 119 mg/dL (75-99)
[2016-08-27 07:03] LABS: Basophils % (A) 0 %; CH 32.1; CHCM 32.3; Eosinophils # (A) 0.1 k/uL (0-0.7); Eosinophils % (A) 2 %; HCT 29.4 % (39.0-53.0); HDW 3.38; HGB 9.5 gm/dL (13.0-17.5); Hypochromasia Slight; Luc # (Auto) 0.11; Luc % (Auto) 2; Lymphocytes # (A) 1.4 k/uL (1.0-4.8); Lymphocytes % (A) 19 %; MCH 32.1 pg (25.0-35.0); MCHC 32.1 g/dL (31.0-37.0); Macrocytosis Slight; Mean Platelet Volume 9.5; Monocytes # (A) 0.3 k/uL (0-1.0); Monocytes % (A) 4 %; Neutrophils # (A) 5.6 k/uL (1.3-7.7); Neutrophils % (A) 74 %; RBC 2.94 m/uL (4.30-5.90); RDW 15.1 % (11.5-15.5); WBC 7.6 k/uL (3.8-10.6); WBC (Perox) 7.72
[2016-08-27 07:09] LABS: INR 1.4 (<1.1); Prothrombin Time 13.9 sec (9.0-12.0)
[2016-08-27 07:16] LABS: Ionized Calcium 4.8 mg/dL (4.5-5.3)
[2016-08-27 07:34] LABS: ALT 52 U/L (21-72); AST 51 U/L (17-59); Alkaline Phosphatase 143 U/L (38-126); Anion Gap 7 mmol/L; Blood Urea Nitrogen 28 mg/dL (9-20); Carbon Dioxide 23 mmol/L (22-30); Chloride 111 mmol/L (98-107); Glucose 117 mg/dL (74-99); Non-African American GFR(MDRD) >60 (>60 ml/min/1.73 sqM); Potassium 4.1 mmol/L (3.5-5.1); Sodium 141 mmol/L (137-145); Total Bilirubin 1.4 mg/dL (0.2-1.3); Total Protein 5.3 g/dL (6.3-8.2)
[2016-08-27] MEDS: IPRATROPIUM-ALBUTEROL 3 ML NEB INHALATION SCH ×3 (08:25→19:01)
--- NOTE | 2016-08-27 08:50 | P.PN ---
<Juliana Albright - Last Filed: 08/27/16 08:46> Subjective Principal diagnosis: Multivessel coronary artery disease POD #14 coronary artery bypass grafting 2 vessels (left internal mammary artery to left anterior descending artery, saphenous vein graft to obtuse marginal artery). Endoscopic vein harvest left greater saphenous vein. Epi- aortic ultrasound. Transesophageal echocardiogram. Postoperative acute hypoxic respiratory failure requiring mechanical ventilation , failure to wean secondary to Serratia marcescens pneumonia, an unexpected postoperative complication, likely pneumonia acquired prior to surgery. Postoperative paroxysmal atrial fibrillation, expected outcome, treated with amiodarone. History of DVT/PE, on chronic Coumadin. History of hyperlipidemia. Uncontrolled type 2 diabetes mellitus, hemoglobin A1c 7.0%. Currently sitting up in bed in no apparent distress, eating breakfast. Was evaluated by Dr. Ortega yesterday, not appropriate for inpatient rehab. Attempting to get a bed at [facility] for subacute rehab. Objective - Vital Signs Vital signs: Vital Signs Temp 97.5 F L 08/27/16 04:00 Pulse 73 08/27/16 04:00 Resp 18 08/27/16 04:00 BP 117/59 08/27/16 04:00 Pulse Ox 93 L 08/27/16 04:00 Intake & Output 08/26/16 08/27/16 08/27/16 18:59 06:59 18:59 Intake Total 416 Output Total 1653 205 Balance -1237 -205 Weight 121 kg 119 kg Intake: Oral 416 Output: Urine 1650 200 Stool 3 5 Other: Voiding Method Urinal Urinal # Voids 1 1 # Bowel Movements 1 ABP, PAP, CO, CI - Last Documented Arterial Blood Pressure 144/51 Pulmonary Artery Pressure 41/23 Cardiac Output 7.4 Cardiac Index 3.3 - Constitutional General appearance: Present: cooperative, no acute distress, obese - Respiratory Details: Lungs sounds diminished bilaterally. Respirations even, nonlabored. Currently on room air with oxygen saturation 93%. - Cardiovascular Details: S1, S2 present. Regular rate and rhythm, normal sinus rhythm on telemetry. Sternum stable. Heart hugger in place with patient demonstrating appropriate use. Teds/SCDs present. - Gastrointestinal Gastrointestinal Comment(s): Abdomen soft, nontender, nondistended. Active bowel sounds 4 quadrants. Tolerating diet. Positive bowel movement yesterday. - Genitourinary Genitourinary Comment(s): Continues to void clear, yellow urine per urinal. - Integumentary Integumentary Comment(s): Anterior chest incision well approximated and covered with clean dry intact dressing. Left lower extremity EVH site well approximated. Patient still has some drainage from the site, covered with dressing. - Musculoskeletal Musculoskeletal: Present: generalized weakness - Psychiatric Psychiatric: Present: A&O x's 3, appropriate affect, intact judgment & insight - Labs CBC & Chem 7: 08/27/16 06:32 08/27/16 06:32 Labs: Abnormal Lab Results - Last 24 Hours (Table) 08/26/16 08/26/16 08/26/16 Range/Units 11:31 16:26 21:01 RBC (4.30-5.90) m/uL Hgb (13.0-17.5) gm/dL Hct (39.0-53.0) % Plt Count (150-450) k/uL PT (9.0-12.0) sec Chloride (98-107) mmol/L BUN (9-20) mg/dL Glucose (74-99) mg/dL POC Glucose (mg/dL) 170 H 117 H 146 H (75-99) mg/dL Calcium (8.4-10.2) mg/dL Total Bilirubin (0.2-1.3) mg/dL Alkaline Phosphatase (38-126) U/L Total Protein (6.3-8.2) g/dL Albumin (3.5-5.0) g/dL 08/27/16 08/27/16 08/27/16 Range/Units 02:13 06:14 06:32 RBC 2.94 L (4.30-5.90) m/uL Hgb 9.5 L (13.0-17.5) gm/dL Hct 29.4 L (39.0-53.0) % Plt Count 126 L (150-450) k/uL PT (9.0-12.0) sec Chloride (98-107) mmol/L BUN (9-20) mg/dL Glucose (74-99) mg/dL POC Glucose (mg/dL) 104 H 119 H (75-99) mg/dL Calcium (8.4-10.2) mg/dL Total Bilirubin (0.2-1.3) mg/dL Alkaline Phosphatase (38-126) U/L Total Protein (6.3-8.2) g/dL Albumin (3.5-5.0) g/dL 08/27/16 08/27/16 Range/Units 06:32 06:32 RBC (4.30-5.90) m/uL Hgb (13.0-17.5) gm/dL Hct (39.0-53.0) % Plt Count (150-450) k/uL PT 13.9 H (9.0-12.0) sec Chloride 111 H (98-107) mmol/L BUN 28 H (9-20) mg/dL Glucose 117 H (74-99) mg/dL POC Glucose (mg/dL) (75-99) mg/dL Calcium 8.0 L (8.4-10.2) mg/dL Total Bilirubin 1.4 H (0.2-1.3) mg/dL Alkaline Phosphatase 143 H (38-126) U/L Total Protein 5.3 L (6.3-8.2) g/dL Albumin 2.3 L (3.5-5.0) g/dL Assessment and Plan (1) Diabetes Status: Acute (2) Hyperlipidemia Status: Acute (3) History of pulmonary embolus (PE) Status: Acute (4) History of deep vein thrombosis Status: Acute (5) Thrombocytopenia Status: Acute (6) Coronary artery disease Status: Acute (7) Postoperative acute respiratory failure Status: Acute (8) Pneumonia due to Serratia marcescens Status: Acute (9) Paroxysmal atrial fibrillation Status: Acute Plan: 1. Continue aspirin, Lopressor, statin, Lasix. 2. Continue amiodarone for atrial fibrillation prophylaxis 3. Continue Lovenox secondary to history of DVT. Convert to Coumadin for anticoagulation. INR 1.4 this morning, will give 5 mg of Coumadin this evening. 4. Encourage incentive spirometry use. 5. Increase activity as tolerated. Ambulate as able. Physical therapy to follow. 6. Daily labs. 7. GI/DVT prophylaxis. 8. May discharge to subacute rehab when bed available. Social work has sent information to [facility]. Time with Patient: Greater than 30 <Ramin Traore - Last Filed: 08/27/16 16:32> Objective - Vital Signs Vital signs: Vital Signs Temp 97.7 F 08/27/16 12:20 Pulse 42 L 08/27/16 12:20 Resp 18 08/27/16 12:20 BP 125/60 08/27/16 12:20 Pulse Ox 94 L 08/27/16 12:20 Intake & Output 08/26/16 08/27/16 08/27/16 18:59 06:59 18:59 Intake Total 416 400 Output Total 1653 205 301 Balance -1237 -205 99 Weight 121 kg 119 kg Intake: Oral 416 400 Output: Urine 1650 200 300 Stool 3 5 1 Other: Voiding Method Urinal Urinal Urinal # Voids 1 1 1 # Bowel Movements 1 ABP, PAP, CO, CI - Last Documented Arterial Blood Pressure 144/51 Pulmonary Artery Pressure 41/23 Cardiac Output 7.4 Cardiac Index 3.3 - Labs CBC & Chem 7: 08/27/16 06:32 08/27/16 06:32 Labs: Abnormal Lab Results - Last 24 Hours (Table) 08/26/16 08/27/16 08/27/16 Range/Units 21:01 02:13 06:14 RBC (4.30-5.90) m/uL Hgb (13.0-17.5) gm/dL Hct (39.0-53.0) % Plt Count (150-450) k/uL PT (9.0-12.0) sec Chloride (98-107) mmol/L BUN (9-20) mg/dL Glucose (74-99) mg/dL POC Glucose (mg/dL) 146 H 104 H 119 H (75-99) mg/dL Calcium (8.4-10.2) mg/dL Total Bilirubin (0.2-1.3) mg/dL Alkaline Phosphatase (38-126) U/L Total Protein (6.3-8.2) g/dL Albumin (3.5-5.0) g/dL 08/27/16 08/27/16 08/27/16 Range/Units 06:32 06:32 06:32 RBC 2.94 L (4.30-5.90) m/uL Hgb 9.5 L (13.0-17.5) gm/dL Hct 29.4 L (39.0-53.0) % Plt Count 126 L (150-450) k/uL PT 13.9 H (9.0-12.0) sec Chloride 111 H (98-107) mmol/L BUN 28 H (9-20) mg/dL Glucose 117 H (74-99) mg/dL POC Glucose (mg/dL) (75-99) mg/dL Calcium 8.0 L (8.4-10.2) mg/dL Total Bilirubin 1.4 H (0.2-1.3) mg/dL Alkaline Phosphatase 143 H (38-126) U/L Total Protein 5.3 L (6.3-8.2) g/dL Albumin 2.3 L (3.5-5.0) g/dL 08/27/16 Range/Units 11:47 RBC (4.30-5.90) m/uL Hgb (13.0-17.5) gm/dL Hct (39.0-53.0) % Plt Count (150-450) k/uL PT (9.0-12.0) sec Chloride (98-107) mmol/L BUN (9-20) mg/dL Glucose (74-99) mg/dL POC Glucose (mg/dL) 137 H (75-99) mg/dL Calcium (8.4-10.2) mg/dL Total Bilirubin (0.2-1.3) mg/dL Alkaline Phosphatase (38-126) U/L Total Protein (6.3-8.2) g/dL Albumin (3.5-5.0) g/dL Assessment and Plan (1) Coronary artery disease Status: Acute Plan: The patient was seen and examined. Agree with the above assessment and plan. We are awaiting placement in subacute rehab. In the meantime he continues to receive physical therapy. He will be given 5 mg of Coumadin tonight and we will continue his Lovenox until his INR is therapeutic. Otherwise we'll continue with his current medication regimen.
[2016-08-27] MEDS: INSULIN LISPRO (humaLOG) 300 UNIT/3 ML VIAL SQ SCH ×6 (08:58→22:48)
[2016-08-27] MEDS: ASPIRIN 325 MG TAB PO SCH (08:59)
[2016-08-27] MEDS: AMIODARONE 200 MG TAB PO SCH (08:59)
[2016-08-27] MEDS: ATORVASTATIN 40 MG TAB PO SCH (09:00)
[2016-08-27] MEDS: DORZOLAMIDE HCL 2% DROPS 10 ML BTL LEFT EYE SCH (09:00)
[2016-08-27] MEDS: ENOXAPARIN 80 MG/0.8 ML SYRINGE SQ SCH ×2 (09:00→22:42)
[2016-08-27] MEDS: METOPROLOL TARTRATE 25 MG TAB PO SCH ×2 (09:01→22:46)
[2016-08-27] MEDS: PANTOPRAZOLE 40 MG TABLET PO SCH (09:01)
[2016-08-27] MEDS: FUROSEMIDE 10 MG/ML 2 ML VIAL IV SCH ×3 (09:01→22:43)
[2016-08-27] MEDS: NYSTATIN 100,000 UNIT/ML SUSP 500,000 UNIT/5 ML CUP PO SCH ×4 (09:01→22:48)
[2016-08-27 12:14] LABS: Glucose,Whole Blood 137 mg/dL (75-99)
[2016-08-27] MEDS: INSULN ASP PRT/INSULIN ASPART 100 UNIT/ML 10 ML VIAL SQ SCH (12:30)
--- NOTE | 2016-08-27 13:03 | P.PN ---
Subjective Principal diagnosis: Coronary artery disease 80-year-old male patient, complaining of exertional dyspnea over the past several months. The patient denied having any chest pain. 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 The patient was found to have occluded right coronary artery with collaterals filling from the left. The patient was found to have critical disease involving the left main coronary artery and critical disease involving diffuse marginal branch of circumflex and proximal LAD. Based on this, coronary artery bypass surgery was recommended. The patient was seen by cardiothoracic surgery and the tentative plan to undergo surgery on this patient is on Tuesday. The preoperative echocardiogram showed a preserved LV function with an ejection fraction of 50-55%. No evidence of any pulmonary hypertension. No evidence of any valvular abnormalities. There is evidence of hypertensive heart disease with concentric left ventricular hypertrophy. Chest x-ray shows no acute cardio pulmonary process. He has history of pulmonary embolism and DVT and the patient has been maintained on anticoagulation on outpatient basis with warfarin. On today's evaluation of 08/11/2016 the patient is stable. The patient has no specific complaints. The patient is using his incentive spirometer. The patient was found to have chronic thrombocytopenia and for that reason a hematology consultation was obtained. History of any chest pain. He remains on IV heparin. Awaiting surgery on Tuesday. A bedside spirometry is still to be done. On 08/13/2016 I'm seeing this patient following his coronary bypass surgery. The patient underwent the surgery without any major complication. I discussed the case with the thoracic surgeon and the intraoperative course was essentially uncomplicated. The patient currently is intubated on mechanical ventilator. He is still sedated. He is hemodynamically stable. He is on a nitroglycerin and Cleviprex Drip for tight blood pressure control. The patient' s cardiac output is at 6.3 with an index of 2.8. PA pressures 29/17. The patient is also has his chest tubes in place with total amount of output being low at this point despite his underlying thrombocytopenia. He is also on an insulin drip at 40 units an hour for blood sugar control. Chest x-ray shows adequate expansion of both lungs and the chest tubes, ET tube and the Enoree-Laya catheter in place. The blood gases showed a pH of 7.31 with a pCO2 of 48 and pO2 of 115 and it was not an FiO2 of 100% and I wean down the FiO2 down to 70% and the saturation is currently above 95%. The patient is also on assist control mode of ventilation with a PEEP of 5 and FiO2 of 70% with a tidal volume of 550. His rate is at 12. Postoperative platelet counts is at 42,000. Hemoglobin is at 10.9. The patient has not required any platelet transfusions. On 08/14/2016 the patient remains intubated on a mechanical ventilator. We failed to wean and extubate this patient yesterday because of oxygenation problems. This morning, the patient remained on assist control mode at the rate of 12, tidal volume 500, FiO2 of 60% and a PEEP of 5. The most recent blood gases showed a pH of 7.44 with a pCO2 of 24 and pO2 of 67. Chest x-ray is showing regular postsurgical changes with a mediastinal and the pleural chest tubes in place, ET tube is in a good location. The patient hemodynamically stable. He remains on a combination of nitroglycerin and Cleviprex drip for blood pressure control. His cardiac output as above 7 and the index is at 3.5. Is producing adequate amount of urine output. He remains sedated with Diprivan which is running at 30 mics. Nitroglycerin drip is running at 5 mics per minute and the Cleviprex is at 60 mg an hour. The patient is also on insulin drip at 10 units an hour. Output from the chest tubes have been 20 mL an hour. Meanwhile the patient had developed an acute kidney injury with a creatinine being up to 1.3. The bicarb level is down to 16 and the patient has a informed of non-anion gap metabolic acidosis. On 08/15/2016, the patient remains intubated. I was unable to wean this patient off the mechanical ventilator for several reasons. First and foremost, the patient was having borderline oxygenation. At the later stage, the patient started acting septic where he started having chills and fever and purulent foul -smelling respiratory secretions were also suctioned from his orotracheal tube. Based on all this, cultures and pain and the patient was started on IV Fortaz. Meanwhile, the patient was given IV fluids, overnight he received a bolus of normal saline 1 L and 2 boluses of albumin 12.5 g which improved his urine output. At this point in time, the patient is postop day #2. He is resting comfortably in bed. He is sedated with Diprivan and is calm and comfortable. He is an assist-control mode of ventilation and the most recent vent settings include an assist-control of 12, tidal volume of 600, FiO2 of 70% and a PEEP of 8. The most recent blood gases showed a pH of 7.47 with a pCO2 of 30 and pO2 of 78. Nevertheless, his pulse ox currently on the monitor is at 99% and FiO2 has been drop down to 60% and we will gradually weaning it down to maintain a saturation above 95%. He is afebrile for now. He still has a right IJ Enoree-Laya catheter and hemodynamic parameters show a cardiac output of 6 with an index of 2.7. The patient's white cell count is not elevated at 5.7. He will was stable at 10.6. Renal function is impaired with a creatinine of 1.4. He is off the Catapres drip. He is off the nitroglycerin drip. He is producing around 20-30 mL of urine output on an hourly basis and he has gained significant amount of weight and there is third spacing. Chest x-ray shows increased tone vessel markings. ET tube and NG tube are all in good location. The KARL drain in the left lower extremity is in place and the total amount of output is 10 mL. The 2 mediastinal chest tubes in the left pleural chest tubes are also in place with minimal amount of output. Platelet count is stable at 40 ,000. He insulin drip is on hold for now. On 08/16/2016, patient remains intubated, his gases are very marginal, remains on FiO2 of 70%, PEEP is now up to 12, chest x-ray shows what looks like a right lower lobe pneumonia and consolidation in the medial aspect of the right lower lobe. Patient is on broad-spectrum antibiotics coverage. Ventilator settings were reviewed, she is presently on FiO2 of 70%, PEEP of 12, tidal volume of 550 assist control rate of 14. Labs were reviewed, WBC count is 11.9 hemoglobin is 10.9. ABG showed a pO2 of 61 pCO2 of 36 pH of 7.42. Basic metabolic profile is normal however his BUN is 41 and creatinine is 1.40 baseline creatinine was 1.0 on 08/13. Chest x-ray showed cardiomegaly, worsening by basilar airspace disease especially at the right base and small pleural effusions noted. Patient is receiving Lasix daily. Remains on propofol drip. And fully sedated. On 08/17/2016, patient seems to have made a significant improvement from the pulmonary perspective. I was able to cut down his FiO2 to 45%, PEEP is down to 5, tidal volume is 550, and assist control rate is 14. ABG this morning showed a pO2 of 84 pCO2 of 34 pH of 7.42. However when attempted to wean the patient, he went into atrial fibrillation with RVR, hence I decided to hold back on weaning and placed back on assist control mode of mechanical ventilation. CBC showed a hemoglobin of 10.4 WBC count is 8.3. Basic metabolic profile is normal BUN is 58 creatinine is 1.60. Yesterday, patient was placed on Lovenox at 80 mg subcu every 12 hours, and this is mostly to replace his Coumadin since the patient had previous history of hypercoagulable state and pulmonary embolism , and I felt it would be worthwhile placing him on Lovenox instead of Coumadin for the time being. This was also discussed with the surgeon on the case. Platelets remain about the same today compared to yesterday. Not much of a change but they have always been low. On 08/18/2016, patient remains on mechanical ventilation, sedated, patient failed weaning yesterday because of tachycardia and increased shortness of breath upon initial weaning trial. Today however I plan to discontinue propofol , and give him another weaning trial today. Patient seems to be hemodynamically stable. Heart rate is in the 60s. Vent settings tidal volume of 550 assist control of 14 FiO2 is 45% PEEP is 5. ABG showed a pO2 of 97 pCO2 of 35 pH of 7.46. Chest x-ray showed by basilardisease, and small pleural effusions right more so than left. Sputum has been positive for Serratia marcescens, patient remains on Fortaz. The Serratia marcescens is sensitive to Fortaz. CBC is showing WBC count of 6.2 hemoglobin 9.5. Electrolytes were noted to be normal. BUN is 49 creatinine is 1.42. Patient remains on Lovenox every 12 hours. On 08/19/2016, patient remains on mechanical ventilation, off all sedatives and narcotics, however the patient does not seem to be waking up appropriately as expected. Opens eyes at the most, does not follow any instructions, and this is in spite of holding sedation for the last 24 hours. He did receive 1 dose of Ativan last night for restlessness. At any rate I have recommended a CT of the brain today, and I recommended that we continue to hold all narcotics and sedatives, and this was the patient is awake and follows instructions, we will proceed with rapid weaning and possibly extubation today. However his mental status seems to be the main reason for not extubating the patient. Ventilator settings are basically the same, he remains on tidal volume of 550, assist control of 14, FiO2 of 45% and PEEP is 5. ABG showed a pO2 of 123 pCO2 of 30 and pH of 7.51. WBC count is 4.2 hemoglobin is 9.6. Renal profile is improving , BUN is 44 creatinine is 1.22. Sodium is a bit on the high side 146. On 08/20/2016, patient remains off sedation, he did receive 1 mg of Ativan last night for extreme tachypnea with respiratory rate going as high as 40. However patient settled down easily with Ativan, and follow-up ABG and chest x-ray this morning are showing definite improvement overall. Patient remains on mechanical ventilation. Ventilator settings are about the same, and I was able to cut down the PEEP from 8-5. Remains on 50% FiO2. Assist control rate is 12 and tidal volume is 550. ABG showed a pO2 of 122 pCO2 of 29 pH of 7.50. Electrolytes continued to show hypernatremia and BUN of 42 creatinine of 1.20, patient is receiving free water via nasogastric tube to correct his hypernatremia. Mentation serrano, patient seems to be a bit more awake today compared to the previous days. At least he is opening his eyes upon verbal stimulation, he is following simple instructions like wiggling toes, squeezing hands, and sticking tongue upon request. Seems to be very appropriate. But remained generally weak. And falls asleep easily if left alone. Reevaluated on 08/21/2016, patient remains off sedation, he seems to be a bit more awake today compared to the last few days. Patient is still responding to all verbal stimuli, seems to be generally weak, but again this is the best I have seen him in the last 7 days. Patient remains on mechanical ventilation, ventilator settings are basically the same. His ABG showed a pO2 of 104 pCO2 of 30 pH of 7.50 chest x-ray showed mostly by basilar atelectasis right more so than left. CBC showed a hemoglobin of 9.9 electrolytes showed elevated sodium of 150 which I plan to correct with free water flushes via nasogastric tube. BUN is 42 creatinine is 1.09. Patient is relatively asymptomatic except for being generally weak. Reevaluated on 08/22/2016, patient tolerated the extubation very well over the last 24 hours. He seems to be very appropriate, generally weak, but not as lethargic as he was over the last few days. Patient agreed to have a Dobbhoff tube placed and this was placed successfully, plan to start the Dobbhoff tube feeding to improve his nutritional status. Labs showed WBC count of 6.7 hemoglobin is 9.9. Sodium is down to 149 BUN is 38 creatinine is 1.11. Chest x -ray this morning showed low lung volumes, mild interstitial edema, no evidence of pneumonia. Reevaluated today on 08/23/2016, patient continues to do relatively well, however were still dealing with a significantly and profoundly weak patient, and he will likely require a tow motor mechanic of rehabilitation before he will be able to ambulate on his own. 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 His nutritional status is being addressed, patient is receiving tube feeding via Dobbhoff, his chest x- ray is showing significant improvement, his labs were all reviewed, sodium is improving it is down to 148 today. Hemoglobin is 9.9, blood sugar is 144 Patient is seen again today 08/25/2016 in follow-up in the intensive care unit. He is awake and alert in no acute distress. He denies any worsening shortness of breath, cough or congestion. He has been slow to progress. He was only able to stand at the bedside yesterday with physical therapy. They'll work with him again today. His chest x-ray reveals overall stable findings there is evidence of cardiomegaly with some mild central vascular congestion. No new infiltrates. He did receive an additional 20 mg of IV Lasix today. Maintaining O2 saturations in the low 90s on 2 L/m per nasal cannula. He's afebrile. He has had issues with atrial fibrillation with a rapid ventricular response in the high 190s to 200. He's received amiodarone boluses. Is currently in a sinus rhythm. Blood pressure stable. No other drips. The patient is seen again today 08/26/2016 in follow-up on the selective care unit. He is awake and alert in no acute distress. He is currently sitting up in a chair at the bedside. He's been working with physical therapy and taking a few steps today. He was seen and evaluated by Dr. Ortega who feels he is not quite ready for full inpatient rehabilitation at this point. He denies any worsening shortness of breath cough or congestion. The patient continues to do poorly with the incentive spirometer only getting 2 approximate 500 mL's. He is again encouraged regarding the increased use. He is maintaining good O2 saturations in the upper 90s on room air. He's been hemodynamically stable. Afebrile. His heart rate is regular with better rate control. The patient is seen again today 08/27/2016 in follow-up on the selective care unit. He is currently resting quite comfortably in bed. He is awake and alert in no acute distress. He still needs increased encouragement regarding the use of the incentive spirometer. Currently only pulling between 507 or 50 MLS. He does deny any worsening shortness of breath, cough or congestion. He is maintaining O2 saturations in the 90s on room air. He's been up with assistance. Objective - Vital Signs Vital signs: Vital Signs Temp 97.1 F L 08/27/16 07:45 Pulse 45 L 08/27/16 07:45 Resp 18 08/27/16 07:45 BP 125/81 08/27/16 07:45 Pulse Ox 91 L 08/27/16 07:45 Intake & Output 08/26/16 08/27/16 08/27/16 18:59 06:59 18:59 Intake Total 416 Output Total 1653 205 301 Balance -1237 - -301 Weight 121 kg 119 kg Intake: Oral 416 Output: Urine 1650 200 300 Stool 3 5 1 Other: Voiding Method Urinal Urinal Urinal # Voids 1 1 # Bowel Movements 1 ABP, PAP, CO, CI - Last Documented Arterial Blood Pressure 144/51 Pulmonary Artery Pressure 41/23 Cardiac Output 7.4 Cardiac Index 3.3 - Exam GENERAL EXAM: Obese. Alert, fairly comfortable in no apparent distress. HEAD: Normocephalic. EYES: Normal reaction of pupils, equal size. NOSE: Clear with pink turbinates. THROAT: No erythema or exudates. NECK: No masses, no JVD. CHEST: Sternal dressing dry and intact. LUNGS: Equal air entry with us in the posterior bases. Diminished.. CVS: S1 and S2 normal with no audible murmurs, regular rhythm. ABDOMEN: No hepatosplenomegaly, normal bowel sounds, no guarding or rigidity. Extremities: There is 1-2+ peripheral edema. No clubbing, no cyanosis. Peripheral pulses are intact. - Labs CBC & Chem 7: 08/27/16 06:32 08/27/16 06:32 Labs: Abnormal Lab Results - Last 24 Hours (Table) 08/26/16 08/26/16 08/27/16 Range/Units 16:26 21:01 02:13 RBC (4.30-5.90) m/uL Hgb (13.0-17.5) gm/dL Hct (39.0-53.0) % Plt Count (150-450) k/uL PT (9.0-12.0) sec Chloride (98-107) mmol/L BUN (9-20) mg/dL Glucose (74-99) mg/dL POC Glucose (mg/dL) 117 H 146 H 104 H (75-99) mg/dL Calcium (8.4-10.2) mg/dL Total Bilirubin (0.2-1.3) mg/dL Alkaline Phosphatase (38-126) U/L Total Protein (6.3-8.2) g/dL Albumin (3.5-5.0) g/dL 08/27/16 08/27/16 08/27/16 Range/Units 06:14 06:32 06:32 RBC 2.94 L (4.30-5.90) m/uL Hgb 9.5 L (13.0-17.5) gm/dL Hct 29.4 L (39.0-53.0) % Plt Count 126 L (150-450) k/uL PT (9.0-12.0) sec Chloride 111 H (98-107) mmol/L BUN 28 H (9-20) mg/dL Glucose 117 H (74-99) mg/dL POC Glucose (mg/dL) 119 H (75-99) mg/dL Calcium 8.0 L (8.4-10.2) mg/dL Total Bilirubin 1.4 H (0.2-1.3) mg/dL Alkaline Phosphatase 143 H (38-126) U/L Total Protein 5.3 L (6.3-8.2) g/dL Albumin 2.3 L (3.5-5.0) g/dL 08/27/16 08/27/16 Range/Units 06:32 11:47 RBC (4.30-5.90) m/uL Hgb (13.0-17.5) gm/dL Hct (39.0-53.0) % Plt Count (150-450) k/uL PT 13.9 H (9.0-12.0) sec Chloride (98-107) mmol/L BUN (9-20) mg/dL Glucose (74-99) mg/dL POC Glucose (mg/dL) 137 H (75-99) mg/dL Calcium (8.4-10.2) mg/dL Total Bilirubin (0.2-1.3) mg/dL Alkaline Phosphatase (38-126) U/L Total Protein (6.3-8.2) g/dL Albumin (3.5-5.0) g/dL Assessment and Plan Plan: Impression: 1 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 The patient underwent coronary bypass surgery and currently is postop day #14. 2 postoperative hypoxemia with difficulties in weaning due to ongoing oxygenation problem. This was felt to be related to air space disease, and possible pneumonia involving the right lower lobe mostly. Could also be acute lung injury related. This has resolved. 3 diabetes mellitus on insulin drip for blood sugar control 4 post thoracotomy respiratory failure, patient was difficult to wean until yesterday and he weaned and extubated uneventfully. 5 previous history of DVT and pulmonary embolism , maintained on warfarin outpatient basis, patient will be restarted on Lovenox 80 mg subcu every 12 hours beginning today. In the meantime we'll continue to monitor his low platelets. Patient has chronic thrombocytopenia to begin with. 6 thrombocytopenia him a stable with a platelet count, without evidence of any acute bleeding 7 acute kidney injury, creatinine is down to 1. 11. 8 postoperative respiratory failure, resolved, patient is now off mechanical ventilation. 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 Plan: The patient was seen and evaluated by Dr. Aviles. He is again educated regarding the increased use of the incentive spirometer and cough and deep breathing exercises. Physical therapy is working with the patient and is able to take a few steps today. He is awaiting placement to an extended care facility for continued inpatient rehabilitation.
--- NOTE | 2016-08-27 14:50 | P.PN ---
Subjective Principal diagnosis: Status post coronary artery bypass grafting surgery This is an 80-year-old gentleman who is status post coronary artery bypass grafting surgery. Patient has had a prolonged postoperative course. At the time of my examination, patient is doing quite well. He is using his incentive spirometry and reaching 750 ML's. Blood pressure is stable. Patient did have a brief run of paroxysmal atrial fibrillation with rapid ventricular response lasting less than 5 minutes while getting up to the chair this morning. He is on amiodarone as well as Lovenox and Coumadin. Objective - Vital Signs Vital signs: Vital Signs Temp 97.7 F 08/27/16 12:20 Pulse 42 L 08/27/16 12:20 Resp 18 08/27/16 12:20 BP 125/60 08/27/16 12:20 Pulse Ox 94 L 08/27/16 12:20 Intake & Output 08/26/16 08/27/16 08/27/16 18:59 06:59 18:59 Intake Total 416 Output Total 1653 205 301 Balance -1237 -205 -301 Weight 121 kg 119 kg Intake: Oral 416 Output: Urine 1650 200 300 Stool 3 5 1 Other: Voiding Method Urinal Urinal Urinal # Voids 1 1 # Bowel Movements 1 ABP, PAP, CO, CI - Last Documented Arterial Blood Pressure 144/51 Pulmonary Artery Pressure 41/23 Cardiac Output 7.4 Cardiac Index 3.3 - Exam PHYSICAL EXAMINATION: HEENT: Head is atraumatic, normocephalic. Pupils equal, round. Neck is supple. There is no elevated jugular venous pressure. HEART EXAMINATION: Heart sounds regular, S1 and S2 normal. No murmur or gallop heard. CHEST EXAMINATION: Lungs are clear with diminished air entry to bilateral lower lobes. No chest wall tenderness is noted on palpation or with deep breathing. Sternal incision with dressing dry and intact. ABDOMEN: Soft, nontender. Bowel sounds are heard. No organomegaly noted. EXTREMITIES: 2+ peripheral pulses with evidence of 2+ peripheral edema and no calf tenderness noted. Right radial site clean and dry, good distal pulse. NEUROLOGIC patient is awake, alert and oriented x3. . - Labs CBC & Chem 7: 08/27/16 06:32 08/27/16 06:32 Labs: Abnormal Lab Results - Last 24 Hours (Table) 08/26/16 08/26/16 08/27/16 Range/Units 16:26 21:01 02:13 RBC (4.30-5.90) m/uL Hgb (13.0-17.5) gm/dL Hct (39.0-53.0) % Plt Count (150-450) k/uL PT (9.0-12.0) sec Chloride (98-107) mmol/L BUN (9-20) mg/dL Glucose (74-99) mg/dL POC Glucose (mg/dL) 117 H 146 H 104 H (75-99) mg/dL Calcium (8.4-10.2) mg/dL Total Bilirubin (0.2-1.3) mg/dL Alkaline Phosphatase (38-126) U/L Total Protein (6.3-8.2) g/dL Albumin (3.5-5.0) g/dL 08/27/16 08/27/16 08/27/16 Range/Units 06:14 06:32 06:32 RBC 2.94 L (4.30-5.90) m/uL Hgb 9.5 L (13.0-17.5) gm/dL Hct 29.4 L (39.0-53.0) % Plt Count 126 L (150-450) k/uL PT (9.0-12.0) sec Chloride 111 H (98-107) mmol/L BUN 28 H (9-20) mg/dL Glucose 117 H (74-99) mg/dL POC Glucose (mg/dL) 119 H (75-99) mg/dL Calcium 8.0 L (8.4-10.2) mg/dL Total Bilirubin 1.4 H (0.2-1.3) mg/dL Alkaline Phosphatase 143 H (38-126) U/L Total Protein 5.3 L (6.3-8.2) g/dL Albumin 2.3 L (3.5-5.0) g/dL 08/27/16 08/27/16 Range/Units 06:32 11:47 RBC (4.30-5.90) m/uL Hgb (13.0-17.5) gm/dL Hct (39.0-53.0) % Plt Count (150-450) k/uL PT 13.9 H (9.0-12.0) sec Chloride (98-107) mmol/L BUN (9-20) mg/dL Glucose (74-99) mg/dL POC Glucose (mg/dL) 137 H (75-99) mg/dL Calcium (8.4-10.2) mg/dL Total Bilirubin (0.2-1.3) mg/dL Alkaline Phosphatase (38-126) U/L Total Protein (6.3-8.2) g/dL Albumin (3.5-5.0) g/dL Assessment and Plan Plan: #1 triple-vessel coronary artery disease, status post coronary artery bypass grafting #2 diabetes #3 hyperlipidemia #4 paroxysmal atrial fibrillation #5 history of DVT and PE #6 thrombocytopenia From cardiology's perspective, medications were reviewed and we will continue the same. Patient appears to be progressing well. We'll continue follow the patient and provide further recommendations accordingly. The above dictated assessment and findings were discussed with signing physician. The impression and plan of care have been directed as dictated. Rosemarie Weir, Nurse Practitioner, acting as scribe for signing physician.
--- NOTE | 2016-08-27 14:59 | PN ---
DATE OF SERVICE: 08/26/2016 PRESENTING COMPLAINT: Tired. INTERVAL HISTORY: This patient was seen by me yesterday on 08/25/16. Patient is status post CABG. Tolerating some diet. Patient did sit up with Physical Therapy. A bit tired. Slightly short of breath. Review of systems done for constitutional, cardiovascular, GI, pulmonary; relevant findings as above. Current medications are reviewed. On examination, temperature 96.8, pulse 69, respiration 18, blood pressure of 102/59, pulse ox 92% on room air. GENERAL APPEARANCE: Lying in bed, tired-appearing. EYES: Pupils equal. Conjunctivae normal. NECK: JVD unable to assess. Mass not palpable. RESPIRATORY: Effort increased. LUNGS: Diminished breath sounds. CARDIOVASCULAR: First and second sounds normal. Some edema present. ABDOMEN: Soft, nontender. Liver and spleen not palpable. PSYCHIATRY: Alert and oriented x3. Mood and affect tired-appearing. INVESTIGATIONS: White count 6.4, hemoglobin 9.6. Potassium 3.9. BUN 28, creatinine 1.16. Chest x-ray shows some atelectasis. ASSESSMENT: 1. Status post coronary artery bypass grafting. 2. Coronary artery disease. 3. Diabetes mellitus, type 2, on oral hypoglycemic. 4. Chronic deep venous thrombosis, pulmonary embolism, on Coumadin. 5. 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 6. Benign prostatic hypertrophy. 7. 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 8. Pneumonia secondary to Serratia marcescens, clinically improving. 9. Medical debility. 10. Acute postoperative blood loss anemia as expected from surgery. PLAN: Continue current medication and treatment plan. Patient is being seen by Physical Therapy, also. Care was discussed with the patient. Will follow.
[2016-08-27 17:20] LABS: Glucose,Whole Blood 98 mg/dL (75-99)
[2016-08-27] MEDS ORDERED: WARFARIN 5 MG TAB PO ONE (18:00)
[2016-08-27 20:59] LABS: Glucose,Whole Blood 98 mg/dL (75-99)
--- NOTE | 2016-08-27 21:57 | PN ---
DATE OF SERVICE: 08/27/2016 PRESENTING COMPLAINT: Chest pain. INTERVAL HISTORY: This is a patient who is status post CABG progressing slowly. Patient is tolerating his diet working with physical therapy. Complained of being a bit tired. Mild shortness of breath. Review of systems done for constitutional, cardiovascular, GI, pulmonary, with relevant findings as above. CURRENT MEDICATIONS: 1. Amiodarone 200 mg p.o. daily. 2. Aspirin 325 mg p.o. daily. 3. Lipitor 40 mg p.o. daily. 4. Lovenox 80 mg subcutaneously q.12 hours. 5. Lasix 20 mg IV push q.12 hours. 6. Metoprolol 25 mg p.o. b.i.d. PHYSICAL EXAMINATION: VITAL SIGNS: Temperature 97.1, pulse 45, respiratory rate 16, blood pressure 125/81, oxygen saturation 91% on room air. GENERAL APPEARANCE: Patient is lying in bed. No acute complaints noted, breathing easily. EYES: Pupils equal. Conjunctivae normal. NECK: JVD unable to assess. Mass not palpable. RESPIRATORY: Effort increased. LUNGS: Diminished breath sounds bilaterally. CARDIOVASCULAR: First and second sounds noted. Generalized edema present. ABDOMEN: Soft, nontender. Liver and spleen not palpable. PSYCHIATRY: Alert and oriented x3. Mood and affect are tired appearing. INVESTIGATIONS: Hemoglobin 9.5, INR 1.4. Blood sugar 117, BUN 28, creatinine 1.11. ASSESSMENT: 1. Status post coronary artery bypass grafting. 2. Coronary artery disease. 3. Diabetes mellitus, type II, on oral hypoglycemic. 4. Chronic deep vein thrombosis, pulmonary embolism, on Coumadin. 5. Primary osteoarthritis multiple joints bilaterally. 6. Benign prosthetic hypertrophy. 7. Thrombocytopenia, likely, idiopathic thrombocytopenic purpura. 8. Pneumonia secondary to Serratia Marcescens clinically improving. 9. Medical debility. 10. Acute postoperative blood loss anemia as expected from surgery. PLAN: [facility]. Patient will continue to work with physical therapy and current medication and treatment plan will be continued. Plan of care was discussed with the patient. Patient is in agreement. Patient was seen and examined by nurse practitioner, Fiorella Kapadia, and all elements of the case discussed with attending, Dr. Long. I performed a history and physical examination of this patient and discussed the same with the dictator. I agree with the dictator's note. Any additional findings/opinions, etc. will be noted.
--- NOTE | 2016-08-27 22:12 | PN ---
DATE OF SERVICE: 08/27/2016 ATTENDING NOTE: This patient was seen and examined by me earlier today. The patient is status post CABG, weak and tired, did tolerate some diet. On exam, LUNGS: Decreased breath sounds. CARDIOVASCULAR: First and second sounds normal. Some edema is present. INVESTIGATIONS: Hemoglobin is 9.5. ASSESSMENT: 1. Status post coronary artery bypass grafting. 2. Medical debility. PLAN: Continue with physical therapy. Care was discussed with the patient. INR is 1.4. Encouraged to increase oral intake.
[2016-08-27] MEDS: LATANOPROST 0.005% OPHTH DROPS 2.5 ML BTL BOTH EYES SCH (22:44)
[2016-08-27] MEDS: INSULIN NPH 300 UNIT/3 ML VIAL SQ SCH (22:44)
[2016-08-28 02:04] LABS: Glucose,Whole Blood 71 mg/dL (75-99)
[2016-08-28 06:00] LABS: Glucose,Whole Blood 82 mg/dL (75-99)
[2016-08-28] MEDS: INSULIN LISPRO (humaLOG) 300 UNIT/3 ML VIAL SQ SCH ×6 (06:19→22:24)
[2016-08-28 07:32] LABS: Ionized Calcium 4.9 mg/dL (4.5-5.3)
[2016-08-28 07:43] LABS: INR 1.4 (<1.1); Prothrombin Time 13.9 sec (9.0-12.0)
[2016-08-28 07:47] LABS: Basophils % (A) 0 %; CH 32.2; CHCM 32.5; Eosinophils # (A) 0.1 k/uL (0-0.7); Eosinophils % (A) 2 %; HCT 29.5 % (39.0-53.0); HGB 9.4 gm/dL (13.0-17.5); Hypochromasia Slight; Luc % (Auto) 2; Lymphocytes % (A) 22 %; MCH 31.9 pg (25.0-35.0); MCV 99.8 fL (80.0-100.0); Macrocytosis Slight; Mean Platelet Volume 9.4; Monocytes # (A) 0.2 k/uL (0-1.0); Monocytes % (A) 4 %; Neutrophils # (A) 3.2 k/uL (1.3-7.7); Neutrophils % (A) 69 %; Poikilocytosis Slight; RBC 2.96 m/uL (4.30-5.90); RDW 15.1 % (11.5-15.5); WBC 4.6 k/uL (3.8-10.6); WBC (Perox) 4.93
[2016-08-28 08:01] LABS: ALT 51 U/L (21-72); AST 35 U/L (17-59); Alkaline Phosphatase 127 U/L (38-126); Anion Gap 6 mmol/L; Blood Urea Nitrogen 26 mg/dL (9-20); Carbon Dioxide 24 mmol/L (22-30); Chloride 112 mmol/L (98-107); Glucose 88 mg/dL (74-99); Non-African American GFR(MDRD) >60 (>60 ml/min/1.73 sqM); Potassium 3.8 mmol/L (3.5-5.1); Sodium 142 mmol/L (137-145); Total Bilirubin 1.2 mg/dL (0.2-1.3); Total Protein 5.1 g/dL (6.3-8.2)
[2016-08-28] MEDS ORDERED: POTASSIUM CHLORIDE ER 20 MEQ TAB.ER PO SCH (09:00)
[2016-08-28] MEDS: IPRATROPIUM-ALBUTEROL 3 ML NEB INHALATION SCH ×3 (09:09→20:44)
[2016-08-28] MEDS: ASPIRIN 325 MG TAB PO SCH (09:14)
[2016-08-28] MEDS: ATORVASTATIN 40 MG TAB PO SCH (09:14)
[2016-08-28] MEDS: AMIODARONE 200 MG TAB PO SCH (09:14)
[2016-08-28] MEDS: DORZOLAMIDE HCL 2% DROPS 10 ML BTL LEFT EYE SCH (09:15)
[2016-08-28] MEDS: ENOXAPARIN 80 MG/0.8 ML SYRINGE SQ SCH ×2 (09:15→22:18)
[2016-08-28] MEDS: PANTOPRAZOLE 40 MG TABLET PO SCH (09:16)
[2016-08-28] MEDS: NYSTATIN 100,000 UNIT/ML SUSP 500,000 UNIT/5 ML CUP PO SCH ×4 (09:16→22:24)
[2016-08-28] MEDS: INSULN ASP PRT/INSULIN ASPART 100 UNIT/ML 10 ML VIAL SQ SCH (09:17)
[2016-08-28] MEDS: FUROSEMIDE 10 MG/ML 2 ML VIAL IV SCH (09:17)
--- NOTE | 2016-08-28 10:32 | P.PN ---
<Sarabjit Awan L - Last Filed: 08/28/16 10:31> Progress Note - Text CV Surgery Nursing Principal diagnosis: Multivessel coronary artery disease POD #15 coronary artery bypass grafting 2 vessels (left internal mammary artery to left anterior descending artery, saphenous vein graft to obtuse marginal artery). Endoscopic vein harvest left greater saphenous vein. Epi- aortic ultrasound. Transesophageal echocardiogram. Postoperative acute hypoxic respiratory failure requiring mechanical ventilation , failure to wean secondary to Serratia marcescens pneumonia, an unexpected postoperative complication, likely pneumonia acquired prior to surgery. Postoperative paroxysmal atrial fibrillation, expected outcome, treated with amiodarone. History of DVT/PE, on chronic Coumadin. History of hyperlipidemia. Uncontrolled type 2 diabetes mellitus, hemoglobin A1c 7.0%. Patient awake and alert, no distress noted, no specific complaints. Sitting up to bedside chair. Vital Signs: Afebrile Vital Signs - 24 hr 08/27/16 08/27/16 08/27/16 12:20 14:50 20:00 Temperature 97.7 F 96.8 F L Pulse Rate [ 42 L 79 74 Pulse Oximetery ] Respiratory 18 18 18 Rate Blood Pressure 120/57 [Left Arm Supine] Blood Pressure 125/60 127/58 [Right Arm Supine] O2 Sat by Pulse 94 L 91 L 92 L Oximetry 08/28/16 08/28/16 00:00 04:00 Temperature 98.1 F Pulse Rate [ 74 83 Pulse Oximetery ] Respiratory 18 18 Rate Blood Pressure 127/58 [Left Arm Supine] Blood Pressure 106/62 [Right Arm Supine] O2 Sat by Pulse 92 L 93 L Oximetry Labs: Short CBC 08/28/16 Range/Units 07:01 WBC 4.6 (3.8-10.6) k/uL Hgb 9.4 L (13.0-17.5) gm/dL Hct 29.5 L (39.0-53.0) % Plt Count 122 L (150-450) k/uL Neutrophils # 3.2 (1.3-7.7) k/uL BMP 08/28/16 07:01 Sodium 142 Potassium 3.8 Chloride 112 H Carbon Dioxide 24 BUN 26 H Creatinine 0.98 Glucose 88 Calcium 8.0 L Liver Function 08/28/16 Range/Units 07:01 Total Bilirubin 1.2 (0.2-1.3) mg/dL AST 35 (17-59) U/L ALT 51 (21-72) U/L Alkaline Phosphatase 127 H (38-126) U/L Albumin 2.2 L (3.5-5.0) g/dL ABG ABG pH 7.50 (7.35-7.45) H 08/21/16 13:00 ABG pCO2 30 mmHg (35-45) L 08/21/16 13:00 ABG pO2 109 mmHg (83-108) H 08/21/16 13:00 ABG O2 Saturation 99.0 % (94-97) H 08/21/16 13:00 PT/INR, D-dimer PT 13.9 sec (9.0-12.0) H 08/28/16 07:01 INR 1.4 (<1.1) 08/28/16 07:01 Microbiology 08/14/16 19:56 Sputum Gram Stain - Final 08/14/16 19:56 Sputum Sputum Culture - Final Serratia marcescens 08/09/16 22:10 Nasal Swab Nasal Screen MRSA/MSSA ([facility]) - Final 08/09/16 22:10 Urine,Voided Urine Culture - Final Lungs: Essentially clear throughout, diminished bilateral bases. Respirations are symmetrical and unlabored. O2 sat: 93% on room air. I/S: 500 mL, reviewed with the patient important of using his incentive spirometry every hour while awake. The patient did give a good return demonstration on his incentive spirometry. Heart: S1S2, regular rhythm and rate, negative for S3, gallop or murmur. Remote telemetry showing normal sinus rhythm heart rate 80. Sternum stable, chest incision clean with Dermabond dressing clean and dry. No drainage noted. Heart hugger in place, patient is demonstrating proper use of his heart hugger. Left leg incisions clean and well approximated. Serous drainage noted from his old drain site to his left lower leg. Dressing changed, Vincent wrap applied to his left leg from toes to just above the knee. Sequential compression devices in place to his bilateral lower extremities, knee -high HARRIS hose to his right lower extremity. Abdomen: Soft, Positive bowel sounds present in all 4 quadrants. Patient states he had a bowel movement yesterday 08/27/2016. CBGs: 71-137 mg/dL in the last 24 hours. U/O: Adequate, 400 mL output in the last 8 hours. 24 hr Total: Intake & Output 08/26/16 08/27/16 08/28/16 08/29/16 06:59 06:59 06:59 06:59 Intake Total 520 416 400 Output Total 1108 1858 305 Balance -979 -1036 95 Weight 115 kg 119 kg 117.5 kg Active Medications Acetaminophen (Tylenol Tab) 650 mg PO Q6HR PRN PRN Reason: Mild Pain or Fever > 38.3 C Last Admin: 08/19/16 20:16 Dose: 650 mg Albuterol/Ipratropium (Duoneb 0.5 Mg-3 Mg/3 Ml Soln) 3 ml INHALATION RT-Q2H PRN PRN Reason: Shortness Of Breath Or Wheezing Last Admin: 08/22/16 11:20 Dose: 3 ml Albuterol/Ipratropium (Duoneb 0.5 Mg-3 Mg/3 Ml Soln) 3 ml INHALATION RT-TID [facility] Last Admin: 08/27/16 19:01 Dose: Not Given Amiodarone HCl (Cordarone) 200 mg PO DAILY [facility] Last Admin: 08/27/16 08:59 Dose: 200 mg Aspirin (Aspirin) 325 mg PO DAILY [facility] Last Admin: 08/27/16 08:59 Dose: 325 mg Atorvastatin Calcium (Lipitor) 40 mg PO DAILY [facility] Last Admin: 08/27/16 09:00 Dose: 40 mg Benzocaine/Menthol (Cepacol Lozenge) 1 each MUCOUS MEM Q2H PRN PRN Reason: Sore Throat Bisacodyl (Dulcolax) 10 mg RECTAL DAILY PRN PRN Reason: Constipation Last Admin: 08/16/16 09:24 Dose: 10 mg Bismuth Subsalicylate (Bismatrol) 524 mg PO Q4HR PRN PRN Reason: Diarrhea Last Admin: 08/24/16 05:31 Dose: 524 mg Dorzolamide HCl (Trusopt) 1 drops LEFT EYE DAILY [facility] Last Admin: 08/27/16 09:00 Dose: 1 drops Enoxaparin Sodium (Lovenox) 80 mg SQ Q12HR [facility] Last Admin: 08/27/16 22:42 Dose: 80 mg Furosemide (Lasix) 20 mg IV Q12HR [facility] Last Admin: 08/27/16 22:43 Dose: Not Given Insulin Aspart (Novolog Mix 70-30 Vial) 47 unit 0.4 unit/kg (47 unit) SQ AC- BRKFST [facility] Last Admin: 08/27/16 12:30 Dose: 47 unit Insulin Human Lispro (Humalog) 12 unit 0.1 unit/kg (12 unit) SQ AC-SUPPER [facility] Last Admin: 08/27/16 17:51 Dose: 12 unit Insulin Human Lispro (Humalog) 0 unit SQ [id number] [facility] PRN Reason: Protocol Last Admin: 08/28/16 08:44 Dose: Not Given Insulin Human NPH (Humulin N) 12 unit 0.1 unit/kg (12 unit) SQ HS [facility] Last Admin: 08/27/16 22:44 Dose: 12 unit Latanoprost (Xalatan 0.005%) 1 drops BOTH EYES HS [facility] Last Admin: 08/27/16 22:44 Dose: 1 drops Magnesium Hydroxide (Milk Of Magnesia) 2,400 mg PO BID PRN PRN Reason: Constipation Last Admin: 08/16/16 09:22 Dose: 2,400 mg Metoprolol Tartrate (Lopressor) 25 mg PO BID [facility] Last Admin: 08/27/16 22:46 Dose: 25 mg Miscellaneous Information (Magnesium Per Protocol) 1 each MISCELLANE DAILY PRN ; Protocol PRN Reason: Per Protocol Miscellaneous Information (Phosphorus Per Protocol) 1 each MISCELLANE DAILY PRN ; Protocol PRN Reason: Per Protocol Miscellaneous Information (Potassium Per Protocol) 1 each MISCELLANE DAILY PRN ; Protocol PRN Reason: Per Protocol Nystatin (Mycostatin Oral Susp) 500,000 unit PO QID [facility] Last Admin: 08/27/16 22:48 Dose: Not Given Ondansetron HCl (Zofran) 4 mg IVP Q6HR PRN PRN Reason: Nausea And Vomiting Pantoprazole Sodium (Protonix) 40 mg PO DAILY [facility] Last Admin: 08/27/16 09:01 Dose: 40 mg Potassium Chloride (K-Dur 20) 20 meq PO Q1HR [facility] Stop: 08/28/16 09:01 Prednisolone Acetate (Pred Forte 1%) 1 drops LEFT EYE MOTH [facility] Last Admin: 08/26/16 18:17 Dose: 1 drops Sodium Chloride (Saline Flush) 10 ml IV Q12HR [facility] Last Admin: 08/27/16 22:46 Dose: 10 ml Plan: 1. Continue aspirin, Lopressor, statin, decrease Lasix to 40 mg IV daily. 2. Continue amiodarone for atrial fibrillation prophylaxis 3. Continue Lovenox secondary to history of DVT. Convert to Coumadin for anticoagulation. INR 1.4 this morning, will give 10 mg of Coumadin this evening. 4. Encourage incentive spirometry use every hour while awake. 5. Increase activity as tolerated. Ambulate as able. Physical therapy to follow. 6. Daily labs. 7. GI/DVT prophylaxis. 8. Change dressing to his left leg incisions as needed. 9. May discharge to subacute rehab when bed available. [email or web address] has sent information to [facility]. <Ramin Traore - Last Filed: 08/28/16 10:45> Progress Note - Text The patient was seen and examined. I agree with the above assessment and plan. We will change his Lasix to daily dosing as he has been refusing the evening dose. We will increase his Coumadin back to his home dose of 10 mg daily. He remains on Lovenox. His most recent INR was 1.4. Physical therapy continues to work with him. We're awaiting placement at subacute rehab.
[2016-08-28] MEDS: METOPROLOL TARTRATE 25 MG TAB PO SCH ×2 (12:02→22:20)
[2016-08-28 12:03] LABS: Glucose,Whole Blood 97 mg/dL (75-99)
--- NOTE | 2016-08-28 12:07 | P.PN ---
Subjective Principal diagnosis: Status post coronary artery bypass grafting surgery This is an 80-year-old gentleman who is status post coronary artery bypass grafting surgery. Patient has had a prolonged postoperative course. At the time of my examination, patient is doing quite well. He is using his incentive spirometry and reaching 750 ML's. Blood pressure is stable. Patient did have a brief run of paroxysmal atrial fibrillation with rapid ventricular response lasting about 2 minutes through the night. He also has some sinus bradycardia while sleeping that is asymptomatic. He is on amiodarone and metoprolol as well as Lovenox and Coumadin. INR is 1.4. Objective - Vital Signs Vital signs: Vital Signs Temp 97.1 F L 08/28/16 08:00 Pulse 66 08/28/16 08:00 Resp 18 08/28/16 08:00 BP 100/60 08/28/16 08:00 Pulse Ox 96 08/28/16 08:00 Intake & Output 08/27/16 08/28/16 08/28/16 18:59 06:59 18:59 Intake Total 400 120 Output Total 302 3 50 Balance 98 -3 70 Weight 117.5 kg Intake: Oral 400 120 Output: Urine 300 50 Stool 2 3 Other: Voiding Method Urinal Urinal Urinal # Voids 1 2 # Bowel Movements 1 ABP, PAP, CO, CI - Last Documented Arterial Blood Pressure 144/51 Pulmonary Artery Pressure 41/23 Cardiac Output 7.4 Cardiac Index 3.3 - Exam PHYSICAL EXAMINATION: HEENT: Head is atraumatic, normocephalic. Pupils equal, round. Neck is supple. There is no elevated jugular venous pressure. HEART EXAMINATION: Heart sounds regular, S1 and S2 normal. No murmur or gallop heard. CHEST EXAMINATION: Lungs are clear with diminished air entry to bilateral lower lobes. No chest wall tenderness is noted on palpation or with deep breathing. Sternal incision with dressing dry and intact. ABDOMEN: Soft, nontender. Bowel sounds are heard. No organomegaly noted. EXTREMITIES: 2+ peripheral pulses with evidence of 2+ peripheral edema and no calf tenderness noted. Right radial site clean and dry, good distal pulse. NEUROLOGIC patient is awake, alert and oriented x3. . - Labs CBC & Chem 7: 08/28/16 07:01 08/28/16 07:01 Labs: Abnormal Lab Results - Last 24 Hours (Table) 06/05/1408/28/16 08/28/16 Range/Units 11:47 02:02 07:01 RBC 2.96 L (4.30-5.90) m/uL Hgb 9.4 L (13.0-17.5) gm/dL Hct 29.5 L (39.0-53.0) % Plt Count 122 L (150-450) k/uL PT (9.0-12.0) sec Chloride (98-107) mmol/L BUN (9-20) mg/dL POC Glucose (mg/dL) 137 H 71 L (75-99) mg/dL Calcium (8.4-10.2) mg/dL Alkaline Phosphatase (38-126) U/L Total Protein (6.3-8.2) g/dL Albumin (3.5-5.0) g/dL 08/28/16 08/28/16 Range/Units 07:01 07:01 RBC (4.30-5.90) m/uL Hgb (13.0-17.5) gm/dL Hct (39.0-53.0) % Plt Count (150-450) k/uL PT 13.9 H (9.0-12.0) sec Chloride 112 H (98-107) mmol/L BUN 26 H (9-20) mg/dL POC Glucose (mg/dL) (75-99) mg/dL Calcium 8.0 L (8.4-10.2) mg/dL Alkaline Phosphatase 127 H (38-126) U/L Total Protein 5.1 L (6.3-8.2) g/dL Albumin 2.2 L (3.5-5.0) g/dL Assessment and Plan Plan: #1 triple-vessel coronary artery disease, status post coronary artery bypass grafting #2 diabetes #3 hyperlipidemia #4 paroxysmal atrial fibrillation #5 history of DVT and PE #6 thrombocytopenia From cardiology's perspective, medications were reviewed and we will continue the same. Patient appears to be progressing well. From our stand point, once cleared by surgery, patient may be discharged. We'll continue follow the patient and provide further recommendations accordingly. The above dictated assessment and findings were discussed with signing physician. The impression and plan of care have been directed as dictated. Rosemarie Weir, Nurse Practitioner, acting as scribe for signing physician.
--- NOTE | 2016-08-28 14:51 | PN ---
DATE OF SERVICE: 08/28/2016 ATTENDING NOTE: Patient was seen and examined by me. I reviewed the note of my nurse practitioner, Ms. Kapadia. Discussed initial findings below. Patient is status post CABG, sitting up in a chair. Did tolerate his breakfast. Breathing is better. On exam, lungs decreased breath sounds. CARDIOVASCULAR: First and second sounds normal. Some edema is present. ASSESSMENT: 1. Status post coronary artery bypass. 2. Medical debility. PLAN: Continue current medication and treatment plan. INR is 1.4.
--- NOTE | 2016-08-28 16:36 | PN ---
80-year-old gentleman who is postop day #13 status post multivessel bypass grafting. Had a very angelika postoperative course complicated by hypoxemia and difficulty weaning from mechanical ventilation secondary to airspace disease and possible pneumonia. 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 His major complaint day by day is profound weakness and difficulty. He feels like he does not have any strength at all. The patient is not having any respiratory difficulty. No chest pain. No fever, no chills. No nausea, vomiting, or diarrhea. He is hoping to get discharged soon. They are looking at some sort of rehab facility for him. Current vital signs include temperature 97.1. Heart rate 66, respiratory rate 18, blood pressure 127/58, room air saturation 96%. Appears in no acute distress. HEENT examination is grossly unremarkable. Mucous membranes are moist. No oral lesions. Neck is supple. Full range of motion. No adenopathy or thyromegaly. Cardiovascular examination reveals regular rhythm and rate. Heart sounds are distant. A few premature beats. No distinct murmur. Lungs reveal mostly clear breath sounds. No wheezes or rhonchi. No crackles. Really does not take deep breaths. ABDOMEN: Soft. Bowel sounds are heard. EXTREMITIES: Intact. No cyanosis, clubbing, or edema. Skin is without rash. NEUROLOGICAL: Examination is nonfocal. Lab data includes a white count 4.6, hemoglobin 9.4, hematocrit 29.5, platelet count 22,000. PT, INR 13.9 and 1.4, sodium and potassium normal. Chloride is 112, CO2 of 24, BUN and creatinine were 26 and 0.98. No recent chest x-ray to report. Microbiologically, the sputum did show evidence of Serratia Marcescens. Medications are reviewed. ASSESSMENT: 1. Postoperative day #15. Status post multivessel bypass grafting. 2. Postoperative hypoxemia with difficulty weaning from mechanical ventilation, secondary to Serratia Marcescens pneumonia involving primarily the right lower lobe. 3. Diabetes mellitus. 4. Status post thoracotomy respiratory failure. 5. History of deep venous thrombosis and pulmonary embolism. 6. Thrombocytopenia. 7. Acute kidney injury. 8. Postoperative respiratory failure. 9. 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 PLAN: The patient is doing reasonably well but profoundly weak. We will check a cortisol level. No additional recommendations are made. Medications are reviewed. We will continue to follow. Prognosis is guarded. The patient may be discharged to a nursing facility sometime early next week.
--- NOTE | 2016-08-28 16:43 | PN ---
DATE OF SERVICE: 08/28/2016 PRESENTING COMPLAINT: Chest pain. INTERVAL HISTORY: This is a patient who is status post CABG progressing slowly. Patient is tolerating his diet, working with physical therapy. Patient sitting in the chair, giving himself a shave. Looks bright and alert. Mild shortness of breath noted. Review of systems done for constitutional, cardiovascular, GI, pulmonary, with relevant findings as above. CURRENT MEDICATIONS: 1. Amiodarone 200 mg p.o. daily. 2. Aspirin 325 mg p.o. daily. 3. Lipitor 40 mg p.o. daily. 4. Lovenox 80 mg subcutaneously q.12 hours. 5. Lasix 20 mg IV push q.12h. 6. Metoprolol 25 mg p.o. b.i.d. PHYSICAL EXAMINATION: VITAL SIGNS: Temperature 97.1, pulse 66, respiratory rate 18, blood pressure 100/60, oxygen saturation 96% on room air. GENERAL APPEARANCE: Patient sitting up in a chair. Mild shortness of breath noted. No distress. EYES: Pupils equal. Conjunctivae normal. NECK: JVD unable to assess. Mass not palpable. RESPIRATORY: Effort increased. LUNGS: Diminished breath sounds bilaterally. CARDIOVASCULAR: ( ) sounds noted. Some edema present. ABDOMEN: Soft, nontender. Liver and spleen not palpable. PSYCHIATRY: Alert and oriented x3. Mood and affect normal. INVESTIGATIONS: Hemoglobin 9.4, INR 1.4, BUN 26, creatinine 0.98. Accu-Cheks noted. ASSESSMENT: 1. Status post coronary artery bypass grafting slowly improving. 2. Coronary artery disease. 3. Diabetes mellitus, type II, on oral hypoglycemics. 4. Chronic deep vein thrombosis, pulmonary embolism on Coumadin. 5. Primary osteoarthritis, multiple joints bilaterally. 6. Benign prostatic hypertrophy. 7. Thrombocytopenia likely, idiopathic thrombocytopenic purpura. 8. Pneumonia secondary to Serratia Marcescens, clinically improving. 9. Medical debility. 10. Acute postoperative blood loss anemia as expected from surgery. PLAN: We will continue current medication and treatment plan. Patient likely to be discharged to [facility] on Tuesday. Plan of care discussed with the patient. Patient was seen and examined by nurse practitioner Fiorella Kapadia and all elements of the case discussed with attending, Dr. Long. I performed a history and physical examination of this patient and discussed the same with the dictator. I agree with the dictator's note. Any additional findings/opinions, etc. will be noted.
[2016-08-28 17:09] LABS: Glucose,Whole Blood 108 mg/dL (75-99)
[2016-08-28] MEDS ORDERED: WARFARIN 10 MG TAB PO ONE (18:00)
[2016-08-28 21:08] LABS: Glucose,Whole Blood 147 mg/dL (75-99)
[2016-08-28] MEDS: LATANOPROST 0.005% OPHTH DROPS 2.5 ML BTL BOTH EYES SCH (22:20)
[2016-08-28] MEDS: INSULIN NPH 300 UNIT/3 ML VIAL SQ SCH (22:21)
[2016-08-29 05:48] LABS: Glucose,Whole Blood 118 mg/dL (75-99)
[2016-08-29 07:00] LABS: Ionized Calcium 4.9 mg/dL (4.5-5.3)
[2016-08-29 07:10] LABS: Anion Gap 7 mmol/L; Blood Urea Nitrogen 26 mg/dL (9-20); Calcium 8.1 mg/dL (8.4-10.2); Carbon Dioxide 25 mmol/L (22-30); Chloride 112 mmol/L (98-107); Glucose 118 mg/dL (74-99); Magnesium 2.2 mg/dL (1.6-2.3); Non-African American GFR(MDRD) >60 (>60 ml/min/1.73 sqM); Sodium 144 mmol/L (137-145)
[2016-08-29 07:23] LABS: INR 1.5 (<1.1); Prothrombin Time 14.4 sec (9.0-12.0)
[2016-08-29 07:54] LABS: Basophils % (A) 0 %; CH 32.2; CHCM 32.8; Eosinophils # (A) 0.1 k/uL (0-0.7); Eosinophils % (A) 4 %; HCT 29.5 % (39.0-53.0); HGB 9.8 gm/dL (13.0-17.5); Hypochromasia Slight; Luc # (Auto) 0.08; Luc % (Auto) 2; Lymphocytes # (A) 1.2 k/uL (1.0-4.8); Lymphocytes % (A) 30 %; MCH 32.7 pg (25.0-35.0); MCHC 33.1 g/dL (31.0-37.0); MCV 98.7 fL (80.0-100.0); Macrocytosis Slight; Mean Platelet Volume 9.2; Monocytes # (A) 0.2 k/uL (0-1.0); Monocytes % (A) 5 %; Neutrophils # (A) 2.3 k/uL (1.3-7.7); Neutrophils % (A) 58 %; Poikilocytosis Slight; RBC 2.99 m/uL (4.30-5.90); RDW 15.1 % (11.5-15.5); WBC 3.9 k/uL (3.8-10.6); WBC (Perox) 3.96
[2016-08-29] MEDS: IPRATROPIUM-ALBUTEROL 3 ML NEB INHALATION SCH ×2 (09:39→12:00)
[2016-08-29] MEDS: INSULIN LISPRO (humaLOG) 300 UNIT/3 ML VIAL SQ SCH ×6 (09:48→23:11)
[2016-08-29] MEDS: ATORVASTATIN 40 MG TAB PO SCH (10:05)
[2016-08-29] MEDS: METOPROLOL TARTRATE 25 MG TAB PO SCH ×2 (10:05→23:11)
[2016-08-29] MEDS: ASPIRIN 325 MG TAB PO SCH (10:05)
[2016-08-29] MEDS: PANTOPRAZOLE 40 MG TABLET PO SCH (10:06)
[2016-08-29] MEDS: DORZOLAMIDE HCL 2% DROPS 10 ML BTL LEFT EYE SCH (10:06)
[2016-08-29] MEDS: FUROSEMIDE 10 MG/ML 4 ML VIAL IV SCH (10:06)
[2016-08-29] MEDS: AMIODARONE 200 MG TAB PO SCH (10:06)
[2016-08-29] MEDS: INSULN ASP PRT/INSULIN ASPART 100 UNIT/ML 10 ML VIAL SQ SCH (10:07)
[2016-08-29] MEDS: ENOXAPARIN 80 MG/0.8 ML SYRINGE SQ SCH ×2 (10:07→23:10)
[2016-08-29] MEDS: NYSTATIN 100,000 UNIT/ML SUSP 500,000 UNIT/5 ML CUP PO SCH ×4 (10:08→23:12)
[2016-08-29 11:59] LABS: Glucose,Whole Blood 168 mg/dL (75-99)
--- NOTE | 2016-08-29 12:03 | PN ---
DATE OF SERVICE: 08/29/2016 PRESENTING COMPLAINT: Chest pain. INTERVAL HISTORY: This is a patient who is status post CABG, progressing slowly. Patient is tolerating his diet, working with physical therapy. Patient today is sitting in the chair, just finishing breakfast. Patient states he had a rough night secondary to a new roommate. Patient is tolerating his diet. He is still only able to toe-touch. Patient complains that he does not have the "strength" to go very far. Review of systems done for constitutional, cardiovascular, GI, pulmonary; with relevant findings as above. CURRENT MEDICATIONS: 1. Amiodarone 200 mg p.o. daily. 2. Aspirin 325 mg p.o. daily. 3. Lipitor 40 mg p.o. daily. 4. Lovenox 80 mg subcutaneously every 12 hours. 5. Lasix 20 mg IV push every 12 hours. 6. Metoprolol 25 mg p.o. b.i.d. PHYSICAL EXAMINATION: VITAL SIGNS: Temperature 97.3, pulse 68, respirations 18, blood pressure 120/60, oxygen saturation 94% on room air. GENERAL APPEARANCE: Patient is sitting up in the chair, just completed eating his breakfast, looks frustrated. No acute signs or symptoms of any distress. EYES: Pupils equal. Conjunctivae normal. NECK: JVD unable to assess. Mass not palpable. RESPIRATORY: Effort increased. LUNGS: Diminished breath sounds bilaterally. CARDIOVASCULAR: First and second sounds noted. Generalized edema present. ABDOMEN: Soft, nontender. Liver and spleen not palpable. PSYCHIATRY: Alert and oriented x3. Mood and affect are normal. INVESTIGATIONS: Hemoglobin 9.8, platelet count 124. INR 1.5. Accu-Cheks noted. ASSESSMENT: 1. Status post coronary artery bypass grafting, slowly improving. 2. Medical debility secondary to #1. 3. Coronary artery disease. 4. Diabetes mellitus, type 2, on oral hypoglycemics. 5. Chronic deep vein thrombosis, pulmonary embolism on Coumadin. 6. Primary osteoarthritis, multiple joints bilaterally. 7. Benign prostatic hypertrophy. 8. 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 9. Pneumonia secondary to Serratia marcescens, clinically improving. 10. Acute postoperative blood loss anemia as expected from surgery. Continue current medication and treatment plan. Tentative discharge to [facility] on Tuesday. Plan of care discussed with the patient. Patient was seen and examined by nurse practitioner, Fiorella Huitron, and all elements of the case discussed with attending, Dr. Long.
--- NOTE | 2016-08-29 12:48 | PN ---
80-year-old gentleman with history of coronary artery disease, status post CABG, diabetes, dyslipidemia, paroxysmal atrial fibrillation, he is gradually increasing his activities. Currently plans are underway to either send him to rehab or discharge him home. He is doing well. Remains in sinus rhythm. Heart rate is well controlled. Currently on Coumadin and amiodarone because of episodes of paroxysmal atrial fibrillation. Coumadin is being dosed by CT surgeons. On exam, comfortable at rest. Vital signs are stable. Chest exam reveals diminished air entry at the bases. Heart exam reveals first and second heart sounds. No gallop. Exam of extremities reveals trace edema. Peripheral pulses are felt. ASSESSMENT: 1. Coronary artery disease status post coronary artery bypass graft. 2. Paroxysmal atrial fibrillation. PLAN: Patient will continue his current medications. I encouraged him to increase his activity.
--- NOTE | 2016-08-29 12:54 | P.PN ---
Progress Note - Text CV Surgery Nursing Principal diagnosis: Multivessel coronary artery disease POD #16 coronary artery bypass grafting 2 vessels (left internal mammary artery to left anterior descending artery, saphenous vein graft to obtuse marginal artery). Endoscopic vein harvest left greater saphenous vein. Epi- aortic ultrasound. Transesophageal echocardiogram. Postoperative acute hypoxic respiratory failure requiring mechanical ventilation , failure to wean secondary to Serratia marcescens pneumonia, an unexpected postoperative complication, likely pneumonia acquired prior to surgery. Postoperative paroxysmal atrial fibrillation, expected outcome, treated with amiodarone. History of DVT/PE, on chronic Coumadin. History of hyperlipidemia. Uncontrolled type 2 diabetes mellitus, hemoglobin A1c 7.0%. Patient awake and alert, no distress noted, no specific complaints. He is sitting up to the bedside chair this time. Vital Signs: Afebrile Vital Signs - 24 hr 08/28/16 08/28/16 08/28/16 12:00 15:42 20:00 Temperature 98.6 F 98.5 F Pulse Rate [ 79 74 78 Pulse Oximetery ] Respiratory 18 18 18 Rate Blood Pressure 125/60 [Left Arm Supine] Blood Pressure 109/56 145/69 [Right Arm Supine] O2 Sat by Pulse 95 97 93 L Oximetry 08/29/16 08/29/16 00:00 04:00 Temperature 97.3 F L 97.3 F L Pulse Rate [ 94 68 Pulse Oximetery ] Respiratory 18 18 Rate Blood Pressure [Left Arm Supine] Blood Pressure 119/64 120/60 [Right Arm Supine] O2 Sat by Pulse 91 L 94 L Oximetry Labs: Short CBC 08/29/16 Range/Units 06:15 WBC 3.9 (3.8-10.6) k/uL Hgb 9.8 L (13.0-17.5) gm/dL Hct 29.5 L (39.0-53.0) % Plt Count 124 L (150-450) k/uL Neutrophils # 2.3 (1.3-7.7) k/uL BMP 08/29/16 06:15 Sodium 144 Potassium 4.0 Chloride 112 H Carbon Dioxide 25 BUN 26 H Creatinine 1.00 Glucose 118 H Calcium 8.1 L ABG ABG pH 7.50 (7.35-7.45) H 08/21/16 13:00 ABG pCO2 30 mmHg (35-45) L 08/21/16 13:00 ABG pO2 109 mmHg (83-108) H 08/21/16 13:00 ABG O2 Saturation 99.0 % (94-97) H 08/21/16 13:00 PT/INR, D-dimer PT 14.4 sec (9.0-12.0) H 08/29/16 06:15 INR 1.5 (<1.1) 08/29/16 06:15 Microbiology 08/14/16 19:56 Sputum Gram Stain - Final 08/14/16 19:56 Sputum Sputum Culture - Final Serratia marcescens 08/09/16 22:10 Nasal Swab Nasal Screen MRSA/MSSA ([facility]) - Final 08/09/16 22:10 Urine,Voided Urine Culture - Final Lungs: Essentially clear to his upper lobes, diminished to his left lower lobe, scattered crackles to his right lower lobe. Respirations are are symmetrical and unlabored. O2 sat: 94% on room air. I/S: 750 mL, reviewed with the patient important of using his incentive spirometry every hour while awake. Patient did demonstrate proper use of his incentive spirometry. Heart: S1S2, regular rhythm and rate, negative for S3, gallop or murmur. Remote telemetry showing normal sinus rhythm with occasional P VC heart rate 70. Sternum stable, chest incision clean with Dermabond dressing clean and dry. Heart hugger in place, patient is demonstrating proper use of his heart hugger. Left leg incisions clean dry and well approximated. Scant serous drainage noted from his old KARL drain site to his left lower leg. Vincent wrap in place to his left leg. Knee-high HARRIS hose to his right leg, sequential compression devices in place to his bilateral lower extremities. Abdomen: Soft, nontender. Positive bowel sounds present in all 4 quadrants. Positive bowel movement this a.m. CBGs: 82-147 mg/dL in the last 24 hours. U/O: Adequate. 24 hr Total: Intake & Output 08/27/16 08/28/16 08/29/16 08/30/16 06:59 06:59 06:59 06:59 Intake Total 416 400 900 Output Total 1858 305 256 Balance -1442 95 644 Weight 119 kg 117.5 kg 118 kg Active Medications Acetaminophen (Tylenol Tab) 650 mg PO Q6HR PRN PRN Reason: Mild Pain or Fever > 38.3 C Last Admin: 08/19/16 20:16 Dose: 650 mg Albuterol/Ipratropium (Duoneb 0.5 Mg-3 Mg/3 Ml Soln) 3 ml INHALATION RT-Q2H PRN PRN Reason: Shortness Of Breath Or Wheezing Last Admin: 08/22/16 11:20 Dose: 3 ml Albuterol/Ipratropium (Duoneb 0.5 Mg-3 Mg/3 Ml Soln) 3 ml INHALATION RT-TID [facility] Last Admin: 08/29/16 09:39 Dose: Not Given Amiodarone HCl (Cordarone) 200 mg PO DAILY [facility] Last Admin: 08/29/16 10:06 Dose: 200 mg Aspirin (Aspirin) 325 mg PO DAILY [facility] Last Admin: 08/29/16 10:05 Dose: 325 mg Atorvastatin Calcium (Lipitor) 40 mg PO DAILY [facility] Last Admin: 08/29/16 10:05 Dose: 40 mg Benzocaine/Menthol (Cepacol Lozenge) 1 each MUCOUS MEM Q2H PRN PRN Reason: Sore Throat Bisacodyl (Dulcolax) 10 mg RECTAL DAILY PRN PRN Reason: Constipation Last Admin: 08/16/16 09:24 Dose: 10 mg Bismuth Subsalicylate (Bismatrol) 524 mg PO Q4HR PRN PRN Reason: Diarrhea Last Admin: 08/24/16 05:31 Dose: 524 mg Dorzolamide HCl (Trusopt) 1 drops LEFT EYE DAILY [facility] Last Admin: 08/29/16 10:06 Dose: 1 drops Enoxaparin Sodium (Lovenox) 80 mg SQ Q12HR [facility] Last Admin: 08/29/16 10:07 Dose: 80 mg Furosemide (Lasix) 40 mg IV DAILY [facility] Last Admin: 08/29/16 10:06 Dose: 40 mg Insulin Aspart (Novolog Mix 70-30 Vial) 47 unit 0.4 unit/kg (47 unit) SQ AC- BRKFST [facility] Last Admin: 08/29/16 10:07 Dose: 47 unit Insulin Human Lispro (Humalog) 12 unit 0.1 unit/kg (12 unit) SQ AC-SUPPER [facility] Last Admin: 08/28/16 17:32 Dose: 12 unit Insulin Human Lispro (Humalog) 0 unit SQ [id number] [facility] PRN Reason: Protocol Last Admin: 08/29/16 09:50 Dose: Not Given Insulin Human NPH (Humulin N) 12 unit 0.1 unit/kg (12 unit) SQ HS [facility] Last Admin: 08/28/16 22:21 Dose: 12 unit Latanoprost (Xalatan 0.005%) 1 drops BOTH EYES HS [facility] Last Admin: 08/28/16 22:20 Dose: 1 drops Magnesium Hydroxide (Milk Of Magnesia) 2,400 mg PO BID PRN PRN Reason: Constipation Last Admin: 08/16/16 09:22 Dose: 2,400 mg Metoprolol Tartrate (Lopressor) 25 mg PO BID [facility] Last Admin: 08/29/16 10:05 Dose: 25 mg Miscellaneous Information (Magnesium Per Protocol) 1 each MISCELLANE DAILY PRN ; Protocol PRN Reason: Per Protocol Miscellaneous Information (Phosphorus Per Protocol) 1 each MISCELLANE DAILY PRN ; Protocol PRN Reason: Per Protocol Miscellaneous Information (Potassium Per Protocol) 1 each MISCELLANE DAILY PRN ; Protocol PRN Reason: Per Protocol Nystatin (Mycostatin Oral Susp) 500,000 unit PO QID [facility] Last Admin: 08/29/16 10:08 Dose: Not Given Ondansetron HCl (Zofran) 4 mg IVP Q6HR PRN PRN Reason: Nausea And Vomiting Pantoprazole Sodium (Protonix) 40 mg PO DAILY [facility] Last Admin: 08/29/16 10:06 Dose: 40 mg Prednisolone Acetate (Pred Forte 1%) 1 drops LEFT EYE MOTH [facility] Last Admin: 08/26/16 18:17 Dose: 1 drops Sodium Chloride (Saline Flush) 10 ml IV Q12HR [facility] Last Admin: 08/29/16 10:08 Dose: 10 ml Plan: 1. Continue aspirin, Lopressor, statin, continue Lasix to 40 mg IV daily. 2. Continue amiodarone for atrial fibrillation prophylaxis 3. Continue Lovenox secondary to history of DVT. Convert to Coumadin for anticoagulation. INR 1.5 this morning, will give 10 mg of Coumadin this evening. 4. Encourage incentive spirometry use every hour while awake. 5. Increase activity as tolerated. Ambulate as able. Physical therapy to follow. 6. Daily labs. 7. GI/DVT prophylaxis. 8. Change dressing to his left leg incisions as needed. 9. May discharge to subacute rehab when bed available. Social work has sent information to [facility].
--- NOTE | 2016-08-29 14:22 | PN ---
80-year-old gentleman who is postop day #14. Status post multivessel bypass grafting. He had angelika postoperative course complicated by hypoxemia and failure to wean from mechanical ventilation. He had diffuse air space disease and possible pneumonia. He also suffers from diabetes mellitus, post thoracotomy, respiratory failure, DVT, pulmonary embolism, thrombocytopenia, acute kidney injury and some critical illness polyneuropathy/myopathy. He does have significant weakness. His daily complaint includes primarily weakness. Denies any chest pain, chest discomfort. No cough. No wheezing. No phlegm production. No nausea, vomiting, or diarrhea. Discharge is planned for early this week. They were looking for some sort of rehab facility. CURRENT VITAL SIGNS: Temperature 97.3, heart rate 68, respiratory rate 18, blood pressure 120/60, mean 80 and room air saturation 94%. Appears in no acute distress. HEENT examination is grossly unremarkable. Mucous membranes are moist. No oral lesions. Neck is supple. Full range of motion. No adenopathy or thyromegaly. Neck veins are flat. Cardiovascular examination reveals regular rhythm and rate. Heart sounds are distant. S1, S2 normal. There is no murmur. Lungs reveal mostly clear breath sounds. A few scattered mild rhonchi. No wheezes or crackles. ABDOMEN: Soft. Bowel sounds are heard. EXTREMITIES: Intact. No cyanosis, clubbing or significant edema. Skin without rash. NEUROLOGICAL: Nonfocal. Labs are reviewed. White count 3.9, hemoglobin 9.8, hematocrit 29.5, platelet count 124,000. PT 14.4, INR 1.5, sodium and potassium normal. Chloride is 112, CO2 of 25, BUN and creatinine 26 and 1.0. Microbiology is showing evidence of Serratia Marcescens in the sputum from August 14. Medications are reviewed. ASSESSMENT: 1. Postoperative day #15, status post multivessel bypass grafting. 2. Postoperative hypoxemia with difficulty weaning from mechanical ventilation, secondary to Serratia Marcescens pneumonia involving primarily the right lower lobe. 3. Diabetes mellitus. 4. Status post thoracotomy respiratory failure. 5. History of deep venous thrombosis/pulmonary embolism. 6. Thrombocytopenia. 7. Acute kidney injury. 8. Postoperative respiratory failure. 9. Critical illness polyneuropathy/myopathy. PLAN: The patient is doing reasonably well. We will continue to follow. Laboratory data looks good. No additional recommendations are made. The patient is again waiting for possible discharge to rehab facility. Will continue to see this patient until discharge.
[2016-08-29 17:14] LABS: Glucose,Whole Blood 69 mg/dL (75-99)
[2016-08-29 17:14] LABS: Glucose,Whole Blood 57 mg/dL (75-99)
[2016-08-29 17:44] LABS: Glucose,Whole Blood 67 mg/dL (75-99)
[2016-08-29] MEDS ORDERED: WARFARIN 10 MG TAB PO ONE (18:00)
[2016-08-29 18:17] LABS: Glucose,Whole Blood 82 mg/dL (75-99)
[2016-08-29 20:57] LABS: Glucose,Whole Blood 118 mg/dL (75-99)
[2016-08-29] MEDS: LATANOPROST 0.005% OPHTH DROPS 2.5 ML BTL BOTH EYES SCH (23:10)
[2016-08-30 02:44] LABS: Glucose,Whole Blood 122 mg/dL (75-99)
[2016-08-30 05:55] LABS: Glucose,Whole Blood 127 mg/dL (75-99)
[2016-08-30] MEDS: INSULIN LISPRO (humaLOG) 300 UNIT/3 ML VIAL SQ SCH ×5 (06:38→21:22)
[2016-08-30] MEDS: GLIMEPIRIDE 4 MG TAB PO SCH ×2 (06:41→17:33)
[2016-08-30] MEDS: metFORMIN 500 MG TAB PO SCH ×2 (06:41→17:33)
[2016-08-30 06:46] LABS: Basophils % (A) 1 %; CHCM 31.6; Eosinophils # (A) 0.1 k/uL (0-0.7); Eosinophils % (A) 4 %; HCT 30.2 % (39.0-53.0); HDW 3.36; HGB 9.4 gm/dL (13.0-17.5); Hypochromasia Moderate; Luc # (Auto) 0.07; Luc % (Auto) 2; Lymphocytes # (A) 1.1 k/uL (1.0-4.8); Lymphocytes % (A) 34 %; MCH 31.6 pg (25.0-35.0); MCHC 31.1 g/dL (31.0-37.0); MCV 101.8 fL (80.0-100.0); Macrocytosis Slight; Mean Platelet Volume 9.2; Monocytes # (A) 0.2 k/uL (0-1.0); Monocytes % (A) 5 %; Neutrophils # (A) 1.6 k/uL (1.3-7.7); Neutrophils % (A) 54 %; RBC 2.96 m/uL (4.30-5.90); RDW 15.1 % (11.5-15.5); WBC 3.1 k/uL (3.8-10.6); WBC (Perox) 3.11
[2016-08-30 06:48] LABS: INR 1.5 (<1.1); Prothrombin Time 14.9 sec (9.0-12.0)
[2016-08-30 06:54] LABS: Anion Gap 5 mmol/L; Blood Urea Nitrogen 25 mg/dL (9-20); Carbon Dioxide 27 mmol/L (22-30); Chloride 111 mmol/L (98-107); Glucose 128 mg/dL (74-99); Non-African American GFR(MDRD) >60 (>60 ml/min/1.73 sqM); Potassium 4.1 mmol/L (3.5-5.1); Sodium 143 mmol/L (137-145)
--- NOTE | 2016-08-30 07:42 | PN ---
DATE OF SERVICE: 08/29/2016 Attending note: This patient was seen and examined by me earlier today. I reviewed the note of my nurse practitioner, Ms. Kapadia. Discussed additional findings below. The patient is status post CABG, did tolerate some diet. Sitting up in a chair. Still some baseline short of breath. MEDICATIONS: Include IV Lasix. On examination, blood pressure 124/60, pulse ox 94% on room air. RESPIRATORY: Effort increased. LUNGS: Decreased breath sounds. CARDIOVASCULAR: First and second sounds normal. Edema present. PSYCH: Awake. ASSESSMENT: 1. Status post coronary artery bypass grafting. 2. Coronary artery disease. 3. Pneumonia secondary to Serratia Marcescens much improved. 4. Paroxysmal atrial fibrillation, now on sinus rhythm, has been on Coumadin and amiodarone. The patient's sugars are tending to run a bit on the lower side and have to keep a close eye on the same.
[2016-08-30] MEDS: DORZOLAMIDE HCL 2% DROPS 10 ML BTL LEFT EYE SCH (08:44)
[2016-08-30] MEDS: FUROSEMIDE 10 MG/ML 4 ML VIAL IV SCH ×2 (08:44→08:55)
[2016-08-30] MEDS: ENOXAPARIN 80 MG/0.8 ML SYRINGE SQ SCH ×2 (08:44→21:24)
[2016-08-30] MEDS: ATORVASTATIN 40 MG TAB PO SCH (08:45)
[2016-08-30] MEDS: METOPROLOL TARTRATE 25 MG TAB PO SCH ×2 (08:45→21:23)
[2016-08-30] MEDS: ASPIRIN 325 MG TAB PO SCH (08:45)
[2016-08-30] MEDS: AMIODARONE 200 MG TAB PO SCH (08:46)
[2016-08-30] MEDS: PANTOPRAZOLE 40 MG TABLET PO SCH (08:46)
[2016-08-30] MEDS: NYSTATIN 100,000 UNIT/ML SUSP 500,000 UNIT/5 ML CUP PO SCH ×5 (08:46→21:23)
[2016-08-30 11:12] VITALS: BMI 36.6
--- NOTE | 2016-08-30 11:28 | P.PN ---
Subjective Principal diagnosis: S/P coronary artery bypass grafting surgery This is an 80-year-old gentleman who is status post coronary artery bypass grafting surgery.patient has had a prolonged course postoperatively, today is being followed on the telemetry unit. He has no complaints at the time of my examination, sitting up in the chair at bedside. Reaching 750 on his incentive spirometry. Still states that he feels somewhat uncoordinated. Breathing is stable. Blood pressure 128/60 with a heart rate in the 60s. Hemoglobin 9.4, platelet count 115, INR 1.5. Continues to be on IV Lasix. Creatinine 1.07. Objective - Vital Signs Vital signs: Vital Signs Temp 97.1 F L 08/30/16 08:00 Pulse 82 08/30/16 08:00 Resp 18 08/30/16 08:00 BP 128/59 08/30/16 08:00 Pulse Ox 96 08/30/16 08:00 Intake & Output 08/29/16 08/30/16 08/30/16 18:59 06:59 18:59 Intake Total 100 Output Total 775 954 1 Balance -775 -854 -1 Weight 116 kg 116 kg Intake: Oral 100 Output: Urine 775 950 Stool 4 1 Other: Voiding Method Urinal Urinal Urinal # Voids 1 1 ABP, PAP, CO, CI - Last Documented Arterial Blood Pressure 144/51 Pulmonary Artery Pressure 41/23 Cardiac Output 7.4 Cardiac Index 3.3 - Exam PHYSICAL EXAMINATION: HEENT: Head is atraumatic, normocephalic. Pupils equal, round. Neck is supple. There is no elevated jugular venous pressure. HEART EXAMINATION: Heart S1, S2 normal. No murmur or gallop heard. CHEST EXAMINATION: Lungs are clear with diminished air entry to bilateral bases ABDOMEN: Soft, nontender. Bowel sounds are heard. No organomegaly noted. Right radial site clean and dry, good distal pulse. EXTREMITIES: 2+ peripheral pulses with 2+ evidence of peripheral edema and no calf tenderness noted. NEUROLOGIC patient is awake, alert and oriented -3. . - Labs CBC & Chem 7: 08/30/16 06:14 08/30/16 06:14 Labs: Abnormal Lab Results - Last 24 Hours (Table) 08/29/16 08/29/16 08/29/16 Range/Units 11:46 16:51 17:12 WBC (3.8-10.6) k/uL RBC (4.30-5.90) m/uL Hgb (13.0-17.5) gm/dL Hct (39.0-53.0) % MCV (80.0-100.0) fL Plt Count (150-450) k/uL PT (9.0-12.0) sec Chloride (98-107) mmol/L BUN (9-20) mg/dL Glucose (74-99) mg/dL POC Glucose (mg/dL) 168 H 57 L 69 L (75-99) mg/dL Calcium (8.4-10.2) mg/dL 08/29/16 08/29/16 08/30/16 Range/Units 17:32 20:56 02:42 WBC (3.8-10.6) k/uL RBC (4.30-5.90) m/uL Hgb (13.0-17.5) gm/dL Hct (39.0-53.0) % MCV (80.0-100.0) fL Plt Count (150-450) k/uL PT (9.0-12.0) sec Chloride (98-107) mmol/L BUN (9-20) mg/dL Glucose (74-99) mg/dL POC Glucose (mg/dL) 67 L 118 H 122 H (75-99) mg/dL Calcium (8.4-10.2) mg/dL 08/30/16 08/30/16 08/30/16 Range/Units 05:54 06:14 06:14 WBC 3.1 L (3.8-10.6) k/uL RBC 2.96 L (4.30-5.90) m/uL Hgb 9.4 L (13.0-17.5) gm/dL Hct 30.2 L (39.0-53.0) % MCV 101.8 H (80.0-100.0) fL Plt Count 115 L (150-450) k/uL PT 14.9 H (9.0-12.0) sec Chloride (98-107) mmol/L BUN (9-20) mg/dL Glucose (74-99) mg/dL POC Glucose (mg/dL) 127 H (75-99) mg/dL Calcium (8.4-10.2) mg/dL 08/30/16 Range/Units 06:14 WBC (3.8-10.6) k/uL RBC (4.30-5.90) m/uL Hgb (13.0-17.5) gm/dL Hct (39.0-53.0) % MCV (80.0-100.0) fL Plt Count (150-450) k/uL PT (9.0-12.0) sec Chloride 111 H (98-107) mmol/L BUN 25 H (9-20) mg/dL Glucose 128 H (74-99) mg/dL POC Glucose (mg/dL) (75-99) mg/dL Calcium 8.0 L (8.4-10.2) mg/dL Assessment and Plan (1) S/P cardiac cath Status: Acute (2) Triple vessel coronary artery disease Status: Acute (3) Diabetes Status: Acute (4) History of deep vein thrombosis Status: Acute (5) History of pulmonary embolus (PE) Status: Acute (6) Hyperlipidemia Status: Acute (7) Thrombocytopenia Status: Acute (8) S/P CABG (coronary artery bypass graft) Status: Acute Plan: From cardiology's perspective, we will continue current medications. Progressing well. DNP note has been reviewed, I agree with a documented findings and plan of care. Patient was seen and examined.
--- NOTE | 2016-08-30 12:05 | P.PN ---
Progress Note - Text CV Surgery Nursing Principal diagnosis: Multivessel coronary artery disease POD #17 coronary artery bypass grafting 2 vessels (left internal mammary artery to left anterior descending artery, saphenous vein graft to obtuse marginal artery). Endoscopic vein harvest left greater saphenous vein. Epi- aortic ultrasound. Transesophageal echocardiogram. Postoperative acute hypoxic respiratory failure requiring mechanical ventilation , failure to wean secondary to Serratia marcescens pneumonia, an unexpected postoperative complication, likely pneumonia acquired prior to surgery. Postoperative paroxysmal atrial fibrillation, expected outcome, treated with amiodarone. History of DVT/PE, on chronic Coumadin. History of hyperlipidemia. Uncontrolled type 2 diabetes mellitus, hemoglobin A1c 7.0%. Patient is awake and alert, no distress noted. He is sitting up to the bedside chair eating his breakfast. He remains complaining of generalized weakness. Vital Signs: Afebrile Vital Signs - 24 hr 08/29/16 08/29/16 08/29/16 12:00 16:00 20:00 Temperature 96.8 F L 97.5 F L Pulse Rate [ 77 72 74 Pulse Oximetery ] Respiratory 18 18 18 Rate Blood Pressure 133/66 [Left Arm Supine] Blood Pressure 133/63 127/60 [Right Arm Supine] O2 Sat by Pulse 95 95 92 L Oximetry 08/30/16 08/30/16 00:00 04:00 Temperature 98.0 F 96.3 F L Pulse Rate [ 73 62 Pulse Oximetery ] Respiratory 18 18 Rate Blood Pressure [Left Arm Supine] Blood Pressure 129/60 130/60 [Right Arm Supine] O2 Sat by Pulse 93 L 93 L Oximetry Labs: Short CBC 08/30/16 Range/Units 06:14 WBC 3.1 L (3.8-10.6) k/uL Hgb 9.4 L (13.0-17.5) gm/dL Hct 30.2 L (39.0-53.0) % Plt Count 115 L (150-450) k/uL Neutrophils # 1.6 (1.3-7.7) k/uL BMP 08/30/16 06:14 Sodium 143 Potassium 4.1 Chloride 111 H Carbon Dioxide 27 BUN 25 H Creatinine 1.07 Glucose 128 H Calcium 8.0 L ABG ABG pH 7.50 (7.35-7.45) H 08/21/16 13:00 ABG pCO2 30 mmHg (35-45) L 08/21/16 13:00 ABG pO2 109 mmHg (83-108) H 08/21/16 13:00 ABG O2 Saturation 99.0 % (94-97) H 08/21/16 13:00 PT/INR, D-dimer PT 14.9 sec (9.0-12.0) H 08/30/16 06:14 INR 1.5 (<1.1) 08/30/16 06:14 Microbiology 08/14/16 19:56 Sputum Gram Stain - Final 08/14/16 19:56 Sputum Sputum Culture - Final Serratia marcescens 08/09/16 22:10 Nasal Swab Nasal Screen MRSA/MSSA (BRIDGET) - Final 08/09/16 22:10 Urine,Voided Urine Culture - Final Lungs: Essentially clear throughout, diminished bilateral bases. Respirations are symmetrical and unlabored. O2 sat: 93% on room air. I/S: 750-,000 mL, reviewed with the patient important of using his incentive spirometry every hour while awake. The patient did demonstrate appropriate use of his incentive spirometry. Heart: S1S2, regular rhythm and rate, negative for S3, gallop or murmur. Remote telemetry showing normal sinus rhythm heart rate 75. Sternum stable, chest incision clean with Dermabond dressing clean and dry. Heart hugger in place, patient demonstrating it appropriate use of his heart hugger. Left leg incisions clean dry and well approximated. Scant serous sanguinous drainage noted from his old KARL drain site to his left lower leg. Vincent wrap remains in place to his left leg from his toes to just above his knee. Knee-high HARRIS hose in place to his right leg and sequential compression devices in place to his bilateral lower extremities. Abdomen: Soft, nontender. Positive bowel sounds present in all 4 quadrants. Patient states his bowels moved this a.m. CBGs: 82-127 mg/dL in the last 24 hours. U/O: Adequate. 24 hr Total: Intake & Output 08/28/16 08/29/16 08/30/16 08/31/16 06:59 06:59 06:59 06:59 Intake Total 400 900 100 Output Total 843 385 3654 Balance 95 644 -1629 Weight 117.5 kg 118 kg 116 kg Active Medications Acetaminophen (Tylenol Tab) 650 mg PO Q6HR PRN PRN Reason: Mild Pain or Fever > 38.3 C Last Admin: 08/19/16 20:16 Dose: 650 mg Albuterol/Ipratropium (Duoneb 0.5 Mg-3 Mg/3 Ml Soln) 3 ml INHALATION RT-Q2H PRN PRN Reason: Shortness Of Breath Or Wheezing Last Admin: 08/22/16 11:20 Dose: 3 ml Amiodarone HCl (Cordarone) 200 mg PO DAILY [facility] Last Admin: 08/29/16 10:06 Dose: 200 mg Aspirin (Aspirin) 325 mg PO DAILY [facility] Last Admin: 08/29/16 10:05 Dose: 325 mg Atorvastatin Calcium (Lipitor) 40 mg PO DAILY [facility] Last Admin: 08/29/16 10:05 Dose: 40 mg Benzocaine/Menthol (Cepacol Lozenge) 1 each MUCOUS MEM Q2H PRN PRN Reason: Sore Throat Bisacodyl (Dulcolax) 10 mg RECTAL DAILY PRN PRN Reason: Constipation Last Admin: 08/16/16 09:24 Dose: 10 mg Bismuth Subsalicylate (Bismatrol) 524 mg PO Q4HR PRN PRN Reason: Diarrhea Last Admin: 08/24/16 05:31 Dose: 524 mg Dorzolamide HCl (Trusopt) 1 drops LEFT EYE DAILY [facility] Last Admin: 08/29/16 10:06 Dose: 1 drops Enoxaparin Sodium (Lovenox) 80 mg SQ Q12HR [facility] Last Admin: 08/29/16 23:10 Dose: 80 mg Furosemide (Lasix) 40 mg IV DAILY [facility] Last Admin: 08/29/16 10:06 Dose: 40 mg Glimepiride (Amaryl) 4 mg PO AC-BID [facility] Last Admin: 08/30/16 06:41 Dose: 4 mg Insulin Human Lispro (Humalog) 0 unit SQ [id number] [facility] PRN Reason: Protocol Last Admin: 08/30/16 07:43 Dose: Not Given Latanoprost (Xalatan 0.005%) 1 drops BOTH EYES HS [facility] Last Admin: 08/29/16 23:10 Dose: 1 drops Magnesium Hydroxide (Milk Of Magnesia) 2,400 mg PO BID PRN PRN Reason: Constipation Last Admin: 08/16/16 09:22 Dose: 2,400 mg Metformin HCl (Glucophage) 1,000 mg PO BID-W/MEALS [facility] Last Admin: 08/30/16 06:41 Dose: 1,000 mg Metoprolol Tartrate (Lopressor) 25 mg PO BID [facility] Last Admin: 08/29/16 23:11 Dose: 25 mg Miscellaneous Information (Magnesium Per Protocol) 1 each MISCELLANE DAILY PRN ; Protocol PRN Reason: Per Protocol Miscellaneous Information (Phosphorus Per Protocol) 1 each MISCELLANE DAILY PRN ; Protocol PRN Reason: Per Protocol Miscellaneous Information (Potassium Per Protocol) 1 each MISCELLANE DAILY PRN ; Protocol PRN Reason: Per Protocol Nystatin (Mycostatin Oral Susp) 500,000 unit PO QID [facility] Last Admin: 08/29/16 23:12 Dose: Not Given Ondansetron HCl (Zofran) 4 mg IVP Q6HR PRN PRN Reason: Nausea And Vomiting Pantoprazole Sodium (Protonix) 40 mg PO DAILY [facility] Last Admin: 08/29/16 10:06 Dose: 40 mg Prednisolone Acetate (Pred Forte 1%) 1 drops LEFT EYE MOTH [facility] Last Admin: 08/26/16 18:17 Dose: 1 drops Sodium Chloride (Saline Flush) 10 ml IV Q12HR [facility] Last Admin: 08/29/16 23:11 Dose: 10 ml Plan: 1. Continue aspirin, Lopressor, statin, continue Lasix to 40 mg IV daily. 2. Continue amiodarone for atrial fibrillation prophylaxis 3. Continue Lovenox secondary to history of DVT. Convert to Coumadin for anticoagulation. INR 1.5 this morning, will give 10 mg of Coumadin this evening. 4. Encourage incentive spirometry use every hour while awake. 5. Increase activity as tolerated. Ambulate as able. Physical therapy to follow. 6. Daily labs. 7. GI/DVT prophylaxis. 8. Change dressing to his left leg incisions as needed. 9. May discharge to subacute rehab when bed available. [facility].
[2016-08-30 12:07] LABS: Glucose,Whole Blood 116 mg/dL (75-99)
--- NOTE | 2016-08-30 15:17 | P.PN ---
Subjective 80-year-old male patient is postop day #15. The patient is doing well. No significant respiratory distress at this point. Sternum stable clean and intact. He is off oxygen. Pulse ox above 90% on room air. He is using incentive spirometer. No chest wall pain. No cardiac arrhythmias. No nausea or vomiting. Is tolerating his diet. The plan is to move this patient to rehab within next 24-48 hours. Objective - Vital Signs Vital signs: Vital Signs Temp 96.9 F L 08/30/16 12:23 Pulse 70 08/30/16 12:23 Resp 18 08/30/16 12:23 BP 115/56 08/30/16 12:23 Pulse Ox 97 08/30/16 12:23 Intake & Output 08/29/16 08/30/16 08/30/16 18:59 06:59 18:59 Intake Total 100 Output Total 775 954 351 Balance -775 -854 -351 Weight 116 kg 116 kg Intake: Oral 100 Output: Urine 775 950 350 Stool 4 1 Other: Voiding Method Urinal Urinal Urinal # Voids 1 1 0 ABP, PAP, CO, CI - Last Documented Arterial Blood Pressure 144/51 Pulmonary Artery Pressure 41/23 Cardiac Output 7.4 Cardiac Index 3.3 - Exam Obese, comfortable likely distress.Head exam was generally normal. There was no scleral icterus or corneal arcus. Mucous membranes were moist.Neck was supple and without jugular venous distension, thyromegaly, or carotid bruits. Carotids were easily palpable bilaterally. There was no adenopathy. Lung sounds are diminished bilaterally otherwise clear. There is no wheezes or rhonchi and there is some few crackles in lung bases bilaterally. Heart sounds are regular , positive S1-S2, sternum stable clean and intact. No active drainage from the wounds.Abdominal exam revealed normal bowel sounds. The abdomen was soft, non- tender, and without masses, organomegaly, or appreciable enlargement of the abdominal aorta. Extremities are showing +1 edema and there is no cyanosis or clubbing at this point. - Labs CBC & Chem 7: 08/30/16 06:14 08/30/16 06:14 Labs: Abnormal Lab Results - Last 24 Hours (Table) 08/29/16 08/29/16 08/29/16 Range/Units 16:51 17:12 17:32 WBC (3.8-10.6) k/uL RBC (4.30-5.90) m/uL Hgb (13.0-17.5) gm/dL Hct (39.0-53.0) % MCV (80.0-100.0) fL Plt Count (150-450) k/uL PT (9.0-12.0) sec Chloride (98-107) mmol/L BUN (9-20) mg/dL Glucose (74-99) mg/dL POC Glucose (mg/dL) 57 L 69 L 67 L (75-99) mg/dL Calcium (8.4-10.2) mg/dL 08/29/16 08/30/16 08/30/16 Range/Units 20:56 02:42 05:54 WBC (3.8-10.6) k/uL RBC (4.30-5.90) m/uL Hgb (13.0-17.5) gm/dL Hct (39.0-53.0) % MCV (80.0-100.0) fL Plt Count (150-450) k/uL PT (9.0-12.0) sec Chloride (98-107) mmol/L BUN (9-20) mg/dL Glucose (74-99) mg/dL POC Glucose (mg/dL) 118 H 122 H 127 H (75-99) mg/dL Calcium (8.4-10.2) mg/dL 08/30/16 08/30/16 08/30/16 Range/Units 06:14 06:14 06:14 WBC 3.1 L (3.8-10.6) k/uL RBC 2.96 L (4.30-5.90) m/uL Hgb 9.4 L (13.0-17.5) gm/dL Hct 30.2 L (39.0-53.0) % MCV 101.8 H (80.0-100.0) fL Plt Count 115 L (150-450) k/uL PT 14.9 H (9.0-12.0) sec Chloride 111 H (98-107) mmol/L BUN 25 H (9-20) mg/dL Glucose 128 H (74-99) mg/dL POC Glucose (mg/dL) (75-99) mg/dL Calcium 8.0 L (8.4-10.2) mg/dL 08/30/16 Range/Units 12:03 WBC (3.8-10.6) k/uL RBC (4.30-5.90) m/uL Hgb (13.0-17.5) gm/dL Hct (39.0-53.0) % MCV (80.0-100.0) fL Plt Count (150-450) k/uL PT (9.0-12.0) sec Chloride (98-107) mmol/L BUN (9-20) mg/dL Glucose (74-99) mg/dL POC Glucose (mg/dL) 116 H (75-99) mg/dL Calcium (8.4-10.2) mg/dL Assessment and Plan Plan: Assessment 1 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 The patient underwent carotid bypass surgery and currently is postop day #15 2 postoperative pneumonia secondary to Serratia marcescens, essentially involving the right lower lobe, status post prolonged ventilator dependent respiratory failure from which the patient has recovered. 2 diabetes mellitus 3 hypertension 4 post thoracotomy respiratory failure, resolved 5 previous history of DVT and pulmonary embolism , maintained on warfarin , PT/ INR is subtherapeutic at this point , and the patient is also on Lovenox 6 thrombocytopenia him a stable with a platelet count, without evidence of any acute bleeding 7 acute kidney injury, recovered and the patient's kidney function is normalized 8 critical illness polyneuropathy/myopathy 9 postoperative anemia currently hemoglobin is stable at 9.4 10 proximal atrial fibrillation, current rhythm is sinus. The patient is on amiodarone and Coumadin. Plan Continue that the combination with warfarin. Achieve an INR between 2 and 3. Then discontinue the Lovenox. Continue using incentive spirometer. Switch this patient to oral Lasix with next 24-48 hours. Discharge to rehabilitation per medicine and cardiothoracic surgery.
[2016-08-30] MEDS: prednisoLONE ACETATE 1% OPHTH DROPS 1 ML BTL LEFT EYE SCH (16:43)
[2016-08-30 17:04] LABS: Glucose,Whole Blood 87 mg/dL (75-99)
--- NOTE | 2016-08-30 17:55 | PN ---
DATE OF SERVICE: 08/30/16. PRESENTING COMPLAINT: Chest pain. INTERVAL HISTORY: This is a patient who is status post CABG progressing slowly, tolerating his diet working with physical therapy currently up on the bedside commode chair preparing for a shower. Continues to work with PT and OT however, progress is slow. Review of systems done for constitutional, cardiovascular, pulmonary GI with constant with relevant findings above as above. CURRENT MEDICATIONS: Amiodarone 200 mg p.o. daily, aspirin 325 mg p.o. daily, Lipitor 40 mg p.o. daily, Lovenox 80 mg subcutaneously every 12 hours, Lasix 20 mg IV push every 12 hours, metoprolol 25 mg p.o. b.i.d., warfarin, Glucophage, Amaryl. PHYSICAL EXAMINATION: VITAL SIGNS: Temperature 97.1, pulse 82, respiratory rate 18, blood pressure 128/59, oxygen saturation 96% on room air. GENERAL APPEARANCE: Patient sitting on the commode chair. No distress. Mildly short of breath with minimal activity. EYES: Pupils equal. Conjunctivae normal. NECK: JVD unable to assess. Mass not palpable. RESPIRATORY: Effort increased. LUNGS: Diminished breath sounds bilaterally. CARDIOVASCULAR: First and second sounds noted. Generalized edema. ABDOMEN: Soft, nontender. Liver and spleen not palpable. PSYCHIATRY: Alert and oriented x3. Mood and affect are normal. INVESTIGATIONS: Hemoglobin 9.4, platelet count 115, INR 1.5. Blood glucose 128. ASSESSMENT: 1. Status post coronary artery bypass grafting, slowly improving. 2. Medical debility secondary to #1. 3. Coronary artery disease. 4. Diabetes mellitus, type II, on oral hypoglycemics. 5. Hypoglycemia secondary to insulin administration, medications adjusted. 6. Chronic deep vein thrombosis, pulmonary embolism, on Coumadin chronically. 7. Primary osteoarthritis, multiple joints bilaterally. 8. Benign prosthetic hypertrophy. 9. 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 10. Pneumonia secondary to Serratia Marcescens, clinically improving. 11. Postop blood loss anemia as expected from surgery. PLAN: Continue current medication and treatment plan. Tentative discharge plan to [facility] as soon as a bed is available at [facility]. Plan of care discussed with the patient. Patient seen and examined by nurse practitioner, Fiorella Kapadia, and all elements of the case discussed with attending, Dr. Long. I performed a history and physical examination of this patient and discussed the same with the dictator. I agree with the dictator's note. Any additional findings/opinions, etc. will be noted.
[2016-08-30] MEDS ORDERED: WARFARIN 10 MG TAB PO ONE (18:00)
[2016-08-30 20:48] LABS: Glucose,Whole Blood 138 mg/dL (75-99)
[2016-08-30] MEDS: LATANOPROST 0.005% OPHTH DROPS 2.5 ML BTL BOTH EYES SCH (21:24)
[2016-08-31] MEDS: INSULIN LISPRO (humaLOG) 300 UNIT/3 ML VIAL SQ SCH ×3 (01:52→11:56)
[2016-08-31 05:53] VITALS: RESP 18
[2016-08-31 06:00] LABS: Glucose,Whole Blood 100 mg/dL (75-99)
[2016-08-31] MEDS: metFORMIN 500 MG TAB PO SCH (07:04)
[2016-08-31] MEDS: GLIMEPIRIDE 4 MG TAB PO SCH (07:04)
[2016-08-31 07:07] LABS: Basophils % (A) 1 %; CH 32.1; CHCM 32.6; Eosinophils # (A) 0.1 k/uL (0-0.7); Eosinophils % (A) 4 %; HCT 28.8 % (39.0-53.0); HDW 3.55; HGB 9.5 gm/dL (13.0-17.5); Hypochromasia Moderate; Luc # (Auto) 0.08; Luc % (Auto) 2; Lymphocytes # (A) 1.2 k/uL (1.0-4.8); Lymphocytes % (A) 37 %; MCH 32.7 pg (25.0-35.0); MCV 99.1 fL (80.0-100.0); Macrocytosis Slight; Mean Platelet Volume 8.6; Monocytes # (A) 0.2 k/uL (0-1.0); Monocytes % (A) 5 %; Neutrophils # (A) 1.7 k/uL (1.3-7.7); Neutrophils % (A) 51 %; Poikilocytosis Slight; RDW 15.1 % (11.5-15.5); WBC 3.2 k/uL (3.8-10.6); WBC (Perox) 3.45
[2016-08-31 07:10] LABS: INR 1.8 (<1.1); Prothrombin Time 17.5 sec (9.0-12.0)
[2016-08-31 07:29] LABS: Anion Gap 4 mmol/L; Blood Urea Nitrogen 25 mg/dL (9-20); Carbon Dioxide 27 mmol/L (22-30); Chloride 112 mmol/L (98-107); Glucose 89 mg/dL (74-99); Non-African American GFR(MDRD) >60 (>60 ml/min/1.73 sqM); Potassium 4.3 mmol/L (3.5-5.1); Sodium 143 mmol/L (137-145)
--- NOTE | 2016-08-31 07:32 | PN ---
DATE OF SERVICE: 08/30/2016 Attending note: This patient was seen and examined by me earlier today. I reviewed the note of my nurse practitioner, Ms. Kapadia. Discussed additional findings below. Patient is status post coronary artery bypass grafting. Breathing is getting better. On examination, LUNGS: Decreased breath sounds. CARDIOVASCULAR: First and second sounds normal. ASSESSMENT: 1. Status post coronary artery bypass grafting. Overall doing better. 2. Patient had hypoglycemia and had cut back on the insulin yesterday. Sugars are doing better. Keep a close eye on her sugars.
[2016-08-31 08:31] LABS: Manual Review Performed; RBC Morphology Normal
[2016-08-31] MEDS: FUROSEMIDE 10 MG/ML 4 ML VIAL IV SCH (08:33)
[2016-08-31] MEDS: NYSTATIN 100,000 UNIT/ML SUSP 500,000 UNIT/5 ML CUP PO SCH ×2 (08:33→11:56)
[2016-08-31] MEDS: ASPIRIN 325 MG TAB PO SCH (08:47)
[2016-08-31] MEDS: ATORVASTATIN 40 MG TAB PO SCH (08:47)
[2016-08-31] MEDS: AMIODARONE 200 MG TAB PO SCH (08:47)
[2016-08-31] MEDS: DORZOLAMIDE HCL 2% DROPS 10 ML BTL LEFT EYE SCH (08:47)
[2016-08-31] MEDS: METOPROLOL TARTRATE 25 MG TAB PO SCH (08:48)
[2016-08-31] MEDS: PANTOPRAZOLE 40 MG TABLET PO SCH (08:48)
[2016-08-31 11:45] LABS: Glucose,Whole Blood 117 mg/dL (75-99)
--- NOTE | 2016-08-31 11:50 | P.PN ---
Progress Note - Text CV Surgery Nursing Principal diagnosis: Multivessel coronary artery disease POD #18 coronary artery bypass grafting 2 vessels (left internal mammary artery to left anterior descending artery, saphenous vein graft to obtuse marginal artery). Endoscopic vein harvest left greater saphenous vein. Epi- aortic ultrasound. Transesophageal echocardiogram. Postoperative acute hypoxic respiratory failure requiring mechanical ventilation , failure to wean secondary to Serratia marcescens pneumonia, an unexpected postoperative complication, likely pneumonia acquired prior to surgery. Postoperative paroxysmal atrial fibrillation, expected outcome, treated with amiodarone. History of DVT/PE, on chronic Coumadin. History of hyperlipidemia. Uncontrolled type 2 diabetes mellitus, hemoglobin A1c 7.0%. Patient awake and alert, no distress noted, complaining of generalized weakness. He is sitting up to the bedside chair eating his breakfast. Vital Signs: Afebrile Vital Signs - 24 hr 08/30/16 08/30/16 08/30/16 12:23 16:46 20:00 Temperature 96.9 F L 97.1 F L 97.8 F Pulse Rate [ 70 75 79 Pulse Oximetery ] Respiratory 18 18 16 Rate Blood Pressure 115/56 147/67 119/61 [Right Arm Supine] O2 Sat by Pulse 97 95 95 Oximetry 08/31/16 08/31/16 08/31/16 00:00 04:00 08:09 Temperature 97.1 F L 97.4 F L Pulse Rate [ 72 69 Pulse Oximetery ] Respiratory 17 18 Rate Blood Pressure 121/56 111/57 [Right Arm Supine] O2 Sat by Pulse 95 95 94 L Oximetry Labs: Short CBC 08/31/16 Range/Units 06:37 WBC 3.2 L (3.8-10.6) k/uL Hgb 9.5 L (13.0-17.5) gm/dL Hct 28.8 L (39.0-53.0) % BMP 08/31/16 06:37 Sodium 143 Potassium 4.3 Chloride 112 H Carbon Dioxide 27 BUN 25 H Creatinine 1.06 Glucose 89 Calcium 8.0 L ABG ABG pH 7.50 (7.35-7.45) H 08/21/16 13:00 ABG pCO2 30 mmHg (35-45) L 08/21/16 13:00 ABG pO2 109 mmHg (83-108) H 08/21/16 13:00 ABG O2 Saturation 99.0 % (94-97) H 08/21/16 13:00 PT/INR, D-dimer PT 17.5 sec (9.0-12.0) H 08/31/16 06:37 INR 1.8 (<1.1) 08/31/16 06:37 Microbiology 08/14/16 19:56 Sputum Gram Stain - Final 08/14/16 19:56 Sputum Sputum Culture - Final Serratia marcescens 08/09/16 22:10 Nasal Swab Nasal Screen MRSA/MSSA ([facility]GET) - Final 08/09/16 22:10 Urine,Voided Urine Culture - Final Lungs: Essentially clear throughout, diminished to his bilateral bases. Respirations are symmetrical and unlabored. O2 sat: 94% on room air. I/S: 1000 mL, reviewed with the patient important of using his incentive spirometry every hour while awake. The patient did give a good return demonstration on his incentive spirometry. He will need encouragement on the use of his incentive spirometry due to his generalized weakness. Heart: S1S2, regular rhythm and rate, negative for S3, gallop or murmur. remote telemetry showing normal sinus rhythm heart rate 75. mold runner tech reported the patient did have an episode of heart rate in the 40s ( bradycardia) during the middle of the night. Sternum stable, chest incision clean with Dermabond dressing clean and dry. Heart hugger in place, patient is demonstrating appropriate use of his heart hugger. Left leg incisions clean , dry and well approximated. no drainage noted. Knee-high HARRIS hose and sequential compression devices in place to his bilateral lower extremities. Abdomen: Soft, nontender. Positive bowel sounds present in all 4 quadrants. The patient had a bowel movement yesterday 08/30/2016. CBGs: 87-138 mg/dL in the last 24 hours. U/O: Adequate. 24 hr Total: Intake & Output 08/29/16 08/30/16 08/31/16 09/01/16 06:59 06:59 06:59 06:59 Intake Total 900 100 20 240 Output Total 256 4659 852 Balance 804 -4059 -902 240 Weight 118 kg 116 kg 110.3 kg Active Medications Acetaminophen (Tylenol Tab) 650 mg PO Q6HR PRN PRN Reason: Mild Pain or Fever > 38.3 C Last Admin: 08/19/16 20:16 Dose: 650 mg Albuterol/Ipratropium (Duoneb 0.5 Mg-3 Mg/3 Ml Soln) 3 ml INHALATION RT-Q2H PRN PRN Reason: Shortness Of Breath Or Wheezing Last Admin: 08/22/16 11:20 Dose: 3 ml Amiodarone HCl (Cordarone) 200 mg PO DAILY [facility] Last Admin: 08/30/16 08:46 Dose: 200 mg Aspirin (Aspirin) 325 mg PO DAILY [facility] Last Admin: 08/30/16 08:45 Dose: 325 mg Atorvastatin Calcium (Lipitor) 40 mg PO DAILY [facility] Last Admin: 08/30/16 08:45 Dose: 40 mg Benzocaine/Menthol (Cepacol Lozenge) 1 each MUCOUS MEM Q2H PRN PRN Reason: Sore Throat Bisacodyl (Dulcolax) 10 mg RECTAL DAILY PRN PRN Reason: Constipation Last Admin: 08/16/16 09:24 Dose: 10 mg Bismuth Subsalicylate (Bismatrol) 524 mg PO Q4HR PRN PRN Reason: Diarrhea Last Admin: 08/24/16 05:31 Dose: 524 mg Dorzolamide HCl (Trusopt) 1 drops LEFT EYE DAILY [facility] Last Admin: 08/30/16 08:44 Dose: 1 drops Enoxaparin Sodium (Lovenox) 80 mg SQ Q12HR [facility] Last Admin: 08/30/16 21:24 Dose: 80 mg Furosemide (Lasix) 40 mg IV DAILY [facility] Last Admin: 08/30/16 08:55 Dose: Not Given Glimepiride (Amaryl) 4 mg PO AC-BID [facility] Last Admin: 08/31/16 07:04 Dose: 4 mg Insulin Human Lispro (Humalog) 0 unit SQ [id number] [facility] PRN Reason: Protocol Last Admin: 08/31/16 05:59 Dose: Not Given Latanoprost (Xalatan 0.005%) 1 drops BOTH EYES [facility] Last Admin: 08/30/16 21:24 Dose: 1 drops Magnesium Hydroxide (Milk Of Magnesia) 2,400 mg PO BID PRN PRN Reason: Constipation Last Admin: 08/16/16 09:22 Dose: 2,400 mg Metformin HCl (Glucophage) 1,000 mg PO BID-W/MEALS [facility] Last Admin: 08/31/16 07:04 Dose: 1,000 mg Metoprolol Tartrate (Lopressor) 25 mg PO BID [facility] Last Admin: 08/30/16 21:23 Dose: 25 mg Miscellaneous Information (Magnesium Per Protocol) 1 each MISCELLANE DAILY PRN ; Protocol PRN Reason: Per Protocol Miscellaneous Information (Phosphorus Per Protocol) 1 each MISCELLANE DAILY PRN ; Protocol PRN Reason: Per Protocol Miscellaneous Information (Potassium Per Protocol) 1 each MISCELLANE DAILY PRN ; Protocol PRN Reason: Per Protocol Nystatin (Mycostatin Oral Susp) 500,000 unit PO QID [facility] Last Admin: 08/30/16 21:23 Dose: Not Given Ondansetron HCl (Zofran) 4 mg IVP Q6HR PRN PRN Reason: Nausea And Vomiting Pantoprazole Sodium (Protonix) 40 mg PO DAILY [facility] Last Admin: 08/30/16 08:46 Dose: 40 mg Prednisolone Acetate (Pred Forte 1%) 1 drops LEFT EYE MOTH [facility] Last Admin: 08/30/16 16:43 Dose: 1 drops Sodium Chloride (Saline Flush) 10 ml IV Q12HR [facility] Last Admin: 08/30/16 21:24 Dose: 10 ml Plan: 1. Continue aspirin 81 mg po daily, Lopressor, statin, continue Lasix to 40 mg IV daily. 2. Continue amiodarone for atrial fibrillation prophylaxis 3. Discontinue Lovenox. Coumadin for anticoagulation. INR 1.8 this morning, will give 10 mg of Coumadin this evening. History of DVT. 4. Encourage incentive spirometry use every hour while awake. 5. Increase activity as tolerated. Ambulate as able. Physical therapy to follow. 6. Daily labs PT/INR. 7. GI/DVT prophylaxis. 8. Change dressing to his left leg incisions as needed. 9. May discharge to subacute rehab when bed available. [facility] prec[facility].
--- NOTE | 2016-08-31 12:08 | PN ---
DATE OF SERVICE: 08/31/2016 PRESENTING COMPLAINT: Chest pain. INTERVAL HISTORY: This is a patient who is status post CABG progressing slowly, tolerating his diet, working with physical therapy. Currently up at the bedside in a chair. Complains of frequent diarrhea. Expressed desire to see more improvement. Review of systems done for constitutional, cardiovascular, pulmonary, GI with relevant findings as above. CURRENT MEDICATIONS: Amiodarone, aspirin, Lipitor, Lovenox, Lasix, metoprolol, warfarin, Glucophage, Amaryl. PHYSICAL EXAM: VITAL SIGNS: Temperature 97.3, pulse 81, respirations 20, blood pressure 125/63, oxygen saturation 96% on room air. GENERAL APPEARANCE: Sitting up in a chair at the bedside. Calm, comfortable. EYES: Pupils equal. Conjunctivae normal. NECK: JVD not raised. Mass not palpable. LUNGS: Diminished bilaterally. RESPIRATORY: Effort normal. CARDIOVASCULAR: First and second sounds noted. Generalized edema. ABDOMEN: Soft, nontender. Liver and spleen not palpable. PSYCHIATRY: Alert and oriented x3. Mood and affect are normal INVESTIGATIONS: Hemoglobin 9.5, platelet count 97, INR 1.8. Sodium 143, BUN 25, creatinine 1.06. Blood glucose 100. ASSESSMENT: 1. Status post coronary artery bypass grafting, overall doing better. 2. Medical debility secondary to #1. 3. Patient had hypoglycemia, insulin reduced yesterday. Sugars are better today. 4. Coronary artery disease. 5. Diabetes mellitus, type 2, on oral hypoglycemics. 6. Chronic deep vein thrombosis, pulmonary embolism, on Coumadin chronically. 7. Primary osteoarthritis, multiple joints bilaterally. 8. Benign prostatic hypertrophy. 9. Thrombocytopenia likely, idiopathic thrombocytopenic purpura. 10. Pneumonia secondary to Serratia marcescens, clinically improving. 11. Postoperative blood loss anemia as expected from surgery. PLAN: Continue current medication and treatment plan. Awaiting discharged to [facility] pending available bed. Patient is having frequent bouts of diarrhea. C. difficile specimen sent, awaiting culture results. Plan of care discussed with the patient. Will follow. Patient seen and examined by nurse practitioner, Fiorella Kapadia, and all elements of the case discussed with attending, Dr. Long.
[2016-08-31 12:11] VITALS: BP 121/65; PULSE 78; TEMP 97.1
--- NOTE | 2016-08-31 12:35 | P.PN ---
Subjective 80-year-old male patient is postop day #15. The patient is doing well. No significant respiratory distress at this point. Sternum stable clean and intact. He is off oxygen. Pulse ox above 90% on room air. He is using incentive spirometer. No chest wall pain. No cardiac arrhythmias. No nausea or vomiting. Is tolerating his diet. The plan is to move this patient to rehab within next 24-48 hours. On 08/31/2016 the patient is being seen in follow-up. This patient is awaiting authorization regarding his transfers to rehabilitation. He is postop day #16. His resting comfortably in bed. He is able to sit up on a chair for prolonged periods. No major swelling lower extremities pain and the patient is taking Lasix 40 g IV every 24 hours. Cardiac rhythm is sinus. He is on amiodarone maintenance. He is on warfarin with an INR of 1.8. He is using his incentive spirometer. Objective - Vital Signs Vital signs: Vital Signs Temp 97.1 F L 08/31/16 12:10 Pulse 78 08/31/16 12:10 Resp 18 08/31/16 12:10 BP 121/65 08/31/16 12:10 Pulse Ox 97 08/31/16 12:10 Intake & Output 08/30/16 08/31/16 08/31/16 18:59 06:59 18:59 Intake Total 20 240 Output Total 351 501 Balance -351 -481 240 Weight 116 kg 110.3 kg Intake: IV 20 0.9 flush 20 Oral 240 Output: Urine 350 500 Stool 1 1 Other: Voiding Method Urinal Urinal Urinal # Voids 1 2 1 # Bowel Movements 1 1 ABP, PAP, CO, CI - Last Documented Arterial Blood Pressure 144/51 Pulmonary Artery Pressure 41/23 Cardiac Output 7.4 Cardiac Index 3.3 - Exam Obese, comfortable likely distress.Head exam was generally normal. There was no scleral icterus or corneal arcus. Mucous membranes were moist.Neck was supple and without jugular venous distension, thyromegaly, or carotid bruits. Carotids were easily palpable bilaterally. There was no adenopathy. Lung sounds are diminished bilaterally otherwise clear. There is no wheezes or rhonchi and there is some few crackles in lung bases bilaterally. Heart sounds are regular , positive S1-S2, sternum stable clean and intact. No active drainage from the wounds.Abdominal exam revealed normal bowel sounds. The abdomen was soft, non- tender, and without masses, organomegaly, or appreciable enlargement of the abdominal aorta. Extremities are showing +1 edema and there is no cyanosis or clubbing at this point. - Labs CBC & Chem 7: 08/31/16 06:37 08/31/16 06:37 Labs: Abnormal Lab Results - Last 24 Hours (Table) 08/30/16 08/31/16 08/31/16 Range/Units 20:47 05:55 06:37 WBC (3.8-10.6) k/uL RBC (4.30-5.90) m/uL Hgb (13.0-17.5) gm/dL Hct (39.0-53.0) % Plt Count (150-450) k/uL PT 17.5 H (9.0-12.0) sec Chloride (98-107) mmol/L BUN (9-20) mg/dL POC Glucose (mg/dL) 138 H 100 H (75-99) mg/dL Calcium (8.4-10.2) mg/dL 08/31/16 08/31/16 08/31/16 Range/Units 06:37 06:37 11:38 WBC 3.2 L (3.8-10.6) k/uL RBC 2.90 L (4.30-5.90) m/uL Hgb 9.5 L (13.0-17.5) gm/dL Hct 28.8 L (39.0-53.0) % Plt Count 97 L (150-450) k/uL PT (9.0-12.0) sec Chloride 112 H (98-107) mmol/L BUN 25 H (9-20) mg/dL POC Glucose (mg/dL) 117 H (75-99) mg/dL Calcium 8.0 L (8.4-10.2) mg/dL Assessment and Plan Plan: Assessment 1 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 2 diabetes mellitus 3 hypertension 4 post thoracotomy respiratory failure, resolved 5 previous history of DVT and pulmonary embolism , maintained on warfarin , PT/ INR is subtherapeutic at this point , and the patient is also on Lovenox 6 thrombocytopenia him a stable with a platelet count, without evidence of any acute bleeding 7 acute kidney injury, recovered and the patient's kidney function is normalized 8 critical illness polyneuropathy/myopathy 9 postoperative anemia currently hemoglobin is stable at 9.5 10 proximal atrial fibrillation, current rhythm is sinus. The patient is on amiodarone and Coumadin. Plan Continue that the combination with warfarin. Achieve an INR between 2 and 3. Then discontinue the Lovenox. The INR is up to 1.8. Pulmonary status is stable. The patient is essentially awaiting his insurance authorization to be moved to ECF.
--- NOTE | 2016-08-31 12:44 | P.PN ---
Subjective Principal diagnosis: S/P coronary artery bypass grafting surgery This is an 80-year-old gentleman who is status post coronary artery bypass grafting surgery.patient has had a prolonged course postoperatively, today is being followed on the telemetry unit. He has no complaints at the time of my examination, sitting up in the chair at bedside. Reaching 750 on his incentive spirometry. Still states that he feels somewhat uncoordinated. Breathing is stable. Blood pressure 128/60 with a heart rate in the 60s. Hemoglobin 9.4, platelet count 115, INR 1.5. Continues to be on IV Lasix. Creatinine 1.07. 08/31/2016 Patient seen and examined this morning, sitting up in the chair at bedside. Overall he does state that he is feeling stronger today. Blood pressure 120/60 with a heart rate in the 70s. Hemoglobin today 9.5, INR 1.8, potassium 4.3, BUN 25, creatinine 1.0. Magnesium level 2.0. Arrangements being made to transfer to rehab today. Objective - Vital Signs Vital signs: Vital Signs Temp 97.1 F L 08/31/16 12:10 Pulse 78 08/31/16 12:10 Resp 18 08/31/16 12:10 BP 121/65 08/31/16 12:10 Pulse Ox 97 08/31/16 12:10 Intake & Output 08/30/16 08/31/16 08/31/16 18:59 06:59 18:59 Intake Total 20 360 Output Total 351 501 300 Balance -351 -481 60 Weight 116 kg 110.3 kg Intake: IV 20 0.9 flush 20 Oral 360 Output: Urine 350 500 300 Stool 1 1 Other: Voiding Method Urinal Urinal Urinal # Voids 1 2 1 # Bowel Movements 1 1 ABP, PAP, CO, CI - Last Documented Arterial Blood Pressure 144/51 Pulmonary Artery Pressure 41/23 Cardiac Output 7.4 Cardiac Index 3.3 - Exam PHYSICAL EXAMINATION: HEENT: Head is atraumatic, normocephalic. Pupils equal, round. Neck is supple. There is no elevated jugular venous pressure. HEART EXAMINATION: Heart S1, S2 normal. No murmur or gallop heard. CHEST EXAMINATION: Lungs are clear with diminished air entry to bilateral bases ABDOMEN: Soft, nontender. Bowel sounds are heard. No organomegaly noted. Right radial site clean and dry, good distal pulse. EXTREMITIES: 2+ peripheral pulses with 2+ evidence of peripheral edema and no calf tenderness noted. NEUROLOGIC patient is awake, alert and oriented -3. . - Labs CBC & Chem 7: 08/31/16 06:37 08/31/16 06:37 Labs: Abnormal Lab Results - Last 24 Hours (Table) 08/30/16 08/31/16 08/31/16 Range/Units 20:47 05:55 06:37 WBC (3.8-10.6) k/uL RBC (4.30-5.90) m/uL Hgb (13.0-17.5) gm/dL Hct (39.0-53.0) % Plt Count (150-450) k/uL PT 17.5 H (9.0-12.0) sec Chloride (98-107) mmol/L BUN (9-20) mg/dL POC Glucose (mg/dL) 138 H 100 H (75-99) mg/dL Calcium (8.4-10.2) mg/dL 08/31/16 08/31/16 08/31/16 Range/Units 06:37 06:37 11:38 WBC 3.2 L (3.8-10.6) k/uL RBC 2.90 L (4.30-5.90) m/uL Hgb 9.5 L (13.0-17.5) gm/dL Hct 28.8 L (39.0-53.0) % Plt Count 97 L (150-450) k/uL PT (9.0-12.0) sec Chloride 112 H (98-107) mmol/L BUN 25 H (9-20) mg/dL POC Glucose (mg/dL) 117 H (75-99) mg/dL Calcium 8.0 L (8.4-10.2) mg/dL Assessment and Plan (1) S/P cardiac cath Status: Acute (2) Triple vessel coronary artery disease Status: Acute (3) Diabetes Status: Acute (4) History of deep vein thrombosis Status: Acute (5) History of pulmonary embolus (PE) Status: Acute (6) Hyperlipidemia Status: Acute (7) Thrombocytopenia Status: Acute (8) S/P CABG (coronary artery bypass graft) Status: Acute Plan: From cardiology's perspective, we will continue current medications. Progressing well. DNP note has been reviewed, I agree with a documented findings and plan of care. Patient was seen and examined.
--- NOTE | 2016-08-31 13:41 | P.DS ---
Providers Date of admission: 08/09/16 12:47 Attending physician: Ramin Traore Consults: 08/10/16 09:40 Consult Physician Routine Consulting Provider: Ramin Traore Consult Reason/Comments: cabg Do you want consulting provider notified?: Already Contacted 08/10/16 09:42 Consult Physician Routine Consulting Provider: Gordon Long Consult Reason/Comments: medical management Do you want consulting provider notified?: Yes 08/10/16 09:44 Consult Physician Routine Consulting Provider: Sean Nieto Consult Reason/Comments: pre-op CABG Do you want consulting provider notified?: Yes 08/10/16 10:17 Consult Physician Routine Consulting Provider: Ari Hopper Consult Reason/Comments: thrombocytopenia unknown cause, pre-op CABG Do you want consulting provider notified?: Yes 08/12/16 07:42 Consult Anesthesia Routine Consulting Provider: Anesthesia,Services Consult Reason/Comments: Cardiac Surgery Pre-Op 08/13/16 11:44 Consult Physician Routine Consulting Provider: Sean Nieto Consult Reason/Comments: Instructor Of Education Consult: post cardiac surgery Do you want consulting provider notified?: Yes 08/16/16 16:22 Consult Physician Routine Consulting Provider: Angel Tinsley Consult Reason/Comments: cardiology Do you want consulting provider notified?: Already Contacted 08/25/16 14:16 Consult Physician Routine Consulting Provider: Nikolai Ortega Consult Reason/Comments: eval for inpatient rehab Do you want consulting provider notified?: Yes Primary care physician: [facility] Course: FINAL DIAGNOSIS: 1.[ Symptomatic multivessel coronary artery disease] 2.[ Hyperlipidemia ] 3.[ Diabetes mellitus type 2, admission hemoglobin A1c 7.0% ] 4.[ History of deep vein thrombosis/pulmonary embolus, on chronic Coumadin ] 5.[ Left eye disorder] 6.[ Osteoarthritis] 7.[ Prostate disorder] 8.[ Postoperative paroxysmal atrial fibrillation] 9.[ Postoperative hypoxemia with difficulty weaning from mechanical ventilation , secondary Serratia Marcescens pneumonia involving primarily the right lower lobe.] PRINCIPAL PROCEDURE: 1.[ Selective right and left coronary angiogram] 2.[ Urgent coronary artery bypass grafting 2 vessels with placement of his left internal mammary artery to his left anterior descending coronary artery, a reverse greater saphenous vein graft placed to his obtuse marginal coronary artery.] 3.[ Endoscopic vein harvest of his left greater saphenous vein.] 4.[ Intraoperative epi-aortic ultrasound.] 5.[ Intraoperative transesophageal echocardiogram] 6.[ Postoperative 2-D echocardiogram] HISTORY OF PRESENT ILLNESS: [This is a 80-year-old gentleman who is followed by Dr. Sage Parks on an outpatient basis. He was referred to Dr. Tinsley on an outpatient basis due to some complaints of shortness of breath. The patient subsequently underwent a stress test which was abnormal. Due to the patient's complaints of shortness of breath and abnormal stress test it was recommended the patient undergo an elective Cardiac catheterization. On 08/09/2016 the patient underwent a selective right and left coronary artery angiogram which demonstrated a heavily calcified right coronary artery which was totally occluded in the midportion, his left main coronary artery to have a stenosis of 80-90% which also involved the ostial left circumflex, his OM branch showed a stenosis of 90-95%, and his left anterior descending coronary artery showed a critical stenosis of 80-90%. A left ventriculogram was not completed during the heart catheterization. On 08/09/2016 the patient also underwent a 2-D echocardiogram which showed trace tricuspid regurgitation, moderate concentric left ventricular hypertrophy, trace mitral regurgitation, and an overall left ventricular systolic function to be low normal with an ejection fraction between 50 and 55%. The above-mentioned studies were reviewed with the patient by Dr. Tinsley and by Dr. Traore and an urgent coronary artery bypass grafting surgery was recommended.] HOSPITAL COURSE:[ After obtaining consent the patient was taken to the operating room where Dr. Traore performed an urgent coronary artery bypass grafting surgery 2 vessels with placement of his left internal mammary artery to his left anterior descending coronary artery, a saphenous vein graft placed to his obtuse marginal coronary artery, endoscopic vein harvest of his left greater saphenous vein, intraoperative transesophageal echocardiogram and epi- aortic ultrasound. The patient was subsequently transferred to the cardiovascular intensive care unit where he had somewhat of a stormy recovery requiring prolonged mechanical ventilator support secondary to hypoxemia and Serratia Marcescens pneumonia primarily involving the right lower lobe, which was treated accordingly. The patient was subsequently extubated and he was subsequently weaned off his oxygen support and was able to maintain an oxygen saturation greater than 93% on room air. The patient was subsequent transferred to [address] [place] [address] for further rehabilitation and monitoring. Postoperatively the patient did have some paroxysmal atrial fibrillation which was treated accordingly. A postoperative 2-D echocardiogram was completed which showed an overall left ventricular systolic function to be normal with an ejection fraction of 60-65%. The patient will be discharged today to [facility] for further rehabilitation needs.] COMPLICATIONS: [His recovery was complicated by prolonged mechanical ventilator support secondary to hypoxemia and Serratia marcescens pneumonia primarily involving the right lower lobe. It was also complicated by postoperative paroxysmal atrial fibrillation which was treated accordingly.] CONSULTATIONS: 1.[ Dr. Tinsley for cardiology management] 2.[ Dr. Nieto for pulmonary and ventilator management] 3.[ Dr. Long for medical management] DISCHARGE INSTRUCTIONS: 1. No driving for 4 weeks, or until physician gives their ok. 2. The patient should sleep in their own bed, no medical bed needed. 3. Stairs are not an issue. If the bedroom is upstairs, it is advised that the patient go up at night and down in the morning for the first week. Go slowly, using handrail and take 1 step at a time. 4. HARRIS hose are to be worn for 30 days or until physician discontinues. 5. Heart hugger is to be worn 100% of the time until physician discontinues.( except when showering) 6. No lifting, pushing, or pulling more than 10 pounds for 12 weeks. The physician will advise of any restriction changes. 7. The patient is expected to continue the prescribed walking program. 8. Continue pain control per as needed orders. 9. Continue with incentive spirometry and splinting/heart hugger until otherwise directed by the physician. 10. Must shower daily using liquid antibacterial soap and a separate white washcloth for each individual incision. 11. Routine sternal incision care thereafter no ointments, lotions or powders on the incisions. 12. Please notify surgeon/nurse practitioner for temperature greater than 101F or purulent drainage from incisions SUBACUTE REHAB TO PROVIDE: RN SKILLED HOME CARE SERVICES FOR POST-OP SURGICAL PATIENTS WITH THE FOLLOWING: Coronary Artery Bypass Surgery (CABG), Mitral Valve Replacement/ Repair ( MVR), Aortic Valve Replacement/Repair (AVR) RN TO CONTINUE EDUCATION FROM ``ROAD TO A HEALTH HEART PATIENT EDUCATION MANUAL (GIVEN TO PATIENT IN THE HOSPITAL) MEDICATION RECONCILIATION WITH EDUCATION NEEDED ON FIRST HOME VISIT EMPHASIZE IMPORTANCE OF WEARING BREAST SUPPORT/HEART HUGGER ENCOURAGE USE OF INCENTIVE SPIROMETER 10 X EVERY HOUR WHILE AWAKE ENCOURAGE UTILIZATION OF LOWER EXTREMITY COMPRESSION STOCKINGS/HARRIS HOSE and ELEVATE LEGS ABOVE LEVEL OF HEART WHILE AT REST. ENCOURAGE AMBULATION 3-5x/day INCREASING TOLERATES, WHILE AVOID EXTREMES IN TEMPERATURE REMOVAL OF SUTURES: NURSING SERVICES TO REMOVE SUTURES TWO WEEKS POST SURGICAL DATE [ default ]. If any questions regarding suture removal please call the office at [phone]. LABORATORY: Daily PT and INRs for Coumadin dosing, results called to Dr. Tinsley's office at [phone] for Coumadin dosing. CBC, CMP TO BE DRAWN ON THE THIRD DAY POST DISCHARGE, , 09/02/2016, (RAN STAT) FAX RESULTS TO [phone]. HEALTH PARAMETERS: WEIGHT: NOTIFY MD OF WEIGHT GAIN OF 2 LBS IN 24 HOURS OR 5 LBS IN ONE WEEK HR: NOTIFY MD OF HR <55 BPM OR HR>100 BPM BP: NOTIFY MD IF BP <90/55 OR BP>140/100 O2 SAT: NOTIFY MD IF PO2<93% ON ROOM AIR SEND HEALTH REPORT TO [employer] STATISTICAL PROGRAMMER AND CARDIOVASCULAR SURGEON THE FIRST WEEK OF CARE AND THEN BI-WEEKLY. PLEASE ADDITIONALLY COMMUNICATE ANY ABNORMALS AND NEW FINDINGS TO THE SURGEONS OFFICE. Plan - Discharge Summary New Discharge Prescriptions: New Acetaminophen Tab [Tylenol] 650 mg PO Q6HR PRN tab PRN Reason: Mild Pain or Fever > 38.3 C Amiodarone [Cordarone] 200 mg PO DAILY tab Atorvastatin [Lipitor] 40 mg PO DAILY tab Bisacodyl [Dulcolax] 10 mg RECTAL DAILY PRN suppositor PRN Reason: Constipation Bismuth Subsalicylate [Bismatrol] 524 mg PO Q4HR PRN bottle PRN Reason: Diarrhea Furosemide [Lasix] 40 mg PO DAILY #14 tablet INSULIN LISPRO (humaLOG) [humaLOG (formulary)] 0 unit SQ [id number] vial Ipratropium-Albuterol Nebulize [Duoneb 0.5 mg-3 mg/3 ml Soln] 3 ml INHALATION RT-Q2H PRN neb PRN Reason: Shortness Of Breath Or Wheezing Magnesium Hydroxide [Milk of Magnesia Concentrate] 2,400 mg PO BID PRN dose PRN Reason: Constipation Metoprolol Tartrate [Lopressor] 25 mg PO BID tab Pantoprazole [Protonix] 40 mg PO DAILY tab Aspirin 81 mg PO DAILY tab Continue Glimepiride [Amaryl] 4 mg PO BID Dorzolamide 2% [Trusopt 2%] 1 drops LEFT EYE BID Warfarin [Coumadin] 10 mg PO DAILY prednisoLONE ACETATE 1% OPHTH [Pred Forte 1%] 1 drops LEFT EYE MOTH metFORMIN HCL [Glucophage] 500 mg PO TID-W/MEALS Latanoprost [Xalatan 0.005%] 1 drop BOTH EYES HS Discontinued Pravastatin Sodium [Pravachol] 10 mg PO DAILY Metoprolol Succinate [Toprol XL] 25 mg PO DAILY glipiZIDE [Glucotrol] 10 mg PO DAILY Discharge Medication List Dorzolamide 2% [Trusopt 2%] 1 drops LEFT EYE BID 08/06/16 [History] Glimepiride [Amaryl] 4 mg PO BID 08/06/16 [History] Warfarin [Coumadin] 10 mg PO DAILY 08/06/16 [History] Latanoprost [Xalatan 0.005%] 1 drop BOTH EYES HS 08/09/16 [History] metFORMIN HCL [Glucophage] 500 mg PO TID-W/MEALS 08/09/16 [History] prednisoLONE ACETATE 1% OPHTH [Pred Forte 1%] 1 drops LEFT EYE MOTH 08/09/16 [ History] Acetaminophen Tab [Tylenol] 650 mg PO Q6HR PRN tab 08/30/16 [Rx] Amiodarone [Cordarone] 200 mg PO DAILY tab 08/30/16 [Rx] Atorvastatin [Lipitor] 40 mg PO DAILY tab 08/30/16 [Rx] Bisacodyl [Dulcolax] 10 mg RECTAL DAILY PRN suppositor 08/30/16 [Rx] Bismuth Subsalicylate [Bismatrol] 524 mg PO Q4HR PRN bottle 08/30/16 [Rx] Furosemide [Lasix] 40 mg PO DAILY #14 tablet 08/30/16 [Rx] INSULIN LISPRO (humaLOG) [humaLOG (formulary)] 0 unit SQ [id number] vial 08/30/16 [Rx] Ipratropium-Albuterol Nebulize [Duoneb 0.5 mg-3 mg/3 ml Soln] 3 ml INHALATION RT -Q2H PRN neb 08/30/16 [Rx] Magnesium Hydroxide [Milk of Magnesia Concentrate] 2,400 mg PO BID PRN dose 08/11 [Rx] Metoprolol Tartrate [Lopressor] 25 mg PO BID tab 08/30/16 [Rx] Pantoprazole [Protonix] 40 mg PO DAILY tab 08/30/16 [Rx] Aspirin 81 mg PO DAILY tab 08/31/16 [Rx] Follow up Appointment(s)/Referral(s): Angel Tinsley MD [STAFF PHYSICIAN] - 09/13/16 2:45 pm Sage Parks MD [Primary Care Provider] - As Needed (please make appointment for 1 week after discharge from rehab) Ramin Traore MD [STAFF PHYSICIAN] - 09/10/16 11:30 am Sean Nieto MD [STAFF PHYSICIAN] - 10/05/16 10:00 am Ambulatory/Diagnostic Orders: Complete Blood Count w/diff [LAB.AMB] Time Frame: 3 Days, Location: Determined By Patient Comprehensive Metabolic Panel [LAB.AMB] Time Frame: 3 Days, Location: Determined By Patient Prothrombin Time INR [LAB.AMB] Time Frame: 1 Day, Location: Determined By Patient Activity/Diet/Wound Care/Special Instructions: DISCHARGE INSTRUCTIONS: 1. No driving for 4 weeks, or until physician gives their ok. 2. The patient should sleep in their own bed, no medical bed needed. 3. Stairs are not an issue. If the bedroom is upstairs, it is advised that the patient go up at night and down in the morning for the first week. Go slowly, using handrail and take 1 step at a time. 4. HARRIS hose are to be worn for 30 days or until physician discontinues. 5. Heart hugger is to be worn 100% of the time until physician discontinues.( except when showering) 6. No lifting, pushing, or pulling more than 10 pounds for 12 weeks. The physician will advise of any restriction changes. 7. The patient is expected to continue the prescribed walking program. 8. Continue pain control per as needed orders. 9. Continue with incentive spirometry and splinting/heart hugger until otherwise directed by the physician. 10. Must shower daily using liquid antibacterial soap and a separate white washcloth for each individual incision. 11. Routine sternal incision care thereafter no ointments, lotions or powders on the incisions. 12. Please notify surgeon/nurse practitioner for temperature greater than 101F or purulent drainage from incisions SUBACUTE REHAB TO PROVIDE: RN SKILLED HOME CARE SERVICES FOR POST-OP SURGICAL PATIENTS WITH THE FOLLOWING: Coronary Artery Bypass Surgery (CABG), Mitral Valve Replacement/ Repair ( MVR), Aortic Valve Replacement/Repair (AVR) RN TO CONTINUE EDUCATION FROM ``ROAD TO A HEALTH HEART PATIENT EDUCATION MANUAL (GIVEN TO PATIENT IN THE HOSPITAL) MEDICATION RECONCILIATION WITH EDUCATION NEEDED ON FIRST HOME VISIT EMPHASIZE IMPORTANCE OF WEARING BREAST SUPPORT/HEART HUGGER ENCOURAGE USE OF INCENTIVE SPIROMETER 10 X EVERY HOUR WHILE AWAKE ENCOURAGE UTILIZATION OF LOWER EXTREMITY COMPRESSION STOCKINGS/HARRIS HOSE and ELEVATE LEGS ABOVE LEVEL OF HEART WHILE AT REST. ENCOURAGE AMBULATION 3-5x/day INCREASING TOLERATES, WHILE AVOID EXTREMES IN TEMPERATURE REMOVAL OF SUTURES: NURSING SERVICES TO REMOVE SUTURES TWO WEEKS POST SURGICAL DATE [ default ]. If any questions regarding suture removal please call the office at [phone]. LABORATORY: Daily PT and INRs for Coumadin dosing, results called to Dr. Tinsley's office at [phone] for Coumadin dosing. CBC, CMP TO BE DRAWN ON THE THIRD DAY POST DISCHARGE, , 09/02/2016, (RAN STAT) FAX RESULTS TO [phone]. HEALTH PARAMETERS: WEIGHT: NOTIFY MD OF WEIGHT GAIN OF 2 LBS IN 24 HOURS OR 5 LBS IN ONE WEEK HR: NOTIFY MD OF HR <55 BPM OR HR>100 BPM BP: NOTIFY MD IF BP <90/55 OR BP>140/100 O2 SAT: NOTIFY MD IF PO2<93% ON ROOM AIR SEND HEALTH REPORT TO [employer] STATISTICAL PROGRAMMER AND CARDIOVASCULAR SURGEON THE FIRST WEEK OF CARE AND THEN BI-WEEKLY. PLEASE ADDITIONALLY COMMUNICATE ANY ABNORMALS AND NEW FINDINGS TO THE SURGEONS OFFICE. Discharge Disposition: TRANSFER TO SNF/ECF
[2016-08-31] MEDS ORDERED: WARFARIN 10 MG TAB PO ONE (18:00)
[2016-09-01] MEDS ORDERED: ASPIRIN 325 MG TAB PO SCH (09:00)
--- NOTE | 2016-09-01 11:33 | PN ---
DATE OF SERVICE: 08/31/2016 ATTENDING NOTE: This patient was seen and examined by me on 08/31/16. I reviewed the note of my nurse practitioner, Ms. Kapadia and additional finding as below. Patient is status post CABG. Continues to do better, eating well, having bowel movements. Breathing is better. On examination, blood pressure 120/63, pulse ox 96% on room air. LUNGS: Decreased breath sounds. Minimal crackles. CARDIOVASCULAR: First and second sounds are normal. Some edema is present. Labs are noted. Accu-Cheks are noted. ASSESSMENT: 1. Status post coronary artery bypass. 2. Hyperglycemia, improved. 3. Pneumonia is improved. 4. Patient's diarrhea actually has settled down, hence, Clostridium difficile unlikely. Care was discussed with the patient.
[2016-09-01 13:01] LABS: ABG Base Excess -3.2 mmol/L; ABG HCO3 20 mmol/L (21-25); ABG Oxygen Saturation 99.3 % (94-97); ABG PCO2 33 mmHg (35-45); ABG PO2 145 mmHg (83-108); ABG TCO2 21 mmol/L (19-24)
[2016-09-01 13:02] LABS: ABG HCO3 20 mmol/L (21-25); ABG Oxygen Saturation 98.3 % (94-97); ABG PCO2 34 mmHg (35-45); ABG PH 7.38 (7.35-7.45); ABG PO2 110 mmHg (83-108); ABG TCO2 21 mmol/L (19-24)
[2016-09-01 13:03] LABS: ABG Base Excess -5.2 mmol/L; ABG HCO3 20 mmol/L (21-25); ABG Oxygen Saturation 99.1 % (94-97); ABG PCO2 41 mmHg (35-45); ABG PH 7.31 (7.35-7.45); ABG PO2 150 mmHg (83-108); ABG TCO2 22 mmol/L (19-24)
[2016-09-01 13:04] LABS: ABG Base Excess -4.3 mmol/L; ABG HCO3 22 mmol/L (21-25); ABG Oxygen Saturation 99.9 % (94-97); ABG PCO2 48 mmHg (35-45); ABG PH 7.28 (7.35-7.45); ABG PO2 287 mmHg (83-108); ABG TCO2 23 mmol/L (19-24)
[2016-09-01 13:05] LABS: ABG Base Excess -4.9 mmol/L; ABG HCO3 20 mmol/L (21-25); ABG Oxygen Saturation 99.9 % (94-97); ABG PCO2 41 mmHg (35-45); ABG PH 7.32 (7.35-7.45); ABG PO2 332 mmHg (83-108); ABG TCO2 22 mmol/L (19-24)
[2016-09-01 13:06] LABS: ABG Base Excess -3.5 mmol/L; ABG HCO3 22 mmol/L (21-25); ABG Oxygen Saturation 99.9 % (94-97); ABG PCO2 41 mmHg (35-45); ABG PH 7.34 (7.35-7.45); ABG PO2 305 mmHg (83-108); ABG TCO2 23 mmol/L (19-24)
[2016-09-01 13:07] LABS: ABG Base Excess -3.8 mmol/L; ABG HCO3 21 mmol/L (21-25); ABG Oxygen Saturation 97.8 % (94-97); ABG PCO2 38 mmHg (35-45); ABG PH 7.36 (7.35-7.45); ABG PO2 104 mmHg (83-108); ABG TCO2 22 mmol/L (19-24)
--- NOTE | 2016-09-16 21:47 | PN ---
DATE OF SERVICE: 08/26/2016 ADDENDUM/CORRECTION INTERVAL HISTORY: The first line should say: This patient was seen by me yesterday on 08/26/16. This is for the note dictated on 08/27/16 at 1446 and transcribed on 08/27/16 at 1458.
== END 2016-08-31 15:39 | DRG 233 ==
LOC: CATHCVL 10:56 → 6SEL 12:47 → 6ICU 08-13 07:39 → 6SEL 08-25 11:57
PROVIDERS: ADMIT Surgery; ATTEND Surgery
PROC: 4A023N7 Measurement of Cardiac Sampling and Pressure, Left Heart, Percutaneous Approach (ICD-10-PCS; principal; 2016-08-09 11:49)
PROC: B2111ZZ Fluoroscopy of Multiple Coronary Arteries using Low Osmolar Contrast (ICD-10-PCS; principal; 2016-08-09 11:49)
PROC: 021009W Bypass Coronary Artery, One Artery from Aorta with Autologous Venous Tissue, Open Approach (ICD-10-PCS; 2016-08-13)
PROC: 02100Z9 Bypass Coronary Artery, One Artery from Left Internal Mammary, Open Approach (ICD-10-PCS; 2016-08-13)
PROC: 5A1221Z Performance of Cardiac Output, Continuous (ICD-10-PCS; 2016-08-13)
PROC: B246ZZ4 Ultrasonography of Right and Left Heart, Transesophageal (ICD-10-PCS; 2016-08-13)
PROC: 06BQ4ZZ Excision of Left Saphenous Vein, Percutaneous Endoscopic Approach (ICD-10-PCS; 2016-08-13)
DX: I25.119 Atherosclerotic heart disease of native coronary artery with unspecified angina pectoris (principal); A41.9 Sepsis, unspecified organism; J95.821 Acute postprocedural respiratory failure; G62.81 Critical illness polyneuropathy; G72.81 Critical illness myopathy; G93.41 Metabolic encephalopathy; J15.6 Pneumonia due to other Gram-negative bacteria; J95.822 Acute and chronic postprocedural respiratory failure; J90 Pleural effusion, not elsewhere classified; E87.4 Mixed disorder of acid-base balance; E87.0 Hyperosmolality and hypernatremia; D69.3 Immune thrombocytopenic purpura; D62 Acute posthemorrhagic anemia; I82.5Z9 Chronic embolism and thrombosis of unspecified deep veins of unspecified distal lower extremity; I27.82 Chronic pulmonary embolism; N17.9 Acute kidney failure, unspecified; E11.65 Type 2 diabetes mellitus with hyperglycemia; D69.59 Other secondary thrombocytopenia; E16.0 Drug-induced hypoglycemia without coma; E78.5 Hyperlipidemia, unspecified; E87.70 Fluid overload, unspecified; H57.9 Unspecified disorder of eye and adnexa; I11.9 Hypertensive heart disease without heart failure; I25.82 Chronic total occlusion of coronary artery; Z79.01 Long term (current) use of anticoagulants; I34.0 Nonrheumatic mitral (valve) insufficiency; I48.0 Paroxysmal atrial fibrillation; I97.3 Postprocedural hypertension; Y83.8 Other surgical procedures as the cause of abnormal reaction of the patient, or of later complication, without mention of misadventure at the time of the procedure; M15.9 Polyosteoarthritis, unspecified; N40.0 Benign prostatic hyperplasia without lower urinary tract symptoms; T38.3X5A Adverse effect of insulin and oral hypoglycemic [antidiabetic] drugs, initial encounter; Y95 Nosocomial condition; Z79.2 Long term (current) use of antibiotics; Z79.4 Long term (current) use of insulin; Z79.82 Long term (current) use of aspirin; Z79.84 Long term (current) use of oral hypoglycemic drugs; Z79.899 Other long term (current) drug therapy; Z87.891 Personal history of nicotine dependence
CPT/HCPCS: 36569; 36620; 70450; 71010; 71020; 74000; 74230; 76700; 76937; 80048; 80053; 80061; 80074; 81003; 82272; 82330; 82533; 82607; 82747; 82805; 83036; 83605; 83735; 83880; 83883; 83921; 84100; 84132; 84443; 85025; 85520; 85610; 85730; 86022; 86038; 86334; 86431; 86850; 86891; 86900; 86901; 86920; 87070; 87077; 87086; 87186; 87205; 87324; 93005; 93306; 93458; 93880; 93923; 93970; 94002; 94003; 94150; 94640; 94760

== ENCOUNTER 2017-10-29 13:25 | Emergency (ER) | payer MEDICARE, SELFPAY ==
[2017-10-29] MEDS ORDERED: SODIUM CHLORIDE 0.9% 500 ML IV STA (14:31)
[2017-10-29 15:11] LABS: Basophils % (A) 0 %; Eosinophils # (A) 0.2 k/uL (0-0.7); Eosinophils % (A) 4 %; HGB 12.9 gm/dL (13.0-17.5); Lymphocytes # (A) 1.5 k/uL (1.0-4.8); Lymphocytes % (A) 29 %; MCH 31.7 pg (25.0-35.0); MCHC 32.2 g/dL (31.0-37.0); MCV 98.7 fL (80.0-100.0); Macrocytosis Slight; Mean Platelet Volume 9.5; Monocytes # (A) 0.3 k/uL (0-1.0); Monocytes % (A) 7 %; Neutrophils # (A) 3.1 k/uL (1.3-7.7); Neutrophils % (A) 60 %; RBC 4.06 m/uL (4.30-5.90); RDW 15.1 % (11.5-15.5); WBC 5.2 k/uL (3.8-10.6)
--- NOTE | 2017-10-29 15:12 | ED ---
General Adult HPI - General Chief complaint: Weakness Stated complaint: Low blood pressure/weakness Time Seen by Provider: 10/29/17 14:31 Source: patient, RN notes reviewed, old records reviewed Mode of arrival: ambulatory Limitations: no limitations - History of Present Illness Initial comments: 82-year-old male presenting for evaluation of generalized weakness, and fatigue. Patient does report some dyspnea however he has had dyspnea for the past one year status post open heart surgery with triple bypass. Patient states he has been checking his heart rate at home and noticed that his heart rate is in the 40s which is abnormal for him. He does report some diarrhea over the past 12 hours. He's had several episodes. No abdominal pain. No fever. No chest pain. No nausea or vomiting. - Related Data Home Medications Medication Instructions Recorded Confirmed Dorzolamide 2% [Trusopt 2%] 1 drops LEFT EYE TID 08/06/16 10/29/17 Latanoprost [Xalatan 0.005%] 1 drop BOTH EYES HS 08/09/16 10/29/17 metFORMIN HCL [Glucophage] 500 mg PO AC-TID 08/09/16 10/29/17 FLUoxetine HCL 10 mg PO DAILY 10/29/17 10/29/17 Warfarin Sodium [Coumadin] 7.5 mg PO DAILY 10/29/17 10/29/17 Previous Rx's Medication Instructions Recorded Furosemide [Lasix] 40 mg PO DAILY #14 tablet 08/30/16 Metoprolol Tartrate [Lopressor] 25 mg PO BID tab 08/30/16 Allergies Allergy/AdvReac Type Severity Reaction Status Date / Time Penicillins Allergy Rash/Hives Verified 10/29/17 14:30 codeine AdvReac Hallucinati Verified 10/29/17 14:30 ons Review of Systems ROS Statement: Those systems with pertinent positive or pertinent negative responses have been documented in the HPI. ROS Other: All systems not noted in ROS Statement are negative. Past Medical History Past Medical History: Diabetes Mellitus, Deep Vein Thrombosis (DVT), Eye Disorder, Hyperlipidemia, Osteoarthritis (OA), Prostate Disorder, Pulmonary Embolus (PE) Additional Past Medical History / Comment(s): Three-vessel coronary artery disease and details discussed above History of Any Multi-Drug Resistant Organisms: None Reported Past Surgical History: Coronary Bypass/CABG Additional Past Surgical History / Comment(s): corneal transplant Past Anesthesia/Blood Transfusion Reactions: No Reported Reaction Past Psychological History: No Psychological Hx Reported Smoking Status: Former smoker Past Alcohol Use History: None Reported Past Drug Use History: None Reported - Past Family History Mother Family Medical History: No Reported History General Exam Limitations: no limitations General appearance: alert, in no apparent distress Head exam: Present: atraumatic, normocephalic Eye exam: Present: normal appearance, PERRL ENT exam: Present: normal exam Neck exam: Present: normal inspection. Absent: tenderness, meningismus Respiratory exam: Present: normal lung sounds bilaterally. Absent: respiratory distress, wheezes, rales, rhonchi Cardiovascular Exam: Present: normal rhythm, bradycardia GI/Abdominal exam: Present: soft. Absent: distended, tenderness, guarding Extremities exam: Present: normal inspection, normal capillary refill. Absent: pedal edema, calf tenderness Neurological exam: Present: alert, oriented X3, CN II-XII intact. Absent: motor sensory deficit Psychiatric exam: Present: normal affect, normal mood Skin exam: Present: warm, dry, intact. 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 Medical Decision Making - Medical Decision Making 82-year-old male presenting with fatigue. No chest pain. No worsening dyspnea , patient does have baseline dyspnea which is unchanged. EKG shows sinus bradycardia with a rate of 51. Chest x-ray does show small left-sided pleural effusion, no focal pneumonia, no central venous congestion. Laboratory studies reveal normal white blood cell count, hemoglobin 12.9, INR is therapeutic, troponin is negative, BNP mildly elevated at 1200. On reevaluation patient's vital signs remained stable, he does remain bradycardic, blood pressure is stable. He is informed of all testing results. He is offered observation for telemetry and cardiology consultation. He declines. He prefers discharge. He will return with worsening or changing symptoms. Weakness and fatigue more likely related to diarrhea rather than primary cardiac issue. He will follow- up with his primary care physician. He promises to return with any worsening or changing symptoms. - Lab Data Result diagrams: 10/29/17 14:46 10/29/17 14:46 Lab Results 10/29/17 10/29/17 10/29/17 Range/Units 14:46 14:46 14:46 WBC 5.2 (3.8-10.6) k/uL RBC 4.06 L (4.30-5.90) m/uL Hgb 12.9 L (13.0-17.5) gm/dL Hct 40.0 (39.0-53.0) % MCV 98.7 (80.0-100.0) fL MCH 31.7 (25.0-35.0) pg MCHC 32.2 (31.0-37.0) g/dL RDW 15.1 (11.5-15.5) % Plt Count 70 L (150-450) k/uL Neutrophils % 60 % Lymphocytes % 29 % Monocytes % 7 % Eosinophils % 4 % Basophils % 0 % Neutrophils # 3.1 (1.3-7.7) k/uL Lymphocytes # 1.5 (1.0-4.8) k/uL Monocytes # 0.3 (0-1.0) k/uL Eosinophils # 0.2 (0-0.7) k/uL Basophils # 0.0 (0-0.2) k/uL Macrocytosis Slight PT (9.0-12.0) sec INR (<1.2) APTT (22.0-30.0) sec Sodium 141 (137-145) mmol/L Potassium 4.6 (3.5-5.1) mmol/L Chloride 111 H (98-107) mmol/L Carbon Dioxide 24 (22-30) mmol/L Anion Gap 6 mmol/L BUN 23 H (9-20) mg/dL Creatinine 1.10 (0.66-1.25) mg/dL Est GFR (CKD-EPI)AfAm 72 (>60 ml/min/1.73 sqM) Est GFR (CKD-EPI)NonAf 62 (>60 ml/min/1.73 sqM) Glucose 109 H (74-99) mg/dL Calcium 9.6 (8.4-10.2) mg/dL Magnesium 1.9 (1.6-2.3) mg/dL Total Bilirubin 1.8 H (0.2-1.3) mg/dL AST 36 (17-59) U/L ALT 43 (21-72) U/L Alkaline Phosphatase 81 (38-126) U/L Total Creatine Kinase 63 (55-170) U/L CK-MB (CK-2) 0.7 (0.0-2.4) ng/mL CK-MB (CK-2) Rel Index 1.1 Troponin I <0.012 (0.000-0.034) ng/mL NT-Pro-B Natriuret Pep pg/mL Total Protein 6.6 (6.3-8.2) g/dL Albumin 3.7 (3.5-5.0) g/dL 10/29/17 10/29/17 Range/Units 14:46 14:46 WBC (3.8-10.6) k/uL RBC (4.30-5.90) m/uL Hgb (13.0-17.5) gm/dL Hct (39.0-53.0) % MCV (80.0-100.0) fL MCH (25.0-35.0) pg MCHC (31.0-37.0) g/dL RDW (11.5-15.5) % Plt Count (150-450) k/uL Neutrophils % % Lymphocytes % % Monocytes % % Eosinophils % % Basophils % % Neutrophils # (1.3-7.7) k/uL Lymphocytes # (1.0-4.8) k/uL Monocytes # (0-1.0) k/uL Eosinophils # (0-0.7) k/uL Basophils # (0-0.2) k/uL Macrocytosis PT 23.4 H (9.0-12.0) sec INR 2.6 H (<1.2) APTT 29.6 (22.0-30.0) sec Sodium (137-145) mmol/L Potassium (3.5-5.1) mmol/L Chloride (98-107) mmol/L Carbon Dioxide (22-30) mmol/L Anion Gap mmol/L BUN (9-20) mg/dL Creatinine (0.66-1.25) mg/dL Est GFR (CKD-EPI)AfAm (>60 ml/min/1.73 sqM) Est GFR (CKD-EPI)NonAf (>60 ml/min/1.73 sqM) Glucose (74-99) mg/dL Calcium (8.4-10.2) mg/dL Magnesium (1.6-2.3) mg/dL Total Bilirubin (0.2-1.3) mg/dL AST (17-59) U/L ALT (21-72) U/L Alkaline Phosphatase (38-126) U/L Total Creatine Kinase (55-170) U/L CK-MB (CK-2) (0.0-2.4) ng/mL CK-MB (CK-2) Rel Index Troponin I (0.000-0.034) ng/mL NT-Pro-B Natriuret Pep 1200 pg/mL Total Protein (6.3-8.2) g/dL Albumin (3.5-5.0) g/dL Disposition Clinical Impression: Diarrhea, Generalized weakness, Bradycardia Disposition: HOME SELF-CARE Condition: Fair Instructions: Bradycardia (ED), Weakness (ED), Acute Diarrhea (ED) Is patient prescribed a controlled substance at d/c from ED?: No Referrals: Sage Parks MD [Primary Care Provider] - 1-2 days Time of Disposition: 16:42
[2017-10-29 15:19] LABS: INR 2.6 (<1.2); Prothrombin Time 23.4 sec (9.0-12.0)
[2017-10-29 15:20] LABS: Partial Thromboplastin Time 29.6 sec (22.0-30.0)
[2017-10-29 15:23] LABS: Platelet Count 70 k/uL (150-450)
[2017-10-29 15:25] LABS: Creatine Kinase 63 U/L (55-170)
[2017-10-29 15:27] LABS: Albumin 3.7 g/dL (3.5-5.0); Calcium 9.6 mg/dL (8.4-10.2); Magnesium 1.9 mg/dL (1.6-2.3); Potassium 4.6 mmol/L (3.5-5.1); Total Bilirubin 1.8 mg/dL (0.2-1.3); Total Protein 6.6 g/dL (6.3-8.2)
[2017-10-29 15:38] LABS: Creatine Kinase MB 0.7 ng/mL (0.0-2.4); Troponin I <0.012 ng/mL (0.000-0.034)
[2017-10-29 16:19] VITALS: RESP 18
--- NOTE | 2017-10-29 16:27 | XR ---
EXAMINATION TYPE: XR chest 2V DATE OF EXAM: 10/29/2017 COMPARISON: 08/26/2016 INDICATION: Dysrhythmia TECHNIQUE: Frontal and lateral views of the chest are obtained. FINDINGS: The heart size is normal. The pulmonary vasculature is normal. There is a small to moderate left pleural effusion.. Sternotomy wires are present. IMPRESSION: 1. Small to moderate left pleural effusion.
[2017-10-29 17:25] VITALS: BP 135/75; PULSE 54; TEMP 97.7
== END 2017-10-29 17:22 | disposition home or self-care (01) ==
LOC: EC 13:25
DX: R53.1 Weakness (principal); R19.7 Diarrhea, unspecified; R00.1 Bradycardia, unspecified; J90 Pleural effusion, not elsewhere classified; E11.9 Type 2 diabetes mellitus without complications; I25.10 Atherosclerotic heart disease of native coronary artery without angina pectoris; Z87.891 Personal history of nicotine dependence; Z86.711 Personal history of pulmonary embolism; Z86.718 Personal history of other venous thrombosis and embolism; Z95.1 Presence of aortocoronary bypass graft; Z94.7 Corneal transplant status; Z79.01 Long term (current) use of anticoagulants; Z79.84 Long term (current) use of oral hypoglycemic drugs; Z79.899 Other long term (current) drug therapy; Z88.0 Allergy status to penicillin; Z88.5 Allergy status to narcotic agent
CPT/HCPCS: 36415; 71046; 80053; 82550; 82553; 83735; 83880; 84484; 85025; 85610; 85730; 93005; 99285

== ENCOUNTER 2018-03-16 13:02 | Inpatient (IN) | payer MEDICARE ==
--- NOTE | 2018-03-16 13:50 | ED ---
SOB HPI - General Chief Complaint: Shortness of Breath Stated Complaint: Fluid in Lt lung Time Seen by Provider: 03/16/18 13:27 Source: patient, family Mode of arrival: wheelchair Limitations: physical limitation - History of Present Illness Initial Comments: A 82-year-old male past medical history of coronary artery disease status post 5 vessel bypass in 2016, congestive heart failure, HTN, DMII, HLD and previous PE, nonsmoker presenting today for chief complaint of syncopal primary care provider for left pleural fusion. Patient states that he was seeing his primary care provider for follow-up for a prostate ultrasound. Upon review of systems he admits to shortness of breath for months, as well as sputum production. Patient states the sputum production has been chronic for the past 2 years. Patient denies any differences in characteristic, hemoptysis fever, chills or night sweats. Patient states a chest x-ray was obtained at that time revealing a left-sided pleural effusion and patient was sent to the emergency department for evaluation. Patient denies any recent changes in shortness of breath or orthopnea. Patient does admit to dyspnea on exertion does not change in characteristic for the past 3-4 months. Patient states he takes daily weights, ranging from 234-238 without clothes, states weight [address] Parks's office this morning. Pt states he is compliant with his medications. Pt last INR 2 weeks ago. Pt denies back pain, chest pain, wheezing , epigastric abdominal pain, heartburn or indigestion or belching, unilateral leg swelling, recent travel, history of cancer, recent surgery. Upon arrival pt is well appearing, no signs concerning for toxicity or distress. Pt was ambulating to the rest room upon entering room for evaluation. Pleasant. VS within acceptable limits. Pt HR 54, pt states baseline that he takes daily at home 40- low 50s. - Related Data Home Medications Medication Instructions Recorded Confirmed Dorzolamide 2% [Trusopt 2%] 1 drops LEFT EYE TID 08/06/16 03/16/18 Latanoprost [Xalatan 0.005%] 1 drop BOTH EYES HS 08/09/16 03/16/18 metFORMIN HCL [Glucophage] 500 mg PO AC-TID 08/09/16 03/16/18 FLUoxetine HCL 10 mg PO DAILY 10/29/17 03/16/18 Warfarin Sodium [Coumadin] 7.5 mg PO DAILY 10/29/17 03/16/18 Metoprolol Tartrate [Lopressor] 50 mg PO BID 03/16/18 03/16/18 Mupirocin 2% Oint [Bactroban 2% 1 applic TOPICAL TID 03/16/18 03/16/18 Oint] Nystatin-Triamcinolone Oint 1 applic TOPICAL BID 03/16/18 03/16/18 [Mycolog 100,000-0.1 Unit/gm-% Oint] Pravastatin Sodium [Pravachol] 40 mg PO DAILY 03/16/18 03/16/18 Tamsulosin [Flomax] 0.4 mg PO DAILY 03/16/18 03/16/18 Previous Rx's Medication Instructions Recorded Furosemide [Lasix] 40 mg PO DAILY #14 tablet 08/30/16 Allergies Allergy/AdvReac Type Severity Reaction Status Date / Time Penicillins Allergy Rash/Hives Verified 03/16/18 14:55 codeine AdvReac Hallucinati Verified 03/16/18 14:55 ons Review of Systems ROS Statement: Those systems with pertinent positive or pertinent negative responses have been documented in the HPI. ROS Other: All systems not noted in ROS Statement are negative. Constitutional: Denies: fever, chills, night sweats Eyes: Denies: eye pain ENT: Denies: ear pain, throat pain Respiratory: Denies: cough, dyspnea, wheezes, hemoptysis, stridor Cardiovascular: Reports: dyspnea on exertion, edema. Denies: chest pain, palpitations, orthopnea Endocrine: Denies: fatigue Gastrointestinal: Denies: abdominal pain, nausea, vomiting, diarrhea, constipation, hematemesis Genitourinary: Denies: urgency, dysuria, frequency, hematuria Musculoskeletal: Denies: back pain Skin: Denies: rash Neurological: Denies: headache, weakness, numbness, paresthesias, confusion, abnormal gait Past Medical History Past Medical History: Diabetes Mellitus, Deep Vein Thrombosis (DVT), Eye Disorder, Hyperlipidemia, Osteoarthritis (OA), Prostate Disorder, Pulmonary Embolus (PE) Additional Past Medical History / Comment(s): Three-vessel coronary artery disease and details discussed above History of Any Multi-Drug Resistant Organisms: None Reported Past Surgical History: Coronary Bypass/CABG Additional Past Surgical History / Comment(s): corneal transplant Past Anesthesia/Blood Transfusion Reactions: No Reported Reaction Past Psychological History: No Psychological Hx Reported Smoking Status: Former smoker Past Alcohol Use History: None Reported Past Drug Use History: None Reported - Past Family History Mother Family Medical History: No Reported History Brother(s) Family Medical History: Cancer Additional Family Medical History / Comment(s): bone cancer Father Family Medical History: Cancer Additional Family Medical History / Comment(s): skin/bone cancer General Exam - General Exam Comments Initial Comments: General: The patient is awake and alert, in no distress, and does not appear acutely ill. Eye: +3 mm pupils are equal, round and reactive to light, extra-ocular movements are intact. No nystagmus. There is normal conjunctiva bilaterally. No signs of icterus. Ears, nose, mouth and throat: There are moist mucous membranes and no oral lesions. Neck: The neck is supple, there is no tenderness or JVD. Cardiovascular: There is a regular rate and rhythm. No murmur, rub or gallop is appreciated. Respiratory: No signs of respiratory distress, no retractions cyanosis or abdominal breathing. Equal expansion. Respirations are non-labored, breath sounds are diminished in the left lung [place]. No wheezes, stridor, rales, or rhonchi. Gastrointestinal: Soft, non-distended, non-tender abdomen without masses or organomegaly noted. There is no rebound or guarding present. Bowel sounds are unremarkable. Musculoskeletal: Normal ROM, no tenderness. Strength 5/5. Sensation intact. DP and radial pulses equal bilaterally 2+. Neurological: A&O x 3. CN II-XII intact, There are no obvious motor or sensory deficits. Coordination appears grossly intact. Speech is normal. Skin: Skin is warm and dry and no rashes or lesions are noted. Psychiatric: Cooperative, appropriate mood & affect, normal judgment. Limitations: physical limitation Course Vital Signs 03/16/18 03/16/18 03/16/18 13:18 16:00 17:20 Temperature 97.6 F Pulse Rate 54 L 50 L 56 L Respiratory 24 18 20 Rate Blood Pressure 105/56 117/57 121/83 O2 Sat by Pulse 96 97 100 Oximetry Medical Decision Making - Medical Decision Making Well appearing 82yo male sent from PCP for pleural effusion. Laboratory studies as noted above. HgB, WBC, Plt appear to be around pt baseline upon chart review. INR 2.2 pt on coumadin. Trop (-), pt denies chest pain. Remainder unremarkable. Pt VS stable. CXR revealed left sided effusion, there are no overt signs of infection or CHF exacerbation. Pt states that he has his heart recently evaluated and was told everything was "stable". BNP elevated however given sxs ongoing for months, pt weights stable, decreased lung sound left lung bases however remainder of lung sounds clear. There is mild pitting edema of the LE. I have concern for neoplastic cause of pleural effusion. Pt took lasix this morning. At this time I feel pt should be admitted for further evaluation of pleural effusion and evaluation by without it. Patient is agreeable plan. I discussed the case in detail Dr. Sanchez, who spoke with admitting provider, Dr Long. Dr. Sanchez agreed with impression and plan. Pt admitted and transferred to floor in stable condition. VS remain stable. No further orders from admitting provider at this time, admitting provider will continue patient care. - Lab Data Result diagrams: 03/16/18 14:01 03/16/18 14:01 Lab Results 03/16/18 03/16/18 03/16/18 Range/Units 14:01 14:01 14:01 WBC 3.6 L (3.8-10.6) k/uL RBC 3.75 L (4.30-5.90) m/uL Hgb 11.9 L (13.0-17.5) gm/dL Hct 37.0 L (39.0-53.0) % MCV 98.5 (80.0-100.0) fL MCH 31.6 (25.0-35.0) pg MCHC 32.1 (31.0-37.0) g/dL RDW 15.0 (11.5-15.5) % Plt Count 69 L (150-450) k/uL Neutrophils % 63 % Lymphocytes % 27 % Monocytes % 7 % Eosinophils % 2 % Basophils % 0 % Neutrophils # 2.2 (1.3-7.7) k/uL Lymphocytes # 1.0 (1.0-4.8) k/uL Monocytes # 0.2 (0-1.0) k/uL Eosinophils # 0.1 (0-0.7) k/uL Basophils # 0.0 (0-0.2) k/uL Manual Slide Review Performed RBC Morphology Normal PT (9.0-12.0) sec INR (<1.2) APTT (22.0-30.0) sec Sodium 140 (137-145) mmol/L Potassium 5.1 (3.5-5.1) mmol/L Chloride 108 H (98-107) mmol/L Carbon Dioxide 27 (22-30) mmol/L Anion Gap 5 mmol/L BUN 31 H (9-20) mg/dL Creatinine 1.11 (0.66-1.25) mg/dL Est GFR (CKD-EPI)AfAm 71 (>60 ml/min/1.73 sqM) Est GFR (CKD-EPI)NonAf 61 (>60 ml/min/1.73 sqM) Glucose 177 H (74-99) mg/dL Calcium 9.1 (8.4-10.2) mg/dL Total Bilirubin 1.7 H (0.2-1.3) mg/dL AST 39 (17-59) U/L ALT 31 (21-72) U/L Alkaline Phosphatase 96 (38-126) U/L Total Creatine Kinase 48 L (55-170) U/L CK-MB (CK-2) 0.6 (0.0-2.4) ng/mL CK-MB (CK-2) Rel Index 1.3 Troponin I <0.012 (0.000-0.034) ng/mL NT-Pro-B Natriuret Pep pg/mL Total Protein 6.6 (6.3-8.2) g/dL Albumin 3.4 L (3.5-5.0) g/dL 03/16/18 03/16/18 Range/Units 14:01 14:01 WBC (3.8-10.6) k/uL RBC (4.30-5.90) m/uL Hgb (13.0-17.5) gm/dL Hct (39.0-53.0) % MCV (80.0-100.0) fL MCH (25.0-35.0) pg MCHC (31.0-37.0) g/dL RDW (11.5-15.5) % Plt Count (150-450) k/uL Neutrophils % % Lymphocytes % % Monocytes % % Eosinophils % % Basophils % % Neutrophils # (1.3-7.7) k/uL Lymphocytes # (1.0-4.8) k/uL Monocytes # (0-1.0) k/uL Eosinophils # (0-0.7) k/uL Basophils # (0-0.2) k/uL Manual Slide Review RBC Morphology PT 21.8 H (9.0-12.0) sec INR 2.2 H (<1.2) APTT 31.4 H (22.0-30.0) sec Sodium (137-145) mmol/L Potassium (3.5-5.1) mmol/L Chloride (98-107) mmol/L Carbon Dioxide (22-30) mmol/L Anion Gap mmol/L BUN (9-20) mg/dL Creatinine (0.66-1.25) mg/dL Est GFR (CKD-EPI)AfAm (>60 ml/min/1.73 sqM) Est GFR (CKD-EPI)NonAf (>60 ml/min/1.73 sqM) Glucose (74-99) mg/dL Calcium (8.4-10.2) mg/dL Total Bilirubin (0.2-1.3) mg/dL AST (17-59) U/L ALT (21-72) U/L Alkaline Phosphatase (38-126) U/L Total Creatine Kinase (55-170) U/L CK-MB (CK-2) (0.0-2.4) ng/mL CK-MB (CK-2) Rel Index Troponin I (0.000-0.034) ng/mL NT-Pro-B Natriuret Pep 738 pg/mL Total Protein (6.3-8.2) g/dL Albumin (3.5-5.0) g/dL Disposition Clinical Impression: Pleural effusion on left Disposition: [facility] Time of Disposition: 19:24 Decision to Admit Reason: Admit from EC Decision Date: 03/16/18 Decision Time: 16:00
[2018-03-16 14:28] LABS: Basophils % (A) 0 %; Eosinophils # (A) 0.1 k/uL (0-0.7); Eosinophils % (A) 2 %; HGB 11.9 gm/dL (13.0-17.5); Lymphocytes % (A) 27 %; MCH 31.6 pg (25.0-35.0); MCHC 32.1 g/dL (31.0-37.0); MCV 98.5 fL (80.0-100.0); Mean Platelet Volume 10.3; Monocytes # (A) 0.2 k/uL (0-1.0); Monocytes % (A) 7 %; Neutrophils # (A) 2.2 k/uL (1.3-7.7); Neutrophils % (A) 63 %; RBC 3.75 m/uL (4.30-5.90); WBC 3.6 k/uL (3.8-10.6)
[2018-03-16 14:40] LABS: Albumin 3.4 g/dL (3.5-5.0); Calcium 9.1 mg/dL (8.4-10.2); Potassium 5.1 mmol/L (3.5-5.1); Total Bilirubin 1.7 mg/dL (0.2-1.3); Total Protein 6.6 g/dL (6.3-8.2)
[2018-03-16 14:46] LABS: Platelet Count 69 k/uL (150-450)
[2018-03-16 14:49] LABS: Creatine Kinase 48 U/L (55-170)
[2018-03-16 14:52] LABS: INR 2.2 (<1.2); Partial Thromboplastin Time 31.4 sec (22.0-30.0); Prothrombin Time 21.8 sec (9.0-12.0)
[2018-03-16 14:59] LABS: Creatine Kinase MB 0.6 ng/mL (0.0-2.4)
[2018-03-16 15:02] LABS: Troponin I <0.012 ng/mL (0.000-0.034)
--- NOTE | 2018-03-16 15:39 | XR ---
EXAMINATION TYPE: XR chest 2V DATE OF EXAM: 03/16/2018 COMPARISON: Prior chest x-ray October 29, 2017. HISTORY: Difficulty in breathing. Suspected fluid in left lung per primary care doctor. TECHNIQUE: Frontal and lateral views of the chest are obtained. FINDINGS: There is persistent small to moderate-sized left pleural effusion and associated left basi lar atelectasis and/or infiltrate. Effusion felt fairly stable in size from prior study. Silhouettin g of left heart border and hemidiaphragm is redemonstrated. No mediastinal shift is seen. Right lung remains clear. The cardiac silhouette size is stable and enlarged. Overlying sternal wires are redem onstrated. The osseous structures are intact. IMPRESSION: Persistent cardiomegaly with small to moderate-sized left pleural effusion and associated left basilar atelectasis and/or infiltrate.
[2018-03-16] MEDS ORDERED: NALOXONE 0.4 MG/ML 1 ML VIAL IV PRN (15:59)
[2018-03-16] MEDS: SODIUM CHLORIDE 0.9% 1,000 ML IV SCH (16:44)
[2018-03-17 04:34] LABS: Appearance,Urine Clear (Clear); Bilirubin,Urine Negative (Negative); Blood,Urine Negative (Negative); Color,Urine Yellow; Glucose,Urine (UA) Negative (Negative); Ketones,Urine Negative (Negative); Leukocyte Esterase,Urine Negative (Negative); Nitrite,Urine Negative (Negative); Protein,Urine Trace (Negative); Urobilinogen,Urine <2.0 mg/dL (<2.0)
[2018-03-17 07:09] LABS: Glucose,Whole Blood 130 mg/dL (75-99)
[2018-03-17] MEDS ORDERED: FUROSEMIDE 40 MG TAB PO SCH (11:30)
[2018-03-17] MEDS ORDERED: PRAVASTATIN SODIUM 40 MG TAB PO SCH (11:30)
[2018-03-17] MEDS ORDERED: METOPROLOL TARTRATE 50 MG TAB PO SCH (11:30)
[2018-03-17] MEDS ORDERED: TAMSULOSIN 0.4 MG CAP.ER.24H PO SCH (11:30)
[2018-03-17] MEDS ORDERED: WARFARIN 7.5 MG TAB PO SCH (11:30)
[2018-03-17] MEDS ORDERED: NYSTAT-TRIAMCIN 100,000-0.1 UNIT/GM-% OINT 30 GM TUBE TOPICAL SCH (11:30)
[2018-03-17] MEDS ORDERED: DORZOLAMIDE HCL 2% DROPS 10 ML BTL LEFT EYE SCH (11:30)
[2018-03-17] MEDS ORDERED: metFORMIN 500 MG TAB PO SCH (12:30)
[2018-03-17 13:58] LABS: INR 1.9 (<1.2); Prothrombin Time 18.6 sec (9.0-12.0)
--- NOTE | 2018-03-17 14:35 | US ---
EXAMINATION TYPE: US chest DATE OF EXAM: 03/17/2018 COMPARISON: NONE CLINICAL HISTORY: left chest pleural effusion. TECHNIQUE: Targeted ultrasound of the posterior lower left hemithorax EXAM MEASUREMENTS: Left Pleural Effusion pocket size: 10.5 cm Left skin surface to fluid distance: 4.2 cm Left side marked for possible thoracentesis outside the dept. Pulmonologists are able to review the images in the patient?s EMR. IMPRESSIONS: Moderate left pleural effusion with left basilar atelectasis.
[2018-03-17] MEDS: MUPIROCIN 2% OINT 22 GM TUBE TOPICAL SCH ×3 (15:06→20:32)
[2018-03-17] MEDS ORDERED: NON-FORMULARY DRUG (Aspirin Ec 81 MG) PO SCH (15:15)
[2018-03-17] MEDS: DORZOLAMIDE HCL 2% DROPS 10 ML BTL LEFT EYE SCH ×2 (15:27→20:35)
[2018-03-17] MEDS: FUROSEMIDE 40 MG TAB PO SCH (15:27)
[2018-03-17] MEDS: TAMSULOSIN 0.4 MG CAP.ER.24H PO SCH (15:28)
[2018-03-17] MEDS: PRAVASTATIN SODIUM 40 MG TAB PO SCH (15:28)
[2018-03-17] MEDS: SODIUM CHLORIDE 0.9% 1,000 ML IV SCH (15:39)
[2018-03-17] MEDS: FLUoxetine HCL 10 MG CAP PO SCH (15:39)
[2018-03-17] MEDS: metFORMIN 500 MG TAB PO SCH (17:48)
--- NOTE | 2018-03-17 18:17 | CONS ---
CONSULTATION This is a consultation pulmonary critical care consultation. DATE OF SERVICE: 03/17/2018. This is an 82-year-old male presents to the emergency department on March 16 for complaints of shortness of breath. The patient has a history of coronary artery disease, status post 5 vessel bypass in 2016, congestive heart failure, hypertension, diabetes, and previous pulmonary embolism. The patient comes in with left-sided pleural effusion. It was discovered by the primary care physician in the office with a chest x-ray. Anyway, the patient does admit for shortness of breath. It has been going on for a couple of weeks and maybe even longer than that. In addition, the patient does have a bit of a cough and some sputum production. He denied any coughing up blood. There was no fever, night sweats, chills, or anything else to suggest infection. The patient was evaluated by his primary and sent to the ER who saw the patient and admitted the patient for left-sided effusion. The patient does have shortness of breath and also a bit of a cough as mentioned above. The shortness of breath is primarily with exertion, less so at rest. The patient remains on chronic anticoagulation with Coumadin. We are asked to see the patient for possible thoracentesis. We had ultrasound jorge the left chest. It did show about a 10 cm pocket of fluid. Once his blood thickens up, we will attempt a thoracentesis. HOME MEDICATIONS: Includes eyedrops, Glucophage, Prozac, warfarin, Lopressor, Bactroban ointment, nystatin, triamcinolone ointment, Pravachol, and Flomax. He is also on Lasix at one time. ALLERGIES: PENICILLIN AND CODEINE. PAST MEDICAL HISTORY: Is positive for diabetes mellitus, deep venous thrombosis, hyperlipidemia, DJD, pulmonary embolism, CAD with previous 5 vessel bypass grafting in 2016. In addition, the patient has had corneal transplants. SOCIAL HISTORY: Positive for previous tobacco use. FAMILY HISTORY: Positive for bone cancer. REVIEW OF SYSTEMS: CONSTITUTIONAL: Negative. NEUROLOGICAL: Negative. HEENT negative. CARDIOVASCULAR: Negative. PULMONARY: Shortness of breath, cough, minimal sputum production. GI/ negative. RHEUMATOLOGIC, HEMATOLOGIC: Negative. ENDOCRINOLOGIC, DERMATOLOGIC all negative. PHYSICAL EXAMINATION: Current vital signs include a temperature 96.8, heart rate 67, respiratory 20, blood pressure 129/70, mean 89, room air saturation 96%. The patient appears in no acute distress. There is no use of accessory muscles. No outward signs of respiratory difficulty. No audible wheezing. HEENT examination is grossly unremarkable. No supplemental oxygen noted. Mucous membranes are moist. NECK: Supple. Full range of motion. No adenopathy or thyromegaly. Neck veins are flat. Cardiovascular examination reveals regular rhythm and rate. S1, S2 normal. No S3, S4, or murmur. LUNGS: Diminished breath sounds at the left base. There is some dullness at the left base. A few scattered rhonchi are noted on the left side. No wheezes or crackles. ABDOMEN: Soft. Bowel sounds are heard. There is no masses or tenderness. Extremities are intact. No cyanosis, clubbing, or edema. Skin without rash. Neurologic examination is brief but nonfocal. LAB DATA: Reviewed. The patient's white count 3.6, hemoglobin 11.9, hematocrit 37.0, platelet count 69,000. PT/INR was 18.6 and 1.9. Sodium 140, potassium 5.1, chloride 108, CO2 27, BUN and creatinine were 31 and 1.11. Total bilirubin room 1.7. CK 48. Troponin is negative. N terminal proBNP is 738. Albumin 3.4. Urine is essentially negative. X-RAY: Chest x-ray shows cardiomegaly with small to moderate-sized left pleural effusion and left basilar atelectasis/infiltrate. Ultrasound showed a about a 10 cm pocket on the left side. Medications are reviewed. He is basically just on Prozac, Bactroban ointment, nystatin ointment, Narcan, basic IV and Kenalog cream. ASSESSMENT: 1. Shortness of breath, secondary to left-sided pleural effusion, of unclear etiology. 2. History of diabetes mellitus. 3. Deep venous thrombosis. 4. Hyperlipidemia. 5. Osteoarthritis. 6. History of pulmonary embolism. 7. Status post 5 vessel bypass grafting, 2016. 8. History of congestive heart failure. 9. History of hypertension. PLAN: The patient had an ultrasound done. We will hold the Coumadin. Once he is down to a safe level on terms of his INR, we will attempt left-sided thoracentesis. Additional recommendations and suggestions are forthcoming. Prognosis is guarded. The etiology of the left-sided pleural effusion is not known. Could relate to infection or malignancy. CHF is also another possibility. We will continue to follow. We did explain to the patient of what thoracentesis involved. He understands that he can not have it done until his blood is a bit thicker. We will repeat a PT/INR in the morning. Additional recommendations and suggestions are forthcoming. MMODL / IJN: [id number] /
[2018-03-17] MEDS ORDERED: PHYTONADIONE ORAL 5 MG/5 ML ORAL.SYRG PO STA (19:39)
--- NOTE | 2018-03-17 19:48 | P.HPIM ---
History of Present Illness H&P Date: 03/17/18 Chief Complaint: Short of breath History of presenting complaint: This is a pleasant 81-year-old patient of Dr. Sage Parks. Chronic stable medical conditions include diabetes, or stress gastritis, BPH. Patient had a coronary bypass in 2017. Patient also had been in atrial fibrillation. Patient has been on Coumadin. It has been documented that patient had DVT but patient doesn't denies the same. Patient now presents with what he describes a progressive shortness of breath since he's had his coronary bypass. It is progressing got much worse. He gets short of breath when he walks across the room. He has been having increasing lower extremity edema. In bed he uses one pillow off and I will set up on a chair. He has a slight cough with clear sputum. Denies any fever or chills. Appetite is maintained. Presents to the ER. Patient's found a significant left pleural effusion. For which Dr. Batista was consulted. Patient's EF was 55 -60% in August of last year. Review of systems: GEN.: Diet EYES: None HEENT: None NECK: None RESPIRATORY: As above CARDIOVASCULAR: As above GASTROINTESTINAL: None GENITOURINARY: None MUSCULOSKELETAL: None LYMPHATICS: None HEMATOLOGICAL: None PSYCHIATRY: None NEUROLOGICAL: None Past medical history: Diabetes, DVT, hyperlipidemia, osteoarthritis, BPH, coronary bypass in 2017, atrial fibrillation Social history: Lives alone. Retired. Does not smoke or drink alcohol. Family history: Bone cancer Investigation: Chest x-ray film personally reviewed by me shows some cardiomegaly, large left pleural effusion some venous prominence EKG-tracing personally reviewed by me shows sinus rhythm White count 3.6 hemoglobin 11.9, platelets 69, INR 2.2, potassium 5.1, BUN 31, creatinine 1.11 Assessment: -Large left pleural effusion with some venous prominence, this has been coming on chronically, differential includes congestive heart failure exacerbation from diastolic dysfunction. It may be noted that patient's proBNP is only 738 -Coronary artery disease with cardiac bypass in 2017 -Chronic congestive heart failure from diastolic dysfunction EF 55-60% in 2017 -Primary Vic throat is non-BPH -Hyperlipidemia -Paroxysmal atrial fibrillation, currently in sinus rhythm -Chronic Coumadin monitoring -Questionable diagnosis of prior history of DVT. Plan: Patient be started on IV Lasix. Follow I's closely. Seen by Dr. Aviles. Patient's Coumadin has been held. Will give a small dose of vitamin K. 1.25 mg. Repeat INR in the morning. 2-D echocardiogram was ordered this morning. Care was discussed with patient. Patient is very keen to take his on home medications. Pharmacy was involved in this. Questions were answered. Past Medical History Past Medical History: Diabetes Mellitus, Deep Vein Thrombosis (DVT), Eye Disorder, Hyperlipidemia, Osteoarthritis (OA), Prostate Disorder, Pulmonary Embolus (PE) Additional Past Medical History / Comment(s): Three-vessel coronary artery disease and details discussed above History of Any Multi-Drug Resistant Organisms: None Reported Past Surgical History: Coronary Bypass/CABG Additional Past Surgical History / Comment(s): corneal transplant Past Anesthesia/Blood Transfusion Reactions: No Reported Reaction Past Psychological History: No Psychological Hx Reported Smoking Status: Former smoker Past Alcohol Use History: None Reported Past Drug Use History: None Reported - Past Family History Mother Family Medical History: No Reported History Brother(s) Family Medical History: Cancer Additional Family Medical History / Comment(s): bone cancer Father Family Medical History: Cancer Additional Family Medical History / Comment(s): skin/bone cancer Medications and Allergies Home Medications Medication Instructions Recorded Confirmed Type Dorzolamide 2% [Trusopt 2%] 1 drops LEFT EYE TID 08/06/16 03/17/18 History Latanoprost [Xalatan 0.005%] 1 drop BOTH EYES HS 08/09/16 03/17/18 History metFORMIN HCL [Glucophage] 500 mg PO AC-TID 08/09/16 03/17/18 History Furosemide [Lasix] 40 mg PO DAILY #14 tablet 08/30/16 03/17/18 Rx FLUoxetine HCL 10 mg PO DAILY 10/29/17 03/17/18 History Warfarin Sodium [Coumadin] 7.5 mg PO DAILY 10/29/17 03/17/18 History Metoprolol Tartrate [Lopressor] 50 mg PO BID 03/16/18 03/17/18 History Mupirocin 2% Oint [Bactroban 2% 1 applic TOPICAL TID 03/16/18 03/17/18 History Oint] Nystatin-Triamcinolone Oint 1 applic TOPICAL BID 03/16/18 03/17/18 History [Mycolog 100,000-0.1 Unit/gm-% Oint] Pravastatin Sodium [Pravachol] 40 mg PO DAILY 03/16/18 03/17/18 History Tamsulosin [Flomax] 0.4 mg PO DAILY 03/16/18 03/17/18 History Aspirin EC [Ecotrin Low Dose] 81 mg PO DAILY 03/17/18 03/17/18 History Allergies Allergy/AdvReac Type Severity Reaction Status Date / Time Penicillins Allergy Rash/Hives Verified 03/17/18 06:30 codeine AdvReac Hallucinati Verified 03/17/18 06:30 ons Physical Exam Vitals: Vital Signs Temp Pulse Pulse Resp BP BP Pulse Ox 03/17/18 08:00 18 03/17/18 06:40 97.7 F 55 L 18 129/70 95 03/16/18 23:00 98.0 F 57 L 18 122/62 94 L 03/16/18 18:15 97.2 F L 60 16 129/62 97 03/16/18 17:20 56 L 20 121/83 100 03/16/18 16:00 50 L 18 117/57 97 03/16/18 13:18 97.6 F 54 L 24 105/56 96 Intake and Output 03/16/18 03/17/18 03/17/18 22:59 06:59 14:59 Intake Total 500 Output Total 300 Balance 200 Intake: Oral 500 Output: Urine 300 Other: Voiding Method Toilet # Voids 2 Results CBC & Chem 7: 03/16/18 14:01 03/16/18 14:01 Labs: Abnormal Lab Results - Last 24 Hours (Table) 03/16/18 03/16/18 03/16/18 Range/Units 14:01 14:01 14:01 WBC 3.6 L (3.8-10.6) k/uL RBC 3.75 L (4.30-5.90) m/uL Hgb 11.9 L (13.0-17.5) gm/dL Hct 37.0 L (39.0-53.0) % Plt Count 69 L (150-450) k/uL PT (9.0-12.0) sec INR (<1.2) APTT (22.0-30.0) sec Chloride 108 H (98-107) mmol/L BUN 31 H (9-20) mg/dL Glucose 177 H (74-99) mg/dL POC Glucose (mg/dL) (75-99) mg/dL Total Bilirubin 1.7 H (0.2-1.3) mg/dL Total Creatine Kinase 48 L (55-170) U/L Albumin 3.4 L (3.5-5.0) g/dL Urine Protein (Negative) 03/16/18 03/16/18 03/17/18 Range/Units 14:01 22:03 07:06 WBC (3.8-10.6) k/uL RBC (4.30-5.90) m/uL Hgb (13.0-17.5) gm/dL Hct (39.0-53.0) % Plt Count (150-450) k/uL PT 21.8 H (9.0-12.0) sec INR 2.2 H (<1.2) APTT 31.4 H (22.0-30.0) sec Chloride (98-107) mmol/L BUN (9-20) mg/dL Glucose (74-99) mg/dL POC Glucose (mg/dL) 130 H (75-99) mg/dL Total Bilirubin (0.2-1.3) mg/dL Total Creatine Kinase (55-170) U/L Albumin (3.5-5.0) g/dL Urine Protein Trace H (Negative) Thrombosis Risk Factor Assmnt - Choose All That Apply Any of the Below Risk Factors Present?: Yes Each Factor Represents 1 point: Swollen legs (current) Each Risk Factor Represents 3 Points: Age 75 years or older, History of DVT/PE Other congenital or acquired thrombophilia - If yes, enter type in comment: No Thrombosis Risk Factor Assessment Total Risk Factor Score: 7 Thrombosis Risk Factor Assessment Level: High Risk
[2018-03-17] MEDS: FUROSEMIDE 10 MG/ML 4 ML VIAL IV SCH ×2 (20:26→23:44)
[2018-03-17] MEDS: NYSTATIN 100,000 UNIT/GM OINT 30 GM TUBE TOPICAL SCH (20:31)
[2018-03-17] MEDS: TRIAMCINOLONE ACET 0.1% OINTMENT 15 GM TUBE TOPICAL SCH (20:32)
[2018-03-17] MEDS: LATANOPROST 0.005% OPHTH DROPS 2.5 ML BTL BOTH EYES SCH (20:34)
[2018-03-17] MEDS: METOPROLOL TARTRATE 50 MG TAB PO SCH (20:34)
[2018-03-17] MEDS ORDERED: LATANOPROST 0.005% OPHTH DROPS 2.5 ML BTL BOTH EYES SCH (21:00)
--- NOTE | 2018-03-17 21:19 | ECHOF ---
Referral Reason:assess for CHF MEASUREMENTS -------- HEIGHT: 177.8 cm WEIGHT: 106.1 kg BP: 120/70 RVIDd: 3.6 cm (< 3.3) IVSd: 1.4 cm (0.6 - 1.1) LVIDd: 4.0 cm (3.9 - 5.3) LVPWd: 1.2 cm (0.6 - 1.1) IVSs: 1.9 cm LVIDs: 2.4 cm LVPWs: 1.9 cm LA Diam: 3.7 cm (2.7 - 3.8) LAESV Index (A-L): 37.43 ml/m Ao Diam: 3.4 cm (2.0 - 3.7) AV Cusp: 2.1 cm (1.5 - 2.6) EPSS: 1.7 cm MV E Marcio: 1.21 m/s MV DecT: 177 ms MV A Marcio: 0.65 m/s MV E/A Ratio: 1.85 RAP: 15.00 mmHg RVSP: 49.17 mmHg MV EF SLOPE: 55.21 mm/s (70 - 150) MV EXCURSION: 1.73 cm (> 18.000) FINDINGS -------- Sinus rhythm with extra systolic beats. This was a technically difficult study with suboptimal views. The left ventricular size is normal. There is moderate concentric left ventricular hypertrophy. O verall left ventricular systolic function is normal with, an EF between 55 - 60 %. The right ventricle is mildly enlarged. LA is moderately dilated 34-39 ml/m2 The right atrium is normal in size. 3 ml of Lumason was utilized for enhancement of images. Aortic valve is trileaflet and is mildly thickened. Mild mitral annular calcification present. Mild mitral regurgitation is present. Mild tricuspid regurgitation present. There is moderate pulmonary hypertension. The right ventric ular systolic pressure, as measured by Doppler, is 49.17mmHg. Moderate pulmonic regurgitation. The aortic root size is normal. The inferior vena cava is dilated with no significant inspiratory collapse which is consistent estima asa right atrial pressure of >20 mmHg. There is a small pericardial effusion located near the left ventricle. CONCLUSIONS -------- 1. Sinus rhythm with extra systolic beats. 2. This was a technically difficult study with suboptimal views. 3. The left ventricular size is normal. 4. There is moderate concentric left ventricular hypertrophy. 5. Overall left ventricular systolic function is normal with, an EF between 55 - 60 %. 6. The right ventricle is mildly enlarged. 7. LA is moderately dilated 34-39 ml/m2 8. The right atrium is normal in size. 9. 3 ml of Lumason was utilized for enhancement of images. 10. Aortic valve is trileaflet and is mildly thickened. 11. Mild mitral annular calcification present. 12. Mild mitral regurgitation is present. 13. Mild tricuspid regurgitation present. 14. There is moderate pulmonary hypertension. 15. The right ventricular systolic pressure, as measured by Doppler, is 49.17mmHg. 16. Moderate pulmonic regurgitation. 17. The aortic root size is normal. 18. The inferior vena cava is dilated with no significant inspiratory collapse which is consistent es timated right atrial pressure of >20 mmHg. [employer]: EMELINA Bhandari
[2018-03-18] MEDS: FUROSEMIDE 10 MG/ML 4 ML VIAL IV SCH ×4 (06:42→23:36)
[2018-03-18 07:46] LABS: Glucose,Whole Blood 136 mg/dL (75-99)
[2018-03-18 08:03] LABS: INR 1.5 (<1.2); Prothrombin Time 15.5 sec (9.0-12.0)
[2018-03-18 08:11] LABS: Calcium 9.3 mg/dL (8.4-10.2)
[2018-03-18] MEDS: MUPIROCIN 2% OINT 22 GM TUBE TOPICAL SCH ×2 (08:40→08:41)
[2018-03-18] MEDS: NYSTATIN 100,000 UNIT/GM OINT 30 GM TUBE TOPICAL SCH (08:40)
[2018-03-18] MEDS: TRIAMCINOLONE ACET 0.1% OINTMENT 15 GM TUBE TOPICAL SCH (08:41)
[2018-03-18] MEDS: FUROSEMIDE 40 MG TAB PO SCH ×2 (08:42→08:47)
[2018-03-18] MEDS: metFORMIN 500 MG TAB PO SCH ×3 (08:46→16:20)
[2018-03-18] MEDS: DORZOLAMIDE HCL 2% DROPS 10 ML BTL LEFT EYE SCH ×3 (08:46→21:07)
[2018-03-18] MEDS: METOPROLOL TARTRATE 50 MG TAB PO SCH ×2 (08:46→21:09)
[2018-03-18] MEDS: TAMSULOSIN 0.4 MG CAP.ER.24H PO SCH (08:47)
[2018-03-18] MEDS: PRAVASTATIN SODIUM 40 MG TAB PO SCH ×2 (08:47→21:10)
[2018-03-18] MEDS: FLUoxetine HCL 10 MG CAP PO SCH (08:49)
--- NOTE | 2018-03-18 15:03 | XR ---
EXAMINATION TYPE: XR chest 2V DATE OF EXAM: 03/18/2018 COMPARISON: 03/16/2018 HISTORY: Pneumonia TECHNIQUE: Frontal and lateral views of the chest are obtained. FINDINGS: There is left pleural effusion and airspace consolidation left lower lobe. There is no hea rt failure. There are sternal wires. Right lung is fairly clear. Bony thorax is intact. IMPRESSION: Left pleural effusion and left lower lobe pneumonia unchanged or slightly worse than las t exam.
[2018-03-18] MEDS ORDERED: RX INFO: IV CONTRAST WAS GIVEN 1 EACH MISC MISCELLANE PRN (15:08)
--- NOTE | 2018-03-18 16:16 | CT ---
EXAMINATION TYPE: CT chest w con DATE OF EXAM: 03/18/2018 COMPARISON: None HISTORY: left pleural effusion CT DLP: 574.6 mGycm Automated exposure control for dose reduction was used. CONTRAST: CT scan of the chest is performed with IV Contrast, patient injected with 100 mL of Isovue 300. FINDINGS: There is moderate-sized left pleural effusion. There is consolidation and atelectasis in the left low er lobe. There are calcified gallstones. Spleen is normal size. There is coarse interstitial density in the right lower lobe. There is no pericardial effusion. Heart is enlarged. There is cardiac surger y noted. There is no mediastinal adenopathy. There are no hilar masses. There is no adrenal mass. The re are multiple bilateral renal calcifications and more on the right side. No hydronephrosis. Ascendi ng aorta measures 3.7 cm. There is no aneurysm or dissection. I see no obvious filling defect in the pulmonary arteries. IMPRESSION: Moderate left pleural effusion. Left lower lobe consolidation and atelectasis. Interstit ial pulmonary infiltrates. Cardiomegaly. Ascites. Renal calculi.
--- NOTE | 2018-03-18 18:21 | PN ---
PROGRESS NOTE DATE OF SERVICE: 03/18/2018 This is an 82-year-old male presented to the emergency department on March 16 for complaints of shortness of breath. The patient appeared to have a left-sided pleural effusion. Ultrasound suggested that. We attempted a thoracentesis on the left side today. Unfortunately, we could not locate the fluid. I tried multiple locations and rib levels. Anyway, we decided to go ahead and order a followup chest x-ray which appears to show an infiltrate and/or abnormality in the left lower lobe and possible left-sided effusion. Ultrasound did reveal a relatively larger left-sided pleural effusion. Anyway, I think we will go ahead and CT scan the chest. The patient has been urinating quite a bit. Does not require any supplemental oxygen. States that he feels a bit better. Hoping to avoid the thoracentesis if possible. He does have a history of diabetes mellitus, deep venous thrombosis, hyperlipidemia, DJD, pulmonary embolism, status post 5 vessel bypass grafting in 2016, CHF, and hypertension. He was on Coumadin for his pulmonary embolism and we had to stop it. His INR today was 1.5. Current vital signs are reviewed. Temperature is 96.8, heart rate 58, respiratory rate 16, blood pressure 120/66, mean is 84 and room air saturation 96%. Appears in no acute distress. HEENT examination is grossly unremarkable. Mucous membranes are moist. No oral lesions. No supplemental oxygen required. Neck is supple. Full range of motion. No adenopathy or thyromegaly. Cardiovascular examination reveals regular rhythm and rate. No murmur noted. S1, S2 normal. Heart rate is 58. Lungs reveal diminished breath sounds at the left base. No wheezes, rhonchi, or crackles. Breath sounds on the right are clear. Abdomen is soft, bowel sounds are heard. Extremities are intact. No cyanosis, clubbing, or edema. Skin without rash. Neurologic examination is brief but nonfocal. A repeat chest x-ray shows what appears to be an infiltrate and/or mass with pleural effusion at the left lung base. As I mentioned earlier, we will go ahead and CT scan the chest. His PT/INR is 15.5 and 1.5 respectively. Sodium 140, potassium 4, chloride is 110, CO2 of 22, anion gap 8, BUN and creatinine were 26 and 1.18. The rest of the labs look okay. ASSESSMENT: 1. Shortness of breath, likely secondary to the left lower lobe pulmonary process which may relate to infiltrate, mass and/or pleural effusion. 2. Attempted thoracentesis today without benefit or success. 3. History of diabetes mellitus. 4. Deep venous thrombosis. 5. Hyperlipidemia. 6. Degenerative joint disease. 7. History of pulmonary embolism. 8. Status post 5 vessel bypass grafting, 2016. 9. History of congestive heart failure. 10.Hypertension. PLAN: The chest x-ray was done and reviewed. We will go ahead and order a CT scan of the chest with contrast. Additional recommendations and suggestions are forthcoming. We may attempt double thoracentesis tomorrow. We will continue to hold the Coumadin. Additional recommendations and suggestions are forthcoming. I might even have ultrasound people come back and remark the posterior left pleural space for us. Additional recommendations and suggestions are forthcoming. Prognosis is guarded. MMODL / IJN: [id number] /
--- NOTE | 2018-03-18 19:57 | PCN ---
PROCEDURE NOTE PROCEDURE: Attempted left thoracentesis. OPERATORS: Dr. Aviles and Dr. De Los Santos. Indication Pleural effusion. A time-out was completed verifying correct patient, procedure, site, positioning , and implant (s) or special equipment if applicable. Ultrasound guidance was used and appropriate fluid pocket was identified and marked. Patient was positioned, prepped and draped in usual sterile fashion. Lidocaine was used to anesthetize the area. A Thoracentesis catheter was introduced into the pleural space and fluid was removed. Blood loss was none. A chest x-ray was ordered to evaluate for pneumothorax. Total Fluid Removed 00 Color of Fluid: Fluid was not sent for appropriate laboratory tests. Patient tolerated the procedure well and there were no complications. There was informed consent. There was universal timeout. The left posterior chest was marked by ultrasound. I was unsuccessful in obtaining any fluids in the left subpleural space. I tried multiple times to locate the fluid. After 2 or 3 times of attempting, I decided to abort the procedure. There was no immediate complications. There is no bleeding respiratory difficulty. The PA and lateral chest x-ray was ordered. Additional recommendations and suggestions are forthcoming. MMODL / IJN: [id number] /
[2018-03-18] MEDS: LATANOPROST 0.005% OPHTH DROPS 2.5 ML BTL BOTH EYES SCH (21:07)
--- NOTE | 2018-03-18 23:56 | PN ---
PROGRESS NOTE DATE OF SERVICE: 03/18/2018. PRESENTING COMPLAINT: Shortness of breath. INTERVAL HISTORY: Patient presented with shortness of breath. Also has a significant left pleural effusion. Earlier today, Dr. Aviles tried to tap, not much fluid was obtained. I had given patient Lasix tonight. The patient had diuresed rather well overnight. REVIEW OF SYSTEMS: Done for constitutional, cardiovascular, GI, pulmonary; relevant findings as above. CURRENT MEDICATIONS: Reviewed. PHYSICAL EXAMINATION: Temperature 96.8, pulse 50, respiration 16, blood pressure 120/69, pulse ox 96% on room air. GENERAL APPEARANCE: Sitting up, not in distress. EYES: Pupils equal. Conjunctivae normal. NECK: JVD not raised. Mass not palpable. Respiratory effort normal. LUNGS: Decreased breath sounds. CARDIOVASCULAR: 1st and 2nd heart sounds. No edema. ABDOMEN: Soft, nontender. Liver and spleen not palpable. PSYCHIATRY: Alert and oriented x3. Mood and affect normal. INVESTIGATIONS: INR 1.5, potassium 4, BUN 26, creatinine 1.18. ASSESSMENT: 1. Large left pleural effusion. Minimal fluid obtained by thoracentesis. 2. Possibly chronic congestive heart failure exacerbation from diastolic dysfunction. Ejection fraction 55% to 60%. 3. Coronary artery disease with coronary bypass in 2017. 4. Primary osteoarthritis. 5. Benign prostatic hypertrophy. 6. Hyperlipidemia. 7. Paroxysmal atrial fibrillation, currently in sinus rhythm. 8. Chronic Coumadin monitoring. 9. Questionable prior diagnosis of DVT. PLAN: We will repeat the patient's chest x-ray in the morning. Other medication and treatment plan is to continue. Follow with Pulmonary. MMODL / IJN: [id number] /
[2018-03-19] MEDS: FUROSEMIDE 10 MG/ML 4 ML VIAL IV SCH ×3 (06:13→17:03)
--- NOTE | 2018-03-19 07:21 | XR ---
EXAMINATION TYPE: XR chest 2V DATE OF EXAM: 03/19/2018 COMPARISON: Chest x-ray and CT chest from yesterday. HISTORY: Pleural effusion. TECHNIQUE: Frontal and lateral views of the chest are obtained. FINDINGS: There is persistent moderate size left pleural effusion and associated compressive atelect asis and/or infiltrate. No mediastinal shift is seen. Right lung is clear. Cardiac silhouette size i s stable and felt mildly enlarged with slightly ectatic thoracic aorta. The osseous structures are in tact. IMPRESSION: Overall stable findings, mild cardiomegaly with moderate size left pleural effusion and associated left basilar atelectasis and/or infiltrate all redemonstrated.
[2018-03-19 07:23] LABS: INR 1.3 (<1.2); Prothrombin Time 13.4 sec (9.0-12.0)
[2018-03-19] MEDS: metFORMIN 500 MG TAB PO SCH ×3 (07:30→16:18)
[2018-03-19 07:31] LABS: Calcium 8.9 mg/dL (8.4-10.2)
[2018-03-19] MEDS: FLUoxetine HCL 10 MG CAP PO SCH (07:38)
[2018-03-19] MEDS: DORZOLAMIDE HCL 2% DROPS 10 ML BTL LEFT EYE SCH ×3 (07:38→22:55)
[2018-03-19] MEDS: METOPROLOL TARTRATE 50 MG TAB PO SCH ×2 (07:39→22:58)
[2018-03-19] MEDS: TAMSULOSIN 0.4 MG CAP.ER.24H PO SCH (07:40)
[2018-03-19 07:41] LABS: Glucose,Whole Blood 144 mg/dL (75-99)
--- NOTE | 2018-03-19 12:03 | PN ---
PROGRESS NOTE DATE OF SERVICE: 03/19/2018. This is an 82-year-old male that we saw in consultation. He came with shortness of breath. He was found to have a left lower lobe pneumonia and possible left pleural effusion and/or mass. We attempted to do thoracentesis yesterday. He did have ultrasound markings. It was marked laterally. My needle that is contained within the thoracentesis tray that we typically use apparently was not long enough to reach the pleural fluid. I attempted a couple times, was not able to draw any fluid off. I did follow that up with a CT scan to just confirm that there was fluid there and there was based on the CT scan. In addition, a chest x-ray done today continues to show similar findings. There is no complications following the attempted thoracentesis that was done yesterday on 03/18/2018. In addition, the patient has a history of diabetes, DVT, hyperlipidemia, DJD, pulmonary embolism, status post 5 vessel bypass grafting, CHF, and hypertension. The patient is comfortable. Does not require any supplemental oxygen. His INR yesterday was 1.5. Anyway, the patient is very stable. I did ask Interventional Radiology to consider doing an ultrasound-guided thoracentesis as occasionally they will have devices which are longer and able to get into the pleural space. Again, the patient is not having any respiratory difficulty at all and is not requiring any oxygen therapy. Current vital signs are reviewed. Temperature 98, respirations 18, heart rate 57, blood pressure 111/55, mean 73, room air saturation between 93 and 94%. Appears in no acute distress. HEENT examination is grossly unremarkable. Mucous membranes are moist. Neck is supple. Full range of motion. No adenopathy or thyromegaly. Neck veins are flat. Cardiovascular examination reveals regular rhythm and rate. Heart rate in the 60s. S1, S2 normal. Lungs reveal diminished breath sounds at the left base. There is dullness at the left base. No crackles. No wheezes or rhonchi. Abdomen is soft. Bowel sounds are heard. Extremities are intact. No cyanosis, clubbing, or edema. Skin without rash. Neurologic examination is nonfocal. LABORATORY DATA: Includes a PT/INR that was 13.4 and 1.3. Sodium and potassium were normal. Chloride 108. CO2 26, BUN and creatinine were 26 and 1.28. Rest of the labs look okay. Medications are reviewed. Chest x-rays reviewed. CT scan was reviewed. ASSESSMENT: 1. Shortness of breath, likely secondary to left pleural effusion and/or mass and/or pneumonia. 2. Attempted thoracentesis on 03/18/2018 without the ability to remove any fluid. 3. History of diabetes mellitus. 4. Deep vein thrombosis. 5. Hyperlipidemia. 6. Degenerative joint disease. 7. History of pulmonary embolism. 8. Status post 5 vessel bypass grafting, 2016. 9. History of congestive heart failure. 10.History of hypertension. PLAN: Chest x-ray from today and a CT scan from yesterday are reviewed. I did ask Interventional Radiology to consider doing an ultrasound-guided thoracentesis. The patient's INR was only 1.3. I did have the nurse hold the Coumadin for another day. No additional recommendations are made. We will continue to follow. Prognosis is guarded. MMODL / IJN: [id number] / MTDD
--- NOTE | 2018-03-19 22:22 | PN ---
PROGRESS NOTE DATE OF SERVICE: 03/19/2018 PRESENTING COMPLAINT: Short of breath. INTERVAL HISTORY: Patient presented with shortness of breath with large left pleural effusion. The patient did diurese well, but does not feel too much difference on his breathing. Dr. Aviles did try unsuccessfully for thoracentesis. Interventional Radiology has been consulted for the same. Denies any cough, just short of breath with exertion. REVIEW OF SYSTEMS: Done for constitutional, cardiovascular, GI, pulmonary; relevant findings as above. CURRENT MEDICATIONS: Reviewed. EXAMINATION: Afebrile, pulse 77, respiration 18, blood pressure 111/55, pulse ox 93% on room air. GENERAL APPEARANCE: Sitting up on the edge of bed, comfortable. EYES: Pupils equal. Conjunctivae normal. NECK: JVD unable to assess. Mass not palpable. Respiratory effort normal. LUNGS: Decreased breath sounds on the left side. CARDIOVASCULAR: First and second sounds normal, no edema. ABDOMEN: Soft, nontender. Liver and spleen not palpable. PSYCHIATRY: Alert and oriented x3. Mood and affect normal. INVESTIGATION: Chest x-ray film personally reviewed by me shows unchanged large left pleural effusion. BUN 26, creatinine 1.28. ASSESSMENT: 1. Large left pleural effusion, cause unclear. 2. Chronic congestive heart failure from diastolic dysfunction, ejection fraction 55- 60%, patient did not respond to the 2 doses of diuretics even though he diuresed rather well. 3. Coronary artery disease with coronary bypass in 2017. 4. Primary osteoarthritis. 5. Benign prostatic hypertrophy. 6. Hyperlipidemia. 7. Paroxysmal atrial fibrillation, currently in sinus rhythm. 8. Chronic Coumadin monitoring. 9. Questionable prior history of DVT. PLAN: Continue current medication and treatment plan. Will hold off patient's Lasix. Keep a close eye on patient's renal function. Dr. Aviles has ordered interventional radiology to tap the fluid, go from there. MMODL / IJN: [id number] /
[2018-03-19] MEDS: PRAVASTATIN SODIUM 40 MG TAB PO SCH (22:51)
[2018-03-19] MEDS: LATANOPROST 0.005% OPHTH DROPS 2.5 ML BTL BOTH EYES SCH (22:52)
[2018-03-20 07:38] LABS: Glucose,Whole Blood 138 mg/dL (75-99)
[2018-03-20] MEDS: FUROSEMIDE 40 MG TAB PO SCH (07:59)
[2018-03-20] MEDS: metFORMIN 500 MG TAB PO SCH ×3 (07:59→17:44)
[2018-03-20] MEDS: TAMSULOSIN 0.4 MG CAP.ER.24H PO SCH (07:59)
[2018-03-20] MEDS: FLUoxetine HCL 10 MG CAP PO SCH (07:59)
[2018-03-20] MEDS: DORZOLAMIDE HCL 2% DROPS 10 ML BTL LEFT EYE SCH ×3 (07:59→21:31)
[2018-03-20] MEDS: METOPROLOL TARTRATE 50 MG TAB PO SCH ×2 (07:59→21:29)
[2018-03-20] MEDS ORDERED: BISMUTH SUBSALICYLATE 4,192 MG/240 ML BOTTLE PO PRN (10:30)
[2018-03-20 11:55] LABS: Calcium 9.3 mg/dL (8.4-10.2); Potassium 4.4 mmol/L (3.5-5.1)
[2018-03-20 12:36] LABS: INR 1.2 (<1.2)
--- NOTE | 2018-03-20 13:04 | PN ---
PROGRESS NOTE DATE OF SERVICE: 03/20/2018 82-year-old male with a history of shortness of breath, secondary to the left pleural effusion. The patient had an attempted thoracentesis performed on March 18. I was not able to draw any fluid off the left pleural space. I asked interventional Radiology to do an ultrasound-guided thoracentesis. They have not done it as yet. The patient does have a history of diabetes, DVT, hyperlipidemia, DJD, pulmonary embolism, status post 5 vessel bypass grafting, CHF and history of hypertension. The patient is clinically stable. Not requiring any supplemental oxygen. Current vital signs are reviewed. Temperature 98.3, heart rate 60, respiratory rate 18, blood pressure 98/52, mean 67. Room-air saturation 95%. Appears in no acute distress. HEENT examination is grossly unremarkable. Mucous membranes are moist. Neck is supple. Full range of motion. No adenopathy or thyromegaly. Neck veins are flat. Cardiovascular examination reveals regular rhythm rate. Heart sounds are distant. Heart rate is only 60 beats per minute. Lungs reveal diminished breath sounds at the left lung base. A few scattered rhonchi are noted. No crackles. Abdomen is soft. Bowel sounds are heard. Extremities are intact. No cyanosis, clubbing, or edema. Skin without rash. LABS: Reviewed. Sodium 141, potassium 4.4, chloride 109. CO2 26, BUN and creatinine were 25 and 1.31. Glucose is 142. N-terminal proBNP is only 544. Microbiology is pending or negative. ASSESSMENT: 1. Shortness of breath, secondary to left pleural effusion and/or mass and/or pneumonia. 2. Attempted thoracentesis on 03/18/2018 without success. 3. Diabetes mellitus. 4. Deep vein thrombosis. 5. Hyperlipidemia. 6. Degenerative joint disease. 7. History of pulmonary embolism. 8. Status post 5 vessel bypass grafting, 2016. 9. History of congestive heart failure. 10.History of hypertension. PLAN: Plan dated 03/20/2018. The plan is for the patient to have thoracentesis done by ultrasound guided by Interventional Radiology. Additional recommendations and suggestions are forthcoming. We will follow along as needed. The patient is clinically stable. N terminal proBNP was not particularly elevated. X-rays and CT scans have been reviewed. MMODL / IJN: [id number] /
[2018-03-20] MEDS: PRAVASTATIN SODIUM 40 MG TAB PO SCH (21:30)
[2018-03-20] MEDS: LATANOPROST 0.005% OPHTH DROPS 2.5 ML BTL BOTH EYES SCH (21:31)
[2018-03-20] MEDS: diphenhydrAMINE 2% CREAM 28.4 GM TUBE TOPICAL SCH (22:58)
--- NOTE | 2018-03-21 07:23 | PN ---
PROGRESS NOTE DATE OF SERVICE: 03/20/2018 PRESENTING COMPLAINT: Short of breath. INTERVAL HISTORY: Patient presented short of breath with large left pleural effusion with unsuccessful thoracentesis by Dr. Aviles. Awaiting Interventional Radiology to do the same. Breathing is no. Different make much difference with diuresis he states. REVIEW OF SYSTEMS: Done for constitutional, cardiovascular, GI, pulmonary; relevant findings as above. CURRENT MEDICATIONS: Reviewed. PHYSICAL EXAMINATION: Temperature 98, pulse 74, respiration 20, blood pressure 107/61, pulse 96% on room air. GENERAL APPEARANCE: Sitting at the edge of bed, comfortable. EYES: Pupils equal. Conjunctivae normal. NECK: JVD not raised. Mass not palpable. Respiratory effort increased. LUNGS: Decreased breath sounds on the left side. CARDIOVASCULAR: First and second sounds. No edema. ABDOMEN: Soft, nontender. Liver and spleen not palpable. PSYCHIATRY: Alert and oriented x3. Mood and affect normal. INVESTIGATIONS: INR 1.2, BUN 25, creatinine 1.31, proBNP 544. ASSESSMENT: 1. Large left pleural effusion, cause unclear. 2. Chronic congestive heart failure from diastolic dysfunction. Ejection fraction 55- 60 percent. I do not think the patient had any acute exacerbation. 3. Coronary artery disease with coronary bypass in 2017. 4. Primary osteoarthritis. 5. Benign prostatic hypertrophy. 6. Hyperlipidemia. 7. Paroxysmal atrial fibrillation currently in sinus rhythm. 8. Chronic Coumadin monitoring. 9. Questionable prior history of deep venous thrombosis. PLAN: Discussed with Dr. Aviles. If for any reason, Interventional Radiology is not able to do the tap, in that case we will let the patient go home. Patient will probably need a bronchoscopy in that case if this is not all fluid. Go from there. Repeat chest x-ray in the morning. MMODL / IJN: [id number] /
[2018-03-21 07:29] LABS: Glucose,Whole Blood 129 mg/dL (75-99)
[2018-03-21] MEDS: FLUoxetine HCL 10 MG CAP PO SCH (09:28)
[2018-03-21] MEDS: TAMSULOSIN 0.4 MG CAP.ER.24H PO SCH (09:29)
[2018-03-21] MEDS: DORZOLAMIDE HCL 2% DROPS 10 ML BTL LEFT EYE SCH ×3 (09:29→21:47)
[2018-03-21] MEDS: METOPROLOL TARTRATE 50 MG TAB PO SCH ×2 (09:30→21:47)
[2018-03-21] MEDS: FUROSEMIDE 40 MG TAB PO SCH (09:30)
[2018-03-21] MEDS: metFORMIN 500 MG TAB PO SCH ×3 (09:31→17:37)
[2018-03-21] MEDS: diphenhydrAMINE 2% CREAM 28.4 GM TUBE TOPICAL SCH ×3 (09:32→21:50)
[2018-03-21 10:05] LABS: INR 1.2 (<1.2); Prothrombin Time 12.7 sec (9.0-12.0)
[2018-03-21 10:11] LABS: Calcium 8.9 mg/dL (8.4-10.2); Potassium 4.7 mmol/L (3.5-5.1)
[2018-03-21] MEDS: LATANOPROST 0.005% OPHTH DROPS 2.5 ML BTL BOTH EYES SCH (21:38)
[2018-03-21] MEDS: PRAVASTATIN SODIUM 40 MG TAB PO SCH (21:41)
--- NOTE | 2018-03-21 23:09 | PN ---
PROGRESS NOTE DATE OF SERVICE: 03/21/2018 PRESENTING COMPLAINT: Short of breath. INTERVAL HISTORY: The patient presented short of breath, large left pleural effusion with unsuccessful thoracentesis by Dr. Aviles. Awaiting Interventional Radiology to do the same. The patient also was given a trial of IV diuretics with Lasix, did not help the symptoms much. REVIEW OF SYSTEMS: Done for constitutional, cardiovascular, GI, pulmonary and findings as above. CURRENT MEDICATIONS: Reviewed. PHYSICAL EXAMINATION: Temperature 97.2 pulse 82, respiration 20, blood pressure 113/63, pulse ox 95% on room air. GENERAL APPEARANCE: Sitting on the edge of the bed, awake. EYES: Pupils equal. Conjunctivae normal. NECK: JVD not raised. Mass not palpable. Respiratory effort increased. LUNGS: Decreased breath sounds on the left side. CARDIOVASCULAR: First and second sounds. No edema. ABDOMEN: Soft, nontender. Liver and spleen not palpable. PSYCHIATRY: Alert and oriented x3. Mood and affect normal. INVESTIGATIONS: INR 1.2, potassium 4.7, BUN 24, creatinine 1.17. ASSESSMENT: 1. Large left pleural effusion, cause unclear. Awaiting tap by Interventional Radiology. 2. Chronic congestive heart failure from diastolic dysfunction. Ejection fraction 55- 60 percent. 3. Coronary artery disease with coronary bypass in 2017. 4. Primary osteoarthritis. 5. Benign prostatic hypertrophy. 6. Hyperlipidemia. 7. Paroxysmal atrial fibrillation, currently in sinus rhythm. 8. Chronic Coumadin monitoring. 9. Questionable prior history of deep venous thrombosis. PLAN: Care was discussed with the patient. Informed me that the nurse told him that tomorrow they will take him down. Follow with Pulmonary. Other medications to continue. MMODL / IJN: [id number] /
[2018-03-22 07:31] LABS: Glucose,Whole Blood 133 mg/dL (75-99)
[2018-03-22] MEDS: FLUoxetine HCL 10 MG CAP PO SCH (08:42)
[2018-03-22] MEDS: TAMSULOSIN 0.4 MG CAP.ER.24H PO SCH (08:43)
[2018-03-22] MEDS: metFORMIN 500 MG TAB PO SCH ×3 (08:44→16:29)
[2018-03-22] MEDS: METOPROLOL TARTRATE 50 MG TAB PO SCH (08:44)
[2018-03-22] MEDS: DORZOLAMIDE HCL 2% DROPS 10 ML BTL LEFT EYE SCH ×2 (08:46→16:28)
[2018-03-22] MEDS: FUROSEMIDE 40 MG TAB PO SCH (08:46)
[2018-03-22] MEDS: diphenhydrAMINE 2% CREAM 28.4 GM TUBE TOPICAL SCH ×2 (08:48→16:28)
[2018-03-22 09:01] LABS: Mean Platelet Volume 10.4
[2018-03-22 09:07] LABS: Platelet Count 61 k/uL (150-450)
[2018-03-22 09:08] LABS: INR 1.1 (<1.2); Prothrombin Time 11.9 sec (9.0-12.0)
[2018-03-22 09:10] LABS: Calcium 9.1 mg/dL (8.4-10.2); Potassium 4.8 mmol/L (3.5-5.1)
--- NOTE | 2018-03-22 12:17 | P.PN ---
Subjective Progress Note Date: 03/22/18 Principal diagnosis: Shortness of breath, secondary to left pleural effusion and/or mass and/or pneumonia This is a 82-year-old male patient with complaint of dyspnea secondary to left pleural effusion. Thoracentesis was attempted on March 18, which was unsuccessful, interventional radiology was consulted for ultrasound-guided thoracentesis. Patient's anticoagulation has been on hold, today's INR is 1.1, and patient scheduled for his procedure 2:00 this afternoon. Is currently sitting up on the edge of the bed, in no acute distress, room air pulse ox is 96 %, he is afebrile, hemodynamically stable, does have some exertional dyspnea, breath sounds over the left lung are diminished, dullness to percussion, clear on the right. No fever or chills. Today's lab work showed platelet count of 61 , INR is 1.1, sodium is 139, potassium is 4.8, chloride is 112, CO2 was 18, BUN was 26 and creatinine is 1.16. No complaints of cough, worsening dyspnea, chest congestion, or hemoptysis. Echo showed EF between 55 and 60%, and moderate pulmonary hypertension pressure of 49 mmHg. Objective - Vital Signs Vital signs: Vital Signs Temp 96.7 F L 03/22/18 07:26 Pulse 64 03/22/18 07:26 Resp 20 03/22/18 07:26 BP 107/57 03/22/18 07:26 Pulse Ox 96 03/22/18 07:26 Intake & Output 03/21/18 03/22/18 03/22/18 18:59 06:59 18:59 Other: # Voids 3 0 2 - Exam GENERAL EXAM: Alert, active, comfortable in no apparent distress. HEAD: Normocephalic/atraumatic. EYES: Normal reaction of pupils, equal size. Conjunctiva pink, sclera white. NOSE: Clear with pink turbinates. THROAT: No erythema or exudates. NECK: No masses, no JVD, no thyroid enlargement, no adenopathy. CHEST: No chest wall deformity. Symmetrical expansion. LUNGS: Equal air entry with breast sounds over left lung, with dullness at the base CVS: Regular rate and rhythm, normal S1 and S2, no gallops, no murmurs, no rubs ABDOMEN: Soft, nontender. No hepatosplenomegaly, normal bowel sounds, no guarding or rigidity. EXTREMITIES: No clubbing, no edema, no cyanosis, 2+ pulses and upper and lower extremities. MUSCULOSKELETAL: Muscle strength and tone normal. SPINE: No scoliosis or deformity SKIN: No rashes CENTRAL NERVOUS SYSTEM: Alert and oriented -3. No focal deficits, tone is normal in all 4 extremities. PSYCHIATRIC: Alert and oriented -3. Appropriate affect. Intact judgment and insight. - Labs CBC & Chem 7: 03/22/18 08:48 03/22/18 08:48 Labs: Abnormal Lab Results - Last 24 Hours (Table) 03/22/18 03/22/18 03/22/18 Range/Units 07:29 08:48 08:48 Plt Count 61 L (150-450) k/uL Chloride 112 H (98-107) mmol/L Carbon Dioxide 18 L (22-30) mmol/L BUN 26 H (9-20) mg/dL Glucose 206 H (74-99) mg/dL POC Glucose (mg/dL) 133 H (75-99) mg/dL Assessment and Plan Plan: Assessment: #1. Dyspnea related to left pleural effusion and/or mass and/or pneumonia #2. Attempted thoracentesis on 03/18/2018 without success #3. ABGs mellitus #4. History of DVT and pulmonary embolism, on chronic anticoagulation #5. Hyperlipidemia #6. DJD #7. History of 5 vessel bypass grafting in 2016 #8. History of chronic congestive heart failure #9. Hypertension Plan: Patient is scheduled for ultrasound-guided thoracentesis today at 2:00 by interventional radiology. Fluid will be sent for analysis, cultures and cytology. If patient is doing well after the procedure patient can be considered for discharge home. Will follow-up in the office. I performed a history & physical examination of the patient and discussed their management with my nurse practitioner, Ale Del Rio. I reviewed the nurse practitioner's note and agree with the documented findings and plan of care. Lung sounds are positive for diminished breath sounds on the left. The findings and the impression was discussed with the patient. I attest to the documentation by the nurse practitioner. Time with Patient: Less than 30
--- NOTE | 2018-03-22 15:07 | XR ---
EXAMINATION TYPE: XR chest 1V DATE OF EXAM: 03/22/2018 COMPARISON: Prior chest x-ray 03/19/2018 HISTORY: Status post left thoracentesis TECHNIQUE: Single frontal view of the chest is obtained. FINDINGS: Persistent abnormal density noted in the left lower lung compatible with effusion and asso ciated atelectasis or pneumonia. No evident pneumothorax. Patient is post median sternotomy. Heart is obscured. IMPRESSION: No evident complication status post left thoracentesis.
--- NOTE | 2018-03-22 15:48 | US ---
EXAMINATION TYPE: US thoracentesis DATE OF EXAM: 03/22/2018 COMPARISON: NONE HISTORY: Pleural effusion. FINDINGS: Maximal barrier technique was utilized. The skin overlying a suitable pocket of fluid was localized and the overlying skin prepped and draped. Lidocaine was used for local anesthesia. Ultras ound was used with sterile technique. A 5 Welsh catheter over guide needle was advanced into the pl eural fluid collection using ultrasound guidance and the catheter advanced, needle removed. Approxim ately 0.3 liter(s) of Staci fluid was removed. Catheter was withdrawn and hemostasis achieved. Ther e is no immediate complication. The patient discharged in stable condition without complication. IMPRESSION: STATUS POST ULTRASOUND GUIDED THORACENTESIS, POST PROCEDURE CHEST X-RAY PENDING. THIS FL OCEDURE WAS PERFORMED BY THE UNDERSIGNED. Specimen sent for laboratory analysis.
[2018-03-22 16:03] VITALS: RESP 18; TEMP 97.7
[2018-03-22 16:41] LABS: Appearance,BF Hazy; Nucleated Cells, Body Fluid 1300 /uL; RBC, Body Fluid 6850 /uL
[2018-03-22 16:42] LABS: Mononuclear WBC,Body Fluid 96 %; Polynuclear WBC,Body Fluid 4 %; Total Cells Counted,Body Fluid 100
[2018-03-22 18:15] VITALS: BP 129/67; PULSE 51
[2018-03-23 04:16] LABS: Total Protein, Body Fluid 2797 mg/dL
--- NOTE | 2018-04-09 07:36 | P.DS ---
Providers Date of admission: 03/19/18 13:02 Attending physician: Gordon Long Consults: 03/16/18 15:59 Consult Physician Stat Consulting Provider: Nathaniel Aviles Reason/Comments: pleural effusion Do you want consulting provider notified?: Yes Primary care physician: S[facility] Course: This is a pleasant 82 years old male who presents because of chronic dyspnea secondary to left pleural effusion. Patient states that he has this dyspnea for a few weeks and it is been stable, with no chest pain or coughing. Patient underwent 2 unsuccessful attempts for thoracocentesis by the pulmonary team. So patient underwent ultrasound-guided thoracocentesis with approximately 0.3 L of mary fluid was removed. Postprocedure patient was a stable. And his repeat chest x-ray shows no evidence of complication. I discussed the case with Dr. Aviles, Patient was cleared by pulmonary team to be discharged today after the procedure. Patient also was on Coumadin for 2 years as he confirmed to me, when I asked the patient was was taking the Coumadin he did not know but he referred to heart disease. there was concerns by the pulmonary team should patient continue on anticoagulation since his been having it for 2 years for possible thrombotic disease of the lung or leg but this was not confirmed although it was mentioned in the chart. patient himself told me that he started 2 years ago because of his heart disease. I called his PCP Dr. Parks which was off the office, so I spoke with his physician hygiene assistant Ms. Desai who told me the patient was taking Coumadin for atrial fibrillation. I informed the patient this and he agreed to continue with Coumadin. Patient was instructed to start using Coumadin from [facility] and to follow up with his PCP to check his INR in 2 days and he agreed. From to me he does not need any prescription and he has his Coumadin pills/scripts at home. Also patient was instructed to follow up with PCP and Dr. Aviles for the result of his pleural tap including cytology, culture and analysis and he verbalized understanding and acceptance. Also I spoke with Mrs. Desai the physician hygiene assistant and informed her to follow up with the pleural fluid Results and she currently took note of this. Patient was cleared by pulmonary team for discharge today. Problems and management plan was discussed with the patient details and he verbalized understanding and acceptance. Patient also was eager to be discharged today and he did not want to wait 1 more day if indicated. Patient was found stable and can be discharged home however he needs follow-up as an outpatient. Patient agrees with appointment and time and with his PCP and pulmonary office. physical exam Gen.: Patient alert awake and oriented X 3, NOT IN DISTRESS CVS: s1-s2, RRR, no murmur CHEST:bilateral CTA, no wheezing or crepitation Abdomen: Soft, no tenderness, no distention, positive bowel sounds Extremities: No leg edema or induration Time spent more than 35 minutes Plan - Discharge Summary Discharge Rx Participant: Yes New Discharge Prescriptions: Continue Dorzolamide 2% [Trusopt 2%] 1 drops LEFT EYE TID metFORMIN HCL [Glucophage] 500 mg PO AC-TID Latanoprost [Xalatan 0.005%] 1 drop BOTH EYES HS Furosemide [Lasix] 40 mg PO DAILY #14 tablet Warfarin Sodium [Coumadin] 7.5 mg PO DAILY FLUoxetine HCL 10 mg PO DAILY Tamsulosin [Flomax] 0.4 mg PO DAILY Nystatin-Triamcinolone Oint [Billetto 100,000-0.1 Unit/gm-% Oint] 1 applic TOPICAL BID Mupirocin 2% Oint [Bactroban 2% Oint] 1 applic TOPICAL TID Pravastatin Sodium [Pravachol] 40 mg PO DAILY Metoprolol Tartrate [Lopressor] 50 mg PO BID Aspirin EC [Ecotrin Low Dose] 81 mg PO DAILY Discharge Medication List Dorzolamide 2% [Trusopt 2%] 1 drops LEFT EYE TID 08/06/16 [History] Latanoprost [Xalatan 0.005%] 1 drop BOTH EYES HS 08/09/16 [History] metFORMIN HCL [Glucophage] 500 mg PO AC-TID 08/09/16 [History] Furosemide [Lasix] 40 mg PO DAILY #14 tablet 08/30/16 [Rx] FLUoxetine HCL 10 mg PO DAILY 10/29/17 [History] Warfarin Sodium [Coumadin] 7.5 mg PO DAILY 10/29/17 [History] Metoprolol Tartrate [Lopressor] 50 mg PO BID 03/16/18 [History] Mupirocin 2% Oint [Bactroban 2% Oint] 1 applic TOPICAL TID 03/16/18 [History] Nystatin-Triamcinolone Oint [Mycolog 100,000-0.1 Unit/gm-% Oint] 1 applic TOPICAL BID 03/16/18 [History] Pravastatin Sodium [Pravachol] 40 mg PO DAILY 03/16/18 [History] Tamsulosin [Flomax] 0.4 mg PO DAILY 03/16/18 [History] Aspirin EC [Ecotrin Low Dose] 81 mg PO DAILY 03/17/18 [History] Follow up Appointment(s)/Referral(s): Sage Parks MD [Primary Care Provider] - 03/24/18 8:00 am Nathaniel Aviles DO [Doctor of Osteopathic Medicine] - 03/30/18 10:30 am (please follow up the result of your pleural fluid tap) Patient Instructions/Handouts: Type 2 Diabetes in Adults: New Diagnosis (DC), Pleural Effusion (DC) Activity/Diet/Wound Care/Special Instructions: cardiac diet activity is limited till you see your doctor Discharge Disposition: HOME SELF-CARE
--- NOTE | 2018-04-12 08:16 | CDI ---
Documentation Clarification Form Date: 04/12/18 From: Linda Monroe Phone: If you have a question regarding this query, please contact Mary Zamudio at [phone] between 8am and 5pm. Admit Date: 03/19/2018 1:02:00 PM Patient Name: Angel Michele Visit Number: [id number] Discharge Date: 03/22/2018 6:27:00 PM ATTENTION: The Clinical Documentation Specialists (CDI) and [facility] Coding Staff appreciate your assistance in clarifying documentation. Please respond to the clarification below the line at the bottom and electronically sign. The CDI & [facility] Coding staff will review the response and follow-up if needed. Please note: Queries are made part of the Legal Health Record. If you have any questions, please contact the author of this message via ITS. Dr. Gordon Long The patient presented with shortness of breath due to pleural effusion. History/Risk Factors: Patient admitted for left pleural effusion. The patient has a history of CHF, hypertension, CAD and A-fib. Clinical Indicators: Shortness of breath, mild pitting edema of the lower extremities. Lab findings: WBC 3.6, BNP 738 Radiology findings: CXR on admit: Persistent cardiomegaly with small to moderat-sized left pleural effusion and associated left basilar atelectasis and/ or infiltrate. Vital Signs: T. 97.6, P. 54, R. 24, BP 105/56, Pulse ox. 96 PAP Stain: No cytologically malignant cells identified. Treatment: IV Lasix, Thoracentesis Consult: Shortness of breath secondary to left pleural effusion and/or mass and /or pneumonia. In your professional opinion, can you please clarify the etilology of the pleural effusion? CHF:(please specify acuity) Acute Chronic Malignancy (please specify site): Infection (please specify): Other, please specify Unable to determine MTDD
--- NOTE | 2018-04-17 08:37 | CDI ---
Documentation Clarification Form Date: 04/17/18 From: Linda Monroe Phone: If you have a question regarding this query, please contact Mary Zamudio at [phone] between 8am and 5pm. Admit Date: 03/19/2018 1:02:00 PM Patient Name: Angel Michele Visit Number: [id number] Discharge Date: 03/22/2018 6:27:00 PM ATTENTION: The Clinical Documentation Specialists (CDI) and [facility] Coding Staff appreciate your assistance in clarifying documentation. Please respond to the clarification below the line at the bottom and electronically sign. The CDI & [facility] Coding staff will review the response and follow-up if needed. Please note: Queries are made part of the Legal Health Record. If you have any questions, please contact the author of this message via ITS. Dr. Erazo Sheet The patient presented with shortness of breath due to pleural effusion. History/Risk Factors: Patient admitted for left pleural effusion. The patient has a history of CHF, hypertension, CAD and A-fib. Clinical Indicators: Shortness of breath, mild pitting edema of the lower extremities. Lab findings: WBC 3.6, BNP 738 Radiology findings: CXR on admit: Persistent cardiomegaly with small to moderat-sized left pleural effusion and associated left basilar atelectasis and/ or infiltrate. Vital Signs: T. 97.6, P. 54, R. 24, BP 105/56, Pulse ox. 96 PAP Stain: No cytologically malignant cells identified. Treatment: IV Lasix, Thoracentesis Consult: Shortness of breath secondary to left pleural effusion and/or mass and /or pneumonia. In your professional opinion, can you please clarify the etilology of the pleural effusion? CHF:(please specify acuity) Acute Chronic Malignancy (please specify site): Infection (please specify): Other, please specify Unable to determine please refer to pulmonary note " Dyspnea related to left pleural effusion and/ or mass and/or pneumonia " and she to follow up with pulmonary team upon discharge FABIEN
== END 2018-03-22 18:27 | disposition home or self-care (01) | DRG 187 ==
LOC: EC 13:02 → 4MS4W 15:53 → OBSVTOIN 03-19 13:02
PROVIDERS: ADMIT Hospitalist; ATTEND Hospitalist
PROC: 0W9B3ZX Drainage of Left Pleural Cavity, Percutaneous Approach, Diagnostic (ICD-10-PCS; principal; 2018-03-22)
DX: J90 Pleural effusion, not elsewhere classified (principal); I50.32 Chronic diastolic (congestive) heart failure; I11.0 Hypertensive heart disease with heart failure; E11.9 Type 2 diabetes mellitus without complications; E78.5 Hyperlipidemia, unspecified; I25.10 Atherosclerotic heart disease of native coronary artery without angina pectoris; I27.20 Pulmonary hypertension, unspecified; I48.0 Paroxysmal atrial fibrillation; K29.50 Unspecified chronic gastritis without bleeding; M19.91 Primary osteoarthritis, unspecified site; N40.0 Benign prostatic hyperplasia without lower urinary tract symptoms; I25.2 Old myocardial infarction; Z79.01 Long term (current) use of anticoagulants; Z79.84 Long term (current) use of oral hypoglycemic drugs; Z79.899 Other long term (current) drug therapy; Z86.711 Personal history of pulmonary embolism; Z86.718 Personal history of other venous thrombosis and embolism; Z87.891 Personal history of nicotine dependence; Z95.1 Presence of aortocoronary bypass graft; Z88.5 Allergy status to narcotic agent; Z88.0 Allergy status to penicillin; Z80.8 Family history of malignant neoplasm of other organs or systems
CPT/HCPCS: 32555; 36415; 71045; 71046; 71260; 76604; 80048; 80053; 81003; 82550; 82553; 82945; 83615; 83880; 84155; 84157; 84484; 85025; 85049; 85610; 85730; 87070; 87205; 88108; 88305; 89050; 93005; 93306; 99285

== ENCOUNTER 2018-05-03 09:01 | Day surgery (SDC) | payer MEDICARE ==
[2018-05-03 09:45] LABS: INR 1.2 (<1.2); Prothrombin Time 12.2 sec (9.0-12.0)
[2018-05-03 09:53] VITALS: RESP 18; TEMP 98.4
[2018-05-03 10:05] LABS: Mean Platelet Volume 10.5
[2018-05-03 10:07] LABS: Platelet Count 71 k/uL (150-450)
--- NOTE | 2018-05-03 10:53 | XR ---
EXAMINATION TYPE: XR chest 1V DATE OF EXAM: 05/03/2018 COMPARISON: Prior chest x-ray 03/22/2018 HISTORY: Status post thoracentesis TECHNIQUE: Single frontal view of the chest is obtained. FINDINGS: There is no significant interval change. IMPRESSION: No evident complication status post left thoracentesis
[2018-05-03 11:31] VITALS: BP 109/48; PULSE 49
--- NOTE | 2018-05-03 12:16 | US ---
EXAMINATION TYPE: US thoracentesis DATE OF EXAM: 05/03/2018 COMPARISON: NONE HISTORY: Pleural effusion. FINDINGS: Maximal barrier technique was utilized. The skin overlying a suitable pocket of fluid was localized and the overlying skin prepped and draped. Lidocaine was used for local anesthesia. Ultras ound was used with sterile technique. A 5 Kazakh catheter over guide needle was advanced into the pl eural fluid collection using ultrasound guidance and the catheter advanced, needle removed. Approxim ately 1 liter(s) of serous sanguinous fluid was removed. Catheter was withdrawn and hemostasis achie radha. There is no immediate complication. The patient discharged in stable condition without complic ation. IMPRESSION: STATUS POST ULTRASOUND GUIDED THORACENTESIS, POST PROCEDURE CHEST X-RAY PENDING. THIS MS OCEDURE WAS PERFORMED BY THE UNDERSIGNED.
== END 2018-05-03 11:15 | disposition home or self-care (01) ==
LOC: RADPROMAIN 09:01
PROVIDERS: ATTEND Internal Medicine Sleep Medicine
DX: J90 Pleural effusion, not elsewhere classified (principal)
CPT/HCPCS: 32555; 36415; 71045; 85049; 85610

== ENCOUNTER 2018-06-05 01:27 | Observation (INO) | payer MEDICARE ==
[2018-06-05] MEDS ORDERED: MORPHINE SULFATE 4 MG/ML SYRINGE IV STA (01:54)
[2018-06-05] MEDS ORDERED: ONDANSETRON 4 MG/2 ML VIAL IVP STA (01:54)
[2018-06-05] MEDS ORDERED: SODIUM CHLORIDE 0.9% 500 ML 500 ML IV STA (01:54)
[2018-06-05] MEDS ORDERED: TRIMETHOBENZAMIDE 100 MG/ML 2 ML VIAL IM STA ×2 (02:19→04:21)
[2018-06-05 02:22] LABS: Basophils % (A) 0 %; Eosinophils # (A) 0.1 k/uL (0-0.7); Eosinophils % (A) 1 %; HCT 37.5 % (39.0-53.0); HGB 12.1 gm/dL (13.0-17.5); Hypochromasia Slight; Lymphocytes # (A) 1.1 k/uL (1.0-4.8); Lymphocytes % (A) 21 %; MCH 32.6 pg (25.0-35.0); MCHC 32.3 g/dL (31.0-37.0); MCV 100.8 fL (80.0-100.0); Macrocytosis Slight; Monocytes # (A) 0.2 k/uL (0-1.0); Monocytes % (A) 4 %; Neutrophils # (A) 3.6 k/uL (1.3-7.7); Neutrophils % (A) 73 %; RBC 3.72 m/uL (4.30-5.90); RDW 15.6 % (11.5-15.5); WBC 4.9 k/uL (3.8-10.6)
[2018-06-05 02:25] LABS: Platelet Count 62 k/uL (150-450)
[2018-06-05 02:31] LABS: INR 1.3 (<1.2); Partial Thromboplastin Time 22.3 sec (22.0-30.0); Prothrombin Time 13.4 sec (9.0-12.0)
[2018-06-05 02:34] LABS: Albumin 3.4 g/dL (3.5-5.0); Calcium 9.2 mg/dL (8.4-10.2); Potassium 4.4 mmol/L (3.5-5.1); Total Bilirubin 1.6 mg/dL (0.2-1.3); Total Protein 6.5 g/dL (6.3-8.2)
[2018-06-05] MEDS ORDERED: ACETAMINOPHEN IV (For NPO) 1,000 MG in EMPTY BAG 1 BAG IVPB ONE (03:15)
--- NOTE | 2018-06-05 03:44 | CT ---
EXAM: CT Angiography Chest With Intravenous Contrast CLINICAL HISTORY: Pain TECHNIQUE: Axial computed tomographic angiography images of the chest with intravenous contrast using pulmonary embolism protocol. CTDI is 0.142, 0. 142, 13.8, 4., 4 x 19, 13.5 mGy and DLP is 2149.8 mGy-cm. This CT exam was performed using one or more of the following dose reduction techniques: automated exposure control, adjustment of the mA and/or kV according to patient size, and/or use of iterative reconstruction technique. MIP reconstructed images were created and reviewed. COMPARISON: No relevant prior studies available. FINDINGS: Artifacts: Motion. Pulmonary arteries: Enlarged main pulmonary artery can be seen in the setting of pulmonary arterial hypertension. No large central pulmonary embolism. Aorta: No acute findings. No thoracic aortic aneurysm. Lungs: Atelectasis in the left lung. A superimposed infectious or inflammatory process is not excluded. Apical pleural-parenchymal scar. No mass. Pleural space: Large left pleural effusion. No pneumothorax. Heart: Calcification of the coronary arteries. Line postoperative mediastinum. Bones/joints: No acute osseous abnormality. Degenerative changes of the spine. Soft tissues: Unremarkable. Lymph nodes: Unremarkable. No enlarged lymph nodes. IMPRESSION: 1. Large left pleural effusion. 2. Atelectasis in the left lung. A superimposed infectious or inflammatory process is not excluded. EXAM: CT Angiography Abdomen With Intravenous Contrast CLINICAL HISTORY: Pain TECHNIQUE: Axial computed tomographic angiography images of the abdomen with intravenous contrast. CTDI is 0.142, 0.142, 13.8, 4., 4 x 19, 13.5 mGy and DLP is 2149.8 mGy-cm. This CT exam was performed using one or more of the following dose reduction techniques: automated exposure control, adjustment of the mA and/or kV according to patient size, and/or use of iterative reconstruction technique. MIP reconstructed images were created and reviewed. COMPARISON: No relevant prior studies available. FINDINGS: Aorta: No acute findings. No abdominal aortic aneurysm. No dissection. Celiac trunk and mesenteric arteries: No acute findings. No occlusion or significant stenosis. Renal arteries: No acute findings. No occlusion or significant stenosis. Lung bases: Unremarkable. No mass. No consolidation. Liver: Nodular hepatic contour. Gallbladder and bile ducts: Cholelithiasis. No ductal dilation. Pancreas: Unremarkable. No ductal dilation. Spleen: Splenomegaly. Adrenals: Unremarkable. Kidneys and ureters: Subcentimeter bilateral nephrolithiasis. No hydronephrosis. Stomach and bowel: Unremarkable. No obstruction. Intraperitoneal space: Small amount of ascites. No free air or loculated fluid collection. Bones/joints: No acute osseous abnormality. Degenerative changes of the spine. Soft tissues: Unremarkable. No mass. Lymph nodes: Unremarkable. No enlarged lymph nodes. IMPRESSION: Morphologic features of cirrhosis with stigmata of portal venous hypertension, including splenomegaly and a small amount of ascites.
--- NOTE | 2018-06-05 04:01 | ED ---
Abdominal Pain HPI - General Source: patient Mode of arrival: wheelchair Limitations: physical limitation <Leonor Gaspar - Last Filed: 06/05/18 05:04> <Jas Moss - Last Filed: 06/05/18 05:35> - General Chief Complaint: Abdominal Pain Stated Complaint: Upper Abd Pain Fluid In Lt Lung Time Seen by Provider: 06/05/18 01:39 - History of Present Illness Initial Comments: 82-year-old male patient presents to the emergency department today for evaluation of upper abdominal pain and pressure that started around 10:30 this evening. Patient does pain radiation through to his back. States he does feel nauseated but has not vomited. States his bowel movements has been normal and he did have 2 bowel movements today. Denies any hematochezia, melena, hematemesis. Denies any difficulty with urination including hematuria, dysuria, urinary urgency, urinary frequency. Patient denies any fevers or chills with this. Denies any chest pain. States he has been having chronic shortness of breath due to a pleural effusion in the left lung. Patient states that he is eating and drinking without difficulty throughout the day. Patient denies any recent rash, numbness, tingling, dizziness, weakness, headache, visual changes, or any other complaints. (Leonor Gaspar) - Related Data Home Medications Medication Instructions Recorded Confirmed Dorzolamide 2% [Trusopt 2%] 1 drops LEFT EYE TID 08/06/16 06/02/18 Latanoprost [Xalatan 0.005%] 1 drop BOTH EYES HS 08/09/16 06/02/18 metFORMIN HCL [Glucophage] 500 mg PO AC-TID 08/09/16 06/02/18 Warfarin Sodium [Coumadin] 7.5 mg PO DAILY 10/29/17 06/02/18 Metoprolol Tartrate [Lopressor] 50 mg PO BID 03/16/18 06/02/18 Pravastatin Sodium [Pravachol] 40 mg PO HS 03/16/18 06/02/18 Tamsulosin [Flomax] 0.4 mg PO DAILY 03/16/18 06/02/18 Aspirin EC [Ecotrin Low Dose] 81 mg PO DAILY 03/17/18 06/02/18 [place]-3 Fatty Acids/Fish Oil [Fish 1 cap PO TID 04/26/18 06/02/18 Oil 1,000 mg Softgel] Prednisolone Acetate/Pf 1 drop LEFT EYE DAILY 04/26/18 06/02/18 [Prednisolone Acet 1% Eye Drop] Previous Rx's Medication Instructions Recorded Furosemide [Lasix] 40 mg PO DAILY #14 tablet 08/30/16 Allergies Allergy/AdvReac Type Severity Reaction Status Date / Time Penicillins Allergy Rash/Hives Verified 06/05/18 01:36 codeine AdvReac Hallucinati Verified 06/05/18 01:36 ons tape AdvReac Rash/Hives Uncoded 06/05/18 01:36 Review of Systems ROS Other: All systems not noted in ROS Statement are negative. <Leonor Gaspar - Last Filed: 06/05/18 05:04> ROS Other: All systems not noted in ROS Statement are negative. <Jas Moss - Last Filed: 06/05/18 05:35> ROS Statement: Those systems with pertinent positive or pertinent negative responses have been documented in the HPI. Past Medical History Past Medical History: Diabetes Mellitus, Deep Vein Thrombosis (DVT), Eye Disorder, Hyperlipidemia, Osteoarthritis (OA), Prostate Disorder, Pulmonary Embolus (PE) Additional Past Medical History / Comment(s): Three-vessel coronary artery disease, shingles, History of Any Multi-Drug Resistant Organisms: None Reported Past Surgical History: Coronary Bypass/CABG Additional Past Surgical History / Comment(s): corneal transplant, thoracentesis times 2 Past Anesthesia/Blood Transfusion Reactions: No Reported Reaction Past Psychological History: No Psychological Hx Reported Smoking Status: Former smoker Past Alcohol Use History: None Reported Past Drug Use History: None Reported - Past Family History Mother Family Medical History: No Reported History Brother(s) Family Medical History: Cancer Additional Family Medical History / Comment(s): bone cancer Father Family Medical History: Cancer Additional Family Medical History / Comment(s): skin/bone cancer <Leonor Gaspar - Last Filed: 06/05/18 05:04> General Exam Limitations: physical limitation General appearance: alert, in no apparent distress, other <Leonor Gaspar - Last Filed: 06/05/18 05:04> Course Vital Signs 06/05/18 06/05/18 06/05/18 01:31 01:46 02:00 Temperature 97.9 F Pulse Rate 70 51 L 49 L Respiratory 20 27 H 24 Rate Blood Pressure 130/64 133/61 O2 Sat by Pulse 97 95 98 Oximetry 06/05/18 06/05/18 06/05/18 02:41 03:29 04:58 Temperature Pulse Rate 54 L 56 L 61 Respiratory 22 20 18 Rate Blood Pressure 86/58 130/82 103/66 O2 Sat by Pulse 96 96 96 Oximetry Medical Decision Making - Lab Data Result diagrams: 06/05/18 02:05 06/05/18 02:05 - EKG Data -: EKG Interpreted by Me <Leonor Gaspar - Last Filed: 06/05/18 05:04> - Lab Data Result diagrams: 06/05/18 02:05 06/05/18 02:05 <Jas Moss - Last Filed: 06/05/18 05:35> - Medical Decision Making Patient is sent out to me by previous shift nurse practitioner Leonor perez. Briefly, patient is 82-year-old male with multiple comorbidities including DVT, diabetes, dyslipidemia, PE, coronary artery disease. Approximate then 30 p.m. last night patient began experiencing severe epigastric and right upper quadrant abdominal pain. Patient is scheduled to receive an outpatient thoracentesis performed by pulmonology. He is benign his Coumadin for approximately 3 days. Patient has some nausea. No vomiting. Patient had regular bowel movements rece ntly. Hemodynamically patient has stable vital signs upon arrival. However he is having intermittent readings of low blood pressure with systolics in the 70s. He however is mentating appropriately and not showing any symptoms of hypotension at this time. 2 large-bore IVs were placed. Patient given intravenous fluids. Patient is in significant abdominal pain is given analgesia and antibiotics. CT of the chest abdomen and pelvis shows findings to suggest portal venous hypertension. Patient also has splenomegaly and mild amount of ascites. Laboratory evaluation was performed. No leukocytosis. Rest of CBC shows 62 platelets which is likely from splenic sequestration. This appears to be patient's baseline. Patient hemoglobin stable at 12.1. No leukocytosis. Coag panel shows INR 1.3. Metabolic panel shows no gap acidosis. Patient does have slightly elevated BUN to creatinine ratio suggesting mild dehydration. Lactic acidosis 3.0 likely secondary to liver failure. Bilirubin 1.6. No elevation in liver markers. Cardiac enzymes negative. On physical examination patient's abdomen slightly tense. Thornton catheter is placed. Given degree of abdominal pain. We'll plan to have patient admitted to the internal medicine with GI and general surgical consultation. Patient symptoms are pain out of proportion. Laboratory evaluation is benign currently. Ultrasound shows cho lelithiasis. There is no findings suggest acute cholecystitis at this time, or surgical abdomen at this time. He expense relief after Thornton was placed. Blood pressures are improved with intravenous fluids. There is a likely component of dehydration. (Jas Moss) - Lab Data Lab Results 06/05/18 06/05/18 06/05/18 Range/Units 02:05 02:05 02:05 WBC 4.9 (3.8-10.6) k/uL RBC 3.72 L (4.30-5.90) m/uL Hgb 12.1 L (13.0-17.5) gm/dL Hct 37.5 L (39.0-53.0) % MCV 100.8 H (80.0-100.0) fL MCH 32.6 (25.0-35.0) pg MCHC 32.3 (31.0-37.0) g/dL RDW 15.6 H (11.5-15.5) % Plt Count 62 L (150-450) k/uL Neutrophils % 73 % Lymphocytes % 21 % Monocytes % 4 % Eosinophils % 1 % Basophils % 0 % Neutrophils # 3.6 (1.3-7.7) k/uL Lymphocytes # 1.1 (1.0-4.8) k/uL Monocytes # 0.2 (0-1.0) k/uL Eosinophils # 0.1 (0-0.7) k/uL Basophils # 0.0 (0-0.2) k/uL Hypochromasia Slight Macrocytosis Slight PT (9.0-12.0) sec INR (<1.2) APTT (22.0-30.0) sec Sodium 143 (137-145) mmol/L Potassium 4.4 (3.5-5.1) mmol/L Chloride 108 H (98-107) mmol/L Carbon Dioxide 24 (22-30) mmol/L Anion Gap 11 mmol/L BUN 26 H (9-20) mg/dL Creatinine 1.20 (0.66-1.25) mg/dL Est GFR (CKD-EPI)AfAm 64 (>60 ml/min/1.73 sqM) Est GFR (CKD-EPI)NonAf 56 (>60 ml/min/1.73 sqM) Glucose 144 H (74-99) mg/dL Plasma Lactic Acid Ziggy 3.0 H* (0.7-2.0) mmol/L Calcium 9.2 (8.4-10.2) mg/dL Total Bilirubin 1.6 H (0.2-1.3) mg/dL AST 33 (17-59) U/L ALT 41 (21-72) U/L Alkaline Phosphatase 142 H (38-126) U/L Troponin I (0.000-0.034) ng/mL Total Protein 6.5 (6.3-8.2) g/dL Albumin 3.4 L (3.5-5.0) g/dL Amylase 39 (30-110) U/L Lipase 55 (23-300) U/L Urine Color Urine Appearance (Clear) Urine pH (5.0-8.0) Ur Specific [place] (1.001-1.035) Urine Protein (Negative) Urine Glucose (UA) (Negative) Urine Ketones (Negative) Urine Blood (Negative) Urine Nitrite (Negative) Urine Bilirubin (Negative) Urine Urobilinogen (<2.0) mg/dL Ur Leukocyte Esterase (Negative) 06/05/18 06/05/18 06/05/18 Range/Units 02:05 02:05 05:00 WBC (3.8-10.6) k/uL RBC (4.30-5.90) m/uL Hgb (13.0-17.5) gm/dL Hct (39.0-53.0) % MCV (80.0-100.0) fL MCH (25.0-35.0) pg MCHC (31.0-37.0) g/dL RDW (11.5-15.5) % Plt Count (150-450) k/uL Neutrophils % % Lymphocytes % % Monocytes % % Eosinophils % % Basophils % % Neutrophils # (1.3-7.7) k/uL Lymphocytes # (1.0-4.8) k/uL Monocytes # (0-1.0) k/uL Eosinophils # (0-0.7) k/uL Basophils # (0-0.2) k/uL Hypochromasia Macrocytosis PT 13.4 H (9.0-12.0) sec INR 1.3 H (<1.2) APTT 22.3 (22.0-30.0) sec Sodium (137-145) mmol/L Potassium (3.5-5.1) mmol/L Chloride (98-107) mmol/L Carbon Dioxide (22-30) mmol/L Anion Gap mmol/L BUN (9-20) mg/dL Creatinine (0.66-1.25) mg/dL Est GFR (CKD-EPI)AfAm (>60 ml/min/1.73 sqM) Est GFR (CKD-EPI)NonAf (>60 ml/min/1.73 sqM) Glucose (74-99) mg/dL Plasma Lactic Acid Ziggy (0.7-2.0) mmol/L Calcium (8.4-10.2) mg/dL Total Bilirubin (0.2-1.3) mg/dL AST (17-59) U/L ALT (21-72) U/L Alkaline Phosphatase (38-126) U/L Troponin I <0.012 (0.000-0.034) ng/mL Total Protein (6.3-8.2) g/dL Albumin (3.5-5.0) g/dL Amylase (30-110) U/L Lipase (23-300) U/L Urine Color Yellow Urine Appearance Clear (Clear) Urine pH 6.0 (5.0-8.0) Ur Specific [place] 1.018 (1.001-1.035) Urine Protein Negative (Negative) Urine Glucose (UA) Negative (Negative) Urine Ketones Negative (Negative) Urine Blood Negative (Negative) Urine Nitrite Negative (Negative) Urine Bilirubin Negative (Negative) Urine Urobilinogen <2.0 (<2.0) mg/dL Ur Leukocyte Esterase Negative (Negative) - EKG Data EKG Comments: EKG obtained at 01 56 shows sinus rhythm with occasional PVCs, prolonged QT interval. Ventricular rate is 70, ME interval 168, QRS duration 88, QT 428, QTC 462. No evidence of ST elevation or depression. (Leonor Gaspar) Disposition <Leonor Gaspar - Last Filed: 06/05/18 05:04> Decision Time: 05:35 <Jas Moss - Last Filed: 06/05/18 05:35> Clinical Impression: Abdominal pain Disposition: ADMITTED IP TO THIS HOSP Condition: Fair Referrals: Sage Parks MD [Primary Care Provider] - 1-2 days
[2018-06-05] MEDS ORDERED: fentaNYL (PF) 50 MCG/ML 2 ML AMP IVP STA (04:15)
[2018-06-05] MEDS ORDERED: metroNIDAZOLE-NS PMX 500 MG in SALINE 1 100ML.BAG IVPB ONE (04:30)
[2018-06-05 05:32] LABS: Appearance,Urine Clear (Clear); Bilirubin,Urine Negative (Negative); Blood,Urine Negative (Negative); Color,Urine Yellow; Glucose,Urine (UA) Negative (Negative); Ketones,Urine Negative (Negative); Leukocyte Esterase,Urine Negative (Negative); Nitrite,Urine Negative (Negative); Protein,Urine Negative (Negative); Specific Gravity,Urine 1.018 (1.001-1.035); Urobilinogen,Urine <2.0 mg/dL (<2.0)
[2018-06-05] MEDS ORDERED: NALOXONE 0.4 MG/ML 1 ML VIAL IV PRN (05:32)
[2018-06-05] MEDS ORDERED: MORPHINE SULFATE 2 MG/ML SYRINGE IV PRN (05:32)
[2018-06-05] MEDS ORDERED: ACETAMINOPHEN TAB 325 MG TAB PO PRN (05:32)
--- NOTE | 2018-06-05 05:52 | US ---
EXAM: US Abdomen Limited, Right Upper Quadrant CLINICAL HISTORY: Pain. TECHNIQUE: Real-time ultrasound of the right upper quadrant with image documentation. COMPARISON: Correlation made with CT dated 06/05/2018. FINDINGS: Liver: Liver measures 15.4 cm in length. Coarse echotexture. No intrahepatic bile duct dilation. Gallbladder: Cholelithiasis. No pericholecystic fluid. No gallbladder wall thickening. Gallbladder wall measures 2 mm. Unreliable sonographic Tabares's sign. Common bile duct: CBD measures 4 mm. No stones. No dilation. Pancreas: Unremarkable as visualized. Right kidney: Right kidney measures 11.4 cm in length. No hydronephrosis. Echogenic focus suggestive of nonobstructive calculus in right mid kidney measuring 10 mm. Free fluid: Mild perihepatic ascites. IMPRESSION: 1. Cholelithiasis. No gallbladder wall thickening or pericholecystic fluid to suggest acute cholecystitis. Unreliable sonographic Tabares's sign. Correlate clinically. 2. Nonobstructive right renal calculus. No hydronephrosis. 3. Mild perihepatic ascites.
[2018-06-05] MEDS: SODIUM CHLORIDE 0.9% 1,000 ML IV SCH ×2 (07:02→17:14)
[2018-06-05 07:25] LABS: Glucose,Whole Blood 142 mg/dL (75-99)
[2018-06-05] MEDS: PANTOPRAZOLE 40 MG/10 ML VIAL IV SCH (09:43)
--- NOTE | 2018-06-05 11:14 | CONS ---
CONSULTATION This is an 82-year-old male, well known to me. He presents to the emergency department with complaints of abdominal discomfort. It apparently started the day prior to admission. His primary care physician is Dr. Sage Parks. We have seen him in the past because of recurrent left-sided pleural effusion. I attempted a left-sided thoracentesis on him, but was not able to locate the fluid and then have Dr. Ariza from [facility] to do thoracentesis on him. He has had thoracentesis x2 by [facility] and is scheduled to have repeat thoracentesis tomorrow because of worsening and increased shortness of breath. Cytology from the fluid was negative. Microbiology I believe was also negative. In the emergency room, his pain was mostly epigastric in nature. He apparently did not have any vomiting, but he did feel nauseated. His bowel movements apparently had been normal. Denies any blood or black tarry stools. He was not having any urinary complaints as well. The other issue he complained of , of course, was having difficulty breathing, especially when he was lying flat. He denied any fever, chills. There is no chest pain or chest discomfort. There was no nausea. There was no vomiting or diarrhea as I mentioned. I was consulted primarily for a left-sided pleural effusion, which looks to be about the same as it was before. He is apparently already scheduled to have a thoracentesis done by [facility] tomorrow. MEDICATIONS: His home medications include eye drops, Glucophage, Coumadin, Lopressor, Pravachol, Flomax, low-dose aspirin, omega-3 fatty acids. He also was previously on Lasix. ALLERGIES: Allergies include PENICILLIN, CODEINE and TAPE. MEDICAL HISTORY: Medical history is positive for recurrent left-sided pleural effusion, status post thoracentesis x2, diabetes mellitus, deep venous thrombosis, hyperlipidemia, DJD, pulmonary embolism, coronary artery disease, shingles, and a whole host of other medical problems. SURGICAL HISTORY: Most notably includes bypass grafting. The patient has also had corneal transplant. SOCIAL HISTORY: Social history is positive for previous tobacco use. No current smoking. Denies any alcohol use or illicit drug use. FAMILY HISTORY: Family history is positive for cancer of the skin and bone. REVIEW OF SYSTEMS: CONSTITUTIONAL: Negative. NEUROLOGIC: Negative. HEENT: Negative. CARDIOVASCULAR: Negative. PULMONARY: Shortness of breath particularly when he is lying flat/orthopnea. GI: Abdominal discomfort, somewhat improved. : Negative. RHEUMATOLOGIC: Negative. IMMUNOLOGIC: Negative. ENDOCRINOLOGIC: Negative. DERMATOLOGIC: Negative. PHYSICAL EXAMINATION: Current vital signs are reviewed. Temperature 97.5, heart rate is 70, respiratory rate 18, blood pressure 116/67, mean 83 and 2 L saturation 96%. He really does not appear to be any distress. He is lying almost flat in bed. He is not demonstrating any signs or symptoms of difficulty breathing. There is no conversational dyspnea. There is no audible wheezing. No use of accessory muscles. His abdominal pain as he mentioned is improved. HEENT examination is grossly unremarkable. NECK: Supple. Full range of motion. No adenopathy. Cardiovascular examination reveals regular rhythm and rate. S1, S2 normal. There is no murmur. Lungs reveal diminished breath sounds at the left base. There is dullness at the left base. The right lung is clear. Abdomen is mildly distended. Bowel sounds are noted. I do not really sense a fluid wave. No masses. Mild tenderness on deep palpation. Extremities are intact. No cyanosis, clubbing, or edema. Skin without rash. Neurologic examination is brief but nonfocal. LABS: Labs are reviewed. White count 4.9, hemoglobin 12.1, hematocrit 37.5, platelet count 62,000. PT 13.4, INR 1.3, PTT 22.3. Sodium and potassium normal. Chloride 108, CO2 normal and anion gap normal. BUN and creatinine were 26 and 1.20. Lactic acid was 3 and then came down to 2. Calcium normal. Bilirubin 1.6, alkaline phosphatase 142. Albumin 3.4. Urine was clean. Gallbladder ultrasound was essentially negative. There was some stones and gallbladder wall thickening, but there was no acute cholecystitis. Chest x-ray from prior was evaluated. In addition, he had a thoracic aorta CT, which again demonstrated either consolidation or effusion at the left lung base. It appears that whatever is going on his left chest it was more complicated and that was likely the reason why I was not able to obtain any fluid as there is likely septations and loculations in the left chest area. As I mentioned laboratory data is reviewed. Microbiology is negative. X-rays are reviewed. He had a thoracentesis performed by Dr. Ariza on March 22 and May 03. My attempted thoracentesis was done on March 18. ASSESSMENT: 1. Chronic left-sided pleural effusion, status post thoracentesis x3 with the fluid being nondiagnostic at this point. 2. Shortness of breath and mild orthopnea secondary to left-sided effusion. 3. Rule out chronic liver disease. 4. Diabetes mellitus. 5. Deep venous thrombosis. 6. Hyperlipidemia. 7. Degenerative joint disease. 8. History of pulmonary embolism. 9. Status post 5-vessel bypass grafting, 2016. 10.History of congestive heart failure. 11.Hypertension. 12.Mild ascites. 13.Acute abdominal pain, somewhat improved. PLAN: The patient is scheduled to have a repeat thoracentesis done by Dr. Ariza I believe tomorrow. From my perspective, I will review the labs and medications. The patient's previous fluid cytology was negative. Microbiology at this point as I recall was all negative as well. I would probably send the fluid again for analysis. This will include a chemistry such as LDH, protein, glucose. Microbiology including routine Gram stain and culture, cell count, differential, and cytology. Additional recommendations and suggestions are forthcoming. We will continue to follow. MMODL / IJN: [id number] /
[2018-06-05] MEDS: IOPAMIDOL-300 CONTRAST 30 ML VIAL (ORAL USE) PO PRN ×2 (12:26→13:26)
--- NOTE | 2018-06-05 12:54 | P.GSCN ---
History of Present Illness Consult date: 06/05/18 Reason for Consult: abdominal pain Requesting physician: Jas Moss History of present illness: CHIEF COMPLAINT: abdominal pain HISTORY OF PRESENT ILLNESS: 82-year-old female who presented to the emergency room with a chief complaint of abdominal pain. Patient reports he began having right and left lower quadrant abdominal pain started approximately 10:30 last night. He denies any right upper quadrant pain. He states the pain was so severe he came to the emergency room for further evaluation. He denies nausea. He denies vomiting. He reports his last bowel movement was yesterday which was normal in characteristics. Patient reports no previous history of EGD. Reports last colonoscopy was greater than 5 years ago and reports it was normal. Patient very hesitant to answer questions regarding previous procedures especially when asked about colonoscopy. Patient stated "I don't know why you are asking me these questions but I'm not having anything else done to me". PAST MEDICAL HISTORY: See list. PAST SURGICAL HISTORY: See list. MEDICATIONS: See list. ALLERGIES: See list. SOCIAL HISTORY: No illicit drug use. REVIEW OF SYSTEMS: CONSTITUTIONAL: Denies fever or chills. HEENT: Denies blurred vision, vision changes, or eye pain. Denies hemoptysis ENDOCRINE: Denies heat or cold intolerance. CARDIOVASCULAR: Denies chest pain or pressure. RESPIRATORY: No shortness of breath. GASTROINTESTINAL: Reports right and left lower quadrant abdominal pain. Denies nausea or vomiting. NEURO: Denies history of seizures. PSYCH: No depression or suicidal ideation HEMATOLOGIC: Denies bleeding disorders. LYMPHATIC: The patient denies any lumps and bumps around the neck. GENITOURINARY: Denies any blood in urine or increased urinary frequency. MUSCULOSKELETAL: Denies myalgias. Denies joint swelling. Denies decreased range of motion beyond patients baseline. SKIN: Denies pruitis. Denies rash. PHYSICAL EXAM: VITAL SIGNS: Currently stable. GENERAL: Well-developed in no acute distress. HEENT: No sclera icterus. Extraocular movements grossly intact. Moist buccal mucosa. Head is atraumatic, normocephalic. Hears conversational speech. No nasal drainage. NECK: Supple without lymphadenopathy. CHEST: Non-labored respirations and equal bilateral excursions. CARDIOVASCULAR: Regular rate with regular rhythm. Palpable 2+ radial pulses. ABDOMEN: Soft. Nondistended. Severe pain to palpation to right and left lower quadrants. MUSCULOSKELETAL: No clubbing, cyanosis or edema. NEUROLOGIC: No focal or lateralizing signs. Cranial nerves II through XII grossly intact. PSYCH: Appropriate affect. Alert and oriented to person, place and time. SKIN: Well perfused. Good skin turgor. IMAGING: Ultrasound abdomen: Cholelithiasis. No gallbladder wall thickening. No pericholecystic fluid. No findings to suggest acute cholecystitis. Unreliable sonographic Tabares sign. ASSESSMENT: 1. Right and left lower quadrant abdominal pain, etiology unclear 2. Cholelithiasis, no findings to suggest acute cholecystitis PLAN: 1. NPO 2. CT abdomen/pelvis with oral contrast Nurse practitioner note has been reviewed by physician. Signing provider agrees with the documented findings, assessment, and plan of care. Past Medical History Past Medical History: Diabetes Mellitus, Deep Vein Thrombosis (DVT), Eye Disorder, Hyperlipidemia, Osteoarthritis (OA), Prostate Disorder, Pulmonary Embolus (PE) Additional Past Medical History / Comment(s): Three-vessel coronary artery disease, shingles, History of Any Multi-Drug Resistant Organisms: None Reported Past Surgical History: Coronary Bypass/CABG Additional Past Surgical History / Comment(s): corneal transplant, thoracentesis times 2 Past Anesthesia/Blood Transfusion Reactions: No Reported Reaction Past Psychological History: No Psychological Hx Reported Additional Psychological History / Comment(s): pt lives alone. no home care, no medical equipment Smoking Status: Never smoker Past Alcohol Use History: None Reported Additional Past Alcohol Use History / Comment(s): smoked a little as teen Past Drug Use History: None Reported - Past Family History Mother Family Medical History: No Reported History Brother(s) Family Medical History: Cancer Additional Family Medical History / Comment(s): bone cancer Father Family Medical History: Cancer Additional Family Medical History / Comment(s): skin/bone cancer Medications and Allergies Home Medications Medication Instructions Recorded Confirmed Type Dorzolamide 2% [Trusopt 2%] 1 drops LEFT EYE TID 08/06/16 06/05/18 History Latanoprost [Xalatan 0.005%] 1 drop BOTH EYES HS 08/09/16 06/05/18 History metFORMIN HCL [Glucophage] 500 mg PO AC-TID 08/09/16 06/05/18 History Warfarin Sodium [Coumadin] 7.5 mg PO DAILY 10/29/17 06/05/18 History Metoprolol Tartrate [Lopressor] 50 mg PO BID 03/16/18 06/05/18 History Pravastatin Sodium [Pravachol] 40 mg PO HS 03/16/18 06/05/18 History Tamsulosin [Flomax] 0.4 mg PO DAILY 03/16/18 06/05/18 History Aspirin EC [Ecotrin Low Dose] 81 mg PO DAILY 03/17/18 06/05/18 History Pound-3 Fatty Acids/Fish Oil [Fish 1 cap PO TID 04/26/18 06/05/18 History Oil 1,000 mg Softgel] Prednisolone Acetate/Pf 1 drop LEFT EYE DAILY 04/26/18 06/05/18 History [Prednisolone Acet 1% Eye Drop] Allergies Allergy/AdvReac Type Severity Reaction Status Date / Time Penicillins Allergy Rash/Hives Verified 06/05/18 07:46 codeine AdvReac Hallucinati Verified 06/05/18 07:46 ons tape AdvReac Rash/Hives Uncoded 06/05/18 01:36 Surgical - Exam Vital Signs Temp Pulse Resp BP Pulse Ox 97.9 F 70 20 130/64 97 06/05/18 01:31 06/05/18 01:31 06/05/18 01:31 06/05/18 01:31 06/05/18 01:31 Results - Labs 06/05/18 02:05 06/05/18 02:05 Abnormal Lab Results - Last 24 Hours (Table) 06/05/18 06/05/18 06/05/18 Range/Units 02:05 02:05 02:05 RBC 3.72 L (4.30-5.90) m/uL Hgb 12.1 L (13.0-17.5) gm/dL Hct 37.5 L (39.0-53.0) % MCV 100.8 H (80.0-100.0) fL RDW 15.6 H (11.5-15.5) % Plt Count 62 L (150-450) k/uL PT (9.0-12.0) sec INR (<1.2) Chloride 108 H (98-107) mmol/L BUN 26 H (9-20) mg/dL Glucose 144 H (74-99) mg/dL POC Glucose (mg/dL) (75-99) mg/dL Plasma Lactic Acid Ziggy 3.0 H* (0.7-2.0) mmol/L Total Bilirubin 1.6 H (0.2-1.3) mg/dL Alkaline Phosphatase 142 H (38-126) U/L Albumin 3.4 L (3.5-5.0) g/dL 06/05/18 06/05/18 Range/Units 02:05 07:23 RBC (4.30-5.90) m/uL Hgb (13.0-17.5) gm/dL Hct (39.0-53.0) % MCV (80.0-100.0) fL RDW (11.5-15.5) % Plt Count (150-450) k/uL PT 13.4 H (9.0-12.0) sec INR 1.3 H (<1.2) Chloride (98-107) mmol/L BUN (9-20) mg/dL Glucose (74-99) mg/dL POC Glucose (mg/dL) 142 H (75-99) mg/dL Plasma Lactic Acid Ziggy (0.7-2.0) mmol/L Total Bilirubin (0.2-1.3) mg/dL Alkaline Phosphatase (38-126) U/L Albumin (3.5-5.0) g/dL Diabetes panel 06/05/18 Range/Units 02:05 Sodium 143 (137-145) mmol/L Potassium 4.4 (3.5-5.1) mmol/L Chloride 108 H (98-107) mmol/L Carbon Dioxide 24 (22-30) mmol/L BUN 26 H (9-20) mg/dL Creatinine 1.20 (0.66-1.25) mg/dL Glucose 144 H (74-99) mg/dL Calcium 9.2 (8.4-10.2) mg/dL AST 33 (17-59) U/L ALT 41 (21-72) U/L Alkaline Phosphatase 142 H (38-126) U/L Total Protein 6.5 (6.3-8.2) g/dL Albumin 3.4 L (3.5-5.0) g/dL Calcium panel 06/05/18 Range/Units 02:05 Calcium 9.2 (8.4-10.2) mg/dL Albumin 3.4 L (3.5-5.0) g/dL Pituitary panel 06/05/18 Range/Units 02:05 Sodium 143 (137-145) mmol/L Potassium 4.4 (3.5-5.1) mmol/L Chloride 108 H (98-107) mmol/L Carbon Dioxide 24 (22-30) mmol/L BUN 26 H (9-20) mg/dL Creatinine 1.20 (0.66-1.25) mg/dL Glucose 144 H (74-99) mg/dL Calcium 9.2 (8.4-10.2) mg/dL Adrenal panel 06/05/18 Range/Units 02:05 Sodium 143 (137-145) mmol/L Potassium 4.4 (3.5-5.1) mmol/L Chloride 108 H (98-107) mmol/L Carbon Dioxide 24 (22-30) mmol/L BUN 26 H (9-20) mg/dL Creatinine 1.20 (0.66-1.25) mg/dL Glucose 144 H (74-99) mg/dL Calcium 9.2 (8.4-10.2) mg/dL Total Bilirubin 1.6 H (0.2-1.3) mg/dL AST 33 (17-59) U/L ALT 41 (21-72) U/L Alkaline Phosphatase 142 H (38-126) U/L Total Protein 6.5 (6.3-8.2) g/dL Albumin 3.4 L (3.5-5.0) g/dL
--- NOTE | 2018-06-05 14:19 | CT ---
EXAMINATION TYPE: CT abdomen pelvis wo con DATE OF EXAM: 06/05/2018 COMPARISON: 06/05/2018 HISTORY: gross hematuria CT DLP: 1313.9 mGycm Examination of the solid and hollow viscera is limited given the lack of contrast. FINDINGS: LUNG BASES: Persistent left basilar infiltrate and/or atelectasis with a moderate to large left-sided pleural effusion. LIVER/GB: Hepatomegaly with the peripheral nodular contour noted of the liver compatible with cirrhot ic liver disease. There is evidence of cholelithiasis. PANCREAS: No pancreatic mass identified. No inflammatory process seen. SPLEEN: Splenomegaly measuring 13.9 cm craniocaudal dimension. No intrasplenic lesions seen. ADRENALS: No adrenal nodules identified. No evidence for thickening. KIDNEYS: No evidence for renal mass. Nonobstructing nephrolithiasis noted. Contrast within the renal collecting system from prior CT. Thornton catheter within the urinary bladder as well as contrast. No hy dronephrosis. BOWEL: Appendix has a normal appearance. No evidence of bowel obstruction. No inflammatory process. Lymph nodes: No evidence for adenopathy greater than 1 cm. Abdominal aorta: Atheromatous changes seen. No evidence for aneurysm. Genital organs: No significant abnormality. Other: Small amount of ascites noted. IMPRESSION: 1. Cirrhotic liver disease with splenomegaly and ascites. 2. Moderate to large left basilar effusion with underlying atelectasis and/or infiltrate. 3. Ascites. 4. No evidence for abscess or free air. 5. Nonobstructing nephrolithiasis bilaterally.
[2018-06-05] MEDS: ASPIRIN 81 MG PO SCH (17:58)
[2018-06-05] MEDS: prednisoLONE ACETATE 1% OPHTH DROPS 5 ML BTL LEFT EYE SCH (17:59)
[2018-06-05] MEDS: DORZOLAMIDE HCL 2% DROPS 10 ML BTL LEFT EYE SCH ×2 (17:59→21:45)
[2018-06-05] MEDS ORDERED: WARFARIN 7.5 MG TAB PO SCH (18:00)
[2018-06-05] MEDS ORDERED: WARFARIN 0.5 MG TAB PO ONE (18:00)
[2018-06-05] MEDS: TAMSULOSIN 0.4 MG CAP.ER.24H PO SCH (18:10)
--- NOTE | 2018-06-05 18:27 | HP ---
HISTORY AND PHYSICAL DATE OF ADMISSION: 06/05/2018 DATE OF SERVICE: 06/05/2018 PRESENTING COMPLAINT: Lower abdominal pain. HISTORY OF PRESENTING COMPLAINT: This is a pleasant 82-year-old patient of Dr. Parks whose chronic stable medical conditions include congestive heart failure from diastolic dysfunction, coronary artery disease, osteoarthritis, BPH, hyperlipidemia, paroxysmal atrial fibrillation. The patient around 10:30 last night developed what he described as severe abdominal pain going across the lower abdomen. It did not radiate anywhere, stayed there for some time before he came down to the hospital. Then the pain resolved. Patient normally has 2 bowel movements a day. Patient has chronic urinary frequency, going every few minutes. The patient had a Thornton catheter placed in the ER; only about 250 mL was obtained. There was some blood in the urine. It may be noted that the patient is on Coumadin. There was no nausea or vomiting. No fever. No chills. Patient has chronic left pleural effusion that has been tapped a few times; exact cause is unknown. Dr. Aviles from Pulmonary saw the patient for the same earlier. The patient feels better now. REVIEW OF SYSTEMS: CONSTITUTIONAL: None. HEENT: None. RESPIRATORY: Some baseline shortness of breath. CARDIOVASCULAR: None. GASTROINTESTINAL: As above. GENITOURINARY: As above. MUSCULOSKELETAL: Some pain in the joints. DERMATOLOGICAL: None. HEMATOLOGICAL: None. LYMPHATICS: None. PSYCHIATRY: None. NEUROLOGICAL: None. PAST MEDICAL HISTORY: 1. Congestive heart failure with diastolic dysfunction. 2. Coronary artery disease. 3. Osteoarthritis. 4. BPH. 5. Hyperlipidemia. 6. Paroxysmal atrial fibrillation. PAST SURGICAL HISTORY: 1. Coronary artery bypass. 2. Corneal transplant. 3. Thoracentesis x2. SOCIAL HISTORY: Does not smoke or drink alcohol. Lives by himself. Retired. FAMILY HISTORY: Bone cancer. HOME MEDICATIONS: 1. Glucophage 500 mg p.o. before meals t.i.d. 2. Coumadin 7.5 p.o. daily. 3. Flomax 0.4 mg p.o. daily. 4. Prednisolone acetate 1% one drop to left eye daily. 5. Pravachol 40 mg at bedtime. 6. Fish oil 1000 mg one capsule p.o. t.i.d. 7. Lopressor 50 mg b.i.d. 8. Xalatan 0.005% one drop to both eyes at bedtime. 9. Trusopt 2% one drop to left eye t.i.d. 10.Aspirin 81 mg p.o. daily. ALLERGIES: 1. PENICILLIN. 2. CODEINE. 3. TAPE. PHYSICAL EXAMINATION: Temperature 97.9, pulse 70, respiration 20, blood pressure 130/64, pulse ox 97% on room air. GENERAL APPEARANCE: Well built; BMI 34.4. Sitting at the edge of the bed, comfortable, with a Thornton in place. EYES: Pupils equal. Conjunctivae normal. HEENT: External appearance of nose and ears normal. Oral cavity normal. NECK: JVD not raised. Mass not palpable. RESPIRATORY: Effort normal. LUNGS: Slightly decreased breath sounds. CARDIOVASCULAR: First and second sounds normal. No edema. ABDOMEN: Soft, non-tender. Liver and spleen not palpable. Thornton catheter in place with slightly bloody urine. LYMPHATIC: No lymph node palpable in neck or axillae. PSYCHIATRY: Alert and oriented x3. Mood and affect normal. NEUROLOGICAL: Pupils equal. Cranial nerves grossly intact. Power and sensation grossly intact. INVESTIGATIONS: Thoracoaortic CT shows large left pleural effusion, DJD of the spine, gallstones, some splenomegaly, bilateral kidney stones. Ultrasound of the gallbladder shows also gallstones. CT scan of the abdomen and pelvis shows a cirrhotic liver with splenomegaly and ascites, moderate to large left basal effusion, ascites, non-obstructive nephrolithiasis bilaterally. ASSESSMENT: 1. Patient presented with acute lower abdominal pain which was self-limiting after a few hours; could be a bladder spasm or even a bowel spasm. No fever, no chills, no white count. 2. Cirrhotic liver with signs of portal hypertension and that is hepatosplenomegaly with secondary ascites, cause unknown. 3. Chronic congestive heart failure from diastolic dysfunction. Ejection fraction 55% to 60%. 4. Coronary artery disease. 5. Primary osteoarthritis. 6. Benign prostatic hypertrophy. 7. Hyperlipidemia. 8. Urinary frequency with evidence of benign prostatic hypertrophy. Patient does take Flomax. 9. Bilateral nephrolithiasis, asymptomatic. 10.Gallstones, asymptomatic. Patient has no upper abdominal tenderness and no tenderness in the right upper quadrant. PLAN: Dr. Aviles was consulted for the left pleural effusion. Patient was due for repeat thoracentesis tomorrow. Will flush the bladder and see if we can discontinue the Thornton catheter and check a post-void residual. Patient also was seen by the general surgical team. Care was discussed in detail with the patient and son at the bedside. MMKRISTEN / ZHENG: [id number] /
[2018-06-05] MEDS ORDERED: PRAVASTATIN SODIUM 40 MG TAB PO SCH (21:00)
[2018-06-05] MEDS ORDERED: LATANOPROST 0.005% OPHTH DROPS 2.5 ML BTL BOTH EYES SCH (21:00)
[2018-06-05] MEDS: METOPROLOL TARTRATE 50 MG TAB PO SCH (21:45)
[2018-06-05] MEDS: Omega-3 Fatty Acids/Fish Oil [Fish Oil 1,000 Mg Softgel] 1 CAP PO SCH (21:46)
[2018-06-06] MEDS: SODIUM CHLORIDE 0.9% 1,000 ML IV SCH (02:08)
[2018-06-06 07:21] LABS: Glucose,Whole Blood 121 mg/dL (75-99)
[2018-06-06 08:11] LABS: Basophils % (A) 0 %; Eosinophils # (A) 0.1 k/uL (0-0.7); Eosinophils % (A) 3 %; HGB 11.5 gm/dL (13.0-17.5); Hypochromasia Slight; Lymphocytes # (A) 1.1 k/uL (1.0-4.8); Lymphocytes % (A) 27 %; MCH 32.5 pg (25.0-35.0); MCV 101.5 fL (80.0-100.0); Macrocytosis Slight; Monocytes # (A) 0.3 k/uL (0-1.0); Monocytes % (A) 7 %; Neutrophils # (A) 2.4 k/uL (1.3-7.7); Neutrophils % (A) 61 %; RBC 3.55 m/uL (4.30-5.90); RDW 15.4 % (11.5-15.5)
[2018-06-06 08:20] LABS: Platelet Count 65 k/uL (150-450)
[2018-06-06 08:34] LABS: Albumin 2.9 g/dL (3.5-5.0); Calcium 9.1 mg/dL (8.4-10.2); Potassium 4.3 mmol/L (3.5-5.1); Total Bilirubin 2.8 mg/dL (0.2-1.3); Total Protein 5.8 g/dL (6.3-8.2)
--- NOTE | 2018-06-06 10:12 | XR ---
EXAMINATION TYPE: XR chest 1V portable DATE OF EXAM: 06/06/2018 COMPARISON: 05/03/2018 HISTORY: Post left thoracentesis. TECHNIQUE: Single frontal view of the chest is obtained. FINDINGS: There is persistent left-sided consolidation and pleural effusion with no pneumothorax. Po stsurgical changes are seen in the heart size is stable. Tiny right pleural effusion suggested. IMPRESSION: Left-sided consolidation and pleural effusion persist with no sizable pneumothorax.
[2018-06-06 10:26] VITALS: RESP 16
--- NOTE | 2018-06-06 10:27 | P.PN ---
Subjective Progress Note Date: 06/06/18 CHIEF COMPLAINT: abdominal pain HISTORY OF PRESENT ILLNESS: Patient examined this morning at the bedside. Patient states his abdominal pain has completely resolved. He denies nausea or vomiting. He is requesting to have his diet advanced. He is scheduled to have thoracentesis performed today. PHYSICAL EXAM: VITAL SIGNS: Currently stable. GENERAL: Well-developed in no acute distress. HEENT: No sclera icterus. Extraocular movements grossly intact. Moist buccal mucosa. Head is atraumatic, normocephalic. Hears conversational speech. No nasal drainage. NECK: Supple without lymphadenopathy. CHEST: Non-labored respirations and equal bilateral excursions. CARDIOVASCULAR: Regular rate with regular rhythm. Palpable 2+ radial pulses. ABDOMEN: Soft. Nondistended. Nontender. Positive bowel sounds. MUSCULOSKELETAL: No clubbing, cyanosis or edema. NEUROLOGIC: No focal or lateralizing signs. Cranial nerves II through XII yesica sly intact. PSYCH: Appropriate affect. Alert and oriented to person, place and time. SKIN: Well perfused. Good skin turgor. ASSESSMENT: 1. Right and left lower quadrant abdominal pain, etiology unclear, resolved 2. Cholelithiasis, no findings to suggest acute cholecystitis PLAN: 1. Patient may begin heart healthy diet after thoracentesis 2. Patient is stable from a surgical perspective 3. Patient may follow up with Dr. Ho outpatient for cholelithiasis Nurse practitioner note has been reviewed by physician. Signing provider agrees with the documented findings, assessment, and plan of care. Objective - Vital Signs Vital signs: Vital Signs Temp 97.6 F 06/06/18 09:27 Pulse 49 L 06/06/18 09:27 Resp 14 06/06/18 09:27 BP 105/57 06/06/18 09:27 Pulse Ox 98 06/06/18 09:27 Intake & Output 06/05/18 06/06/18 06/06/18 18:59 06:59 18:59 Output Total 668 Balance -668 Output: Urine 450 Post Void Residual 218 Other: # Voids 2 - Labs CBC & Chem 7: 06/06/18 07:25 06/06/18 07:25 Labs: Abnormal Lab Results - Last 24 Hours (Table) 06/06/18 06/06/18 06/06/18 Range/Units 07:15 07:25 07:25 RBC 3.55 L (4.30-5.90) m/uL Hgb 11.5 L (13.0-17.5) gm/dL Hct 36.0 L (39.0-53.0) % MCV 101.5 H (80.0-100.0) fL Plt Count 65 L (150-450) k/uL Chloride 111 H (98-107) mmol/L BUN 21 H (9-20) mg/dL Glucose 121 H (74-99) mg/dL POC Glucose (mg/dL) 121 H (75-99) mg/dL Total Bilirubin 2.8 H (0.2-1.3) mg/dL Total Protein 5.8 L (6.3-8.2) g/dL Albumin 2.9 L (3.5-5.0) g/dL Microbiology - Last 24 Hours (Table) 06/05/18 03:38 Blood Culture - Preliminary Blood No Growth after 24 hours
--- NOTE | 2018-06-06 10:35 | P.CONS ---
History of Present Illness - Reason for Consult Consult date: 06/06/18 abdominal pain Requesting physician: Gordon Long - Chief Complaint abdominal pain - History of Present Illness 82-year-old gentleman with a past medical history of chronic thrombocytopenia, pleural effusions requiring thoracentesis 2 in the last 3-4 months, CHF, CAD, BPH, paroxysmal atrial fibrillation maintained on Coumadin. Patient presented with mixed abdominal pain upper and lower discomfort without fever chills hematemesis hematochezia melena. He underwent thoracentesis today just under 1 L removal and now reports resolution of his abdominal pain. Computed tomography scan reported an enlarged liver cirrhotic surface with ascites. Ultrasound abdomen cholelithiasis CBD 4 mm. Liver length 15.4 cm. Coarse echotexture. No bile duct dilatation. Patient denies history of known cirrhotic disease or EtOH abuse. No history of hepatitis. Hepatitis screen and 2017 was nonreactive. White count 4-4.9. Hemoglobin 11.5-12.1. MCV 100-101. Platelet 62-65,000. INR 1.3. Total bilirubin 1.6-2.8. AST 33. ALT 41. AP 142. Lipase 55. Albumin 3.4. BUN 26. Creatinine 1.2. When reviewing prior medical chemistries JULIANNA screen negative. Review of Systems Constitutional: Denies fever, chills, sweats, weight gain, or loss. HEENT: Negative for migraines, blurred vision or loss, earaches, drainage, tinnitus, oral mucosal lesions, dysphagia, or odynophagia. Cardiac: Negative for chest pain, arrhythmias, or palpitation. Respiratory: Negative for shortness of breath, hemoptysis, cough, or sputum production. Gastrointestinal: See HPI for pertinent findings. Genitourinary: Negative for hematuria, urgency, frequency, polyuria, dysuria, or penile discharge. Musculoskeletal: Negative for muscle aches, swelling, arthritis, and arthralgias. Neurologic: Negative for stroke or TIA. Endocrine: Negative for thyroid problems. Skin: Negative for rash or itching. Psychiatric: Negative history for depression and anxiety Past Medical History Past Medical History: Diabetes Mellitus, Deep Vein Thrombosis (DVT), Eye Disorder, Hyperlipidemia, Osteoarthritis (OA), Prostate Disorder, Pulmonary Embolus (PE) Additional Past Medical History / Comment(s): Three-vessel coronary artery disease, shingles, History of Any Multi-Drug Resistant Organisms: None Reported Past Surgical History: Coronary Bypass/CABG Additional Past Surgical History / Comment(s): corneal transplant, thoracentesis times 2 Past Anesthesia/Blood Transfusion Reactions: No Reported Reaction Past Psychological History: No Psychological Hx Reported Additional Psychological History / Comment(s): pt lives alone. no home care, no medical equipment Smoking Status: Never smoker Past Alcohol Use History: None Reported Additional Past Alcohol Use History / Comment(s): smoked a little as teen Past Drug Use History: None Reported - Past Family History Mother Family Medical History: No Reported History Brother(s) Family Medical History: Cancer Additional Family Medical History / Comment(s): bone cancer Father Family Medical History: Cancer Additional Family Medical History / Comment(s): skin/bone cancer Medications and Allergies Home Medications Medication Instructions Recorded Confirmed Type Dorzolamide 2% [Trusopt 2%] 1 drops LEFT EYE TID 08/06/16 06/05/18 History Latanoprost [Xalatan 0.005%] 1 drop BOTH EYES HS 08/09/16 06/05/18 History metFORMIN HCL [Glucophage] 500 mg PO AC-TID 08/09/16 06/05/18 History Warfarin Sodium [Coumadin] 7.5 mg PO DAILY 10/29/17 06/05/18 History Metoprolol Tartrate [Lopressor] 50 mg PO BID 03/16/18 06/05/18 History Pravastatin Sodium [Pravachol] 40 mg PO HS 03/16/18 06/05/18 History Tamsulosin [Flomax] 0.4 mg PO DAILY 03/16/18 06/05/18 History Aspirin EC [Ecotrin Low Dose] 81 mg PO DAILY 03/17/18 06/05/18 History [place]-3 Fatty Acids/Fish Oil [Fish 1 cap PO TID 04/26/18 06/05/18 History Oil 1,000 mg Softgel] Prednisolone Acetate/Pf 1 drop LEFT EYE DAILY 04/26/18 06/05/18 History [Prednisolone Acet 1% Eye Drop] Allergies Allergy/AdvReac Type Severity Reaction Status Date / Time Penicillins Allergy Rash/Hives Verified 06/05/18 07:46 codeine AdvReac Hallucinati Verified 06/05/18 07:46 ons tape AdvReac Rash/Hives Uncoded 06/05/18 01:36 Physical Exam Vitals: Vital Signs Temp Pulse Resp BP BP Pulse Ox 06/06/18 09:27 97.6 F 49 L 14 105/57 98 06/06/18 07:14 97.9 F 53 L 16 126/76 94 L 06/05/18 23:25 98.2 F 44 L 18 98/53 94 L 06/05/18 19:31 97.9 F 59 L 16 137/72 94 L 06/05/18 14:07 97.5 F L 60 16 145/74 96 Intake and Output 06/05/18 06/06/18 06/06/18 22:59 06:59 14:59 Output Total 218 Balance -218 Output: Post Void Residual 218 Other: # Voids 2 General appearance: The patient is alert, oriented, in no acute distress. HET: Head is normocephalic and atraumatic. Pupils are equal and reactive. Oropharynx is clear without lesions. Neck: Supple without lymphadenopathy. Trachea midline. Heart: S1 S2. Regular rate and rhythm. Lungs: No crackles or wheezes are heard. Abdomen: Soft, nontender, mildly distended with mild ascites with bowel sounds. No peritoneal signs. No palpable organomegaly or masses. Extremities: +2 bilateral lower extremity edema. Radial and pedal pulses are 2/4 bilaterally. Neurological: No focal deficits. Strength and sensation are grossly intact. Results CBC & Chem 7: 06/06/18 07:25 06/06/18 07:25 Labs: Abnormal Lab Results - Last 24 Hours (Table) 06/06/18 06/06/18 06/06/18 Range/Units 07:15 07:25 07:25 RBC 3.55 L (4.30-5.90) m/uL Hgb 11.5 L (13.0-17.5) gm/dL Hct 36.0 L (39.0-53.0) % MCV 101.5 H (80.0-100.0) fL Plt Count 65 L (150-450) k/uL Chloride 111 H (98-107) mmol/L BUN 21 H (9-20) mg/dL Glucose 121 H (74-99) mg/dL POC Glucose (mg/dL) 121 H (75-99) mg/dL Total Bilirubin 2.8 H (0.2-1.3) mg/dL Total Protein 5.8 L (6.3-8.2) g/dL Albumin 2.9 L (3.5-5.0) g/dL Microbiology - Last 24 Hours (Table) 06/05/18 03:38 Blood Culture - Preliminary Blood No Growth after [address] scan - abdomen: report reviewed (Dr. Lucero) US - abdomen: report reviewed (Dr. 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 Differentials to consider but not excluded chronic autoimmune liver disease possible nonalcoholic steatohepatitis nonalcoholic fatty liver disease. Current Visit: Yes Status: Acute Code(s): R10.9 - UNSPECIFIED ABDOMINAL PAIN SNOMED Code(s): 76555634 (2) Cirrhosis of liver Current Visit: Yes Status: Acute Code(s): K74.60 - UNSPECIFIED CIRRHOSIS OF LIVER SNOMED Code(s): 76105426 (3) Ascites of liver Current Visit: Yes Status: Acute Code(s): R18.8 - OTHER ASCITES SNOMED Code(s): 150674824 (4) Pleural effusion Current Visit: Yes Status: Acute Code(s): J90 - PLEURAL EFFUSION, NOT ELSEWHERE CLASSIFIED SNOMED Code(s): 33680483 (5) Thrombocytopenia Current Visit: Yes Status: Acute Code(s): D69.6 - THROMBOCYTOPENIA, UNSPECIFIED SNOMED Code(s): 553978600 (6) Coronary artery disease Current Visit: No Status: Acute Code(s): I25.10 - ATHSCL HEART DISEASE OF [place] CORONARY ARTERY W/O ANG PCTRS SNOMED Code(s): 87081085 (7) History of deep vein thrombosis Current Visit: No Status: Acute Code(s): Z86.718 - PERSONAL HISTORY OF OTHER VENOUS THROMBOSIS AND EMBOLISM SNOMED Code(s): 512539891 (8) History of pulmonary embolus (PE) Current Visit: No Status: Acute Code(s): Z86.711 - PERSONAL HISTORY OF PULMONARY EMBOLISM SNOMED Code(s): 888333415 (9) Paroxysmal atrial fibrillation Current Visit: No Status: Acute Code(s): I48.0 - PAROXYSMAL ATRIAL FIBRILLATION SNOMED Code(s): 299933163 (10) Thrombocytopenia Current Visit: No Status: Acute Priority: Medium Code(s): D69.6 - THROMBOCYTOPENIA, UNSPECIFIED SNOMED Code(s): 760146424 Plan: 1. Patient is status post thoracentesis. Agreeable for discharge from a GI standpoint; paracentesis declined at this time. Patient is not interested in pursuing an outpatient GI workup for suspected underlying nonalcoholic liver disease but understands recommendations. Patient was advised to follow up in the office in 1-2 weeks for reevaluation. Serologic chronic liver disease requested. Thank you for this kind referral and the opportunity to participate in the care of your patient. This consultation was discussed with Dr. Lucero. The impression and plan of care have been directed as dictated.
--- NOTE | 2018-06-06 10:48 | US ---
EXAMINATION TYPE: US thoracentesis DATE OF EXAM: 06/06/2018 COMPARISON: NONE HISTORY: Pleural effusion. FINDINGS: Maximal barrier technique was utilized. The skin overlying a suitable pocket of fluid was localized and the overlying skin prepped and draped. Lidocaine was used for local anesthesia. Ultras ound was used with sterile technique. A 5 Czech catheter over guide needle was advanced into the pl eural fluid collection using ultrasound guidance and the catheter advanced, needle removed. Approxim ately 1 liter(s) of mary fluid was removed. Catheter was withdrawn and hemostasis achieved. There is no immediate complication. The patient discharged in stable condition without complication. IMPRESSION: STATUS POST ULTRASOUND GUIDED THORACENTESIS, POST PROCEDURE CHEST X-RAY PENDING. THIS [place] OCEDURE WAS PERFORMED BY THE UNDERSIGNED. Specimen sent for laboratory analysis.
[2018-06-06] MEDS: METOPROLOL TARTRATE 50 MG TAB PO SCH (11:17)
[2018-06-06] MEDS: DORZOLAMIDE HCL 2% DROPS 10 ML BTL LEFT EYE SCH ×2 (11:17→16:45)
[2018-06-06] MEDS: PANTOPRAZOLE 40 MG/10 ML VIAL IV SCH (11:17)
[2018-06-06] MEDS: Omega-3 Fatty Acids/Fish Oil [Fish Oil 1,000 Mg Softgel] 1 CAP PO SCH ×2 (11:17→16:45)
[2018-06-06] MEDS: ASPIRIN 81 MG PO SCH (11:17)
[2018-06-06] MEDS: TAMSULOSIN 0.4 MG CAP.ER.24H PO SCH (11:18)
[2018-06-06] MEDS: prednisoLONE ACETATE 1% OPHTH DROPS 5 ML BTL LEFT EYE SCH (11:18)
[2018-06-06 11:26] VITALS: TEMP 97.4
--- NOTE | 2018-06-06 12:54 | P.PN ---
Subjective Progress Note Date: 06/06/18 Principal diagnosis: Chronic left-sided pleural effusion, status post thoracentesis 3, nondiagnostic pleural fluid This 82-year-old male patient of Dr. Parks, with history of recurrent left pleural effusion, which had been drained an outpatient basis, pleural fluid cultures, and cytologies have been negative. Patient was admitted to the hospital on 06/05/2018 complaint of abdominal discomfort. Patient was scheduled for outpatient thoracentesis for recurrent left pleural effusion by interventional radiology, the patient had been complaining of worsening shortness of breath. He is scheduled for ultrasound-guided left-sided thoracentesis with IR today, and 956 mL of serosanguineous pleural fluid was removed which was sent for cytology, cultures and pleural fluid analysis. Tolerated the procedure well. Room air pulse ox is 96%, he is afebrile, hemodynamically stable. Patient's abdominal pain has completely resolved, there has been no nausea or vomiting, no evidence of GI bleeding, no hematemesis or melena, patient has been seen by surgical services, he was found to have cholelithiasis without acute cholecystitis, has been cleared by surgery for discharge with outpatient follow-up with Dr. Ho. Today's labs have been reviewed, and showed white blood cell count of 4.0, hemoglobin of 11.5, sodium of 140, potassium is 4.3, chloride is 111, B1 is 21 and creatinine is 1.0. Breathing easier after the procedure, no complaints of chest pain, signs are stable, from pulmonary perspective she stable for discharge home, postoperative chest x-ray has been reviewed by Dr. Yoo, and shows left-sided consolidation and pleural effusion with no sizable pneumothorax Objective - Vital Signs Vital signs: Vital Signs Temp 97.4 F L 06/06/18 11:25 Pulse 64 06/06/18 11:25 Resp 16 06/06/18 11:25 BP 111/58 06/06/18 11:25 Pulse Ox 96 06/06/18 11:25 Intake & Output 06/05/18 06/06/18 06/06/18 18:59 06:59 18:59 Output Total 668 Balance -668 Output: Urine 450 Post Void Residual 218 Other: Voiding Method Toilet # Voids 2 - Exam GENERAL EXAM: Alert, pleasant, 82-year-old white male, comfortable in no apparent distress. HEAD: Normocephalic/atraumatic. EYES: Normal reaction of pupils, equal size. Conjunctiva pink, sclera white. NOSE: Clear with pink turbinates. THROAT: No erythema or exudates. NECK: No masses, no JVD, no thyroid enlargement, no adenopathy. CHEST: No chest wall deformity. Symmetrical expansion. LUNGS: Equal air entry with diminished breath sounds at left lower base CVS: Regular rate and rhythm, normal S1 and S2, no gallops, no murmurs, no rubs ABDOMEN: Soft, nontender. No hepatosplenomegaly, normal bowel sounds, no guarding or rigidity. EXTREMITIES: No clubbing, no edema, no cyanosis, 2+ pulses and upper and lower extremities. MUSCULOSKELETAL: Muscle strength and tone normal. SPINE: No scoliosis or deformity SKIN: No rashes CENTRAL NERVOUS SYSTEM: Alert and oriented -3. No focal deficits, tone is normal in all 4 extremities. PSYCHIATRIC: Alert and oriented -3. Appropriate affect. Intact judgment and insight. - Labs CBC & Chem 7: 06/06/18 07:25 06/06/18 07:25 Labs: Abnormal Lab Results - Last 24 Hours (Table) 06/06/18 06/06/18 06/06/18 Range/Units 07:15 07:25 07:25 RBC 3.55 L (4.30-5.90) m/uL Hgb 11.5 L (13.0-17.5) gm/dL Hct 36.0 L (39.0-53.0) % MCV 101.5 H (80.0-100.0) fL Plt Count 65 L (150-450) k/uL Chloride 111 H (98-107) mmol/L BUN 21 H (9-20) mg/dL Glucose 121 H (74-99) mg/dL POC Glucose (mg/dL) 121 H (75-99) mg/dL Total Bilirubin 2.8 H (0.2-1.3) mg/dL Total Protein 5.8 L (6.3-8.2) g/dL Albumin 2.9 L (3.5-5.0) g/dL Microbiology - Last 24 Hours (Table) 06/05/18 03:38 Blood Culture - Preliminary Blood No Growth after 24 hours Assessment and Plan Plan: Assessment: #1. Acute abdominal pain, epigastric in nature, patient was found to have cirrhotic liver disease with splenomegaly and ascites, obstructive nephrolithiasis CT abdomen and pelvis, ultrasound of gallbladder showed cho lelithiasis without evidence of acute cholecystitis. Abdominal pain has been resolved, patient was seen by surgical services, and has been cleared for discharge with outpatient follow-up #2. Large recurrent left-sided pleural effusion, status post outpatient thoracentesis 2, with subsequent loculation the pleural fluid. Patient was scheduled for ultrasound-guided thoracentesis by interventional radiology today, would removal in 195 mL of serosanguineous pleural fluid, which was sent for cu ltures, pleural fluid analysis and cytology. Previous pleural fluid cytology and cultures have been negative #3. Shortness of breath, and mild orthopnea secondary to the left-sided pleural effusion #4. Diabetes mellitus type 2 #5. Deep Venous thrombosis #6. Hyperlipidemia #7. History of pulmonary embolism #8. Coronary artery disease, status post 5 vessel bypass grafting in 2016 #9. Congestive heart failure #11. Hypertension #12. Cirrhosis Plan: Patient tolerated the left-sided thoracentesis well, postprocedure chest x-ray has been reviewed by Dr. Dr. Aviles, showed no evidence of thoracentesis, left lower lobe consolidation, and residual pleural effusion. Vital signs are stable, events overnight, abdominal pain has resolved, patient has been cleared by surgery for discharge, from pulmonary perspective patient is stable for discharge home today with outpatient follow-up with Dr. Aviles or Dr. De Los Santos in the office I performed a history & physical examination of the patient and discussed their management with my nurse practitioner, Ale Del Rio. I reviewed the nurse practitioner's note and agree with the documented findings and plan of care. Lung sounds are positive for diminished breath sounds at left base. The findings and the impression was discussed with the patient. I attest to the documentation by the nurse practitioner. Time with Patient: Less than 30
[2018-06-06] MEDS ORDERED: MORPHINE ORAL SOLN 10 MG/5 ML CUP PO PRN (13:12)
[2018-06-06 14:20] LABS: Appearance,BF Hazy; Color,BF Orange; Nucleated Cells, Body Fluid 580 /uL; RBC, Body Fluid 15060 /uL
[2018-06-06 14:22] LABS: Mononuclear WBC,Body Fluid 96 %; Polynuclear WBC,Body Fluid 4 %; Total Cells Counted,Body Fluid 100
[2018-06-06 16:33] VITALS: BP 123/64; PULSE 67
[2018-06-06] MEDS ORDERED: WARFARIN 7.5 MG TAB PO SCH (18:00)
[2018-06-06] MEDS ORDERED: WARFARIN 7.5 MG TAB PO ONE (18:00)
[2018-06-06 18:35] LABS: Total Protein, Body Fluid 2200 mg/dL
[2018-06-07 06:14] LABS: Albumin CANCELED g/dL; Gamma Globulin CANCELED g/dL
[2018-06-07 07:28] LABS: Protein, Total CANCELED g/dL
[2018-06-07] MEDS ORDERED: PANTOPRAZOLE 40 MG TABLET PO SCH (09:00)
[2018-06-07] MEDS ORDERED: metFORMIN 500 MG TAB PO SCH (17:30)
[2018-06-08 13:37] LABS: Liver/Kidney Microsome Antibod 1.5 UNITS (<=20)
--- NOTE | 2018-06-08 18:24 | DS ---
DISCHARGE SUMMARY DATE OF ADMISSION: 06/05/2018 DATE OF DISCHARGE: 06/06/2018 FINAL DIAGNOSES: 1. Acute lower abdominal pain. Could be bladder spasms. 2. Cirrhotic liver, exact cause unknown, with evidence of portal hypertension and hepatosplenomegaly and secondary ascites. 3. Chronic congestive heart failure from diastolic dysfunction, ejection fraction 55%. 4. Coronary artery disease. 5. Primary osteoarthritis. 6. Benign prostatic hypertrophy with urinary outflow obstruction symptoms. 7. Hyperlipidemia. 8. Bilateral nephrolithiasis, asymptomatic. 9. Choledocholithiasis, asymptomatic. 10.Recurrent left pleural effusion, cause undetermined. PROCEDURE: Left thoracentesis. About 960 mL of pleural fluid was removed. CONSULTATIONS: 1. Dr. Aviles from Pulmonary. 2. Dr. Ho from General Surgery. 3. Dr. Lucero from GI. HOSPITAL COURSE: This pleasant gentleman with multiple problems presented with acute lower abdominal pain. There was no fever, no chills. No change in bowel pattern. No nausea, vomiting. It is possible that patient may have bladder spasms. Patient had urinary symptoms. Patient's dose of Flomax was increased. The patient did have thoracentesis of the left pleural effusion, which he has had before. He will now follow up with Dr. Aviles for the same. Exact cause is currently unknown. Cytology came back negative. The patient's lower abdominal pain completely resolved. The patient did have a [place] catheter with some hematuria from the same; that resolved. The catheter was discontinued. Ultrasound of the gallbladder did show gallstones, but the patient's clinical history and findings were not compatible with gallstones being symptomatic. Patient also has evidence of cirrhosis and evidence of portal venous hypertension, including splenomegaly and some ascites. The patient was seen by Dr. Lucero at this point. As per his notes, the patient did not warrant any further workup to be done. At the time of discharge the patient was feeling rather well, back to his baseline. Care was discussed in detail with the patient. Questions were answered. Patient did tolerate his diet. The patient's thrombocytopenia and hypoalbuminemia are felt to be from cirrhosis, but further workup can be done as an outpatient. PHYSICAL EXAMINATION: Temperature 97.5, pulse 78, respiration 18, blood pressure 116/67, pulse ox 96% on room air. LUNGS: Decreased breath sounds. ABDOMEN: Soft, nontender. INVESTIGATIONS: White count 4, hemoglobin 11.5, platelets 65. Potassium 4.3, BUN 21, creatinine 1.0, albumin 2.9. DISCHARGE MEDICATIONS: 1. Trusopt 2% one drop to left eye t.i.d. 2. Xalatan 0.005% one drop to both eyes at bedtime. 3. Glucophage 500 mg p.o. before meals t.i.d. 4. Coumadin 7.5 p.o. daily. 5. Lopressor 50 mg p.o. b.i.d. 6. Pravachol 40 mg at bedtime. 7. Aspirin 81 mg p.o. daily. 8. Fish oil 1000 mg p.o. t.i.d. 9. Prednisolone 1% one drop to left eye daily. 10.Flomax 0.8 mg p.o. daily. Discussion and discharge planning more than 35 minutes. Follow up with Dr. Lucero on June 20, 2018. Follow up with Dr. Parks on June 13, 2018. Follow up with Dr. Navarro in one week. Follow up with Dr. Ho on June 13, 2018. Patient should have a CBC and BMP after he follows up with Dr. Parks, and Dr. Parks can follow up on the labs as outpatient. MMODL / IJN: [id number] /
== END 2018-06-06 18:28 | disposition home or self-care (01) ==
LOC: EC 01:27 → 4SSUR 05:32
PROVIDERS: ADMIT Hospitalist; ATTEND Hospitalist
DX: R10.11 Right upper quadrant pain (principal); R10.32 Left lower quadrant pain; R10.13 Epigastric pain; J90 Pleural effusion, not elsewhere classified; E11.9 Type 2 diabetes mellitus without complications; E78.5 Hyperlipidemia, unspecified; E86.0 Dehydration; E87.2 Acidosis; I11.0 Hypertensive heart disease with heart failure; I25.10 Atherosclerotic heart disease of native coronary artery without angina pectoris; I48.0 Paroxysmal atrial fibrillation; I50.32 Chronic diastolic (congestive) heart failure; K72.90 Hepatic failure, unspecified without coma; K74.60 Unspecified cirrhosis of liver; N40.1 Benign prostatic hyperplasia with lower urinary tract symptoms; M47.9 Spondylosis, unspecified; N13.8 Other obstructive and reflux uropathy; M19.91 Primary osteoarthritis, unspecified site; N20.0 Calculus of kidney; D69.59 Other secondary thrombocytopenia; K76.6 Portal hypertension; K80.70 Calculus of gallbladder and bile duct without cholecystitis without obstruction; R18.8 Other ascites; Z79.01 Long term (current) use of anticoagulants; Z79.82 Long term (current) use of aspirin; Z79.84 Long term (current) use of oral hypoglycemic drugs; Z79.899 Other long term (current) drug therapy; Z88.5 Allergy status to narcotic agent; Z88.0 Allergy status to penicillin; Z91.048 Other nonmedicinal substance allergy status; Z86.711 Personal history of pulmonary embolism; Z86.718 Personal history of other venous thrombosis and embolism; Z95.1 Presence of aortocoronary bypass graft; Z87.891 Personal history of nicotine dependence; Z94.7 Corneal transplant status
CPT/HCPCS: 96361; 96374; 99285; 36415; 93005; 86376; 88108; 88305; 80053 ×2; 89050; 82150; 83605; 83690 ×2; 84484; 85025 ×2; 85610; 85730; 81003; 87040; 83516 ×2; 87070; 87205; 87075; 82945; 83615; 84157; 71045; 32555; 76705; 71275; 74176; 74174; G0378 ×2; J0696; J3010; J0131; Q9967; 82103; 82105; 82390; 82728; 84165

== ENCOUNTER 2019-01-04 09:30 | Day surgery (SDC) | payer MEDICARE ==
[2019-01-04 10:03] LABS: Mean Platelet Volume 10.6
[2019-01-04 10:04] VITALS: TEMP 98.1
[2019-01-04 10:08] LABS: INR 1.2 (<1.2); Prothrombin Time 12.4 sec (9.0-12.0)
[2019-01-04 10:20] LABS: Platelet Count 78 k/uL (150-450)
[2019-01-04 10:25] VITALS: RESP 20
--- NOTE | 2019-01-04 11:25 | XR ---
EXAMINATION TYPE: XR chest 1V portable DATE OF EXAM: 01/04/2019 COMPARISON: Chest x-ray June 06, 2018 HISTORY: Status post left-sided thoracentesis. TECHNIQUE: Single frontal view of the chest is obtained. FINDINGS: There is no pneumothorax after left-sided thoracentesis. Persistent moderate left-sided pl eural effusion. There is associated left lower lung atelectasis and/or infiltrate. No mediastinal monique ft. Right lung remains clear. There is suspected left central hilar mass or neoplasm. Correlate clini lorenzo. The cardiac silhouette size is stable and upper limits of normal. The osseous structures are intact. IMPRESSION: No pneumothorax after left-sided thoracentesis.
[2019-01-04 12:12] VITALS: PULSE 48
[2019-01-04 12:13] VITALS: BP 94/48
--- NOTE | 2019-01-04 12:51 | US ---
Ultrasound-guided therapeutic and diagnostic thoracentesis DATE OF EXAM: 01/04/2019 CLINICAL HISTORY: Left pleural effusion The procedure was discussed with the patient. The risks, complications, benefits, and alternatives we re discussed and any questions were answered. Informed consent was obtained. The patient was placed supine on the ultrasound table and prepped and draped in the usual sterile fas hion. All elements of maximal barrier and sterile technique were utilized. Under ultrasound guidance, access into the pleural space was obtained, via the thoracentesis catheter system and direct ultrasound guidance. Ap proximately 0.5 liters of serous fluid was removed. The patient was stable throughout the procedure and remained stable upon discharge from Department of Radiology. IMPRESSION: 1. Successful therapeutic and diagnostic thoracentesis under ultrasound guidance.
== END 2019-01-04 12:10 | disposition home or self-care (01) ==
LOC: RADPROMAIN 09:30
PROVIDERS: ATTEND Family Medicine
DX: J90 Pleural effusion, not elsewhere classified (principal)
CPT/HCPCS: 32555; 36415; 71045; 85049; 85610

== ENCOUNTER 2019-01-26 14:46 | Observation (INO) | payer MEDICARE ==
--- NOTE | 2019-01-26 15:20 | ED ---
General Adult HPI - General Chief complaint: Shortness of Breath Stated complaint: Fluid in lungs Time Seen by Provider: 01/26/19 14:55 Source: patient, family, RN notes reviewed Mode of arrival: wheelchair Limitations: no limitations - History of Present Illness Initial comments: This is an 83-year-old male who presents emergency department with past mental history significant for cirrhosis of the liver and multiple pleural effusions with thoracentesis. Patient comes in because he's been having more of a difficult time breathing and he thought maybe he had a fluid reaccumulate. Patient states he went to see his primary medical care doctor and they told him he needed to have his lung drained again. Patient came to the emergency department because of this. Patient is on Coumadin but he does not know why he is on Coumadin. Patient denies any chest pain or palpitations. Patient denies any fever chills or cough. Patient has no other complaints at this time. - Related Data Home Medications Medication Instructions Recorded Confirmed Dorzolamide 2% [Trusopt 2%] 1 drops LEFT EYE TID 08/06/16 01/26/19 Latanoprost [Xalatan 0.005%] 1 drop BOTH EYES HS 08/09/16 01/26/19 metFORMIN HCL [Glucophage] 500 mg PO AC-TID 08/09/16 01/26/19 Warfarin Sodium [Coumadin] 7.5 mg PO DAILY 10/29/17 01/26/19 Metoprolol Tartrate [Lopressor] 50 mg PO BID 03/16/18 01/26/19 Pravastatin Sodium [Pravachol] 40 mg PO HS 03/16/18 01/26/19 Aspirin EC [Ecotrin Low Dose] 81 mg PO DAILY 03/17/18 01/26/19 [place]-3 Fatty Acids/Fish Oil [Fish 1 cap PO TID 04/26/18 01/26/19 Oil 1,000 mg Softgel] Furosemide [Lasix] 40 mg PO DAILY 01/04/19 01/26/19 Acetaminophen Tab [Tylenol Tab] 650 mg PO Q6H PRN 01/26/19 01/26/19 Hyaluronic Acid 100 mg PO BID 01/26/19 01/26/19 Spironolactone 100 mg PO DAILY 01/26/19 01/26/19 Tamsulosin [Flomax] 0.4 mg PO DAILY 01/26/19 01/26/19 prednisoLONE [prednisoLONE Oral 1 drop BOTH EYES MOTH 01/26/19 01/26/19 Soln] Allergies Allergy/AdvReac Type Severity Reaction Status Date / Time Penicillins Allergy Rash/Hives Verified 01/26/19 16:02 codeine AdvReac Hallucinati Verified 01/26/19 16:02 ons tape AdvReac Rash/Hives Uncoded 01/26/19 14:53 Review of Systems ROS Statement: Those systems with pertinent positive or pertinent negative responses have been documented in the HPI. ROS Other: All systems not noted in ROS Statement are negative. Past Medical History Past Medical History: Diabetes Mellitus, Deep Vein Thrombosis (DVT), Eye Disorder, Hyperlipidemia, Osteoarthritis (OA), Prostate Disorder, Pulmonary E mbolus (PE) Additional Past Medical History / Comment(s): Three-vessel coronary artery disease, shingles, History of Any Multi-Drug Resistant Organisms: None Reported Past Surgical History: Coronary Bypass/CABG Additional Past Surgical History / Comment(s): corneal transplant, thoracentesis Past Anesthesia/Blood Transfusion Reactions: No Reported Reaction Past Psychological History: No Psychological Hx Reported Smoking Status: Never smoker Past Alcohol Use History: None Reported Past Drug Use History: None Reported - Past Family History Mother Family Medical History: No Reported History Brother(s) Family Medical History: Cancer Additional Family Medical History / Comment(s): bone cancer Father Family Medical History: Cancer Additional Family Medical History / Comment(s): skin/bone cancer General Exam - General Exam Comments Initial Comments: GENERAL: Patient is well-developed and well-nourished. Patient is nontoxic and well- hydrated and is in MILD distress ENT: Neck is soft and supple. No significant lymphadenopathy is noted. Neck has full range of motion without eliciting any pain. EYES: The sclera were anicteric and conjunctiva were pink and moist. Extraocular movements were intact and pupils were equal round and reactive to light. Eyelids were unremarkable. PULMONARY: PATIENT HAS DIMINISHED BREATH SOUNDS IN THE LEFT BASE. CARDIOVASCULAR: There is a regular rate and rhythm without any murmurs gallops or rubs. ABDOMEN: Soft and nontender with normal bowel sounds. SKIN: Skin is clear with no lesions or rashes and otherwise unremarkable. NEUROLOGIC: Patient is alert and oriented x3. Cranial nerves II through XII are grossly intact. Motor and sensory are also intact. Normal speech, volume and content. Symmetrical smile. MUSCULOSKELETAL: Normal extremities with adequate strength and full range of motion. LYMPHATICS: No significant lymphadenopathy is noted PSYCHIATRIC: Normal psychiatric evaluation. Limitations: no limitations Course Vital Signs 01/26/19 01/26/19 01/26/19 14:53 14:58 16:48 Temperature 97.8 F Pulse Rate 46 L 49 L Respiratory 24 0 L 16 Rate Blood Pressure 115/57 115/91 O2 Sat by Pulse 96 98 Oximetry Medical Decision Making - Medical Decision Making I spoke with Dr. Hook and he would be willing to see the patient either tomorrow as a consult or the office on Tuesday. I went back in to discuss this with the patient and the family the son told me that the father was very blue and purple on the lips anytime he moves at home and it's making very nervous and so they opted to stay and talk to Dr. Hook in the morning. I spoke with Dr. Long agreed to admit the patient admitted the patient wrote admitting orders Patient's EKG showed marked sinus bradycardia at 49 bpm WA interval 250 QRS 70 QT interval 44 QTC is 437. Patient's EKG shows no ST segment elevation or depression. I asked the patient is always bradycardic he stated that he was always in the 40s to low 50s. - Lab Data Result diagrams: 01/26/19 15:25 01/26/19 15:25 Lab Results 01/26/19 01/26/19 01/26/19 Range/Units 15:25 15:25 15:25 WBC 4.4 (3.8-10.6) k/uL RBC 3.75 L (4.30-5.90) m/uL Hgb 12.3 L (13.0-17.5) gm/dL Hct 37.5 L (39.0-53.0) % MCV 100.0 (80.0-100.0) fL MCH 32.8 (25.0-35.0) pg MCHC 32.8 (31.0-37.0) g/dL RDW 14.5 (11.5-15.5) % Plt Count 79 L (150-450) k/uL Neutrophils % 61 % Lymphocytes % 27 % Monocytes % 6 % Eosinophils % 3 % Basophils % 1 % Neutrophils # 2.7 (1.3-7.7) k/uL Lymphocytes # 1.2 (1.0-4.8) k/uL Monocytes # 0.3 (0-1.0) k/uL Eosinophils # 0.1 (0-0.7) k/uL Basophils # 0.0 (0-0.2) k/uL Manual Slide Review Performed Macrocytosis Slight PT 28.6 H (9.0-12.0) sec INR 3.0 H (<1.2) APTT 34.0 H (22.0-30.0) sec Sodium 143 (137-145) mmol/L Potassium 4.5 (3.5-5.1) mmol/L Chloride 112 H (98-107) mmol/L Carbon Dioxide 21 L (22-30) mmol/L Anion Gap 10 mmol/L BUN 33 H (9-20) mg/dL Creatinine 1.44 H (0.66-1.25) mg/dL Est GFR (CKD-EPI)AfAm 51 (>60 ml/min/1.73 sqM) Est GFR (CKD-EPI)NonAf 44 (>60 ml/min/1.73 sqM) Glucose 113 H (74-99) mg/dL Calcium 9.2 (8.4-10.2) mg/dL Total Bilirubin 1.5 H (0.2-1.3) mg/dL AST 34 (17-59) U/L ALT 25 (21-72) U/L Alkaline Phosphatase 117 (38-126) U/L Total Protein 6.9 (6.3-8.2) g/dL Albumin 3.4 L (3.5-5.0) g/dL Disposition Clinical Impression: Pleural effusion, Dyspnea Disposition: ADMITTED IP TO THIS [facility] Referrals: Sage Parks MD [Primary Care Provider] - 1-2 days Time of Disposition: 16:45
[2019-01-26 15:43] LABS: Albumin 3.4 g/dL (3.5-5.0); Basophils % (A) 1 %; Calcium 9.2 mg/dL (8.4-10.2); Eosinophils # (A) 0.1 k/uL (0-0.7); Eosinophils % (A) 3 %; HCT 37.5 % (39.0-53.0); HGB 12.3 gm/dL (13.0-17.5); Lymphocytes # (A) 1.2 k/uL (1.0-4.8); Lymphocytes % (A) 27 %; MCH 32.8 pg (25.0-35.0); MCHC 32.8 g/dL (31.0-37.0); Macrocytosis Slight; Mean Platelet Volume 8.3; Monocytes # (A) 0.3 k/uL (0-1.0); Monocytes % (A) 6 %; Neutrophils # (A) 2.7 k/uL (1.3-7.7); Neutrophils % (A) 61 %; Potassium 4.5 mmol/L (3.5-5.1); RBC 3.75 m/uL (4.30-5.90); RDW 14.5 % (11.5-15.5); Total Bilirubin 1.5 mg/dL (0.2-1.3); Total Protein 6.9 g/dL (6.3-8.2); WBC 4.4 k/uL (3.8-10.6)
[2019-01-26 15:52] LABS: Prothrombin Time 28.6 sec (9.0-12.0)
[2019-01-26 16:42] LABS: Platelet Count 79 k/uL (150-450)
[2019-01-26] MEDS ORDERED: SODIUM CHLORIDE 0.9% 1,000 ML IV ONE (16:47)
[2019-01-26 18:37] VITALS: BMI 31.5
--- NOTE | 2019-01-26 19:51 | US ---
EXAMINATION TYPE: US chest DATE OF EXAM: 01/26/2019 COMPARISON: NONE CLINICAL HISTORY: left-sided pleural effusion. Left pleural effusion TECHNIQUE: Targeted ultrasound of the posterior lower left hemithorax EXAM MEASUREMENTS: Left Pleural Effusion pocket size: 8.0 cm Left skin surface to fluid distance: 4.4 cm Left side marked for possible thoracentesis outside the dept. Pulmonologists are able to review the images in the patient?s EMR. IMPRESSIONS: There is demonstration of left pleural effusion.
[2019-01-26] MEDS ORDERED: ACETAMINOPHEN TAB 325 MG TAB PO PRN (21:43)
--- NOTE | 2019-01-26 21:54 | P.HPIM ---
History of Present Illness H&P Date: 01/26/19 Chief Complaint: Shortness of breath History of presenting complaint: This is a pleasant 83-year-old patient who follows a Dr. Sage Parks. 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 Other chronic stable medical conditions include coronary artery disease, primary osteoarthritis, BPH, hyperlipidemia, bilateral nephrolithiasis, or do cholelithiasis. Patient's had recurrent left pleural effusion causes unknown. Patient in May of this year did undergo thoracentesis and cytology was negative. Patient's last thoracentesis was 2 weeks ago. Patient does follow with Dr. 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 Patient also follows with Dr. Pickett the traditional chinese herbalist. Patient now presents with increasing shortness of breath. Increasing edema. Appetite is okay. No fever no chills. Lives by himself. Review of systems: GEN.: Tired EYES: None HEENT: None NECK: None RESPIRATORY: Short of present exertion CARDIOVASCULAR: Edema GASTROINTESTINAL: None GENITOURINARY: None MUSCULOSKELETAL: Pain in some joints LYMPHATICS: None HEMATOLOGICAL: None PSYCHIATRY: None NEUROLOGICAL: None Social history: Does not smoke or drink alcohol. Lives alone. Retired. Physical examination: VITAL SIGNS: 97.8, 46, 24, 11 5/57, 96% room air GENERAL: BMI 31.6, laying in bed tired. EYES: Pupils equal. Conjunctiva normal. HEENT: External appearance of nose and ears normal, oral cavity grossly normal. NECK: JVD possibly raised; masses not palpable. HEART: First and second heart sounds are normal; edema present. LUNGS: Respiratory rate increased; diminished breath sounds on the left side posteriorly. ABDOMEN: Soft, nontender, liver spleen not palpable, no masses palpable. PSYCH: Alert and oriented x3; mood and affect normal. NEUROLOGICAL: Cranial nerves grossly intact; no facial asymmetry, power and sensation grossly intact. LYMPHATICS: No lymph nodes palpable in the axilla and neck INVESTIGATIONS, reviewed in the clinical context: Potassium 4.4 hemoglobin 12.3 platelets 79 pro time 28.6 potassium 4.5. And 33 crit 1.44 EKG tracings-poor R-wave progression 2-D echo from February 2018 shows EF of 55-60%, moderate pulmonary hypertension, moderate pulmonary regurgitation Assessment: --Cryptogenic cirrhosis with portal hypertension leading 2 hepatosplenomegaly and secondary ascites -Coronary artery disease -Primary osteoarthritis -BPH -Hyperlipidemia -Bilateral nephrolithiasis -Recurrent left pleural effusion cause noncontributory. Thoracentesis loss of being 2 weeks ago -Thrombocytopenia due to cirrhosis -Prolonged pro time due to cirrhosis Plan: Consultation made to GI, cardiology, pulmonary. Home medications resumed. Care was discussed with the patient. Questions were answered. Past Medical History Past Medical History: Diabetes Mellitus, Deep Vein Thrombosis (DVT), Eye Disorder, Hyperlipidemia, Osteoarthritis (OA), Prostate Disorder, Pulmonary Embolus (PE) Additional Past Medical History / Comment(s): Three-vessel coronary artery disease, shingles, Cirrhosis History of Any Multi-Drug Resistant Organisms: None Reported Past Surgical History: Coronary Bypass/CABG Additional Past Surgical History / Comment(s): corneal transplant, thoracentesis Past Anesthesia/Blood Transfusion Reactions: No Reported Reaction Past Psychological History: No Psychological Hx Reported Additional Psychological History / Comment(s): pt lives alone. no home care, no medical equipment Smoking Status: Never smoker Past Alcohol Use History: None Reported Additional Past Alcohol Use History / Comment(s): smoked a little as teen Past Drug Use History: None Reported - Past Family History Mother Family Medical History: No Reported History Brother(s) Family Medical History: Cancer Additional Family Medical History / Comment(s): bone cancer Father Family Medical History: Cancer Additional Family Medical History / Comment(s): skin/bone cancer Medications and Allergies Home Medications Medication Instructions Recorded Confirmed Type Dorzolamide 2% [Trusopt 2%] 1 drops LEFT EYE TID 08/06/16 01/26/19 History Latanoprost [Xalatan 0.005%] 1 drop BOTH EYES 08/09/16 01/26/19 History metFORMIN HCL [Glucophage] 500 mg PO AC-TID 08/09/16 01/26/19 History Warfarin Sodium [Coumadin] 7.5 mg PO DAILY 10/29/17 01/26/19 History Metoprolol Tartrate [Lopressor] 50 mg PO BID 03/16/18 01/26/19 History Pravastatin Sodium [Pravachol] 40 mg PO HS 03/16/18 01/26/19 History Aspirin EC [Ecotrin Low Dose] 81 mg PO DAILY 03/17/18 01/26/19 History [place]-3 Fatty Acids/Fish Oil [Fish 1 cap PO TID 04/26/18 01/26/19 History Oil 1,000 mg Softgel] Furosemide [Lasix] 40 mg PO DAILY 01/04/19 01/26/19 History Acetaminophen Tab [Tylenol Tab] 650 mg PO Q6H PRN 01/26/19 01/26/19 History Hyaluronic Acid 100 mg PO BID 01/26/19 01/26/19 History Spironolactone 100 mg PO DAILY 01/26/19 01/26/19 History Tamsulosin [Flomax] 0.4 mg PO DAILY 01/26/19 01/26/19 History prednisoLONE [prednisoLONE Oral 1 drop BOTH EYES MOTH 01/26/19 01/26/19 History Soln] Allergies Allergy/AdvReac Type Severity Reaction Status Date / Time Penicillins Allergy Rash/Hives Verified 01/26/19 16:02 codeine AdvReac Hallucinati Verified 01/26/19 16:02 ons tape AdvReac Rash/Hives Uncoded 01/26/19 14:53 Physical Exam Vitals: Vital Signs Temp Pulse Resp BP Pulse Ox 01/26/19 17:55 50 L 18 119/80 98 01/26/19 16:48 49 L 16 115/91 98 01/26/19 14:58 18 01/26/19 14:53 97.8 F 46 L 24 115/57 96 Intake and Output 01/26/19 01/26/19 01/26/19 06:59 14:59 22:59 Other: Weight 99.79 kg Results CBC & Chem 7: 01/26/19 15:25 01/26/19 15:25 Labs: Abnormal Lab Results - Last 24 Hours (Table) 01/26/19 01/26/19 01/26/19 Range/Units 15:25 15:25 15:25 RBC 3.75 L (4.30-5.90) m/uL Hgb 12.3 L (13.0-17.5) gm/dL Hct 37.5 L (39.0-53.0) % Plt Count 79 L (150-450) k/uL PT 28.6 H (9.0-12.0) sec INR 3.0 H (<1.2) APTT 34.0 H (22.0-30.0) sec Chloride 112 H (98-107) mmol/L Carbon Dioxide 21 L (22-30) mmol/L BUN 33 H (9-20) mg/dL Creatinine 1.44 H (0.66-1.25) mg/dL Glucose 113 H (74-99) mg/dL Total Bilirubin 1.5 H (0.2-1.3) mg/dL Albumin 3.4 L (3.5-5.0) g/dL Thrombosis Risk Factor Assmnt - Choose All That Apply Any of the Below Risk Factors Present?: No Other Risk Factors: Yes Each Risk Factor Represents 3 Points: Age 75 years or older, History of DVT/PE Thrombosis Risk Factor Assessment Total Risk Factor Score: 6 Thrombosis Risk Factor Assessment Level: High Risk
[2019-01-26] MEDS ORDERED: LATANOPROST 0.005% OPHTH DROPS 2.5 ML BTL BOTH EYES SCH (22:00)
[2019-01-26] MEDS ORDERED: PRAVASTATIN SODIUM 40 MG TAB PO SCH (22:00)
[2019-01-26] MEDS: DORZOLAMIDE HCL 2% DROPS 10 ML BTL LEFT EYE SCH (22:50)
[2019-01-26] MEDS: METOPROLOL TARTRATE 50 MG TAB PO SCH (22:50)
[2019-01-27] MEDS ORDERED: metFORMIN 500 MG TAB PO SCH (07:30)
[2019-01-27] MEDS ORDERED: TAMSULOSIN 0.4 MG CAP.ER.24H PO SCH (09:00)
[2019-01-27] MEDS ORDERED: ASPIRIN 81 MG PO SCH (09:00)
[2019-01-27] MEDS ORDERED: FUROSEMIDE 40 MG TAB PO SCH (09:00)
[2019-01-27] MEDS ORDERED: SPIRONOLACTONE 25 MG TAB PO SCH (09:00)
[2019-01-27] MEDS: DORZOLAMIDE HCL 2% DROPS 10 ML BTL LEFT EYE SCH (10:27)
[2019-01-27] MEDS: METOPROLOL TARTRATE 50 MG TAB PO SCH (10:28)
--- NOTE | 2019-01-27 10:38 | XR ---
EXAMINATION TYPE: XR chest 1V portable DATE OF EXAM: 01/27/2019 HISTORY: pleural effusion. REFERENCE: Previous study dated 01/26/2019. FINDINGS: There has been a midline sternotomy. There is a continuing left effusion. There is continuing left basilar airspace disease. The right teofilo g is clear. Heart size is obscured. IMPRESSION: CONTINUING LEFT BASILAR AIRSPACE DISEASE WITH A CONCOMITANT EFFUSION, UNCHANGED FROM PREVIOUS.
[2019-01-27 11:35] LABS: INR 2.9 (<1.2); Prothrombin Time 28.4 sec (9.0-12.0)
[2019-01-27 12:11] VITALS: BP 103/53; PULSE 56; RESP 16; TEMP 96.5
--- NOTE | 2019-01-27 13:01 | P.CRDCN ---
History of Present Illness Consult date: 01/27/19 Consult reason: congestive heart failure History of present illness: This is an 83-year-old male patient of Dr. Kaylee Obrien in [place] with past medical history of coronary artery disease status post CABG in 2017 with left internal mammary artery to LAD, saphenous vein graft to obtuse marginal artery with Dr. 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 Casanova, multiple pleural effusions and thoracentesis, diabetes mellitus type 2, hyperlipidemia. Denies history of pulmonary embolism and states he is on Coumadin to prevent a pulmonary embolism. Patient states that Dr. Parks normally manages his thoracentesis by contacting radiology at [facility] and he comes in to radiology Department as a thoracentesis completed and goes home. His last thoracentesis was a couple weeks ago and drained 500 ML's which the patient reports was quite bloody. The time before that was in May 2018. Patient complains of increasing shortness of breath and feels like he can't catch his breath. He also complains of rash on the right side of his face. He saw his primary care physician was referred to the hospital. Patient was seen in the emergency center and INR was 3.0, sodium 143, potassium 4.5, chloride 112, CO2 21, BUN 33, creatinine 1.44 with baseline of 1, blood sugar 113. AST 34, ALT 25, alkaline phosphatase 117. WBC 4.4, hemoglobin 12.3 and platelet count 79. EKG is sinus bradycardia with poor R- wave progression, no acute changes. Patient states his heart rate usually runs in the 40s and 50s. Chest ultrasound found a centimeter pocket left pleural effusion and marked for thoracentesis. Echocardiogram dated 03/17/2018 revealed EF 55-60%, mild mitral regurgitation, mild tricuspid regurgitation, moderate pulmonary hypertension. Review Of Systems: Constitutional: No fever, no chills, no night sweats. No weight change. No weakness, fatigue or lethargy. No daytime sleepiness. EENT: No headache. No blurred vision or double vision, no loss of vision. No loss of Hearing, no ringing in the ears, no dizziness. No nasal drainage or congestion. No epistaxis. No sore throat. Lungs: Reports shortness of breath, denies cough, no sputum production. No wheezing. Cardiovascular: No chest pain, no lower extremity edema. No palpitations. No paroxysmal nocturnal dyspnea. No orthopnea. No lightheadedness or dizziness. No syncopal episodes. Abdominal: No abdominal pain. No nausea, vomiting. No diarrhea. No constipation. No bloody or tarry stools.. No loss of appetite. Genitourinary: No dysuria, increased frequency, urgency. No urinary retention. Musculoskeletal: No myalgias. No muscle weakness, no gait dysfunction, no frequent falls. No back pain. No neck pain. Integumentary: No wounds, no lesions. No rash or pruritus. No unusual bruising. No change in hair or nails. Neurologic: No aphasia. No facial droop. No change in mentation. No head injury. No headache. No paralysis. No paresthesia. Psychiatric: No depression. No anxiety. No mood swings. Endocrine: No abnormal blood sugars. No weight change. Gen: This is a 83-year-old male. Patient is resting on the edge of the bed and appears to be comfortable and in no acute distress. No respiratory distress is noted. Patient is able to speak in full sentences. HEENT: Head is atraumatic, normocephalic. Pupils equal, round. Sclerae is anicteric. NECK: Supple. No JVD. No lymphadenopathy. No thyromegaly. LUNGS: Diminished to the left lower lung field posteriorly. No intercostal retractions. HEART: Regular rate and rhythm. No murmur. ABDOMEN: Soft. Bowel sounds are present. No masses. No tenderness. EXTREMITIES: No pedal edema. No calf tenderness. NEUROLOGICAL: Patient is awake, alert and oriented x3. Cranial nerves 2 through 12 are grossly intact. Assessment: Left-sided pleural effusion Coronary artery disease status post 2 vessel CABG, stable Acute kidney injury Diabetes mellitus type 2 DVT on chronic Coumadin Hypertension Liver cirrhosis Plan: Continue Lasix 40 mg daily, Aldactone 100 mg daily We will follow patient on an as-needed basis. Patient to follow-up with his primary pourer off after discharge Thank you kindly for this consultation. Nurse practitioner note has been reviewed, I agree with documented findings and plan of care. Patient was seen and examined. Past Medical History Past Medical History: Diabetes Mellitus, Deep Vein Thrombosis (DVT), Eye Disorder, Hyperlipidemia, Osteoarthritis (OA), Prostate Disorder, Pulmonary Embolus (PE) Additional Past Medical History / Comment(s): Three-vessel coronary artery disease, shingles, Cirrhosis History of Any Multi-Drug Resistant Organisms: None Reported Past Surgical History: Coronary Bypass/CABG Additional Past Surgical History / Comment(s): corneal transplant, thoracentesis Past Anesthesia/Blood Transfusion Reactions: No Reported Reaction Past Psychological History: No Psychological Hx Reported Additional Psychological History / Comment(s): pt lives alone. no home care, no medical equipment Smoking Status: Never smoker Past Alcohol Use History: None Reported Additional Past Alcohol Use History / Comment(s): smoked a little as teen Past Drug Use History: None Reported - Past Family History Mother Family Medical History: No Reported History Brother(s) Family Medical History: Cancer Additional Family Medical History / Comment(s): bone cancer Father Family Medical History: Cancer Additional Family Medical History / Comment(s): skin/bone cancer Medications and Allergies Home Medications Medication Instructions Recorded Confirmed Type Dorzolamide 2% [Trusopt 2%] 1 drops LEFT EYE TID 08/06/16 01/26/19 History Latanoprost [Xalatan 0.005%] 1 drop BOTH EYES HS 08/09/16 01/26/19 History metFORMIN HCL [Glucophage] 500 mg PO AC-TID 08/09/16 01/26/19 History Metoprolol Tartrate [Lopressor] 50 mg PO BID 03/16/18 01/26/19 History Pravastatin Sodium [Pravachol] 40 mg PO HS 03/16/18 01/26/19 History Aspirin EC [Ecotrin Low Dose] 81 mg PO DAILY 03/17/18 01/26/19 History [place]-3 Fatty Acids/Fish Oil [Fish 1 cap PO TID 04/26/18 01/26/19 History Oil 1,000 mg Softgel] Furosemide [Lasix] 40 mg PO DAILY 01/04/19 01/26/19 History Acetaminophen Tab [Tylenol] 650 mg PO Q6H PRN 01/26/19 01/26/19 History Hyaluronic Acid 100 mg PO BID 01/26/19 01/26/19 History Spironolactone 100 mg PO DAILY 01/26/19 01/26/19 History Tamsulosin [Flomax] 0.4 mg PO DAILY 01/26/19 01/26/19 History prednisoLONE [prednisoLONE Oral 1 drop BOTH EYES MOTH 01/26/19 01/26/19 History Soln] Warfarin Sodium [Coumadin] 7.5 mg PO SUTUTHSA #0 01/27/19 01/26/19 Rx Warfarin [Coumadin] 5 mg PO MOWEFR #30 tab 01/27/19 Rx Allergies Allergy/AdvReac Type Severity Reaction Status Date / Time Penicillins Allergy Rash/Hives Verified 01/26/19 16:02 codeine AdvReac Hallucinati Verified 01/26/19 16:02 ons tape AdvReac Rash/Hives Uncoded 01/26/19 14:53 Physical Exam Vitals: Vital Signs Temp Pulse Pulse Resp BP BP Pulse Ox 01/26/19 21:00 98.0 F 50 L 16 135/87 95 01/26/19 17:55 50 L 18 119/80 98 01/26/19 16:48 49 L 16 115/91 98 01/26/19 14:58 18 01/26/19 14:53 97.8 F 46 L 24 115/57 96 Intake and Output 01/26/19 01/27/19 01/27/19 22:59 06:59 14:59 Intake Total 590 Balance 590 Intake: Oral 590 Other: Voiding Method Toilet # Voids 1 1 Results 01/26/19 15:25 01/26/19 15:25 Cardiac Enzymes 01/26/19 Range/Units 15:25 AST 34 (17-59) U/L Coagulation 01/26/19 Range/Units 15:25 PT 28.6 H (9.0-12.0) sec APTT 34.0 H (22.0-30.0) sec CBC 01/26/19 Range/Units 15:25 WBC 4.4 (3.8-10.6) k/uL RBC 3.75 L (4.30-5.90) m/uL Hgb 12.3 L (13.0-17.5) gm/dL Hct 37.5 L (39.0-53.0) % Plt Count 79 L (150-450) k/uL Comprehensive Metabolic Panel 01/26/19 Range/Units 15:25 Sodium 143 (137-145) mmol/L Potassium 4.5 (3.5-5.1) mmol/L Chloride 112 H (98-107) mmol/L Carbon Dioxide 21 L (22-30) mmol/L BUN 33 H (9-20) mg/dL Creatinine 1.44 H (0.66-1.25) mg/dL Glucose 113 H (74-99) mg/dL Calcium 9.2 (8.4-10.2) mg/dL AST 34 (17-59) U/L ALT 25 (21-72) U/L Alkaline Phosphatase 117 (38-126) U/L Total Protein 6.9 (6.3-8.2) g/dL Albumin 3.4 L (3.5-5.0) g/dL Current Medications Generic Name Dose Route Start Last Admin Trade Name Freq PRN Reason Stop Dose Admin Acetaminophen 650 mg 01/26/19 21:43 Tylenol Tab PO Q6H PRN Pain or Fever > 100.5 Aspirin 81 mg 01/27/19 09:00 Aspirin PO DAILY [facility] Dorzolamide HCl 1 drops 01/26/19 22:00 01/26/19 22:50 Trusopt LEFT EYE Not Given TID [facility] Furosemide 40 mg 01/27/19 09:00 Lasix PO DAILY [facility] Latanoprost 1 drops 01/26/19 22:00 01/26/19 22:50 Xalatan 0.005% BOTH EYES Not Given HS [facility] Metformin HCl 500 mg 01/27/19 07:30 Glucophage PO AC-TID [facility] Metoprolol Tartrate 50 mg 01/26/19 22:00 01/26/19 22:50 Lopressor PO Not Given BID [facility] Pravastatin Sodium 40 mg 01/26/19 22:00 01/26/19 22:50 Pravachol PO Not Given HS [facility] Prednisolone Acetate 1 drops 01/29/19 09:00 Pred Forte 1% BOTH EYES MoTh@0900 [facility] Spironolactone 100 mg 01/27/19 09:00 Aldactone PO DAILY [facility] Tamsulosin HCl 0.4 mg 01/27/19 09:00 Flomax PO DAILY [facility] Warfarin Sodium 7.5 mg 01/27/19 18:00 Coumadin PO DAILY@1800 [facility] Intake and Output 01/26/19 01/27/19 01/27/19 22:59 06:59 14:59 Intake Total 590 Balance 590 Intake: Oral 590 Other: Voiding Method Toilet # Voids 1 1 01/26/19 15:25 01/26/19 15:25
--- NOTE | 2019-01-27 16:11 | CONS ---
CONSULTATION PULMONARY/CRITICAL CARE CONSULTATION: This is an 83-year-old male who apparently was told to go the emergency room to have his lungs drained. He apparently was told by his primary doctor that he had an effusion and he needed to go to the hospital into the ER where he would have his lungs drained. Yesterday, I was called by Dr. Ivey. The patient came in because of some increasing difficulty breathing. He was concerned that he had reaccumulation of fluid in the left lung. Sure enough, a chest x-ray did show a moderate-sized left-sided pleural effusion. Ultrasound was done. Unfortunately, the patient is on Coumadin and his INR was 3. I actually told Dr. Ivey to go ahead and send the patient home and we would arrange for him to have the drainage procedure early next week after holding his Coumadin by Interventional Radiology. His last couple of procedures had been done by Interventional Radiology as he is a very difficult procedure. Anyway, the patient does not want to be in the hospital. He is not particularly short of breath. He is not receiving any supplemental oxygen. He does get short of breath when he exerts himself. He denies any coughing or wheezing. Denies any phlegm production. No fever or chills. No chest pain or chest discomfort. He is agreeable to going home, holding his Coumadin and following up with Interventional Radiology. HOME MEDICATIONS: Include eye drops, Glucophage, Coumadin, Lopressor, Pravachol, low-dose aspirin, omega- 3 acid, Lasix, Tylenol, hyaluronic acid, Aldactone, Flomax, and prednisolone eyedrops. ALLERGIES: PENICILLIN, CODEINE AND TAPE. MEDICAL HISTORY: Diabetes mellitus, deep venous thrombosis, hyperlipidemia, osteoarthritis, pulmonary embolism, coronary artery disease, shingles, and BPH. SURGICAL HISTORY: Includes among other things, bypass grafting, corneal transplant, thoracentesis x2 by Interventional Radiology, one by myself which was unsuccessful. SOCIAL HISTORY: Negative for tobacco use. No alcohol use or illicit drug use. FAMILY HISTORY: Positive for mother who is healthy, a brother with bone cancer and a father who had skin and bone cancer. REVIEW OF SYSTEMS: CONSTITUTIONAL negative. NEUROLOGIC negative. HEENT negative. CARDIOVASCULAR negative. PULMONARY: Mild shortness of breath particularly on exertion, not at rest. GI negative. negative. RHEUMATOLOGIC negative. IMMUNOLOGIC negative. ENDOCRINOLOGIC negative. DERMATOLOGIC negative. PHYSICAL EXAMINATION: VITAL SIGNS: Current vital signs are reviewed. His temperature is 98.1, heart rate 62, respiratory rate 16, blood pressure 128/70, mean 89, room air saturation 96%. He appears in no acute distress. HEENT examination is grossly unremarkable. Mucous membranes are moist. No oral lesions. NECK: Supple. Full range of motion. No adenopathy or thyromegaly. Neck veins are flat. CARDIOVASCULAR examination reveals regular rhythm and rate. S1, S2 normal. No S3, S4, or murmur. Heart rate 62 beats per minute. LUNGS: Reveal relatively good air flow in and out of both lungs. Slightly decreased at the left lung base. No wheezes, rhonchi, or crackles appreciated. Breath sounds are pretty much equal bilaterally everywhere but in that left lower lobe. ABDOMEN: Soft. Bowel sounds are heard. EXTREMITIES are intact. No cyanosis, clubbing, or edema. SKIN: Without rash. NEUROLOGIC examination is brief but nonfocal. LABS: Reviewed. White count 4.4, hemoglobin 12.3, hematocrit 37.5, platelet count 79,000. PT, INR were 28.4 and 2.9 today compared to 28.6 and 3.0 yesterday. Sodium 143, potassium 4.5, chloride 112, CO2 is 21 anion gap is 10, BUN and creatinine were 33 and 1.44. Albumin 3.4. The chest x-ray shows left basilar airspace disease and left pleural effusion. It is unchanged from the previous x-ray. The chest ultrasound shows a modest amount of fluid in the left pleural space. ASSESSMENT: 1. Left pleural effusion, recurrent, status post multiple thoracenteses primarily by Interventional Radiology. 2. History of diabetes mellitus. 3. Deep venous thrombosis. 4. History of hyperlipidemia. 5. Degenerative joint disease. 6. Benign prostatic hypertrophy. 7. History of pulmonary embolism. 8. Coronary artery disease, status post bypass grafting. PLAN: The patient will hold the Coumadin. We will get him set up for interventional Radiology to do the procedure sometime early next week. He is a high risk patient for a couple reasons. His body habitus is such that the pocket is deep. In addition, he is on Coumadin. Finally, he has chronic liver disease, chronic kidney disease, and he is thrombocytopenic. All those issues make him a high risk patient. Additional recommendations and suggestions are forthcoming. We did speak to Dr. Long. The patient is agreeable with going home. No additional recommendations are made. MMODL / IJN: [id number] /
[2019-01-27] MEDS ORDERED: WARFARIN 5 MG TAB PO ONE ×2 (18:00)
[2019-01-27] MEDS ORDERED: WARFARIN 7.5 MG TAB PO SCH (18:00)
--- NOTE | 2019-01-28 17:30 | P.DS ---
Providers Date of admission: 01/26/19 16:54 Expected date of discharge: 01/27/19 Attending physician: Gordon Long Consults: 01/26/19 16:47 Consult Physician Urgent Consulting Provider: Nathaniel Aviles Consult Reason/Comments: pleural effusion Do you want consulting provider notified?: Yes 01/26/19 21:55 Consult Physician Routine Consulting Provider: Mingo Torres Consult Reason/Comments: poss chf Do you want consulting provider notified?: Yes 01/26/19 21:56 Consult Physician Routine Consulting Provider: Dana Louise Consult Reason/Comments: DOMINICK Do you want consulting provider notified?: Yes Primary care physician: Sage Marques Cook Hospital Course: Chief Complaint: Shortness of breath History of presenting complaint: This is a pleasant 83-year-old patient who follows a DrObed Parks. 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 Other chronic stable medical conditions include coronary artery disease, primary osteoarthritis, BPH, hyperlipidemia, bilateral nephrolithiasis, or do cholelithiasis. Patient's had recurrent left pleural effusion causes unknown. Patient in May of this year did undergo thoracentesis and cytology was negative. Patient's last thoracentesis was 2 weeks ago. Patient does follow with Dr. Yancey of the [facility]. Patient also follows with Dr. Pickett the supervisor correspondence section. Patient now presents with increasing shortness of breath. Increasing edema. Appetite is okay. No fever no chills. Lives by himself. Patient is seen by Dr. Yancey from pulmonary. He okayed the patient for discharge. Interventional radiology will do thoracentesis as an outpatient. She'll being coordinated by Dr. Yancey. Also seen by oncology. No further intervention. Consultation: Dr. Yancey from pulmonary Dr. ANN MARIE Shearer from oncology Physical examination: VITAL SIGNS: 96.5, 56, 16, 103/53, 98% room air GENERAL: Sitting up comfortable. EYES: Pupils equal. Conjunctiva normal. HEENT: External appearance of nose and ears normal, oral cavity grossly normal. NECK: JVD possibly raised; masses not palpable. HEART: First and second heart sounds are normal; edema present. LUNGS: Respiratory rate increased; diminished breath sounds on the left side posteriorly. ABDOMEN: Soft, nontender, liver spleen not palpable, no masses palpable. PSYCH: Alert and oriented x3; mood and affect normal. INVESTIGATIONS, reviewed in the clinical context: Potassium 4.4 hemoglobin 12.3 platelets 79 pro time 28.6 potassium 4.5. And 33 crit 1.44 EKG tracings-poor R-wave progression 2-D echo from February 2018 shows EF of 55-60%, moderate pulmonary hypertension, moderate pulmonary regurgitation Assessment: --Cryptogenic cirrhosis with portal hypertension leading 2 hepatosplenomegaly and secondary ascites -Coronary artery disease -Primary osteoarthritis -BPH -Hyperlipidemia -Bilateral nephrolithiasis -Recurrent left pleural effusion cause noncontributory. Thoracentesis loss of being 2 weeks ago -Thrombocytopenia due to cirrhosis -Prolonged pro time due to cirrhosis Plan: Disposition home Patient Condition at Discharge: Stable Plan - Discharge Summary Discharge Rx Participant: No New Discharge Prescriptions: New Warfarin [Coumadin] 5 mg PO MOWEFR #30 tab Continue Dorzolamide 2% [Trusopt 2%] 1 drops LEFT EYE TID metFORMIN HCL [Glucophage] 500 mg PO AC-TID Latanoprost [Xalatan 0.005%] 1 drop BOTH EYES HS Pravastatin Sodium [Pravachol] 40 mg PO HS Metoprolol Tartrate [Lopressor] 50 mg PO BID Aspirin EC [Ecotrin Low Dose] 81 mg PO DAILY [place]-3 Fatty Acids/Fish Oil [Fish Oil 1,000 mg Softgel] 1 cap PO TID Furosemide [Lasix] 40 mg PO DAILY Spironolactone 100 mg PO DAILY Acetaminophen Tab [Tylenol] 650 mg PO Q6H PRN PRN Reason: Pain Or Fever > 100.5 prednisoLONE [prednisoLONE Oral Soln] 1 drop BOTH EYES MOTH Tamsulosin [Flomax] 0.4 mg PO DAILY Hyaluronic Acid 100 mg PO BID Changed Warfarin Sodium [Coumadin] 7.5 mg PO SUTUTHSA #0 Discharge Medication List Dorzolamide 2% [Trusopt 2%] 1 drops LEFT EYE TID 08/06/16 [History] Latanoprost [Xalatan 0.005%] 1 drop BOTH EYES HS 08/09/16 [History] metFORMIN HCL [Glucophage] 500 mg PO AC-TID 08/09/16 [History] Metoprolol Tartrate [Lopressor] 50 mg PO BID 03/16/18 [History] Pravastatin Sodium [Pravachol] 40 mg PO HS 03/16/18 [History] Aspirin EC [Ecotrin Low Dose] 81 mg PO DAILY 03/17/18 [History] [place]-3 Fatty Acids/Fish Oil [Fish Oil 1,000 mg Softgel] 1 cap PO TID 04/26/18 [History] Furosemide [Lasix] 40 mg PO DAILY 01/04/19 [History] Acetaminophen Tab [Tylenol] 650 mg PO Q6H PRN 01/26/19 [History] Hyaluronic Acid 100 mg PO BID 01/26/19 [History] Spironolactone 100 mg PO DAILY 01/26/19 [History] Tamsulosin [Flomax] 0.4 mg PO DAILY 01/26/19 [History] prednisoLONE [prednisoLONE Oral Soln] 1 drop BOTH EYES MOTH 01/26/19 [History] Warfarin Sodium [Coumadin] 7.5 mg PO SUTUTHSA #0 01/27/19 [Rx] Warfarin [Coumadin] 5 mg PO MOWEFR #30 tab 01/27/19 [Rx] Follow up Appointment(s)/Referral(s): Sage Parks MD [Primary Care Provider] - 1 Week Nathaniel Aviles DO [Doctor of Osteopathic Medicine] - 1 Week Nathan Casanova MD [STAFF PHYSICIAN] - 1 Week Patient Instructions/Handouts: Pleural Effusion (DC), Dyspnea (DC) Activity/Diet/Wound Care/Special Instructions: Diet as tolerated Activity limited until seen by Dr. Benites on hold Call the Radiology department in am on Tuesday to schedule for Thoracentesis on Tuesday or Tuesday... Discharge Disposition: HOME SELF-CARE
[2019-01-29] MEDS ORDERED: prednisoLONE ACETATE 1% OPHTH DROPS 5 ML BTL BOTH EYES SCH (09:00)
== END 2019-01-27 13:12 | disposition home or self-care (01) ==
LOC: EC 14:46 → 3NMEDONC 16:54
PROVIDERS: ADMIT Hospitalist; ATTEND Hospitalist
DX: J90 Pleural effusion, not elsewhere classified (principal); N17.9 Acute kidney failure, unspecified; D69.59 Other secondary thrombocytopenia; K74.69 Other cirrhosis of liver; K76.6 Portal hypertension; R16.2 Hepatomegaly with splenomegaly, not elsewhere classified; I27.20 Pulmonary hypertension, unspecified; R18.8 Other ascites; E11.22 Type 2 diabetes mellitus with diabetic chronic kidney disease; N18.9 Chronic kidney disease, unspecified; I25.10 Atherosclerotic heart disease of native coronary artery without angina pectoris; E78.5 Hyperlipidemia, unspecified; N40.0 Benign prostatic hyperplasia without lower urinary tract symptoms; N20.0 Calculus of kidney; K80.20 Calculus of gallbladder without cholecystitis without obstruction; M19.91 Primary osteoarthritis, unspecified site; H57.9 Unspecified disorder of eye and adnexa; Z79.82 Long term (current) use of aspirin; Z79.899 Other long term (current) drug therapy; Z79.01 Long term (current) use of anticoagulants; Z79.84 Long term (current) use of oral hypoglycemic drugs; Z86.711 Personal history of pulmonary embolism; Z86.718 Personal history of other venous thrombosis and embolism; Z95.1 Presence of aortocoronary bypass graft; Z87.891 Personal history of nicotine dependence; Z86.19 Personal history of other infectious and parasitic diseases; Z94.7 Corneal transplant status; Z88.0 Allergy status to penicillin; Z88.5 Allergy status to narcotic agent; Z91.048 Other nonmedicinal substance allergy status; Z80.8 Family history of malignant neoplasm of other organs or systems
CPT/HCPCS: 99285; 36415; 93005; 80053; 85025; 85610 ×2; 85730; 71045; 76604; G0378 ×3

== ENCOUNTER 2019-01-30 12:58 | Day surgery (SDC) | payer MEDICARE ==
[2019-01-30 13:14] VITALS: RESP 20; TEMP 95
[2019-01-30 13:38] LABS: Mean Platelet Volume 9.5
[2019-01-30 13:43] LABS: Platelet Count 94 k/uL (150-450)
[2019-01-30 13:50] LABS: INR 1.3 (<1.2)
[2019-01-30 15:12] VITALS: BP 100/52; PULSE 46
--- NOTE | 2019-01-30 15:22 | XR ---
EXAMINATION TYPE: XR chest 1V portable DATE OF EXAM: 01/30/2019 COMPARISON: Chest x-ray 3 days ago. HISTORY: Post left-sided thoracentesis TECHNIQUE: Single AP portable frontal upright view of the chest is obtained. FINDINGS: There is persistent moderate left-sided pleural fluid collection with associated left midl kaya atelectasis and/or infiltrate. Finding likely slightly improved. No mediastinal shift. Overlying sternal wires redemonstrated. Right lung remains clear. The cardiac silhouette size remains within n ormal limits. The osseous structures are intact. IMPRESSION: No pneumothorax after left-sided thoracentesis. Fairly moderate size residual left pleur al fluid collection.
--- NOTE | 2019-01-30 16:15 | US ---
EXAMINATION TYPE: US thoracentesis DATE OF EXAM: 01/30/2019 COMPARISON: NONE HISTORY: Pleural effusion. FINDINGS: Maximal barrier technique was utilized. The skin overlying a suitable pocket of fluid was localized and the overlying skin prepped and draped. Lidocaine was used for local anesthesia. Ultras ound was used with sterile technique. A 5 [place] catheter over guide needle was advanced into the pl eural fluid collection using ultrasound guidance and the catheter advanced, needle removed. Approxim ately 0.81 liter(s) of US fluid was removed. Catheter was withdrawn and hemostasis achieved. There is no immediate complication. The patient discharged in stable condition without complication. IMPRESSION: STATUS POST ULTRASOUND GUIDED THORACENTESIS, POST PROCEDURE CHEST X-RAY PENDING. THIS [place] OCEDURE WAS PERFORMED BY THE UNDERSIGNED. Specimen obtained for laboratory analysis.
[2019-01-30 21:48] LABS: Color,BF Red
[2019-01-30 21:49] LABS: Appearance,BF Bloody; Mononuclear WBC,Body Fluid 97 %; Nucleated Cells, Body Fluid 11200 /uL; Polynuclear WBC,Body Fluid 3 %; RBC, Body Fluid 102800 /uL
[2019-01-31 00:50] LABS: Total Protein, Body Fluid 1685 mg/dL
[2019-01-31 01:03] LABS: Glucose, BF Source Pleural Fluid; Glucose, Body Fluid 125 mg/dL; LDH, Body Fluid Source Pleural Fluid
== END 2019-01-30 15:30 | disposition home or self-care (01) ==
LOC: RADPROMAIN 12:58
PROVIDERS: ATTEND Internal Medicine Critical Care Medicine
DX: J90 Pleural effusion, not elsewhere classified (principal); Z88.5 Allergy status to narcotic agent; Z88.0 Allergy status to penicillin
CPT/HCPCS: 32555; 36415; 71045; 82945; 83615; 84157; 85049; 85610; 87070; 87075; 87116; 87205; 87206; 88108; 88305; 89050

== ENCOUNTER → 2019-04-11 | Outpatient (CLI) | payer MEDICARE ==
--- NOTE | 2019-04-11 08:02 | US ---
EXAMINATION TYPE: US chest DATE OF EXAM: 04/11/2019 COMPARISON: US 2019 CLINICAL HISTORY: J90 Pleural effusion. Pleural effusion TECHNIQUE: Targeted ultrasound of the posterior lower left hemithorax EXAM MEASUREMENTS: Left Pleural Effusion pocket size: 6.7 cm Left skin surface to fluid distance: 3.4 cm Left side MARKED for possible thoracentesis outside the dept. Pulmonologists are able to review the images in the patient?s EMR. IMPRESSIONS: 1. Left pleural effusion may have loculations.
== END | disposition home or self-care (01) ==
LOC: RADUSWWP 07:39
PROVIDERS: ATTEND Family Medicine
DX: J90 Pleural effusion, not elsewhere classified (principal)
CPT/HCPCS: 76604

== ENCOUNTER → 2019-04-11 | Outpatient (CLI) | payer MEDICARE ==
[2019-04-11 08:34] LABS: Basophils % (A) 1 %; Eosinophils # (A) 0.1 k/uL (0-0.7); Eosinophils % (A) 4 %; HCT 34.9 % (39.0-53.0); HGB 11.2 gm/dL (13.0-17.5); Lymphocytes % (A) 27 %; MCH 32.9 pg (25.0-35.0); MCV 102.8 fL (80.0-100.0); Macrocytosis Slight; Mean Platelet Volume 10.6; Monocytes # (A) 0.2 k/uL (0-1.0); Monocytes % (A) 7 %; Neutrophils # (A) 2.2 k/uL (1.3-7.7); Neutrophils % (A) 60 %; RDW 14.9 % (11.5-15.5); WBC 3.6 k/uL (3.8-10.6)
[2019-04-11 08:41] LABS: INR 1.8 (<1.2); Prothrombin Time 17.7 sec (9.0-12.0)
[2019-04-11 08:52] LABS: ALT 27 U/L (4-49); AST 37 U/L (17-59); African American GFR (CKD) 54 (>60 ml/min/1.73 sqM); Albumin 2.9 g/dL (3.5-5.0); Alkaline Phosphatase 109 U/L (38-126); Anion Gap 7 mmol/L; Blood Urea Nitrogen 21 mg/dL (9-20); Calcium 8.7 mg/dL (8.4-10.2); Carbon Dioxide 26 mmol/L (22-30); Chloride 109 mmol/L (98-107); Glucose 165 mg/dL (74-99); Non-African American GFR(CKD) 47 (>60 ml/min/1.73 sqM); Potassium 4.2 mmol/L (3.5-5.1); Sodium 142 mmol/L (137-145); Total Protein 5.9 g/dL (6.3-8.2)
[2019-04-11 09:23] LABS: Platelet Count 64 k/uL (150-450)
== END | disposition home or self-care (01) ==
LOC: LABWHC1 07:43
PROVIDERS: ATTEND Internal Medicine
DX: K74.60 Unspecified cirrhosis of liver (principal); E11.9 Type 2 diabetes mellitus without complications; I48.91 Unspecified atrial fibrillation; J90 Pleural effusion, not elsewhere classified
CPT/HCPCS: 36415; 80053; 82140; 83880; 85025; 85610

== ENCOUNTER → 2019-04-16 | Day surgery (SDC) | payer MEDICARE ==
[2019-04-16 09:51] LABS: Mean Platelet Volume 10.4
[2019-04-16 09:54] LABS: INR 1.2 (<1.2); Prothrombin Time 11.8 sec (9.0-12.0)
[2019-04-16 09:55] LABS: Platelet Count 79 k/uL (150-450)
[2019-04-16 10:29] VITALS: TEMP 97.5
[2019-04-16 10:31] VITALS: RESP 20
--- NOTE | 2019-04-16 11:10 | XR ---
EXAMINATION TYPE: XR chest 1V DATE OF EXAM: 04/16/2019 HISTORY: Status post left-sided thoracentesis COMPARISON: 01/30/2019 TECHNIQUE: Single view of the chest is submitted. FINDINGS: No evidence for left-sided pneumothorax. Persistent pleural effusion noted. Cannot exclude underlying infiltrate atelectasis or mass. The heart is stable. Hilar and mediastinal structures are within normal limits. Degenerative changes are seen of the dorsal spine. IMPRESSION: 1. No evidence for pneumothorax status post thoracentesis
[2019-04-16 11:20] VITALS: BP 104/60; PULSE 46
[2019-04-16 15:33] LABS: Appearance,BF Bloody
[2019-04-16 15:34] LABS: Nucleated Cells, Body Fluid 889 /uL; RBC, Body Fluid 2634000 /uL
[2019-04-16 15:36] LABS: Mononuclear WBC,Body Fluid 92 %; Polynuclear WBC,Body Fluid 6 %; Total Cells Counted,Body Fluid 100
--- NOTE | 2019-04-16 16:07 | US ---
EXAMINATION TYPE: US thoracentesis DATE OF EXAM: 04/16/2019 COMPARISON: NONE HISTORY: Pleural effusion. FINDINGS: Maximal barrier technique was utilized. The skin overlying a suitable pocket of fluid was localized and the overlying skin prepped and draped. Lidocaine was used for local anesthesia. Ultras ound was used with sterile technique. A 5 Italian catheter over guide needle was advanced into the pl eural fluid collection using ultrasound guidance the catheter advanced, needle removed. Approximatel y 0.8 liter(s) of serous sanguinous fluid was removed. Catheter was withdrawn and hemostasis achieve d. There is no immediate complication. The patient discharged in stable condition without complicat ion. IMPRESSION: STATUS POST ULTRASOUND GUIDED THORACENTESIS, POST PROCEDURE CHEST X-RAY PENDING. THIS [place] OCEDURE WAS PERFORMED BY THE UNDERSIGNED. Specimen sent for laboratory analysis.
[2019-04-16 22:46] LABS: Glucose, BF Source Pleural Fluid; Glucose, Body Fluid 120 mg/dL; LDH, Body Fluid Source Pleural Fluid; Total Protein, Body Fluid 1600 mg/dL
== END ==
LOC: RADPROMAIN 08:44
PROVIDERS: ATTEND Internal Medicine Critical Care Medicine
DX: J90 Pleural effusion, not elsewhere classified (principal); Z88.5 Allergy status to narcotic agent; Z88.0 Allergy status to penicillin
CPT/HCPCS: 32555; 36415; 71045; 82945; 83615; 84157; 85049; 85610; 87070; 87075; 87116; 87205; 87206; 88108; 88305; 89050

== ENCOUNTER 2019-11-15 15:23 | Inpatient (IN) | payer MEDICARE ==
--- NOTE | 2019-11-15 15:57 | ED ---
SOB HPI - General Chief Complaint: Shortness of Breath Stated Complaint: infection in urine Time Seen by Provider: 11/15/19 15:40 Source: patient, RN notes reviewed, old records reviewed Mode of arrival: ambulatory Limitations: no limitations - History of Present Illness Initial Comments: This is an 84-year-old male DF for evaluation patient presents today for evaluation regards to multiple, symptomatic primary care for recurrent pleural effusion renal failure and urinary tract infection patient is fully placed. Patient self is complaining of weakness immobility any new with have developing sacral ulcer MD Complaint: shortness of breath, pain with inspiration -: days(s) Severity: moderate Severity scale (1-10): 5 Consistency: constant Improves With: nothing Worsens With: nothing Known History Of: other (Recurrent effusions) Context: recent URI Associated Symptoms: fever, cough Treatments Prior to Arrival: none - Related Data Home Medications Medication Instructions Recorded Confirmed Dorzolamide 2% [Trusopt 2%] 1 drops LEFT EYE TID 08/06/16 04/16/19 Latanoprost [Xalatan 0.005%] 1 drop BOTH EYES HS 08/09/16 04/16/19 metFORMIN HCL [Glucophage] 500 mg PO AC-TID 08/09/16 04/16/19 Metoprolol Tartrate [Lopressor] 50 mg PO BID 03/16/18 04/16/19 Pravastatin Sodium [Pravachol] 40 mg PO HS 03/16/18 04/16/19 Aspirin EC [Ecotrin Low Dose] 81 mg PO DAILY 03/17/18 04/16/19 [place]-3 Fatty Acids/Fish Oil [Fish 1 cap PO TID 04/26/18 04/16/19 Oil 1,000 mg Softgel] Furosemide [Lasix] 40 mg PO DAILY 01/04/19 04/16/19 Hyaluronic Acid 100 mg PO BID 01/26/19 04/16/19 Spironolactone 100 mg PO DAILY 01/26/19 04/16/19 Tamsulosin [Flomax] 0.4 mg PO DAILY 01/26/19 04/16/19 prednisoLONE [prednisoLONE Oral 1 drop BOTH EYES MOTH 01/26/19 04/16/19 Soln] Previous Rx's Medication Instructions Recorded Warfarin Sodium [Coumadin] 7.5 mg PO SUTUTHSA #0 01/27/19 Warfarin [Coumadin] 5 mg PO MOWEFR #30 tab 01/27/19 Allergies Allergy/AdvReac Type Severity Reaction Status Date / Time Penicillins Allergy Rash/Hives Verified 11/15/19 15:34 codeine AdvReac Hallucinati Verified 11/15/19 15:34 ons tape AdvReac Rash/Hives Uncoded 04/16/19 09:43 Review of Systems ROS Statement: Those systems with pertinent positive or pertinent negative responses have been documented in the HPI. ROS Other: All systems not noted in ROS Statement are negative. Past Medical History Past Medical History: Diabetes Mellitus, Deep Vein Thrombosis (DVT), Eye Disorder, Hyperlipidemia, Liver Disease, Osteoarthritis (OA), Prostate Disorder, Pulmonary Embolus (PE), Renal Disease Additional Past Medical History / Comment(s): Three-vessel coronary artery disease, shingles, Cirrhosis History of Any Multi-Drug Resistant Organisms: None Reported Past Surgical History: Coronary Bypass/CABG Additional Past Surgical History / Comment(s): corneal transplant, thoracentesis Past Anesthesia/Blood Transfusion Reactions: No Reported Reaction Past Psychological History: No Psychological Hx Reported Smoking Status: Never smoker Past Alcohol Use History: None Reported Past Drug Use History: None Reported - Past Family History Mother Family Medical History: No Reported History Brother(s) Family Medical History: Cancer Additional Family Medical History / Comment(s): bone cancer Father Family Medical History: Cancer Additional Family Medical History / Comment(s): skin/bone cancer General Exam Limitations: no limitations General appearance: alert, in no apparent distress, anxious Head exam: Present: atraumatic, normocephalic, normal inspection Eye exam: Present: normal appearance, PERRL, EOMI. Absent: scleral icterus, conjunctival injection, periorbital swelling ENT exam: Present: normal exam, mucous membranes moist Neck exam: Present: normal inspection. Absent: tenderness, meningismus, lymphadenopathy Respiratory exam: Present: normal lung sounds bilaterally. Absent: respiratory distress, wheezes, rales, rhonchi, stridor Cardiovascular Exam: Present: normal rhythm, bradycardia, normal heart sounds. Absent: systolic murmur, diastolic murmur, rubs, gallop, clicks GI/Abdominal exam: Present: soft, normal bowel sounds. Absent: distended, tenderness, guarding, rebound, rigid Extremities exam: Present: normal inspection, full ROM, normal capillary refill. Absent: tenderness, pedal edema, joint swelling, calf tenderness Back exam: Present: normal inspection Neurological exam: Present: alert, oriented X3, CN II-XII intact Psychiatric exam: Present: normal affect, normal mood Skin exam: Present: warm, dry, intact, normal color. Absent: rash Course Vital Signs 11/15/19 11/15/19 11/15/19 15:34 16:00 16:30 Temperature 97 F L Pulse Rate 51 L 54 L 58 L Respiratory 18 Rate Blood Pressure 84/49 95/59 91/55 O2 Sat by Pulse 97 95 96 Oximetry 11/15/19 17:30 Temperature Pulse Rate 61 Respiratory Rate Blood Pressure 112/62 O2 Sat by Pulse 99 Oximetry - Reevaluation(s) Reevaluation #1: 11/15/19 16:11 Medical records reviewed Medical Decision Making - Lab Data Result diagrams: 11/15/19 16:31 11/15/19 16:31 - EKG Data -: EKG Interpreted by Me (EKG is sinus rhythm 61 SD 166 QRS 76 QTc 453) Critical Care Time Critical Care Time: Yes Total Critical Care Time: 31 Disposition Clinical Impression: Dyspnea, Pleural effusion, Bradycardia, UTI (urinary tract infection), Pleural effusion on left, ARF (acute renal failure), Hyperkalemia Disposition: ADMITTED IP TO THIS HOSP Condition: Serious Is patient prescribed a controlled substance at d/c from ED?: No
[2019-11-15] MEDS ORDERED: SODIUM CHLORIDE 0.9% 1,000 ML IV STA ×2 (16:03)
[2019-11-15] MEDS ORDERED: NALOXONE 0.4 MG/ML 1 ML VIAL IV PRN (16:03)
[2019-11-15] MEDS ORDERED: SODIUM CHLORIDE 0.9% 500 ML 500 ML IV STA (16:03)
[2019-11-15] MEDS ORDERED: SODIUM CHLORIDE 0.9% 1,000 ML IV SCH (16:15)
[2019-11-15 16:52] LABS: Appearance,Urine Turbid (Clear); Bacteria,Urine Many /hpf; Bilirubin,Urine Negative (Negative); Blood,Urine Moderate (Negative); Color,Urine Yellow; Glucose,Urine (UA) Negative (Negative); INR 1.3 (<1.2); Ketones,Urine Negative (Negative); Leukocyte Esterase,Urine Large (Negative); Nitrite,Urine Negative (Negative); PH, Urine 5.5 (5.0-8.0); Partial Thromboplastin Time 24.2 sec (22.0-30.0); Protein,Urine 2+ (Negative); Prothrombin Time 13.2 sec (9.0-12.0); RBC,Urine 67 /hpf (0-5); Specific Gravity,Urine 1.018 (1.001-1.035); Urobilinogen,Urine <2.0 mg/dL (<2.0); WBC,Urine >182 /hpf (0-5)
[2019-11-15 16:53] LABS: Albumin 3.4 g/dL (3.5-5.0); Calcium 9.7 mg/dL (8.4-10.2); Magnesium 2.5 mg/dL (1.6-2.3); Phosphorus 5.1 mg/dL (2.5-4.5); Potassium 5.9 mmol/L (3.5-5.1); Total Bilirubin 1.8 mg/dL (0.2-1.3); Total Protein 6.6 g/dL (6.3-8.2)
[2019-11-15 17:02] LABS: Basophils % (A) 1 %; Eosinophils # (A) 0.1 k/uL (0-0.7); Eosinophils % (A) 1 %; HCT 46.2 % (39.0-53.0); HGB 15.1 gm/dL (13.0-17.5); Lymphocytes # (A) 1.1 k/uL (1.0-4.8); Lymphocytes % (A) 15 %; MCH 32.7 pg (25.0-35.0); MCHC 32.7 g/dL (31.0-37.0); MCV 99.9 fL (80.0-100.0); Macrocytosis Slight; Mean Platelet Volume 9.1; Monocytes # (A) 0.5 k/uL (0-1.0); Monocytes % (A) 7 %; Neutrophils # (A) 5.6 k/uL (1.3-7.7); Neutrophils % (A) 76 %; RBC 4.62 m/uL (4.30-5.90); WBC 7.4 k/uL (3.8-10.6)
[2019-11-15 17:26] LABS: Platelet Count 91 k/uL (150-450)
--- NOTE | 2019-11-15 17:42 | XR ---
EXAMINATION TYPE: XR chest 2V DATE OF EXAM: 11/15/2019 COMPARISON: 11/15/2019 HISTORY: Weakness TECHNIQUE: 2 views FINDINGS: There is large left pleural effusion. There is no gross heart failure. Right lung is fairly clear. There are sternal wires. There is some infiltrate left lower lobe. Bony thorax appears intact . IMPRESSION: Moderate size left pleural effusion with left lower lobe infiltrate unchanged compared to exam earlier today. No obvious heart failure.
[2019-11-15] MEDS ORDERED: DEXTROSE 50% SYRINGE 50 ML IVP STA (18:13)
[2019-11-15] MEDS ORDERED: SODIUM BICARB 8.4% 50 ML SYR (1 MEQ/ML) IV STA (18:13)
[2019-11-15] MEDS ORDERED: INSULIN REGULAR 100 UNIT/ML VIAL IV ONE (18:13)
[2019-11-15] MEDS ORDERED: DEXTROSE 5% IN WATER 1,000 ML with SODIUM BICARB (1 MEQ/ML) 50 ML IV SCH (18:15)
[2019-11-15 19:46] LABS: Glucose,Whole Blood 261 mg/dL (75-99)
[2019-11-15] MEDS: DORZOLAMIDE HCL 2% DROPS 10 ML BTL LEFT EYE SCH (22:22)
[2019-11-15] MEDS: LATANOPROST 0.005% OPHTH DROPS 2.5 ML BTL BOTH EYES SCH (22:22)
[2019-11-15] MEDS: TAMSULOSIN 0.4 MG CAP.ER.24H PO SCH (22:22)
[2019-11-15] MEDS: METOPROLOL TARTRATE 50 MG TAB PO SCH (22:24)
[2019-11-15 23:52] LABS: Glucose,Whole Blood 261 mg/dL (75-99)
[2019-11-15] MEDS: INSULIN ASPART (NovoLOG) 100 UNIT/ML VIAL SQ SCH (23:58)
[2019-11-16 00:28] LABS: Calcium 8.8 mg/dL (8.4-10.2)
--- NOTE | 2019-11-16 00:31 | P.HPIM ---
History of Present Illness H&P Date: 11/15/19 Chief Complaint: worsening shortness of breath 84-year-old male with history of venous thromboembolic exam on Coumadin, diabetes mellitus on insulin Patient comes in today due to 2 week history of worsening shortness of breath patient reports that his problems with breathing started since 2018 he does not give me any specific diagnosis he is not on any supplemental oxygen since 2018 he had fluids reaccumulating around his lungs requiring thoracentesis about 7 times since then. He reports at baseline he is able to walk around his home with no limitations however over the past 2 weeks he's been getting worsening shortness of breath even while sitting down doing nothing he's been sleeping in his chair unable to get up or do anything he noticed new onset orthopnea and paroxysmal nocturnal dyspnea. Reports some swelling in bilateral legs toward the end of the day if he keeps his feet down. He has history of open heart surgery back in 2017. He's been placed on diuretics and has had Thornton catheter in place for over a month now which was replaced about 3 days ago with his doctor in the outpatient office he also reports chronic kidney disease. Otherwise he lives alone he denies any fevers or chills he currently denies any chest pain he denies any chest pain at home he denies using any supplemental oxygen he denies any coughing denies any nausea or vomiting denies any loss of smell or taste sensation denies any changes in his medications denies any recent traveling or hospitalization. Denies any GI bleeding. He claims that he has a large bedsore due to sitting down and not moving he has seen it on pictures taken to the sore he has a home health care with a visiting nurse that comes every day to check on him however his camera on the phone did not work and he could not show me the ulcer patient felt very weak and tired he couldn't get up or roll over to show me the ulcer at this time In the ED patient was found to have worsening renal function and slightly elevated potassium at 5.9 patient was admitted for further care and evaluation by pulmonary service Medical records reviewed and seems like patient has no definite diagnosis of his recurrent pleural effusion 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 All other systems were reviewed and are negative Past Medical History Past Medical History: Diabetes Mellitus, Deep Vein Thrombosis (DVT), Eye Disorder, Hyperlipidemia, Liver Disease, Osteoarthritis (OA), Prostate Disorder, Pulmonary Embolus (PE), Renal Disease Additional Past Medical History / Comment(s): Three-vessel coronary artery disease, shingles, Cirrhosis History of Any Multi-Drug Resistant Organisms: None Reported Past Surgical History: Coronary Bypass/CABG Additional Past Surgical History / Comment(s): corneal transplant, thoracentesis Past Anesthesia/Blood Transfusion Reactions: No Reported Reaction Past Psychological History: No Psychological Hx Reported Smoking Status: Never smoker Past Alcohol Use History: None Reported Past Drug Use History: None Reported - Past Family History Mother Family Medical History: No Reported History Brother(s) Family Medical History: Cancer Additional Family Medical History / Comment(s): bone cancer Father Family Medical History: Cancer Additional Family Medical History / Comment(s): skin/bone cancer Medications and Allergies Home Medications Medication Instructions Recorded Confirmed Type Dorzolamide 2% [Trusopt 2%] 1 drops LEFT EYE TID 08/06/16 11/15/19 History Latanoprost [Xalatan 0.005%] 1 drop BOTH EYES HS 08/09/16 11/15/19 History metFORMIN HCL [Glucophage] 500 mg PO AC-TID 08/09/16 11/15/19 History Metoprolol Tartrate [Lopressor] 50 mg PO BID 03/16/18 11/15/19 History Pravastatin Sodium [Pravachol] 40 mg PO DAILY 03/16/18 11/15/19 History Furosemide [Lasix] 40 mg PO BID 01/04/19 11/15/19 History Spironolactone 50 mg PO BID 01/26/19 11/15/19 History Tamsulosin [Flomax] 0.4 mg PO HS 01/26/19 11/15/19 History Allopurinol [Zyloprim] 100 mg PO DAILY 11/15/19 11/15/19 History Warfarin [Coumadin] 5 mg PO Q48H 11/15/19 11/15/19 History Allergies Allergy/AdvReac Type Severity Reaction Status Date / Time Penicillins Allergy Rash/Hives Verified 11/15/19 15:34 codeine AdvReac Hallucinati Verified 11/15/19 15:34 ons tape AdvReac Rash/Hives Uncoded 04/16/19 09:43 Physical Exam Vitals: Vital Signs Temp Pulse Pulse Resp BP BP Pulse Ox 11/15/19 20:00 97.3 F L 63 16 102/55 99 11/15/19 17:30 61 112/62 99 11/15/19 16:30 58 L 91/55 96 11/15/19 16:00 54 L 95/59 95 11/15/19 15:34 97 F L 51 L 18 84/49 97 Intake and Output 11/15/19 11/15/19 11/15/19 06:59 14:59 22:59 Other: Voiding Method Indwelling Catheter Weight 89.811 kg Constitutional: No acute distress, conversant, pleasant Eyes: Anicteric sclerae, moist conjunctiva, Pupils equal round reactive to light ENMT: NC/AT Oropharynx clear, no erythema, or exudates Neck: Supple, FROM, no masses, or JVD No carotid bruits No thyromegaly Lungs: Decreased breath sounds over left mid and lower lung compared to the right side otherwise no wheezing or rhonchi Decreased noted to percussion over the left lower lung Normal respiratory effort, no accessory muscle use Cardiovascular: Heart regular in rate and rhythm, No murmurs, gallops, or rubs +1 bilateral peripheral edema Abdominal: Mild distention Nontender, no guarding, rebound or rigidity Abdomen moving with respiration Normoactive bowel sounds No palpable mass No abdominal wall hernia noted Skin: Normal temperature, tone, texture, turgor No induration No subcutaneous nodules No rash, lesions No ulcers Extremities: No digital cyanosis No clubbing Pedal pulses intact and symmetrical Radial pulses intact and symmetrical No calf tenderness Psychiatric: Alert and oriented to person, place Appropriate affect fair judgement Neuro Muscles Strength 4/5 in all 4 extremities Sensation to light touch grossly present throughout Cranial nerves II-XII grossly intact No focal sensory deficits Lymphatics: no palpable cervical or supraclavicular , or inguinal lymph nodes Results CBC & Chem 7: 11/15/19 16:31 11/15/19 16:31 Labs: Abnormal Lab Results - Last 24 Hours (Table) 11/15/19 11/15/19 11/15/19 Range/Units 16:31 16:31 16:31 Plt Count 91 L (150-450) k/uL PT 13.2 H (9.0-12.0) sec INR 1.3 H (<1.2) Sodium (137-145) mmol/L Potassium (3.5-5.1) mmol/L Carbon Dioxide (22-30) mmol/L BUN (9-20) mg/dL Creatinine (0.66-1.25) mg/dL Glucose (74-99) mg/dL POC Glucose (mg/dL) (75-99) mg/dL Phosphorus (2.5-4.5) mg/dL Magnesium (1.6-2.3) mg/dL Total Bilirubin (0.2-1.3) mg/dL Alkaline Phosphatase (38-126) U/L Creatine Kinase (55-170) U/L Albumin (3.5-5.0) g/dL Urine Protein 2+ H (Negative) Urine Blood Moderate H (Negative) Ur Leukocyte Esterase Large H (Negative) Urine RBC 67 H (0-5) /hpf Urine WBC >182 H (0-5) /hpf Urine WBC Clumps Many H (None) /hpf Urine Bacteria Many H (None) /hpf 11/15/19 11/15/19 Range/Units 16:31 19:45 Plt Count (150-450) k/uL PT (9.0-12.0) sec INR (<1.2) Sodium 132 L (137-145) mmol/L Potassium 5.9 H (3.5-5.1) mmol/L Carbon Dioxide 18 L (22-30) mmol/L BUN 109 H* (9-20) mg/dL Creatinine 4.64 H (0.66-1.25) mg/dL Glucose 261 H (74-99) mg/dL POC Glucose (mg/dL) 261 H (75-99) mg/dL Phosphorus 5.1 H (2.5-4.5) mg/dL Magnesium 2.5 H (1.6-2.3) mg/dL Total Bilirubin 1.8 H (0.2-1.3) mg/dL Alkaline Phosphatase 150 H (38-126) U/L Creatine Kinase 35 L (55-170) U/L Albumin 3.4 L (3.5-5.0) g/dL Urine Protein (Negative) Urine Blood (Negative) Ur Leukocyte Esterase (Negative) Urine RBC (0-5) /hpf Urine WBC (0-5) /hpf Urine WBC Clumps (None) /hpf Urine Bacteria (None) /hpf Assessment and Plan Assessment: Recurrent left-sided pleural effusion with dyspnea Pulmonary consultation possible thoracentesis Check echocardiogram Supplemental oxygen as needed Elevate head of the bed Acute renal failure, nonoliguric Hold diuretics Avoid nephrotoxic meds IV fluid hydration Nephrology consult Follow-up renal function Thornton catheter care Hyperkalemia Patient received medications to lower potassium level Follow-up potassium level closely Evaluate bedsore when nursing staff available take pictures Wound care daily Rule out infectious source Acute urinary tract infection Start patient on Rocephin Patient refuses to replace Thornton catheter at this time patient had Thornton erl[facility] ter for one month he claims that this one was replaced 3 days ago Thornton catheter care Chronic condition Diabetes mellitus continue with insulin sliding scale BPH continue with Flomax Cryptogenic cirrhosis with portal hypertension with recurrent ascites Check abdominal ultrasound to evaluate for ascites History of Venous thromboembolism resume Coumadin Preformed a thorough record review from recent hospitalization in march 2019 CODE STATUS:full code DVT prophylaxis: on coumadin Discussed with: Patient, ER, RN Anticipated length of stay > than [address]: pending clinical course, patient lives alone, assess functional capacity once breathing improves A total of 75 minutes was spent on the care of this complex patient more than 50% of the time was spent in counseling and care coordination.
[2019-11-16] MEDS ORDERED: WARFARIN 7.5 MG TAB PO ONE (00:45)
[2019-11-16 06:13] LABS: Glucose,Whole Blood 170 mg/dL (75-99)
[2019-11-16] MEDS: INSULIN ASPART (NovoLOG) 100 UNIT/ML VIAL SQ SCH ×4 (07:53→20:55)
--- NOTE | 2019-11-16 07:57 | US ---
EXAMINATION TYPE: US abdomen limited DATE OF EXAM: 11/16/2019 COMPARISON: NONE CLINICAL HISTORY: ?ascitis. Possible ascites No evidence of ascites at this time IMPRESSION: Limited ultrasound for ascites demonstrates no sizable fluid collection.
[2019-11-16 08:09] LABS: Basophils % (A) 0 %; Eosinophils # (A) 0.1 k/uL (0-0.7); Eosinophils % (A) 2 %; HCT 38.1 % (39.0-53.0); HGB 12.4 gm/dL (13.0-17.5); Lymphocytes # (A) 1.2 k/uL (1.0-4.8); Lymphocytes % (A) 20 %; MCH 33.6 pg (25.0-35.0); MCHC 32.6 g/dL (31.0-37.0); MCV 103.1 fL (80.0-100.0); Macrocytosis Moderate; Mean Platelet Volume 9.3; Monocytes # (A) 0.5 k/uL (0-1.0); Monocytes % (A) 8 %; Neutrophils # (A) 3.9 k/uL (1.3-7.7); Neutrophils % (A) 68 %; RDW 15.4 % (11.5-15.5); WBC 5.8 k/uL (3.8-10.6)
[2019-11-16 08:15] LABS: Platelet Count 68 k/uL (150-450)
[2019-11-16 08:28] LABS: Albumin 2.5 g/dL (3.5-5.0); Calcium 8.3 mg/dL (8.4-10.2); Magnesium 2.2 mg/dL (1.6-2.3); Phosphorus 3.8 mg/dL (2.5-4.5); Potassium 5.1 mmol/L (3.5-5.1); Total Bilirubin 0.8 mg/dL (0.2-1.3); Total Protein 5.1 g/dL (6.3-8.2)
[2019-11-16] MEDS ORDERED: PANTOPRAZOLE 40 MG/10 ML VIAL IV SCH (09:00)
[2019-11-16] MEDS: PRAVASTATIN SODIUM 40 MG TAB PO SCH (09:42)
[2019-11-16] MEDS: METOPROLOL TARTRATE 50 MG TAB PO SCH (09:42)
[2019-11-16] MEDS: DORZOLAMIDE HCL 2% DROPS 10 ML BTL LEFT EYE SCH ×3 (09:43→20:59)
[2019-11-16] MEDS: METOPROLOL TARTRATE 25 MG TAB PO SCH ×2 (09:52→20:54)
--- NOTE | 2019-11-16 11:01 | P.PN ---
Subjective Progress Note Date: 11/16/19 Principal diagnosis: Shortness of breath Patient seen and examined at bedside. Patient's shortness of breath has improved since hospital stay. Patient denies chest pain at this time. Patient further denies nausea, vomiting, fevers, or chills. Patient was admitted due to 2 week history of worsening shortness of breath patient reports that his problems with breathing started since 2018 he does not give me any specific diagnosis he is not on any supplemental oxygen since 2018 he had fluids reaccumulating around his lungs requiring thoracentesis about 7 times since then. He reports at baseline he is able to walk around his home with no limitations however over the past 2 weeks he's been getting worsening shortness of breath even while sitting down doing nothing he's been sleeping in his chair unable to get up or do anything he noticed new onset orthopnea and paroxysmal nocturnal dyspnea. 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 Abdominal ultrasound completed on 11/16/19 demonstrated no sizable fluid collection. Objective - Vital Signs Vital signs: Vital Signs Temp 97.4 F L 11/16/19 08:00 Pulse 55 L 11/16/19 08:00 Resp 18 11/16/19 08:00 BP 97/50 11/16/19 08:00 Pulse Ox 99 11/16/19 08:00 Intake & Output 11/15/19 11/16/19 11/16/19 18:59 06:59 18:59 Intake Total 80 Output Total 1025 Balance -1025 80 Weight 89.811 kg 87 kg Intake: Oral 80 Output: Urine 1025 Other: Voiding Method Indwelling Catheter Indwelling Catheter # Voids 1 # Bowel Movements 1 - Exam General: [non toxic], [no distress], [appears at stated age] Derm: [warm], [dry] Head: [atraumatic], [normocephalic], [symmetric] Eyes: [EOMI], [no lid lag], [anicteric sclera] Mouth: [no lip lesion], [mucus membranes moist] Cardiovascular: [S1S2 reg], [no murmur], [positive posterior tibial pulse bilateral], Lungs: [Diminished breath sounds in left lower lobe], [no rhonchi, no rales] , [no accessory muscle use] Abdominal: [soft], [ nontender to palpation], [no guarding], [no appreciable organomegaly] Ext: [no gross muscle atrophy], [no edema], [no contractures] Neuro: [ CN II-XI grossly intact], [no focal neuro deficits] Psych: [Alert], [oriented], [appropriate affect] - Labs CBC & Chem 7: 11/16/19 07:14 11/16/19 07:14 Labs: Abnormal Lab Results - Last 24 Hours (Table) 11/15/19 11/15/19 11/15/19 Range/Units 16:31 16:31 16:31 RBC (4.30-5.90) m/uL Hgb (13.0-17.5) gm/dL Hct (39.0-53.0) % MCV (80.0-100.0) fL Plt Count 91 L (150-450) k/uL PT 13.2 H (9.0-12.0) sec INR 1.3 H (<1.2) Sodium (137-145) mmol/L Potassium (3.5-5.1) mmol/L Carbon Dioxide (22-30) mmol/L BUN (9-20) mg/dL Creatinine (0.66-1.25) mg/dL Glucose (74-99) mg/dL POC Glucose (mg/dL) (75-99) mg/dL Calcium (8.4-10.2) mg/dL Phosphorus (2.5-4.5) mg/dL Magnesium (1.6-2.3) mg/dL Total Bilirubin (0.2-1.3) mg/dL Alkaline Phosphatase (38-126) U/L Creatine Kinase (55-170) U/L Total Protein (6.3-8.2) g/dL Albumin (3.5-5.0) g/dL Urine Protein 2+ H (Negative) Urine Blood Moderate H (Negative) Ur Leukocyte Esterase Large H (Negative) Urine RBC 67 H (0-5) /hpf Urine WBC >182 H (0-5) /hpf Urine WBC Clumps Many H (None) /hpf Urine Bacteria Many H (None) /hpf 11/15/19 11/15/19 11/15/19 Range/Units 16:31 19:45 23:31 RBC (4.30-5.90) m/uL Hgb (13.0-17.5) gm/dL Hct (39.0-53.0) % MCV (80.0-100.0) fL Plt Count (150-450) k/uL PT (9.0-12.0) sec INR (<1.2) Sodium 132 L 132 L (137-145) mmol/L Potassium 5.9 H (3.5-5.1) mmol/L Carbon Dioxide 18 L 16 L (22-30) mmol/L BUN 109 H* 107 H* (9-20) mg/dL Creatinine 4.64 H 4.18 H (0.66-1.25) mg/dL Glucose 261 H 264 H (74-99) mg/dL POC Glucose (mg/dL) 261 H (75-99) mg/dL Calcium (8.4-10.2) mg/dL Phosphorus 5.1 H (2.5-4.5) mg/dL Magnesium 2.5 H (1.6-2.3) mg/dL Total Bilirubin 1.8 H (0.2-1.3) mg/dL Alkaline Phosphatase 150 H (38-126) U/L Creatine Kinase 35 L (55-170) U/L Total Protein (6.3-8.2) g/dL Albumin 3.4 L (3.5-5.0) g/dL Urine Protein (Negative) Urine Blood (Negative) Ur Leukocyte Esterase (Negative) Urine RBC (0-5) /hpf Urine WBC (0-5) /hpf Urine WBC Clumps (None) /hpf Urine Bacteria (None) /hpf 11/15/19 11/16/19 11/16/19 Range/Units 23:48 06:12 07:14 RBC 3.70 L (4.30-5.90) m/uL Hgb 12.4 L (13.0-17.5) gm/dL Hct 38.1 L (39.0-53.0) % MCV 103.1 H (80.0-100.0) fL Plt Count 68 L (150-450) k/uL PT (9.0-12.0) sec INR (<1.2) Sodium (137-145) mmol/L Potassium (3.5-5.1) mmol/L Carbon Dioxide (22-30) mmol/L BUN (9-20) mg/dL Creatinine (0.66-1.25) mg/dL Glucose (74-99) mg/dL POC Glucose (mg/dL) 261 H 170 H (75-99) mg/dL Calcium (8.4-10.2) mg/dL Phosphorus (2.5-4.5) mg/dL Magnesium (1.6-2.3) mg/dL Total Bilirubin (0.2-1.3) mg/dL Alkaline Phosphatase (38-126) U/L Creatine Kinase (55-170) U/L Total Protein (6.3-8.2) g/dL Albumin (3.5-5.0) g/dL Urine Protein (Negative) Urine Blood (Negative) Ur Leukocyte Esterase (Negative) Urine RBC (0-5) /hpf Urine WBC (0-5) /hpf Urine WBC Clumps (None) /hpf Urine Bacteria (None) /hpf 11/16/19 Range/Units 07:14 RBC (4.30-5.90) m/uL Hgb (13.0-17.5) gm/dL Hct (39.0-53.0) % MCV (80.0-100.0) fL Plt Count (150-450) k/uL PT (9.0-12.0) sec INR (<1.2) Sodium 133 L (137-145) mmol/L Potassium (3.5-5.1) mmol/L Carbon Dioxide 20 L (22-30) mmol/L BUN 93 H (9-20) mg/dL Creatinine 3.64 H (0.66-1.25) mg/dL Glucose 166 H (74-99) mg/dL POC Glucose (mg/dL) (75-99) mg/dL Calcium 8.3 L (8.4-10.2) mg/dL Phosphorus (2.5-4.5) mg/dL Magnesium (1.6-2.3) mg/dL Total Bilirubin (0.2-1.3) mg/dL Alkaline Phosphatase 127 H (38-126) U/L Creatine Kinase (55-170) U/L Total Protein 5.1 L (6.3-8.2) g/dL Albumin 2.5 L (3.5-5.0) g/dL Urine Protein (Negative) Urine Blood (Negative) Ur Leukocyte Esterase (Negative) Urine RBC (0-5) /hpf Urine WBC (0-5) /hpf Urine WBC Clumps (None) /hpf Urine Bacteria (None) /hpf Microbiology - Last 24 Hours (Table) 11/15/19 16:31 Urine Culture - Preliminary Urine,Voided Assessment and Plan Assessment: 1. Recurrent left-sided pleural effusion with dyspnea Pulmonary recommendations appreciated thoracentesis with fluid analysis echocardiogram pending Supplemental oxygen as needed Elevate head of the bed 2. Acute renal failure, nonoliguric Hold diuretics Avoid nephrotoxic meds IV fluid hydration Nephrology recommendations appreciated Creatinine has improved from or 4.18 to 3.64 Thornton catheter care 3. Hyperkalemia resolved Patient received medications to lower potassium level Follow-up potassium level closely 4. Evaluate bedsore when nursing staff available take pictures Wound care daily Rule out infectious source 5. Acute urinary tract infection IV Rocephin Rocephin Patient refuses to replace Thornton catheter at this time patient had Thornton catheter for one month he claims that this one was replaced 4 days ago Thornton catheter care 6. GI DVT prophylaxis 7. a.m. labs Time with Patient: Greater than 30
--- NOTE | 2019-11-16 11:50 | ECHOF ---
Referral Reason:recurrent pleural effusion MEASUREMENTS -------- HEIGHT: 180.3 cm WEIGHT: 86.6 kg BP: 110/61 IVSd: 1.2 cm (0.6 - 1.1) LVIDd: 2.4 cm (3.9 - 5.3) LVPWd: 1.4 cm (0.6 - 1.1) IVSs: 1.9 cm LVIDs: 1.4 cm LVPWs: 1.8 cm Ao Diam: 3.2 cm (2.0 - 3.7) AV Cusp: 1.2 cm (1.5 - 2.6) LA Diam: 3.3 cm (2.7 - 3.8) MV EXCURSION: 20.477 mm (> 18.000) MV EF SLOPE: 37 mm/s (70 - 150) EPSS: 1.7 cm MV E Marcio: 0.70 m/s MV DecT: 296 ms MV A Marcio: 0.81 m/s MV E/A Ratio: 0.87 RAP: 5.00 mmHg RVSP: 16.30 mmHg FINDINGS -------- This was a technically difficult study with suboptimal views. The left ventricular size is normal. There is mild concentric left ventricular hypertrophy. Overa ll left ventricular systolic function is normal with, an EF between 55 - 60 %. The diastolic fillin g pattern is normal for the age of the patient 15.90. The right ventricle is normal in size. The left atrial size is normal. The right atrial size is normal. Lumason used Aortic valve is trileaflet and is mildly thickened. The mitral valve is normal. The mitral valve leaflets are mildly thickened. Mild mitral annular c alcification present. There is trace mitral regurgitation. The tricuspid valve appears structurally normal. Mild tricuspid regurgitation present. Right vent ricular systolic pressure is normal at < 35 mmHg. There is no pulmonic regurgitation present. The aortic root size is normal. There is no pericardial effusion. CONCLUSIONS -------- 1. The left ventricular size is normal. 2. There is mild concentric left ventricular hypertrophy. 3. Overall left ventricular systolic function is normal with, an EF between 55 - 60 %. 4. The diastolic filling pattern is normal for the age of the patient 15.90 5. Aortic valve is trileaflet and is mildly thickened. 6. The mitral valve leaflets are mildly thickened. 7. Mild mitral annular calcification present. 8. There is trace mitral regurgitation. 9. Mild tricuspid regurgitation present. [employer]: Juliana Israel RDCS
[2019-11-16 12:10] LABS: Glucose,Whole Blood 217 mg/dL (75-99)
--- NOTE | 2019-11-16 14:43 | CONS ---
CONSULTATION PULMONARY/CRITICAL CARE CONSULTATION: November 16, 2019 HISTORY OF PRESENT ILLNESS: This is an 84-year-old male, well known to us. His primary care physician is Dr. Sage Parks. The patient presents to the emergency department on November 14 at 15:23 complaining of shortness of breath and possible urinary tract infection. He is an 84- year-old male with complaints of increasing shortness of breath. The patient has a history of chronic left-sided pleural effusion with previous multiple thoracentesis in the past. Most of the time the thoracentesis is performed by Interventional Radiology. I did a thoracentesis on him on one episode, but because of the depth of the fluid, subsequent to that, it has been done by Interventional Radiology. He also suffers from previous urinary tract infections as well as renal insufficiency, diabetes, DVT, hyperlipidemia, chronic liver disease, pulmonary embolism, and coronary artery disease, among other things. He is also status post bypass grafting. Today, the patient looks reasonably well. He is sitting up in bed. He does complain of shortness of breath. He has also been very weak. He really denies any fever or chills. He has a bit of a cough. Not producing any phlegm. No chest pain or chest discomfort. Looking back, his chest x-ray in my opinion does not look much different than prior chest x-rays, even in March of this year and January of last year. HOME MEDICATIONS: Currently home medications include eye drops, metformin, Lopressor, Pravachol, Ecotrin, fish oil, Lasix, hyaluronic acid, Aldactone, Flomax and warfarin. ALLERGIES: PENICILLIN, CODEINE AND TAPE. MEDICAL HISTORY: As mentioned above includes diabetes mellitus, DVT, hyperlipidemia, chronic liver disease, DJD, BPH, pulmonary embolism, chronic renal failure, CAD, shingles, and liver cirrhosis. SURGICAL HISTORY: Includes bypass grafting, corneal transplant and multiple previous thoracentesis. SOCIAL HISTORY: Negative for tobacco use. Denies any alcohol use or illicit drug use. FAMILY HISTORY: Positive for mother with no health history. A brother with bone cancer and a father with skin and bone cancer. REVIEW OF SYSTEMS: CONSTITUTIONAL: Weakness. NEUROLOGIC negative. HEENT negative. CARDIOVASCULAR negative. PULMONARY: Shortness of breath. GI negative. : Bladder infection. RHEUMATOLOGIC negative. IMMUNOLOGIC negative. ENDOCRINOLOGIC negative. DERMATOLOGIC negative. PHYSICAL EXAMINATION: VITAL SIGNS: Current vital signs are reviewed. Temperature is 97.4, heart rate 55, respiratory rate 18, blood pressure 97/50 mean 65, room air saturation 99%. GENERAL: He is in no acute distress. HEENT: Examination is grossly unremarkable. NECK: Supple. Full range of motion. No adenopathy. Neck veins are flat. CARDIOVASCULAR: Examination reveals regular rhythm and rate. Heart rate about mid 60. S1, S2 normal. No distinct murmur. Heart sounds are distant. LUNGS: Reveal clear breath sounds on the right. There is diminished breath sounds on the left. I do not really hear much in the way of adventitious lung sounds. No crackles. ABDOMEN: Soft. Bowel sounds are heard. EXTREMITIES are intact. No edema. SKIN: Without rash. NEUROLOGIC: Examination is nonfocal. LABS: Reviewed. White count 5.8, hemoglobin 12.4, hematocrit 38.1, platelet count 68,000. Sodium 133, potassium 5.1, chloride 106, CO2 is 20, anion gap is 7. BUN and creatinine were 93 and 3.64 compared to 107 and 4.18 yesterday. Calcium is 8.3, alkaline phosphatase 127, albumin 2.5. Urine is yellow and turbid. PH is 5.5, specific gravity 1.018, 2+ protein, moderate blood. Leukocyte esterase was large positive, 67 RBCs, greater than 182 WBCs, many WBC clumps and many urine bacteria. TSH was normal. N-terminal proBNP 1330. Troponin was essentially negative. Microbiology is currently pending. Chest x-ray shows a left-sided effusion which is partially loculated. Going back looking at prior x-rays, not much change. Current medications are reviewed. He is currently on Rocephin, eye drops, insulin, metoprolol, Narcan, Protonix, pravastatin, and Flomax. ASSESSMENT: 1. Persistent/recurrent left-sided pleural effusion, partially loculated, status post multiple previous thoracentesis. Most of the thoracentesis performed by Interventional Radiology. 2. History of chronic renal failure/chronic kidney disease. 3. History of deep venous thrombosis. 4. History of pulmonary embolism. 5. History of diabetes mellitus. 6. Hyperlipidemia. 7. Chronic liver disease/cirrhosis. 8. Degenerative joint disease. 9. Benign prostatic hypertrophy. 10.Coronary artery disease with previous bypass grafting. PLAN: Currently, the patient is doing relatively well. We have held his Coumadin. We will ask Interventional Radiology to consider thoracentesis. No additional recommendations are made. Clinically, the patient looks pretty stable. He is on Rocephin for what appears to be a urinary tract infection. He has had multiple urinary tract infections in the past. We will continue to follow. Prognosis is guarded. MMODL / IJN: [id number] /
--- NOTE | 2019-11-16 14:57 | CONS ---
CONSULTATION REASON FOR CONSULT: Renal failure. HISTORY OF PRESENT ILLNESS: Patient is an 84-year-old male who has a history of CKD NKF stage III with previous creatinine about 1.2-1.3 mg/dL at baseline. He was admitted to the hospital with complaints of weakness, not feeling well. The patient's blood pressure was low with systolic in the 80s. He was found to have a urinary tract infection. He is currently maintained on IV antibiotics. The patient did get fluid boluses in the ER as well. He denied use of any nonsteroidal anti-inflammatory agents prior to admission. Serum creatinine was 4.6 on initial admission, now it is down to 3.6. The patient has had good urine output. He has an indwelling Thornton catheter. I am not sure if he had an element of urine retention as it appears that he had 1.2 L of urine overnight. I am not sure if this was obtained on initial catheter placement. Blood pressure is currently improved with systolic around 110-97 mmHg. PAST MEDICAL HISTORY: CKD stage 3 baseline creatinine 1.3-1.4 mg/dL. Past medical history also significant for type 2 diabetes, history of DVT, osteoarthritis, hyperlipidemia, history of PE, BPH, coronary artery disease. PAST SURGICAL HISTORY: Coronary artery bypass surgery, corneal transplant, thoracentesis. SOCIAL HISTORY: Negative for smoking, drug abuse or alcohol abuse. MEDICATIONS: Medications at home prior to admission included Glucophage, Lopressor, Pravachol, Lasix, Spironolactone, Flomax, Zyloprim Coumadin. ALLERGIES: Include PENICILLIN, CODEINE, AND TAPE, CODEINE, AND TAPE CAUSE RASH AND HIVES AND PENICILLIN CAUSES RASH AND HIVES WELL AND THERE IS SOME HALLUCINATION REPORTED WITH CODEINE. REVIEW OF SYSTEMS: As per HPI. Other systems negative. EXAMINATION: Patient is comfortable, awake, not in any acute distress. Blood pressure was 97/50, heart rate 55 per minute, he is afebrile. Examination of the heart S1, S2. Examination of the lungs, bilateral breath sounds are heard. Decreased breath sounds at bases. Abdomen is soft, nontender. Examination of lower extremities shows no significant edema. 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 LAB: Show sodium 133, potassium 5.1, chloride 106, CO2 is 20, BUN 93, creatinine 3.64, hemoglobin 12.4 g/dL. ASSESSMENT: 1. Acute kidney injury, mostly associated with hypotension, hypoperfusion currently improved. 2. Urinary tract infection. Urine culture is pending. Patient is maintained on empiric antibiotics. He does have an indwelling Thornton catheter for about a month now. 3. History of urine retention with indwelling Thornton catheter for about a month. 4. Left-sided pleural effusion which is recurrent, to be followed by Pulmonology. 5. Chronic kidney disease stage 3 baseline creatinine 1.3-1.4 secondary to nephrosclerosis and diabetic nephropathy. Previous UA has shown trace to negative protein. 6. Metabolic acidosis associated with renal failure, status post bicarb drip. 7. Hyperkalemia on initial admission associated with acute kidney injury, metabolic acidosis, now improved. PLAN: Continue with indwelling Thornton catheter. I will add gentle IV hydration. Encourage increased oral intake. Continue with antibiotics. Avoid any other nephrotoxic agents and repeat labs in a.m. Thank you for this consultation. We will continue to follow the patient with you during his hospitalization. MMODL / IJN: [id number] /
[2019-11-16] MEDS: SODIUM CHLORIDE 0.9% 1,000 ML IV SCH (16:12)
[2019-11-16 16:39] LABS: Glucose,Whole Blood 252 mg/dL (75-99)
[2019-11-16 20:49] LABS: Glucose,Whole Blood 214 mg/dL (75-99)
[2019-11-16] MEDS: TAMSULOSIN 0.4 MG CAP.ER.24H PO SCH (20:55)
[2019-11-16] MEDS: LATANOPROST 0.005% OPHTH DROPS 2.5 ML BTL BOTH EYES SCH (20:58)
[2019-11-17 06:18] LABS: Glucose,Whole Blood 222 mg/dL (75-99)
[2019-11-17 06:43] LABS: Basophils % (A) 0 %; Eosinophils # (A) 0.1 k/uL (0-0.7); Eosinophils % (A) 2 %; HCT 35.7 % (39.0-53.0); HGB 11.6 gm/dL (13.0-17.5); Lymphocytes # (A) 0.9 k/uL (1.0-4.8); Lymphocytes % (A) 18 %; MCH 33.2 pg (25.0-35.0); MCHC 32.5 g/dL (31.0-37.0); MCV 102.1 fL (80.0-100.0); Macrocytosis Slight; Mean Platelet Volume 9.3; Monocytes # (A) 0.4 k/uL (0-1.0); Monocytes % (A) 7 %; Neutrophils # (A) 3.6 k/uL (1.3-7.7); Neutrophils % (A) 71 %; RDW 15.3 % (11.5-15.5); WBC 5.1 k/uL (3.8-10.6)
[2019-11-17 06:51] LABS: Platelet Count 48 k/uL (150-450)
[2019-11-17 06:53] LABS: Glucose,Whole Blood 224 mg/dL (75-99)
[2019-11-17] MEDS: INSULIN ASPART (NovoLOG) 100 UNIT/ML VIAL SQ SCH ×4 (06:54→21:07)
[2019-11-17 07:10] LABS: Albumin 2.3 g/dL (3.5-5.0); Calcium 8.1 mg/dL (8.4-10.2); Magnesium 2.1 mg/dL (1.6-2.3); Phosphorus 3.3 mg/dL (2.5-4.5); Potassium 5.5 mmol/L (3.5-5.1); Total Bilirubin 0.5 mg/dL (0.2-1.3); Total Protein 4.9 g/dL (6.3-8.2)
[2019-11-17] MEDS ORDERED: SODIUM POLYSTYRENE SULFONATE 15 GM/60 ML BOTTLE PO STA (08:40)
[2019-11-17] MEDS: METOPROLOL TARTRATE 25 MG TAB PO SCH ×2 (09:29→20:55)
[2019-11-17] MEDS: PANTOPRAZOLE 40 MG TABLET PO SCH (09:29)
[2019-11-17] MEDS: DORZOLAMIDE HCL 2% DROPS 10 ML BTL LEFT EYE SCH ×3 (09:29→20:56)
[2019-11-17] MEDS: PRAVASTATIN SODIUM 40 MG TAB PO SCH (09:29)
--- NOTE | 2019-11-17 10:48 | P.PN ---
Subjective Progress Note Date: 11/17/19 Principal diagnosis: Shortness of breath. Patient seen and examined at bedside. Patient states he is doing well. Patient denies chest pain at this time. Patient further denies nausea, vomiting, fevers, or chills. Thoracentesis has yet to be done. Patient was admitted due to 2 week history of worsening shortness of breath patient reports that his problems with breathing started since 2018 he does not give me any specific diagnosis he is not on any supplemental oxygen since 2018 he had fluids reaccumulating around his lungs requiring thoracentesis about 7 times since then. He reports at baseline he is able to walk around his home with no limitations however over the past 2 weeks he's been getting worsening shortness of breath even while sitting down doing nothing he's been sleeping in his chair unable to get up or do anything he noticed new onset orthopnea and pa roxysmal nocturnal dyspnea. 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 Abdominal ultrasound completed on 11/16/19 demonstrated no sizable fluid collection. Objective - Vital Signs Vital signs: Vital Signs Temp 98.5 F 11/17/19 09:34 Pulse 64 11/17/19 09:34 Resp 18 11/17/19 09:34 BP 99/59 11/17/19 09:34 Pulse Ox 98 11/17/19 09:34 Intake & Output 11/16/19 11/17/19 11/17/19 18:59 06:59 18:59 Intake Total 318 240 Output Total 600 750 Balance -282 -750 240 Weight 85.5 kg Intake: Oral 318 240 Output: Urine 600 750 Other: Voiding Method Indwelling Catheter Indwelling Catheter # Voids 1 # Bowel Movements 2 - Exam General: [non toxic], [no distress], [appears at stated age] Derm: [warm], [dry] Head: [atraumatic], [normocephalic], [symmetric] Eyes: [EOMI], [no lid lag], [anicteric sclera] Mouth: [no lip lesion], [mucus membranes moist] Cardiovascular: [S1S2 reg], [no murmur], [positive posterior tibial pulse bilateral], Lungs: [Diminished breath sounds in left lower lobe], [no rhonchi, no rales] , [no accessory muscle use] Abdominal: [soft], [ nontender to palpation], [no guarding], [no appreciable organomegaly] Ext: [no gross muscle atrophy], [no edema], [no contractures] Neuro: [ CN II-XI grossly intact], [no focal neuro deficits] Psych: [Alert], [oriented], [appropriate affect.] - Labs CBC & Chem 7: 11/17/19 06:12 11/17/19 06:12 Labs: Abnormal Lab Results - Last 24 Hours (Table) 11/16/19 11/16/19 11/16/19 Range/Units 12:08 16:37 20:48 RBC (4.30-5.90) m/uL Hgb (13.0-17.5) gm/dL Hct (39.0-53.0) % MCV (80.0-100.0) fL Plt Count (150-450) k/uL Lymphocytes # (1.0-4.8) k/uL Sodium (137-145) mmol/L Potassium (3.5-5.1) mmol/L Chloride (98-107) mmol/L Carbon Dioxide (22-30) mmol/L BUN (9-20) mg/dL Creatinine (0.66-1.25) mg/dL Glucose (74-99) mg/dL POC Glucose (mg/dL) 217 H 252 H 214 H (75-99) mg/dL Calcium (8.4-10.2) mg/dL Alkaline Phosphatase (38-126) U/L Total Protein (6.3-8.2) g/dL Albumin (3.5-5.0) g/dL 11/17/19 11/17/19 11/17/19 Range/Units 06:12 06:12 06:17 RBC 3.50 L (4.30-5.90) m/uL Hgb 11.6 L (13.0-17.5) gm/dL Hct 35.7 L (39.0-53.0) % MCV 102.1 H (80.0-100.0) fL Plt Count 48 L (150-450) k/uL Lymphocytes # 0.9 L (1.0-4.8) k/uL Sodium 134 L (137-145) mmol/L Potassium 5.5 H (3.5-5.1) mmol/L Chloride 110 H (98-107) mmol/L Carbon Dioxide 17 L (22-30) mmol/L BUN 77 H (9-20) mg/dL Creatinine 2.89 H (0.66-1.25) mg/dL Glucose 227 H (74-99) mg/dL POC Glucose (mg/dL) 222 H (75-99) mg/dL Calcium 8.1 L (8.4-10.2) mg/dL Alkaline Phosphatase 148 H (38-126) U/L Total Protein 4.9 L (6.3-8.2) g/dL Albumin 2.3 L (3.5-5.0) g/dL 11/17/19 Range/Units 06:51 RBC (4.30-5.90) m/uL Hgb (13.0-17.5) gm/dL Hct (39.0-53.0) % MCV (80.0-100.0) fL Plt Count (150-450) k/uL Lymphocytes # (1.0-4.8) k/uL Sodium (137-145) mmol/L Potassium (3.5-5.1) mmol/L Chloride (98-107) mmol/L Carbon Dioxide (22-30) mmol/L BUN (9-20) mg/dL Creatinine (0.66-1.25) mg/dL Glucose (74-99) mg/dL POC Glucose (mg/dL) 224 H (75-99) mg/dL Calcium (8.4-10.2) mg/dL Alkaline Phosphatase (38-126) U/L Total Protein (6.3-8.2) g/dL Albumin (3.5-5.0) g/dL Microbiology - Last 24 Hours (Table) 11/15/19 16:31 Blood Culture - Preliminary Blood No Growth after 24 hours Assessment and Plan Assessment: 1. Recurrent left-sided pleural effusion with dyspnea Pulmonary recommendations appreciated thoracentesis with fluid analysis pending echocardiogram reveals an ejection fraction of 55-60% Supplemental oxygen as needed Elevate head of the bed 2. Acute renal failure, nonoliguric Hold diuretics Avoid nephrotoxic meds IV fluid hydration Nephrology recommendations appreciated Creatinine has improved from or 4.18 to 3.64 to 2.89 today Thornton catheter care 3. Hyperkalemia likely secondary to elevated blood sugars and DOMINICK Add Levemir 4 units subq every morning for better glucose control Continue sliding scale Kayexalate also provided Follow-up potassium level closely 4. Evaluate bedsore when nursing staff available take pictures Wound care daily 5. Acute urinary tract infection IV Rocephin Rocephin Patient refuses to replace Thornton catheter at this time patient had Thornton catheter for one month he claims that this one was replaced 4 days ago Thornton catheter care 6. GI DVT prophylaxis 7. a.m. labs Time with Patient: Greater than 30
[2019-11-17 11:44] LABS: Glucose,Whole Blood 280 mg/dL (75-99)
--- NOTE | 2019-11-17 11:55 | P.PN ---
Subjective Progress Note Date: 11/17/19 Principal diagnosis: This is an 84-year-old male seen in consultation because of acute kidney injury secondary to low blood pressure, he was admitted with a creatinine up from 1 on 06/06/2018, 1.37 on 04/11/2019, and his creatinine was 4.64. With hydration has come down to 2.89 with fair, or urine output Patient denies any complaints currently He has no nausea vomiting dizziness chest pain shortness of breath. He is chronically fatigued Today's creatinine is 2.8 at Slightly up at 5.5 and Blood Sugar Is Running in the 220 Range. Additionally He Has Mild Degree of Non-Gap Acidosis with Bicarb of 17 and a Gap of 7 Blood Pressure Runs in the 90s to 110s Is on Metoprolol for His Coronary Artery Disease Objective - Vital Signs Vital signs: Vital Signs Temp 98.5 F 11/17/19 09:34 Pulse 64 11/17/19 09:34 Resp 18 11/17/19 09:34 BP 99/59 11/17/19 09:34 Pulse Ox 98 11/17/19 09:34 Intake & Output 11/16/19 11/17/19 11/17/19 18:59 06:59 18:59 Intake Total 318 240 Output Total 600 750 Balance -282 -750 240 Weight 85.5 kg Intake: Oral 318 240 Output: Urine 600 750 Other: Voiding Method Indwelling Catheter Indwelling Catheter # Voids 1 # Bowel Movements 2 On examination is awake alert oriented comfortable HEENT exam no JVP neck is supple no facial asymmetry Heart sounds unremarkable for any murmur rub gallop Abdomen soft nontender Lungs are clear to auscultation good air entry bilaterally Extremity exam was no edema Neurologically awake alert oriented - Labs CBC & Chem 7: 11/17/19 06:12 11/17/19 06:12 Labs: Abnormal Lab Results - Last 24 Hours (Table) 11/16/19 11/16/19 11/16/19 Range/Units 12:08 16:37 20:48 RBC (4.30-5.90) m/uL Hgb (13.0-17.5) gm/dL Hct (39.0-53.0) % MCV (80.0-100.0) fL Plt Count (150-450) k/uL Lymphocytes # (1.0-4.8) k/uL Sodium (137-145) mmol/L Potassium (3.5-5.1) mmol/L Chloride (98-107) mmol/L Carbon Dioxide (22-30) mmol/L BUN (9-20) mg/dL Creatinine (0.66-1.25) mg/dL Glucose (74-99) mg/dL POC Glucose (mg/dL) 217 H 252 H 214 H (75-99) mg/dL Calcium (8.4-10.2) mg/dL Alkaline Phosphatase (38-126) U/L Total Protein (6.3-8.2) g/dL Albumin (3.5-5.0) g/dL 11/17/19 11/17/19 11/17/19 Range/Units 06:12 06:12 06:17 RBC 3.50 L (4.30-5.90) m/uL Hgb 11.6 L (13.0-17.5) gm/dL Hct 35.7 L (39.0-53.0) % MCV 102.1 H (80.0-100.0) fL Plt Count 48 L (150-450) k/uL Lymphocytes # 0.9 L (1.0-4.8) k/uL Sodium 134 L (137-145) mmol/L Potassium 5.5 H (3.5-5.1) mmol/L Chloride 110 H (98-107) mmol/L Carbon Dioxide 17 L (22-30) mmol/L BUN 77 H (9-20) mg/dL Creatinine 2.89 H (0.66-1.25) mg/dL Glucose 227 H (74-99) mg/dL POC Glucose (mg/dL) 222 H (75-99) mg/dL Calcium 8.1 L (8.4-10.2) mg/dL Alkaline Phosphatase 148 H (38-126) U/L Total Protein 4.9 L (6.3-8.2) g/dL Albumin 2.3 L (3.5-5.0) g/dL 11/17/19 11/17/19 Range/Units 06:51 11:42 RBC (4.30-5.90) m/uL Hgb (13.0-17.5) gm/dL Hct (39.0-53.0) % MCV (80.0-100.0) fL Plt Count (150-450) k/uL Lymphocytes # (1.0-4.8) k/uL Sodium (137-145) mmol/L Potassium (3.5-5.1) mmol/L Chloride (98-107) mmol/L Carbon Dioxide (22-30) mmol/L BUN (9-20) mg/dL Creatinine (0.66-1.25) mg/dL Glucose (74-99) mg/dL POC Glucose (mg/dL) 224 H 280 H (75-99) mg/dL Calcium (8.4-10.2) mg/dL Alkaline Phosphatase (38-126) U/L Total Protein (6.3-8.2) g/dL Albumin (3.5-5.0) g/dL Microbiology - Last 24 Hours (Table) 11/15/19 16:31 Blood Culture - Preliminary Blood No Growth after 24 hours Assessment and Plan Assessment: Impression 1. Acute kidney injury secondary to low blood pressure, possibly from medications including Lasix, spironolactone and metoprolol. Creatinine is improving 2. Chronic kidney disease creatinine 1.3, CK D stage III and nephrosclerosis, possible diabetic nephropathy with 2+ protein, serum protein to physical is unremarkable 3. Coronary artery disease 4. Diabetes. Her sugars in the 200 range 5. Slight hyperkalemia secondary to transcellular shift expected to improve Recommendation 1. Patient could be discharged, deferred to the primary physician 2. We will recheck labs tomorrow if he is here but he can be discharged this can be followed up as an outpatient alliances not on any potassium sparing diuretics or KENNETH inhibitor's or ARB
[2019-11-17] MEDS: SODIUM CHLORIDE 0.9% 1,000 ML IV SCH (12:33)
[2019-11-17] MEDS: SODIUM BICARBONATE TAB 650 MG TAB PO SCH ×3 (12:34→20:55)
--- NOTE | 2019-11-17 13:30 | P.PN ---
Subjective Progress Note Date: 11/17/19 Principal diagnosis: Shortness of breath, chronic loculated pleural effusion The patient is seen today 11/17/2019 in follow-up on the selective care unit. He is currently resting comfortably. No worsening shortness of breath, cough or congestion. Maintaining good O2 saturations up to 99% on room air. He's afebrile. Hemodynamically stable. Blood culture reveals no growth to date. Urine culture pending. White count 5.1. Hemoglobin 11.6. Sodium 134. Potassium 5.5. Bicarb 17. Creatinine 2.89. Continued on ceftriaxone. Objective - Vital Signs Vital signs: Vital Signs Temp 98.3 F 11/17/19 12:00 Pulse 64 11/17/19 12:00 Resp 18 11/17/19 12:00 BP 104/60 11/17/19 12:00 Pulse Ox 99 11/17/19 12:00 Intake & Output 11/16/19 11/17/19 11/17/19 18:59 06:59 18:59 Intake Total 318 480 Output Total 600 750 Balance -282 -750 480 Weight 85.5 kg Intake: Oral 318 480 Output: Urine 600 750 Other: Voiding Method Indwelling Catheter Indwelling Catheter # Voids 1 # Bowel Movements 2 - Exam GENERAL EXAM: Alert, very pleasant 84-year-old gentleman, on room air, comfortable in no apparent distress. HEAD: Normocephalic. EYES: Normal reaction of pupils, equal size. NOSE: Clear with pink turbinates. THROAT: No erythema or exudates. NECK: No masses, no JVD. CHEST: No chest wall deformity. LUNGS: Equal air entry with crackles in the left lung base, diminished CVS: S1 and S2 normal with no audible murmur, regular rhythm. ABDOMEN: No hepatosplenomegaly, normal bowel sounds, no guarding or rigidity. SPINE: No scoliosis or deformity SKIN: No rashes CENTRAL NERVOUS SYSTEM: No focal deficits, tone is normal in all 4 extremities. EXTREMITIES: There is no peripheral edema. No clubbing, no cyanosis. Peripheral pulses are intact. - Labs CBC & Chem 7: 11/17/19 06:12 11/17/19 06:12 Labs: Abnormal Lab Results - Last 24 Hours (Table) 11/16/19 11/16/19 11/17/19 Range/Units 16:37 20:48 06:12 RBC 3.50 L (4.30-5.90) m/uL Hgb 11.6 L (13.0-17.5) gm/dL Hct 35.7 L (39.0-53.0) % MCV 102.1 H (80.0-100.0) fL Plt Count 48 L (150-450) k/uL Lymphocytes # 0.9 L (1.0-4.8) k/uL Sodium (137-145) mmol/L Potassium (3.5-5.1) mmol/L Chloride (98-107) mmol/L Carbon Dioxide (22-30) mmol/L BUN (9-20) mg/dL Creatinine (0.66-1.25) mg/dL Glucose (74-99) mg/dL POC Glucose (mg/dL) 252 H 214 H (75-99) mg/dL Calcium (8.4-10.2) mg/dL Alkaline Phosphatase (38-126) U/L Total Protein (6.3-8.2) g/dL Albumin (3.5-5.0) g/dL 11/17/19 11/17/19 11/17/19 Range/Units 06:12 06:17 06:51 RBC (4.30-5.90) m/uL Hgb (13.0-17.5) gm/dL Hct (39.0-53.0) % MCV (80.0-100.0) fL Plt Count (150-450) k/uL Lymphocytes # (1.0-4.8) k/uL Sodium 134 L (137-145) mmol/L Potassium 5.5 H (3.5-5.1) mmol/L Chloride 110 H (98-107) mmol/L Carbon Dioxide 17 L (22-30) mmol/L BUN 77 H (9-20) mg/dL Creatinine 2.89 H (0.66-1.25) mg/dL Glucose 227 H (74-99) mg/dL POC Glucose (mg/dL) 222 H 224 H (75-99) mg/dL Calcium 8.1 L (8.4-10.2) mg/dL Alkaline Phosphatase 148 H (38-126) U/L Total Protein 4.9 L (6.3-8.2) g/dL Albumin 2.3 L (3.5-5.0) g/dL 11/17/19 Range/Units 11:42 RBC (4.30-5.90) m/uL Hgb (13.0-17.5) gm/dL Hct (39.0-53.0) % MCV (80.0-100.0) fL Plt Count (150-450) k/uL Lymphocytes # (1.0-4.8) k/uL Sodium (137-145) mmol/L Potassium (3.5-5.1) mmol/L Chloride (98-107) mmol/L Carbon Dioxide (22-30) mmol/L BUN (9-20) mg/dL Creatinine (0.66-1.25) mg/dL Glucose (74-99) mg/dL POC Glucose (mg/dL) 280 H (75-99) mg/dL Calcium (8.4-10.2) mg/dL Alkaline Phosphatase (38-126) U/L Total Protein (6.3-8.2) g/dL Albumin (3.5-5.0) g/dL Microbiology - Last 24 Hours (Table) 11/15/19 16:31 Blood Culture - Preliminary Blood No Growth after 24 hours Assessment and Plan Assessment: Dyspnea secondary to recurrent left pleural effusion, somewhat chronic in nature, somewhat loculated. Previous multiple thoracentesis. History of chronic renal failure, chronic kidney disease History of DVT History of PE Diabetes mellitus Lipidemia Chronic liver disease/cirrhosis Degenerative joint disease Benign prostatic hypertrophy Coronary artery disease with previous bypass grafting Plan: The patient was seen and evaluated by Dr. Aviles Currently stable from the pulmonary standpoint, on room air Plan is for possible ultrasound-guided thoracentesis by interventional radiology on Tuesday We'll continue to follow I, the cosigning physician, performed a history & physical examination of the patient. Lungs sounds with crackles in the left base, diminished Maintaining good O2 saturations in the 90s on room air. I discussed the assessment and plan of care with my nurse practitioner, Yadira De Los Santos. I attest to the above note as dictated by her.
[2019-11-17 16:36] LABS: Glucose,Whole Blood 318 mg/dL (75-99)
[2019-11-17 19:11] LABS: Hemoglobin A1C 8.5 % (4.0-6.0)
[2019-11-17] MEDS: LATANOPROST 0.005% OPHTH DROPS 2.5 ML BTL BOTH EYES SCH (20:55)
[2019-11-17] MEDS: TAMSULOSIN 0.4 MG CAP.ER.24H PO SCH (20:55)
[2019-11-17 20:59] LABS: Glucose,Whole Blood 232 mg/dL (75-99)
[2019-11-18] MEDS: SODIUM CHLORIDE 0.9% 1,000 ML IV SCH ×2 (04:33→20:39)
[2019-11-18 06:18] LABS: Basophils % (A) 1 %; Eosinophils # (A) 0.2 k/uL (0-0.7); Eosinophils % (A) 3 %; HCT 37.5 % (39.0-53.0); HGB 12.2 gm/dL (13.0-17.5); Lymphocytes # (A) 1.7 k/uL (1.0-4.8); Lymphocytes % (A) 28 %; MCH 33.4 pg (25.0-35.0); MCHC 32.4 g/dL (31.0-37.0); MCV 102.9 fL (80.0-100.0); Macrocytosis Moderate; Mean Platelet Volume 9.6; Monocytes # (A) 0.4 k/uL (0-1.0); Monocytes % (A) 7 %; Neutrophils # (A) 3.5 k/uL (1.3-7.7); Neutrophils % (A) 60 %; RBC 3.65 m/uL (4.30-5.90); RDW 15.3 % (11.5-15.5); WBC 5.9 k/uL (3.8-10.6)
[2019-11-18 06:19] LABS: Glucose,Whole Blood 213 mg/dL (75-99)
[2019-11-18 06:21] LABS: Platelet Count 58 k/uL (150-450)
[2019-11-18 06:35] LABS: Albumin 2.5 g/dL (3.5-5.0); Calcium 8.4 mg/dL (8.4-10.2); Potassium 5.3 mmol/L (3.5-5.1); Total Bilirubin 0.7 mg/dL (0.2-1.3); Total Protein 5.2 g/dL (6.3-8.2)
[2019-11-18] MEDS: INSULIN ASPART (NovoLOG) 100 UNIT/ML VIAL SQ SCH ×4 (06:37→20:33)
[2019-11-18] MEDS ORDERED: INSULIN DETEMIR (LEVEMIR) 100 UNIT/ML SYR SQ SCH (07:00)
[2019-11-18] MEDS ORDERED: INSULIN DETEMIR (LEVEMIR) 100 UNIT/ML SYR SQ ONE (09:00)
[2019-11-18] MEDS: SODIUM BICARBONATE TAB 650 MG TAB PO SCH ×4 (09:03→20:33)
[2019-11-18] MEDS: PRAVASTATIN SODIUM 40 MG TAB PO SCH (09:03)
[2019-11-18] MEDS: DORZOLAMIDE HCL 2% DROPS 10 ML BTL LEFT EYE SCH ×3 (09:03→20:35)
[2019-11-18] MEDS: METOPROLOL TARTRATE 25 MG TAB PO SCH (09:03)
[2019-11-18] MEDS: PANTOPRAZOLE 40 MG TABLET PO SCH (09:03)
--- NOTE | 2019-11-18 10:03 | P.PN ---
Subjective Progress Note Date: 11/18/19 No new complaints today. Feel short of breath with minimal exertion. Plan for IR thoracentesis tomorrow. Objective - Vital Signs Vital signs: Vital Signs Temp 97.7 F 11/18/19 04:30 Pulse 65 11/18/19 04:30 Resp 16 11/18/19 04:30 BP 93/49 11/18/19 04:30 Pulse Ox 97 11/18/19 04:30 Intake & Output 11/17/19 11/18/19 11/18/19 18:59 06:59 18:59 Intake Total 720 240 Output Total 450 900 Balance 270 -900 240 Weight 90 kg Intake: Oral 720 240 Output: Urine 450 900 Uretheral (Davis) 600 Other: Voiding Method Indwelling Catheter # Voids 1 1 # Bowel Movements 1 - Exam Gen: awake, alert HEENT: normocephalic, atraumatic, good hearing acuity, moist mucous membranes Resp: no accessory muscle use, no wheezes, crackles, rhonchi CVS: good distal perfusion x 4, RRR, no murmurs, clicks, gallops GI: soft, NTTP, ND : no SPT, no CVAT, davis catheter is present MSK: no pitting edema, no clubbing Neuro: non-focal, no sensory deficits, appropriate tone Psych: cooperative, euthymic mood - Labs CBC & Chem 7: 11/18/19 05:55 11/18/19 05:55 Labs: Abnormal Lab Results - Last 24 Hours (Table) 11/17/19 11/17/19 11/17/19 Range/Units 06:12 11:42 16:24 RBC (4.30-5.90) m/uL Hgb (13.0-17.5) gm/dL Hct (39.0-53.0) % MCV (80.0-100.0) fL Plt Count (150-450) k/uL Sodium (137-145) mmol/L Potassium (3.5-5.1) mmol/L Chloride (98-107) mmol/L Carbon Dioxide (22-30) mmol/L BUN (9-20) mg/dL Creatinine (0.66-1.25) mg/dL Glucose (74-99) mg/dL POC Glucose (mg/dL) 280 H 318 H (75-99) mg/dL Hemoglobin A1c 8.5 H (4.0-6.0) % Alkaline Phosphatase (38-126) U/L Total Protein (6.3-8.2) g/dL Albumin (3.5-5.0) g/dL 11/17/19 11/18/19 11/18/19 Range/Units 20:57 05:55 05:55 RBC 3.65 L (4.30-5.90) m/uL Hgb 12.2 L (13.0-17.5) gm/dL Hct 37.5 L (39.0-53.0) % MCV 102.9 H (80.0-100.0) fL Plt Count 58 L (150-450) k/uL Sodium 135 L (137-145) mmol/L Potassium 5.3 H (3.5-5.1) mmol/L Chloride 111 H (98-107) mmol/L Carbon Dioxide 17 L (22-30) mmol/L BUN 69 H (9-20) mg/dL Creatinine 2.62 H (0.66-1.25) mg/dL Glucose 218 H (74-99) mg/dL POC Glucose (mg/dL) 232 H (75-99) mg/dL Hemoglobin A1c (4.0-6.0) % Alkaline Phosphatase 161 H (38-126) U/L Total Protein 5.2 L (6.3-8.2) g/dL Albumin 2.5 L (3.5-5.0) g/dL 11/18/19 Range/Units 06:18 RBC (4.30-5.90) m/uL Hgb (13.0-17.5) gm/dL Hct (39.0-53.0) % MCV (80.0-100.0) fL Plt Count (150-450) k/uL Sodium (137-145) mmol/L Potassium (3.5-5.1) mmol/L Chloride (98-107) mmol/L Carbon Dioxide (22-30) mmol/L BUN (9-20) mg/dL Creatinine (0.66-1.25) mg/dL Glucose (74-99) mg/dL POC Glucose (mg/dL) 213 H (75-99) mg/dL Hemoglobin A1c (4.0-6.0) % Alkaline Phosphatase (38-126) U/L Total Protein (6.3-8.2) g/dL Albumin (3.5-5.0) g/dL Microbiology - Last 24 Hours (Table) 11/15/19 16:31 Urine Culture - Final Urine,Voided 11/15/19 16:31 Blood Culture - Preliminary Blood No Growth after 48 hours Assessment and Plan Assessment: 1. Recurrent left-sided pleural effusion with dyspnea Pulmonary recommendations appreciated thoracentesis with fluid analysis pending echocardiogram reveals an ejection fraction of 55-60% Supplemental oxygen as needed Elevate head of the bed 2. Acute renal failure, nonoliguric Hold diuretics Avoid nephrotoxic meds IV fluid hydration Nephrology recommendations appreciated Creatinine has improved from or 4.18 to 3.64 to 2.89 today Davis catheter care 3. Hyperkalemia likely secondary to elevated blood sugars and DOMINICK Increased Levemir to 12 units subq every morning for better glucose control Continue sliding scale Kayexalate also provided Follow-up potassium level closely 4. Evaluate bedsore when nursing staff available take pictures Wound care daily 5. Acute urinary tract infection IV Rocephin Rocephin Patient refuses to replace Davis catheter at this time patient had Davis catheter for one month he claims that this one was replaced 4 days ago Davis catheter care 6. GI DVT prophylaxis 7. a.m. labs
--- NOTE | 2019-11-18 11:17 | P.PN ---
Subjective Progress Note Date: 11/18/19 Principal diagnosis: Shortness of breath, chronic loculated pleural effusion The patient is seen today 11/17/2019 in follow-up on the selective care unit. He is currently resting comfortably. No worsening shortness of breath, cough or congestion. Maintaining good O2 saturations up to 99% on room air. He's afebrile. Hemodynamically stable. Blood culture reveals no growth to date. Urine culture pending. White count 5.1. Hemoglobin 11.6. Sodium 134. Potassium 5.5. Bicarb 17. Creatinine 2.89. Continued on ceftriaxone. Patient seen today 11/18/2019 in follow-up on the selective care unit. He is currently sitting up in a chair at the bedside. Awake and alert in no acute distress. Maintaining good O2 saturations in the 90s on room air. He states he does get dyspneic with minimal exertion. No cough or congestion. No fever, chills or night sweats. Blood cultures reveal no growth. Urine culture reveals no growth. White count 5.9. Hemoglobin 12.2. Platelets 58,000. Sodium 135. Potassium 5.3. Bicarb 17. Creatinine 2.62. Objective - Vital Signs Vital signs: Vital Signs Temp 97.4 F L 11/18/19 08:55 Pulse 72 11/18/19 08:55 Resp 18 11/18/19 08:55 BP 112/67 11/18/19 08:55 Pulse Ox 99 11/18/19 08:55 Intake & Output 11/17/19 11/18/19 11/18/19 18:59 06:59 18:59 Intake Total 720 240 Output Total 450 900 Balance 270 -900 240 Weight 90 kg Intake: Oral 720 240 Output: Urine 450 900 Uretheral (Thornton) 600 Other: Voiding Method Indwelling Catheter Indwelling Catheter # Voids 1 1 # Bowel Movements 1 - Exam GENERAL EXAM: Alert, very pleasant 84-year-old gentleman, on room air, comfortable in no apparent distress. HEAD: Normocephalic. EYES: Normal reaction of pupils, equal size. NOSE: Clear with pink turbinates. THROAT: No erythema or exudates. NECK: No masses, no JVD. CHEST: No chest wall deformity. LUNGS: Equal air entry with crackles in the left lung base, diminished CVS: S1 and S2 normal with no audible murmur, regular rhythm. ABDOMEN: No hepatosplenomegaly, normal bowel sounds, no guarding or rigidity. SPINE: No scoliosis or deformity SKIN: No rashes CENTRAL NERVOUS SYSTEM: No focal deficits, tone is normal in all 4 extremities. EXTREMITIES: There is no peripheral edema. No clubbing, no cyanosis. Peripheral pulses are intact. - Labs CBC & Chem 7: 11/18/19 05:55 11/18/19 05:55 Labs: Abnormal Lab Results - Last 24 Hours (Table) 11/17/19 11/17/19 11/17/19 Range/Units 06:12 11:42 16:24 RBC (4.30-5.90) m/uL Hgb (13.0-17.5) gm/dL Hct (39.0-53.0) % MCV (80.0-100.0) fL Plt Count (150-450) k/uL Sodium (137-145) mmol/L Potassium (3.5-5.1) mmol/L Chloride (98-107) mmol/L Carbon Dioxide (22-30) mmol/L BUN (9-20) mg/dL Creatinine (0.66-1.25) mg/dL Glucose (74-99) mg/dL POC Glucose (mg/dL) 280 H 318 H (75-99) mg/dL Hemoglobin A1c 8.5 H (4.0-6.0) % Alkaline Phosphatase (38-126) U/L Total Protein (6.3-8.2) g/dL Albumin (3.5-5.0) g/dL 11/17/19 11/18/19 11/18/19 Range/Units 20:57 05:55 05:55 RBC 3.65 L (4.30-5.90) m/uL Hgb 12.2 L (13.0-17.5) gm/dL Hct 37.5 L (39.0-53.0) % MCV 102.9 H (80.0-100.0) fL Plt Count 58 L (150-450) k/uL Sodium 135 L (137-145) mmol/L Potassium 5.3 H (3.5-5.1) mmol/L Chloride 111 H (98-107) mmol/L Carbon Dioxide 17 L (22-30) mmol/L BUN 69 H (9-20) mg/dL Creatinine 2.62 H (0.66-1.25) mg/dL Glucose 218 H (74-99) mg/dL POC Glucose (mg/dL) 232 H (75-99) mg/dL Hemoglobin A1c (4.0-6.0) % Alkaline Phosphatase 161 H (38-126) U/L Total Protein 5.2 L (6.3-8.2) g/dL Albumin 2.5 L (3.5-5.0) g/dL 11/18/19 Range/Units 06:18 RBC (4.30-5.90) m/uL Hgb (13.0-17.5) gm/dL Hct (39.0-53.0) % MCV (80.0-100.0) fL Plt Count (150-450) k/uL Sodium (137-145) mmol/L Potassium (3.5-5.1) mmol/L Chloride (98-107) mmol/L Carbon Dioxide (22-30) mmol/L BUN (9-20) mg/dL Creatinine (0.66-1.25) mg/dL Glucose (74-99) mg/dL POC Glucose (mg/dL) 213 H (75-99) mg/dL Hemoglobin A1c (4.0-6.0) % Alkaline Phosphatase (38-126) U/L Total Protein (6.3-8.2) g/dL Albumin (3.5-5.0) g/dL Microbiology - Last 24 Hours (Table) 11/15/19 16:31 Urine Culture - Final Urine,Voided 11/15/19 16:31 Blood Culture - Preliminary Blood No Growth after 48 hours Assessment and Plan Assessment: Dyspnea secondary to recurrent left pleural effusion, somewhat chronic in nature, somewhat loculated. Previous multiple thoracentesis. History of chronic renal failure, chronic kidney disease History of DVT History of PE Diabetes mellitus Lipidemia Chronic liver disease/cirrhosis Degenerative joint disease Benign prostatic hypertrophy Coronary artery disease with previous bypass grafting Plan: The patient was seen and evaluated by Dr. Aviles Currently stable from the pulmonary standpoint, on room air Plan is for possible ultrasound-guided thoracentesis by interventional radiology on Tuesday We'll continue to follow I, the cosigning physician, performed a history & physical examination of the patient. Lungs sounds with crackles in the left base, diminished Maintaining good O2 saturations in the 90s on room air. I discussed the assessment and plan of care with my nurse practitioner, Yadira De Los Santos. I attest to the above note as dictated by her.
--- NOTE | 2019-11-18 11:45 | P.PN ---
Subjective Progress Note Date: 11/18/19 Principal diagnosis: This is an 84-year-old male seen in consultation because of acute kidney injury secondary to low blood pressure, likely from his medications including beta blo ckers, spironolactone and Lasix, Flomax. On admission creatinine was 4.64 and is slowly coming down to 2.6. His baseline creatinine is about 1.4 on 01/26/2019 and 1.37 dated 04/11/2019. His medications were reduced, diuretics withheld His CKD stage III GFR in the 40s deemed to be from nephrosclerosis Patient denies any complaints currently. He is feeling fine He has no nausea vomiting dizziness chest pain shortness of breath. He is chronically fatigued Objective - Vital Signs Vital signs: Vital Signs Temp 97.4 F L 11/18/19 08:55 Pulse 72 11/18/19 08:55 Resp 18 11/18/19 08:55 BP 112/67 11/18/19 08:55 Pulse Ox 99 11/18/19 08:55 Intake & Output 11/17/19 11/18/19 11/18/19 18:59 06:59 18:59 Intake Total 720 240 Output Total 450 900 Balance 270 -900 240 Weight 90 kg Intake: Oral 720 240 Output: Urine 450 900 Uretheral (Thornton) 600 Other: Voiding Method Indwelling Catheter Indwelling Catheter # Voids 1 1 # Bowel Movements 1 On exam he is awake alert oriented comfortable HEENT exam no JVP neck is supple no facial asymmetry Heart sounds unremarkable for any murmur rub gallop Abdomen soft nontender. Lungs are clear to auscultation with good air entry bilaterally Extremities exam reveals no edema Neurologically awake alert oriented comfortable - Labs CBC & Chem 7: 11/18/19 05:55 11/18/19 05:55 Labs: Abnormal Lab Results - Last 24 Hours (Table) 11/17/19 11/17/19 11/17/19 Range/Units 06:12 11:42 16:24 RBC (4.30-5.90) m/uL Hgb (13.0-17.5) gm/dL Hct (39.0-53.0) % MCV (80.0-100.0) fL Plt Count (150-450) k/uL Sodium (137-145) mmol/L Potassium (3.5-5.1) mmol/L Chloride (98-107) mmol/L Carbon Dioxide (22-30) mmol/L BUN (9-20) mg/dL Creatinine (0.66-1.25) mg/dL Glucose (74-99) mg/dL POC Glucose (mg/dL) 280 H 318 H (75-99) mg/dL Hemoglobin A1c 8.5 H (4.0-6.0) % Alkaline Phosphatase (38-126) U/L Total Protein (6.3-8.2) g/dL Albumin (3.5-5.0) g/dL 11/17/19 11/18/19 11/18/19 Range/Units 20:57 05:55 05:55 RBC 3.65 L (4.30-5.90) m/uL Hgb 12.2 L (13.0-17.5) gm/dL Hct 37.5 L (39.0-53.0) % MCV 102.9 H (80.0-100.0) fL Plt Count 58 L (150-450) k/uL Sodium 135 L (137-145) mmol/L Potassium 5.3 H (3.5-5.1) mmol/L Chloride 111 H (98-107) mmol/L Carbon Dioxide 17 L (22-30) mmol/L BUN 69 H (9-20) mg/dL Creatinine 2.62 H (0.66-1.25) mg/dL Glucose 218 H (74-99) mg/dL POC Glucose (mg/dL) 232 H (75-99) mg/dL Hemoglobin A1c (4.0-6.0) % Alkaline Phosphatase 161 H (38-126) U/L Total Protein 5.2 L (6.3-8.2) g/dL Albumin 2.5 L (3.5-5.0) g/dL 11/18/19 Range/Units 06:18 RBC (4.30-5.90) m/uL Hgb (13.0-17.5) gm/dL Hct (39.0-53.0) % MCV (80.0-100.0) fL Plt Count (150-450) k/uL Sodium (137-145) mmol/L Potassium (3.5-5.1) mmol/L Chloride (98-107) mmol/L Carbon Dioxide (22-30) mmol/L BUN (9-20) mg/dL Creatinine (0.66-1.25) mg/dL Glucose (74-99) mg/dL POC Glucose (mg/dL) 213 H (75-99) mg/dL Hemoglobin A1c (4.0-6.0) % Alkaline Phosphatase (38-126) U/L Total Protein (6.3-8.2) g/dL Albumin (3.5-5.0) g/dL Microbiology - Last 24 Hours (Table) 11/15/19 16:31 Urine Culture - Final Urine,Voided 11/15/19 16:31 Blood Culture - Preliminary Blood No Growth after 48 hours Assessment and Plan Assessment: Impression 1. Acute kidney injury secondary to low blood pressure, possibly from medications including Lasix, spironolactone and metoprolol and Flomax. Off off diuretics Creatinine is improving. Blood pressure remains low on metoprolol 25 twice a day for his coronary artery bypass graft status 2. Chronic kidney disease creatinine 1.3, CK D stage III and nephrosclerosis, possible diabetic nephropathy with 2+ protein, serum protein to physical is unremarkable 3. Coronary artery disease, status CABG in the remote past 4. Diabetes. Her sugars in the 200 range 5. Slight hyperkalemia secondary to transcellular shift from high blood sugars expected to improve Recommendation 1. The blood pressure being low, I'll reduce the metoprolol to 12.5 twice a day. 2. Patient could be discharged, deferred to the primary physician. 3. Because of hyperkalemia, hold off any Vincent inhibitors or potassium sparing diuretic.
[2019-11-18 11:59] LABS: Glucose,Whole Blood 317 mg/dL (75-99)
[2019-11-18 17:16] LABS: Glucose,Whole Blood 234 mg/dL (75-99)
[2019-11-18 20:18] LABS: Glucose,Whole Blood 230 mg/dL (75-99)
[2019-11-18] MEDS: METOPROLOL TARTRATE 12.5 MG TAB PO SCH (20:33)
[2019-11-18] MEDS: TAMSULOSIN 0.4 MG CAP.ER.24H PO SCH (20:33)
[2019-11-18] MEDS: LATANOPROST 0.005% OPHTH DROPS 2.5 ML BTL BOTH EYES SCH (20:36)
[2019-11-19 06:19] LABS: Glucose,Whole Blood 200 mg/dL (75-99)
[2019-11-19] MEDS: INSULIN ASPART (NovoLOG) 100 UNIT/ML VIAL SQ SCH ×2 (06:32→12:41)
[2019-11-19] MEDS ORDERED: INSULIN DETEMIR (LEVEMIR) 100 UNIT/ML SYR SQ SCH (07:00)
[2019-11-19 08:44] VITALS: RESP 16; TEMP 97.3
[2019-11-19] MEDS: SODIUM BICARBONATE TAB 650 MG TAB PO SCH ×2 (08:45→12:43)
[2019-11-19] MEDS: PRAVASTATIN SODIUM 40 MG TAB PO SCH (08:45)
[2019-11-19] MEDS: PANTOPRAZOLE 40 MG TABLET PO SCH (08:45)
[2019-11-19] MEDS: DORZOLAMIDE HCL 2% DROPS 10 ML BTL LEFT EYE SCH (08:46)
--- NOTE | 2019-11-19 09:04 | P.DS ---
Providers Date of admission: 11/15/19 16:03 Attending physician: Yasmin Jiang MD Consults: 11/15/19 16:07 Consult Physician Routine Consulting Provider: Nathaniel Aviles Consult Reason/Comments: known Do you want consulting provider notified?: Yes 11/15/19 18:02 Consult Physician Routine Consulting Provider: Dana Louise Consult Reason/Comments: Acute kidney failure Do you want consulting provider notified?: Yes Primary care physician: Sage Marques [facility] Course: 1. Recurrent left-sided pleural effusion with dyspnea 2. Acute Renal Failure, nonoliguric 3. Acute urinary tract infection 84 year old man with history of VTE on coumadin, DM on insulin HLD, Liver Disease, CAD presented with increasing shortness of breath due to known recurrent left sided pleural effusion. Pulmonary recommendations appreciated, thoracentesis with fluid analysis pending today with patient being discharged following procedure. Multiple repeat taps previously without etiology found. Echo with nml EF. Nephrology consulted for ARF, recommended holding all diuretics, and decreased metoprolol to 12.5mg BID from 50mg BID. Creatinine improved from 4.2 to 2.6, davis continued on discharge. Pt also treated for UTI with rocephin. I spent more than 30 minutes coordinating this discharge. PCP, Pulm, and Oncology follow up at discharge. Patient Condition at Discharge: Serious Plan - Discharge Summary Discharge Rx Participant: No New Discharge Prescriptions: New Ciprofloxacin HCl [Cipro] 500 mg PO BID 3 Days #6 tab Insulin Detemir (Levemir) [Levemir] 12 unit SQ DAILY@0700 #4 syr Metoprolol Tartrate [Lopressor] 12.5 mg PO BID #60 tab INSULIN ASPART (NovoLOG) [NovoLOG (formulary)] 0 unit SQ ACHS vial Sodium Bicarbonate Tab 650 mg PO QID tab Continue Dorzolamide 2% [Trusopt 2%] 1 drops LEFT EYE TID metFORMIN HCL [Glucophage] 500 mg PO AC-TID Latanoprost [Xalatan 0.005%] 1 drop BOTH EYES HS Pravastatin Sodium [Pravachol] 40 mg PO DAILY Tamsulosin [Flomax] 0.4 mg PO HS Allopurinol [Zyloprim] 100 mg PO DAILY Warfarin [Coumadin] 5 mg PO Q48H Discontinued Metoprolol Tartrate [Lopressor] 50 mg PO BID Furosemide [Lasix] 40 mg PO BID Spironolactone 50 mg PO BID Discharge Medication List Dorzolamide 2% [Trusopt 2%] 1 drops LEFT EYE TID 08/06/16 [History] Latanoprost [Xalatan 0.005%] 1 drop BOTH EYES HS 08/09/16 [History] metFORMIN HCL [Glucophage] 500 mg PO AC-TID 08/09/16 [History] Pravastatin Sodium [Pravachol] 40 mg PO DAILY 03/16/18 [History] Tamsulosin [Flomax] 0.4 mg PO HS 01/26/19 [History] Allopurinol [Zyloprim] 100 mg PO DAILY 11/15/19 [History] Warfarin [Coumadin] 5 mg PO Q48H 11/15/19 [History] Ciprofloxacin HCl [Cipro] 500 mg PO BID 3 Days #6 tab 11/19/19 [Rx] INSULIN ASPART (NovoLOG) [NovoLOG (formulary)] 0 unit SQ ACHS vial 11/19/19 [Rx] Insulin Detemir (Levemir) [Levemir] 12 unit SQ DAILY@0700 #4 syr 11/19/19 [Rx] Metoprolol Tartrate [Lopressor] 12.5 mg PO BID #60 tab 11/19/19 [Rx] Sodium Bicarbonate Tab 650 mg PO QID tab 11/19/19 [Rx] Follow up Appointment(s)/Referral(s): Sage Parks MD [Primary Care Provider] - 1-2 days Discharge Disposition: HOME WITH HOME HEALTH SERVICES
[2019-11-19 09:26] LABS: Basophils % (A) 0 %; Eosinophils # (A) 0.1 k/uL (0-0.7); Eosinophils % (A) 3 %; HCT 35.4 % (39.0-53.0); HGB 11.3 gm/dL (13.0-17.5); Lymphocytes % (A) 21 %; MCH 33.5 pg (25.0-35.0); MCV 104.8 fL (80.0-100.0); Macrocytosis Moderate; Mean Platelet Volume 10.3; Monocytes # (A) 0.4 k/uL (0-1.0); Monocytes % (A) 8 %; Neutrophils # (A) 3.2 k/uL (1.3-7.7); Neutrophils % (A) 67 %; RBC 3.38 m/uL (4.30-5.90); RDW 15.3 % (11.5-15.5); WBC 4.8 k/uL (3.8-10.6)
[2019-11-19 09:27] LABS: INR 1.3 (<1.2); Prothrombin Time 12.7 sec (9.0-12.0)
[2019-11-19 09:30] LABS: Potassium 4.9 mmol/L (3.5-5.1)
[2019-11-19 09:31] LABS: Platelet Count 48 k/uL (150-450)
--- NOTE | 2019-11-19 11:38 | P.PN ---
Subjective Patient is seen in follow-up for acute kidney injury and chronic kidney disease. Patient has chronic kidney disease stage III secondary to diabetic kidney disease with baseline creatinine near 1.4. Renal function continues to improve. Good urine output. No vomiting or diarrhea. Vital signs are stable. General: The patient appeared well nourished and normally developed. HEENT: Head exam is unremarkable. Neck is without jugular venous distension. LUNGS: Breath sounds decreased. HEART: Rate and Rhythm are regular. ABDOMEN: Soft, nontender. EXTREMITITES: No edema. Objective - Vital Signs Vital signs: Vital Signs Temp 97.3 F L 11/19/19 08:00 Pulse 69 11/19/19 08:00 Resp 16 11/19/19 08:00 BP 97/52 11/19/19 08:00 Pulse Ox 100 11/19/19 08:00 Intake & Output 11/18/19 11/19/19 11/19/19 18:59 06:59 18:59 Intake Total 540 400 240 Output Total 850 350 Balance 540 -450 -110 Weight 91.3 kg Intake: Intake, IV Titration 400 Amount Sodium Chloride 0.9% 1, 400 000 ml @ 50 mls/hr IV . Q20H [facility] Rx#:[id number] Oral 540 240 Output: Urine 850 350 Other: Voiding Method Indwelling Catheter Indwelling Catheter Indwelling Catheter - Labs CBC & Chem 7: 11/19/19 08:25 11/19/19 08:24 Labs: Abnormal Lab Results - Last 24 Hours (Table) 11/18/19 11/18/19 11/18/19 Range/Units 11:33 16:41 20:17 RBC (4.30-5.90) m/uL Hgb (13.0-17.5) gm/dL Hct (39.0-53.0) % MCV (80.0-100.0) fL Plt Count (150-450) k/uL PT (9.0-12.0) sec INR (<1.2) Sodium (137-145) mmol/L Chloride (98-107) mmol/L Carbon Dioxide (22-30) mmol/L BUN (9-20) mg/dL Creatinine (0.66-1.25) mg/dL Glucose (74-99) mg/dL POC Glucose (mg/dL) 317 H 234 H 230 H (75-99) mg/dL Calcium (8.4-10.2) mg/dL 11/19/19 11/19/19 11/19/19 Range/Units 06:18 08:24 08:24 RBC (4.30-5.90) m/uL Hgb (13.0-17.5) gm/dL Hct (39.0-53.0) % MCV (80.0-100.0) fL Plt Count (150-450) k/uL PT 12.7 H (9.0-12.0) sec INR 1.3 H (<1.2) Sodium 134 L (137-145) mmol/L Chloride 110 H (98-107) mmol/L Carbon Dioxide 18 L (22-30) mmol/L BUN 57 H (9-20) mg/dL Creatinine 2.22 H (0.66-1.25) mg/dL Glucose 245 H (74-99) mg/dL POC Glucose (mg/dL) 200 H (75-99) mg/dL Calcium 8.0 L (8.4-10.2) mg/dL 11/19/19 Range/Units 08:25 RBC 3.38 L (4.30-5.90) m/uL Hgb 11.3 L (13.0-17.5) gm/dL Hct 35.4 L (39.0-53.0) % MCV 104.8 H (80.0-100.0) fL Plt Count 48 L (150-450) k/uL PT (9.0-12.0) sec INR (<1.2) Sodium (137-145) mmol/L Chloride (98-107) mmol/L Carbon Dioxide (22-30) mmol/L BUN (9-20) mg/dL Creatinine (0.66-1.25) mg/dL Glucose (74-99) mg/dL POC Glucose (mg/dL) (75-99) mg/dL Calcium (8.4-10.2) mg/dL Microbiology - Last 24 Hours (Table) 11/15/19 16:31 Urine Culture - Final Urine,Voided 11/15/19 16:31 Blood Culture - Preliminary Blood No Growth after 72 hours Assessment and Plan Plan: Assessment: 1. Acute kidney injury secondary to ATN secondary to hypotension. Renal function improving. Creatinine 2.22 today. 2. Chronic kidney disease stage III with baseline creatinine of 1.4 secondary to diabetic kidney disease. 3. Insulin-dependent diabetes mellitus. 4. Metabolic acidosis secondary to acute kidney injury maintained on oral bicarb. Better. 5. Mild hyperkalemia secondary to acute kidney injury and metabolic acidosis. Better. Plan: Stable to be discharged home from nephrology standpoint. Follow up outpatient in 1-2 weeks. Avoid metformin as GFR less than 30. Maintain oral bicarb.
[2019-11-19 11:56] LABS: Glucose,Whole Blood 237 mg/dL (75-99)
--- NOTE | 2019-11-19 12:03 | P.PN ---
Subjective Progress Note Date: 11/19/19 Principal diagnosis: Shortness of breath, chronic loculated pleural effusion The patient is seen today 11/17/2019 in follow-up on the selective care unit. He is currently resting comfortably. No worsening shortness of breath, cough or congestion. Maintaining good O2 saturations up to 99% on room air. He's afebrile. Hemodynamically stable. Blood culture reveals no growth to date. Urine culture pending. White count 5.1. Hemoglobin 11.6. Sodium 134. Potassium 5.5. Bicarb 17. Creatinine 2.89. Continued on ceftriaxone. Patient seen today 11/18/2019 in follow-up on the selective care unit. He is currently sitting up in a chair at the bedside. Awake and alert in no acute distress. Maintaining good O2 saturations in the 90s on room air. He states he does get dyspneic with minimal exertion. No cough or congestion. No fever, chills or night sweats. Blood cultures reveal no growth. Urine culture reveals no growth. White count 5.9. Hemoglobin 12.2. Platelets 58,000. Sodium 135. Potassium 5.3. Bicarb 17. Creatinine 2.62. On 11/19/2019 patient seen in follow-up on selective care unit. He is awake and alert, in no acute distress, he is oriented 3, no altered mentation, answering questions appropriately, he denies any shortness of breath, no complaints of chest pain, he is currently on room air with a pulse ox of 96-100%, hemodynamically stable, no fever or chills, respirations are nonlabored, lung sounds are clear, diminished at the bases, no rhonchi or wheezes. No fever, chills or night sweats. His blood and urine cultures show no growth. Patient has been treated with Rocephin, has been rehydrated and his renal profile has improved, no leukocytosis, today's INR is 1.3, no complaints of dyspnea. Objective - Vital Signs Vital signs: Vital Signs Temp 97.3 F L 11/19/19 08:00 Pulse 69 11/19/19 08:00 Resp 16 11/19/19 08:00 BP 97/52 11/19/19 08:00 Pulse Ox 100 11/19/19 08:00 Intake & Output 11/18/19 11/19/19 11/19/19 18:59 06:59 18:59 Intake Total 540 400 240 Output Total 850 350 Balance 540 -450 -110 Weight 91.3 kg Intake: Intake, IV Titration 400 Amount Sodium Chloride 0.9% 1, 400 000 ml @ 50 mls/hr IV . Q20H [facility] Rx#:[id number] Oral 540 240 Output: Urine 850 350 Other: Voiding Method Indwelling Catheter Indwelling Catheter Indwelling Catheter - Exam GENERAL EXAM: Alert, very pleasant, 84-year-old white male, room air pulse ox of 96-100% comfortable in no apparent distress. HEAD: Normocephalic/atraumatic. EYES: Normal reaction of pupils, equal size. Conjunctiva pink, sclera white. NOSE: Clear with pink turbinates. THROAT: No erythema or exudates. NECK: No masses, no JVD, no thyroid enlargement, no adenopathy. CHEST: No chest wall deformity. Symmetrical expansion. LUNGS: Equal air entry with no crackles, wheeze, rhonchi or dullness. CVS: Regular rate and rhythm, normal S1 and S2, no gallops, no murmurs, no rubs ABDOMEN: Soft, nontender. No hepatosplenomegaly, normal bowel sounds, no guarding or rigidity. EXTREMITIES: No clubbing, no edema, no cyanosis, 2+ pulses and upper and lower extremities. MUSCULOSKELETAL: Muscle strength and tone normal. SPINE: No scoliosis or deformity SKIN: No rashes CENTRAL NERVOUS SYSTEM: Alert and oriented -3. No focal deficits, tone is normal in all 4 extremities. PSYCHIATRIC: Alert and oriented -3. Appropriate affect. Intact judgment and insight. - Labs CBC & Chem 7: 11/19/19 08:25 11/19/19 08:24 Labs: Abnormal Lab Results - Last 24 Hours (Table) 11/18/19 11/18/19 11/18/19 Range/Units 11:33 16:41 20:17 RBC (4.30-5.90) m/uL Hgb (13.0-17.5) gm/dL Hct (39.0-53.0) % MCV (80.0-100.0) fL Plt Count (150-450) k/uL PT (9.0-12.0) sec INR (<1.2) Sodium (137-145) mmol/L Chloride (98-107) mmol/L Carbon Dioxide (22-30) mmol/L BUN (9-20) mg/dL Creatinine (0.66-1.25) mg/dL Glucose (74-99) mg/dL POC Glucose (mg/dL) 317 H 234 H 230 H (75-99) mg/dL Calcium (8.4-10.2) mg/dL 11/19/19 11/19/19 11/19/19 Range/Units 06:18 08:24 08:24 RBC (4.30-5.90) m/uL Hgb (13.0-17.5) gm/dL Hct (39.0-53.0) % MCV (80.0-100.0) fL Plt Count (150-450) k/uL PT 12.7 H (9.0-12.0) sec INR 1.3 H (<1.2) Sodium 134 L (137-145) mmol/L Chloride 110 H (98-107) mmol/L Carbon Dioxide 18 L (22-30) mmol/L BUN 57 H (9-20) mg/dL Creatinine 2.22 H (0.66-1.25) mg/dL Glucose 245 H (74-99) mg/dL POC Glucose (mg/dL) 200 H (75-99) mg/dL Calcium 8.0 L (8.4-10.2) mg/dL 11/19/19 Range/Units 08:25 RBC 3.38 L (4.30-5.90) m/uL Hgb 11.3 L (13.0-17.5) gm/dL Hct 35.4 L (39.0-53.0) % MCV 104.8 H (80.0-100.0) fL Plt Count 48 L (150-450) k/uL PT (9.0-12.0) sec INR (<1.2) Sodium (137-145) mmol/L Chloride (98-107) mmol/L Carbon Dioxide (22-30) mmol/L BUN (9-20) mg/dL Creatinine (0.66-1.25) mg/dL Glucose (74-99) mg/dL POC Glucose (mg/dL) (75-99) mg/dL Calcium (8.4-10.2) mg/dL Microbiology - Last 24 Hours (Table) 11/15/19 16:31 Urine Culture - Final Urine,Voided 11/15/19 16:31 Blood Culture - Preliminary Blood No Growth after 72 hours Assessment and Plan Plan: Assessment: #1. Dyspnea secondary to recurrent left pleural effusion, somewhat chronic in nature, with loculation, with previous thoracentesis #2. History of chronic renal failure, chronic kidney disease, unspecified #3. History of DVT and history of pulmonary embolism on Coumadin #4. Diabetes mellitus #5. Hyperlipidemia #6. Chronic liver disease/liver cirrhosis #7. Degenerative joint disease #8. Benign prostatic hypertrophy #9. Coronary disease with previous bypass grafting Plan: Patient has remained stable from pulmonary perspective, no worsening dyspnea, he is on room air, no complaints of chest pain. Vital signs have been stable, no p lans for thoracentesis. Clinically stable, will follow up with the patient on outpatient basis, and reevaluate his pulmonary status, and the need to repeat thoracentesis I performed a history & physical examination of the patient and discussed their management with my nurse practitioner, Ale Del Rio. I reviewed the nurse practitioner's note and agree with the documented findings and plan of care. Lung sounds are positive for diminished breath sounds. The findings and the impression was discussed with the patient. I attest to the documentation by the nurse practitioner. Time with Patient: Less than 30
[2019-11-19 12:41] VITALS: BP 114/59; PULSE 77
[2019-11-19] MEDS: METOPROLOL TARTRATE 12.5 MG TAB PO SCH (12:41)
--- NOTE | 2019-11-19 15:38 | CDI ---
Documentation Clarification Form Date: 11/19/2019 03:29:29 PM From: Darlyn JacintoPASHA leach, CCDS Admit Date: 11/15/2019 04:03:00 PM Patient Name: Angel Michele Visit Number: [id number] Discharge Date: ATTENTION: The Clinical Documentation Specialists (CDI) and [facility] Coding Staff appreciate your assistance in clarifying documentation. Please respond to the clarification below the line at the bottom and electronically sign. The CDI & [facility] Coding staff will review the response and follow-up if needed. Please note: Queries are made part of the Legal Health Record. If you have any questions, please contact the author of this message via ITS. Dr. Rito Cruz: A diagnosis of UTI has been documented in the 11/14 ED note, the 11/14 History & Physical, subsequent Consults on 11/15, subsequent Progress Notes and the 11/18 Discharge Summary. Per the 11/14 History & Physical: "He's been placed on diuretics and has had Thornton catheter in place for over a month now which was replaced about 3 days ago with his doctor in the outpatient office he also reports chronic kidney disease. Thornton catheter care. 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 DM, DVT, Hyperlipidemia, Osteoarthritis, BPH, PE, CKD 3, Triple Vessel CAD status post CABG. Clinical Indicators: Patient presented to the ED on 11/14 with SOB & infection in urine. Urinalysis 11/14: turbid, 2+ protein, Moderate Blood, Large Esterase, RBC 67, WBC >182^. Urine culture (final) 11/14: Specimen unsuitable. Treatment: IV Rocephin, IV fluid 1,000 mls @ 130/hr, IV fluid bolus 1,000 mls @ 999 mls/hr, IV Dextrose/Water, IV Insulin, IV NaBicarb. In your professional opinion, can you please clarify the etiology of the UTI, if known? UTI related to Thornton catheter UTI not related to Thornton catheter Other condition, please specify Unable to determine Unable to determine - Nancy ToureLast Revision: June 2017) MTDD
--- NOTE | 2019-11-23 11:44 | CDI ---
Documentation Clarification Form Date: 11/23/19 From: Millicent Ho CCS Phone: If you have a question about this query, please contact Mary Zamudio, [employer] at [phone] between 8am and 5pm. Admit Date: 11/15/19 Discharge Date:11/19/19 Patient Name: Angel Michele Visit Number: [id number] ATTENTION: The Clinical Documentation Specialists (CDI) and [facility] Coding Staff appreciate your assistance in clarifying documentation. Please respond to the clarification below the line at the bottom and electronically sign. The CDI & [facility] Coding staff will review the response and follow-up if needed. Please note: Queries are made part of the Legal Health Record. If you have any questions, please contact the author of this message via ITS. Dear Dr. Cruz, A developing sacral ulcer is documented in ED. Progress notes state to evaluate bedsore and wound care daily. History/Risk Factors: Recurrent pleural effusion, ATN, UTI Clinical Indicators: Weakness and immobility. Location: Coccyx Wound description: Non--blanchable redness. Treatment: Turn patient q2h Elements for accurate and compliant documentation of an ulcer: *The location/laterality of the ulcer *Etiology (decubitus/pressure, diabetic, PVD) *Stage I-IV, Unstageable, Suspected Deep Tissue Injury (To the deepest stage) *If the ulcer was present at admission (POA) or occurred after admission In your professional opinion, can you please clarify the diagnosis, location, laterality and whether present on admission (POA): Stage 1 Pressure/Decubitus Ulcer (intact skin, non-blanching redness of local area) Stage 2 Pressure/Decubitus Ulcer (Partial thickness, loss of dermis, pink wound bed) Stage 3 Pressure/Decubitus Ulcer (Full thickness tissue loss) Stage 4 Pressure/Decubitus Ulcer (Full thickness tissue loss with exposed bone, tendon, or muscle. May have slough or eschar present) Unstageable Other condition, please specify Unable to determine Please indicate etiology of pressure ulcer (if known). Stage One Pressure Ulcer MTDD
== END 2019-11-19 13:35 | disposition home health service (06) | DRG 186 ==
LOC: EC 15:23 → 3SCARD 16:03
PROVIDERS: ADMIT Family Medicine; ATTEND Family Medicine
DX: J90 Pleural effusion, not elsewhere classified (principal); N17.0 Acute kidney failure with tubular necrosis; E87.2 Acidosis; K76.6 Portal hypertension; N39.0 Urinary tract infection, site not specified; E11.22 Type 2 diabetes mellitus with diabetic chronic kidney disease; K74.69 Other cirrhosis of liver; N18.3 Chronic kidney disease, stage 3 (moderate); Z79.4 Long term (current) use of insulin; E78.5 Hyperlipidemia, unspecified; E87.5 Hyperkalemia; I12.9 Hypertensive chronic kidney disease with stage 1 through stage 4 chronic kidney disease, or unspecified chronic kidney disease; I25.10 Atherosclerotic heart disease of native coronary artery without angina pectoris; M19.90 Unspecified osteoarthritis, unspecified site; N40.0 Benign prostatic hyperplasia without lower urinary tract symptoms; Z79.01 Long term (current) use of anticoagulants; Z79.82 Long term (current) use of aspirin; Z79.899 Other long term (current) drug therapy; Z86.711 Personal history of pulmonary embolism; Z86.718 Personal history of other venous thrombosis and embolism; Z87.440 Personal history of urinary (tract) infections; Z95.1 Presence of aortocoronary bypass graft; Z94.7 Corneal transplant status; L89.151 Pressure ulcer of sacral region, stage 1; Z88.5 Allergy status to narcotic agent; Z88.0 Allergy status to penicillin; Z88.8 Allergy status to other drugs, medicaments and biological substances; Z80.8 Family history of malignant neoplasm of other organs or systems
CPT/HCPCS: 36415; 71046; 76705; 80048; 80053; 81001; 82550; 83036; 83605; 83735; 83880; 84100; 84443; 84484; 85025; 85610; 85730; 87040; 87086; 93005; 93306; 96361; 96365; 96375; 99291